=== PATIENT | female | born 1935 | race Caucasian/White ===

== ENCOUNTER 2022-05-02 00:17 | Outpatient (CLI) | payer BC, SELFPAY | END 2022-05-02 00:18 | disposition home or self-care (01) | LOC: AMB 05-12 14:47 | PROVIDERS: PCP Family Medicine; Visit Provider Family Medicine | DX: R10.9 Unspecified abdominal pain (principal) | CPT/HCPCS: A0425; A0427 ==

== ENCOUNTER 2022-05-02 01:00 | Inpatient (IN) | payer BC, SELFPAY ==
[2022-05-02] VITALS (26 sets, daily range): BP systolic 70–128; BP diastolic 40–91; PULSE 75–137; RESP 16–26; TEMP 36.1–37.1; O2SAT 90–98
--- NOTE | 2022-05-02 | CRLHL7_ITS ---
For Patients: As a result of the Century Cures Act, medical imaging exams and procedure reports are released immediately into your electronic medical record. You may view this report before your referring provider. If you have questions, please contact your health care provider. Indication: Abdominal pain obstruction Technique: Noncontrast CT abdomen and pelvis Comparison: CT abdomen and pelvis 07/04/2021 Findings: Heart size normal no pericardial effusion. Nor pleural effusion. Subpleural ground-glass reticular opacities may represent atelectasis and/or fibrotic change. No effusion is seen. Small hiatal hernia fluid-filled distal esophagus. Enteric tube in the stomach. The unenhanced liver spleen pancreas unremarkable cholecystectomy. Dilatation of the common bile duct which is slightly increased from 07/04/2021. No abdominal aortic aneurysm. Kidneys are unremarkable. Adrenal glands unremarkable. Diffuse fluid filled dilated small bowel loops measuring up to 3.7 cm. Transition point not clearly identified but probably in the right lower quadrant. No free air or pneumatosis seen. Urinary bladder decompressed bones are demineralized. Numerous compression fractures of the thoracolumbar spine again seen. There is moderate compression fracture of L5 which has progressed from 07/04/2021. The other compression fractures appear fairly stable. Left mildly displaced superior and inferior pubic rami fractures with extension into the anterior acetabulum new from 2020 but appears probably subacute with some callus formation seen fracture lucencies are visualized. Minimal ascites Probable sacral insufficiency fracture on the left possibly involving much of the right as well. Impression: 1. Distal small-bowel obstruction with diffuse dilated fluid-filled small bowel loops measure up to 3.7 cm. Transition point not identified but probably in the right lower quadrant. No free air pneumatosis seen. 2. Cholecystectomy dilatation common bile duct which is minimally increased from 2020 could be correlated with laboratory exams for obstruction. 3. Bony demineralization. Numerous compression fractures of the thoracolumbar spine. Moderate compression fracture of L5 which appears progressive in 2020. Mildly displaced fractures of the left superior and inferior pubic rami with extension into the left anterior acetabulum probably subacute with some callus formation. Fracture lucencies are visualized. Probable sacral insufficiency fractures on the left and possibly on the right as well. Please note that all CT scans at this facility use dose modulation, iterative reconstruction, and/or weight-based dosing when appropriate to reduce radiation dose to as low as reasonably achievable. Dictated by Aleida Humphrey MD @ 05/02/2022 10:49:24 AM (Electronically Signed)
--- NOTE | 2022-05-02 01:06 | XR_ITS ---
Final Report Patient: BELTRAN SOMMERS Facility:?[facility] [place] Patient ID:?[id number] Site Patient ID:?[id number]. Site :?[id number] Study:?XRay Abdomen 2 views Flat and Upright-05/02/2022 2:01:22 AM Ordering Physician:Magdy Fuentes Final Report: INDICATION: Abdominal pain, vomiting TECHNIQUE: Abdomen/Pelvis radiograph 2 views COMPARISON: 03/03/2015 FINDINGS: Bowel: Multiple loops of air-filled dilated small bowel present throughout the abdomen measuring up to 3.6 cm and likely due to distal small bowel obstruction. Soft tissue: No evidence of pneumoperitoneum present. No suspicious calcifications noted. Surgical clips are noted in the right upper quadrant from prior cholecystectomy. Bone: Unremarkable for age. IMPRESSION: 1. Multiple loops of air-filled dilated small bowel present throughout the abdomen measuring up to 3.6 cm and likely due to distal small bowel obstruction. Dictated by Kirill Smith MD @ 05/02/2022 2:03:22 AM Dictated by: Kirill Smith MD @ 05/02/2022 02:03:26 (Electronic Signature)
--- NOTE | 2022-05-02 01:12 | ED_ITS ---
HPI - Abdominal Pain General Time Seen by Provider: 01:11 Date Seen: 05/02/22 Chief Complaint: Abdominal Pain Stated Complaint: Abdominal pain Source: patient Mode of arrival: EMS Limitations: no limitations History of Present Illness HPI narrative: Patient is the 86-year-old female who presents by EMS for progressive abdominal pain. She has had abdominal pain with distention over the past day. She reports 3 episodes today of bowel movements of which 2 were very large, she reports her abdomen is more distended. And tender throughout. She also reports that she vomited once in the EMS on the way over. She is eating a however last, she does not report any fevers chills dysuria frequency, and there is no blood in her stools or vomitus. I spoke to the doctor on-call for the skilled nursing, she thought she possibly was constipated but then the patient called 911 to be brought to the emergency room. She was recently hospitalized here in early part of April with pelvic fractures, and a sacral ulcer. She was treated non operatively and put on narcotic medications for this. MD elicited complaint: abdominal pain Pertinent past history: constipation Onset (ago): day(s) Pain Consistency: constant Location: diffuse Severity: moderate Quality: cramping Migration to: no migration Exacerbating factors: movement Relieving factors: nothing Related Data Patient : No Home Medications Medication Instructions Recorded Confirmed Lactobacillus acidophilus 0.5 mg PO 05/02/22 (100 million cell) tablet acetaminophen 325 mg tablet mg 05/02/22 albuterol sulfate 90 mcg/actuation INHALATION 05/02/22 aerosol inhaler (ProAir HFA) amlodipine 2.5 mg tablet mg 05/02/22 aspirin 81 mg tablet,delayed mg 05/02/22 release atorvastatin 40 mg tablet mg 05/02/22 calcitonin (salmon) 200 05/02/22 unit/actuation nasal spray calcium carbonate 200 mg calcium mg 05/02/22 (500 mg) chewable tablet (Calcium Antacid) calcium carbonate 500 mg calcium mg 05/02/22 (1,250 mg) tablet (Oyster Shell Calcium 500) carboxymethylcellulose sodium 1 % drp OPHTHALMIC (EYE) 05/02/22 eye drops (Artificial Tears (carboxymethylcellulose)) cetirizine 10 mg tablet mg 05/02/22 cetirizine 5 mg tablet mg 05/02/22 cholecalciferol (vitamin D3) 50 05/02/22 mcg (2,000 unit) tablet clopidogrel 75 mg tablet mg 05/02/22 coenzyme Q10 100 mg capsule mg PO 05/02/22 cadence.stocking,knee,reg,smal 05/02/22 05/02/22 (T.E.D. Anti-Embolism Stocking) estradiol 0.01% (0.1 mg/gram) VAGINAL 05/02/22 vaginal cream famotidine 20 mg tablet mg 05/02/22 furosemide 20 mg tablet mg 05/02/22 glucose 4 gram chewable tablet g 05/02/22 (TRUEplus Glucose) hydrocortisone 2.5 % topical cream applic TOPICAL 05/02/22 hydrocortisone 2.5 % topical cream 05/02/22 with perineal applicator hydrocortisone 5 mg tablet mg 05/02/22 insulin glargine 100 unit/mL (3 unit SUBCUT 05/02/22 mL) subcutaneous pen (Lantus Solostar U-100 Insulin) insulin glargine-yfgn 100 unit/mL unit SUBCUT 05/02/22 (3 mL) subcutaneous pen insulin lispro 100 unit/mL SUBCUT 05/02/22 subcutaneous pen (Humalog KwikPen (U-100) Insulin) levothyroxine 75 mcg tablet mcg 05/02/22 lisinopril 5 mg tablet mg 05/02/22 loratadine 10 mg tablet mg 05/02/22 magnesium oxide mg 05/02/22 magnesium oxide 400 mg (241.3 mg mg 05/02/22 magnesium) tablet mirtazapine 7.5 mg tablet mg 05/02/22 morphine 15 mg immediate release mg 05/02/22 tablet morphine 15 mg tablet,extended mg PO 05/02/22 release multivit-iron 18 mg-folic acid 400 tab PO 05/02/22 mcg-calcium 500 mg-minerals tablet (Women's One Daily) nystatin 100,000 unit/gram topical TOPICAL 05/02/22 powder olopatadine 0.2 % eye drops drp OPHTHALMIC (EYE) 05/02/22 ondansetron HCl 4 mg tablet mg 05/02/22 oxycodone 5 mg tablet mg 05/02/22 pen needle,diabetic dual safty 30 05/02/22 05/02/22 gauge x 3/16 (BD AutoShield Duo Pen Needle) polyethylene glycol 3350 17 g 05/02/22 gram/dose oral powder polyvinyl alcohol 1.4 % eye drops drp OPHTHALMIC (EYE) 05/02/22 sennosides 8.6 mg-docusate sodium PO 05/02/22 50 mg tablet (Senexon-S) sodium chloride 0.65 % nasal spray INTRANASAL 05/02/22 aerosol (Deep Sea Nasal) vitamin B complex (Vitamins B cap 05/02/22 Complex capsule) Allergies Allergy/AdvReac Type Severity Reaction Status Date / Time adhesive tape Allergy Mild Rash Verified 05/02/22 01:16 diclofenac Allergy Unknown Verified 05/02/22 01:16 aspartame Allergy Unverified 05/02/22 01:16 beclomethasone Allergy Unverified 05/02/22 01:16 bisacodyl Allergy Unverified 05/02/22 01:16 dexamethasone Allergy Unverified 05/02/22 01:16 doxycycline Allergy Unverified 05/02/22 01:16 erythromycin base Allergy Unverified 05/02/22 01:16 gabapentin Allergy Unverified 05/02/22 01:16 hydrochlorothiazide Allergy Unverified 05/02/22 01:16 lactase [From Dairy Aid] Allergy Unverified 05/02/22 01:16 meclizine Allergy Unverified 05/02/22 01:16 metformin Allergy Unverified 05/02/22 01:16 metoclopramide Allergy Unverified 05/02/22 01:16 nabumetone [From Relafen] Allergy Unverified 05/02/22 01:16 propranolol Allergy Unverified 05/02/22 01:16 raloxifene Allergy Unverified 05/02/22 01:16 ramipril Allergy Unverified 05/02/22 01:16 tobramycin Allergy Unverified 05/02/22 01:16 venlafaxine Allergy Unverified 05/02/22 01:16 Review of Systems Status of ROS Reports: 10 or more systems reviewed and unremarkable except as noted in History and below Const Denies: fever, chills, change in weight, fatigue or night sweats Eyes Denies: change in vision or blurry vision ENMT Denies: throat pain or neck pain Cardio Denies: chest pain, palpitations or shortness of breath with exertion Resp Denies: shortness of breath, cough, wheezing, stridor or pain on inspiration GI Reports: abdominal pain, nausea, vomiting and bloating; Denies: coffee grounds in vomit, heartburn, diarrhea or excessive passing of gas Denies: painful urination, urinary frequency or urinary urgency Musculo Denies: neck pain Integ/Breast Denies: rash or itching Neuro Denies: headache, numbness in extremities, weakness in extremities or lack of coordination Endo Denies: excessive urination, excessive thirst or fatigue [place]anthosh/Lymph Denies: easy bruising or easy bleeding Allergy/Immuno Denies: wheezing PFSH PFSH Medical History (Updated 05/02/22 @ 03:26 by Alfredo Carrion MD) Anxiety Asthma Atherosclerotic cardiovascular disease Cataract Chronic kidney disease (CKD) stage G3a/A1, moderately decreased glomerular filtration rate (GFR) between 45-59 mL/min/1.73 square meter and albuminuria creatinine ratio less than 30 mg/g Constipation Convulsions Diabetes mellitus type 1 Dorsalgia GERD (gastroesophageal reflux disease) Hyperlipidemia Hypothyroidism Osteoarthritis Pelvic fracture Postmenopausal atrophic vaginitis Pressure ulcer of sacral region, unstageable Primary adrenocortical insufficiency Primary hypertension Unspecified dementia without behavioral disturbance Vertebral fracture Surgical History (Updated 05/02/22 @ 01:37 by Nannette Bowman RN) No significant past surgical history Social History Smoking Status: Never smoker Second hand tobacco smoke exposure: No How often do you have a drink containing alcohol: never AUDIT-C Alcohol total score: 0 Non-prescribed substance use: denies use service: No Exam Narrative: Exam Narrative: Patient is elderly very thin female presenting here with the above complaints. She is alert and oriented x3. Head eyes ears nose and throat shown normal mu cosa, normal ears, normal tympanic membranes. No evidence of any erythema of the throat. Her neck is supple full range of motion. She has some itjw-mo-qrsuqulu kyphosis of her back. But her air entry bilaterally is easy. No evidence of bruising over her back is no tenderness of her thoracic lumbar or cervical areas. Her chest is good air entry bilaterally with no tenderness in her heart sounds are normal. Her abdomen is diffusely distended. She is then enough that she can see the small bowel protruding lines on the abdomen. No tenderness to pelvis she moves all his extremities well. With normal cap refill. However she is pale. With nurse Audra present I did a rectal examination which shows liquid stool but no large amounts stains Hemoccult negative. Const: Vital Signs, click to edit/add: Vital Signs - 24 hr 05/02/22 01:00 Temperature 98.0 F Pulse Rate [Right Pulse Oximeter] 89 Respiratory Rate 18 Blood Pressure [Le ft Upper Arm] 127/91 H Pulse Oximetry 97 Course Reevaluation(s) Reevaluation #1: Patient is had multiple episodes of vomiting here in the department. At this point I think a NG tube, and small amount of benzodiazepine will help her. She will need admission, and I will order a CT scan. I will talk to the the hospitalist. Patient also had a large bowel movement Time: 03:24 Vital Signs Vital signs: Initial Vital Signs Temperature 98.0 F 05/02/22 01:00 Temperature Source Temporal Artery Scan 05/02/22 01:00 Pulse Rate 89 05/02/22 01:00 Pulse Rhythm 05/02/22 01:00 Pulse Strength 0+ Absent 05/02/22 01:00 Respiratory Rate 18 05/02/22 01:00 Blood Pressure 127/91 H 05/02/22 01:00 Blood Pressure Mean 103 05/02/22 01:00 Blood Pressure Position Supine 05/02/22 01:00 Pulse Oximetry 97 05/02/22 01:00 Oxygen Delivery Method 05/02/22 01:00 Vital Signs Temperature 98.0 F 05/02/22 01:00 Pulse Rate 89 05/02/22 01:00 Respiratory Rate 18 05/02/22 01:00 Blood Pressure 127/91 H 05/02/22 01:00 Pulse Oximetry 97 05/02/22 01:00 Temperature 98.0 F 05/02/22 01:00 Pulse Rate 89 05/02/22 01:00 Respiratory Rate 18 05/02/22 01:00 Blood Pressure 127/91 H 05/02/22 01:00 Pulse Oximetry 97 05/02/22 01:00 MDM - Abdominal Pain MDM Narrative Medical decision making narrative: During the evaluation of this patient I considered multiple differential diagnosis including life-threatening differentials which are appendicitis, aortic aneurysm, mesenteric ischemia, bowel perforation, ectopic , volvulus and bowel obstruction, other differential diagnosis include but are not limited to inflammatory bowel disease, cholecystitis, pancreatitis, hepatitis, gastritis, GERD, diverticulitis, peptic ulcer disease, pyelonephritis/UTI, renal colic/stone, pelvic inflammatory disease, cervicitis, endometritis, intrauterine , dysfunctional uterine bleeding, ovarian cyst/torsion, spontaneous as well as other etiologies. She has had previous cholecystectomy and appendectomy. So the chance of a bowel obstruction is somewhat. Although I think constipation would be the most likely given her history. As the patient continues to vomit we will do an NG give her little Ativan. I will consult the hospitalist also. Differential Diagnosis Differential diagnosis: Likely abdominal pain, constipation, diverticulitis, gastroenteritis and small bowel obstruction Medical Records Attestation: I reviewed the patient's medical records. Lab Data Attestation: I reviewed the patient's lab results. Labs: Lab Results 05/02/22 05/02/22 05/02/22 Range/Units 01:25 01:55 01:55 WBC 12.66 H (4.50-11.00) K/uL RBC 4.37 (4.00-5.20) m/uL Hgb 13.5 (12.0-16.0) gm/dL Hct 41.6 (33.0-51.0) % MCV 95 (80-100) fL MCH 31 (26-34) pg MCHC 33 (32-36) gm/dL RDW Coeff of Sharmaine 14.7 (11.5-15.5) % Plt Count 349 (140-440) K/uL Neut % (Auto) 71.4 (42.0-72.0) % Lymph % (Auto) 16.7 L (20-44) % [place] % (Auto) 9.3 (0.0-11.0) % Eos % (Auto) 2.0 (0.0-7.0) % Baso % (Auto) 0.3 (0.0-3.0) % Neut # (Auto) 9.00 H (1.7-7.0) K/uL Lymph # (Auto) 2.10 (0.90-2.90) K/uL [place] # (Auto) 1.20 H (0.00-0.90) K/UL Eos # (Auto) 0.30 (0.00-0.50) K/uL Baso # (Auto) 0.00 (0.00-0.30) K/uL Abs Immat Gran (auto) 0.04 (0.00-0.30) K/uL Sodium 132 L (135-149) mmol/L Potassium 4.1 (3.6-5.1) mmol/L Chloride 97 (96-114) mmol/L Carbon Dioxide 26 (20-32) mmol/L BUN 18 (7-30) mg/dL Creatinine 0.8 (0.5-1.5) mg/dL Glucose 287 H (60-115) mg/dL Lactate (0.5-1.9) mmol/L Calcium 10.0 (8.4-10.6) mg/dL SARS-CoV-2 (PCR) Negative SARS-CoV-2 (Negative) Influenza Type A (PCR) NEGATIVE (Negative) Influenza Type B (PCR) NEGATIVE (Negative) RSV (PCR) NEGATIVE (Negative) 05/02/22 Range/Units 01:55 WBC (4.50-11.00) K/uL RBC (4.00-5.20) m/uL Hgb (12.0-16.0) gm/dL Hct (33.0-51.0) % MCV (80-100) fL MCH (26-34) pg MCHC (32-36) gm/dL RDW Coeff of Sharmaine (11.5-15.5) % Plt Count (140-440) K/uL Neut % (Auto) (42.0-72.0) % Lymph % (Auto) (20-44) % [place] % (Auto) (0.0-11.0) % Eos % (Auto) (0.0-7.0) % Baso % (Auto) (0.0-3.0) % Neut # (Auto) (1.7-7.0) K/uL Lymph # (Auto) (0.90-2.90) K/uL [place] # (Auto) (0.00-0.90) K/UL Eos # (Auto) (0.00-0.50) K/uL Baso # (Auto) (0.00-0.30) K/uL Abs Immat Gran (auto) (0.00-0.30) K/uL Sodium (135-149) mmol/L Potassium (3.6-5.1) mmol/L Chloride (96-114) mmol/L Carbon Dioxide (20-32) mmol/L BUN (7-30) mg/dL Creatinine (0.5-1.5) mg/dL Glucose (60-115) mg/dL Lactate 1.2 (0.5-1.9) mmol/L Calcium (8.4-10.6) mg/dL SARS-CoV-2 (PCR) (Negative) Influenza Type A (PCR) (Negative) Influenza Type B (PCR) (Negative) RSV (PCR) (Negative) Imaging Data Abdominal x-ray: Attestation: I have reviewed the pertinent imaging results. My impression: Bowel obstruction multiple air-fluid levels are seen. I will order a CT scan Radiologist's impression: Patient: BELTRAN SOMMERS Facility:?[facility] Patient ID:?[id number] Site Patient ID:?[id number]. Site :?[id number] Study:?XRay Abdomen 2 views Flat and Upright-05/02/2022 2:01:22 AM Ordering Physician:Magdy Fuentes Final Report: INDICATION: Abdominal pain, vomiting TECHNIQUE: Abdomen/Pelvis radiograph 2 views COMPARISON: 03/03/2015 FINDINGS: Bowel: Multiple loops of air-filled dilated small bowel present throughout the abdomen measuring up to 3.6 cm and likely due to distal small bowel obstruction. Soft tissue: No evidence of pneumoperitoneum present. No suspicious calcificat ions noted. Surgical clips are noted in the right upper quadrant from prior cholecystectomy. Bone: Unremarkable for age. IMPRESSION: 1. Multiple loops of air-filled dilated small bowel present throughout the abdomen measuring up to 3.6 cm and likely due to distal small bowel obstruction. Dictated by Kirill Smith MD @ 05/02/2022 2:03:22 AM Dictated by: Kirill Smith MD @ 05/02/2022 02:03:26 (Electronic Signature) Discharge Plan Discharge Clinical Impression: Small bowel obstruction Patient Disposition: Admitted As Inpatient
[2022-05-02 02:02] LABS: Lactate* 1.2 mmol/L (0.5-1.9)
[2022-05-02 02:05] LABS: Basophils Percent Auto 0.3 % (0.0-3.0); Hematocrit 41.6 % (33.0-51.0); Hemoglobin* 13.5 gm/dL (12.0-16.0); Immature Granulocytes Abs Auto 0.04 K/uL (0.00-0.30); Lymphocytes Percent Auto 16.7 % (20-44); Mean Corpuscular HGB Conc 33 gm/dL (32-36); Mean Corpuscular Hemoglobin 31 pg (26-34); Mean Corpuscular Volume 95 fL (80-100); Monocytes Percent Auto 9.3 % (0.0-11.0); Neutrophils Percent Auto 71.4 % (42.0-72.0); Platelet Count* 349 K/uL (140-440); RDW Coefficient of Variation % 14.7 % (11.5-15.5); Red Blood Count 4.37 m/uL (4.00-5.20); White Blood Count* 12.66 K/uL (4.50-11.00)
[2022-05-02 02:17] LABS: PCR FLU A NEGATIVE (Negative); PCR FLU B NEGATIVE (Negative); PCR RSV NEGATIVE (Negative); SARS PCR* Negative SARS-CoV-2 (Negative)
[2022-05-02] MEDS: ONDANSETRON 2 MG/ML inj 4 MG IVP ×3 (02:28→18:37)
[2022-05-02] MEDS: 0.9 % SODIUM CHLORIDE 500 ML 500 ML IV (02:29)
[2022-05-02 02:30] LABS: Blood Urea Nitrogen* 18 mg/dL (7-30); Carbon Dioxide* 26 mmol/L (20-32); Chloride* 97 mmol/L (96-114); Creatinine* 0.8 mg/dL (0.5-1.5); Estimated Glomerular Filt Rate 72.61; Glucose* 287 mg/dL (60-115); Potassium* 4.1 mmol/L (3.6-5.1); Sodium* 132 mmol/L (135-149)
--- NOTE | 2022-05-02 02:41 | ED.NURSE ---
pt. with small emesis. medicated with zofran.
[2022-05-02] MEDS: MORPHINE 4 MG/ML INJ IVP (02:52)
--- NOTE | 2022-05-02 03:33 | ED.NURSE ---
Addendum entered by Nannette Bowman RN 05/02/22 03:40: Gastric ph checked at the bedside to confirm NG placement. PH 4. Original Note: 14 kinyarwanda ng placed. liquid green stomach contents. confirmed with gastracult. marked at 56 at the nose. secured with clamp.
[2022-05-02] MEDS: LORazepam 2 MG/ML inj 1 MG IVP (03:36)
--- NOTE | 2022-05-02 04:52 | ED.NURSE ---
report given to Roxanne LANDRY on med/surg. pt. transported via cart to room 247. ng patent.
--- NOTE | 2022-05-02 05:48 | PM.IMCN1 ---
Date of Consult Primary Care Provider: Onur Schreiber MD Consult Narrative Narrative: Shira Stauffer is a 86 year old female [facility] Medical History (Updated 05/02/22 @ 03:26 by Alfredo Carrion MD) Anxiety Asthma Atherosclerotic cardiovascular disease Cataract Chronic kidney disease (CKD) stage G3a/A1, moderately decreased glomerular filtration rate (GFR) between 45-59 mL/min/1.73 square meter and albuminuria creatinine ratio less than 30 mg/g Constipation Convulsions Diabetes mellitus type 1 Dorsalgia GERD (gastroesophageal reflux disease) Hyperlipidemia Hypothyroidism Osteoarthritis Pelvic fracture Postmenopausal atrophic vaginitis Pressure ulcer of sacral region, unstageable Primary adrenocortical insufficiency Primary hypertension Unspecified dementia without behavioral disturbance Vertebral fracture Surgical History (Updated 05/02/22 @ 01:37 by Nannette Bowman RN) No significant past surgical history Social History Smoking Status: Never smoker Second hand tobacco smoke exposure: No How often do you have a drink containing alcohol: never AUDIT-C Alcohol total score: 0 Non-prescribed substance use: denies use service: No Meds Home Medications and Allergies Home Medications Medication Instructions Recorded Confirmed Type Lactobacillus acidophilus 0.5 mg PO 05/02/22 History (100 million cell) tablet acetaminophen 325 mg tablet mg 05/02/22 History albuterol sulfate 90 mcg/actuation INHALATION 05/02/22 History aerosol inhaler (ProAir HFA) amlodipine 2.5 mg tablet mg 05/02/22 History aspirin 81 mg tablet,delayed mg 05/02/22 History release atorvastatin 40 mg tablet mg 05/02/22 History calcitonin (salmon) 200 05/02/22 History unit/actuation nasal spray calcium carbonate 200 mg calcium mg 05/02/22 History (500 mg) chewable tablet (Calcium Antacid) calcium carbonate 500 mg calcium mg 05/02/22 History (1,250 mg) tablet (Oyster Shell Calcium 500) carboxymethylcellulose sodium 1 % drp OPHTHALMIC (EYE) 05/02/22 History eye drops (Artificial Tears (carboxymethylcellulose)) cetirizine 10 mg tablet mg 05/02/22 History cetirizine 5 mg tablet mg 05/02/22 History cholecalciferol (vitamin D3) 50 05/02/22 History mcg (2,000 unit) tablet clopidogrel 75 mg tablet mg 05/02/22 History coenzyme Q10 100 mg capsule mg PO 05/02/22 History cadence.stocking,knee,reg,smal 05/02/22 05/02/22 History (T.E.D. Anti-Embolism Stocking) estradiol 0.01% (0.1 mg/gram) VAGINAL 05/02/22 History vaginal cream famotidine 20 mg tablet mg 05/02/22 History furosemide 20 mg tablet mg 05/02/22 History glucose 4 gram chewable tablet g 05/02/22 History (TRUEplus Glucose) hydrocortisone 2.5 % topical cream applic TOPICAL 05/02/22 History hydrocortisone 2.5 % topical cream 05/02/22 History with perineal applicator hydrocortisone 5 mg tablet mg 05/02/22 History insulin glargine 100 unit/mL (3 unit SUBCUT 05/02/22 History mL) subcutaneous pen (Lantus Solostar U-100 Insulin) insulin glargine-yfgn 100 unit/mL unit SUBCUT 05/02/22 History (3 mL) subcutaneous pen insulin lispro 100 unit/mL SUBCUT 05/02/22 History subcutaneous pen (Humalog KwikPen (U-100) Insulin) levothyroxine 75 mcg tablet mcg 05/02/22 History lisinopril 5 mg tablet mg 05/02/22 History loratadine 10 mg tablet mg 05/02/22 History magnesium oxide mg 05/02/22 History magnesium oxide 400 mg (241.3 mg mg 05/02/22 History magnesium) tablet mirtazapine 7.5 mg tablet mg 05/02/22 History morphine 15 mg immediate release mg 05/02/22 History tablet morphine 15 mg tablet,extended mg PO 05/02/22 History release multivit-iron 18 mg-folic acid 400 tab PO 05/02/22 History mcg-calcium 500 mg-minerals tablet (Women's One Daily) nystatin 100,000 unit/gram topical TOPICAL 05/02/22 History powder olopatadine 0.2 % eye drops drp OPHTHALMIC (EYE) 05/02/22 History ondansetron HCl 4 mg tablet mg 05/02/22 History oxycodone 5 mg tablet mg 05/02/22 History pen needle,diabetic dual safty 30 05/02/22 05/02/22 History gauge x 3/16 (BD AutoShield Duo Pen Needle) polyethylene glycol 3350 17 g 05/02/22 History gram/dose oral powder polyvinyl alcohol 1.4 % eye drops drp OPHTHALMIC (EYE) 05/02/22 History sennosides 8.6 mg-docusate sodium PO 05/02/22 History 50 mg tablet (Senexon-S) sodium chloride 0.65 % nasal spray INTRANASAL 05/02/22 History aerosol (Deep Sea Nasal) vitamin B complex (Vitamins B cap 05/02/22 History Complex capsule) Allergies Allergy/AdvReac Type Severity Reaction Status Date / Time adhesive tape Allergy Mild Rash Verified 05/02/22 01:16 diclofenac Allergy Unknown Verified 05/02/22 01:16 aspartame Allergy Unverified 05/02/22 01:16 beclomethasone Allergy Unverified 05/02/22 01:16 bisacodyl Allergy Unverified 05/02/22 01:16 dexamethasone Allergy Unverified 05/02/22 01:16 doxycycline Allergy Unverified 05/02/22 01:16 erythromycin base Allergy Unverified 05/02/22 01:16 gabapentin Allergy Unverified 05/02/22 01:16 hydrochlorothiazide Allergy Unverified 05/02/22 01:16 lactase [From Dairy Aid] Allergy Unverified 05/02/22 01:16 meclizine Allergy Unverified 05/02/22 01:16 metformin Allergy Unverified 05/02/22 01:16 metoclopramide Allergy Unverified 05/02/22 01:16 nabumetone [From Relafen] Allergy Unverified 05/02/22 01:16 propranolol Allergy Unverified 05/02/22 01:16 raloxifene Allergy Unverified 05/02/22 01:16 ramipril Allergy Unverified 05/02/22 01:16 tobramycin Allergy Unverified 05/02/22 01:16 venlafaxine Allergy Unverified 05/02/22 01:16 Exam Const: Vital Signs, click to edit/add: Vital Signs - 24 hr 05/02/22 01:00 05/02/22 03:40 05/02/22 04:55 Temperature 98.0 F 98.0 F Pulse Rate 76 Pulse Rate [Right Pulse Oximeter] 89 75 Respiratory Rate 18 16 16 Blood Pressure 127/89 Blood Pressure [Le ft Upper Arm] 127/91 H 128/84 Pulse Oximetry 97 97 Labs Labs: Short CBC 05/02/22 Range/Units 01:55 WBC 12.66 H (4.50-11.00) K/uL Hgb 13.5 (12.0-16.0) gm/dL Hct 41.6 (33.0-51.0) % Plt Count 349 (140-440) K/uL [facility] 05/02/22 01:55 Sodium 132 L Potassium 4.1 Chloride 97 Carbon Dioxide 26 BUN 18 Creatinine 0.8 Glucose 287 H Calcium 10.0 Assessment and Plan Assessment and plan (1) Small bowel obstruction: Status: Acute Plan [facility] Hospitalist CONSULTATION NOTE: Reason for consult: Suspected small bowel obstruction HPI: Patient is a pleasant 86-year-old female who was admitted for suspected small bowel obstruction. She has received pain medications and benzodiazepine in the ED so she is currently quite sleepy and not providing any history. CODE STATUS was discussed downstairs with the ED provider and she is noted to be DNR/DNI. She did have an NG tube placed after abdominal x-ray was concerning for bowel obstruction. From reviewing ED provider note patient has had several bowel movements. She does have a CT scan ordered but they have been unable to complete it currently. Exam (performed via interactive video with assistance of bedside nurse): General: Drowsy, no acute distress HEENT: Pupils reported ERRL, oral mucosa pink and moist without erythema Lungs: Clear to auscultation bilaterally without crackle or wheeze CV: Regular rate and rhythm without loud murmur rub or gallop Abd: Bowel sounds present, some distention, but no guarding on palpation, does complain of pain per nurse. Ext: No pitting edema noted Skin: No rashes, bruises or lesions appreciated on gross visualization of exposed skin Neuro: Alert, oriented x 3. CN III -VII, XI, XII grossly intact, moves all extremities without any significant focal deficit appreciated by nurse Assessment and Plan: 1. Suspected small bowel obstruction Patient is 86-year-old female admitted from [facility] for suspected small bowel obstruction on abdominal x-ray. She has had several bowel movements so she may have a transition point a bit higher up if she does have a bowel obstruction. Surgery consult should be considered assuming CT scan is consistent with a bowel obstruction once it can be completed. In the interim we will keep patient on gentle IV hydration. Her NG tube will remain to low intermittent suction. She has PRNs available for pain and nausea. Chronic outpatient medications will need to be restarted when patient can take p.o. We will hold off on ordering pharmacologic DVT prophylaxis at this point in time, but they should be ordered in the first 24 hours if surgery is not planned. Patient is a DNR. [facility] This service is available for further assistance as requested by your care team by calling [phone].
[2022-05-02] MEDS: MORPHINE 2 MG/ML inj IVP ×4 (06:15→15:49)
[2022-05-02] MEDS: 0.9 % SODIUM CHLORIDE 1000 ml 1,000 ML 75 ML IV (06:15)
--- NOTE | 2022-05-02 07:32 | PM.IMPN1 ---
Subjective Interval history: ADMISSION HISTORY AND PHYSICAL - HOSPITALIST Chief Complaint: HPI: PAST MEDICAL HISTORY: MEDICATIONS: ALLERGIES: SURGICAL HISTORY: FAMILY HISTORY: Reviewed in EMR HABITS: SOCIAL HISTORY: INVESTIGATIONS: LABS/MICRO/ECG/IMAGING ADMISSION HISTORY AND PHYSICAL - HOSPITALIST Chief Complaint: HPI: PAST MEDICAL HISTORY: MEDICATIONS: ALLERGIES: SURGICAL HISTORY: FAMILY HISTORY: Reviewed in EMR HABITS: SOCIAL HISTORY: INVESTIGATIONS: LABS/MICRO/ECG/IMAGING REVIEW OF SYSTEMS: 12-point ROS completed with patient and negative unless otherwise stated in HPI or below. PHYSICAL EXAM: CODE STATUS: CONSTITUTIONAL: Conversive, good historian. A/O. Knows setting and context. VITAL SIGNS: see record. HEENT: Normocephalic, atraumatic. PERRL, EOMI, conjunctivae pink, no scleral icterus. Ears and nose externally normal. Pharynx normal. NECK: No JVD. No carotid bruit, no thyromegaly, no adenopathy. CHEST: Clear to auscultation bilaterally HEART: S1 and S2 normal. No harsh murmurs. Edema MUSCULOSKELETAL: No gross joint deformity or swelling. NEURO: Cranial nerves intact. Grossly intact. No asymmetric findings. SKIN: No rashes, petechiae, concerning changes PSYCHIATRIC: Euthymic. ADMIT DVT: Lovenox GI: PO intake Time spent: 70 minutes examining patient, conferring with family and patient, care staff, developing care plan REVIEW OF SYSTEMS: 12-point ROS completed with patient and negative unless otherwise stated in HPI or below. PHYSICAL EXAM: CODE STATUS: CONSTITUTIONAL: Conversive, good historian. A/O. Knows setting and context. VITAL SIGNS: see record. HEENT: Normocephalic, atraumatic. PERRL, EOMI, conjunctivae pink, no scleral icterus. Ears and nose externally normal. Pharynx normal. NECK: No JVD. No carotid bruit, no thyromegaly, no adenopathy. CHEST: Clear to auscultation bilaterally HEART: S1 and S2 normal. No harsh murmurs. Edema MUSCULOSKELETAL: No gross joint deformity or swelling. NEURO: Cranial nerves intact. Grossly intact. No asymmetric findings. SKIN: No rashes, petechiae, concerning changes PSYCHIATRIC: Euthymic. ADMIT DVT: Lovenox GI: PO intake Time spent: 70 minutes examining patient, conferring with family and patient, care staff, developing care plan Exam Const: Vital Signs, click to edit/add: Vital Signs - 24 hr 05/02/22 01:00 05/02/22 03:40 05/02/22 04:55 Temperature 98.0 F 98.0 F Pulse Rate 76 Pulse Rate [Apical ] Pulse Rate [Right Pulse Oximeter] 89 75 Respiratory Rate 18 16 16 Blood Pressure 127/89 Blood Pressure [Le ft Upper Arm] 127/91 H 128/84 Blood Pressure [Ri ght Arm] Pulse Oximetry 97 97 05/02/22 05:25 05/02/22 06:01 Temperature 97 F L Pulse Rate Pulse Rate [Apical ] 75 Pulse Rate [Right Pulse Oximeter] Respiratory Rate 16 22 Blood Pressure Blood Pressure [Le ft Upper Arm] Blood Pressure [Ri ght Arm] 111/69 Pulse Oximetry 92 92 Labs Labs: Laboratory Results - last 24 hr 05/02/22 05/02/22 05/02/22 01:25 01:55 01:55 WBC 12.66 H RBC 4.37 Hgb 13.5 Hct 41.6 MCV 95 MCH 31 MCHC 33 RDW Coeff of Sharmaine 14.7 Plt Count 349 Neut % (Auto) 71.4 Lymph % (Auto) 16.7 L [place] % (Auto) 9.3 Eos % (Auto) 2.0 Baso % (Auto) 0.3 Neut # (Auto) 9.00 H Lymph # (Auto) 2.10 [place] # (Auto) 1.20 H Eos # (Auto) 0.30 Baso # (Auto) 0.00 Abs Immat Gran (auto) 0.04 Sodium 132 L Potassium 4.1 Chloride 97 Carbon Dioxide 26 BUN 18 Creatinine 0.8 Glucose 287 H Lactate Calcium 10.0 SARS-CoV-2 (PCR) Negative SARS-CoV-2 Influenza Type A (PCR) NEGATIVE Influenza Type B (PCR) NEGATIVE RSV (PCR) NEGATIVE 05/02/22 01:55 WBC RBC Hgb Hct MCV MCH MCHC RDW Coeff of Sharmaine Plt Count Neut % (Auto) Lymph % (Auto) [place] % (Auto) Eos % (Auto) Baso % (Auto) Neut # (Auto) Lymph # (Auto) [place] # (Auto) Eos # (Auto) Baso # (Auto) Abs Immat Gran (auto) Sodium Potassium Chloride Carbon Dioxide BUN Creatinine Glucose Lactate 1.2 Calcium SARS-CoV-2 (PCR) Influenza Type A (PCR) Influenza Type B (PCR) RSV (PCR)
--- NOTE | 2022-05-02 07:34 | P.IMHP_ITS ---
Hospitalist- H&P: HPI History of Present Illness Date Seen: 05/02/22 Chief complaint: Ambulance Narrative: ADMISSION HISTORY AND PHYSICAL - HOSPITALIST Chief Complaint: Abdominal pain HPI: This is 86-year-old with a history of chronic kidney disease, diabetes, history of pelvic fractures, hypertension, mild dementia who presents with increasing abdominal pain. She lives in a retirement on the [facility] [place]. She had been reporting some abdominal pain with distention over the last 24 hours. She contacted the nurse who then walked her through constipation home care. Her pain increased. She called 911. She was brought in with vomiting and severe abdominal pain. Any movement seemed to make it worse. Pain was not localized. It was described as cramping. Nothing was improving even a bowel movement. She had had 2 of those in the last 24 hours. She had been vomiting small amounts of bilious fluids. Not reporting blood in stool or vomit. PAST MEDICAL HISTORY: Chronic kidney disease Atherosclerotic heart disease Diabetes mellitus, type 1. Insulin requiring Chronic pain History of fall with subsequent seizure in April of 2022. This fall caused a fracture of the left symphysis pubis and right superior pubic ramus. Hypothyroidism History of pelvic fracture Protein calorie malnutrition History of adrenal cortical insufficiency Hypertension Cognitive decline with anxiety MEDICATIONS: Acetaminophen Aspirin 81 mg atorvastatin 40 mg Calcitonin nasal spray Vitamin-D Plavix 75 mg daily Coenzyme Q10 Estradiol vaginal cream Pepcid 20 mg Q 12 Hydrocortisone 5-10 mg b.i.d. Insulin glargine 11 units daily mealtime insulin 2-5 units t.i.d. Levothyroxine 75 mcg Lisinopril 5 mg daily Magnesium oxide 250 mg daily Morphine ER 15 mg t.i.d. Nitroglycerin 0.4 mg sublingual Q 5 minutes p.r.n. Oxycodone 5 mg q.6 p.r.n. MiraLax ALLERGIES: Multiple. See above. SURGICAL HISTORY: Angioplasty Appendectomy Cholecystectomy Colposcopy D&C Mastoidectomy Tonsils and adenoidectomy FAMILY HISTORY: Reviewed in EMR HABITS: Nonsmoker Nondrinker SOCIAL HISTORY: Torey is the [id number] INVESTIGATIONS: LABS/MICRO/ECG/IMAGING Afebrile Pulse has been tachycardic from 1 0 to up to 130s, sinus tach Blood pressures have been soft and hypotensive as low as 70/50 over 80/46. Currently 113/49 Respiratory rate 24 Pulse oximetry 90% on 2 L 43.5 kilos Fluctuating white blood cell count. Hemoglobin stable 13.5-12.6 Metabolic acidosis with a pH of 7.2 Increasing evidence of LUPE, with creatinine up to 1.8 from 0.8 Elevated lactic acid Other labs reviewed in the diagnostics tab UA concentrated no obvious infection 2 KUBsand 2 CTs 1 with contrast 1 without all showed dilated fluid filled loops. Transition point is difficult to appreciate but is felt to be in the right quadrant. REVIEW OF SYSTEMS: 12-point ROS completed with patient and negative unless otherwise stated in HPI or below. PHYSICAL EXAM: CODE STATUS: DNR/DNI CONSTITUTIONAL: Severe pain. Pale. Arousable. Tells me initially that she does not want any interventions other than pain medicine and then later tells me she would like to go for surgery. Cachectic appearing. VITAL SIGNS: see record. Hypotensive. Tachycardic. D compensating. HEENT: Normocephalic, atraumatic. PERRL, EOMI, conjunctivae pink, no scleral icterus. Ears and nose externally normal. Pharynx normal. Dry mucous membranes. NECK: No JVD. No carotid bruit, no thyromegaly, no adenopathy. CHEST: Clear to auscultation bilaterally HEART: S1 and S2 normal. No harsh murmurs. No Edema Abdomen: distended. tender diffusely. Quiescent bowel sounds. MUSCULOSKELETAL: No gross joint deformity or swelling. NEURO: Cranial nerves intact. Grossly intact. No asymmetric findings. SKIN: No rashes, petechiae, concerning changes PSYCHIATRIC: Euthymic. ADMIT DVT: SCDs GI: Ppi. Time spent: 90 minutes examining patient, conferring with family and patient, care staff, developing care plan. 60 minutes of this is in critical care in which I ordered follow-up imaging and discussed with general surgery. I was in the room 4 or 5 times consulting with the family, reassessing my patient. She was hypotensive and tachycardic. We lost IV access. I have ordered blood cultures and broad-spectrum antibiotics, Monroe catheter. Chest x-ray has been reviewed. Patient has little reserve Likely needs surgery for adhesion takedown and resolution of her small-bowel obstruction. The patient is developing signs of sepsis, multiorgan system failure, poor tolerance of this pain. [facility] Medical History (Updated 05/02/22 @ 15:37 by Leigh Ann Reaves MD) Anxiety Asthma Atherosclerotic cardiovascular disease Cataract Chronic kidney disease (CKD) stage G3a/A1, moderately decreased glomerular filtration rate (GFR) between 45-59 mL/min/1.73 square meter and albuminuria creatinine ratio less than 30 mg/g Constipation Convulsions Diabetes mellitus type 1 Dorsalgia GERD (gastroesophageal reflux disease) Hyperlipidemia Hypothyroidism Osteoarthritis Pelvic fracture Postmenopausal atrophic vaginitis Pressure ulcer of sacral region, unstageable Primary adrenocortical insufficiency Primary hypertension Type 1 diabetes mellitus Unspecified dementia without behavioral disturbance Vertebral fracture Surgical History (Updated 05/02/22 @ 01:37 by Nannette Bowman RN) No significant past surgical history Social History Highest level of school completed/degree received: don't know Smoking Status: Never smoker Do you use any of these nicotine containing products: None Second hand tobacco smoke exposure: No How often do you have a drink containing alcohol: never AUDIT-C Alcohol total score: 0 Non-prescribed substance use: denies use Caffeine: No service: No Meds Home Medications and Allergies Home Medications Medication Instructions Recorded Confirmed Type acetaminophen 325 mg tablet 650 mg PO QID PRN 05/02/22 05/02/22 History aspirin 81 mg tablet,delayed 81 mg PO DAILY 05/02/22 05/02/22 History release atorvastatin 40 mg tablet 40 mg PO DAILY 05/02/22 05/02/22 History calcitonin (salmon) 200 1 spray INTRANASAL (ALT) DAILY 05/02/22 05/02/22 History unit/actuation nasal spray cholecalciferol (vitamin D3) 50 50 mcg PO DAILY 05/02/22 05/02/22 History mcg (2,000 unit) tablet clopidogrel 75 mg tablet 75 mg PO DAILY 05/02/22 05/02/22 History coenzyme Q10 100 mg capsule 100 mg PO DAILY 05/02/22 05/02/22 History cadence.stocking,knee,reg,smal 05/02/22 05/02/22 History (T.E.D. Anti-Embolism Stocking) estradiol 0.01% (0.1 mg/gram) 1 appful VAGINAL .FRIDAY,Friday05/02/22 05/02/22 History vaginal cream famotidine 20 mg tablet 20 mg PO Q12H 05/02/22 05/02/22 History glucose 4 gram chewable tablet 4 g PO PRN PRN 05/02/22 05/02/22 History (TRUEplus Glucose) hydrocortisone 2.5 % topical cream 1 applic TOPICAL BID PRN 05/02/22 05/02/22 History with perineal applicator hydrocortisone 5 mg tablet 5 - 10 mg PO BID 05/02/22 05/02/22 History insulin glargine 100 unit/mL (3 11 unit SUBCUT DAILY 05/02/22 05/02/22 History mL) subcutaneous pen (Lantus Solostar U-100 Insulin) insulin lispro 100 unit/mL 2 - 5 unit SUBCUT TIDWM 05/02/22 05/02/22 History subcutaneous pen (Humalog KwikPen (U-100) Insulin) lactobacillus combination no.4 3 3,000 mmu cells PO DAILY 05/02/22 05/02/22 History billion cell capsule (Probiotic) levothyroxine 75 mcg tablet 75 mcg PO DAILY 05/02/22 05/02/22 History lisinopril 5 mg tablet 5 mg PO DAILY 05/02/22 05/02/22 History loratadine 10 mg tablet 10 mg PO DAILY 05/02/22 05/02/22 History magnesium oxide 250 mg PO DAILY 05/02/22 05/02/22 History morphine 15 mg tablet,extended 15 mg PO TID 05/02/22 05/02/22 History release multivit-iron 18 mg-folic acid 400 1 tab PO DAILY 05/02/22 05/02/22 History mcg-calcium 500 mg-minerals tablet (Women's One Daily) nitroglycerin 0.4 mg sublingual 0.4 mg SUBLINGUAL Q5M 05/02/22 05/02/22 History tablet (Nitrostat) nystatin 100,000 unit/gram topical 1 applic TOPICAL BID PRN 05/02/22 05/02/22 History powder olopatadine 0.2 % eye drops 1 drp OPHTHALMIC (EYE) DAILY 05/02/22 05/02/22 History oxycodone 5 mg tablet 5 mg PO Q6H PRN 05/02/22 05/02/22 History pen needle,diabetic dual safty 30 05/02/22 05/02/22 History gauge x 3/16 (BD AutoShield Duo Pen Needle) polyethylene glycol 3350 17 17 g PO BID 05/02/22 05/02/22 History gram/dose oral powder sennosides 8.6 mg-docusate sodium 1 tab-cap PO BID PRN 05/02/22 05/02/22 History 50 mg tablet (Senexon-S) sodium chloride 0.65 % nasal spray 1 spray INTRANASAL BID 05/02/22 05/02/22 History aerosol (Deep Sea Nasal) vitamin B complex (Vitamins B 1 cap PO DAILY 05/02/22 05/02/22 History Complex capsule) Allergies Allergy/AdvReac Type Severity Reaction Status Date / Time adhesive tape Allergy Mild Rash Verified 05/02/22 01:16 diclofenac Allergy Unknown Verified 05/02/22 01:16 aspartame Allergy Unverified 05/02/22 01:16 beclomethasone Allergy Unverified 05/02/22 01:16 bisacodyl Allergy Unverified 05/02/22 01:16 dexamethasone Allergy Unverified 05/02/22 01:16 doxycycline Allergy Unverified 05/02/22 01:16 erythromycin base Allergy Unverified 05/02/22 01:16 gabapentin Allergy Unverified 05/02/22 01:16 hydrochlorothiazide Allergy Unverified 05/02/22 01:16 lactase [From Dairy Aid] Allergy Unverified 05/02/22 01:16 meclizine Allergy Unverified 05/02/22 01:16 metformin Allergy Unverified 05/02/22 01:16 metoclopramide Allergy Unverified 05/02/22 01:16 nabumetone [From Relafen] Allergy Unverified 05/02/22 01:16 propranolol Allergy Unverified 05/02/22 01:16 raloxifene Allergy Unverified 05/02/22 01:16 ramipril Allergy Unverified 05/02/22 01:16 tobramycin Allergy Unverified 05/02/22 01:16 venlafaxine Allergy Unverified 05/02/22 01:16 Exam Const: Vital Signs, click to edit/add: Vital Signs - 24 hr 05/02/22 01:00 05/02/22 03:40 05/02/22 04:55 Temperature 98.0 F 98.0 F Pulse Rate 76 Pulse Rate [Apical ] Pulse Rate [Right Pulse Oximeter] 89 75 Respiratory Rate 18 16 16 Blood Pressure 127/89 Blood Pressure [Le ft Upper Arm] 127/91 H 128/84 Blood Pressure [Ri ght Arm] Pulse Oximetry 97 97 05/02/22 05:25 05/02/22 06:01 Temperature 97 F L Pulse Rate Pulse Rate [Apical ] 75 Pulse Rate [Right Pulse Oximeter] Respiratory Rate 16 22 Blood Pressure Blood Pressure [Le ft Upper Arm] Blood Pressure [Ri ght Arm] 111/69 Pulse Oximetry 92 92 Hospitalist - H&P: Result Labs Labs: Short CBC 05/02/22 Range/Units 01:55 WBC 12.66 H (4.50-11.00) K/uL Hgb 13.5 (12.0-16.0) gm/dL Hct 41.6 (33.0-51.0) % Plt Count 349 (140-440) K/uL BMP 05/02/22 01:55 Sodium 132 L Potassium 4.1 Chloride 97 Carbon Dioxide 26 BUN 18 Creatinine 0.8 Glucose 287 H Calcium 10.0 Assessment and Plan Assessment and plan (1) Small bowel obstruction: Status: Acute Assessment and Plan: Significant concern for ischemic bowel as it relates to her small-bowel obstruction. NG tube was placed. Attempt at conservative care is failing. NG tube has been intermittently successful but currently draining green bilious fluid. PH shows a metabolic acidosis. Lactate is increasing. Creatinine is increasing. Heart rate is increasing blood pressure is soft.Her pain is being controlled with morphine. She is receiving IV fluid bolus. General surgery is aware. We have reordered her CT with contrast. There was no actual transition point noted. Likely adhesive disease. Monroe catheter was placed. Patient moved to the ICU. Continuous monitoring. (2) LUPE (acute kidney injury): Status: Acute Assessment and Plan: Creatinine started at 0.8 and is now currently 1.8. Patient is getting fluids. Ischemic bowel related to the small-bowel obstruction is likely at fault. (3) Sepsis: Status: Acute Assessment and Plan: Blood cultures, urine culture. IV ertapenem has been started. (4) Type 1 diabetes mellitus: Status: Acute Plan Insulin drip with D5 LR likely needed this evening after surgery. Patient may need a central line. Pressors may be indicated. Fluid resuscitation and parental nutrition is likely needed. Patient is high risk for complication and multi organ system failure
--- NOTE | 2022-05-02 09:07 | XR_ITS ---
Final Report Patient: BELTRAN SOMMERS Facility:?[facility] Patient ID:?[id number] Site Patient ID:?[id number]. Site :?[id number] Study:?XRay Abdomen 1V-05/02/2022 9:29:39 AM Ordering Physician:?Jean Paul Beltrán Final Report: Indication: Small-bowel obstruction Technique: KUB Comparison: KUB 05/02/2022 Findings: NG tube in the stomach. Diffuse air-filled dilated small bowel loops measuring up to 3.6 centimeters overall not significantly changed. Bowel loops may be minimally less distended no free air seen. Dictated by Aleida Humphrey MD @ 05/02/2022 9:46:01 AM (Electronic Signature)
--- NOTE | 2022-05-02 09:26 | PC.SOCIAL ---
Discharge plan: Called [facility] and spoke with nursing who confirmed pt is on a bed hold at the [facility] group home and can return at discharge. finish repair worker to follow up as needed.
[2022-05-02 09:41] LABS: HCO3 VBG 26 mmol/L (21-28); PCO2 VBG 54 mmHG (40-50); PO2 VBG 26.9 mmHG (25-47); pH VBG 7.285 (7.32-7.43)
[2022-05-02 09:50] LABS: Basophils Absolute Auto 0.03 K/uL (0.00-0.30); Basophils Percent Auto 0.3 % (0.0-3.0); Eosinophils Absolute Auto 0.12 K/uL (0.00-0.50); Eosinophils Percent Auto 1.2 % (0.0-7.0); Hemoglobin* 14.2 gm/dL (12.0-16.0); Immature Granulocytes Abs Auto 0.01 K/uL (0.00-0.30); Lactate* 4.5 mmol/L (0.5-1.9); Lymphocytes Percent Auto 19.3 % (20-44); Mean Corpuscular HGB Conc 32 gm/dL (32-36); Mean Corpuscular Hemoglobin 30 pg (26-34); Mean Corpuscular Volume 96 fL (80-100); Neutrophils Absolute Auto 6.97 K/uL (1.7-7.0); Neutrophils Percent Auto 70.1 % (42.0-72.0); Platelet Count* 354 K/uL (140-440); RDW Coefficient of Variation % 14.7 % (11.5-15.5); Red Blood Count 4.69 m/uL (4.00-5.20); White Blood Count* 9.94 K/uL (4.50-11.00)
[2022-05-02 09:52] LABS: Slide Review Reflex No
[2022-05-02 10:01] LABS: Albumin* 4.6 g/dL (3.3-5.0); Chloride* 96 mmol/L (96-114)
[2022-05-02 10:02] LABS: Potassium* 3.6 mmol/L (3.6-5.1); Sodium* 133 mmol/L (135-149)
[2022-05-02 10:04] LABS: Alkaline Phosphatase* 373 U/L (40-150); Aspartate Amino Transferase* 42 U/L (12-35); Bilirubin Total* 0.9 mg/dL (0.1-1.5); Blood Urea Nitrogen* 22 mg/dL (7-30); Carbon Dioxide* 24 mmol/L (20-32); Creatinine* 1.4 mg/dL (0.5-1.5); Gamma Glutamyl Transpeptidase* 40 U/L (8-55); Total Protein* 6.9 g/dL (6.0-8.3)
[2022-05-02 10:05] LABS: Alanine Aminotransferase* 36 U/L (4-35); Glucose* 223 mg/dL (60-115); Magnesium* 2.4 mg/dL (1.5-2.6)
[2022-05-02 10:07] LABS: C Reactive Protein* 0.7 mg/dL (0.5-1.0)
[2022-05-02 10:12] LABS: NT Pro B Type NatriureticPept* 487 PG/mL (0-450)
[2022-05-02 10:33] LABS: Troponin I* < 0.01 ng/mL (0.01-0.04)
[2022-05-02] MEDS: PROCHLORPERAZINE 5 MG/ML VIAL IV (11:17)
[2022-05-02] MEDS: 0.9 % SODIUM CHLORIDE 1000 ml 1,000 ML IV (11:20)
--- NOTE | 2022-05-02 11:42 | CRLHL7_ITS ---
For Patients: As a result of the Century Cures Act, medical imaging exams and procedure reports are released immediately into your electronic medical record. You may view this report before your referring provider. If you have questions, please contact your health care provider. Indication: Surgical planning. Small-bowel obstruction. Technique: Multiple contiguous axial images were obtained from the lung bases through the symphysis pubis after the intravenous administration of 62 cc Isovue 370. Please note that all CT scans at this facility use dose modulation, iterative reconstruction, and/or weight-based dosing when appropriate to reduce radiation dose to as low as reasonably achievable. Comparison: The study from earlier today. Findings: Right basilar atelectasis is identified. The heart is normal in size. A small hiatal hernia is identified. An NG tube is identified with the tip in the body of the stomach. The left kidney is mildly atrophic. The spleen, pancreas, liver, and adrenal glands are normal. No hydronephrosis is identified. Postsurgical changes of cholecystectomy are identified. In the pelvis, a Monroe catheter is present within the urinary bladder. The uterus is grossly normal. Dilated fluid-filled loops of small bowel are identified. When compared with the previous exam, this is not significantly changed. Again, the transition point is difficult to appreciate, but is felt to be in the right lower quadrant. Multilevel compression fractures of the lumbar spine. Left superior and inferior pubic rami fractures extending into the anterior acetabulum. Probable fractures identified the posterior right lower ribs. Sacral insufficiency fractures. Impression: Small-bowel obstruction with dilated fluid-filled loops of small bowel, stable. Postsurgical changes of a cholecystectomy. Numerous fractures. Please note that all CT scans at this facility use dose modulation, iterative reconstruction, and/or weight-based dosing when appropriate to reduce radiation dose to as low as reasonably achievable. Dictated by Stephanie Del Angel MD @ 05/02/2022 3:04:41 PM (Electronically Signed)
--- NOTE | 2022-05-02 12:44 | PC.NURSE ---
Shift Note, Change of Nurse due to acuity: Patient is pleasant and cooperative. Patient is minimally verbal due to discomfort, but does verbalize pain and nausea. Patient abdominal pain has been 10/10, 2 mg morphine has been given x3, and both antinausea meds were given. Patient's bowel tones are hypoactive, abdomen is very distended and firm. Patient had an emesis of 400. Patient currently has no IV due to infiltration. Patient is very hypotensive but vitally stable, o2 greater than 90's, lungs clear. Patient's pulses are very soft and patient's skin in cool. Hand-off to Grant.
--- NOTE | 2022-05-02 13:25 | CRLHL7_ITS ---
For Patients: As a result of the Century Cures Act, medical imaging exams and procedure reports are released immediately into your electronic medical record. You may view this report before your referring provider. If you have questions, please contact your health care provider. INDICATION: Preop. TECHNIQUE: Chest 1 view. COMPARISON: Chest radiograph 04/06/2022. FINDINGS: No focal consolidation, pleural effusion, or pneumothorax. Minimal left basilar atelectasis. Biapical pleural scarring. Normal heart size and pulmonary vascularity. There is new fullness in the right hilum. Enteric tube with tip projected over the stomach. Dilated bowel loops in the upper abdomen compatible with obstruction. Surgical clips right upper quadrant. Thoracolumbar curve. IMPRESSION: 1. No acute cardiopulmonary findings. 2. New fullness in the right hilum. 3. Dilated bowel loops in the upper abdomen compatible with obstruction. Dictated by Liss Pitt MD @ 05/02/2022 2:16:43 PM (Electronically Signed)
[2022-05-02 13:52] LABS: Appearance Urine Clear (Clear); Bilirubin Urine 1+ (Negative); Blood Urine Negative (Negative); Color Urine Yellow (Yellow); Glucose Urine Negative (Negative); Ketones Urine Negative (Negative); Leukocyte Esterase Urine Negative (Negative); Nitrite Urine Negative (Negative); Protein Urine 1+ (Negative); Specific Gravity Urine >= 1.030 (1.000-1.030); Urobilinogen Urine 0.2 (0.2-1.0); pH Urine 5.5 (5.0-8.5)
[2022-05-02 14:16] LABS: Bacteria Urine Moderate; RBC Urine 0-2 (0-2); WBC Urine 0-2 (0-5)
[2022-05-02 14:20] LABS: Bacteria Urine Moderate; RBC Urine 0-2 (0-2); WBC Urine 0-2 (0-5)
[2022-05-02] MEDS: SODIUM BICARBONATE 50 MEQ/50ML SYRINGE IVP (14:44)
[2022-05-02] MEDS: ERTAPENEM 1 GM in 0.9 % SODIUM CHLORIDE Mini-bag 100 ML IVPB (14:44)
[2022-05-02] MEDS: LACTATED RINGERS 1000 ML 500 ML IV (14:56)
[2022-05-02 14:59] LABS: HCO3 VBG 23 mmol/L (21-28); PCO2 VBG 47 mmHG (40-50); PO2 VBG 42.6 mmHG (25-47); pH VBG 7.296 (7.32-7.43)
[2022-05-02 15:16] LABS: Albumin* 3.5 g/dL (3.3-5.0); Chloride* 99 mmol/L (96-114); Sodium* 132 mmol/L (135-149)
[2022-05-02 15:17] LABS: Hematocrit 39.1 % (33.0-51.0); Hemoglobin* 12.6 gm/dL (12.0-16.0); Mean Corpuscular HGB Conc 32 gm/dL (32-36); Mean Corpuscular Hemoglobin 31 pg (26-34); Mean Corpuscular Volume 96 fL (80-100); Platelet Count* 307 K/uL (140-440); Potassium* 3.5 mmol/L (3.6-5.1); Red Blood Count 4.07 m/uL (4.00-5.20)
[2022-05-02 15:19] LABS: Alanine Aminotransferase* 29 U/L (4-35); Alkaline Phosphatase* 279 U/L (40-150); Aspartate Amino Transferase* 39 U/L (12-35); Bilirubin Total* 0.8 mg/dL (0.1-1.5); Blood Urea Nitrogen* 24 mg/dL (7-30); Calcium* 8.8 mg/dL (8.4-10.6); Carbon Dioxide* 21 mmol/L (20-32); Creatinine* 1.8 mg/dL (0.5-1.5); Estimated Glomerular Filt Rate 27.44; Glucose* 105 mg/dL (60-115); Total Protein* 5.4 g/dL (6.0-8.3)
[2022-05-02 15:20] LABS: Slide Review Reflex No
[2022-05-02] MEDS: HYDROmorphone 0.5 mg/0.5 ml inj IVP ×2 (16:20→16:41)
[2022-05-02] MEDS: HYDROCORTISONE SOD SUCCINATE 50 MG/ML inj 100 MG IVP (16:29)
--- NOTE | 2022-05-02 17:22 | W.PM.CROSSCO ---
Subjective Subjective Time Seen by Provider: 15:00 Date Seen: 05/02/22 Principal diagnosis: small-bowel obstruction with shock Interval history: 86-year-old female admitted to the hospital earlier today with abdominal pain. imaging shows diffuse dilated small bowel She is admitted to the CCU due to critical illness. This afternoon she became hypotensive. At the time I saw her she had received 1500 mL of normal saline and 500 mL of lactated Ringer's. she also received an amp of bicarb. She has been given ertapenem 1 g IV. Patient received yet another L of lactated Ringer's and 100 mg of hydrocortisone with a history of adrenal insufficiency and chronic cortisol treatment. She continued to remain hypotensive so she was started on norepinephrine. Blood pressures improved with a map in the low to mid 60s. Attempts to start a central line here have been unsuccessful. Dr. Yarbrough in the MICU at [facility] has accepted the patient. Transport by air due to ongoing instability. Assessment and Plan Assessment and plan (1) Sepsis: Status: Acute (2) Small bowel obstruction: Status: Acute (3) LUPE (acute kidney injury): Status: Acute (4) Adrenal insufficiency: Status: Acute Plan transfer to [facility]
--- NOTE | 2022-05-02 17:30 | CRLHL7_ITS ---
For Patients: As a result of the Century Cures Act, medical imaging exams and procedure reports are released immediately into your electronic medical record. You may view this report before your referring provider. If you have questions, please contact your health care provider. INDICATION: Failed central line attempts. TECHNIQUE: Chest 1 views. COMPARISON: Chest x-ray from 05/02/2022 01:48 p.m. FINDINGS: Lines and tubes: NG-tube has its tip in the fundus. Lungs: Mild interstitial prominence. Hazy right lower lobe opacity. Pleura: No pleural effusion or pneumothorax. Heart and Mediastinum: The cardiomediastinal silhouette is normal. The vessels are unremarkable. Bones: Unremarkable. IMPRESSION: Hazy right lower lobe opacity could be developing pneumonia or atelectasis. Dictated by Chun Gibson MD @ 05/02/2022 7:25:03 PM (Electronically Signed)
--- NOTE | 2022-05-02 17:36 | P.GSCN_ITS ---
History of Present Illness Consult details Consult date: 05/02/22 Narrative: 86-year-old female was admitted to the hospital with abdominal pain and I was asked by Dr. Reaves to see him in consultation. Patient states that she experienced abdominal pain yesterday. The pain started all of a sudden and was described as right lower quadrant. The pain was getting progressively worse and patient was brought to the emergency room in the evening. She had 4 episodes of vomiting. In the emergency room patient was found to have an elevated WBC of 12.6. Abdominal CT was obtained that showed dilated loops of bowel with no clear transition point although the transition point was thought to be in the right lower quadrant. Patient also was found to have elevated AST and ALT. Her lactate on admission was 1.2 but increased to 4.5. Patient was admitted to the hospital and an NG tube was placed. initially, the family of the patient who are her power of outpatient therapist did not wish to proceed with any invasive intervention such as surgery. However later on the changed her mind and surgery was consulted. Patient received fluids however was hypotensive and tachycardic in the last several hours. She received fluid boluses and Levophed was started. Review of Systems Narrative: General: no fevers HENT: no problems swallowing CV: no shortness of breath Resp: no cough GI: See above Skin: patient has a small sacral ulcer. Musculoskeletal: Patient was recently hospitalized with pelvic fractures. [facility] Medical History Adrenal insufficiency Anxiety Asthma Atherosclerotic cardiovascular disease Cataract Chronic kidney disease (CKD) stage G3a/A1, moderately decreased glomerular filtration rate (GFR) between 45-59 mL/min/1.73 square meter and albuminuria creatinine ratio less than 30 mg/g Constipation Convulsions Diabetes mellitus type 1 Dorsalgia GERD (gastroesophageal reflux disease) Hyperlipidemia Hypothyroidism Osteoarthritis Pelvic fracture Postmenopausal atrophic vaginitis Pressure ulcer of sacral region, unstageable Primary adrenocortical insufficiency Primary hypertension Type 1 diabetes mellitus Unspecified dementia without behavioral disturbance Vertebral fracture Surgical History (Updated 05/02/22 @ 17:41 by Evita Mccracken MD) H/O angioplasty H/O mastoidectomy No significant past surgical history S/P appendectomy S/P laparoscopic cholecystectomy Social History (Updated 05/02/22 @ 17:42 by Evita Mccracken MD) Narrative: Patient lives in [place] [facility]. Highest level of school completed/degree received: don't know Smoking Status: Never smoker Do you use any of these nicotine containing products: None Second hand tobacco smoke exposure: No How often do you have a drink containing alcohol: never AUDIT-C Alcohol total score: 0 Non-prescribed substance use: denies use Caffeine: No service: No Meds Home Medications and Allergies Home Medications Medication Instructions Recorded Confirmed Type acetaminophen 325 mg tablet 650 mg PO QID PRN 05/02/22 05/02/22 History aspirin 81 mg tablet,delayed 81 mg PO DAILY 05/02/22 05/02/22 History release atorvastatin 40 mg tablet 40 mg PO DAILY 05/02/22 05/02/22 History calcitonin (salmon) 200 1 spray INTRANASAL (ALT) DAILY 05/02/22 05/02/22 History unit/actuation nasal spray cholecalciferol (vitamin D3) 50 50 mcg PO DAILY 05/02/22 05/02/22 History mcg (2,000 unit) tablet clopidogrel 75 mg tablet 75 mg PO DAILY 05/02/22 05/02/22 History coenzyme Q10 100 mg capsule 100 mg PO DAILY 05/02/22 05/02/22 History cadence.stocking,knee,reg,smal 05/02/22 05/02/22 History (T.E.D. Anti-Embolism Stocking) estradiol 0.01% (0.1 mg/gram) 1 appful VAGINAL .FRIDAY,Friday05/02/22 05/02/22 History vaginal cream famotidine 20 mg tablet 20 mg PO Q12H 05/02/22 05/02/22 History glucose 4 gram chewable tablet 4 g PO PRN PRN 05/02/22 05/02/22 History (TRUEplus Glucose) hydrocortisone 2.5 % topical cream 1 applic TOPICAL BID PRN 05/02/22 05/02/22 History with perineal applicator hydrocortisone 5 mg tablet 5 - 10 mg PO BID 05/02/22 05/02/22 History insulin glargine 100 unit/mL (3 11 unit SUBCUT DAILY 05/02/22 05/02/22 History mL) subcutaneous pen (Lantus Solostar U-100 Insulin) insulin lispro 100 unit/mL 2 - 5 unit SUBCUT TIDWM 05/02/22 05/02/22 History subcutaneous pen (Humalog KwikPen (U-100) Insulin) lactobacillus combination no.4 3 3,000 mmu cells PO DAILY 05/02/22 05/02/22 History billion cell capsule (Probiotic) levothyroxine 75 mcg tablet 75 mcg PO DAILY 05/02/22 05/02/22 History lisinopril 5 mg tablet 5 mg PO DAILY 05/02/22 05/02/22 History loratadine 10 mg tablet 10 mg PO DAILY 05/02/22 05/02/22 History magnesium oxide 250 mg PO DAILY 05/02/22 05/02/22 History morphine 15 mg tablet,extended 15 mg PO TID 05/02/22 05/02/22 History release multivit-iron 18 mg-folic acid 400 1 tab PO DAILY 05/02/22 05/02/22 History mcg-calcium 500 mg-minerals tablet (Women's One Daily) nitroglycerin 0.4 mg sublingual 0.4 mg SUBLINGUAL Q5M 05/02/22 05/02/22 History tablet (Nitrostat) nystatin 100,000 unit/gram topical 1 applic TOPICAL BID PRN 05/02/22 05/02/22 History powder olopatadine 0.2 % eye drops 1 drp OPHTHALMIC (EYE) DAILY 05/02/22 05/02/22 History oxycodone 5 mg tablet 5 mg PO Q6H PRN 05/02/22 05/02/22 History pen needle,diabetic dual safty 30 05/02/22 05/02/22 History gauge x 3/16 (BD AutoShield Duo Pen Needle) polyethylene glycol 3350 17 17 g PO BID 05/02/22 05/02/22 History gram/dose oral powder sennosides 8.6 mg-docusate sodium 1 tab-cap PO BID PRN 05/02/22 05/02/22 History 50 mg tablet (Senexon-S) sodium chloride 0.65 % nasal spray 1 spray INTRANASAL BID 05/02/22 05/02/22 History aerosol (Deep Sea Nasal) vitamin B complex (Vitamins B 1 cap PO DAILY 05/02/22 05/02/22 History Complex capsule) Allergies Allergy/AdvReac Type Severity Reaction Status Date / Time adhesive tape Allergy Mild Rash Verified 05/02/22 01:16 diclofenac Allergy Unknown Verified 05/02/22 01:16 aspartame Allergy Unverified 05/02/22 01:16 beclomethasone Allergy Unverified 05/02/22 01:16 bisacodyl Allergy Unverified 05/02/22 01:16 dexamethasone Allergy Unverified 05/02/22 01:16 doxycycline Allergy Unverified 05/02/22 01:16 erythromycin base Allergy Unverified 05/02/22 01:16 gabapentin Allergy Unverified 05/02/22 01:16 hydrochlorothiazide Allergy Unverified 05/02/22 01:16 lactase [From Dairy Aid] Allergy Unverified 05/02/22 01:16 meclizine Allergy Unverified 05/02/22 01:16 metformin Allergy Unverified 05/02/22 01:16 metoclopramide Allergy Unverified 05/02/22 01:16 nabumetone [From Relafen] Allergy Unverified 05/02/22 01:16 propranolol Allergy Unverified 05/02/22 01:16 raloxifene Allergy Unverified 05/02/22 01:16 ramipril Allergy Unverified 05/02/22 01:16 tobramycin Allergy Unverified 05/02/22 01:16 venlafaxine Allergy Unverified 05/02/22 01:16 Exam Narrative: Exam Narrative: General appearance: Alert, cooperative, and in no distress Pulmonary: Chest symmetric, lungs clear bilaterally Cardiovascular Heart: Regular rate and rhythm, S1, S2, no murmurs/rubs/gallops Gastrointestinal Abdominal: Distended, soft, tender to palpation throughout the abdomen with the most tenderness in the right lower quadrant. Tender to percussion in bilateral lower quadrants. Skin: There is a dime-sized sacral decubitus ulcer that was covered by Mepilex. Psychiatric: Alert, cooperative, normal affect. Const: Vital Signs, click to edit/add: Vital Signs - 24 hr 05/02/22 01:00 05/02/22 03:40 05/02/22 04:55 Temperature 98.0 F 98.0 F Pulse Rate 76 Pulse Rate [Apical ] Pulse Rate [Right Pulse Oximeter] 89 75 Respiratory Rate 18 16 16 Blood Pressure 127/89 Blood Pressure [Le ft Upper Arm] 127/91 H 128/84 Blood Pressure [Ri ght Arm] Pulse Oximetry 97 97 05/02/22 05:25 06/30/22 06:01 05/02/22 08:44 Temperature 97 F L 97.8 F Pulse Rate Pulse Rate [Apical ] 75 102 H Pulse Rate [Right Pulse Oximeter] Respiratory Rate 16 22 24 Blood Pressure Blood Pressure [Le ft Upper Arm] Blood Pressure [Ri ght Arm] 111/69 93/50 L Pulse Oximetry 92 92 95 05/02/22 08:45 05/02/22 09:11 05/02/22 09:37 Temperature Pulse Rate Pulse Rate [Apical ] 105 H 93 102 H Pulse Rate [Right Pulse Oximeter] Respiratory Rate 24 Blood Pressure Blood Pressure [Le ft Upper Arm] Blood Pressure [Ri ght Arm] 89/52 L 70/42 L Pulse Oximetry 05/02/22 09:45 05/02/22 11:42 05/02/22 12:07 Temperature 98.7 F 98.7 F Pulse Rate Pulse Rate [Apical ] 100 102 H 102 H Pulse Rate [Right Pulse Oximeter] Respiratory Rate 24 24 Blood Pressure Blood Pressure [Le ft Upper Arm] Blood Pressure [Ri ght Arm] 100/49 L 80/70 L 80/70 L Pulse Oximetry 94 94 05/02/22 12:56 05/02/22 13:00 05/02/22 13:15 Temperature 98.4 F 98.4 F Pulse Rate Pulse Rate [Apical ] 121 H 126 H 132 H Pulse Rate [Right Pulse Oximeter] Respiratory Rate 24 24 26 H Blood Pressure Blood Pressure [Le ft Upper Arm] Blood Pressure [Ri ght Arm] 84/47 L 91/49 L 70/50 L Pulse Oximetry 96 96 95 05/02/22 13:20 05/02/22 13:36 05/02/22 13:46 Temperature Pulse Rate Pulse Rate [Apical ] 130 H 136 H 129 H Pulse Rate [Right Pulse Oximeter] Respiratory Rate 22 24 22 Blood Pressure Blood Pressure [Le ft Upper Arm] Blood Pressure [Ri ght Arm] 80/46 L 75/47 L 82/48 L Pulse Oximetry 95 96 96 05/02/22 14:24 05/02/22 14:41 05/02/22 15:00 Temperature 98.4 F 98.0 F Pulse Rate Pulse Rate [Apical ] 131 H 129 H 131 H Pulse Rate [Right Pulse Oximeter] Respiratory Rate 22 22 22 Blood Pressure Blood Pressure [Le ft Upper Arm] Blood Pressure [Ri ght Arm] 89/45 L 113/49 L 90/48 L Pulse Oximetry 96 90 95 05/02/22 15:15 05/02/22 15:30 05/02/22 15:54 Temperature 98.4 F Pulse Rate Pulse Rate [Apical ] 137 H 136 H 132 H Pulse Rate [Right Pulse Oximeter] Respiratory Rate 24 22 22 Blood Pressure Blood Pressure [Le ft Upper Arm] Blood Pressure [Ri ght Arm] 75/40 L 71/41 L 91/46 L Pulse Oximetry 95 93 95 05/02/22 16:01 05/02/22 16:02 Temperature Pulse Rate 129 H Pulse Rate [Apical ] 133 H Pulse Rate [Right Pulse Oximeter] Respiratory Rate 24 Blood Pressure Blood Pressure [Le ft Upper Arm] Blood Pressure [Ri ght Arm] 93/47 L Pulse Oximetry 98 Results Labs Labs: Abnormal lab results 05/02/22 05/02/22 05/02/22 Range/Units 01:55 01:55 09:36 WBC 12.66 H (4.50-11.00) K/uL Lymph % (Auto) 16.7 L 19.3 L (20-44) % Neut # (Auto) 9.00 H (1.7-7.0) K/uL Benson # (Auto) 1.20 H (0.00-0.90) K/UL VBG pH (7.32-7.43) VBG pCO2 (40-50) mmHG Sodium 132 L (135-149) mmol/L Potassium (3.6-5.1) mmol/L Creatinine (0.5-1.5) mg/dL Glucose 287 H (60-115) mg/dL Lactate (0.5-1.9) mmol/L AST (12-35) U/L ALT (4-35) U/L Alkaline Phosphatase (40-150) U/L Troponin I (0.01-0.04) ng/mL NT-Pro-B Natriuret Pep (0-450) PG/mL Total Protein (6.0-8.3) g/dL Urine Protein (Negative) Urine Bilirubin (Negative) Urine Bacteria (None) 05/02/22 05/02/22 05/02/22 Range/Units 09:36 09:36 13:13 WBC (4.50-11.00) K/uL Lymph % (Auto) (20-44) % Neut # (Auto) (1.7-7.0) K/uL Benson # (Auto) (0.00-0.90) K/UL VBG pH 7.285 L (7.32-7.43) VBG pCO2 54 H (40-50) mmHG Sodium 133 L (135-149) mmol/L Potassium (3.6-5.1) mmol/L Creatinine (0.5-1.5) mg/dL Glucose 223 H (60-115) mg/dL Lactate 4.5 H* (0.5-1.9) mmol/L AST 42 H (12-35) U/L ALT 36 H (4-35) U/L Alkaline Phosphatase 373 H (40-150) U/L Troponin I < 0.01 L (0.01-0.04) ng/mL NT-Pro-B Natriuret Pep 487 H (0-450) PG/mL Total Protein (6.0-8.3) g/dL Urine Protein 1+ A (Negative) Urine Bilirubin 1+ A (Negative) Urine Bacteria Moderate A (None) 05/02/22 05/02/22 05/02/22 Range/Units 13:13 14:45 14:45 WBC 4.20 L (4.50-11.00) K/uL Lymph % (Auto) (20-44) % Neut # (Auto) (1.7-7.0) K/uL Benson # (Auto) (0.00-0.90) K/UL VBG pH (7.32-7.43) VBG pCO2 (40-50) mmHG Sodium 132 L (135-149) mmol/L Potassium 3.5 L (3.6-5.1) mmol/L Creatinine 1.8 H (0.5-1.5) mg/dL Glucose (60-115) mg/dL Lactate (0.5-1.9) mmol/L AST 39 H (12-35) U/L ALT (4-35) U/L Alkaline Phosphatase 279 H (40-150) U/L Troponin I (0.01-0.04) ng/mL NT-Pro-B Natriuret Pep (0-450) PG/mL Total Protein 5.4 L (6.0-8.3) g/dL Urine Protein (Negative) Urine Bilirubin (Negative) Urine Bacteria Moderate A (None) 05/02/22 Range/Units 14:45 WBC (4.50-11.00) K/uL Lymph % (Auto) (20-44) % Neut # (Auto) (1.7-7.0) K/uL Benson # (Auto) (0.00-0.90) K/UL VBG pH 7.296 L (7.32-7.43) VBG pCO2 (40-50) mmHG Sodium (135-149) mmol/L Potassium (3.6-5.1) mmol/L Creatinine (0.5-1.5) mg/dL Glucose (60-115) mg/dL Lactate (0.5-1.9) mmol/L AST (12-35) U/L ALT (4-35) U/L Alkaline Phosphatase (40-150) U/L Troponin I (0.01-0.04) ng/mL NT-Pro-B Natriuret Pep (0-450) PG/mL Total Protein (6.0-8.3) g/dL Urine Protein (Negative) Urine Bilirubin (Negative) Urine Bacteria (None) Diabetes panel 05/02/22 05/02/22 05/02/22 Range/Units 01:55 09:36 14:45 Sodium 132 L 133 L 132 L (135-149) mmol/L Potassium 4.1 3.6 3.5 L (3.6-5.1) mmol/L Chloride 97 96 99 (96-114) mmol/L Carbon Dioxide 26 24 21 (20-32) mmol/L BUN 18 22 24 (7-30) mg/dL Creatinine 0.8 1.4 1.8 H (0.5-1.5) mg/dL Glucose 287 H 223 H 105 (60-115) mg/dL Calcium 10.0 10.0 8.8 (8.4-10.6) mg/dL AST 42 H 39 H (12-35) U/L ALT 36 H 29 (4-35) U/L Alkaline Phosphatase 373 H 279 H (40-150) U/L Total Protein 6.9 5.4 L (6.0-8.3) g/dL Albumin 4.6 3.5 (3.3-5.0) g/dL Calcium panel 05/02/22 05/02/22 05/02/22 Range/Units 01:55 09:36 14:45 Calcium 10.0 10.0 8.8 (8.4-10.6) mg/dL Albumin 4.6 3.5 (3.3-5.0) g/dL Pituitary panel 05/02/22 05/02/22 05/02/22 Range/Units 01:55 09:36 14:45 Sodium 132 L 133 L 132 L (135-149) mmol/L Potassium 4.1 3.6 3.5 L (3.6-5.1) mmol/L Chloride 97 96 99 (96-114) mmol/L Carbon Dioxide 26 24 21 (20-32) mmol/L BUN 18 22 24 (7-30) mg/dL Creatinine 0.8 1.4 1.8 H (0.5-1.5) mg/dL Glucose 287 H 223 H 105 (60-115) mg/dL Calcium 10.0 10.0 8.8 (8.4-10.6) mg/dL Adrenal panel 05/02/22 05/02/22 05/02/22 Range/Units 01:55 09:36 14:45 Sodium 132 L 133 L 132 L (135-149) mmol/L Potassium 4.1 3.6 3.5 L (3.6-5.1) mmol/L Chloride 97 96 99 (96-114) mmol/L Carbon Dioxide 26 24 21 (20-32) mmol/L BUN 18 22 24 (7-30) mg/dL Creatinine 0.8 1.4 1.8 H (0.5-1.5) mg/dL Glucose 287 H 223 H 105 (60-115) mg/dL Calcium 10.0 10.0 8.8 (8.4-10.6) mg/dL Total Bilirubin 0.9 0.8 (0.1-1.5) mg/dL AST 42 H 39 H (12-35) U/L ALT 36 H 29 (4-35) U/L Alkaline Phosphatase 373 H 279 H (40-150) U/L Total Protein 6.9 5.4 L (6.0-8.3) g/dL Albumin 4.6 3.5 (3.3-5.0) g/dL All other labs normal. Assessment and Plan Assessment and plan (1) Small bowel obstruction: Status: Acute Assessment and Plan: 86-year-old female with multiple comorbidities and recent hospitalization for pelvic fractures treated non operatively presents to the hospital with small- bowel obstruction. Patient's abdomen is distended and on abdominal CT she has dilated loops of bowel. Patient is very thin and it is quite easy to see her dilated loops of bowel through her abdominal wall. We repeated her abdominal CT with contrast and it is not significantly changed. She continues to have dilated loops of bowel with possible transition point in the right lower quadrant although this was not clear. There was no evidence of free air. With pain medication patient's pain is now better controlled but she continues to be hypertensive with systolics in the 70s and 80s. She is on low-dose of Levophed. This patient has not made significant amount of urine since admission. discussions were held with the hospitalist and this patient needs ICU care and should be transferred to a tertiary center for further treatment and possible surgical intervention if needed. (2) LUPE (acute kidney injury): Status: Acute (3) Sepsis: Status: Acute (4) Type 1 diabetes mellitus: Status: Acute General Surgery Procedures Central Line Placement Right IJ: Time out performed: Yes Patient placed on monitor/pulse ox: Yes MD prep: mask, gown and gloves Central line prep: Chlorhexidine scrub and sterile drapes applied Local anesthesia used: lidocaine 1% Central line lumen inserted: triple Image guidance used: US guidance Additional comments: After an informed consent was obtained, patient was positioned and the rightneck was prepped with Chloraprep. An Ultrasound was used to guide the line placement. A right vein was identified and 1% Lidocaine without Epinephrine was injected into the skin just above the site of the line placement. A large bore needle was then inserted into the vein under ultrasound guidance and dark venous blood was observed in the syringe. A guide wire was attempted to be placed into the right internal jugular vein however multiple attempts were not successful. Despite of the patient being in Trendelenburg position, the vein was easily compressible and patient appeared to be dry. Steri-Strips was placed over the incision site. I then attempted to place the central line in the left internal jugular vein. The patient's left neck was again prepped and draped in the usual sterile fashion. With ultrasound over the left internal jugular vein, I was able to identify the vein. The vein was overlying the left carotid artery. With a large-bore needle again I attempted to place the needle into the vein and was successful however I was not able to thread the wire. Two additional attempts of inserting the needle and the wire into the left internal jugular vein were made but were not successful. At this time the procedure was terminated. Patient tolerated this procedure very well. CXR was obtained after the line placement. EBL: Minimal
[2022-05-02 17:53] LABS: Slide Review Reflex No
--- NOTE | 2022-05-02 20:08 | PC.NURSE ---
discharge. Pt left [facility] @ 1850 care was taken over by [facility] she is going to [facility] took over care of Pt @ 1215. BP low and No IV access after several attempts IV access was obtained and IV fluids started. PT was move to CCu as a unit pt. NG was to LIS 65 cm a left nare. Tele was started Sinus tachycardia wit hHR 130-140 Patient is pleasant NG has 1200 out within 1 hour of taking over care and later another 800 out. I was on 4th Liter of Fluids when Air arrived. 1 L NS and 3 L of LR. all fluids given per direction of MD bauer. norepinephrine drip was started @ 0.1 and was increased to 0.5 per MD. Pt did better with BP when fluids where wide open and BP would drop when fluids where decreases. CT was done, [place] was started and 10 cc out and no other urine out pt. Patient abdominal pain increased and 4 MD and 0.5 IV Dilaudid where given. no nausea. Patient's bowel tones are absent, abdomen is very distended and firm. Teds and SCds on. 2nd SL was started. MD tired central line 2 times with no access achieved. 3 MD where in to see pt several times. son was updated. Pt asked to be transferred. all meds given. nurse was in room almost the sole time from taking over care to discharge VS every 15 minutes.
== END 2022-05-02 20:54 | disposition short-term general hospital (02) | DRG 720 ==
LOC: ED 03:26 → MEDSURG 04:02
PROVIDERS: Family Medicine; Admitting Provider Family Medicine; Emergency Provider Family Medicine; PCP Family Medicine; Visit Provider Family Medicine
DX: A41.9 Sepsis, unspecified organism (principal); K56.50 Intestinal adhesions [bands], unspecified as to partial versus complete obstruction; K55.9 Vascular disorder of intestine, unspecified; R57.9 Shock, unspecified; N17.9 Acute kidney failure, unspecified; E10.9 Type 1 diabetes mellitus without complications; E27.40 Unspecified adrenocortical insufficiency; F03.90 Unspecified dementia, unspecified severity, without behavioral disturbance, psychotic disturbance, mood disturbance, and anxiety; I12.9 Hypertensive chronic kidney disease with stage 1 through stage 4 chronic kidney disease, or unspecified chronic kidney disease; E10.22 Type 1 diabetes mellitus with diabetic chronic kidney disease; E03.9 Hypothyroidism, unspecified; F41.9 Anxiety disorder, unspecified; E46 Unspecified protein-calorie malnutrition; I25.10 Atherosclerotic heart disease of native coronary artery without angina pectoris; G89.29 Other chronic pain; N18.31 Chronic kidney disease, stage 3a; Z79.4 Long term (current) use of insulin; L89.150 Pressure ulcer of sacral region, unstageable; K21.9 Gastro-esophageal reflux disease without esophagitis; E27.1 Primary adrenocortical insufficiency; R56.9 Unspecified convulsions; N95.2 Postmenopausal atrophic vaginitis; S32.512D Fracture of superior rim of left pubis, subsequent encounter for fracture with routine healing; S32.511D Fracture of superior rim of right pubis, subsequent encounter for fracture with routine healing; M48.55XD Collapsed vertebra, not elsewhere classified, thoracolumbar region, subsequent encounter for fracture with routine healing; E78.5 Hyperlipidemia, unspecified
CPT/HCPCS: 36415; 71045; 74018; 74019; 74176; 74177; 80048; 80053; 81001; 81015; 82803; 82977; 83605; 83735; 83880; 83986; 84484; 85025; 85027; 86140; 87040; 87086; 87502; 87634; 87635; 94761; 99284; 99285; J0780; J1170; J1335; J1720; J2060; J2270; J2405; J7030; J7050; J7120; Q9967

== ENCOUNTER 2022-05-27 16:23 | Outpatient (REF) | payer BC, SELFPAY ==
[2022-05-27 16:37] LABS: Hemoglobin* 12.9 gm/dL (12.0-16.0); Mean Corpuscular HGB Conc 33 gm/dL (32-36); Mean Corpuscular Hemoglobin 30 pg (26-34); Mean Corpuscular Volume 92 fL (80-100); Platelet Count* 459 K/uL (140-440); Red Blood Count 4.24 m/uL (4.00-5.20); White Blood Count* 11.01 K/uL (4.50-11.00)
[2022-05-27 16:41] LABS: Slide Review Reflex No
== END 2022-05-27 16:24 | disposition home or self-care (01) ==
LOC: NPINS 16:23
PROVIDERS: PCP Family Medicine; Visit Provider Nurse Practitioner Gerontology
DX: E11.9 Type 2 diabetes mellitus without complications (principal); E27.1 Primary adrenocortical insufficiency
CPT/HCPCS: 36415; 51798; 71045; 73560; 74177; 80048; 80053; 80076; 81001; 82803; 83605; 83735; 83880; 83930; 83935; 84132; 84295; 84443; 84484; 85018; 85025; 85027; 85610; 85651; 86140; 86850; 86900; 86901; 86922; 87040; 87086; 87186; 87635; 93005; 94761; 97110; 97116; 97162; 97165; 97530; 97535; 99284; 99285; A9153; A9270; J0610; J0696; J0744; J1644; J1720; J1940; J2543; J3370; J7030; J7050; J7120; Q9967

== ENCOUNTER 2022-05-27 17:38 | Outpatient (CLI) | payer BC, SELFPAY | END 2022-05-27 17:39 | disposition home or self-care (01) | LOC: AMB 06-16 21:41 | PROVIDERS: PCP Family Medicine; Visit Provider Family Medicine | DX: R10.9 Unspecified abdominal pain (principal) | CPT/HCPCS: A0425; A0427 ==

== ENCOUNTER 2022-05-27 18:19 | Inpatient (IN) | payer BC, SELFPAY ==
[2022-05-27] VITALS (22 sets, daily range): BP systolic 64–122; BP diastolic 35–76; PULSE 104–121; RESP 8–26; TEMP 35.9; O2SAT 92–99
[2022-05-27] MEDS: 0.9 % SODIUM CHLORIDE 500 ML 500 ML IV (18:45)
[2022-05-27 19:00] LABS: Basophils Percent Auto 0.6 % (0.0-3.0); Eosinophils Percent Auto 2.1 % (0.0-7.0); Hemoglobin* 13.6 gm/dL (12.0-16.0); Immature Granulocytes Abs Auto 0.03 K/uL (0.00-0.30); Lymphocytes Percent Auto 20.5 % (20-44); Mean Corpuscular HGB Conc 33 gm/dL (32-36); Mean Corpuscular Hemoglobin 31 pg (26-34); Mean Corpuscular Volume 92 fL (80-100); Monocytes Percent Auto 7.6 % (0.0-11.0); Neutrophils Percent Auto 68.9 % (42.0-72.0); Platelet Count* 474 K/uL (140-440); RDW Coefficient of Variation % 16.3 % (11.5-15.5); Red Blood Count 4.45 m/uL (4.00-5.20); White Blood Count* 11.05 K/uL (4.50-11.00)
--- NOTE | 2022-05-27 19:02 | ED.ABDPAIN ---
HPI - Abdominal Pain General Time Seen by Provider: 18:45 Date Seen: 05/27/22 Chief Complaint: Abdominal Pain Stated Complaint: Abdominal Pain Time Seen by Provider: 05/27/22 18:28 Source: patient and family (Called daughter Gianna who is POA of healthcare) Mode of arrival: EMS Limitations: other (Patient having pain, not distractible from this) History of Present Illness HPI narrative: Patient is a 86-year-old female brought in from [facility] with abdominal pain and nausea. She has had diminished output from her ileostomy, no bowel movement for 1-2 days. EMS did give her 4 mg IM Zofran EN route as they could not get an IV. Blood sugar was found to be 113. I did call her daughter quite quickly after arrival as this patient is hypotensive in the 60s on arrival for blood pressure. She is talking at this time but in obvious pain. Her daughter states yesterday she was supposedly up walking and talking as her son was there, maybe thinking that she was dehydrated. Torey, patient's son, reported to his sister that he thought she was quite dehydrated yesterday as her ribs were showing and she was complaining of some abdominal discomfort. 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 She returned back to the [facility] on May 13. Friday of last week at a care conference everything was seemingly okay. elicited complaint: abdominal pain Onset (ago): day(s) Related Data Patient : No Home Medications Medication Instructions Recorded Confirmed aspirin 81 mg tablet,delayed 81 mg PO DAILY 05/02/22 05/28/22 release atorvastatin 40 mg tablet 40 mg PO DAILY 05/02/22 05/28/22 calcitonin (salmon) 200 1 spray intranasal (ALT) DAILY 05/02/22 05/28/22 unit/actuation nasal spray cholecalciferol (vitamin D3) 50 4,000 unit PO DAILY 05/02/22 05/28/22 mcg (2,000 unit) tablet coenzyme Q10 100 mg capsule 100 mg PO DAILY 05/02/22 05/28/22 estradiol 0.01% (0.1 mg/gram) 1 appful vaginal .FRIDAY,Friday05/02/22 05/28/22 vaginal cream famotidine 20 mg tablet 20 mg PO BID 05/02/22 05/28/22 hydrocortisone 5 mg tablet 5 - 10 mg PO BID 05/02/22 05/28/22 insulin glargine 100 unit/mL (3 13 unit subcut DAILY 05/02/22 05/28/22 mL) subcutaneous pen (Lantus Solostar U-100 Insulin) insulin lispro 100 unit/mL 2 - 5 unit subcut TIDWM 05/02/22 05/28/22 subcutaneous pen (Humalog KwikPen (U-100) Insulin) lactobacillus combination no.4 3 3,000 mmu cells PO DAILY 05/02/22 05/28/22 billion cell capsule (Probiotic) levothyroxine 75 mcg tablet 75 mcg PO DAILY 05/02/22 05/28/22 magnesium oxide 250 mg PO DAILY 05/02/22 05/28/22 morphine 15 mg tablet,extended 15 mg PO TID 05/02/22 05/28/22 release multivit-iron 18 mg-folic acid 400 1 tab PO DAILY 05/02/22 05/28/22 mcg-calcium 500 mg-minerals tablet (Women's One Daily) olopatadine 0.2 % eye drops 1 drp ophthalmic (eye) DAILY 05/02/22 05/28/22 oxycodone 5 mg tablet 5 mg PO Q6H PRN 05/02/22 05/28/22 polyethylene glycol 3350 17 17 g PO DAILY 05/02/22 05/28/22 gram/dose oral powder vitamin B complex (Vitamins B 1 cap PO DAILY 05/02/22 05/28/22 Complex capsule) acetaminophen 500 mg capsule 1,000 mg PO QID PRN 05/28/22 05/28/22 melatonin 3 mg tablet 6 mg PO HS 05/28/22 05/28/22 metoprolol tartrate 25 mg tablet 25 mg PO BID 05/28/22 05/28/22 morphine concentrate 100 mg/5 mL 5 - 20 mg PO Q1H PRN 05/28/22 05/28/22 (20 mg/mL) oral solution ondansetron HCl 4 mg tablet 4 mg PO Q6H PRN 05/28/22 05/28/22 simethicone 80 mg chewable tablet 80 mg PO BID PRN 05/28/22 05/28/22 Previous Rx's Medication Instructions Recorded ciprofloxacin HCl 250 mg tablet 250 mg PO 1000,2200 #14 tabs 05/31/22 loperamide 2 mg capsule 2 mg PO QID #60 caps 05/31/22 sodium bicarbonate 650 mg tablet 650 mg PO BIDWMEAL #60 tabs 05/31/22 Allergies Allergy/AdvReac Type Severity Reaction Status Date / Time adhesive tape Allergy Mild Rash Verified 05/28/22 07:25 diclofenac Allergy Unknown Verified 05/02/22 01:16 aspartame Allergy Unverified 05/02/22 01:16 beclomethasone Allergy Unverified 05/02/22 01:16 bisacodyl Allergy Unverified 05/02/22 01:16 dexamethasone Allergy Unverified 05/02/22 01:16 doxycycline Allergy Unverified 05/02/22 01:16 erythromycin base Allergy Unverified 05/02/22 01:16 gabapentin Allergy Unverified 05/02/22 01:16 hydrochlorothiazide Allergy Unverified 05/02/22 01:16 lactase [From Dairy Aid] Allergy Unverified 05/02/22 01:16 meclizine Allergy Unverified 05/02/22 01:16 metformin Allergy Unverified 05/02/22 01:16 metoclopramide Allergy Unverified 05/02/22 01:16 nabumetone [From Relafen] Allergy Unverified 05/02/22 01:16 propranolol Allergy Unverified 05/02/22 01:16 raloxifene Allergy Unverified 05/02/22 01:16 ramipril Allergy Unverified 05/02/22 01:16 tobramycin Allergy Unverified 05/02/22 01:16 venlafaxine Allergy Unverified 05/02/22 01:16 Review of Systems Narrative Patient not really responding to questioning but is alert, is quite uncomfortable when distracted with her abdominal pain of the history is obtained from her daughter but due to patient's current abdominal pain and status she is not giving us a meaningful review of systems. [facility] Medical History (Updated 06/05/22 @ 11:53 by HARIS May) Abnormal liver enzymes Adrenal insufficiency Anxiety Asthma Atherosclerotic cardiovascular disease Cataract Chronic kidney disease (CKD) stage G3a/A1, moderately decreased glomerular filtration rate (GFR) between 45-59 mL/min/1.73 square meter and albuminuria creatinine ratio less than 30 mg/g Constipation Convulsions Dementia Diabetes mellitus type 1 Dorsalgia GERD (gastroesophageal reflux disease) Health care directive on file High output ileostomy Hyperkalemia Hyperlipidemia Hyponatremia Hypothyroidism Osteoarthritis Pelvic fracture POLST (Physician Orders for Life-Sustaining Treatment) Postmenopausal atrophic vaginitis Pressure ulcer of sacral region, unstageable Primary adrenocortical insufficiency Primary hypertension Type 1 diabetes mellitus Unspecified dementia without behavioral disturbance Vertebral fracture Surgical History (Updated 06/04/22 @ 00:01 by ) H/O angioplasty H/O mastoidectomy No significant past surgical history S/P appendectomy S/P laparoscopic cholecystectomy S/P small bowel resection Social History (Updated 05/02/22 @ 17:42 by Evita Mccracken MD) Narrative: Patient lives in a care home. Highest level of school completed/degree received: don't know Smoking Status: Never smoker Do you use any of these nicotine containing products: None Second hand tobacco smoke exposure: No How often do you have a drink containing alcohol: never How often do you have six or more drinks on one occasion: Never AUDIT-C Alcohol total score: 0 Non-prescribed substance use: denies use Caffeine: No service: No Exam Const: Vital Signs, click to edit/add: Vital Signs - 24 hr 05/27/22 18:20 05/27/22 18:22 05/27/22 18:45 Temperature 96.6 F L Pulse Rate [Right Pulse Oximeter] 121 H 118 H 117 H Respiratory Rate 23 Blood Pressure [Ri ght Upper Arm] 67/43 L 64/35 L 81/49 L Pulse Oximetry 99 95 96 05/27/22 19:00 05/27/22 19:15 05/27/22 19:30 Temperature Pulse Rate [Right Pulse Oximeter] 115 H 112 H 112 H Respiratory Rate 25 H 23 19 Blood Pressure [Ri ght Upper Arm] 75/45 L 83/50 L 86/55 L Pulse Oximetry 96 05/27/22 19:45 05/27/22 20:00 05/27/22 20:38 Temperature Pulse Rate [Right Pulse Oximeter] 114 H 115 H Respiratory Rate 26 H 26 H Blood Pressure [Ri ght Upper Arm] 105/69 122/66 87/48 L Pulse Oximetry 92 05/27/22 20:45 05/27/22 20:50 05/27/22 21:00 Temperature Pulse Rate [Right Pulse Oximeter] 117 H 115 H 120 H Respiratory Rate 23 23 20 Blood Pressure [Ri ght Upper Arm] 86/54 L 96/55 L 91/56 L Pulse Oximetry 99 98 95 05/27/22 21:15 Temperature Pulse Rate [Right Pulse Oximeter] 112 H Respiratory Rate 20 Blood Pressure [Ri t Upper Arm] 104/60 Pulse Oximetry 93 Documenting provider has reviewed patient's vital signs: yes General appearance: cooperative, in distress severe, ill appearing and frail appearing Nutritional appearance: thin and underweight (Appears cachectic) HENMT: Common normals: normocephalic, head/scalp atraumatic, hearing grossly normal bilaterally, external ears normal and nasal mucous membranes and turbinates normal Head and scalp: normocephalic and atraumatic Nose: nasal mucous membranes and turbinates normal External ear: external ears normal Other: Very dry mucous membranes. Eye: Common normals: PERRL, EOMs intact bilaterally, conjunctivae normal and no scleral icterus Conjunctiva: conjunctiva(e) normal Pupil: PERRL Neck & C-Spine: Common normals: no lymphadenopathy, supple, no meningeal signs, no JVD and thyroid normal Thyroid: thyroid normal Resp: Common normals: normal respiratory effort, no retractions, no use of accessory muscles and clear to auscultation bilaterally Auscultation: clear to auscultation bilaterally Cardio: Common normals: no JVD, regular rate, regular rhythm, S1 normal heart sound, S2 normal heart sound, no gallops, no clicks and no murmurs Rate: regular rate Rhythm: regular rhythm Heart sounds: S1 normal and S2 normal GI: Other: Abdomen is cachectic appearing, sunken, she complains of tenderness wherever I palpate. She is curled up on her left side and I cannot get her to lie flat. She has a ileostomy in the right lower quadrant and there is really no output in the bag. Extremity: Common normals: no calf tenderness and no pedal edema Neuro: Meningeal signs: no meningeal signs Course Course Hospital Course: Patient is hypotensive in IV fluids are initiated, I have ordered a full complement of labs. We will need to do blood cultures, have her on cardiac monitoring pulse oximetry. Will get an EKG on her. The daughter will be called quickly given patient's status. Her paperwork does say that she is DNR DNI. Will likely be ordering abdominal imaging but need to see where her kidney function is that she had acute kidney injury last hospitalization. Reevaluation(s) Reevaluation #1: Lab is tried multiple times but can only get 1 blood culture. Thus we are going to have to hold with that. Patient is fine having a Monroe put in for fluid management and to obtain urinalysis prior to giving antibiotics. Sepsis is certainly in our differential and a concern here with her hypotension. She is in agreement to the Monroe catheter being placed. Will also be getting a portable chest x-ray. Time: 20:46 Reevaluation #2: Have spoken with the hospitalist as well as the patient. Her liver enzymes are elevated with unclear etiology. She is on Tylenol 4 times a day. It certainly could be sepsis. Her urine is nitrite positive. I have spoken with our hospitalist and we will cover with Rocephin 1 g IV. She did have a catheter in last hospitalization. Have spoken with her daughter gender for and she is in agreement with the plan. Daughter also did bring up that she has been having issues with a coccyx ulcer from last hospitalization. I have passed that on to our nursing staff. Time: 21:37 Vital Signs Vital signs: Initial Vital Signs Pulse Rate 121 H 05/27/22 18:20 Blood Pressure 67/43 L 05/27/22 18:20 Blood Pressure Mean 51 05/27/22 18:20 Blood Pressure Position Supine 05/27/22 18:20 Pulse Oximetry 99 05/27/22 18:20 Oxygen Delivery Method 05/27/22 18:20 Vital Signs Pulse Rate 121 H 05/27/22 18:20 Blood Pressure 67/43 L 05/27/22 18:20 Pulse Oximetry 99 05/27/22 18:20 Oxygen Delivery Method 05/27/22 18:20 Temperature 97.5 F L 05/31/22 07:30 Pulse Rate 66 05/31/22 07:42 Respiratory Rate 16 05/31/22 07:30 Blood Pressure 111/72 05/31/22 07:30 Pulse Oximetry 98 05/31/22 07:30 Oxygen Delivery Method 05/31/22 07:30 MDM - Abdominal Pain Lab Data Attestation: I reviewed the patient's lab results. Labs: Lab Results 05/27/22 05/27/22 05/27/22 Range/Units 18:35 18:43 18:43 WBC 11.05 H (4.50-11.00) K/uL RBC 4.45 (4.00-5.20) m/uL Hgb 13.6 (12.0-16.0) gm/dL Hct 41.0 (33.0-51.0) % MCV 92 (80-100) fL MCH 31 (26-34) pg MCHC 33 (32-36) gm/dL RDW Coeff of Sharmaine 16.3 H (11.5-15.5) % Plt Count 474 H (140-440) K/uL Neut % (Auto) 68.9 (42.0-72.0) % Lymph % (Auto) 20.5 (20-44) % [place] % (Auto) 7.6 (0.0-11.0) % Eos % (Auto) 2.1 (0.0-7.0) % Baso % (Auto) 0.6 (0.0-3.0) % Neut # (Auto) 7.60 H (1.7-7.0) K/uL Lymph # (Auto) 2.30 (0.90-2.90) K/uL [place] # (Auto) 0.80 (0.00-0.90) K/UL Eos # (Auto) 0.20 (0.00-0.50) K/uL Baso # (Auto) 0.10 (0.00-0.30) K/uL Abs Immat Gran (auto) 0.03 (0.00-0.30) K/uL ESR 16 (2-20) mm/hr Sodium (135-149) mmol/L Potassium (3.6-5.1) mmol/L Chloride (96-114) mmol/L Carbon Dioxide (20-32) mmol/L BUN (7-30) mg/dL Creatinine (0.5-1.5) mg/dL Estimated GFR ml/min Glucose (60-115) mg/dL Lactate (0.5-1.9) mmol/L Calcium (8.4-10.6) mg/dL Total Bilirubin (0.1-1.5) mg/dL AST (12-35) U/L ALT (4-35) U/L Alkaline Phosphatase (40-150) U/L C-Reactive Protein 0.7 (0.5-1.0) mg/dL Total Protein (6.0-8.3) g/dL Albumin (3.3-5.0) g/dL Urine Color (Yellow) Urine Appearance (Clear) Urine pH (5.0-8.5) Ur Specific Wray (1.000-1.030) Urine Protein (Negative) Urine Glucose (UA) (Negative) Urine Ketones (Negative) Urine Blood (Negative) Urine Nitrite (Negative) Urine Bilirubin (Negative) Urine Urobilinogen (0.2-1.0) Ur Leukocyte Esterase (Negative) Urine RBC (0-2) Urine WBC (0-5) Ur Squamous Epith Cells (None-Few) Urine Bacteria (None) SARS-CoV-2 (PCR) (Negative) 05/27/22 05/27/22 05/27/22 Range/Units 18:43 18:43 18:43 WBC (4.50-11.00) K/uL RBC (4.00-5.20) m/uL Hgb (12.0-16.0) gm/dL Hct (33.0-51.0) % MCV (80-100) fL MCH (26-34) pg MCHC (32-36) gm/dL RDW Coeff of Sharmaine (11.5-15.5) % Plt Count (140-440) K/uL Neut % (Auto) (42.0-72.0) % Lymph % (Auto) (20-44) % [place] % (Auto) (0.0-11.0) % Eos % (Auto) (0.0-7.0) % Baso % (Auto) (0.0-3.0) % Neut # (Auto) (1.7-7.0) K/uL Lymph # (Auto) (0.90-2.90) K/uL [place] # (Auto) (0.00-0.90) K/UL Eos # (Auto) (0.00-0.50) K/uL Baso # (Auto) (0.00-0.30) K/uL Abs Immat Gran (auto) (0.00-0.30) K/uL ESR (2-20) mm/hr Sodium 127 L (135-149) mmol/L Potassium 5.8 H (3.6-5.1) mmol/L Chloride 94 L (96-114) mmol/L Carbon Dioxide 23 (20-32) mmol/L BUN 38 H (7-30) mg/dL Creatinine 1.4 (0.5-1.5) mg/dL Estimated GFR 37 ml/min Glucose 110 (60-115) mg/dL Lactate 2.7 H (0.5-1.9) mmol/L Calcium 9.8 (8.4-10.6) mg/dL Total Bilirubin 0.8 (0.1-1.5) mg/dL AST 211 H (12-35) U/L ALT 398 H (4-35) U/L Alkaline Phosphatase 334 H (40-150) U/L C-Reactive Protein (0.5-1.0) mg/dL Total Protein 7.4 (6.0-8.3) g/dL Albumin 4.4 (3.3-5.0) g/dL Urine Color (Yellow) Urine Appearance (Clear) Urine pH (5.0-8.5) Ur Specific [place] (1.000-1.030) Urine Protein (Negative) Urine Glucose (UA) (Negative) Urine Ketones (Negative) Urine Blood (Negative) Urine Nitrite (Negative) Urine Bilirubin (Negative) Urine Urobilinogen (0.2-1.0) Ur Leukocyte Esterase (Negative) Urine RBC (0-2) Urine WBC (0-5) Ur Squamous Epith Cells (None-Few) Urine Bacteria (None) SARS-CoV-2 (PCR) Negative SARS-CoV-2 (Negative) 05/27/22 Range/Units 20:48 WBC (4.50-11.00) K/uL RBC (4.00-5.20) m/uL Hgb (12.0-16.0) gm/dL Hct (33.0-51.0) % MCV (80-100) fL MCH (26-34) pg MCHC (32-36) gm/dL RDW Coeff of Sharmaine (11.5-15.5) % Plt Count (140-440) K/uL Neut % (Auto) (42.0-72.0) % Lymph % (Auto) (20-44) % [place] % (Auto) (0.0-11.0) % Eos % (Auto) (0.0-7.0) % Baso % (Auto) (0.0-3.0) % Neut # (Auto) (1.7-7.0) K/uL Lymph # (Auto) (0.90-2.90) K/uL [place] # (Auto) (0.00-0.90) K/UL Eos # (Auto) (0.00-0.50) K/uL Baso # (Auto) (0.00-0.30) K/uL Abs Immat Gran (auto) (0.00-0.30) K/uL ESR (2-20) mm/hr Sodium (135-149) mmol/L Potassium (3.6-5.1) mmol/L Chloride (96-114) mmol/L Carbon Dioxide (20-32) mmol/L BUN (7-30) mg/dL Creatinine (0.5-1.5) mg/dL Estimated GFR ml/min Glucose (60-115) mg/dL Lactate (0.5-1.9) mmol/L Calcium (8.4-10.6) mg/dL Total Bilirubin (0.1-1.5) mg/dL AST (12-35) U/L ALT (4-35) U/L Alkaline Phosphatase (40-150) U/L C-Reactive Protein (0.5-1.0) mg/dL Total Protein (6.0-8.3) g/dL Albumin (3.3-5.0) g/dL Urine Color Yellow (Yellow) Urine Appearance Cloudy A (Clear) Urine pH 5.5 (5.0-8.5) Ur Specific [place] 1.010 (1.000-1.030) Urine Protein 2+ A (Negative) Urine Glucose (UA) Negative (Negative) Urine Ketones Negative (Negative) Urine Blood 1+ A (Negative) Urine Nitrite Positive A (Negative) Urine Bilirubin Negative (Negative) Urine Urobilinogen 0.2 (0.2-1.0) Ur Leukocyte Esterase 1+ A (Negative) Urine RBC 10-25 A (0-2) Urine WBC >100 A (0-5) Ur Squamous Epith Cells None (None-Few) Urine Bacteria Many A (None) SARS-CoV-2 (PCR) (Negative) Imaging Data CT scan - abdomen: Attestation: I have reviewed the pertinent imaging results. Radiologist's impression: Patient: BELTRAN SOMMERS Facility:?[facility] Patient ID:?[id number] Site Patient ID:?[id number]. Site :?[id number] Study:?CT Abdomen/Pelvis 39CC ISOVUE 370-05/27/2022 8:17:55 PM Ordering Physician:?Alba Resendiz Final Report: INDICATION: Abdominal pain. Failure to thrive. TECHNIQUE: CT abdomen and pelvis acquired with 39 cc Isovue 370 IV contrast. COMPARISON: May 02, 2022. FINDINGS: Lower chest: Unremarkable. Liver: Unremarkable. Normal in size and attenuation. No suspicious masses. Gallbladder and bile ducts: Post cholecystectomy with moderate secondary biliary dilatation. Pancreas: Unremarkable. No mass or inflammation. Spleen: Unremarkable. Normal in size. No masses. Adrenal glands: Unremarkable. No nodules. Kidneys: Unremarkable. No suspicious masses, stones, or hydronephrosis. GI tract: Right ventral ostomy is present. GI tract otherwise within normal limits in caliber and appearance. No obstructive changes. No sign of acute inflammation. Vasculature: Abdominal aorta is normal in caliber. Mesenteric arteries are patent. Lymph nodes: No lymphadenopathy. Peritoneum/Abdominal Wall: Unremarkable. No sign of mass or infiltration. No free air or significant free fluid. Pelvis: Unremarkable. Bones: No acute findings or changes. IMPRESSION: GI tract is normal in caliber on today`s exam, no obstructive changes. No acute or specific finding to explain abdominal pain. Please note that all CT scans at this facility use dose modulation, iterative reconstruction, and/or weight-based dosing when appropriate to reduce radiation dose to as low as reasonably achievable. Dictated by Lavelle Roman MD @ 05/27/2022 8:46:57 PM (Electronic Signature) ECG Data Attestation: I personally reviewed and interpreted this ECG as follows: (Sinus tachycardia, 119 beats per minute) ECG interpretation date: 05/27/22 ECG interpretation time: 19:52 Critical Care Time Critical Care Time Critical Care Time: No Discharge Plan Discharge Clinical Impression: Acute hypotension, Sepsis, Adrenal insufficiency, Urinary tract infection Patient Disposition: Admitted As Inpatient Condition: Unchanged Activity Level: Activity as Tolerated Discharge Diet: Regular
[2022-05-27 19:03] LABS: Lactate* 2.7 mmol/L (0.5-1.9)
[2022-05-27 19:23] LABS: Slide Review Reflex No
[2022-05-27 19:25] LABS: Albumin* 4.4 g/dL (3.3-5.0); Chloride* 94 mmol/L (96-114)
[2022-05-27 19:26] LABS: Potassium* 5.8 mmol/L (3.6-5.1); Sodium* 127 mmol/L (135-149)
[2022-05-27 19:28] LABS: Aspartate Amino Transferase* 211 U/L (12-35); Bilirubin Total* 0.8 mg/dL (0.1-1.5); Blood Urea Nitrogen* 38 mg/dL (7-30); Carbon Dioxide* 23 mmol/L (20-32); Creatinine* 1.4 mg/dL (0.5-1.5); Estimated Glomerular Filt Rate 37 ml/min; Total Protein* 7.4 g/dL (6.0-8.3)
[2022-05-27 19:29] LABS: Alanine Aminotransferase* 398 U/L (4-35); Alkaline Phosphatase* 334 U/L (40-150); Calcium* 9.8 mg/dL (8.4-10.6); Glucose* 110 mg/dL (60-115)
--- NOTE | 2022-05-27 19:40 | CRLHL7_ITS ---
For Patients: As a result of the Century Cures Act, medical imaging exams and procedure reports are released immediately into your electronic medical record. You may view this report before your referring provider. If you have questions, please contact your health care provider. INDICATION: Abdominal pain. Failure to thrive. TECHNIQUE: CT abdomen and pelvis acquired with 39 cc Isovue 370 IV contrast. COMPARISON: May 02, 2022. FINDINGS: Lower chest: Unremarkable. Liver: Unremarkable. Normal in size and attenuation. No suspicious masses. Gallbladder and bile ducts: Post cholecystectomy with moderate secondary biliary dilatation. Pancreas: Unremarkable. No mass or inflammation. Spleen: Unremarkable. Normal in size. No masses. Adrenal glands: Unremarkable. No nodules. Kidneys: Unremarkable. No suspicious masses, stones, or hydronephrosis. GI tract: Right ventral ostomy is present. GI tract otherwise within normal limits in caliber and appearance. No obstructive changes. No sign of acute inflammation. Vasculature: Abdominal aorta is normal in caliber. Mesenteric arteries are patent. Lymph nodes: No lymphadenopathy. Peritoneum/Abdominal Wall: Unremarkable. No sign of mass or infiltration. No free air or significant free fluid. Pelvis: Unremarkable. Bones: No acute findings or changes. IMPRESSION: GI tract is normal in caliber on today`s exam, no obstructive changes. No acute or specific finding to explain abdominal pain. Please note that all CT scans at this facility use dose modulation, iterative reconstruction, and/or weight-based dosing when appropriate to reduce radiation dose to as low as reasonably achievable. Dictated by Lavelle Roman MD @ 05/27/2022 8:46:57 PM (Electronically Signed)
[2022-05-27 19:43] LABS: C Reactive Protein* 0.7 mg/dL (0.5-1.0)
[2022-05-27] MEDS: 0.9 % SODIUM CHLORIDE 250 ml 250 ML IV ×4 (19:50→23:34)
[2022-05-27 20:02] LABS: Erythrocyte SedimentationRate* 16 mm/hr (2-20)
--- NOTE | 2022-05-27 20:49 | CRLHL7_ITS ---
For Patients: As a result of the Cures Act, medical imaging exams and procedure reports are released immediately into your electronic medical record. You may view this report before your referring provider. If you have questions, please contact your health care provider. INDICATION: Hypotension. COMPARISON: 05/02/2022 portable chest radiographs. FINDINGS/IMPRESSION: Portable AP chest radiograph. Mild biapical pleural and parenchymal scarring, similar to the previous exam. No acute pulmonary consolidation identified. No pleural effusions. Upper normal heart size. Nondisplaced fracture of the posterior right 8th rib, likely subacute. Spinal degenerative changes. Dictated by Alen Lozada MD @ 05/27/2022 9:50:32 PM Dictated by: Alen Lozada MD @ 05/27/2022 21:50:45 (Electronically Signed)
[2022-05-27 20:50] LABS: SARS PCR* Negative SARS-CoV-2 (Negative)
[2022-05-27] MEDS: HYDROCORTISONE SOD SUCCINATE 50 MG/ML inj 100 MG IVP (20:55)
[2022-05-27 20:58] LABS: Appearance Urine Cloudy (Clear); Bilirubin Urine Negative (Negative); Blood Urine 1+ (Negative); Color Urine Yellow (Yellow); Glucose Urine Negative (Negative); Ketones Urine Negative (Negative); Leukocyte Esterase Urine 1+ (Negative); Nitrite Urine Positive (Negative); Protein Urine 2+ (Negative); Urobilinogen Urine 0.2 (0.2-1.0); pH Urine 5.5 (5.0-8.5)
[2022-05-27 21:25] LABS: Bacteria Urine Many; WBC Urine >100 (0-5)
[2022-05-27] MEDS: cefTRIAXone 1 GM in 0.9 % SODIUM CHLORIDE Mini-bag 100 ML IVPB (21:51)
--- NOTE | 2022-05-27 22:21 | W.PC.EDHO ---
Primary Language: Azeri Preferred Language: Orientation Status: [] Alert & Oriented [x] Slight Confusion [] Known Dx Dementia Transfers By: [] Assist of 1 [] Assist of 2 [x] Lift Active Medications Discontinued Medications Generic Name Dose Route Start Last Admin Trade Name Eric PRN Reason Stop Dose Admin Hydrocortisone Sodium Succinate 100 mg 05/27/22 20:30 05/27/22 20:55 Hydrocortisone Sod Succinate 50 Mg/Ml Inj IVP 05/27/22 20:31 100 mg ONCE ONE Administration Sodium Chloride 500 mls @ 500 mls/hr 05/27/22 18:42 05/27/22 19:45 0.9 % Sodium Chloride 500 Ml IV 05/27/22 19:41 Infused .Q1H ONE Infusion Sodium Chloride 250 mls @ 250 mls/hr 05/27/22 19:50 05/27/22 20:54 0.9 % Sodium Chloride 250 Ml IV 05/27/22 20:49 Infused .Q1H ONE Infusion Sodium Chloride 250 mls @ 250 mls/hr 05/27/22 20:47 05/27/22 21:53 0.9 % Sodium Chloride 250 Ml IV 05/27/22 21:46 Infused .Q1H ONE Infusion Ceftriaxone Sodium 1 gm/ 100 mls @ 200 mls/hr 05/27/22 21:35 05/27/22 21:51 Sodium Chloride IVPB 05/27/22 21:36 200 mls/hr ONCE ONE Administration Description of Symptoms ED Triage Present Problem Pt has abd pain and nausea, reportedly no BM for 1 Description -2 days. Low BPs. Female History Patient No Patient No Pain Pain Intensity [Abdomen] 10 Pain Scale Used [Abdomen] Numeric (1 - 10) IV Insertion/Site Date of IV Line Insertion [ 05/27/22 Right Antecubital] Oxygen Administration Pulse Oximetry 93 Pulse Oximetry 95 Pulse Oximetry 98 Pulse Oximetry 99 Pulse Oximetry 92 Pulse Oximetry 96 Pulse Oximetry 96 Pulse Oximetry 95 Pulse Oximetry 99 Oxygen Delivery Method Room Air Oxygen Delivery Method Room Air Oxygen Delivery Method Room Air Oxygen Delivery Method Room Air Oxygen Delivery Method Room Air Oxygen Delivery Method Room Air Oxygen Delivery Method Room Air Oxygen Delivery Method Room Air Oxygen Delivery Method Room Air Oxygen Delivery Method Room Air Oxygen Delivery Method Room Air
--- NOTE | 2022-05-27 23:50 | ED.NURSE ---
Pt taken to M/[facility] by cart.
[2022-05-28] VITALS (21 sets, daily range): BP systolic 98–133; BP diastolic 48–73; PULSE 82–111; RESP 16; TEMP 36.3–37.2; O2SAT 96–100; BMI 16.2
--- NOTE | 2022-05-28 00:43 | P.IMHP_ITS ---
Hospitalist- H&P: HPI History of Present Illness Time Seen by Provider: 23:00 Date Seen: 05/27/22 Chief complaint: Abdominal Pain Narrative: Shira Stauffer is a 86 year old female transferred from the snf for back pain, abdominal pain and poor p.o. intake. Patient is unable to give much history of recent events. She tells me she has had back and abdominal pain for weeks or months. She is unable to tell me what has changed recently that brought her to the emergency room. Secondhand report from the snf suggests that she has been taking minimal p.o. food and fluid. She has decreased ostomy output. Four weeks ago she was hospitalized here with septic shock. Transferred to [facility] where she was diagnosed with bowel obstruction and ischemic bowel. She had a bowel resection at that time. 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 Review of Systems Status of ROS: Reports: unobtainable due to medical condition Narrative: Patient reports no other symptoms of illness other than generalized back and abdominal pain. Due to altered mental status and dementia is unable to give other details of history [facility] Medical History (Updated 05/28/22 @ 01:12 by Adriel Rodriguez MD) Abnormal liver enzymes Adrenal insufficiency Anxiety Asthma Atherosclerotic cardiovascular disease Cataract Chronic kidney disease (CKD) stage G3a/A1, moderately decreased glomerular filtration rate (GFR) between 45-59 mL/min/1.73 square meter and albuminuria creatinine ratio less than 30 mg/g Constipation Convulsions Dementia Diabetes mellitus type 1 Dorsalgia GERD (gastroesophageal reflux disease) Hyperkalemia Hyperlipidemia Hyponatremia Hypothyroidism Osteoarthritis Pelvic fracture Postmenopausal atrophic vaginitis Pressure ulcer of sacral region, unstageable Primary adrenocortical insufficiency Primary hypertension Type 1 diabetes mellitus Unspecified dementia without behavioral disturbance Vertebral fracture Surgical History (Updated 05/28/22 @ 01:05 by Adriel Rodriguez MD) H/O angioplasty H/O mastoidectomy No significant past surgical history S/P appendectomy S/P laparoscopic cholecystectomy S/P small bowel resection Social History (Updated 05/02/22 @ 17:42 by Evita Mccracken MD) Narrative: Patient lives in a snf. Highest level of school completed/degree received: don't know Smoking Status: Never smoker Do you use any of these nicotine containing products: None Second hand tobacco smoke exposure: No How often do you have a drink containing alcohol: never AUDIT-C Alcohol total score: 0 Non-prescribed substance use: denies use Caffeine: No service: No Meds Home Medications and Allergies Home Medications Medication Instructions Recorded Confirmed Type acetaminophen 325 mg tablet 650 mg PO QID PRN 05/02/22 05/02/22 History aspirin 81 mg tablet,delayed 81 mg PO DAILY 05/02/22 05/28/22 History release atorvastatin 40 mg tablet 40 mg PO DAILY 05/02/22 05/28/22 History calcitonin (salmon) 200 1 spray INTRANASAL (ALT) DAILY 05/02/22 05/28/22 History unit/actuation nasal spray cholecalciferol (vitamin D3) 50 50 mcg PO DAILY 05/02/22 05/28/22 History mcg (2,000 unit) tablet clopidogrel 75 mg tablet 75 mg PO DAILY 05/02/22 05/28/22 History coenzyme Q10 100 mg capsule 100 mg PO DAILY 05/02/22 05/28/22 History cadence.stocking,knee,reg,smal 05/02/22 05/02/22 History (T.E.D. Anti-Embolism Stocking) estradiol 0.01% (0.1 mg/gram) 1 appful VAGINAL .FRIDAY,Friday05/02/22 05/28/22 History vaginal cream famotidine 20 mg tablet 20 mg PO Q12H 05/02/22 05/28/22 History glucose 4 gram chewable tablet 4 g PO PRN PRN 05/02/22 05/28/22 History (TRUEplus Glucose) hydrocortisone 2.5 % topical cream 1 applic TOPICAL BID PRN 05/02/22 05/02/22 History with perineal applicator hydrocortisone 5 mg tablet 5 - 10 mg PO BID 05/02/22 05/28/22 History insulin glargine 100 unit/mL (3 13 unit SUBCUT DAILY 05/02/22 05/28/22 History mL) subcutaneous pen (Lantus Solostar U-100 Insulin) insulin lispro 100 unit/mL 2 - 5 unit SUBCUT TIDWM 05/02/22 05/28/22 History subcutaneous pen (Humalog KwikPen (U-100) Insulin) lactobacillus combination no.4 3 3,000 mmu cells PO DAILY 05/02/22 05/02/22 History billion cell capsule (Probiotic) levothyroxine 75 mcg tablet 75 mcg PO DAILY 05/02/22 05/28/22 History lisinopril 5 mg tablet 5 mg PO DAILY 05/02/22 05/28/22 History loratadine 10 mg tablet 10 mg PO DAILY 05/02/22 05/02/22 History magnesium oxide 250 mg PO DAILY 05/02/22 05/28/22 History morphine 15 mg tablet,extended 15 mg PO TID 05/02/22 05/28/22 History release multivit-iron 18 mg-folic acid 400 1 tab PO DAILY 05/02/22 05/28/22 History mcg-calcium 500 mg-minerals tablet (Women's One Daily) nitroglycerin 0.4 mg sublingual 0.4 mg SUBLINGUAL Q5M 05/02/22 05/02/22 History tablet (Nitrostat) nystatin 100,000 unit/gram topical 1 applic TOPICAL BID PRN 05/02/22 05/02/22 History powder olopatadine 0.2 % eye drops 1 drp OPHTHALMIC (EYE) DAILY 05/02/22 05/28/22 History oxycodone 5 mg tablet 5 mg PO Q6H PRN 05/02/22 05/28/22 History pen needle,diabetic dual safty 30 05/02/22 05/02/22 History gauge x 3/16 (BD AutoShield Duo Pen Needle) polyethylene glycol 3350 17 17 g PO DAILY 05/02/22 05/28/22 History gram/dose oral powder sennosides 8.6 mg-docusate sodium 1 tab-cap PO BID PRN 05/02/22 05/28/22 History 50 mg tablet (Senexon-S) sodium chloride 0.65 % nasal spray 1 spray INTRANASAL BID 05/02/22 05/02/22 History aerosol (Deep Sea Nasal) vitamin B complex (Vitamins B 1 cap PO DAILY 05/02/22 05/28/22 History Complex capsule) Allergies Allergy/AdvReac Type Severity Reaction Status Date / Time adhesive tape Allergy Mild Rash Verified 05/02/22 01:16 diclofenac Allergy Unknown Verified 05/02/22 01:16 aspartame Allergy Unverified 05/02/22 01:16 beclomethasone Allergy Unverified 05/02/22 01:16 bisacodyl Allergy Unverified 05/02/22 01:16 dexamethasone Allergy Unverified 05/02/22 01:16 doxycycline Allergy Unverified 05/02/22 01:16 erythromycin base Allergy Unverified 05/02/22 01:16 gabapentin Allergy Unverified 05/02/22 01:16 hydrochlorothiazide Allergy Unverified 05/02/22 01:16 lactase [From Dairy Aid] Allergy Unverified 05/02/22 01:16 meclizine Allergy Unverified 05/02/22 01:16 metformin Allergy Unverified 05/02/22 01:16 metoclopramide Allergy Unverified 05/02/22 01:16 nabumetone [From Relafen] Allergy Unverified 05/02/22 01:16 propranolol Allergy Unverified 05/02/22 01:16 raloxifene Allergy Unverified 05/02/22 01:16 ramipril Allergy Unverified 05/02/22 01:16 tobramycin Allergy Unverified 05/02/22 01:16 venlafaxine Allergy Unverified 05/02/22 01:16 Exam Narrative: Exam Narrative: She is sleeping in bed but arouses to voice. She is oriented to be in the hospital but cannot tell me why she is here. She appears comfortable until I ask her to move even the slightest amount when she appears to be in significant pain. She indicates pain is all over in her back and abdomen. Head is without trauma. Eyes are normal. Oropharynx with dry mucous membranes. Neck is supple without mass or adenopathy. Respirations are clear to auscultation. Breathing is unlabored. Cardiovascular: S1, S2, regular rate and rhythm. No murmur gallop or rub. Abdomen: Bowel sounds active. Abdomen is soft she has diffuse tenderness. Right-sided ileostomy noted. Moderate liquid stool in the bag. Abdominal incision with roverto still in place. No evidence of wound infection. Palpation over her back shows diffuse tenderness to palpation over her ribs, thoracic spine in the midline, lumbar spine and low back. She has a sacral ulcer of about 1 cm in size. Minimal surrounding erythema. She is cachectic in appearance with marked muscle mass loss. No significant edema. Extremities are cool to touch with poor perfusion of her hands and feet. Const: Vital Signs, click to edit/add: Vital Signs - 24 hr 05/27/22 18:20 05/27/22 18:22 05/27/22 18:45 Temperature 96.6 F L Pulse Rate Pulse Rate [Right Pulse Oximeter] 121 H 118 H 117 H Respiratory Rate 23 Blood Pressure [Ri ght Arm] Blood Pressure [Ri ght Upper Arm] 67/43 L 64/35 L 81/49 L Pulse Oximetry 99 95 96 05/27/22 19:00 05/27/22 19:15 05/27/22 19:30 Temperature Pulse Rate Pulse Rate [Right Pulse Oximeter] 115 H 112 H 112 H Respiratory Rate 25 H 23 19 Blood Pressure [Ri ght Arm] Blood Pressure [Ri ght Upper Arm] 75/45 L 83/50 L 86/55 L Pulse Oximetry 96 05/27/22 19:45 05/27/22 20:00 05/27/22 20:38 Temperature Pulse Rate Pulse Rate [Right Pulse Oximeter] 114 H 115 H Respiratory Rate 26 H 26 H Blood Pressure [Ri ght Arm] Blood Pressure [Ri ght Upper Arm] 105/69 122/66 87/48 L Pulse Oximetry 92 05/27/22 20:45 05/27/22 20:50 05/27/22 21:00 Temperature Pulse Rate Pulse Rate [Right Pulse Oximeter] 117 H 115 H 120 H Respiratory Rate 23 23 20 Blood Pressure [Ri ght Arm] Blood Pressure [Ri ght Upper Arm] 86/54 L 96/55 L 91/56 L Pulse Oximetry 99 98 95 05/27/22 21:15 05/27/22 21:30 05/27/22 21:45 Temperature Pulse Rate Pulse Rate [Right Pulse Oximeter] 112 H 106 H 107 H Respiratory Rate 20 18 15 Blood Pressure [Ri ght Arm] Blood Pressure [Ri ght Upper Arm] 104/60 92/53 L 82/52 L Pulse Oximetry 93 98 96 05/27/22 22:00 05/27/22 22:15 05/27/22 22:30 Temperature Pulse Rate Pulse Rate [Right Pulse Oximeter] 109 H 109 H 109 H Respiratory Rate 12 12 14 Blood Pressure [Ri ght Arm] Blood Pressure [Ri ght Upper Arm] 80/50 L 89/42 L 98/50 L Pulse Oximetry 98 96 98 05/27/22 22:45 05/27/22 23:00 05/27/22 23:15 Temperature Pulse Rate Pulse Rate [Right Pulse Oximeter] 106 H 110 H 110 H Respiratory Rate 15 8 L Blood Pressure [Ri ght Arm] Blood Pressure [Ri ght Upper Arm] 92/62 104/48 L 113/59 L Pulse Oximetry 97 97 05/27/22 23:30 05/28/22 00:00 Temperature 98.5 F Pulse Rate 104 H Pulse Rate [Right Pulse Oximeter] 104 H Respiratory Rate 18 16 Blood Pressure [Ri ght Arm] 104/73 Blood Pressure [Ri ght Upper Arm] 108/76 Pulse Oximetry 98 98 Documenting provider has reviewed patient's vital signs: yes Hospitalist - H&P: Result Labs Labs: Short CBC 05/27/22 Range/Units 18:43 WBC 11.05 H (4.50-11.00) K/uL Hgb 13.6 (12.0-16.0) gm/dL Hct 41.0 (33.0-51.0) % Plt Count 474 H (140-440) K/uL BMP 05/27/22 18:43 Sodium 127 L Potassium 5.8 H Chloride 94 L Carbon Dioxide 23 BUN 38 H Creatinine 1.4 Glucose 110 Calcium 9.8 Liver Function 05/27/22 Range/Units 18:43 Total Bilirubin 0.8 (0.1-1.5) mg/dL AST 211 H (12-35) U/L ALT 398 H (4-35) U/L Alkaline Phosphatase 334 H (40-150) U/L Albumin 4.4 (3.3-5.0) g/dL Urine 05/27/22 Range/Units 20:48 Urine Color Yellow (Yellow) Urine Appearance Cloudy A (Clear) Urine pH 5.5 (5.0-8.5) Ur Specific [place] 1.010 (1.000-1.030) Urine Protein 2+ A (Negative) Urine Glucose (UA) Negative (Negative) Imaging CT scan - abdomen: Radiologist's impression: CT abdomen pelvis with no acute abnormality. Assessment and Plan Assessment and plan (1) Sepsis: Status: Acute Assessment and Plan: Patient is hypotensive, tachycardic, with poor perfusion and elevated lactate. Clinically appears to be in septic shock. She has received some fluid resuscitation and hydrocortisone and antibiotics and has clinically improved over the last few hours. (2) Acute hypotension: Status: Acute Assessment and Plan: Septic shock versus acute adrenal insufficiency (3) Urinary tract infection: Status: Acute Assessment and Plan: Possible source for sepsis. Culture pending (4) Adrenal insufficiency: Status: Acute Assessment and Plan: Has chronic adrenal insufficiency and is on hydrocortisone chronically. Currently unclear why she is having what appears to be acute adrenal insufficiency. Stress dose hydrocortisone has been initiated and appears to be working. (5) Abnormal liver enzymes: Status: Acute Assessment and Plan: Cause for this is uncertain. Concerned that it could be related to sepsis and hypotension. If not clinically improving may need further evaluation for causes of hepatitis (6) S/P small bowel resection: Status: Acute Assessment and Plan: No evidence for complication related to surgery 1 month ago (7) Sacral ulcer: Status: Acute Assessment and Plan: Routine wound care and improve nutrition (8) Hyperkalemia: Status: Acute Assessment and Plan: Possibly due to adrenal insufficiency. Follow and manage (9) Hyponatremia: Status: Acute Assessment and Plan: Possibly due to adrenal insufficiency. Follow and manage (10) Type 1 diabetes mellitus: Status: Acute Assessment and Plan: Close monitoring in the context of acute treatment for adrenal insufficiency with high-dose hydrocortisone (11) Abdominal pain: Status: Acute Assessment and Plan: Unclear if this is acute or chronic, related to surgery, related to sepsis, hepatitis, adrenal insufficiency. Serial exams and monitoring. CT findings are reassuring. (12) Back pain: Status: Acute Assessment and Plan: This may well be a chronic problem. Difficult to assess. Almost certainly has osteoporosis and compression fractures as well as osteoarthritis. Continue chronic opioids (13) Chronic pain: Status: Acute Assessment and Plan: Continue chronic opioids (14) Dehydration: Status: Acute Assessment and Plan: Encourage oral intake. Monitor for patient's ability to maintain nutrition and hydration. Maintenance IV fluids for now
[2022-05-28] MEDS: PIPERACILLIN/TAZOBACTAM 2.25 GM in 0.9 % SODIUM CHLORIDE Mini-bag 100 ML IVPB ×4 (00:53→23:04)
[2022-05-28] MEDS: 0.9 % SODIUM CHLORIDE 1000 ml 1,000 ML 75 ML IV (00:54)
[2022-05-28] MEDS: FAMOTIDINE 20 MG TABLET PO (03:02)
--- NOTE | 2022-05-28 05:37 | PC.NURSE ---
Admission note: Pt admitted from ED to CCU3 via stretcher @ [id number] dx: septic shock vs adrenal insufficiency. Pt unable to provide any significant history d/t dementia, only demonstrates s/s of pain when turned otherwise appears to rest comfortably. Pt was admitted to [facility] 1 month ago but transferred to [place] where she underwent bowel surgery d/t ischemic bowel w/ resulting ileostomy. Pt is a resident of [facility], staff had pt brought to ER for evaluation of abd/back pain although hypotensive upon arrival. Pt has been afebrile w/ adequate BP's during the night.
[2022-05-28] MEDS: LEVOTHYROXINE 75 MCG TABLET PO (06:24)
[2022-05-28] MEDS: HYDROCORTISONE SOD SUCCINATE 50 MG/ML inj 100 MG IVP (06:24)
[2022-05-28] MEDS: COENZYME Q10 100 MG CAPSULE PO (08:54)
[2022-05-28] MEDS: ATORVASTATIN CALCIUM 40 MG TABLET PO (08:54)
[2022-05-28] MEDS: ASPIRIN 81 MG TABLET EC PO (08:54)
[2022-05-28] MEDS: MAGNESIUM OXIDE 400 MG TABLET PO (08:55)
[2022-05-28] MEDS: MULTIVITAMIN/MINERALS 1 TABLET 1 TAB PO (08:55)
[2022-05-28 09:39] LABS: Basophils Absolute Auto 0.02 K/uL (0.00-0.30); Basophils Percent Auto 0.2 % (0.0-3.0); Hematocrit 32.6 % (33.0-51.0); Hemoglobin* 10.7 gm/dL (12.0-16.0); Immature Granulocytes Abs Auto 0.13 K/uL (0.00-0.30); Mean Corpuscular HGB Conc 33 gm/dL (32-36); Mean Corpuscular Hemoglobin 31 pg (26-34); Mean Corpuscular Volume 95 fL (80-100); Monocytes Percent Auto 1.3 % (0.0-11.0); Neutrophils Percent Auto 90.3 % (42.0-72.0); Platelet Count* 373 K/uL (140-440); RDW Coefficient of Variation % 16.6 % (11.5-15.5); Red Blood Count 3.43 m/uL (4.00-5.20); White Blood Count* 10.43 K/uL (4.50-11.00)
[2022-05-28 09:46] LABS: Slide Review Reflex No
[2022-05-28 10:16] LABS: Albumin* 3.3 g/dL (3.3-5.0)
[2022-05-28 10:17] LABS: Chloride* 99 mmol/L (96-114)
[2022-05-28 10:19] LABS: Carbon Dioxide* 15 mmol/L (20-32); Creatinine* 0.9 mg/dL (0.5-1.5); Estimated Glomerular Filt Rate 63 ml/min
[2022-05-28 10:20] LABS: Alanine Aminotransferase* 246 U/L (4-35); Alkaline Phosphatase* 251 U/L (40-150); Aspartate Amino Transferase* 124 U/L (12-35); Bilirubin Direct* 0.2 mg/dL (0.0-0.5); Bilirubin Total* 0.7 mg/dL (0.1-1.5); Blood Urea Nitrogen* 33 mg/dL (7-30); Calcium* 8.5 mg/dL (8.4-10.6); Glucose* 265 mg/dL (60-115); Total Protein* 5.8 g/dL (6.0-8.3)
[2022-05-28 10:23] LABS: Sodium* 123 mmol/L (135-149)
--- NOTE | 2022-05-28 11:52 | NUTR.NU ---
RDN with RN consults for eating poorly and need for supplement. Not appropriate to visit at this time. RDN will attempt to visit at later date.
--- NOTE | 2022-05-28 11:56 | P.IMPN_ITS ---
Progress Note: A&P Assessment and plan (1) Adrenal insufficiency: Status: Acute Plan 1. Presumed Septic Shock vs Adrenal Insufficiency 2. UTI 3. Hyperkalemia 4. Metabolic Acidosis 5. Type I DM 6. Transaminitis 7. Hx of hypothyroidism 8. Acute on chronic adrenal insufficiency 9. Hx of GERD 10. Hx of Dementia For today -continue sigifredo pisano vanco -f/u UCx -hyperkalemia-EKG/lasix/Calcium -NAGMA-sodium bicarb -hyponatremia; corrected for hyperglycemia 126-127; serial sodium checks; fluid restriction -prandial insulin: novolog 6 units with meals -continue CCU status for today Code-DNR/DNI DVT ppx-start heparin subq Time Spent With Patient Total time spent: 35 minutes Subjective Date Seen: 05/28/22 Interval history: patient sitting in bed eating breakfast states she is feeling better denies headache denies dizziness Exam Narrative: Exam Narrative: Gen: Ill appearing elderly female HEENT: NCAT EOMI MMM CV: RRR normal s1 s2 Lungs: CTAB Abd: Soft, nt, nd Neuro: alert; oriented; moves extremities Const: Vital Signs, click to edit/add: Vital Signs - 24 hr 05/27/22 18:20 05/27/22 18:22 05/27/22 18:45 Temperature 96.6 F L Pulse Rate Pulse Rate [Apical ] Pulse Rate [Right Pulse Oximeter] 121 H 118 H 117 H Respiratory Rate 23 Blood Pressure [Ri ght Arm] Blood Pressure [Ri ght Upper Arm] 67/43 L 64/35 L 81/49 L Pulse Oximetry 99 95 96 05/27/22 19:00 05/27/22 19:15 05/27/22 19:30 Temperature Pulse Rate Pulse Rate [Apical ] Pulse Rate [Right Pulse Oximeter] 115 H 112 H 112 H Respiratory Rate 25 H 23 19 Blood Pressure [Ri ght Arm] Blood Pressure [Ri ght Upper Arm] 75/45 L 83/50 L 86/55 L Pulse Oximetry 96 05/27/22 19:45 05/27/22 20:00 05/27/22 20:38 Temperature Pulse Rate Pulse Rate [Apical ] Pulse Rate [Right Pulse Oximeter] 114 H 115 H Respiratory Rate 26 H 26 H Blood Pressure [Ri ght Arm] Blood Pressure [Ri ght Upper Arm] 105/69 122/66 87/48 L Pulse Oximetry 92 05/27/22 20:45 05/27/22 20:50 05/27/22 21:00 Temperature Pulse Rate Pulse Rate [Apical ] Pulse Rate [Right Pulse Oximeter] 117 H 115 H 120 H Respiratory Rate 23 23 20 Blood Pressure [Ri ght Arm] Blood Pressure [Ri ght Upper Arm] 86/54 L 96/55 L 91/56 L Pulse Oximetry 99 98 95 05/27/22 21:15 05/27/22 21:30 05/27/22 21:45 Temperature Pulse Rate Pulse Rate [Apical ] Pulse Rate [Right Pulse Oximeter] 112 H 106 H 107 H Respiratory Rate 20 18 15 Blood Pressure [Ri ght Arm] Blood Pressure [Ri ght Upper Arm] 104/60 92/53 L 82/52 L Pulse Oximetry 93 98 96 05/27/22 22:00 05/27/22 22:15 05/27/22 22:30 Temperature Pulse Rate Pulse Rate [Apical ] Pulse Rate [Right Pulse Oximeter] 109 H 109 H 109 H Respiratory Rate 12 12 14 Blood Pressure [Ri ght Arm] Blood Pressure [Ri ght Upper Arm] 80/50 L 89/42 L 98/50 L Pulse Oximetry 98 96 98 05/27/22 22:45 05/27/22 23:00 05/27/22 23:15 Temperature Pulse Rate Pulse Rate [Apical ] Pulse Rate [Right Pulse Oximeter] 106 H 110 H 110 H Respiratory Rate 15 8 L Blood Pressure [Ri ght Arm] Blood Pressure [Ri ght Upper Arm] 92/62 104/48 L 113/59 L Pulse Oximetry 97 97 05/27/22 23:30 05/28/22 00:00 05/28/22 00:30 Temperature 98.5 F Pulse Rate 104 H Pulse Rate [Apical ] 111 H Pulse Rate [Right Pulse Oximeter] 104 H Respiratory Rate 18 16 16 Blood Pressure [Ri ght Arm] 104/73 Blood Pressure [Ri ght Upper Arm] 108/76 Pulse Oximetry 98 98 98 05/28/22 02:00 05/28/22 04:00 05/28/22 06:00 Temperature 98.1 F 97.9 F 98.9 F Pulse Rate Pulse Rate [Apical ] 102 H 99 101 H Pulse Rate [Right Pulse Oximeter] Respiratory Rate 16 16 16 Blood Pressure [Ri ght Arm] 98/59 L 132/62 111/66 Blood Pressure [Ri ght Upper Arm] Pulse Oximetry 98 99 98 05/28/22 08:00 05/28/22 10:00 05/28/22 11:47 Temperature 98.6 F 98.7 F Pulse Rate 92 Pulse Rate [Apical ] 100 92 98 Pulse Rate [Right Pulse Oximeter] Respiratory Rate 16 16 16 Blood Pressure [Ri ght Arm] 133/56 L 117/54 L Blood Pressure [Ri ght Upper Arm] Pulse Oximetry 96 98 Labs Labs: Laboratory Results - last 24 hr 05/27/22 05/27/22 05/27/22 18:35 18:43 18:43 WBC 11.05 H RBC 4.45 Hgb 13.6 Hct 41.0 MCV 92 MCH 31 MCHC 33 RDW Coeff of Sharmaine 16.3 H Plt Count 474 H Neut % (Auto) 68.9 Lymph % (Auto) 20.5 [place] % (Auto) 7.6 Eos % (Auto) 2.1 Baso % (Auto) 0.6 Neut # (Auto) 7.60 H Lymph # (Auto) 2.30 [place] # (Auto) 0.80 Eos # (Auto) 0.20 Baso # (Auto) 0.10 Abs Immat Gran (auto) 0.03 ESR 16 Sodium Potassium Chloride Carbon Dioxide BUN Creatinine Estimated GFR Glucose Lactate Calcium Total Bilirubin Direct Bilirubin AST ALT Alkaline Phosphatase C-Reactive Protein 0.7 Total Protein Albumin Urine Color Urine Appearance Urine pH Ur Specific [place] Urine Protein Urine Glucose (UA) Urine Ketones Urine Blood Urine Nitrite Urine Bilirubin Urine Urobilinogen Ur Leukocyte Esterase Urine RBC Urine WBC Ur Squamous Epith Cells Urine Bacteria SARS-CoV-2 (PCR) 05/27/22 05/27/22 05/27/22 18:43 18:43 18:43 WBC RBC Hgb Hct MCV MCH MCHC RDW Coeff of Sharmaine Plt Count Neut % (Auto) Lymph % (Auto) [place] % (Auto) Eos % (Auto) Baso % (Auto) Neut # (Auto) Lymph # (Auto) [place] # (Auto) Eos # (Auto) Baso # (Auto) Abs Immat Gran (auto) ESR Sodium 127 L Potassium 5.8 H Chloride 94 L Carbon Dioxide 23 BUN 38 H Creatinine 1.4 Estimated GFR 37 Glucose 110 Lactate 2.7 H Calcium 9.8 Total Bilirubin 0.8 Direct Bilirubin AST 211 H ALT 398 H Alkaline Phosphatase 334 H C-Reactive Protein Total Protein 7.4 Albumin 4.4 Urine Color Urine Appearance Urine pH Ur Specific [place] Urine Protein Urine Glucose (UA) Urine Ketones Urine Blood Urine Nitrite Urine Bilirubin Urine Urobilinogen Ur Leukocyte Esterase Urine RBC Urine WBC Ur Squamous Epith Cells Urine Bacteria SARS-CoV-2 (PCR) Negative SARS-CoV-2 05/27/22 05/28/22 05/28/22 20:48 09:11 09:11 WBC 10.43 RBC 3.43 L Hgb 10.7 L Hct 32.6 L MCV 95 MCH 31 MCHC 33 RDW Coeff of Sharmaine 16.6 H Plt Count 373 Neut % (Auto) 90.3 H Lymph % (Auto) 7.0 L [place] % (Auto) 1.3 Eos % (Auto) 0.0 Baso % (Auto) 0.2 Neut # (Auto) 9.40 H Lymph # (Auto) 0.70 L [place] # (Auto) 0.10 Eos # (Auto) 0.00 Baso # (Auto) 0.02 Abs Immat Gran (auto) 0.13 ESR Sodium 123 L* Potassium 6.0 H Chloride 99 Carbon Dioxide 15 L BUN 33 H Creatinine 0.9 Estimated GFR 63 Glucose 265 H Lactate Calcium 8.5 Total Bilirubin 0.7 Direct Bilirubin 0.2 AST 124 H ALT 246 H Alkaline Phosphatase 251 H C-Reactive Protein Total Protein 5.8 L Albumin 3.3 Urine Color Yellow Urine Appearance Cloudy A Urine pH 5.5 Ur Specific [place] 1.010 Urine Protein 2+ A Urine Glucose (UA) Negative Urine Ketones Negative Urine Blood 1+ A Urine Nitrite Positive A Urine Bilirubin Negative Urine Urobilinogen 0.2 Ur Leukocyte Esterase 1+ A Urine RBC 10-25 A Urine WBC >100 A Ur Squamous Epith Cells None Urine Bacteria Many A SARS-CoV-2 (PCR)
[2022-05-28] MEDS: HEPARIN 5,000 UNIT/0.5 ML INJ 5000 UNIT SUBCUT (12:27)
[2022-05-28] MEDS: SODIUM BICARBONATE 650 MG TABLET PO ×2 (12:28→17:55)
[2022-05-28] MEDS: FUROSEMIDE 10 MG/ML inj IV (12:28)
--- NOTE | 2022-05-28 13:28 | P.GSCN_ITS ---
History of Present Illness Consult details Consult date: 05/28/22 Narrative: The patient is an 86-year-old female with a recent complex surgical history who presented to the emergency department from her intermediate for back pain abdominal pain and poor p.o. intake. When she arrived she was somewhat confused but did state that she has had abdominal and back pain for weeks to months. Today she tells me that she is not sure why she came to the emergency room however she does state that yesterday she had nausea and vomiting and abdominal pain. Per the intermediate she apparently has had minimal p.o. intake and decreased ostomy output as well. She states that she has not felt herself for some time and since her surgery at the beginning of the month she has still not felt quite myself. She states that she has some lightheadedness which is not new. She states that she currently does not have any abdominal pain. She ate lunch without any nausea. She feels that her appetite is good. Review of her record shows that she presented on May 02 after a fall and was in septic shock. She was transferred to [place] where she underwent laparotomy for closed loop obstruction. A portion of the terminal ileum was resected because of ischemia. She did have a temporary abdominal closure was taken back for second- look the following day. There was more ischemic bowel which was resected at that time however this was in the ileum. She then was given an ileostomy. During that hospitalization she was noted to have an ejection fraction of 35% felt to be secondary to stress-induced ischemia. In the emergency department yesterday she was noted to be hypotensive down to 60 as well as tachycardic and complaining of abdominal pain. CT scan revealed no acute intra-abdominal process. She did have a mild white blood cell elevation with normal CRP. Lactate was elevated minimally. She was also noted to be hyponatremic and with acute kidney injury. she has gotten stress dose steroids with marked improvement in blood pressure and heart rate. She was noted to likely have a UTI based on her urinalysis. Review of Systems Status of ROS: Reports: 6 or more systems reviewed and unremarkable except as noted in History and below [facility] Medical History (Updated 05/28/22 @ 15:15 by Selina Kay MD) Abnormal liver enzymes Adrenal insufficiency Anxiety Asthma Atherosclerotic cardiovascular disease Cataract Chronic kidney disease (CKD) stage G3a/A1, moderately decreased glomerular filtration rate (GFR) between 45-59 mL/min/1.73 square meter and albuminuria creatinine ratio less than 30 mg/g Constipation Convulsions Dementia Diabetes mellitus type 1 Dorsalgia GERD (gastroesophageal reflux disease) Hyperkalemia Hyperlipidemia Hyponatremia Hypothyroidism Osteoarthritis Pelvic fracture Postmenopausal atrophic vaginitis Pressure ulcer of sacral region, unstageable Primary adrenocortical insufficiency Primary hypertension Type 1 diabetes mellitus Unspecified dementia without behavioral disturbance Vertebral fracture Surgical History (Updated 05/28/22 @ 01:05 by Adriel Rodriguez MD) H/O angioplasty H/O mastoidectomy No significant past surgical history S/P appendectomy S/P laparoscopic cholecystectomy S/P small bowel resection Social History (Updated 05/02/22 @ 17:42 by Evita Mccracken MD) Narrative: Patient lives in a intermediate. Highest level of school completed/degree received: don't know Smoking Status: Never smoker Do you use any of these nicotine containing products: None Second hand tobacco smoke exposure: No How often do you have a drink containing alcohol: never How often do you have six or more drinks on one occasion: Never AUDIT-C Alcohol total score: 0 Non-prescribed substance use: denies use Caffeine: No service: No Meds Home Medications and Allergies Home Medications Medication Instructions Recorded Confirmed Type aspirin 81 mg tablet,delayed 81 mg PO DAILY 05/02/22 05/28/22 History release atorvastatin 40 mg tablet 40 mg PO DAILY 05/02/22 05/28/22 History calcitonin (salmon) 200 1 spray INTRANASAL (ALT) DAILY 05/02/22 05/28/22 History unit/actuation nasal spray cholecalciferol (vitamin D3) 50 4,000 unit PO DAILY 05/02/22 05/28/22 History mcg (2,000 unit) tablet coenzyme Q10 100 mg capsule 100 mg PO DAILY 05/02/22 05/28/22 History estradiol 0.01% (0.1 mg/gram) 1 appful VAGINAL .FRIDAY,Friday05/02/22 05/28/22 History vaginal cream famotidine 20 mg tablet 20 mg PO BID 05/02/22 05/28/22 History hydrocortisone 5 mg tablet 5 - 10 mg PO BID 05/02/22 05/28/22 History insulin glargine 100 unit/mL (3 13 unit SUBCUT DAILY 05/02/22 05/28/22 History mL) subcutaneous pen (Lantus Solostar U-100 Insulin) insulin lispro 100 unit/mL 2 - 5 unit SUBCUT TIDWM 05/02/22 05/28/22 History subcutaneous pen (Humalog KwikPen (U-100) Insulin) lactobacillus combination no.4 3 3,000 mmu cells PO DAILY 05/02/22 05/28/22 History billion cell capsule (Probiotic) levothyroxine 75 mcg tablet 75 mcg PO DAILY 05/02/22 05/28/22 History magnesium oxide 250 mg PO DAILY 05/02/22 05/28/22 History morphine 15 mg tablet,extended 15 mg PO TID 05/02/22 05/28/22 History release multivit-iron 18 mg-folic acid 400 1 tab PO DAILY 05/02/22 05/28/22 History mcg-calcium 500 mg-minerals tablet (Women's One Daily) olopatadine 0.2 % eye drops 1 drp OPHTHALMIC (EYE) DAILY 05/02/22 05/28/22 History oxycodone 5 mg tablet 5 mg PO Q6H PRN 05/02/22 05/28/22 History polyethylene glycol 3350 17 17 g PO DAILY 05/02/22 05/28/22 History gram/dose oral powder vitamin B complex (Vitamins B 1 cap PO DAILY 05/02/22 05/28/22 History Complex capsule) acetaminophen 500 mg capsule 1,000 mg PO QID PRN 05/28/22 05/28/22 History melatonin 3 mg tablet 6 mg PO HS 05/28/22 05/28/22 History metoprolol tartrate 25 mg tablet 25 mg PO BID 05/28/22 05/28/22 History morphine concentrate 100 mg/5 mL 5 - 20 mg PO Q1H PRN 05/28/22 05/28/22 History (20 mg/mL) oral solution ondansetron HCl 4 mg tablet 4 mg PO Q6H PRN 05/28/22 05/28/22 History simethicone 80 mg chewable tablet 80 mg PO BID PRN 05/28/22 05/28/22 History Allergies Allergy/AdvReac Type Severity Reaction Status Date / Time adhesive tape Allergy Mild Rash Verified 05/28/22 07:25 diclofenac Allergy Unknown Verified 05/02/22 01:16 aspartame Allergy Unverified 05/02/22 01:16 beclomethasone Allergy Unverified 05/02/22 01:16 bisacodyl Allergy Unverified 05/02/22 01:16 dexamethasone Allergy Unverified 05/02/22 01:16 doxycycline Allergy Unverified 05/02/22 01:16 erythromycin base Allergy Unverified 05/02/22 01:16 gabapentin Allergy Unverified 05/02/22 01:16 hydrochlorothiazide Allergy Unverified 05/02/22 01:16 lactase [From Dairy Aid] Allergy Unverified 05/02/22 01:16 meclizine Allergy Unverified 05/02/22 01:16 metformin Allergy Unverified 05/02/22 01:16 metoclopramide Allergy Unverified 05/02/22 01:16 nabumetone [From Relafen] Allergy Unverified 05/02/22 01:16 propranolol Allergy Unverified 05/02/22 01:16 raloxifene Allergy Unverified 05/02/22 01:16 ramipril Allergy Unverified 05/02/22 01:16 tobramycin Allergy Unverified 05/02/22 01:16 venlafaxine Allergy Unverified 05/02/22 01:16 Exam Narrative: Exam Narrative: General appearance: Alert, cooperative, and in no distress Eyes: PERRLA, eye lids clear, and sclera white HENT Head: Normocephalic Ears: External ears normal Pulmonary: Breathing nonlabored on room air Cardiovascular Heart: Regular rate Gastrointestinal Abdominal: Abdomen is soft. Nontender to palpation. Stoma in place it is on the right abdomen. Bag is opaque and obscuring mucosa. There is some stool in the bag. Midline incision without erythema. Caitlyn are in place. Skin: Normal skin color, texture, and turgor. No rashes or lesions. Neurologic: No focal deficits Psychiatric: Alert, cooperative, normal affect. Const: Vital Signs, click to edit/add: Vital Signs - 24 hr 05/27/22 18:20 05/27/22 18:22 05/27/22 18:45 Temperature 96.6 F L Pulse Rate Pulse Rate [Apical ] Pulse Rate [Right Pulse Oximeter] 121 H 118 H 117 H Respiratory Rate 23 Blood Pressure [Ri ght Arm] Blood Pressure [Ri ght Upper Arm] 67/43 L 64/35 L 81/49 L Pulse Oximetry 99 95 96 05/27/22 19:00 05/27/22 19:15 05/27/22 19:30 Temperature Pulse Rate Pulse Rate [Apical ] Pulse Rate [Right Pulse Oximeter] 115 H 112 H 112 H Respiratory Rate 25 H 23 19 Blood Pressure [Ri ght Arm] Blood Pressure [Ri ght Upper Arm] 75/45 L 83/50 L 86/55 L Pulse Oximetry 96 05/27/22 19:45 05/27/22 20:00 05/27/22 20:38 Temperature Pulse Rate Pulse Rate [Apical ] Pulse Rate [Right Pulse Oximeter] 114 H 115 H Respiratory Rate 26 H 26 H Blood Pressure [Ri ght Arm] Blood Pressure [Ri ght Upper Arm] 105/69 122/66 87/48 L Pulse Oximetry 92 05/27/22 20:45 05/27/22 20:50 05/27/22 21:00 Temperature Pulse Rate Pulse Rate [Apical ] Pulse Rate [Right Pulse Oximeter] 117 H 115 H 120 H Respiratory Rate 23 23 20 Blood Pressure [Ri ght Arm] Blood Pressure [Ri ght Upper Arm] 86/54 L 96/55 L 91/56 L Pulse Oximetry 99 98 95 05/27/22 21:15 05/27/22 21:30 05/27/22 21:45 Temperature Pulse Rate Pulse Rate [Apical ] Pulse Rate [Right Pulse Oximeter] 112 H 106 H 107 H Respiratory Rate 20 18 15 Blood Pressure [Ri ght Arm] Blood Pressure [Ri ght Upper Arm] 104/60 92/53 L 82/52 L Pulse Oximetry 93 98 96 05/27/22 22:00 05/27/22 22:15 05/27/22 22:30 Temperature Pulse Rate Pulse Rate [Apical ] Pulse Rate [Right Pulse Oximeter] 109 H 109 H 109 H Respiratory Rate 12 12 14 Blood Pressure [Ri ght Arm] Blood Pressure [Ri ght Upper Arm] 80/50 L 89/42 L 98/50 L Pulse Oximetry 98 96 98 05/27/22 22:45 05/27/22 23:00 05/27/22 23:15 Temperature Pulse Rate Pulse Rate [Apical ] Pulse Rate [Right Pulse Oximeter] 106 H 110 H 110 H Respiratory Rate 15 8 L Blood Pressure [Ri ght Arm] Blood Pressure [Ri ght Upper Arm] 92/62 104/48 L 113/59 L Pulse Oximetry 97 97 05/27/22 23:30 05/28/22 00:00 05/28/22 00:30 Temperature 98.5 F Pulse Rate 104 H Pulse Rate [Apical ] 111 H Pulse Rate [Right Pulse Oximeter] 104 H Respiratory Rate 18 16 16 Blood Pressure [Ri ght Arm] 104/73 Blood Pressure [Ri ght Upper Arm] 108/76 Pulse Oximetry 98 98 98 05/28/22 02:00 05/28/22 04:00 05/28/22 06:00 Temperature 98.1 F 97.9 F 98.9 F Pulse Rate Pulse Rate [Apical ] 102 H 99 101 H Pulse Rate [Right Pulse Oximeter] Respiratory Rate 16 16 16 Blood Pressure [Ri ght Arm] 98/59 L 132/62 111/66 Blood Pressure [Ri ght Upper Arm] Pulse Oximetry 98 99 98 05/28/22 08:00 05/28/22 10:00 05/28/22 11:47 Temperature 98.6 F 98.7 F Pulse Rate 92 Pulse Rate [Apical ] 100 92 98 Pulse Rate [Right Pulse Oximeter] Respiratory Rate 16 16 16 Blood Pressure [Ri ght Arm] 133/56 L 117/54 L Blood Pressure [Ri ght Upper Arm] Pulse Oximetry 96 98 Results Labs Labs: Abnormal lab results 05/27/22 05/27/22 05/27/22 Range/Units 18:43 18:43 18:43 WBC 11.05 H (4.50-11.00) K/uL RBC (4.00-5.20) m/uL Hgb (12.0-16.0) gm/dL Hct (33.0-51.0) % RDW Coeff of Sharmaine 16.3 H (11.5-15.5) % Plt Count 474 H (140-440) K/uL Neut % (Auto) (42.0-72.0) % Lymph % (Auto) (20-44) % Neut # (Auto) 7.60 H (1.7-7.0) K/uL Lymph # (Auto) (0.90-2.90) K/uL Sodium 127 L (135-149) mmol/L Potassium 5.8 H (3.6-5.1) mmol/L Chloride 94 L (96-114) mmol/L Carbon Dioxide (20-32) mmol/L BUN 38 H (7-30) mg/dL Glucose (60-115) mg/dL Lactate 2.7 H (0.5-1.9) mmol/L AST 211 H (12-35) U/L ALT 398 H (4-35) U/L Alkaline Phosphatase 334 H (40-150) U/L Total Protein (6.0-8.3) g/dL Urine Appearance (Clear) Urine Protein (Negative) Urine Blood (Negative) Urine Nitrite (Negative) Ur Leukocyte Esterase (Negative) Urine RBC (0-2) Urine WBC (0-5) Urine Bacteria (None) 05/27/22 05/28/22 05/28/22 Range/Units 20:48 09:11 09:11 WBC (4.50-11.00) K/uL RBC 3.43 L (4.00-5.20) m/uL Hgb 10.7 L (12.0-16.0) gm/dL Hct 32.6 L (33.0-51.0) % RDW Coeff of Sharmaine 16.6 H (11.5-15.5) % Plt Count (140-440) K/uL Neut % (Auto) 90.3 H (42.0-72.0) % Lymph % (Auto) 7.0 L (20-44) % Neut # (Auto) 9.40 H (1.7-7.0) K/uL Lymph # (Auto) 0.70 L (0.90-2.90) K/uL Sodium 123 L* (135-149) mmol/L Potassium 6.0 H (3.6-5.1) mmol/L Chloride (96-114) mmol/L Carbon Dioxide 15 L (20-32) mmol/L BUN 33 H (7-30) mg/dL Glucose 265 H (60-115) mg/dL Lactate (0.5-1.9) mmol/L AST 124 H (12-35) U/L ALT 246 H (4-35) U/L Alkaline Phosphatase 251 H (40-150) U/L Total Protein 5.8 L (6.0-8.3) g/dL Urine Appearance Cloudy A (Clear) Urine Protein 2+ A (Negative) Urine Blood 1+ A (Negative) Urine Nitrite Positive A (Negative) Ur Leukocyte Esterase 1+ A (Negative) Urine RBC 10-25 A (0-2) Urine WBC >100 A (0-5) Urine Bacteria Many A (None) Diabetes panel 05/27/22 05/28/22 Range/Units 18:43 09:11 Sodium 127 L 123 L* (135-149) mmol/L Potassium 5.8 H 6.0 H (3.6-5.1) mmol/L Chloride 94 L 99 (96-114) mmol/L Carbon Dioxide 23 15 L (20-32) mmol/L BUN 38 H 33 H (7-30) mg/dL Creatinine 1.4 0.9 (0.5-1.5) mg/dL Glucose 110 265 H (60-115) mg/dL Calcium 9.8 8.5 (8.4-10.6) mg/dL AST 211 H 124 H (12-35) U/L ALT 398 H 246 H (4-35) U/L Alkaline Phosphatase 334 H 251 H (40-150) U/L Total Protein 7.4 5.8 L (6.0-8.3) g/dL Albumin 4.4 3.3 (3.3-5.0) g/dL Calcium panel 05/27/22 05/28/22 Range/Units 18:43 09:11 Calcium 9.8 8.5 (8.4-10.6) mg/dL Albumin 4.4 3.3 (3.3-5.0) g/dL Pituitary panel 05/27/22 05/28/22 Range/Units 18:43 09:11 Sodium 127 L 123 L* (135-149) mmol/L Potassium 5.8 H 6.0 H (3.6-5.1) mmol/L Chloride 94 L 99 (96-114) mmol/L Carbon Dioxide 23 15 L (20-32) mmol/L BUN 38 H 33 H (7-30) mg/dL Creatinine 1.4 0.9 (0.5-1.5) mg/dL Glucose 110 265 H (60-115) mg/dL Calcium 9.8 8.5 (8.4-10.6) mg/dL Adrenal panel 05/27/22 05/28/22 Range/Units 18:43 09:11 Sodium 127 L 123 L* (135-149) mmol/L Potassium 5.8 H 6.0 H (3.6-5.1) mmol/L Chloride 94 L 99 (96-114) mmol/L Carbon Dioxide 23 15 L (20-32) mmol/L BUN 38 H 33 H (7-30) mg/dL Creatinine 1.4 0.9 (0.5-1.5) mg/dL Glucose 110 265 H (60-115) mg/dL Calcium 9.8 8.5 (8.4-10.6) mg/dL Total Bilirubin 0.8 0.7 (0.1-1.5) mg/dL AST 211 H 124 H (12-35) U/L ALT 398 H 246 H (4-35) U/L Alkaline Phosphatase 334 H 251 H (40-150) U/L Total Protein 7.4 5.8 L (6.0-8.3) g/dL Albumin 4.4 3.3 (3.3-5.0) g/dL All other labs normal. Imaging CT scan - chest: report reviewed and image reviewed (CT scan shows normal caliber small bowel with enhancement. No sign of obstruction or ischemia. No free air or fluid collections.) Assessment and Plan Assessment and plan (1) Adrenal insufficiency: Status: Acute (2) Abnormal liver enzymes: Status: Acute (3) Urinary tract infection: Status: Acute (4) S/P small bowel resection: Status: Acute (5) Ileostomy in place: Status: Acute Plan The patient is an 86-year-old female status post ski fall with resultant pelvic fractures followed by internal hernia with resultant bowel ischemia, laparotomy x2 with resection of distal ileum and now ileostomy. Presented to the emergency department with septic picture, however has improved markedly with antibiotics as well as stress dose steroids. Likely she had a urinary tract infection which may have precipitated adrenal crisis. She looks very good today and has no complaints however her labs would not reflect that. She appears to have a non anion gap metabolic acidosis. Potential causes for this are renal failure, fluid losses from her ileostomy or adrenal insufficiency. She is being treated for adrenal insufficiency and her bicarb is being replaced. Her ileostomy output so far has not been high, however it should be monitored. I recommend an ileostomy diet to include foods that thicken stool such as bananas, cheese, pasta, rice, potatoes, bread, peanut butter and tapioca. Only consume about 4 ounces of fluid with each meal in order not to wash food through small intestine. If stoma output is greater than 1500 mL per day and the dietary changes above do not help, Imodium should be added to be taken as follows: Take 1-2 pills up to 4 times a day, 30 min prior to meals and at bedtime to decrease output overnight. Her caitlyn may be removed by nursing with her next stoma change as the bag is covering part of the wound.
[2022-05-28] MEDS: HYDROCORTISONE SOD SUCCINATE 50 MG/ML inj IVP ×2 (14:04→22:04)
--- NOTE | 2022-05-28 14:38 | PC.NURSE ---
ileostomy bag last changed 05/27/22 per [facility] records.
--- NOTE | 2022-05-28 16:22 | PC.NURSE ---
SHIFT REPORT: PATIENT PLEASANT AND COOPERATIVE, ALERT AND ORIENTED BUT VERY FORGETFUL, ABLE TO FOLLOW COMMANDS, TELE SHOWING NSR, UP TO CHAIR WITH 2A WITH WALKER AND BELT, PATIENT REPORTING NO PAIN AT REST BUT REPORT PAIN IN LEFT KNEE AND ABDOMEN WITH MOVEMENT, BEING MANAGED WITH SCHEDULED MORPHINE, EPPS PATENT AND DRAINING, ILEOSTOMY WITH LIQUID GREEN OUTPUT, ACCORDING TO PATIENT RECORDS FORM [facility] ILEOSTOMY BAG CHANGED 05/27/2022, BAG REMAINS INTACT, MEPILEX TO COCCYX INTACT, UPDATED WILY RETANA VIA PHONE, ALL QUESTIONS ANSWERED.
[2022-05-28 16:28] LABS: Sodium* 125 mmol/L (135-149)
[2022-05-28 16:29] LABS: Potassium* 5.4 mmol/L (3.6-5.1)
--- NOTE | 2022-05-28 17:31 | PC.NURSE ---
ILEOSTOMY BAG CHANGED TODAY.
[2022-05-28] MEDS: OXYCODONE 5 MG TABLET PO (19:22)
[2022-05-28 20:30] LABS: Sodium* 126 mmol/L (135-149)
[2022-05-28 20:31] LABS: Potassium* 5.1 mmol/L (3.6-5.1)
[2022-05-29] VITALS (9 sets, daily range): BP systolic 108–132; BP diastolic 54–79; PULSE 67–94; RESP 16; TEMP 36.4–37; O2SAT 97–100; BMI 16.2
[2022-05-29] MEDS: HEPARIN 5,000 UNIT/0.5 ML INJ 5000 UNIT SUBCUT ×2 (00:08→12:46)
--- NOTE | 2022-05-29 03:50 | PC.NURSE ---
Pt rested well this night. Pain controlled. Pt up A2 and pivot to and from chair. Ostomy producing Loose Brown Stool and gas. [place] patent and draining. Pt pleasant and cooperative and able to answer questions accurately. VS unremarkable.
[2022-05-29] MEDS: LEVOTHYROXINE 75 MCG TABLET PO (06:04)
[2022-05-29] MEDS: HYDROCORTISONE SOD SUCCINATE 50 MG/ML inj IVP (06:05)
[2022-05-29 07:35] LABS: HCO3 VBG 22 mmol/L (21-28); PCO2 VBG 36 mmHG (40-50); pH VBG 7.391 (7.32-7.43)
[2022-05-29 07:39] LABS: Basophils Absolute Auto 0.01 K/uL (0.00-0.30); Basophils Percent Auto 0.1 % (0.0-3.0); Hemoglobin* 8.7 gm/dL (12.0-16.0); Immature Granulocytes Abs Auto 0.05 K/uL (0.00-0.30); Lymphocytes Percent Auto 9.5 % (20-44); Mean Corpuscular HGB Conc 34 gm/dL (32-36); Mean Corpuscular Hemoglobin 31 pg (26-34); Mean Corpuscular Volume 93 fL (80-100); Monocytes Percent Auto 5.4 % (0.0-11.0); Neutrophils Percent Auto 84.4 % (42.0-72.0); Platelet Count* 311 K/uL (140-440); RDW Coefficient of Variation % 16.7 % (11.5-15.5); Red Blood Count 2.79 m/uL (4.00-5.20)
[2022-05-29 07:41] LABS: Slide Review Reflex No
[2022-05-29] MEDS: PIPERACILLIN/TAZOBACTAM 2.25 GM in 0.9 % SODIUM CHLORIDE Mini-bag 100 ML IVPB (07:42)
[2022-05-29 08:08] LABS: Chloride* 102 mmol/L (96-114)
[2022-05-29 08:09] LABS: Potassium* 5.4 mmol/L (3.6-5.1); Sodium* 126 mmol/L (135-149)
[2022-05-29 08:11] LABS: Bilirubin Direct* 0.1 mg/dL (0.0-0.5); Bilirubin Total* 0.5 mg/dL (0.1-1.5); Carbon Dioxide* 18 mmol/L (20-32); Creatinine* 0.8 mg/dL (0.5-1.5); Estimated Glomerular Filt Rate 73 ml/min; Total Protein* 5.4 g/dL (6.0-8.3)
[2022-05-29 08:12] LABS: Alanine Aminotransferase* 192 U/L (4-35); Alkaline Phosphatase* 177 U/L (40-150); Aspartate Amino Transferase* 72 U/L (12-35); Blood Urea Nitrogen* 31 mg/dL (7-30); Calcium* 8.5 mg/dL (8.4-10.6); Glucose* 96 mg/dL (60-115); Magnesium* 1.8 mg/dL (1.5-2.6)
[2022-05-29] MEDS: ASPIRIN 81 MG TABLET EC PO (08:26)
[2022-05-29] MEDS: SODIUM BICARBONATE 650 MG TABLET PO ×3 (08:26→17:51)
[2022-05-29] MEDS: COENZYME Q10 100 MG CAPSULE PO (08:26)
[2022-05-29] MEDS: FAMOTIDINE 20 MG TABLET PO (08:27)
[2022-05-29] MEDS: MAGNESIUM OXIDE 400 MG TABLET PO (08:27)
[2022-05-29] MEDS: ATORVASTATIN CALCIUM 40 MG TABLET PO (08:27)
[2022-05-29 08:28] LABS: Troponin I* < 0.01 ng/mL (0.01-0.04)
[2022-05-29] MEDS: MULTIVITAMIN/MINERALS 1 TABLET 1 TAB PO (08:28)
[2022-05-29] MEDS: HYDROCORTISONE 10 MG TABLET PO (08:34)
[2022-05-29] MEDS: CIPROFLOXACIN 400 MG/200 ML inj IVPB ×2 (10:52→22:07)
[2022-05-29] MEDS: FUROSEMIDE 10 MG/ML inj IV (10:52)
[2022-05-29] MEDS: SODIUM CHLORIDE 0.9 % (FLUSH) 10 ML SYRINGE 5 ML IVF ×2 (10:53→21:03)
--- NOTE | 2022-05-29 15:54 | PM.IMPN1 ---
Progress Note: A&P Assessment and plan (1) Adrenal insufficiency: Status: Acute Plan 1. Presumed Septic Shock vs Adrenal Insufficiency 2. UTI; enterococcus species 3. Hyperkalemia; improving 4. Metabolic Acidosis; improving 5. Type I DM 6. Transaminitis 7. Hx of hypothyroidism 8. Acute on chronic adrenal insufficiency 9. Hx of GERD 10. Hx of Dementia 11. Hyponatremia; multifcatorial high output via ostomy; also drinking ++H20 For today 05/29 -discontinue zosyn resistant 05/29 start cipro based on sensitivity data -f/u UCx -hyperkalemia-IV lasix X1 -NAGMA-sodium bicarb started on 05/28 -hyponatremia fluid restriction; check sodium studies -discontinue stress dose steroids; transition to po hydrocortisone -dc miralax start immodium; monitor ostomy output -repeat potassium this afternoon Code-DNR/DNI DVT ppx-heparin subq Dispo-likely back to [place] 1-2 days pending stable electrolytes Time Spent With Patient Total time spent: 35 minutes Subjective Date Seen: 05/29/22 Interval history: per nursing staff having increased ostomy output also drinking lots of water patient denies abdominal pain denies sob and cough Exam Narrative: Exam Narrative: General appearance: Alert, cooperative, and in no distress HEENT: NCAT EOIM MMM Cardiovascular Heart: Regular rate Gastrointestinal Abdominal: Abdomen is soft. Nontender to palpation. Stoma in place it is on the right abdomen with bilious drainage/output Neurologic: No focal deficits Psychiatric: Alert, cooperative, normal affect. Const: Vital Signs, click to edit/add: Vital Signs - 24 hr 05/28/22 16:00 05/28/22 18:00 05/28/22 19:26 Temperature 97.3 F L 97.9 F 97.6 F Pulse Rate Pulse Rate [Apical ] 87 85 94 Respiratory Rate 16 16 16 Blood Pressure [Ri ght Arm] 105/48 L 113/61 102/59 L Pulse Oximetry 100 96 98 05/28/22 20:45 05/28/22 22:24 05/28/22 22:31 Temperature 97.9 F Pulse Rate 82 82 Pulse Rate [Apical ] 96 Respiratory Rate 16 Blood Pressure [Ri ght Arm] 102/66 Pulse Oximetry 100 05/28/22 22:36 05/28/22 22:55 05/28/22 22:57 Temperature Pulse Rate 82 Pulse Rate [Apical ] 96 Respiratory Rate 16 Blood Pressure [Ri ght Arm] Pulse Oximetry 100 05/28/22 23:06 05/29/22 03:00 05/29/22 07:30 Temperature 98.1 F 97.5 F L 97.6 F Pulse Rate 71 Pulse Rate [Apical ] 95 90 77 Respiratory Rate 16 16 16 Blood Pressure [Ri ght Arm] 108/70 111/79 132/68 Pulse Oximetry 97 97 100 05/29/22 11:00 Temperature 98.3 F Pulse Rate Pulse Rate [Apical ] 81 Respiratory Rate 16 Blood Pressure [Ri ght Arm] 108/54 L Pulse Oximetry 97 Labs Labs: Laboratory Results - last 24 hr 05/28/22 05/28/22 05/29/22 15:58 20:15 07:20 WBC 8.70 RBC 2.79 L Hgb 8.7 L Hct 26.0 L MCV 93 MCH 31 MCHC 34 RDW Coeff of Sharmaine 16.7 H Plt Count 311 Neut % (Auto) 84.4 H Lymph % (Auto) 9.5 L [place] % (Auto) 5.4 Eos % (Auto) 0.0 Baso % (Auto) 0.1 Neut # (Auto) 7.30 H Lymph # (Auto) 0.80 L [place] # (Auto) 0.50 Eos # (Auto) 0.00 Baso # (Auto) 0.01 Abs Immat Gran (auto) 0.05 VBG pH VBG pCO2 VBG pO2 VBG HCO3 Sodium 125 L 126 L Potassium 5.4 H 5.1 Chloride Carbon Dioxide BUN Creatinine Estimated GFR Glucose Calcium Magnesium Total Bilirubin Direct Bilirubin AST ALT Alkaline Phosphatase Troponin I Total Protein Albumin TSH 05/29/22 05/29/22 05/29/22 07:20 07:20 07:20 WBC RBC Hgb Hct MCV MCH MCHC RDW Coeff of Sharmaine Plt Count Neut % (Auto) Lymph % (Auto) [place] % (Auto) Eos % (Auto) Baso % (Auto) Neut # (Auto) Lymph # (Auto) [place] # (Auto) Eos # (Auto) Baso # (Auto) Abs Immat Gran (auto) VBG pH 7.391 VBG pCO2 36 L VBG pO2 55.0 H VBG HCO3 22 Sodium 126 L Potassium 5.4 H Chloride 102 Carbon Dioxide 18 L BUN 31 H Creatinine 0.8 Estimated GFR 73 Glucose 96 Calcium 8.5 Magnesium 1.8 Total Bilirubin 0.5 Direct Bilirubin 0.1 AST 72 H ALT 192 H Alkaline Phosphatase 177 H Troponin I < 0.01 L Total Protein 5.4 L Albumin 3.0 L TSH 1.820
--- NOTE | 2022-05-29 16:42 | PM.EN ---
Chart Event Note Date Seen: 05/29/22 Chart Event Note: 86-year-old female admitted with multiple medical problems including sepsis. Has had progressive anemia. She just had guaiac-positive stool. Stool was yellowish brown. No red blood or melena. Will stop heparin, aspirin and start empiric omeprazole. Serial hemoglobins and vital sign monitoring for evidence of hemodynamic instability or life-threatening anemia.
[2022-05-29 17:11] LABS: Hemoglobin* 8.9 gm/dL (12.0-16.0)
[2022-05-29 17:33] LABS: Potassium* 4.4 mmol/L (3.6-5.1); Sodium* 125 mmol/L (135-149)
--- NOTE | 2022-05-29 17:44 | PC.NURSE ---
PATIENT PLEASANT AND COOPERATIVE, ALERT AND ORIENTED ALTHOUGH FORGETFUL WITH HX OF DEMENTIA, DAUGHTER SPENCER UPDATED VIA PHONE TODAY ALL QUESTIONS ANSWERED, ILEOSTOMY WITH ADEQUATE OUTPUT, GUAIC POSITIVE MD AWARE, EPPS DC'D PER MD ORDER CATHETER INTACT, TOLERATING REGULAR DIET EATING 50-75% OF MEALS, TELE SHOWING NSR TO SINUS ARRHYTHMIA, REPORTING PAIN IN LEFT KNEE WITH MOVEMENT DECLINES PAIN AT REST, MD UPATED NO CHANGES, UP TO CHAIR WITH A2 WALKER AND BELT.
[2022-05-29] MEDS: OMEPRAZOLE 20 MG CAPSULE DR PO (17:51)
[2022-05-29] MEDS: METOPROLOL TARTRATE 25 MG TABLET PO (21:00)
[2022-05-29] MEDS: HYDROCORTISONE 10 MG TABLET 5 MG PO (21:02)
[2022-05-29] MEDS: MELATONIN 3 MG TABLET 6 MG PO (21:09)
--- NOTE | 2022-05-29 21:45 | PC.NURSE ---
Dr Notified of Pt not urinating. Bladder Scan 71cc.
[2022-05-29] MEDS: 0.9 % SODIUM CHLORIDE 250 ml 250 ML IV (22:03)
[2022-05-29] MEDS: LOPERAMIDE HCL 2 MG CAPSULE PO (22:35)
[2022-05-29 23:28] LABS: Hemoglobin* 8.1 gm/dL (12.0-16.0)
[2022-05-30] VITALS (7 sets, daily range): BP systolic 95–124; BP diastolic 51–67; PULSE 58–74; RESP 16; TEMP 35.9–36.6; O2SAT 97–99
[2022-05-30] MEDS: LACTATED RINGERS 1000 ML 1,000 ML 100 ML IV ×2 (00:15→10:03)
--- NOTE | 2022-05-30 03:58 | PC.NURSE ---
Pt rested well this night. VSS. Pt was finally able to void by 0300. Voided 350 at that time. Pleasant and cooperative. Tele Sinus arrhythmia. VSS.
[2022-05-30] MEDS: OMEPRAZOLE 20 MG CAPSULE DR PO (06:04)
[2022-05-30] MEDS: LEVOTHYROXINE 75 MCG TABLET PO (06:04)
[2022-05-30 08:27] LABS: Basophils Absolute Auto 0.01 K/uL (0.00-0.30); Basophils Percent Auto 0.2 % (0.0-3.0); Eosinophils Absolute Auto 0.07 K/uL (0.00-0.50); Eosinophils Percent Auto 1.1 % (0.0-7.0); Hemoglobin* 9.5 gm/dL (12.0-16.0); Immature Granulocytes Abs Auto 0.02 K/uL (0.00-0.30); Lymphocytes Percent Auto 18.8 % (20-44); Mean Corpuscular HGB Conc 33 gm/dL (32-36); Mean Corpuscular Hemoglobin 31 pg (26-34); Mean Corpuscular Volume 94 fL (80-100); Monocytes Percent Auto 8.4 % (0.0-11.0); Neutrophils Absolute Auto 4.51 K/uL (1.7-7.0); Neutrophils Percent Auto 71.2 % (42.0-72.0); Platelet Count* 339 K/uL (140-440); Red Blood Count 3.08 m/uL (4.00-5.20); White Blood Count* 6.33 K/uL (4.50-11.00)
[2022-05-30 08:33] LABS: Slide Review Reflex No
[2022-05-30 08:48] LABS: Albumin* 3.2 g/dL (3.3-5.0); Chloride* 101 mmol/L (96-114)
[2022-05-30 08:49] LABS: Potassium* 4.5 mmol/L (3.6-5.1); Sodium* 128 mmol/L (135-149)
[2022-05-30 08:51] LABS: Carbon Dioxide* 23 mmol/L (20-32); Creatinine* 0.6 mg/dL (0.5-1.5); Est. Creatinine Clearance* 25.73; Estimated Glomerular Filt Rate 88 ml/min; Total Protein* 5.5 g/dL (6.0-8.3)
[2022-05-30 08:52] LABS: Alanine Aminotransferase* 154 U/L (4-35); Alkaline Phosphatase* 213 U/L (40-150); Aspartate Amino Transferase* 50 U/L (12-35); Bilirubin Direct* 0.1 mg/dL (0.0-0.5); Bilirubin Total* 0.4 mg/dL (0.1-1.5); Blood Urea Nitrogen* 28 mg/dL (7-30); Calcium* 8.9 mg/dL (8.4-10.6); Glucose* 184 mg/dL (60-115)
[2022-05-30] MEDS: FAMOTIDINE 20 MG TABLET PO (08:56)
[2022-05-30] MEDS: HYDROCORTISONE 10 MG TABLET PO (08:56)
[2022-05-30] MEDS: ATORVASTATIN CALCIUM 40 MG TABLET PO (08:56)
[2022-05-30] MEDS: SODIUM BICARBONATE 650 MG TABLET PO ×3 (08:57→16:51)
[2022-05-30] MEDS: MAGNESIUM OXIDE 400 MG TABLET PO (08:57)
[2022-05-30] MEDS: METOPROLOL TARTRATE 25 MG TABLET PO ×2 (08:57→20:35)
[2022-05-30] MEDS: COENZYME Q10 100 MG CAPSULE PO (09:00)
[2022-05-30] MEDS: LOPERAMIDE HCL 2 MG CAPSULE PO ×4 (09:00→20:33)
[2022-05-30] MEDS: SODIUM CHLORIDE 0.9 % (FLUSH) 10 ML SYRINGE 5 ML IVF (09:01)
[2022-05-30] MEDS: MULTIVITAMIN/MINERALS 1 TABLET 1 TAB PO (09:05)
[2022-05-30] MEDS: CIPROFLOXACIN 400 MG/200 ML inj IVPB (10:03)
--- NOTE | 2022-05-30 12:20 | CRLHL7_ITS ---
For Patients: As a result of the Cures Act, medical imaging exams and procedure reports are released immediately into your electronic medical record. You may view this report before your referring provider. If you have questions, please contact your health care provider. Indication: Anterior knee pain. No trauma Technique: Two views were acquired Comparison: None Findings: Significantly decreased bone mineral density. Chondrocalcinosis. Significant narrowing of the medial and lateral compartments consistent with osteoarthritis. Relatively mild degenerative changes of the patellofemoral compartment. No visible acute fracture, dislocation or destructive process. No apparent joint effusion. Calcification of the quadriceps tendon is likely related to chronic tendinitis. Impression: Demineralization. Degenerative change. Chondrocalcinosis. 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 No acute fracture, dislocation or destructive process. Dictated by Rao Starks MD @ 05/30/2022 2:37:01 PM (Electronically Signed)
--- NOTE | 2022-05-30 13:42 | PC.NURSE ---
PATIENT PLEASANT AND COOPERATIVE, UP A2 WITH WALKER AND BELT TOLERATING FAIRLY TO CHAIR, REPORTING PAIN IN LEFT KNEE MD UPDATED AND XRAY ORDERED, OUTPUT FROM OSTOMY, TOLERATING REGULAR DIET EATING 75-100% OF MEALS, DAUGHTER SPENCER UPDATED VIA PHONE, MINIMAL URINE OUTPUT MD AWARE SEE ORDERS.
[2022-05-30] MEDS: 0.9 % SODIUM CHLORIDE 1000 ml 1,000 ML 75 ML IV (13:48)
[2022-05-30 13:57] LABS: Urine Osmolality 414 mOsm/kg
--- NOTE | 2022-05-30 14:20 | P.IMPN_ITS ---
Progress Note: A&P Assessment and plan (1) Sepsis: Status: Acute Assessment and Plan: Blood pressures improved. Likely early sepsis from UTI. Broad-spectrum antibiotics were narrowed to ciprofloxacin. Urine culture reviewed. IV Cipro changed to oral Cipro this evening. Blood cultures negative to date. P.o. intake has been much improved. Ostomy output is still high. Urine output has been improved but not normal. Continue IV fluids. (2) UTI (urinary tract infection): Status: Acute Assessment and Plan: Enterobacter species identified. Cultures and sensitivities identified and reviewed - oral Cipro ordered for tonight place of IV Cipro (3) Adrenal insufficiency: Status: Acute Assessment and Plan: Stress dose steroids, IV hydrocortisone 50-100 mg have been ordered and completed. Back to baseline oral hydrocortisone dosing. (4) ABLA (acute blood loss anemia): Status: Acute Assessment and Plan: Was sudden drop in her hemoglobin yesterday from 10-8. She had a positive guaiac. No other obvious bleeding sources noted. However this seemed to spontaneously resolve and her hemoglobin has already increased. Will continue to monitor. 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 Rodriguez (6) Hyponatremia: Status: Acute Assessment and Plan: Chronic. On oral salt tabs. I changed her to normal saline 75 mL an hour from 100 mL of LR. This is improving. (7) S/P small bowel resection: Status: Acute Assessment and Plan: Recent history (8) Left knee pain: Status: Acute Assessment and Plan: X-rays ordered today. Exam is reassuring. Could be spinal stenosis referred pain. Subjective Date Seen: 05/30/22 Interval history: Daily Progress Note - Hospital Medicine Day #:4 CC: UTI/sepsis. Hyponatremia. High output ostomy issues. OVERNIGHT UPDATES FROM STAFF & MED, LAB, IMAGING UPDATES Patient has gradually improved over the week. All of her labs have improved which include her sodium, LFTs. White blood cell count. We have narrowed her antibiotic coverage for her UTI sepsis. Measures have been a little soft. Most recently 95/54. But has been 112-119 over 60s. Afebrile. Pulse normal. Room air. Normal white count History of positive guaiac and hemoglobin dropped. Stabilized today. Hemoglobin 9.5 without transfusion Venous blood gas has improved nicely with less CO2 retention Sodium has improved from 125-128 otherwise normal electrolytes LFTs are down trending Review of Systems: See subjective Cardiac: No new chest pain/pressure/palpitations. Respiratory: no new dyspnea. GI: No abdominal bloating Left knee pain Objective: Vitals: see above Lungs: Clear. Cardiac: S1S2. Left knee: No effusion, no erythema. Point tender over the tibial tuberosity. Disposition/Potential discharge - Likely to return to previous living situation. Total time is 35 minutes with greater than 50% spent in counseling and multimedia services coordinator rdination of care. Exam Const: Vital Signs, click to edit/add: Vital Signs - 24 hr 05/29/22 15:00 05/29/22 19:00 05/29/22 22:09 Temperature 98.6 F 97.6 F 98.6 F Pulse Rate 77 Pulse Rate [Apical ] 94 85 67 Respiratory Rate 16 16 16 Blood Pressure [Ri ght Arm] 121/61 122/68 110/64 Pulse Oximetry 99 99 99 05/29/22 22:52 05/29/22 22:54 05/29/22 22:55 Temperature Pulse Rate 72 Pulse Rate [Apical ] 67 Respiratory Rate 16 Blood Pressure [Ri ght Arm] Pulse Oximetry 99 05/30/22 02:44 05/30/22 07:00 05/30/22 11:00 Temperature 98 F 97.1 F L 97.3 F L Pulse Rate 64 Pulse Rate [Apical ] 67 73 74 Respiratory Rate 16 16 16 Blood Pressure [Ri ght Arm] 112/67 119/60 95/54 L Pulse Oximetry 98 98 99 Labs Labs: Laboratory Results - last 24 hr 05/29/22 05/29/22 05/29/22 07:20 14:20 16:53 WBC RBC Hgb Hct MCV MCH MCHC RDW Coeff of Sharmaine Plt Count Neut % (Auto) Lymph % (Auto) [place] % (Auto) Eos % (Auto) Baso % (Auto) Neut # (Auto) Lymph # (Auto) [place] # (Auto) Eos # (Auto) Baso # (Auto) Abs Immat Gran (auto) Sodium 125 L Potassium 4.4 Chloride Carbon Dioxide BUN Creatinine Estimated Creat Clear Estimated GFR Glucose Calcium Total Bilirubin Direct Bilirubin AST ALT Alkaline Phosphatase Total Protein Albumin TSH Ur Random Osmolality 414 Blood Type O Positive Antibody Screen NEGATIVE Crossmatch ([facility]) See Detail 05/29/22 05/29/22 05/30/22 16:53 23:04 08:01 WBC 6.33 RBC 3.08 L Hgb 8.9 L 8.1 L 9.5 L Hct 29.0 L MCV 94 MCH 31 MCHC 33 RDW Coeff of Sharmaine 17.0 H Plt Count 339 Neut % (Auto) 71.2 Lymph % (Auto) 18.8 L [place] % (Auto) 8.4 Eos % (Auto) 1.1 Baso % (Auto) 0.2 Neut # (Auto) 4.51 Lymph # (Auto) 1.20 [place] # (Auto) 0.50 Eos # (Auto) 0.07 Baso # (Auto) 0.01 Abs Immat Gran (auto) 0.02 Sodium Potassium Chloride Carbon Dioxide BUN Creatinine Estimated Creat Clear Estimated GFR Glucose Calcium Total Bilirubin Direct Bilirubin AST ALT Alkaline Phosphatase Total Protein Albumin TSH Ur Random Osmolality Blood Type Antibody Screen Crossmatch ([facility]) 05/30/22 05/30/22 08:01 08:01 WBC RBC Hgb Hct MCV MCH MCHC RDW Coeff of Sharmaine Plt Count Neut % (Auto) Lymph % (Auto) [place] % (Auto) Eos % (Auto) Baso % (Auto) Neut # (Auto) Lymph # (Auto) [place] # (Auto) Eos # (Auto) Baso # (Auto) Abs Immat Gran (auto) Sodium 128 L Potassium 4.5 Chloride 101 Carbon Dioxide 23 BUN 28 Creatinine 0.6 Estimated Creat Clear 25.73 Estimated GFR 88 Glucose 184 H Calcium 8.9 Total Bilirubin 0.4 Direct Bilirubin 0.1 AST 50 H ALT 154 H Alkaline Phosphatase 213 H Total Protein 5.5 L Albumin 3.2 L TSH 5.050 H Ur Random Osmolality Blood Type Antibody Screen Crossmatch ([facility])
--- NOTE | 2022-05-30 16:40 | PC.SOCIAL ---
Discharge plan: Pt is on bed hold at the [facility] and is expected to return there at discharge. Left message with GRIS Mayer, at the [facility] [phone], informing her of possibility of discharge tomorrow. respite worker to follow up as needed.
[2022-05-30] MEDS: HYDROCORTISONE 10 MG TABLET 5 MG PO (20:32)
[2022-05-30] MEDS: MELATONIN 3 MG TABLET 6 MG PO (20:34)
[2022-05-30] MEDS: CIPROFLOXACIN 250 MG TABLET PO (20:34)
--- NOTE | 2022-05-30 21:39 | PC.NURSE ---
Shift note 15-23: Pt alert, although inconsistent w/ making needs known, has word finding difficulty w/ forgetfulness. Up to chair for meals w/ asst 1 and walker, only c/o L knee pain when standing on. Able to drink fluid and fluids w/o nausea, Imodium dosing helping to thicken stools in ileostomy, 225cc out this shift, uop improved to 500cc. BP's stable. BS 61 @ super, up to 123 after juice/diner, BS 163 @ HS, Insulin held. Plan will be to DC back to [facility] tomorrow.
[2022-05-31] MEDS: 0.9 % SODIUM CHLORIDE 1000 ml 1,000 ML 75 ML IV (02:46)
[2022-05-31 03:00] VITALS: BP 106/56; PULSE 70; RESP 16; TEMP 36.6; O2SAT 98
--- NOTE | 2022-05-31 05:54 | PC.NURSE ---
Shift 7p-7a: Pt. alert, following commands, VSS on RA and Tele. Pt. is very pleasant, uses call light intermittently to make needs known. Pt. repositioned q2h, ileostomy stooling with more thick, formed stool after immodium administration. Ileostomy site C/D/I, stoma reddish pink and moist. Pt. up to BSC for voiding, NS at 75mL/hr. Pt. denies pain, no other complaints at this time. Plan for return to [facility] today
[2022-05-31] MEDS: LEVOTHYROXINE 75 MCG TABLET PO (06:01)
[2022-05-31] MEDS: OMEPRAZOLE 20 MG CAPSULE DR PO (06:01)
[2022-05-31 07:30] VITALS: BP 111/72; PULSE 70; PULSE 80; RESP 16; TEMP 36.4; O2SAT 98
[2022-05-31 07:42] VITALS: PULSE 66
[2022-05-31 08:03] LABS: HCO3 VBG 25 mmol/L (21-28); PCO2 VBG 42 mmHG (40-50); PO2 VBG 35.1 mmHG (25-47); pH VBG 7.389 (7.32-7.43)
[2022-05-31 08:35] LABS: INR 0.93 (0.91-1.10); Prothrombin Time 12.9 Seconds
[2022-05-31 08:38] LABS: Basophils Percent Auto 0.2 % (0.0-3.0); Eosinophils Percent Auto 5.2 % (0.0-7.0); Hematocrit 31.8 % (33.0-51.0); Immature Granulocytes Abs Auto 0.02 K/uL (0.00-0.30); Lymphocytes Percent Auto 27.3 % (20-44); Mean Corpuscular HGB Conc 31 gm/dL (32-36); Mean Corpuscular Hemoglobin 30 pg (26-34); Mean Corpuscular Volume 97 fL (80-100); Monocytes Percent Auto 11.6 % (0.0-11.0); Neutrophils Percent Auto 55.2 % (42.0-72.0); Platelet Count* 323 K/uL (140-440); RDW Coefficient of Variation % 16.8 % (11.5-15.5); Red Blood Count 3.29 m/uL (4.00-5.20); White Blood Count* 4.39 K/uL (4.50-11.00)
[2022-05-31 08:43] LABS: Slide Review Reflex No
[2022-05-31] MEDS: METOPROLOL TARTRATE 25 MG TABLET PO (09:05)
[2022-05-31] MEDS: MULTIVITAMIN/MINERALS 1 TABLET 1 TAB PO (09:05)
[2022-05-31] MEDS: MAGNESIUM OXIDE 400 MG TABLET PO (09:05)
[2022-05-31] MEDS: ATORVASTATIN CALCIUM 40 MG TABLET PO (09:05)
[2022-05-31] MEDS: COENZYME Q10 100 MG CAPSULE PO (09:05)
[2022-05-31] MEDS: SODIUM BICARBONATE 650 MG TABLET PO (09:06)
[2022-05-31] MEDS: LOPERAMIDE HCL 2 MG CAPSULE PO (09:06)
[2022-05-31] MEDS: HYDROCORTISONE 10 MG TABLET PO (09:06)
[2022-05-31] MEDS: FAMOTIDINE 20 MG TABLET PO (09:19)
[2022-05-31] MEDS: CIPROFLOXACIN 250 MG TABLET PO (10:42)
--- NOTE | 2022-05-31 10:48 | PC.SOCIAL ---
Discharge plan: Met with pt who is aware and agrees with plan for discharge today back to the [facility]. With pt's permission, called son, Torey and shared with him the plan for discharge back today at noon. Son appreciated the phone call and information. .
--- NOTE | 2022-05-31 13:14 | PC.NURSE ---
VSS AND AFEBRILE. ILEOSTOMY POUCH LEAKING AROUND EDGE THIS AM AND POUCH CHANGED. UP WITH A1, WALKER AND GAIT BELT. PATIENT REPORTS INCREASED LEFT KNEE PAIN WITH ACTIVITY THAT RESOLVES WITH REST. PATIENT TOLERATING REGULAR DIET WITH NO C/O N/V. REPORT GIVEN GRIS CRABTREE AT [facility]. PATIENT TRANSFERRED TO [facility] VIA [facility].
--- NOTE | 2022-05-31 17:26 | PM.DS1 ---
DS: Providers Provider Date Seen: 05/31/22 Date of admission: 05/27/22 22:11 Primary care physician: Onur Schreiber MD Admitting Clinician: Adriel Rodriguez MD Consults: 05/29/22 15:32 Consult to Physical Therapy [CONS] Routine Comment: Reason(s) for PT Consult:: Evaluate and Treat Any Restrictions?:: Unknown 05/29/22 15:33 Consult to Occupational Therapy [CONS] Routine Comment: Reason(s) for OT Consult:: Evaluate and Treat Any Restrictions?:: Unknown Attending Physician on discharge: Leigh Ann Reaves MD [facility] Date of Discharge: 05/31/22 DS: Diagnosis Discharge Diagnosis (1) Sepsis: Status: Acute Problem details: Patient appeared septic on presentation. Source was enterobacter cystitis. Patient discharged on Cipro. (2) UTI (urinary tract infection): Status: Acute Problem details: Urine culture finalized. Cipro is sensitive. (3) Ileostomy in place: Status: Acute Problem details: Ileostomy has been present for about a month. High output likely was causing some of her electrolyte issues and metabolic acidosis. (4) High output ileostomy: Status: Acute Problem details: Imodium seem to be effective for this. (5) Adrenal insufficiency: Status: Acute Problem details: She received stress dose steroids, return to her normal dose of hydrocortisone (6) Left knee pain: Status: Acute Problem details: Mobility was impaired. Left knee x-ray was normal. Likely osteoarthritis DS: Summary Hospital Course Hospital Course: HOSPITALIST DISCHARGE SUMMARY ATTENDING PHYSICIAN: Leigh Ann Reaves MD FINAL DIAGNOSIS: Sepsis, UTI is the source Hyponatremia, acute on chronic Adrenal insufficiency High output in her ostomy causing a metabolic acidosis HOSPITAL FOLLOWUP ISSUES: 1. Follow-up on her sodium. We had at normal at on day of discharge. She was received being sodium bicarb, Imodium. 2. Ostomy output/urine output measure I and O's help prevent dehydration, sepsis,hypotension and acidosis REFERRALS WHILE ADMITTED: None REFERRALS AFTER DISCHARGE: None BRIEF HOSPITAL COURSE: Becca was septic upon arrival. We felt her source was likely related to UTI. Her blood cultures were negative. She rallied quite well with IV antibiotics and fluids. Her urine culture dictated that we use Cipro for her antibiotic. She was having some high output in her ostomy, this was likely causing hypotension, weakness and electrolyte abnormalities. These were all corrected during her stay. Becca is a chronically ill patient with multiple medications and medical problems. However she was alert and cooperative by the end of her stay. VITAL SIGN, MEDICATION, LAB/MICRO, IMAGING SUMMARY (full details available in account tabs or by records request) DISCHARGE MEDICATIONS: See Reconciled list REVIEW OF SYSTEMS No new chest pain or dyspnea Pain controlled No voiding difficulties Tolerating diet challenge PHYSICAL EXAM: CONSTITUTIONAL: VITAL SIGNS: see record. HEENT: Normocephalic, atraumatic. PERRL, EOMI, conjunctivae pink, no scleral icterus. Ears and nose externally normal. Pharynx normal. NECK: No JVD. No carotid bruit, no thyromegaly, no adenopathy. CHEST: Clear to auscultation bilaterally. HEART: S1 and S2 normal. Edema ABDOMEN: Soft, nontender. Normal bowel sounds. MUSCULOSKELETAL: No gross joint deformity or swelling. NEURO: Cranial nerves intact. Grossly intact. No asymmetric findings. SKIN: No rashes, petechiae, concerning changes PSYCHIATRIC: Mood euthymic. DISPOSITION: Return to custodial facility Time spent on discharge 37 minutes. Time spent discussing smoking cessation with patient: more than 10 minutes Status at Discharge Overall status at discharge: patient is back to baseline Time Spent with Patient Time attestation: Total time spent providing and/or coordinating discharge services: Time spent: Greater than 30 minutes Exam Const: Vital Signs, click to edit/add: Vital Signs - 24 hr 05/30/22 19:00 05/30/22 23:00 05/31/22 03:00 Temperature 97.7 F 97.9 F 97.9 F Pulse Rate 58 L Pulse Rate [Apical ] 72 63 70 Respiratory Rate 16 16 16 Blood Pressure [Ri ght Arm] 124/51 L 106/59 L 106/56 L Pulse Oximetry 98 98 98 05/31/22 07:30 05/31/22 07:42 Temperature 97.5 F L Pulse Rate 66 Pulse Rate [Apical ] 80 Respiratory Rate 16 Blood Pressure [Ri ght Arm] 111/72 Pulse Oximetry 98 DS: Data Data Completed and Pending Completed studies during hospitalization: Procedures Drainage of Stomach with Drainage Device, Via Natural or Artificial Opening (05/02/22) Insertion of Infusion Device into Left Internal Jugular Vein, Percutaneous Approach (05/02/22) Labs on day of discharge: Labs from last 24 hours 05/31/22 05/31/22 05/31/22 07:36 07:36 07:36 WBC 4.39 L RBC 3.29 L Hgb 10.0 L Hct 31.8 L MCV 97 MCH 30 MCHC 31 L RDW Coeff of Sharmaine 16.8 H Plt Count 323 Neut % (Auto) 55.2 Lymph % (Auto) 27.3 [place] % (Auto) 11.6 H Eos % (Auto) 5.2 Baso % (Auto) 0.2 Neut # (Auto) 2.40 Lymph # (Auto) 1.20 [place] # (Auto) 0.50 Eos # (Auto) 0.20 Baso # (Auto) 0.00 Abs Immat Gran (auto) 0.02 INR VBG pH 7.389 VBG pCO2 42 VBG pO2 35.1 VBG HCO3 25 Sodium 137 Potassium 3.9 Chloride 105 Carbon Dioxide 26 BUN 10 Creatinine 0.6 Estimated Creat Clear 25.73 Estimated GFR 88 Glucose 96 Serum Osmolality Calcium 9.2 Magnesium 1.5 Total Bilirubin < 0.1 L Direct Bilirubin AST 25 ALT 21 Alkaline Phosphatase 69 NT-Pro-B Natriuret Pep 53 Total Protein 7.0 Albumin 3.9 05/31/22 05/29/22 07:36 16:53 WBC RBC Hgb Hct MCV MCH MCHC RDW Coeff of Sharmaine Plt Count Neut % (Auto) Lymph % (Auto) [place] % (Auto) Eos % (Auto) Baso % (Auto) Neut # (Auto) Lymph # (Auto) [place] # (Auto) Eos # (Auto) Baso # (Auto) Abs Immat Gran (auto) INR 0.93 VBG pH VBG pCO2 VBG pO2 VBG HCO3 Sodium Potassium Chloride Carbon Dioxide BUN Creatinine Estimated Creat Clear Estimated GFR Glucose Serum Osmolality 272 L Calcium Magnesium Total Bilirubin Direct Bilirubin AST ALT Alkaline Phosphatase NT-Pro-B Natriuret Pep Total Protein Albumin Preliminary micro results at discharge 05/27/22 20:35 Blood Culture - Preliminary Blood NO GROWTH AFTER 72 HOURS Discharge Plan Discharge Disposition: [facility] Date of Admission: 05/27/22 22:11 Attending Provider on Discharge: Leigh Ann Reaves Primary Care Provider: Onur Schreiber Condition: Unchanged Anticipated Discharge Date/Time: 05/29/22 14:34 Discharge Medications: New ciprofloxacin HCl 250 mg Tablet 250 mg PO 1000,2200 Qty: 14 0RF loperamide 2 mg Capsule 2 mg PO QID Qty: 60 0RF Rx Instructions: hold for formed thick stool in ostomy sodium bicarbonate 650 mg Tablet 650 mg PO BIDWMEAL Qty: 60 0RF Continued acetaminophen 500 mg capsule 1,000 mg PO QID PRN0RF ondansetron HCl 4 mg tablet 4 mg PO Q6H PRN0RF melatonin 3 mg tablet 6 mg PO HS 0RF metoprolol tartrate 25 mg tablet 25 mg PO BID 0RF morphine concentrate 100 mg/5 mL (20 mg/mL) solution 5 - 20 mg PO Q1H PRN0RF simethicone 80 mg tablet,chewable 80 mg PO BID PRN0RF hydrocortisone 5 mg tablet 5 - 10 mg PO BID 0RF Label Comments: TAKE 2 TABS (10MG) BY MOUTH IN THE MORNING;TAKE 1 TAB BY MOUTH IN THE EVENING atorvastatin 40 mg tablet 40 mg PO DAILY 0RF aspirin 81 mg tablet,delayed release (DR/EC) 81 mg PO DAILY 0RF levothyroxine 75 mcg tablet 75 mcg PO DAILY 0RF famotidine 20 mg tablet 20 mg PO BID 0RF calcitonin (salmon) 200 unit/actuation spray,non-aerosol 1 spray intranasal (ALT) DAILY 0RF morphine 15 mg tablet extended release 15 mg PO TID 0RF estradiol 0.01 % (0.1 mg/gram) cream 1 appful VAGINAL .FRIDAY,FRIDAY 0RF magnesium oxide 250 mg magnesium tablet 250 mg PO DAILY 0RF insulin lispro [Humalog KwikPen Insulin] 100 unit/mL insulin pen 2 - 5 unit SUBCUT TIDWM 0RF Label Comments: INJECT 2 UNITS SUBQ WITH BREAKFAST PLUS SLIDING SCALE;INJECT 5 UNITS SUBQ WITH LUNCH PLUS SLIDING SCALE;INJECT 4 UNITS SUBQ WITH SUPPER PLUS coenzyme Q10 100 mg capsule 100 mg PO DAILY 0RF olopatadine 0.2 % drops 1 drp ophthalmic (eye) DAILY 0RF insulin glargine [Lantus Solostar U-100 Insulin] 100 unit/mL (3 mL) insulin pen 13 unit SUBCUT DAILY 0RF cholecalciferol (vitamin D3) 50 mcg (2,000 unit) tablet 4,000 unit PO DAILY 0RF Women's One Daily 18 mg iron-400 mcg-500 mg Ca tablet 1 tab PO DAILY 0RF polyethylene glycol 3350 17 gram/dose powder 17 g PO DAILY 0RF vitamin B complex [Vitamins B Complex] Capsule 1 cap PO DAILY 0RF oxycodone 5 mg tablet 5 mg PO Q6H PRN0RF Probiotic 3 billion cell capsule 3,000 mmu cells PO DAILY 0RF Rx Instructions: administer with a meal Discharge Orders: Discharge Order (Routine); Ordered 05/31/22 Ordered By: Leigh Ann Reaves Activity Level: Activity as Tolerated Discharge Diet: Regular Follow Up Appointments: Onur Schreiber MD [Primary Care Provider] -
[2022-06-01 08:49] LABS: Albumin* 3.1 g/dL (3.3-5.0); Aspartate Amino Transferase* 75 U/L (12-35); Bilirubin Direct* 0.2 mg/dL (0.0-0.5); Bilirubin Total* 0.4 mg/dL (0.1-1.5); Blood Urea Nitrogen* 16 mg/dL (7-30); Calcium* 8.6 mg/dL (8.4-10.6); Carbon Dioxide* 21 mmol/L (20-32); Chloride* 106 mmol/L (96-114); Creatinine* 0.5 mg/dL (0.5-1.5); Est. Creatinine Clearance* 25.73; Estimated Glomerular Filt Rate 92 ml/min; Glucose* 114 mg/dL (60-115); Potassium* 4.5 mmol/L (3.6-5.1); Sodium* 132 mmol/L (135-149); Total Protein* 5.5 g/dL (6.0-8.3)
[2022-06-01 08:50] LABS: Alanine Aminotransferase* 129 U/L (4-35); Alkaline Phosphatase* 173 U/L (40-150); Magnesium* 1.6 mg/dL (1.5-2.6); NT Pro B Type NatriureticPept* 1480 PG/mL (0-450)
== END 2022-05-31 12:00 | DRG 720 ==
LOC: ED 21:53 → MEDSURG 05-28 00:04
PROVIDERS: Family Medicine; Hospitalist; Admitting Provider Family Medicine; Emergency Provider Family Medicine; PCP Family Medicine; Visit Provider Family Medicine
DX: A41.9 Sepsis, unspecified organism (principal); Z90.49 Acquired absence of other specified parts of digestive tract; N39.0 Urinary tract infection, site not specified; B95.2 Enterococcus as the cause of diseases classified elsewhere; R65.21 Severe sepsis with septic shock; E27.40 Unspecified adrenocortical insufficiency; E87.5 Hyperkalemia; E87.1 Hypo-osmolality and hyponatremia; E86.0 Dehydration; G89.29 Other chronic pain; R10.9 Unspecified abdominal pain; M54.9 Dorsalgia, unspecified; M81.0 Age-related osteoporosis without current pathological fracture; F03.90 Unspecified dementia, unspecified severity, without behavioral disturbance, psychotic disturbance, mood disturbance, and anxiety; R74.01 Elevation of levels of liver transaminase levels; I12.9 Hypertensive chronic kidney disease with stage 1 through stage 4 chronic kidney disease, or unspecified chronic kidney disease; E10.22 Type 1 diabetes mellitus with diabetic chronic kidney disease; N18.31 Chronic kidney disease, stage 3a; N17.9 Acute kidney failure, unspecified; Z79.4 Long term (current) use of insulin; I25.10 Atherosclerotic heart disease of native coronary artery without angina pectoris; Z93.2 Ileostomy status; L89.150 Pressure ulcer of sacral region, unstageable; D62 Acute posthemorrhagic anemia; M25.562 Pain in left knee; F41.9 Anxiety disorder, unspecified; K21.9 Gastro-esophageal reflux disease without esophagitis; E03.9 Hypothyroidism, unspecified; E78.5 Hyperlipidemia, unspecified
CPT/HCPCS: 36415; 51798; 71045; 73560; 74177; 80048; 80053; 80076; 81001; 82803; 82947; 83605; 83735; 83880; 83930; 83935; 84132; 84295; 84443; 84484; 85018; 85025; 85027; 85610; 85651; 86140; 86850; 86900; 86901; 86922; 87040; 87086; 87186; 87635; 93005; 94761; 97110; 97116; 97162; 97165; 97530; 97535; 99284; 99285; A9153; A9270; J0610; J0696; J0744; J1644; J1720; J1940; J2543; J3370; J7030; J7050; J7120; Q9967

== ENCOUNTER 2022-06-25 11:10 | Outpatient (REF) | payer BC, SELFPAY ==
[2022-06-25 16:09] LABS: Sodium* 126 mmol/L (135-149)
== END 2022-06-25 11:11 | disposition home or self-care (01) ==
LOC: NPINS 11:10
PROVIDERS: PCP Family Medicine; Visit Provider Nurse Practitioner Gerontology
DX: I10 Essential (primary) hypertension (principal); E10.21 Type 1 diabetes mellitus with diabetic nephropathy; E87.1 Hypo-osmolality and hyponatremia
CPT/HCPCS: 84295

== ENCOUNTER 2022-06-27 12:15 | Outpatient (REF) | payer BC, SELFPAY ==
[2022-06-27 12:57] LABS: Chloride* 90 mmol/L (96-114)
[2022-06-27 13:00] LABS: Carbon Dioxide* 27 mmol/L (20-32); Estimated Glomerular Filt Rate 55 ml/min
[2022-06-27 13:01] LABS: Blood Urea Nitrogen* 37 mg/dL (7-30); Calcium* 9.3 mg/dL (8.4-10.6); Glucose* 168 mg/dL (60-115); Magnesium* 1.8 mg/dL (1.5-2.6)
[2022-06-27 13:07] LABS: Sodium* 124 mmol/L (135-149)
[2022-06-27 14:18] LABS: C.Difficile Negative (Negative); CDIFFEPI 027 PRESUMPTIVE NEGATIVE (Negative)
== END 2022-06-27 12:16 | disposition home or self-care (01) ==
LOC: NPINS 12:15
PROVIDERS: PCP Family Medicine; Visit Provider Family Medicine
DX: E87.1 Hypo-osmolality and hyponatremia (principal)
CPT/HCPCS: 80048; 83735; 87045; 87046; 87427; 87493

== ENCOUNTER 2022-06-28 09:00 | Outpatient (REF) | payer BC, SELFPAY ==
[2022-06-28 11:31] LABS: Chloride* 89 mmol/L (96-114)
[2022-06-28 11:32] LABS: Potassium* 5.5 mmol/L (3.6-5.1)
[2022-06-28 11:34] LABS: Estimated Glomerular Filt Rate 55 ml/min; Sodium* 125 mmol/L (135-149)
[2022-06-28 11:35] LABS: Blood Urea Nitrogen* 35 mg/dL (7-30); Calcium* 9.8 mg/dL (8.4-10.6); Carbon Dioxide* 25 mmol/L (20-32); Glucose* 105 mg/dL (60-115)
== END 2022-06-28 09:01 | disposition home or self-care (01) ==
LOC: NPINS 09:00
PROVIDERS: PCP Family Medicine; Visit Provider Family Medicine
DX: E87.1 Hypo-osmolality and hyponatremia (principal)
CPT/HCPCS: 80048

== ENCOUNTER 2022-07-01 09:17 | Outpatient (REF) | payer BC, SELFPAY ==
[2022-07-01 10:11] LABS: Chloride* 95 mmol/L (96-114); Potassium* 5.6 mmol/L (3.6-5.1); Sodium* 127 mmol/L (135-149)
[2022-07-01 10:14] LABS: Blood Urea Nitrogen* 39 mg/dL (7-30); Calcium* 9.3 mg/dL (8.4-10.6); Carbon Dioxide* 27 mmol/L (20-32); Creatinine* 0.8 mg/dL (0.5-1.5); Estimated Glomerular Filt Rate 72 ml/min; Glucose* 129 mg/dL (60-115)
== END 2022-07-01 09:18 | disposition home or self-care (01) ==
LOC: NPINS 09:17
PROVIDERS: PCP Family Medicine; Visit Provider Nurse Practitioner Gerontology
DX: E87.1 Hypo-osmolality and hyponatremia (principal); N18.31 Chronic kidney disease, stage 3a; I10 Essential (primary) hypertension; E10.21 Type 1 diabetes mellitus with diabetic nephropathy
CPT/HCPCS: 80048

== ENCOUNTER 2022-07-03 14:17 | Outpatient (REF) | payer BC, SELFPAY ==
[2022-07-03 15:27] LABS: Chloride* 90 mmol/L (96-114); Sodium* 127 mmol/L (135-149)
[2022-07-03 15:30] LABS: Blood Urea Nitrogen* 34 mg/dL (7-30); Carbon Dioxide* 29 mmol/L (20-32); Creatinine* 0.9 mg/dL (0.5-1.5); Estimated Glomerular Filt Rate 63 ml/min; Glucose* 97 mg/dL (60-115)
[2022-07-03 15:31] LABS: Calcium* 9.3 mg/dL (8.4-10.6)
== END 2022-07-03 14:18 | disposition home or self-care (01) ==
LOC: NPINS 14:17
PROVIDERS: PCP Family Medicine; Visit Provider Nurse Practitioner Gerontology
DX: E10.43 Type 1 diabetes mellitus with diabetic autonomic (poly)neuropathy (principal); N18.31 Chronic kidney disease, stage 3a; E87.1 Hypo-osmolality and hyponatremia; E87.5 Hyperkalemia; I10 Essential (primary) hypertension
CPT/HCPCS: 80048

== ENCOUNTER 2022-07-10 07:34 | Outpatient (REF) | payer BC, SELFPAY ==
[2022-07-10 08:06] LABS: Chloride* 93 mmol/L (96-114)
[2022-07-10 08:07] LABS: Potassium* 5.4 mmol/L (3.6-5.1); Sodium* 126 mmol/L (135-149)
[2022-07-10 08:09] LABS: Creatinine* 0.8 mg/dL (0.5-1.5); Estimated Glomerular Filt Rate 72 ml/min
[2022-07-10 08:10] LABS: Blood Urea Nitrogen* 40 mg/dL (7-30); Calcium* 9.4 mg/dL (8.4-10.6); Carbon Dioxide* 27 mmol/L (20-32); Glucose* 128 mg/dL (60-115)
== END 2022-07-10 07:35 | disposition home or self-care (01) ==
LOC: NPINS 07:34
PROVIDERS: PCP Family Medicine; Visit Provider Family Medicine
DX: E10.43 Type 1 diabetes mellitus with diabetic autonomic (poly)neuropathy (principal); N18.31 Chronic kidney disease, stage 3a; E87.5 Hyperkalemia; E87.1 Hypo-osmolality and hyponatremia; I10 Essential (primary) hypertension
CPT/HCPCS: 80048

== ENCOUNTER 2022-07-16 10:35 | Outpatient (REF) | payer BC, SELFPAY ==
[2022-07-16 11:25] LABS: Chloride* 94 mmol/L (96-114); Sodium* 127 mmol/L (135-149)
[2022-07-16 11:28] LABS: Carbon Dioxide* 24 mmol/L (20-32); Creatinine* 0.9 mg/dL (0.5-1.5); Estimated Glomerular Filt Rate 63 ml/min
[2022-07-16 11:29] LABS: Blood Urea Nitrogen* 47 mg/dL (7-30); Calcium* 9.7 mg/dL (8.4-10.6); Glucose* 90 mg/dL (60-115)
== END 2022-07-16 10:36 | disposition home or self-care (01) ==
LOC: NPINS 10:35
PROVIDERS: PCP Family Medicine; Visit Provider Family Medicine
DX: E10.21 Type 1 diabetes mellitus with diabetic nephropathy (principal); E87.5 Hyperkalemia; I10 Essential (primary) hypertension; E87.1 Hypo-osmolality and hyponatremia
CPT/HCPCS: 80048

== ENCOUNTER 2022-07-19 11:03 | Outpatient (REF) | payer BC, SELFPAY ==
[2022-07-19 11:56] LABS: Chloride* 92 mmol/L (96-114); Potassium* 5.7 mmol/L (3.6-5.1); Sodium* 127 mmol/L (135-149)
[2022-07-19 11:58] LABS: Creatinine* 1.1 mg/dL (0.5-1.5); Estimated Glomerular Filt Rate 49 ml/min
[2022-07-19 11:59] LABS: Blood Urea Nitrogen* 46 mg/dL (7-30); Calcium* 9.4 mg/dL (8.4-10.6); Carbon Dioxide* 29 mmol/L (20-32); Glucose* 156 mg/dL (60-115)
== END 2022-07-19 11:04 | disposition home or self-care (01) ==
LOC: NPINS 11:03
PROVIDERS: PCP Family Medicine; Visit Provider Family Medicine
DX: E10.21 Type 1 diabetes mellitus with diabetic nephropathy (principal); E87.5 Hyperkalemia; E87.1 Hypo-osmolality and hyponatremia; I10 Essential (primary) hypertension
CPT/HCPCS: 80048

== ENCOUNTER 2022-07-22 17:38 | Outpatient (CLI) | payer BC, SELFPAY | END 2022-07-22 17:39 | disposition home or self-care (01) | LOC: AMB 08-20 15:53 | PROVIDERS: PCP Family Medicine; Visit Provider Emergency Medicine Emergency Medical Services | DX: R41.82 Altered mental status, unspecified (principal); R56.9 Unspecified convulsions | CPT/HCPCS: A0425; A0427 ==

== ENCOUNTER 2022-07-22 17:55 | Emergency (ER) | payer BC, SELFPAY ==
[2022-07-22 18:03] VITALS: BP 144/80; PULSE 101; RESP 28; TEMP 37; O2SAT 100
--- NOTE | 2022-07-22 18:13 | CRLHL7_ITS ---
For Patients: As a result of the Century Cures Act, medical imaging exams and procedure reports are released immediately into your electronic medical record. You may view this report before your referring provider. If you have questions, please contact your health care provider. INDICATION: Altered mental status. TECHNIQUE: CT head without contrast. COMPARISON: CT head dated 04/06/2022. FINDINGS: Cerebral parenchyma: No evidence of acute territorial infarct. No acute intraparenchymal hemorrhage. Stable punctate basal ganglia calcifications. No significant mass effect/midline shift. Normal [place]-white matter differentiation. Extra-axial spaces: No extra-axial collection or hemorrhage. Ventricles: Unremarkable. Calvarium: Intact. Visualized paranasal sinuses/mastoid air cells: Grossly clear. Posterior fossa: No cerebellar tonsillar herniation. Visualized orbits: Thinning of the bilateral lens. No acute abnormality. IMPRESSION: No acute intracranial abnormality. Please note that all CT scans at this facility use dose modulation, iterative reconstruction, and/or weight-based dosing when appropriate to reduce radiation dose to as low as reasonably achievable. Dictated by Cindy De Anda MD @ 07/22/2022 6:41:19 PM (Electronically Signed)
--- NOTE | 2022-07-22 18:14 | CRLHL7_ITS ---
For Patients: As a result of the Century Cures Act, medical imaging exams and procedure reports are released immediately into your electronic medical record. You may view this report before your referring provider. If you have questions, please contact your health care provider. INDICATION: AMS TECHNIQUE: Single view chest. FINDINGS: Suboptimal study with overpenetration of the film. Normal cardiac mediastinal silhouette. Apical pleural thickening. Lungs appear clear. Dictated by Aleida Humphrey MD @ 07/22/2022 7:24:57 PM (Electronically Signed)
--- NOTE | 2022-07-22 18:15 | ED.AMS ---
HPI - Altered Mental Status General Chief Complaint: Altered Mental Status Stated Complaint: stroke Time Seen by Provider: 07/22/22 18:05 History of Present Illness HPI narrative: This patient comes [facility] where it was reported that she had a seizure for 20-30 seconds. After this she had some unintelligible speech. Her son is present with her at this time in the emergency department who states that she had similar symptoms like this in the past related to urinary tract infection. She does have a prior history of a seizure also. At the time of her arrival she is not complaining of any pain. She is not showing any unilateral or stroke-like symptoms. Her speech is understandable. When asked to perform certain maneuvers in neurologic test she says yes she will do so but then does not follow the command. She is DNR DNI. Related Data Home Medications Medication Instructions Recorded Confirmed aspirin 81 mg tablet,delayed 81 mg PO DAILY 05/02/22 07/22/22 release atorvastatin 40 mg tablet 40 mg PO DAILY 05/02/22 07/22/22 calcitonin (salmon) 200 1 spray intranasal (ALT) DAILY 05/02/22 07/22/22 unit/actuation nasal spray cholecalciferol (vitamin D3) 50 4,000 unit PO DAILY 05/02/22 07/22/22 mcg (2,000 unit) tablet coenzyme Q10 100 mg capsule 100 mg PO DAILY 05/02/22 07/22/22 estradiol 0.01% (0.1 mg/gram) 1 appful vaginal .FRIDAY,Friday05/02/22 07/22/22 vaginal cream famotidine 20 mg tablet 20 mg PO BID 05/02/22 07/22/22 hydrocortisone 5 mg tablet 5 - 10 mg PO BID 05/02/22 07/22/22 insulin glargine 100 unit/mL (3 13 unit subcut DAILY 05/02/22 07/22/22 mL) subcutaneous pen (Lantus Solostar U-100 Insulin) insulin lispro 100 unit/mL 2 - 5 unit subcut TIDWM 05/02/22 07/22/22 subcutaneous pen (Humalog KwikPen (U-100) Insulin) lactobacillus combination no.4 3 3,000 mmu cells PO DAILY 05/02/22 07/22/22 billion cell capsule (Probiotic) levothyroxine 75 mcg tablet 75 mcg PO DAILY 05/02/22 07/22/22 magnesium oxide 250 mg PO DAILY 05/02/22 07/22/22 morphine 15 mg tablet,extended 15 mg PO TID 05/02/22 07/22/22 release multivit-iron 18 mg-folic acid 400 1 tab PO DAILY 05/02/22 07/22/22 mcg-calcium 500 mg-minerals tablet (Women's One Daily) olopatadine 0.2 % eye drops 1 drp ophthalmic (eye) DAILY 05/02/22 07/22/22 oxycodone 5 mg tablet 5 mg PO Q6H PRN 05/02/22 07/22/22 polyethylene glycol 3350 17 17 g PO DAILY 05/02/22 07/22/22 gram/dose oral powder vitamin B complex (Vitamins B 1 cap PO DAILY 05/02/22 07/22/22 Complex capsule) acetaminophen 500 mg capsule 1,000 mg PO QID PRN 05/28/22 07/22/22 melatonin 3 mg tablet 6 mg PO HS 05/28/22 07/22/22 metoprolol tartrate 25 mg tablet 25 mg PO BID 05/28/22 07/22/22 morphine concentrate 100 mg/5 mL 5 - 20 mg PO Q1H PRN 05/28/22 07/22/22 (20 mg/mL) oral solution ondansetron HCl 4 mg tablet 4 mg PO Q6H PRN 05/28/22 07/22/22 simethicone 80 mg chewable tablet 80 mg PO BID PRN 05/28/22 07/22/22 Previous Rx's Medication Instructions Recorded ciprofloxacin HCl 250 mg tablet 250 mg PO 1000,2200 #14 tabs 05/31/22 loperamide 2 mg capsule 2 mg PO QID #60 caps 05/31/22 sodium bicarbonate 650 mg tablet 650 mg PO BIDWMEAL #60 tabs 05/31/22 cephalexin 500 mg capsule 500 mg PO TID 7 days #21 caps 07/22/22 Allergies Allergy/AdvReac Type Severity Reaction Status Date / Time adhesive tape Allergy Mild Rash Verified 07/22/22 18:17 diclofenac Allergy Unknown Verified 07/22/22 18:17 aspartame Allergy Verified 07/22/22 18:17 beclomethasone Allergy Verified 07/22/22 18:17 bisacodyl Allergy Verified 07/22/22 18:17 dexamethasone Allergy Verified 07/22/22 18:17 doxycycline Allergy Verified 07/22/22 18:17 erythromycin base Allergy Verified 07/22/22 18:17 gabapentin Allergy Verified 07/22/22 18:17 hydrochlorothiazide Allergy Verified 07/22/22 18:17 lactase [From Dairy Aid] Allergy Verified 07/22/22 18:17 meclizine Allergy Verified 07/22/22 18:17 metformin Allergy Verified 07/22/22 18:17 metoclopramide Allergy Verified 07/22/22 18:17 nabumetone [From Relafen] Allergy Verified 07/22/22 18:17 propranolol Allergy Verified 07/22/22 18:17 raloxifene Allergy Verified 07/22/22 18:17 ramipril Allergy Verified 07/22/22 18:17 tobramycin Allergy Verified 07/22/22 18:17 venlafaxine Allergy Verified 07/22/22 18:17 Review of Systems Status of ROS: Reports: 10 or more systems reviewed and unremarkable except as noted in History and below Narrative: Unable to obtain due to mental status. [facility] Medical History (Updated 07/22/22 @ 20:32 by Vicente Lopez MD) Abnormal liver enzymes Adrenal insufficiency Anxiety Asthma Atherosclerotic cardiovascular disease Cataract Chronic kidney disease (CKD) stage G3a/A1, moderately decreased glomerular filtration rate (GFR) between 45-59 mL/min/1.73 square meter and albuminuria creatinine ratio less than 30 mg/g Constipation Convulsions Dementia Diabetes mellitus type 1 Dorsalgia GERD (gastroesophageal reflux disease) Health care directive on file High output ileostomy Hyperkalemia Hyperlipidemia Hyponatremia Hypothyroidism Osteoarthritis Pelvic fracture POLST (Physician Orders for Life-Sustaining Treatment) Postmenopausal atrophic vaginitis Pressure ulcer of sacral region, unstageable Primary adrenocortical insufficiency Primary hypertension Type 1 diabetes mellitus Unspecified dementia without behavioral disturbance Vertebral fracture Surgical History (Updated 06/04/22 @ 00:01 by ) H/O angioplasty H/O mastoidectomy No significant past surgical history S/P appendectomy S/P laparoscopic cholecystectomy S/P small bowel resection Social History (Updated 05/02/22 @ 17:42 by Evita Mccracken MD) Narrative: Patient lives in a [facility]. Highest level of school completed/degree received: don't know Smoking Status: Never smoker Do you use any of these nicotine containing products: None Second hand tobacco smoke exposure: No How often do you have a drink containing alcohol: never How often do you have six or more drinks on one occasion: Never AUDIT-C Alcohol total score: 0 Non-prescribed substance use: denies use Caffeine: No service: No Exam Narrative: Exam Narrative: Constitutional: Well-developed, well-nourished, no acute distress. HEENT: Normocephalic, atraumatic. Neck: Normal range of motion. Nontender. Supple. Heart: Regular. No murmurs. Normal rate. Intact distal pulses. Lungs: Clear to auscultation. No chest discomfort. No wheezes, rhonchi, or rales. Abdomen: Normal bowel sounds. Nontender. No rebound tenderness. Genitalia: Deferred. Back: No midline tenderness. Normal range of motion. Extremities: Normal range of motion. No injury. Skin: Intact. No rash. Warm. No erythema or pallor. Neurologic: No altered sensation. No weakness. Alert. No facial asymmetry. Automat Watcher strength is equal bilaterally. Tongue is midline. Psychiatric: No suicidality. No anxiety or depression. No insomnia. Nursing notes and vitals signs are reviewed. Const: Vital Signs, click to edit/add: Vital Signs - 24 hr 07/22/22 18:03 07/22/22 19:07 07/22/22 19:47 Temperature 98.6 F Pulse Rate [Pulse Oximeter] 101 H 89 75 Respiratory Rate 28 H 28 H 22 Blood Pressure [Ri ght Upper Arm] 144/80 H 129/73 120/62 Pulse Oximetry 100 99 98 Oxygen Delivery Me thod Room Air Room Air Room Air 07/22/22 20:11 Temperature Pulse Rate [Pulse Oximeter] 79 Respiratory Rate Blood Pressure [Ri ght Upper Arm] 134/62 Pulse Oximetry 99 Oxygen Delivery Me thod Room Air Course Vital Signs Vital signs: Initial Vital Signs Temperature 98.6 F 07/22/22 18:03 Temperature Source Temporal Artery Scan 07/22/22 18:03 Pulse Rate 101 H 07/22/22 18:03 Pulse Rhythm 07/22/22 18:03 Respiratory Rate 28 H 07/22/22 18:03 Blood Pressure 144/80 H 07/22/22 18:03 Blood Pressure Mean 101 07/22/22 18:03 Blood Pressure Position Supine 07/22/22 18:03 Pulse Oximetry 100 07/22/22 18:03 Oxygen Delivery Method 07/22/22 18:03 Vital Signs Temperature 98.6 F 07/22/22 18:03 Pulse Rate 101 H 07/22/22 18:03 Respiratory Rate 28 H 07/22/22 18:03 Blood Pressure 144/80 H 07/22/22 18:03 Pulse Oximetry 100 07/22/22 18:03 Oxygen Delivery Method 07/22/22 18:03 Temperature 98.6 F 07/22/22 18:03 Pulse Rate 79 07/22/22 20:11 Respiratory Rate 22 07/22/22 19:47 Blood Pressure 134/62 07/22/22 20:11 Pulse Oximetry 99 07/22/22 20:11 Oxygen Delivery Method 07/22/22 20:11 MDM - Altered Mental Status MDM Narrative Medical decision making narrative: This patient comes in with above-stated issues. She seems to be rather clear mentally and is not having any complaints. Her son states that when symptoms were like this in the past she had a urinary tract infection. Urinalysis today does show evidence of infection. The patient did receive an oral dose of Keflex and a prescription for the same. Lab results returned with elevated BUN indicating volume depletion. She does have a rather dry mouth. She did receive a L of normal saline intravenously. Her sodium returns at 128 but this is not atypical for her. CT scan of the head shows no acute findings. She is okay to return home to resume current plans otherwise. Lab Data Labs: Lab Results 07/22/22 07/22/22 07/22/22 Range/Units 18:13 18:19 18:35 WBC 8.85 (4.50-11.00) K/uL RBC 4.43 (4.00-5.20) m/uL Hgb 13.1 (12.0-16.0) gm/dL Hct 39.5 (33.0-51.0) % MCV 89 (80-100) fL MCH 30 (26-34) pg MCHC 33 (32-36) gm/dL RDW Coeff of Sharmaine 13.0 (11.5-15.5) % Plt Count 264 (140-440) K/uL Neut % (Auto) 54.3 (42.0-72.0) % Lymph % (Auto) 35.0 (20-44) % [place] % (Auto) 8.6 (0.0-11.0) % Eos % (Auto) 1.7 (0.0-7.0) % Baso % (Auto) 0.3 (0.0-3.0) % Neut # (Auto) 4.80 (1.7-7.0) K/uL Lymph # (Auto) 3.10 H (0.90-2.90) K/uL [place] # (Auto) 0.80 (0.00-0.90) K/UL Eos # (Auto) 0.15 (0.00-0.50) K/uL Baso # (Auto) 0.03 (0.00-0.30) K/uL Abs Immat Gran (auto) 0.01 (0.00-0.30) K/uL Sodium (135-149) mmol/L Potassium (3.6-5.1) mmol/L Chloride (96-114) mmol/L Carbon Dioxide (20-32) mmol/L BUN (7-30) mg/dL Creatinine (0.5-1.5) mg/dL Estimated GFR ml/min Glucose (60-115) mg/dL Calcium (8.4-10.6) mg/dL Urine Color Yellow (Yellow) Urine Appearance Cloudy A (Clear) Urine pH 5.5 (5.0-8.5) Ur Specific [place] 1.025 (1.000-1.030) Urine Protein 1+ A (Negative) Urine Glucose (UA) Negative (Negative) Urine Ketones Negative (Negative) Urine Blood 2+ A (Negative) Urine Nitrite Negative (Negative) Urine Bilirubin Negative (Negative) Urine Urobilinogen 0.2 (0.2-1.0) Ur Leukocyte Esterase 1+ A (Negative) Urine RBC 0-2 (0-2) Urine WBC 25-50 A (0-5) Ur Squamous Epith Cells None (None-Few) Other Sediment YEAST (None) Urine Bacteria Few A (None) Urine Yeast Many A (None) SARS-CoV-2 (PCR) (Negative) Influenza Type A (PCR) (Negative) Influenza Type B (PCR) (Negative) POC Troponin I 0.00 L (0.01-0.04) ng/ml 07/22/22 07/22/22 Range/Units 18:35 18:43 WBC (4.50-11.00) K/uL RBC (4.00-5.20) m/uL Hgb (12.0-16.0) gm/dL Hct (33.0-51.0) % MCV (80-100) fL MCH (26-34) pg MCHC (32-36) gm/dL RDW Coeff of Sharmaine (11.5-15.5) % Plt Count (140-440) K/uL Neut % (Auto) (42.0-72.0) % Lymph % (Auto) (20-44) % [place] % (Auto) (0.0-11.0) % Eos % (Auto) (0.0-7.0) % Baso % (Auto) (0.0-3.0) % Neut # (Auto) (1.7-7.0) K/uL Lymph # (Auto) (0.90-2.90) K/uL [place] # (Auto) (0.00-0.90) K/UL Eos # (Auto) (0.00-0.50) K/uL Baso # (Auto) (0.00-0.30) K/uL Abs Immat Gran (auto) (0.00-0.30) K/uL Sodium 127 L (135-149) mmol/L Potassium 4.8 (3.6-5.1) mmol/L Chloride 91 L (96-114) mmol/L Carbon Dioxide 22 (20-32) mmol/L BUN 48 H (7-30) mg/dL Creatinine 1.3 (0.5-1.5) mg/dL Estimated GFR 40 ml/min Glucose 102 (60-115) mg/dL Calcium 10.0 (8.4-10.6) mg/dL Urine Color (Yellow) Urine Appearance (Clear) Urine pH (5.0-8.5) Ur Specific [place] (1.000-1.030) Urine Protein (Negative) Urine Glucose (UA) (Negative) Urine Ketones (Negative) Urine Blood (Negative) Urine Nitrite (Negative) Urine Bilirubin (Negative) Urine Urobilinogen (0.2-1.0) Ur Leukocyte Esterase (Negative) Urine RBC (0-2) Urine WBC (0-5) Ur Squamous Epith Cells (None-Few) Other Sediment (None) Urine Bacteria (None) Urine Yeast (None) SARS-CoV-2 (PCR) Negative SARS-CoV-2 (Negative) Influenza Type A (PCR) Negative PCR FLU A (Negative) Influenza Type B (PCR) Negative PCR FLU B (Negative) POC Troponin I (0.01-0.04) ng/ml Imaging Data CT scan - head: Radiologist's impression: No acute intracranial abnormality. Chest x-ray: Radiologist's impression: Suboptimal study with overpenetration of the film. Normal cardiac mediastinal silhouette. Apical pleural thickening. Lungs appear clear. ECG Data Attestation: I personally reviewed and interpreted this ECG as follows: Interpretation: Normal sinus rhythm. Rate 98 beats per minute. There are no specific ST or T-wave abnormalities. Discharge Plan Discharge Clinical Impression: Urinary tract infection Patient Disposition: Home w/ Parent or Adult Condition: Improved Additional Instructions: Take medication as prescribed. Follow up with MD or return if worsening. Prescriptions: New cephalexin 500 mg capsule 500 mg PO TID 7 Days Qty: 21 0RF No Action acetaminophen 500 mg capsule 1,000 mg PO QID PRN ondansetron HCl 4 mg tablet 4 mg PO Q6H PRN melatonin 3 mg tablet 6 mg PO HS metoprolol tartrate 25 mg tablet 25 mg PO BID morphine concentrate 100 mg/5 mL (20 mg/mL) solution 5 - 20 mg PO Q1H PRN simethicone 80 mg tablet,chewable 80 mg PO BID PRN ciprofloxacin HCl 250 mg Tablet 250 mg PO 1000,2200 Qty: 14 0RF loperamide 2 mg Capsule 2 mg PO QID Qty: 60 0RF Rx Instructions: hold for formed thick stool in ostomy sodium bicarbonate 650 mg Tablet 650 mg PO BIDWMEAL Qty: 60 0RF hydrocortisone 5 mg tablet 5 - 10 mg PO BID Label Comments: TAKE 2 TABS (10MG) BY MOUTH IN THE MORNING;TAKE 1 TAB BY MOUTH IN THE EVENING atorvastatin 40 mg tablet 40 mg PO DAILY aspirin 81 mg tablet,delayed release (DR/EC) 81 mg PO DAILY levothyroxine 75 mcg tablet 75 mcg PO DAILY famotidine 20 mg tablet 20 mg PO BID calcitonin (salmon) 200 unit/actuation spray,non-aerosol 1 spray intranasal (ALT) DAILY morphine 15 mg tablet extended release 15 mg PO TID estradiol 0.01 % (0.1 mg/gram) cream 1 appful VAGINAL .FRIDAY,FRIDAY magnesium oxide 250 mg magnesium tablet 250 mg PO DAILY insulin lispro [Humalog KwikPen Insulin] 100 unit/mL insulin pen 2 - 5 unit SUBCUT TIDWM Label Comments: INJECT 2 UNITS SUBQ WITH BREAKFAST PLUS SLIDING SCALE;INJECT 5 UNITS SUBQ WITH LUNCH PLUS SLIDING SCALE;INJECT 4 UNITS SUBQ WITH SUPPER PLUS coenzyme Q10 100 mg capsule 100 mg PO DAILY olopatadine 0.2 % drops 1 drp ophthalmic (eye) DAILY insulin glargine [Lantus Solostar U-100 Insulin] 100 unit/mL (3 mL) insulin pen 13 unit SUBCUT DAILY cholecalciferol (vitamin D3) 50 mcg (2,000 unit) tablet 4,000 unit PO DAILY Women's One Daily 18 mg iron-400 mcg-500 mg Ca tablet 1 tab PO DAILY polyethylene glycol 3350 17 gram/dose powder 17 g PO DAILY vitamin B complex [Vitamins B Complex] Capsule 1 cap PO DAILY oxycodone 5 mg tablet 5 mg PO Q6H PRN Probiotic 3 billion cell capsule 3,000 mmu cells PO DAILY Rx Instructions: administer with a meal Follow Up/Referrals: Onur Schreiber MD [Primary Care Provider] - Stand Alone Forms: [facility] Info Instructions
[2022-07-22 18:41] LABS: Basophils Absolute Auto 0.03 K/uL (0.00-0.30); Basophils Percent Auto 0.3 % (0.0-3.0); Eosinophils Absolute Auto 0.15 K/uL (0.00-0.50); Eosinophils Percent Auto 1.7 % (0.0-7.0); Hematocrit 39.5 % (33.0-51.0); Hemoglobin* 13.1 gm/dL (12.0-16.0); Immature Granulocytes Abs Auto 0.01 K/uL (0.00-0.30); Mean Corpuscular HGB Conc 33 gm/dL (32-36); Mean Corpuscular Hemoglobin 30 pg (26-34); Mean Corpuscular Volume 89 fL (80-100); Monocytes Percent Auto 8.6 % (0.0-11.0); Neutrophils Percent Auto 54.3 % (42.0-72.0); Platelet Count* 264 K/uL (140-440); Red Blood Count 4.43 m/uL (4.00-5.20); White Blood Count* 8.85 K/uL (4.50-11.00)
[2022-07-22 18:43] LABS: Slide Review Reflex No
[2022-07-22 18:58] LABS: Chloride* 91 mmol/L (96-114); Potassium* 4.8 mmol/L (3.6-5.1); Sodium* 127 mmol/L (135-149)
[2022-07-22 19:01] LABS: Blood Urea Nitrogen* 48 mg/dL (7-30); Carbon Dioxide* 22 mmol/L (20-32); Creatinine* 1.3 mg/dL (0.5-1.5); Estimated Glomerular Filt Rate 40 ml/min
[2022-07-22 19:02] LABS: Glucose* 102 mg/dL (60-115)
[2022-07-22 19:07] VITALS: BP 129/73; PULSE 89; RESP 28; O2SAT 99
[2022-07-22] MEDS: 0.9 % SODIUM CHLORIDE 500 ML 500 ML IV ×2 (19:17→19:39)
[2022-07-22 19:31] LABS: PCR FLU A Negative PCR FLU A (Negative); PCR FLU B Negative PCR FLU B (Negative); SARS PCR* Negative SARS-CoV-2 (Negative)
[2022-07-22 19:47] VITALS: BP 120/62; PULSE 75; RESP 22; O2SAT 98
[2022-07-22 20:04] LABS: Appearance Urine Cloudy (Clear); Bilirubin Urine Negative (Negative); Blood Urine 2+ (Negative); Color Urine Yellow (Yellow); Glucose Urine Negative (Negative); Ketones Urine Negative (Negative); Leukocyte Esterase Urine 1+ (Negative); Nitrite Urine Negative (Negative); Protein Urine 1+ (Negative); Specific Gravity Urine 1.025 (1.000-1.030); Urobilinogen Urine 0.2 (0.2-1.0); pH Urine 5.5 (5.0-8.5)
[2022-07-22 20:11] VITALS: BP 134/62; PULSE 79; O2SAT 99
[2022-07-22 20:23] LABS: Bacteria Urine Few; Other Sediment Urine YEAST; RBC Urine 0-2 (0-2); WBC Urine 25-50 (0-5)
[2022-07-22] MEDS: cephALEXin 500 MG CAPSULE PO (20:55)
== END 2022-07-22 21:18 | disposition home or self-care (01) ==
PROVIDERS: Emergency Provider Emergency Medicine Emergency Medical Services; PCP Family Medicine
DX: N39.0 Urinary tract infection, site not specified (principal)
CPT/HCPCS: 36415; 70450; 71045; 80048; 81001; 84484; 85025; 87086; 87631; 93005; 99285; A9270; J7120

== ENCOUNTER 2022-07-22 21:03 | Outpatient (CLI) | payer BC, SELFPAY | END 2022-07-22 21:04 | disposition home or self-care (01) | LOC: AMB 08-20 16:09 | PROVIDERS: PCP Family Medicine; Visit Provider Family Medicine | DX: R53.1 Weakness (principal) | CPT/HCPCS: A0425; A0428 ==

== ENCOUNTER 2022-07-26 10:34 | Outpatient (REF) | payer BC, SELFPAY ==
[2022-07-26 11:07] LABS: Chloride* 92 mmol/L (96-114)
[2022-07-26 11:08] LABS: Potassium* 4.4 mmol/L (3.6-5.1); Sodium* 127 mmol/L (135-149)
[2022-07-26 11:10] LABS: Creatinine* 0.8 mg/dL (0.5-1.5); Estimated Glomerular Filt Rate 72 ml/min
[2022-07-26 11:11] LABS: Blood Urea Nitrogen* 30 mg/dL (7-30); Calcium* 9.8 mg/dL (8.4-10.6); Carbon Dioxide* 28 mmol/L (20-32); Glucose* 144 mg/dL (60-115)
== END 2022-07-26 10:35 | disposition home or self-care (01) ==
LOC: NPINS 10:34
PROVIDERS: PCP Family Medicine; Visit Provider Nurse Practitioner Gerontology
DX: E87.1 Hypo-osmolality and hyponatremia (principal); E87.5 Hyperkalemia; I10 Essential (primary) hypertension
CPT/HCPCS: 80048

== ENCOUNTER 2022-07-30 13:16 | Outpatient (REF) | payer BC, SELFPAY ==
[2022-07-30 16:28] LABS: Chloride* 95 mmol/L (96-114); Sodium* 130 mmol/L (135-149)
[2022-07-30 16:31] LABS: Blood Urea Nitrogen* 38 mg/dL (7-30); Carbon Dioxide* 27 mmol/L (20-32); Estimated Glomerular Filt Rate 55 ml/min; Glucose* 68 mg/dL (60-115)
[2022-07-30 16:32] LABS: Calcium* 9.9 mg/dL (8.4-10.6)
== END 2022-07-30 13:17 | disposition home or self-care (01) ==
LOC: NPINS 13:16
PROVIDERS: PCP Family Medicine; Visit Provider Nurse Practitioner Gerontology
DX: I10 Essential (primary) hypertension (principal); E87.5 Hyperkalemia; E87.1 Hypo-osmolality and hyponatremia; N18.31 Chronic kidney disease, stage 3a
CPT/HCPCS: 80048

== ENCOUNTER 2022-08-07 14:52 | Outpatient (REF) | payer BC, SELFPAY ==
[2022-08-07 15:56] LABS: Chloride* 94 mmol/L (96-114); Potassium* 5.8 mmol/L (3.6-5.1); Sodium* 126 mmol/L (135-149)
[2022-08-07 15:58] LABS: Creatinine* 1.1 mg/dL (0.5-1.5); Estimated Glomerular Filt Rate 49 ml/min
[2022-08-07 15:59] LABS: Blood Urea Nitrogen* 37 mg/dL (7-30); Calcium* 9.6 mg/dL (8.4-10.6); Carbon Dioxide* 22 mmol/L (20-32); Glucose* 286 mg/dL (60-115)
== END 2022-08-07 14:53 | disposition home or self-care (01) ==
LOC: NPINS 14:52
PROVIDERS: PCP Family Medicine; Referring Provider Nurse Practitioner Gerontology; Visit Provider Nurse Practitioner Gerontology
DX: E87.1 Hypo-osmolality and hyponatremia (principal); E87.5 Hyperkalemia; I10 Essential (primary) hypertension
CPT/HCPCS: 80048

== ENCOUNTER 2022-08-13 09:45 | Outpatient (REF) | payer BC, SELFPAY ==
[2022-08-13 10:16] LABS: Hematocrit 36.7 % (33.0-51.0); Hemoglobin* 12.3 gm/dL (12.0-16.0); Mean Corpuscular HGB Conc 34 gm/dL (32-36); Mean Corpuscular Hemoglobin 30 pg (26-34); Mean Corpuscular Volume 88 fL (80-100); Platelet Count* 235 K/uL (140-440); Red Blood Count 4.15 m/uL (4.00-5.20); White Blood Count* 6.43 K/uL (4.50-11.00)
[2022-08-13 10:26] LABS: Slide Review Reflex No
[2022-08-13 10:39] LABS: Chloride* 85 mmol/L (96-114); Potassium* 5.9 mmol/L (3.6-5.1)
[2022-08-13 10:42] LABS: Blood Urea Nitrogen* 48 mg/dL (7-30); Carbon Dioxide* 23 mmol/L (20-32); Creatinine* 1.4 mg/dL (0.5-1.5); Estimated Glomerular Filt Rate 37 ml/min
[2022-08-13 10:43] LABS: Calcium* 9.8 mg/dL (8.4-10.6)
[2022-08-13 11:14] LABS: Glucose* 384 mg/dL (60-115); Sodium* 117 mmol/L (135-149)
== END 2022-08-13 09:46 | disposition home or self-care (01) ==
LOC: NPINS 09:45
PROVIDERS: PCP Family Medicine; Visit Provider Nurse Practitioner Gerontology
DX: E87.5 Hyperkalemia (principal); E87.1 Hypo-osmolality and hyponatremia; I10 Essential (primary) hypertension
CPT/HCPCS: 80048; 85027

== ENCOUNTER 2022-08-16 14:30 | Outpatient (REF) | payer BC, SELFPAY ==
[2022-08-16 15:13] LABS: Chloride* 92 mmol/L (96-114); Potassium* 5.4 mmol/L (3.6-5.1); Sodium* 126 mmol/L (135-149)
[2022-08-16 15:16] LABS: Blood Urea Nitrogen* 33 mg/dL (7-30); Carbon Dioxide* 24 mmol/L (20-32); Creatinine* 0.9 mg/dL (0.5-1.5); Estimated Glomerular Filt Rate 63 ml/min
[2022-08-16 15:17] LABS: Calcium* 9.5 mg/dL (8.4-10.6); Glucose* 301 mg/dL (60-115)
== END 2022-08-16 14:31 | disposition home or self-care (01) ==
LOC: NPINS 14:30
PROVIDERS: PCP Family Medicine; Visit Provider Nurse Practitioner Gerontology
DX: E87.5 Hyperkalemia (principal); E87.1 Hypo-osmolality and hyponatremia; I10 Essential (primary) hypertension
CPT/HCPCS: 80048

== ENCOUNTER 2022-08-19 10:43 | Outpatient (REF) | payer BC, SELFPAY ==
[2022-08-19 12:05] LABS: Chloride* 93 mmol/L (96-114); Sodium* 130 mmol/L (135-149)
[2022-08-19 12:06] LABS: Potassium* 4.3 mmol/L (3.6-5.1)
[2022-08-19 12:08] LABS: Creatinine* 0.9 mg/dL (0.5-1.5); Estimated Glomerular Filt Rate 63 ml/min
[2022-08-19 12:09] LABS: Blood Urea Nitrogen* 25 mg/dL (7-30); Calcium* 9.8 mg/dL (8.4-10.6); Carbon Dioxide* 30 mmol/L (20-32); Glucose* 104 mg/dL (60-115)
== END 2022-08-19 10:44 | disposition home or self-care (01) ==
LOC: NPINS 10:43
PROVIDERS: PCP Family Medicine; Visit Provider Family Medicine
DX: E87.1 Hypo-osmolality and hyponatremia (principal); E87.5 Hyperkalemia; I10 Essential (primary) hypertension
CPT/HCPCS: 80048; 84443

== ENCOUNTER 2022-08-27 12:16 | Outpatient (REF) | payer BC, SELFPAY ==
[2022-08-27 12:59] LABS: Chloride* 98 mmol/L (96-114); Potassium* 4.9 mmol/L (3.6-5.1); Sodium* 131 mmol/L (135-149)
[2022-08-27 13:02] LABS: Creatinine* 0.8 mg/dL (0.5-1.5); Estimated Glomerular Filt Rate 72 ml/min
[2022-08-27 13:03] LABS: Blood Urea Nitrogen* 20 mg/dL (7-30); Calcium* 7.9 mg/dL (8.4-10.6); Carbon Dioxide* 29 mmol/L (20-32); Glucose* 144 mg/dL (60-115)
== END 2022-08-27 12:17 | disposition home or self-care (01) ==
LOC: NPINS 12:16
PROVIDERS: PCP Family Medicine; Visit Provider Nurse Practitioner Gerontology
DX: E87.1 Hypo-osmolality and hyponatremia (principal); E87.5 Hyperkalemia; I10 Essential (primary) hypertension
CPT/HCPCS: 80048

== ENCOUNTER 2022-09-03 12:56 | Outpatient (REF) | payer BC, SELFPAY ==
[2022-09-03 13:54] LABS: Chloride* 102 mmol/L (96-114); Sodium* 138 mmol/L (135-149)
[2022-09-03 13:55] LABS: Potassium* 5.2 mmol/L (3.6-5.1)
[2022-09-03 13:57] LABS: Estimated Glomerular Filt Rate 24 ml/min
[2022-09-03 13:58] LABS: Blood Urea Nitrogen* 40 mg/dL (7-30); Carbon Dioxide* 25 mmol/L (20-32); Glucose* 87 mg/dL (60-115)
== END 2022-09-03 12:57 | disposition home or self-care (01) ==
LOC: NPINS 12:56
PROVIDERS: PCP Family Medicine; Visit Provider Family Medicine
DX: E87.1 Hypo-osmolality and hyponatremia (principal); E87.5 Hyperkalemia; I10 Essential (primary) hypertension
CPT/HCPCS: 80048

== ENCOUNTER 2022-09-17 09:07 | Outpatient (REF) | payer BC, SELFPAY ==
[2022-09-17 10:43] LABS: Blood Urea Nitrogen* 22 mg/dL (7-30); Calcium* 9.4 mg/dL (8.4-10.6); Carbon Dioxide* 29 mmol/L (20-32); Chloride* 99 mmol/L (96-114); Creatinine* 0.9 mg/dL (0.5-1.5); Estimated Glomerular Filt Rate 63 ml/min; Glucose* 187 mg/dL (60-115); Potassium* 4.4 mmol/L (3.6-5.1); Sodium* 135 mmol/L (135-149)
== END 2022-09-17 09:08 | disposition home or self-care (01) ==
LOC: NPINS 09:07
PROVIDERS: PCP Family Medicine; Visit Provider Nurse Practitioner Gerontology
DX: E87.5 Hyperkalemia (principal); E87.1 Hypo-osmolality and hyponatremia
CPT/HCPCS: 80048

== ENCOUNTER 2022-09-24 13:16 | Outpatient (REF) | payer BC, SELFPAY ==
[2022-09-24 17:54] LABS: Hemoglobin A1C* 8.93 % (0-5.6)
== END 2022-09-24 13:17 | disposition home or self-care (01) ==
LOC: NPINS 13:16
PROVIDERS: PCP Family Medicine; Visit Provider Family Medicine
DX: E10.43 Type 1 diabetes mellitus with diabetic autonomic (poly)neuropathy (principal); E10.21 Type 1 diabetes mellitus with diabetic nephropathy
CPT/HCPCS: 83036; 85018

== ENCOUNTER 2022-10-15 12:09 | Outpatient (REF) | payer BC, SELFPAY ==
[2022-10-15 13:03] LABS: Chloride* 99 mmol/L (96-114); Potassium* 4.4 mmol/L (3.6-5.1); Sodium* 133 mmol/L (135-149)
[2022-10-15 13:05] LABS: Creatinine* 0.8 mg/dL (0.5-1.5); Estimated Glomerular Filt Rate 72 ml/min
[2022-10-15 13:06] LABS: Blood Urea Nitrogen* 19 mg/dL (7-30); Calcium* 9.2 mg/dL (8.4-10.6); Carbon Dioxide* 30 mmol/L (20-32); Glucose* 137 mg/dL (60-115)
== END 2022-10-15 12:10 | disposition home or self-care (01) ==
LOC: NPINS 12:09
PROVIDERS: PCP Family Medicine; Visit Provider Nurse Practitioner Gerontology
DX: E87.1 Hypo-osmolality and hyponatremia (principal); E87.5 Hyperkalemia; I10 Essential (primary) hypertension
CPT/HCPCS: 80048

== ENCOUNTER 2022-11-19 12:00 | Outpatient (REF) | payer BC, SELFPAY ==
[2022-11-19 12:44] LABS: Chloride* 95 mmol/L (96-114); Potassium* 4.8 mmol/L (3.6-5.1); Sodium* 132 mmol/L (135-149)
[2022-11-19 12:47] LABS: Blood Urea Nitrogen* 17 mg/dL (7-30); Carbon Dioxide* 31 mmol/L (20-32); Creatinine* 0.9 mg/dL (0.5-1.5); Estimated Glomerular Filt Rate 63 ml/min
[2022-11-19 12:48] LABS: Calcium* 9.3 mg/dL (8.4-10.6); Glucose* 298 mg/dL (60-115)
== END 2022-11-19 12:01 | disposition home or self-care (01) ==
LOC: NPINS 12:00
PROVIDERS: PCP Family Medicine; Visit Provider Nurse Practitioner Gerontology
DX: E87.5 Hyperkalemia (principal); E87.1 Hypo-osmolality and hyponatremia; E03.9 Hypothyroidism, unspecified
CPT/HCPCS: 80048; 84443

== ENCOUNTER 2023-01-21 14:13 | Outpatient (REF) | payer BC, SELFPAY | END 2023-01-21 14:14 | disposition home or self-care (01) | LOC: NPINS 14:13 | PROVIDERS: PCP Family Medicine; Visit Provider Family Medicine | DX: E10.9 Type 1 diabetes mellitus without complications (principal); E87.1 Hypo-osmolality and hyponatremia; E27.40 Unspecified adrenocortical insufficiency | CPT/HCPCS: 80048; 83036 ==

== ENCOUNTER 2023-01-22 10:54 | Outpatient (REF) | payer BC, SELFPAY ==
[2023-01-22 11:47] LABS: Hemoglobin A1C* 10.07 % (0-5.6)
[2023-01-22 12:00] LABS: Chloride* 93 mmol/L (96-114); Sodium* 126 mmol/L (135-149)
[2023-01-22 12:03] LABS: Blood Urea Nitrogen* 23 mg/dL (7-30); Carbon Dioxide* 25 mmol/L (20-32); Estimated Glomerular Filt Rate 55 ml/min
[2023-01-22 12:04] LABS: Calcium* 9.1 mg/dL (8.4-10.6)
[2023-01-22 12:21] LABS: Glucose* 532 mg/dL (60-115)
== END 2023-01-22 10:55 | disposition home or self-care (01) ==
LOC: NPINS 10:54
PROVIDERS: PCP Family Medicine; Visit Provider Family Medicine
DX: E10.43 Type 1 diabetes mellitus with diabetic autonomic (poly)neuropathy (principal); E10.21 Type 1 diabetes mellitus with diabetic nephropathy; I10 Essential (primary) hypertension
CPT/HCPCS: 80048; 83036

== ENCOUNTER 2023-02-20 10:07 | Outpatient (REF) | payer BC, SELFPAY ==
[2023-02-20 10:20] LABS: Appearance Urine Clear (Clear); Bilirubin Urine Negative (Negative); Blood Urine Trace-intact (Negative); Color Urine Yellow (Yellow); Glucose Urine Trace (Negative); Ketones Urine Negative (Negative); Leukocyte Esterase Urine Negative (Negative); Nitrite Urine Negative (Negative); Protein Urine 1+ (Negative); Specific Gravity Urine 1.015 (1.000-1.030); Urobilinogen Urine 0.2 (0.2-1.0); pH Urine 5.5 (5.0-8.5)
[2023-02-20 10:40] LABS: Bacteria Urine Many; RBC Urine 0-2 (0-2); Squamous Epithelial Cell Urine Moderate (None-Few); WBC Urine 0-2 (0-5)
== END 2023-02-20 10:08 | disposition home or self-care (01) ==
LOC: NPINS 10:07
PROVIDERS: PCP Family Medicine; Visit Provider Family Medicine
DX: E10.43 Type 1 diabetes mellitus with diabetic autonomic (poly)neuropathy (principal); R35.0 Frequency of micturition
CPT/HCPCS: 81003; 81015; 87086

== ENCOUNTER 2023-03-02 22:20 | Outpatient (CLI) | payer BC, SELFPAY | END 2023-03-02 22:21 | disposition home or self-care (01) | LOC: AMB 03-05 06:03 | PROVIDERS: PCP Family Medicine; Visit Provider Family Medicine | DX: E11.65 Type 2 diabetes mellitus with hyperglycemia (principal); R41.82 Altered mental status, unspecified | CPT/HCPCS: A0425; A0429 ==

== ENCOUNTER 2023-03-02 22:44 | Inpatient (IN) | payer BC, SELFPAY ==
[2023-03-02 22:48] VITALS: BP 102/63; PULSE 66; RESP 18; TEMP 36.7; O2SAT 98
--- NOTE | 2023-03-02 23:22 | ED_ITS ---
HPI - General Adult General Chief complaint: Nausea/Vomiting Stated complaint: General Malaise Time Seen by Provider: 03/02/23 23:20 History of Present Illness HPI narrative: Patient arrives via ambulance from [facility]. Staff reports patient report dizziness last night. Today she report ed nausea and has decreased appetite-eating minimally at meals. They administered PRN zofran x2 at the care facility. This evening patient was found resting in bed with the lights on, wh ich per staff in not her usual. Staff also report that they are concerned about patient's mental health/ depression. They state that she is fixated on her weight and body image. Was started on sertraline 1 month ago and had a dose increase 2 weeks ago. Patient reports nausea x3 days on arrival. No pain or vomtting. Patient has DM type 1. Patient 's blood sugar per EMS was 358 87-year-old woman presenting to the emergency department via EMS from residential. Seems confused. Castillo positive review of systems and then denies. Reporting no pain. Denies shortness of breath. Specifically no chest pain. Reports on arrival are that has been expressing nausea but not vomiting and not wanting to eat much. Underlying history of diabetes and ileostomy. Chronic pain. History of hyponatremia Related Data Home Medications Medication Instructions Recorded Confirmed aspirin 81 mg tablet,delayed 81 mg PO DAILY 05/02/22 01/15/23 release atorvastatin 40 mg tablet 40 mg PO DAILY 05/02/22 01/15/23 calcitonin (salmon) 200 1 spray intranasal (ALT) DAILY 05/02/22 01/15/23 unit/actuation nasal spray cholecalciferol (vitamin D3) 50 4,000 unit PO DAILY 05/02/22 01/15/23 mcg (2,000 unit) tablet coenzyme Q10 100 mg capsule 100 mg PO DAILY 05/02/22 01/15/23 estradiol 0.01% (0.1 mg/gram) 1 appful vaginal .FRIDAY,Friday05/02/22 01/15/23 vaginal cream famotidine 20 mg tablet 20 mg PO BID 05/02/22 01/15/23 hydrocortisone 5 mg tablet 5 - 10 mg PO BID 05/02/22 01/15/23 insulin glargine 100 unit/mL (3 13 unit subcut DAILY 05/02/22 01/15/23 mL) subcutaneous pen (Lantus Solostar U-100 Insulin) insulin lispro 100 unit/mL 2 - 5 unit subcut TIDWM 05/02/22 01/15/23 subcutaneous pen (Humalog KwikPen (U-100) Insulin) lactobacillus combination no.4 3 3,000 mmu cells PO DAILY 05/02/22 01/15/23 billion cell capsule (Probiotic) levothyroxine 75 mcg tablet 75 mcg PO DAILY 05/02/22 01/15/23 magnesium oxide 250 mg PO DAILY 05/02/22 01/15/23 morphine 15 mg tablet,extended 15 mg PO TID 05/02/22 01/15/23 release multivit-iron 18 mg-folic acid 400 1 tab PO DAILY 05/02/22 01/15/23 mcg-calcium 500 mg-minerals tablet (Women's One Daily) olopatadine 0.2 % eye drops 1 drp ophthalmic (eye) DAILY 05/02/22 01/15/23 oxycodone 5 mg tablet 5 mg PO Q6H PRN 05/02/22 01/15/23 polyethylene glycol 3350 17 17 g PO DAILY 05/02/22 01/15/23 gram/dose oral powder vitamin B complex (Vitamins B 1 cap PO DAILY 05/02/22 01/15/23 Complex capsule) acetaminophen 500 mg capsule 1,000 mg PO QID PRN 05/28/22 01/15/23 melatonin 3 mg tablet 6 mg PO HS 05/28/22 01/15/23 metoprolol tartrate 25 mg tablet 25 mg PO BID 05/28/22 01/15/23 morphine concentrate 100 mg/5 mL 5 - 20 mg PO Q1H PRN 05/28/22 01/15/23 (20 mg/mL) oral solution ondansetron HCl 4 mg tablet 4 mg PO Q6H PRN 05/28/22 01/15/23 simethicone 80 mg chewable tablet 80 mg PO BID PRN 05/28/22 01/15/23 Previous Rx's Medication Instructions Recorded ciprofloxacin HCl 250 mg tablet 250 mg PO 1000,2200 #14 tabs 05/31/22 loperamide 2 mg capsule 2 mg PO QID #60 caps 05/31/22 sodium bicarbonate 650 mg tablet 650 mg PO BIDWMEAL #60 tabs 05/31/22 cephalexin 500 mg capsule 500 mg PO TID 7 days #21 caps 07/22/22 Allergies Allergy/AdvReac Type Severity Reaction Status Date / Time adhesive tape Allergy Mild Rash Verified 01/15/23 10:18 diclofenac Allergy Unknown Verified 01/15/23 10:18 aspartame Allergy Verified 01/15/23 10:18 beclomethasone Allergy Verified 01/15/23 10:18 bisacodyl Allergy Verified 01/15/23 10:18 dexamethasone Allergy Verified 01/15/23 10:18 doxycycline Allergy Verified 01/15/23 10:18 erythromycin base Allergy Verified 01/15/23 10:18 gabapentin Allergy Verified 01/15/23 10:18 hydrochlorothiazide Allergy Verified 01/15/23 10:18 lactase [From Dairy Aid] Allergy Verified 01/15/23 10:18 meclizine Allergy Verified 01/15/23 10:18 metformin Allergy Verified 01/15/23 10:18 metoclopramide Allergy Verified 01/15/23 10:18 nabumetone [From Relafen] Allergy Verified 01/15/23 10:18 propranolol Allergy Verified 01/15/23 10:18 raloxifene Allergy Verified 01/15/23 10:18 ramipril Allergy Verified 01/15/23 10:18 tobramycin Allergy Verified 01/15/23 10:18 venlafaxine Allergy Verified 01/15/23 10:18 Review of Systems Status of ROS: Reports: unobtainable due to mental status (Limited) [facility] Medical History (Updated 03/03/23 @ 06:09 by Edmund Corbin MD) Abnormal liver enzymes ?R74.8 - Abnormal levels of other serum enzymes (ICD-10) Adrenal insufficiency ?E27.40 - Unspecified adrenocortical insufficiency (ICD-10) Anxiety ?F41.9 - Anxiety disorder, unspecified (ICD-10) Asthma ?J45.909 - Unspecified asthma, uncomplicated (ICD-10) 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 - Atherosclerotic heart disease of [place] coronary artery without angina pectoris (ICD-10) Cataract ?H26.9 - Unspecified cataract (ICD-10) Chronic kidney disease (CKD) stage G3a/A1, moderately decreased glomerular filtration rate (GFR) between 45-59 mL/min/1.73 square meter and albuminuria creatinine ratio less than 30 mg/g ?N18.31 - Chronic kidney disease, stage 3a (ICD-10) Constipation ?K59.00 - Constipation, unspecified (ICD-10) Convulsions ?R56.9 - Unspecified convulsions (ICD-10) Dementia ?F03.90 - Unspecified dementia without behavioral disturbance (ICD-10) Diabetes mellitus type 1 ?E10.9 - Type 1 diabetes mellitus without complications (ICD-10) Dorsalgia ?M54.9 - Dorsalgia, unspecified (ICD-10) GERD (gastroesophageal reflux disease) ?K21.9 - Gastro-esophageal reflux disease without esophagitis (ICD-10) Health care directive on file ?Z78.9 - Other specified health status (ICD-10) High output ileostomy ?R19.8 - Other specified symptoms and signs involving the digestive system and abdomen (ICD-10) ?Z93.2 - Ileostomy status (ICD-10) Hyperkalemia ?E87.5 - Hyperkalemia (ICD-10) Hyperlipidemia ?E78.5 - Hyperlipidemia, unspecified (ICD-10) Hyponatremia ?E87.1 - Hypo-osmolality and hyponatremia (ICD-10) Hypothyroidism ?E03.9 - Hypothyroidism, unspecified (ICD-10) Osteoarthritis ?M19.90 - Unspecified osteoarthritis, unspecified site (ICD-10) Pelvic fracture ?S32.9XXA - Fracture of unspecified parts of lumbosacral spine and pelvis, initial encounter for closed fracture (ICD-10) POLST (Physician Orders for Life-Sustaining Treatment) ?Z78.9 - Other specified health status (ICD-10) Postmenopausal atrophic vaginitis ?N95.2 - Postmenopausal atrophic vaginitis (ICD-10) Pressure ulcer of sacral region, unstageable ?L89.150 - Pressure ulcer of sacral region, unstageable (ICD-10) Primary adrenocortical insufficiency ?E27.1 - Primary adrenocortical insufficiency (ICD-10) Primary hypertension ?I10 - Essential (primary) hypertension (ICD-10) Type 1 diabetes mellitus ?E10.9 - Type 1 diabetes mellitus without complications (ICD-10) Unspecified dementia without behavioral disturbance ?F03.90 - Unspecified dementia without behavioral disturbance (ICD-10) Vertebral fracture Surgical History (Updated 06/04/22 @ 00:01 by Background Daemon) H/O angioplasty ?Z98.62 - Peripheral vascular angioplasty status (ICD-10) H/O mastoidectomy ?Z90.89 - Acquired absence of other organs (ICD-10) No significant past surgical history S/P appendectomy ?Z90.49 - Acquired absence of other specified parts of digestive tract (ICD- 10) S/P laparoscopic cholecystectomy ?Z90.49 - Acquired absence of other specified parts of digestive tract (ICD- 10) S/P small bowel resection ?Z90.49 - Acquired absence of other specified parts of digestive tract (ICD- 10) Social History (Updated 05/02/22 @ 17:42 by Evita Mccracken MD) Narrative: Patient lives in a residential. Highest level of school completed/degree received: don't know Smoking Status: Never smoker Do you use any of these nicotine containing products: None Second hand tobacco smoke exposure: No How often do you have a drink containing alcohol: never How often do you have six or more drinks on one occasion: Never AUDIT-C Alcohol total score: 0 Non-prescribed substance use: denies use Caffeine: No service: No Exam Narrative: Exam Narrative: Still. Sallow appearing. Oropharynx is a little dry. Cranial nerves 2-12 look to be intact. Alert enough to respond briefly to questions. She is moving all extremities which is generally weak. Thin. Lungs with without wheeze with trace basilar crepitus bilaterally. Heart palpates slower. Generally regular on initial auscultation. Abdomen is soft. Bowel sounds are present. Mildly tender around right-sided low ileostomy. No unusual inflammatory changes. There is green stool in ileostomy. Extremities are thin and without edema. Well perfused. Const: Vital Signs, click to edit/add: Vital Signs - 24 hr 03/02/23 22:48 03/03/23 00:02 03/03/23 00:34 Temperature 98.1 F Pulse Rate 49 L Pulse Rate [Pulse Oximeter] 66 Respiratory Rate 18 Blood Pressure 111/46 L Blood Pressure [Le ft Upper Arm] 102/63 Pulse Oximetry 98 98 95 Oxygen Delivery Me thod Room Air 03/03/23 00:35 03/03/23 00:45 03/03/23 00:47 Temperature Pulse Rate 57 L 53 L 57 L Pulse Rate [Pulse Oximeter] Respiratory Rate Blood Pressure 109/45 L Blood Pressure [Le ft Upper Arm] Pulse Oximetry 96 92 95 Oxygen Delivery Me thod 03/03/23 01:02 03/03/23 01:02 03/03/23 01:03 Temperature Pulse Rate 48 L 48 L 51 L Pulse Rate [Pulse Oximeter] Respiratory Rate Blood Pressure 88/43 L 88/43 L Blood Pressure [Le ft Upper Arm] Pulse Oximetry 91 91 92 Oxygen Delivery Me thod 03/03/23 01:05 03/03/23 01:15 03/03/23 01:17 Temperature Pulse Rate 55 L 53 L 52 L Pulse Rate [Pulse Oximeter] Respiratory Rate Blood Pressure 131/43 L 129/46 L Blood Pressure [Le ft Upper Arm] Pulse Oximetry 94 98 91 Oxygen Delivery Me thod 03/03/23 01:19 03/03/23 01:30 03/03/23 01:32 Temperature Pulse Rate 52 L 52 L 53 L Pulse Rate [Pulse Oximeter] Respiratory Rate Blood Pressure 96/57 L Blood Pressure [Le ft Upper Arm] Pulse Oximetry 96 93 92 Oxygen Delivery Me thod Documenting provider has reviewed patient's vital signs: yes Course Vital Signs Vital signs: Initial Vital Signs Temperature 98.1 F 03/02/23 22:48 Temperature Source Temporal Artery Scan 03/02/23 22:48 Pulse Rate 66 03/02/23 22:48 Respiratory Rate 18 03/02/23 22:48 Blood Pressure 102/63 03/02/23 22:48 Blood Pressure Mean 76 03/02/23 22:48 Pulse Oximetry 98 03/02/23 22:48 Oxygen Delivery Method Room Air 03/02/23 22:48 Vital Signs Temperature 98.1 F 03/02/23 22:48 Pulse Rate 66 03/02/23 22:48 Respiratory Rate 18 03/02/23 22:48 Blood Pressure 102/63 03/02/23 22:48 Pulse Oximetry 98 03/02/23 22:48 Oxygen Delivery Method Room Air 03/02/23 22:48 Temperature 98.1 F 03/02/23 22:48 Pulse Rate 53 L 03/03/23 01:32 Respiratory Rate 18 03/02/23 22:48 Blood Pressure 96/57 L 03/03/23 01:32 Pulse Oximetry 92 03/03/23 01:32 Oxygen Delivery Method Room Air 03/02/23 22:48 Medical Decision Making MDM Narrative Medical decision making narrative: Will need to do broad workup here. Confirmed DNR status. Looking for signs of infection the request urinalysis. Heart rate initially seemed to be regular on monitor but then noticing more spacing out, irregular beats. Have ordered EKG. Initial EKG reviewed by me as below. QRS complexes are rather wide. P waves actually seem absent. Debating conversation with Cardiology however labs return with potassium quite low. Given EKG changes ordered for calcium gluconate, insulin and dextrose the blood sugar is elevated. Administering this does seem to improve rhythm P waves return QRS complex lessons. Rechecking potassium. To some degree correcting blood sugars should correct potassium levels White count is also rather elevated at over 15,000. Unclear etiology. No respiratory symptoms. Abdominal exam is relatively benign. Have not yet obtained urinalysis. I suspect will need to place catheter. I have requested this. Hyponatremia also noted at 115. Have requested a 1 L normal saline. Most recently was 126. CRP also elevated mildly suggesting inflammatory or infectious etiology somewhere. I discussed with hospitalist covering for admission but agreed that should continue to look for potential infection. CT scan of abdomen and pelvis as well as chest x-ray be pending and urinalysis will be obtained by catheter. By my read CT scan showing quite distended urinary bladder. See evidence also of inflammatory changes in the lungs not inconsistent with pneumonia I think. On chest x-ray by my read looks to have some potential infiltrates bilaterally. Radiology noting same findings as above with chronic compression fractures and pelvic fractures as well. I have ordered for Rocephin. Also ordered repeat insulin dosing. Potassium still elevated is improved. Will be needing admission but staying in the emergency department pending transfer to the floor Lab Data Lab results reviewed: Yes I reviewed the patient's lab results Labs: Lab Results 03/02/23 03/03/23 03/03/23 Range/Units 23:55 02:00 04:55 WBC 15.49 H (4.50-11.00) K/uL RBC 5.19 (4.00-5.20) m/uL Hgb 15.3 (12.0-16.0) gm/dL Hct 43.3 (33.0-51.0) % MCV 83 (80-100) fL MCH 30 (26-34) pg MCHC 35 (32-36) gm/dL RDW Coeff of Sharmaine 12.8 (11.5-15.5) % Plt Count 285 (140-440) K/uL Neut % (Auto) 79.2 H (42.0-72.0) % Lymph % (Auto) 12.5 L (20-44) % Casey % (Auto) 7.2 (0.0-11.0) % Eos % (Auto) 0.7 (0.0-7.0) % Baso % (Auto) 0.3 (0.0-3.0) % Neut # (Auto) 12.30 H (1.7-7.0) K/uL Lymph # (Auto) 1.90 (0.90-2.90) K/uL Casey # (Auto) 1.10 H (0.00-0.90) K/UL Eos # (Auto) 0.10 (0.00-0.50) K/uL Baso # (Auto) 0.00 (0.00-0.30) K/uL Sodium 115 L* 117 L* (135-149) mmol/L Potassium 7.5 H* 6.8 H* (3.6-5.1) mmol/L Chloride 84 L 88 L (96-114) mmol/L Carbon Dioxide 24 23 (20-32) mmol/L BUN 57 H 55 H (7-30) mg/dL Creatinine 2.1 H 1.9 H (0.5-1.5) mg/dL Estimated GFR 23 26 ml/min Glucose 282 H 317 H (60-115) mg/dL Lactate 1.8 (0.5-1.9) mmol/L Calcium 9.8 9.4 (8.4-10.6) mg/dL Magnesium 2.4 (1.5-2.6) mg/dL Total Bilirubin 1.4 (0.1-1.5) mg/dL Direct Bilirubin 0.3 (0.0-0.5) mg/dL AST 32 (12-35) U/L ALT 28 (4-35) U/L Alkaline Phosphatase 203 H (40-150) U/L C-Reactive Protein 2.1 H (0.5-1.0) mg/dL NT-Pro-B Natriuret Pep 6520 pg/mL Total Protein 7.3 (6.0-8.3) g/dL Albumin 4.5 (3.3-5.0) g/dL Procalcitonin 0.51 H (<0.50) ng/mL Urine Color Yellow (Yellow) Urine Appearance Clear (Clear) Urine pH 5.0 (5.0-8.5) Ur Specific [place] 1.015 (1.000-1.030) Urine Protein Negative (Negative) Urine Glucose (UA) 1+ A (Negative) Urine Ketones Negative (Negative) Urine Blood Negative (Negative) Urine Nitrite Negative (Negative) Urine Bilirubin Negative (Negative) Urine Urobilinogen 0.2 (0.2-1.0) Ur Leukocyte Esterase Negative (Negative) Urine RBC 0-2 (0-2) Urine WBC 0-2 (0-5) Ur Squamous Epith Cells Few (None-Few) Urine Bacteria None (None) SARS-CoV-2 (PCR) Negative SARS-CoV-2 (Negative) 03/03/23 Range/Units 05:00 WBC (4.50-11.00) K/uL RBC (4.00-5.20) m/uL Hgb (12.0-16.0) gm/dL Hct (33.0-51.0) % MCV (80-100) fL MCH (26-34) pg MCHC (32-36) gm/dL RDW Coeff of Sharmaine (11.5-15.5) % Plt Count (140-440) K/uL Neut % (Auto) (42.0-72.0) % Lymph % (Auto) (20-44) % Casey % (Auto) (0.0-11.0) % Eos % (Auto) (0.0-7.0) % Baso % (Auto) (0.0-3.0) % Neut # (Auto) (1.7-7.0) K/uL Lymph # (Auto) (0.90-2.90) K/uL Casey # (Auto) (0.00-0.90) K/UL Eos # (Auto) (0.00-0.50) K/uL Baso # (Auto) (0.00-0.30) K/uL Sodium 118 L* (135-149) mmol/L Potassium 6.5 H* (3.6-5.1) mmol/L Chloride 90 L (96-114) mmol/L Carbon Dioxide 21 (20-32) mmol/L BUN 52 H (7-30) mg/dL Creatinine 1.8 H (0.5-1.5) mg/dL Estimated GFR 27 ml/min Glucose 243 H (60-115) mg/dL Lactate (0.5-1.9) mmol/L Calcium 9.5 (8.4-10.6) mg/dL Magnesium (1.5-2.6) mg/dL Total Bilirubin (0.1-1.5) mg/dL Direct Bilirubin (0.0-0.5) mg/dL AST (12-35) U/L ALT (4-35) U/L Alkaline Phosphatase (40-150) U/L C-Reactive Protein (0.5-1.0) mg/dL NT-Pro-B Natriuret Pep pg/mL Total Protein (6.0-8.3) g/dL Albumin (3.3-5.0) g/dL Procalcitonin (<0.50) ng/mL Urine Color (Yellow) Urine Appearance (Clear) Urine pH (5.0-8.5) Ur Specific [place] (1.000-1.030) Urine Protein (Negative) Urine Glucose (UA) (Negative) Urine Ketones (Negative) Urine Blood (Negative) Urine Nitrite (Negative) Urine Bilirubin (Negative) Urine Urobilinogen (0.2-1.0) Ur Leukocyte Esterase (Negative) Urine RBC (0-2) Urine WBC (0-5) Ur Squamous Epith Cells (None-Few) Urine Bacteria (None) SARS-CoV-2 (PCR) (Negative) ECG Data Attestation: I personally reviewed and interpreted this ECG as follows: (1. Absent P wave ventricular rate of low 50s wider QRS complex 2. Following potassium correction P waves now evident sinus bradycardia ) Critical Care Time Critical Care Time Critical Care Time: Yes Attestation: The patient required my highest level preparedness to intervene emergently and I personally spent this critical care time directly and personally managing the patient. This critical care time included: Obtaining a history; Examining the patient; Pulse oximetry; Ordering and reviewing of studies; Arranging urgent treatment with development of a management plan; Evaluation of patients response to treatment; Frequent reassessment discussions with other providers. This critical care time was performed to assess and manage the high probability of imminent life-threatening deterioration that could result in multiorgan failure. It was exclusive of separate billable procedures and treating other patients and teaching time. Total Critical Care Time in Minutes: 50 Discharge Plan Discharge Clinical Impression: Weakness, LUPE (acute kidney injury), Dehydration, Adult failure to thrive, Pneumonia, Acute hyperkalemia, Acute hyponatremia Patient Disposition: Admitted As Inpatient Condition: Improved
[2023-03-02] MEDS: 0.9 % SODIUM CHLORIDE 1000 ml 1,000 ML IV (23:55)
[2023-03-03] VITALS (68 sets, daily range): BP systolic 78–149; BP diastolic 37–96; PULSE 44–74; RESP 16; TEMP 36.2–36.9; O2SAT 58–100; BMI 16.8
[2023-03-03 00:01] LABS: Lactate* 1.8 mmol/L (0.5-1.9)
[2023-03-03 00:02] LABS: Basophils Percent Auto 0.3 % (0.0-3.0); Eosinophils Percent Auto 0.7 % (0.0-7.0); Hematocrit 43.3 % (33.0-51.0); Hemoglobin* 15.3 gm/dL (12.0-16.0); Immature Granulocytes Pct Auto 0.1 %; Lymphocytes Percent Auto 12.5 % (20-44); Mean Corpuscular HGB Conc 35 gm/dL (32-36); Mean Corpuscular Hemoglobin 30 pg (26-34); Mean Corpuscular Volume 83 fL (80-100); Monocytes Percent Auto 7.2 % (0.0-11.0); Neutrophils Percent Auto 79.2 % (42.0-72.0); Platelet Count* 285 K/uL (140-440); RDW Coefficient of Variation % 12.8 % (11.5-15.5); Red Blood Count 5.19 m/uL (4.00-5.20); White Blood Count* 15.49 K/uL (4.50-11.00)
[2023-03-03 00:08] LABS: Slide Review Reflex No
[2023-03-03 00:16] LABS: Albumin* 4.5 g/dL (3.3-5.0); Chloride* 84 mmol/L (96-114)
[2023-03-03 00:18] LABS: Creatinine* 2.1 mg/dL (0.5-1.5); Estimated Glomerular Filt Rate 23 ml/min
[2023-03-03 00:19] LABS: Alanine Aminotransferase* 28 U/L (4-35); Alkaline Phosphatase* 203 U/L (40-150); Aspartate Amino Transferase* 32 U/L (12-35); Bilirubin Direct* 0.3 mg/dL (0.0-0.5); Bilirubin Total* 1.4 mg/dL (0.1-1.5); Blood Urea Nitrogen* 57 mg/dL (7-30); Carbon Dioxide* 24 mmol/L (20-32); Glucose* 282 mg/dL (60-115); Total Protein* 7.3 g/dL (6.0-8.3)
[2023-03-03 00:20] LABS: Calcium* 9.8 mg/dL (8.4-10.6); Magnesium* 2.4 mg/dL (1.5-2.6)
[2023-03-03 00:21] LABS: Sodium* 115 mmol/L (135-149)
[2023-03-03 00:22] LABS: C Reactive Protein* 2.1 mg/dL (0.5-1.0); Potassium* 7.5 mmol/L (3.6-5.1)
[2023-03-03 00:36] LABS: Procalcitonin* 0.51 ng/mL (<0.50)
[2023-03-03 00:39] LABS: NT Pro B Type NatriureticPept* 6520 pg/mL; SARS PCR* Negative SARS-CoV-2 (Negative)
[2023-03-03] MEDS: DEXTROSE 50 % SYRINGE IVP ×2 (00:57→12:18)
[2023-03-03 02:19] LABS: Chloride* 88 mmol/L (96-114)
[2023-03-03 02:22] LABS: Blood Urea Nitrogen* 55 mg/dL (7-30); Carbon Dioxide* 23 mmol/L (20-32); Creatinine* 1.9 mg/dL (0.5-1.5); Estimated Glomerular Filt Rate 26 ml/min
[2023-03-03 02:23] LABS: Calcium* 9.4 mg/dL (8.4-10.6); Glucose* 317 mg/dL (60-115)
[2023-03-03 02:26] LABS: Potassium* 6.8 mmol/L (3.6-5.1); Sodium* 117 mmol/L (135-149)
--- NOTE | 2023-03-03 03:06 | CRLHL7_ITS ---
For Patients: As a result of the Century Cures Act, medical imaging exams and procedure reports are released immediately into your electronic medical record. You may view this report before your referring provider. If you have questions, please contact your health care provider. INDICATION: elevated WBC TECHNIQUE: Chest 1 views. COMPARISON: Chest x-ray August 01, 2022 FINDINGS: Cardiovascular and mediastinum: Stable heart size. Lungs and pleural spaces: Low lung volumes. Bibasilar airspace opacities which may represent atelectasis or developing pneumonia. No effusion or pneumothorax. Bones and soft tissues: No significant findings. IMPRESSION: Low lung volumes with bibasilar airspace opacities which may represent atelectasis or developing pneumonia. Dictated by Minh Barnes MD @ 03/03/2023 5:03:33 AM (Electronically Signed)
--- NOTE | 2023-03-03 03:06 | CRLHL7_ITS ---
For Patients: As a result of the Century Cures Act, medical imaging exams and procedure reports are released immediately into your electronic medical record. You may view this report before your referring provider. If you have questions, please contact your health care provider. INDICATION: elevated wbc... abd pain unable to get verbal history TECHNIQUE: CT abdomen and pelvis without contrast. COMPARISON: CT abdomen pelvis May 27, 2022. FINDINGS: The liver is normal in size, shape and attenuation. Status post cholecystectomy with similar compensatory dilatation of the CBD. The spleen, adrenal glands and pancreas are within normal limits. The kidneys are unremarkable. Severe distention of the urinary bladder without wall thickening. There is likely associated mild right hydronephrosis. No evidence of bowel obstruction. Right ventral ostomy again noted. No significant free fluid and no free air. Abdominal aorta normal caliber with moderate atherosclerosis of the aortoiliac vessels. Pelvic organs are unremarkable. Bibasilar airspace opacities concerning for pneumonia and/or aspiration No evidence of acute fracture. Remote osteopenia. Remote inferior pubic ramus fracture. Multilevel chronic compression deformities. Redemonstrated chronic sacral insufficiency fractures. IMPRESSION: 1. Severe distention of the urinary bladder without wall thickening. There is likely associated mild right hydronephrosis. Consider [place] catheter decompression. 2. Bibasilar airspace opacities concerning for pneumonia and/or aspiration 3. Redemonstration of multiple chronic compression deformities and pelvic fractures. Please note that all CT scans at this facility use dose modulation, iterative reconstruction, and/or weight-based dosing when appropriate to reduce radiation dose to as low as reasonably achievable. Dictated by Minh Barnes MD @ 03/03/2023 5:11:58 AM (Electronically Signed)
--- NOTE | 2023-03-03 03:40 | PC.NURSE ---
updated [facility] staff that patient is being admitted to the hospital. no further questions.
[2023-03-03 05:17] LABS: Appearance Urine Clear (Clear); Bilirubin Urine Negative (Negative); Blood Urine Negative (Negative); Color Urine Yellow (Yellow); Glucose Urine 1+ (Negative); Ketones Urine Negative (Negative); Leukocyte Esterase Urine Negative (Negative); Nitrite Urine Negative (Negative); Protein Urine Negative (Negative); Specific Gravity Urine 1.015 (1.000-1.030); Urobilinogen Urine 0.2 (0.2-1.0)
[2023-03-03 05:26] LABS: Chloride* 90 mmol/L (96-114)
[2023-03-03 05:27] LABS: RBC Urine 0-2 (0-2); Squamous Epithelial Cell Urine Few (None-Few); WBC Urine 0-2 (0-5)
[2023-03-03 05:28] LABS: Creatinine* 1.8 mg/dL (0.5-1.5); Estimated Glomerular Filt Rate 27 ml/min
[2023-03-03 05:29] LABS: Blood Urea Nitrogen* 52 mg/dL (7-30); Calcium* 9.5 mg/dL (8.4-10.6); Carbon Dioxide* 21 mmol/L (20-32); Glucose* 243 mg/dL (60-115)
[2023-03-03 05:31] LABS: Sodium* 118 mmol/L (135-149)
[2023-03-03 05:32] LABS: Potassium* 6.5 mmol/L (3.6-5.1)
--- NOTE | 2023-03-03 06:10 | ED.NURSE ---
Patient straight-cathed for UA per MD order. Colostomy bag leaking and is changed at 64mm. Stoma is WNL.
--- NOTE | 2023-03-03 06:37 | W.PM.CROSSCO ---
Assessment and Plan Assessment and plan (1) LUPE (acute kidney injury): Status: Acute (2) Dehydration: Status: Acute (3) Weakness: Status: Acute (4) Acute hyperkalemia: Status: Acute (5) Acute hyponatremia: Status: Acute (6) Type 1 diabetes mellitus: Status: Acute (7) High output ileostomy: Problem comment: Imodium seem to be effective for this. Status: Acute (8) Chronic pain: Status: Acute (9) Adrenal insufficiency: Problem comment: She received stress dose steroids, return to her normal dose of hydrocortisone Status: Acute Plan [facility] Hospitalist Consultation 87-year-old female brought into the ER from her care center that she normally resides. There is reported history of nausea and vomiting and she does complain about being nauseated however she was having difficulty providing history at the time of her initial evaluation. It is reported she has recently been having poor oral intake and mental health difficulties ongoing nausea and declined oral intake. She is diabetic on insulin and has high output ostomy which further complicates the history of poor oral intake. On arrival she was bradycardic and her EKG was described as absent P waves. She was found to be severely hyperkalemic with a potassium of 7.5. She was treated with a liter of fluids calcium insulin dextrose and bradycardia improved heart rate in the 50s blood pressure in the 90s systolic. Serial potassium down to 6.8. Initial sodium also quite low at 115. Baseline a few weeks prior was 126. Acute kidney injury noted with a creatinine of 2.1 with last check of 1.0. She was not acidotic with a CO2 of 21. Lactic acid also normal. WBC 15.49. LFTs within normal limits with exception of alk phos. CRP elevated at 2.1 with procalcitonin 1.5. Urinalysis does not show any evidence of infection. She was described as having tender abdomen and CT abdomen pelvis was not obtained. This did show a distended bladder with hydronephrosis on the left. There is no biliary obstruction. Did demonstrate bibasilar air proximal opacities concerning for pneumonia and/or aspiration. 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 facial muscles grossly intact, moves all extremities without any significant focal deficit appreciated by nurse Assessment and Plan: LUPE Hyperkalemia, severe with arrhythmia: improving Hyponatremia (corrected to 118) Suspect combination of volume depletion/prerenal source and acute urinary retention as seen on CT. 1300cc given in ER, will give additional 1000cc @200cc/hr. Will need to reassess after that time. K trending down Serial BNP with goal of Na to correct no more than 10 in 24 hrs with chronic low grade hyponatremia with baseline low 130 but most recently 126 monitor on tele. Initally planned ICU stay however with K trending down ok to admit to floor Urinary retention bladder distension on CT. 300 straight cath after unlikely full volume Monroe cath ordered. Unclear source of retenion, ua without infection Pneumonia Aspiration vs infiltrate on CT. Initiation of ceftriaxone 2g daily Adrenal insufficiency 25mg IV hydrocortisone BID ordered for now with acute stress DM on insulin Low dose SSI NPH 10u daily (home is 13 glargline daily) ordered [facility] you [facility]. This service is available for further assistance as requested by your care team by calling [phone]. Chronic pain Avoid long acting morphine with LUPE PRN oxy available 5-10mg Ileostomy Monitor output, has causes electrolyte disturbance in the past HOME MEDS Not yet reconciled or ordered, few meds ordered as above DVT ppx: heparin BID Code status: DNR/DNI - confirmed with patient
[2023-03-03] MEDS: 0.9 % SODIUM CHLORIDE 1000 ml 1,000 ML 200 ML IV (07:28)
[2023-03-03] MEDS: cefTRIAXone 1 GM in 0.9 % SODIUM CHLORIDE Mini-bag 100 ML IVPB (07:28)
[2023-03-03] MEDS: OXYCODONE 5 MG TABLET PO (07:28)
--- NOTE | 2023-03-03 08:42 | REH.OT ---
OT/PT: Orders received, chart reviewed and pt not yet medically appropriate. OT/PT will hold per and zach when appropriate.
[2023-03-03] MEDS: PIPERACILLIN/TAZOBACTAM 2.25 GM in 0.9 % SODIUM CHLORIDE Mini-bag 100 ML IVPB ×2 (08:58→15:13)
[2023-03-03] MEDS: HEPARIN 5,000 UNIT/0.5 ML INJ 5000 UNIT SUBCUT (08:59)
[2023-03-03] MEDS: HYDROCORTISONE SOD SUCCINATE 50 MG/ML inj 100 MG IVP (09:00)
--- NOTE | 2023-03-03 11:11 | P.IMHP_ITS ---
Hospitalist- H&P: HPI History of Present Illness Date Seen: 03/03/23 Chief complaint: General Malaise Narrative: Shira Stauffer is a 87 year old female nausea, not eating for 24 hours trouble with ostomy bag, picking at it, emptying it and changing it herself frequently body image issues, thinks she's getting fat even though she's losing weight, always been thin and concerned about body image. stopped going to [employer], which she loves [facility] [phone] yesterday donated clothes and bought oversized clothes dtr Gianna Vegas [phone] recently started zoloft [facility] Medical History (Updated 03/03/23 @ 06:09 by Edmund Corbin MD) Abnormal liver enzymes ?R74.8 - Abnormal levels of other serum enzymes (ICD-10) Adrenal insufficiency ?E27.40 - Unspecified adrenocortical insufficiency (ICD-10) Anxiety ?F41.9 - Anxiety disorder, unspecified (ICD-10) Asthma ?J45.909 - Unspecified asthma, uncomplicated (ICD-10) 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 - Atherosclerotic heart disease of [place] coronary artery without angina pectoris (ICD-10) Cataract ?H26.9 - Unspecified cataract (ICD-10) Chronic kidney disease (CKD) stage G3a/A1, moderately decreased glomerular filtration rate (GFR) between 45-59 mL/min/1.73 square meter and albuminuria creatinine ratio less than 30 mg/g ?N18.31 - Chronic kidney disease, stage 3a (ICD-10) Constipation ?K59.00 - Constipation, unspecified (ICD-10) Convulsions ?R56.9 - Unspecified convulsions (ICD-10) Dementia ?F03.90 - Unspecified dementia without behavioral disturbance (ICD-10) Diabetes mellitus type 1 ?E10.9 - Type 1 diabetes mellitus without complications (ICD-10) Dorsalgia ?M54.9 - Dorsalgia, unspecified (ICD-10) GERD (gastroesophageal reflux disease) ?K21.9 - Gastro-esophageal reflux disease without esophagitis (ICD-10) Health care directive on file ?Z78.9 - Other specified health status (ICD-10) High output ileostomy ?R19.8 - Other specified symptoms and signs involving the digestive system and abdomen (ICD-10) ?Z93.2 - Ileostomy status (ICD-10) Hyperkalemia ?E87.5 - Hyperkalemia (ICD-10) Hyperlipidemia ?E78.5 - Hyperlipidemia, unspecified (ICD-10) Hyponatremia ?E87.1 - Hypo-osmolality and hyponatremia (ICD-10) Hypothyroidism ?E03.9 - Hypothyroidism, unspecified (ICD-10) Osteoarthritis ?M19.90 - Unspecified osteoarthritis, unspecified site (ICD-10) Pelvic fracture ?S32.9XXA - Fracture of unspecified parts of lumbosacral spine and pelvis, initial encounter for closed fracture (ICD-10) POLST (Physician Orders for Life-Sustaining Treatment) ?Z78.9 - Other specified health status (ICD-10) Postmenopausal atrophic vaginitis ?N95.2 - Postmenopausal atrophic vaginitis (ICD-10) Pressure ulcer of sacral region, unstageable ?L89.150 - Pressure ulcer of sacral region, unstageable (ICD-10) Primary adrenocortical insufficiency ?E27.1 - Primary adrenocortical insufficiency (ICD-10) Primary hypertension ?I10 - Essential (primary) hypertension (ICD-10) Type 1 diabetes mellitus ?E10.9 - Type 1 diabetes mellitus without complications (ICD-10) Unspecified dementia without behavioral disturbance ?F03.90 - Unspecified dementia without behavioral disturbance (ICD-10) Vertebral fracture Surgical History (Updated 06/04/22 @ 00:01 by Harriet Butts) H/O angioplasty ?Z98.62 - Peripheral vascular angioplasty status (ICD-10) H/O mastoidectomy ?Z90.89 - Acquired absence of other organs (ICD-10) No significant past surgical history S/P appendectomy ?Z90.49 - Acquired absence of other specified parts of digestive tract (ICD- 10) S/P laparoscopic cholecystectomy ?Z90.49 - Acquired absence of other specified parts of digestive tract (ICD- 10) S/P small bowel resection ?Z90.49 - Acquired absence of other specified parts of digestive tract (ICD- 10) Social History (Updated 05/02/22 @ 17:42 by Evita Mccracken MD) Narrative: Patient lives in a senior care. Highest level of school completed/degree received: don't know Smoking Status: Never smoker Do you use any of these nicotine containing products: None Second hand tobacco smoke exposure: No How often do you have a drink containing alcohol: never How often do you have six or more drinks on one occasion: Never AUDIT-C Alcohol total score: 0 Non-prescribed substance use: denies use Caffeine: No service: No Meds Home Medications and Allergies Home Medications Medication Instructions Recorded Confirmed Type cholecalciferol (vitamin D3) 50 4,000 unit PO HS 05/02/22 03/03/23 History mcg (2,000 unit) tablet coenzyme Q10 100 mg capsule 100 mg PO HS 05/02/22 03/03/23 History estradiol 0.01% (0.1 mg/gram) 1 appful vaginal MOTH 05/02/22 03/03/23 History vaginal cream famotidine 20 mg tablet 20 mg PO BID 05/02/22 03/03/23 History hydrocortisone 5 mg tablet 7.5 - 15 mg PO BID 05/02/22 03/03/23 History insulin glargine 100 unit/mL (3 13 unit subcut HS 05/02/22 03/03/23 History mL) subcutaneous pen (Lantus Solostar U-100 Insulin) insulin lispro 100 unit/mL 4 - 5 unit subcut TIDWM 05/02/22 03/03/23 History subcutaneous pen (Humalog KwikPen (U-100) Insulin) lactobacillus combination no.4 3 3,000 mmu cells PO DAILY 05/02/22 03/03/23 History billion cell capsule (Probiotic) levothyroxine 75 mcg tablet 75 mcg PO DAILY 05/02/22 03/03/23 History morphine 15 mg tablet,extended 15 mg PO TID 05/02/22 03/03/23 History release multivit-iron 18 mg-folic acid 400 1 tab PO DAILY 05/02/22 03/03/23 History mcg-calcium 500 mg-minerals tablet (Women's One Daily) olopatadine 0.2 % eye drops 1 drp ophthalmic (eye) DAILY 05/02/22 03/03/23 History oxycodone 5 mg tablet 5 mg PO Q6H PRN 05/02/22 03/03/23 History vitamin B complex (Vitamins B 1 cap PO HS 05/02/22 03/03/23 History Complex capsule) acetaminophen 500 mg capsule 1,000 mg PO QID PRN 05/28/22 03/03/23 History metoprolol tartrate 25 mg tablet 25 mg PO BID 05/28/22 03/03/23 History ondansetron HCl 4 mg tablet 4 mg PO Q6H PRN 05/28/22 03/03/23 History simethicone 80 mg chewable tablet 80 mg PO BID 05/28/22 03/03/23 History aspirin 81 mg chewable tablet 81 mg PO DAILY@1200 03/03/23 03/03/23 History fludrocortisone 0.1 mg tablet 0.1 mg PO DAILY 03/03/23 03/03/23 History furosemide 20 mg tablet 10 mg PO DAILY 03/03/23 03/03/23 History glucose 4 gram chewable tablet 4 g PO Q15M PRN 03/03/23 03/03/23 History (Dex4 Glucose) methylcellulose (laxative) 1 tbsp PO DAILY 03/03/23 03/03/23 History saliva stimulant comb. no.3 1 applic mucous membrane Q1H PRN 03/03/23 03/03/23 History (Biotene Moisturizing Mouth mucosal spray) sertraline 50 mg tablet 50 mg PO DAILY 03/03/23 03/03/23 History sodium bicarbonate 650 mg tablet 650 mg PO TIDWM 03/03/23 03/03/23 History Allergies Allergy/AdvReac Type Severity Reaction Status Date / Time adhesive tape Allergy Mild Rash Verified 01/15/23 10:18 diclofenac Allergy Unknown Verified 01/15/23 10:18 aspartame Allergy Verified 01/15/23 10:18 beclomethasone Allergy Verified 01/15/23 10:18 bisacodyl Allergy Verified 01/15/23 10:18 dexamethasone Allergy Verified 01/15/23 10:18 doxycycline Allergy Verified 01/15/23 10:18 erythromycin base Allergy Verified 01/15/23 10:18 gabapentin Allergy Verified 01/15/23 10:18 hydrochlorothiazide Allergy Verified 01/15/23 10:18 lactase [From Dairy Aid] Allergy Verified 01/15/23 10:18 meclizine Allergy Verified 01/15/23 10:18 metformin Allergy Verified 01/15/23 10:18 metoclopramide Allergy Verified 01/15/23 10:18 nabumetone [From Relafen] Allergy Verified 01/15/23 10:18 propranolol Allergy Verified 01/15/23 10:18 raloxifene Allergy Verified 01/15/23 10:18 ramipril Allergy Verified 01/15/23 10:18 tobramycin Allergy Verified 01/15/23 10:18 venlafaxine Allergy Verified 01/15/23 10:18 Exam Const: Vital Signs, click to edit/add: Vital Signs - 24 hr 03/02/23 22:48 03/03/23 00:02 03/03/23 00:34 Temperature 98.1 F Pulse Rate 49 L Pulse Rate [Left A pical] Pulse Rate [Left P ulse Oximeter] Pulse Rate [Pulse Oximeter] 66 Respiratory Rate 18 Blood Pressure 111/46 L Blood Pressure [Le ft Arm] Blood Pressure [Le ft Upper Arm] 102/63 Pulse Oximetry 98 98 95 Oxygen Delivery Me thod Room Air Oxygen Flow Rate 03/03/23 00:35 03/03/23 00:45 03/03/23 00:47 Temperature Pulse Rate 57 L 53 L 57 L Pulse Rate [Left A pical] Pulse Rate [Left P ulse Oximeter] Pulse Rate [Pulse Oximeter] Respiratory Rate Blood Pressure 109/45 L Blood Pressure [Le ft Arm] Blood Pressure [Le ft Upper Arm] Pulse Oximetry 96 92 95 Oxygen Delivery Me thod Oxygen Flow Rate 03/03/23 01:02 03/03/23 01:02 03/03/23 01:03 Temperature Pulse Rate 48 L 48 L 51 L Pulse Rate [Left A pical] Pulse Rate [Left P ulse Oximeter] Pulse Rate [Pulse Oximeter] Respiratory Rate Blood Pressure 88/43 L 88/43 L Blood Pressure [Le ft Arm] Blood Pressure [Le ft Upper Arm] Pulse Oximetry 91 91 92 Oxygen Delivery Me thod Oxygen Flow Rate 03/03/23 01:05 03/03/23 01:15 03/03/23 01:17 Temperature Pulse Rate 55 L 53 L 52 L Pulse Rate [Left A pical] Pulse Rate [Left P ulse Oximeter] Pulse Rate [Pulse Oximeter] Respiratory Rate Blood Pressure 131/43 L 129/46 L Blood Pressure [Le ft Arm] Blood Pressure [Le ft Upper Arm] Pulse Oximetry 94 98 91 Oxygen Delivery Me thod Oxygen Flow Rate 03/03/23 01:19 03/03/23 01:30 03/03/23 01:32 Temperature Pulse Rate 52 L 52 L 53 L Pulse Rate [Left A pical] Pulse Rate [Left P ulse Oximeter] Pulse Rate [Pulse Oximeter] Respiratory Rate Blood Pressure 96/57 L Blood Pressure [Le ft Arm] Blood Pressure [Le ft Upper Arm] Pulse Oximetry 96 93 92 Oxygen Delivery Me thod Oxygen Flow Rate 03/03/23 01:33 03/03/23 01:45 03/03/23 01:47 Temperature Pulse Rate 51 L 57 L 61 Pulse Rate [Left A pical] Pulse Rate [Left P ulse Oximeter] Pulse Rate [Pulse Oximeter] Respiratory Rate Blood Pressure 134/96 H Blood Pressure [Le ft Arm] Blood Pressure [Le ft Upper Arm] Pulse Oximetry 100 94 96 Oxygen Delivery Me thod Oxygen Flow Rate 03/03/23 01:57 03/03/23 02:00 03/03/23 02:01 Temperature Pulse Rate 62 54 L 61 Pulse Rate [Left A pical] Pulse Rate [Left P ulse Oximeter] Pulse Rate [Pulse Oximeter] Respiratory Rate Blood Pressure 149/53 H 133/53 L 128/52 L Blood Pressure [Le ft Arm] Blood Pressure [Le ft Upper Arm] Pulse Oximetry 93 95 94 Oxygen Delivery Me thod Oxygen Flow Rate 03/03/23 02:02 03/03/23 02:03 03/03/23 02:15 Temperature Pulse Rate 54 L 52 L 51 L Pulse Rate [Left A pical] Pulse Rate [Left P ulse Oximeter] Pulse Rate [Pulse Oximeter] Respiratory Rate Blood Pressure 128/54 L Blood Pressure [Le ft Arm] Blood Pressure [Le ft Upper Arm] Pulse Oximetry 96 96 94 Oxygen Delivery Me thod Oxygen Flow Rate 03/03/23 02:17 03/03/23 02:18 03/03/23 02:30 Temperature Pulse Rate 52 L 49 L 47 L Pulse Rate [Left A pical] Pulse Rate [Left P ulse Oximeter] Pulse Rate [Pulse Oximeter] Respiratory Rate Blood Pressure 78/51 L 114/51 L Blood Pressure [Le ft Arm] Blood Pressure [Le ft Upper Arm] Pulse Oximetry 96 96 95 Oxygen Delivery Me thod Oxygen Flow Rate 03/03/23 02:32 03/03/23 02:45 03/03/23 02:47 Temperature Pulse Rate 46 L 48 L 48 L Pulse Rate [Left A pical] Pulse Rate [Left P ulse Oximeter] Pulse Rate [Pulse Oximeter] Respiratory Rate Blood Pressure 94/76 113/58 L Blood Pressure [Le ft Arm] Blood Pressure [Le ft Upper Arm] Pulse Oximetry 95 94 95 Oxygen Delivery Me thod Oxygen Flow Rate 03/03/23 03:00 03/03/23 03:02 03/03/23 03:15 Temperature Pulse Rate 51 L 48 L 48 L Pulse Rate [Left A pical] Pulse Rate [Left P ulse Oximeter] Pulse Rate [Pulse Oximeter] Respiratory Rate Blood Pressure 113/54 L Blood Pressure [Le ft Arm] Blood Pressure [Le ft Upper Arm] Pulse Oximetry 94 95 95 Oxygen Delivery Me thod Oxygen Flow Rate 03/03/23 03:17 03/03/23 03:30 03/03/23 03:32 Temperature Pulse Rate 44 L 45 L 47 L Pulse Rate [Left A pical] Pulse Rate [Left P ulse Oximeter] Pulse Rate [Pulse Oximeter] Respiratory Rate Blood Pressure 107/45 L 79/54 L Blood Pressure [Le ft Arm] Blood Pressure [Le ft Upper Arm] Pulse Oximetry 96 96 95 Oxygen Delivery Me thod Oxygen Flow Rate 03/03/23 03:33 03/03/23 03:45 03/03/23 03:47 Temperature Pulse Rate 48 L 45 L 51 L Pulse Rate [Left A pical] Pulse Rate [Left P ulse Oximeter] Pulse Rate [Pulse Oximeter] Respiratory Rate Blood Pressure 101/56 L 78/56 L Blood Pressure [Le ft Arm] Blood Pressure [Le ft Upper Arm] Pulse Oximetry 93 95 93 Oxygen Delivery Me thod Oxygen Flow Rate 03/03/23 03:49 03/03/23 04:00 03/03/23 04:02 Temperature Pulse Rate 51 L 50 L 54 L Pulse Rate [Left A pical] Pulse Rate [Left P ulse Oximeter] Pulse Rate [Pulse Oximeter] Respiratory Rate Blood Pressure 106/49 L 103/50 L Blood Pressure [Le ft Arm] Blood Pressure [Le ft Upper Arm] Pulse Oximetry 95 94 90 Oxygen Delivery Me thod Oxygen Flow Rate 03/03/23 04:45 03/03/23 04:46 03/03/23 04:47 Temperature Pulse Rate 55 L 52 L 52 L Pulse Rate [Left A pical] Pulse Rate [Left P ulse Oximeter] Pulse Rate [Pulse Oximeter] Respiratory Rate Blood Pressure 115/42 L 108/41 L Blood Pressure [Le ft Arm] Blood Pressure [Le ft Upper Arm] Pulse Oximetry 95 81 L 85 L Oxygen Delivery Me thod Oxygen Flow Rate 03/03/23 05:02 03/03/23 05:22 03/03/23 05:30 Temperature Pulse Rate Pulse Rate [Left A pical] Pulse Rate [Left P ulse Oximeter] Pulse Rate [Pulse Oximeter] Respiratory Rate Blood Pressure 127/83 Blood Pressure [Le ft Arm] Blood Pressure [Le ft Upper Arm] Pulse Oximetry 82 L 65 L Oxygen Delivery Me thod Oxygen Flow Rate 03/03/23 05:32 03/03/23 05:45 03/03/23 05:47 Temperature Pulse Rate Pulse Rate [Left A pical] Pulse Rate [Left P ulse Oximeter] Pulse Rate [Pulse Oximeter] Respiratory Rate Blood Pressure 128/77 114/45 L Blood Pressure [Le ft Arm] Blood Pressure [Le ft Upper Arm] Pulse Oximetry 63 L 73 L 67 L Oxygen Delivery Me thod Oxygen Flow Rate 03/03/23 06:00 03/03/23 06:02 03/03/23 06:15 Temperature Pulse Rate 55 L Pulse Rate [Left A pical] Pulse Rate [Left P ulse Oximeter] Pulse Rate [Pulse Oximeter] Respiratory Rate Blood Pressure 133/54 L Blood Pressure [Le ft Arm] Blood Pressure [Le ft Upper Arm] Pulse Oximetry 66 L 58 L 93 Oxygen Delivery Me thod Oxygen Flow Rate 03/03/23 06:17 03/03/23 06:30 03/03/23 06:33 Temperature Pulse Rate 55 L 47 L 55 L Pulse Rate [Left A pical] Pulse Rate [Left P ulse Oximeter] Pulse Rate [Pulse Oximeter] Respiratory Rate Blood Pressure 107/59 L 95/42 L Blood Pressure [Le ft Arm] Blood Pressure [Le ft Upper Arm] Pulse Oximetry 92 93 96 Oxygen Delivery Me thod Oxygen Flow Rate 03/03/23 06:45 03/03/23 06:47 03/03/23 07:00 Temperature Pulse Rate 54 L 50 L Pulse Rate [Left A pical] Pulse Rate [Left P ulse Oximeter] Pulse Rate [Pulse Oximeter] Respiratory Rate Blood Pressure 96/47 L Blood Pressure [Le ft Arm] Blood Pressure [Le ft Upper Arm] Pulse Oximetry 95 95 77 L Oxygen Delivery Me thod Oxygen Flow Rate 03/03/23 07:02 03/03/23 07:45 03/03/23 07:48 Temperature 97.5 F L Pulse Rate 54 L Pulse Rate [Left A pical] 49 L Pulse Rate [Left P ulse Oximeter] Pulse Rate [Pulse Oximeter] Respiratory Rate 16 Blood Pressure 111/83 Blood Pressure [Le ft Arm] 124/78 Blood Pressure [Le ft Upper Arm] Pulse Oximetry 63 L 99 Oxygen Delivery Me thod OxyMask Oxygen Flow Rate 3 03/03/23 09:38 03/03/23 07:48 03/03/23 08:10 Temperature 97.5 F L Pulse Rate Pulse Rate [Left A pical] 49 L Pulse Rate [Left P ulse Oximeter] 49 L Pulse Rate [Pulse Oximeter] Respiratory Rate 16 16 Blood Pressure Blood Pressure [Le ft Arm] 129/48 L Blood Pressure [Le ft Upper Arm] Pulse Oximetry 98 99 99 Oxygen Delivery Me thod Nasal Cannula OxyM ask OxyMask Oxygen Flow Rate 3 03/03/23 11:00 Temperature 98.4 F Pulse Rate Pulse Rate [Left A pical] 56 L Pulse Rate [Left P ulse Oximeter] 56 L Pulse Rate [Pulse Oximeter] Respiratory Rate 16 Blood Pressure Blood Pressure [Le ft Arm] 125/56 L Blood Pressure [Le ft Upper Arm] Pulse Oximetry 95 Oxygen Delivery Me thod Room Air Oxygen Flow Rate Hospitalist - H&P: Result Labs Labs: Short CBC 03/02/23 Range/Units 23:55 WBC 15.49 H (4.50-11.00) K/uL Hgb 15.3 (12.0-16.0) gm/dL Hct 43.3 (33.0-51.0) % Plt Count 285 (140-440) K/uL BMP 03/02/23 03/03/23 03/03/23 23:55 02:00 05:00 Sodium 115 L* 117 L* 118 L* Potassium 7.5 H* 6.8 H* 6.5 H* Chloride 84 L 88 L 90 L Carbon Dioxide 24 23 21 BUN 57 H 55 H 52 H Creatinine 2.1 H 1.9 H 1.8 H Glucose 282 H 317 H 243 H Calcium 9.8 9.4 9.5 Liver Function 03/02/23 Range/Units 23:55 Total Bilirubin 1.4 (0.1-1.5) mg/dL Direct Bilirubin 0.3 (0.0-0.5) mg/dL AST 32 (12-35) U/L ALT 28 (4-35) U/L Alkaline Phosphatase 203 H (40-150) U/L Albumin 4.5 (3.3-5.0) g/dL Urine 03/03/23 Range/Units 04:55 Urine Color Yellow (Yellow) Urine Appearance Clear (Clear) Urine pH 5.0 (5.0-8.5) Ur Specific [place] 1.015 (1.000-1.030) Urine Protein Negative (Negative) Urine Glucose (UA) 1+ A (Negative)
[2023-03-03 11:47] LABS: Chloride* 94 mmol/L (96-114)
[2023-03-03 11:50] LABS: Blood Urea Nitrogen* 48 mg/dL (7-30); Calcium* 8.8 mg/dL (8.4-10.6); Carbon Dioxide* 18 mmol/L (20-32); Creatinine* 1.6 mg/dL (0.5-1.5); Est. Creatinine Clearance* 18.04; Estimated Glomerular Filt Rate 31 ml/min; Glucose* 299 mg/dL (60-115)
[2023-03-03 11:55] LABS: Sodium* 118 mmol/L (135-149)
[2023-03-03] MEDS: ALBUTEROL SULFATE 1.25 MG/3 ML VIAL.NEB 2.5 MG NEB (12:16)
[2023-03-03] MEDS: FUROSEMIDE 10 MG/ML inj 40 MG IVP (13:03)
[2023-03-03] MEDS: 0.9 % SODIUM CHLORIDE 1000 ml 1,000 ML 500 ML IV (13:04)
--- NOTE | 2023-03-03 13:10 | PC.SOCIAL ---
Alfred. is from the [facility] and is on a bed hold.
[2023-03-03] MEDS: SODIUM BICARBONATE 50 MEQ/50ML SYRINGE IVP ×2 (14:08→15:17)
[2023-03-03] MEDS: MAGNESIUM IV 2 GM/50 ML PIGGYBACK IVPB (14:09)
[2023-03-03 14:22] LABS: HCO3 VBG 20 mmol/L (21-28); PCO2 VBG 43 mmHG (40-50); PO2 VBG 34.7 mmHG (25-47); pH VBG 7.279 (7.32-7.43)
[2023-03-03] MEDS: INSULIN INF 100 UNIT/100 ML 100 UNIT/100 ML BAG IVPB (14:31)
[2023-03-03 14:46] LABS: Potassium* 5.9 mmol/L (3.6-5.1)
--- NOTE | 2023-03-03 14:48 | PC.NURSE ---
Pt admitted from ED via stretcher to CCU-2 for diagnosis of hyperkalemia,hyperglycemia, AMS and general malaise @ 0720 am. Pt has a new IV site #22 on left F/A. IV site on right AC fossa #20 is positional however it has brisk blood return. Initially pt required oxygen via 3L/oxymask, she has now been tapered to room air. Tele indicated sinus bradycardia with missed beats visible. Monroe catheter #16French inserted by Nora LANDRY. EKG completed, Dr. Landeros at bedside. Currently pt's tele indicates NSR, EKG repeated. Please see eMar for multiple meds given on day shift to help lower Becca's potassium level. BG level of 270, 310 and 356 on day shift. She is currently receiving an Insulin gtt at 5 units/5ml per hour. Her fluid bolus is on temporary hold while IV Magnesium sulfate infuses at 25cc/hr over 2 hours. RN held pt's MS contin 15 d/to her sleepiness and decreased orientation. Plan continuation of IV Zosyn and second hour of 500cc NS bolus when Magnesium is completed. Report given to Luna LANDRY at [facility], bed assignment is Clarissa Nassar 6 C. Pt's son Torey and dtr Gianna updated mid-morning on pt's condition. Dtr Gianna BUTCHER is aware of transfer pending to higher level of care. Please see hourly rounding sheet for interventions throughout the day.
--- NOTE | 2023-03-03 15:24 | PC.NURSE ---
Report provided to EMS and IV Walt diaz, sodium bicarbonate given IVP. Pt transferring via stretcher per EMS to 6c Clarissa Lewis at [facility] @ [phone].
--- NOTE | 2023-03-03 15:39 | P.SS_ITS ---
Same Day Admit/Disch: HPI History of Present Illness Time Seen by Provider: 07:30 Date Seen: 03/03/23 Chief complaint: General Malaise Narrative: Shira Stauffer is a 87 year old female with chronic adrenal insufficiency, type 1 diabetes mellitus, and high output ileostomy who presented through the emergency department for concerns of nausea, decreased appetite, and elevated blood sugars. The patient is unable to give me history. I spoke with her daughter, Gianna Vegas [phone], by phone helped to give history. Shira has a longstanding history of body image issues which have become more problematic lately. She currently lives in a [facility] where she has recently donated her clothes and what oversized closed saying that she is gaining weight and getting fat even though she is losing weight and she is thin to begin with. Her daughter tells me that she has generally been under 100 lb but recently was able to get her weight up above 100 lb at which time her behaviors started to become more evident. She normally lives going to [facility], but has stopped going in the last few weeks. She has been having a lot of trouble with her ostomy bag and keeps changing it herself frequently as well as picking at it. They have tried many things to try to get heard a stop, but she continues to do so. They were treating the area with nystatin for a while as well. In the last 24 hours she has become nauseous and has had no appetite. Her daughter notes that Shira recently started Zoloft. She was noted to have a blood glucose of 415 yesterday at the [facility]iary. Her daughter thought this was odd since she had not eaten anything. 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 (ICD-10) Adrenal insufficiency ?E27.40 - Unspecified adrenocortical insufficiency (ICD-10) Anxiety ?F41.9 - Anxiety disorder, unspecified (ICD-10) Anxiety disorder ?F41.9 - Anxiety disorder, unspecified (ICD-10) Asthma ?J45.909 - Unspecified asthma, uncomplicated (ICD-10) 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 - Atherosclerotic heart disease of [place] coronary artery without angina pectoris (ICD-10) Bacterial pneumonia (07/02/13) ?J15.9 - Unspecified bacterial pneumonia (ICD-10) Cataract ?H26.9 - Unspecified cataract (ICD-10) Chronic constipation (07/02/13) ?K59.09 - Other constipation (ICD-10) Chronic kidney disease (CKD) stage G3a/A1, moderately decreased glomerular filtration rate (GFR) between 45-59 mL/min/1.73 square meter and albuminuria creatinine ratio less than 30 mg/g ?N18.31 - Chronic kidney disease, stage 3a (ICD-10) Chronic pain ?G89.29 - Other chronic pain (ICD-10) Closed fracture of left inferior pubic ramus ?S32.592A - Other specified fracture of left pubis, initial encounter for closed fracture (ICD-10) Closed fracture of left side of symphysis pubis ?S32.592A - Other specified fracture of left pubis, initial encounter for closed fracture (ICD-10) Closed fracture of superior ramus of right pubis ?S32.511A - Fracture of superior rim of right pubis, initial encounter for closed fracture (ICD-10) Closed head injury ?S09.90XA - Unspecified injury of head, initial encounter (ICD-10) Compression fracture of L2 vertebra with delayed healing ?S32.020G - Wedge compression fracture of second lumbar vertebra, subsequent encounter for fracture with delayed healing (ICD-10) Compression fracture of vertebral column (07/26/13) ?M48.50XA - Collapsed vertebra, not elsewhere classified, site unspecified, initial encounter for fracture (ICD-10) Concussion (03/29/12) ?S06.0XAA - Concussion with loss of consciousness status unknown, initial encounter (ICD-10) Constipation ?K59.00 - Constipation, unspecified (ICD-10) Contusion of chest (03/31/12) ?S20.219A - Contusion of unspecified front wall of thorax, initial encounter (ICD-10) Convulsions ?R56.9 - Unspecified convulsions (ICD-10) Coronary artery disease ?I25.10 - Atherosclerotic heart disease of [place] coronary artery without angina pectoris (ICD-10) Dementia ?F03.90 - Unspecified dementia without behavioral disturbance (ICD-10) Diabetes mellitus type 1 ?E10.9 - Type 1 diabetes mellitus without complications (ICD-10) Diabetic gastroparesis (08/03/13) ?E11.43 - Type 2 diabetes mellitus with diabetic autonomic (poly)neuropathy (ICD-10) ?K31.84 - Gastroparesis (ICD-10) Diverticulitis of large intestine ?K57.32 - Diverticulitis of large intestine without perforation or abscess without bleeding (ICD-10) Dorsalgia ?M54.9 - Dorsalgia, unspecified (ICD-10) Epistaxis ?R04.0 - Epistaxis (ICD-10) Falls (03/31/12) ?W19.XXXA - Unspecified fall, initial encounter (ICD-10) Gastroesophageal reflux disease ?K21.9 - Gastro-esophageal reflux disease without esophagitis (ICD-10) GERD (gastroesophageal reflux disease) ?K21.9 - Gastro-esophageal reflux disease without esophagitis (ICD-10) Health care directive on file ?Z78.9 - Other specified health status (ICD-10) Hematoma of occipital region of scalp ?S00.03XA - Contusion of scalp, initial encounter (ICD-10) High output ileostomy ?R19.8 - Other specified symptoms and signs involving the digestive system and abdomen (ICD-10) ?Z93.2 - Ileostomy status (ICD-10) Hyperkalemia ?E87.5 - Hyperkalemia (ICD-10) Hyperkalemia (12/22/11) ?E87.5 - Hyperkalemia (ICD-10) Hyperlipidemia ?E78.5 - Hyperlipidemia, unspecified (ICD-10) Hyponatremia (12/22/11) ?E87.1 - Hypo-osmolality and hyponatremia (ICD-10) Hypothyroidism ?E03.9 - Hypothyroidism, unspecified (ICD-10) Impacted cerumen ?H61.20 - Impacted cerumen, unspecified ear (ICD-10) Irritable bowel syndrome ?K58.9 - Irritable bowel syndrome without diarrhea (ICD-10) Ketoacidosis due to diabetes mellitus (08/03/13) ?E11.10 - Type 2 diabetes mellitus with ketoacidosis without coma (ICD-10) Low back pain ?M54.50 - Low back pain, unspecified (ICD-10) Osteoarthritis ?M19.90 - Unspecified osteoarthritis, unspecified site (ICD-10) Osteoporosis ?M81.0 - Age-related osteoporosis without current pathological fracture (ICD-10) Pain in jaw not originating in temporomandibular joint ?R68.84 - Jaw pain (ICD-10) Pain of cervical spine ?M54.2 - Cervicalgia (ICD-10) Pelvic fracture ?S32.9XXA - Fracture of unspecified parts of lumbosacral spine and pelvis, initial encounter for closed fracture (ICD-10) POLST (Physician Orders for Life-Sustaining Treatment) ?Z78.9 - Other specified health status (ICD-10) Polypharmacy ?Z79.899 - Other half-way (current) drug therapy (ICD-10) Postmenopausal atrophic vaginitis ?N95.2 - Postmenopausal atrophic vaginitis (ICD-10) Pressure ulcer of sacral region, unstageable ?L89.150 - Pressure ulcer of sacral region, unstageable (ICD-10) Primary adrenocortical insufficiency ?E27.1 - Primary adrenocortical insufficiency (ICD-10) Primary hypertension ?I10 - Essential (primary) hypertension (ICD-10) Seizure ?R56.9 - Unspecified convulsions (ICD-10) Type 1 diabetes mellitus ?E10.9 - Type 1 diabetes mellitus without complications (ICD-10) Unspecified dementia without behavioral disturbance ?F03.90 - Unspecified dementia without behavioral disturbance (ICD-10) Unsteady gait ?R26.81 - Unsteadiness on feet (ICD-10) Vertebral fracture Surgical History H/O angioplasty ?Z98.62 - Peripheral vascular angioplasty status (ICD-10) H/O mastoidectomy ?Z90.89 - Acquired absence of other organs (ICD-10) No significant past surgical history S/P appendectomy ?Z90.49 - Acquired absence of other specified parts of digestive tract (ICD- 10) S/P laparoscopic cholecystectomy ?Z90.49 - Acquired absence of other specified parts of digestive tract (ICD- 10) S/P small bowel resection ?Z90.49 - Acquired absence of other specified parts of digestive tract (ICD- 10) Social History Narrative: Patient lives in a penitentiary. Highest level of school completed/degree received: don't know Smoking Status: Never smoker Do you use any of these nicotine containing products: None Second hand tobacco smoke exposure: No How often do you have a drink containing alcohol: never How often do you have six or more drinks on one occasion: Never AUDIT-C Alcohol total score: 0 Non-prescribed substance use: denies use Caffeine: No service: No Exam Narrative: Exam Narrative: General: No acute distress. Sleepy, arousable, but falls asleep right away again, occasional one-word answers. Oriented to self and place. Thin. HEENT: Normocephalic atraumatic, pupils equally round and reactive to light and accommodation. Oropharynx clear. Mucous membranes are moist. No cervical lymphadenopathy, thyromegaly or carotid bruits. No JVD. Cardiovascular: Bradycardic, regular rate and rhythm with occasionally irregularity. No murmurs, gallops, or rubs. Chest: No increased work of breathing. Poor inspiratory effort. Clear to auscultation bilaterally. No crackles or wheezes. Abdomen: Bowel sounds present. Soft, nondistended, winces with any touch to the abdomen, even light touch, pain appears generalized. Ostomy is pink with brown stool and some gas in the bag. Skin around the ostomy does not appear erythematous, indurated, or excoriated. No hepatosplenomegaly or masses. Extremities: No edema, no cyanosis or clubbing. Skin: No jaundice, no pallor, no rashes. Neuro: Unable to perform due to mental status. Const: Vital Signs, click to edit/add: Vital Signs - 24 hr 03/02/23 22:48 03/03/23 00:02 03/03/23 00:34 Temperature 98.1 F Pulse Rate 49 L Pulse Rate [Left A pical] Pulse Rate [Left P ulse Oximeter] Pulse Rate [Pulse Oximeter] 66 Respiratory Rate 18 Blood Pressure 111/46 L Blood Pressure [Le ft Arm] Blood Pressure [Le ft Upper Arm] 102/63 Pulse Oximetry 98 98 95 Oxygen Delivery Me thod Room Air Oxygen Flow Rate 03/03/23 00:35 03/03/23 00:45 03/03/23 00:47 Temperature Pulse Rate 57 L 53 L 57 L Pulse Rate [Left A pical] Pulse Rate [Left P ulse Oximeter] Pulse Rate [Pulse Oximeter] Respiratory Rate Blood Pressure 109/45 L Blood Pressure [Le ft Arm] Blood Pressure [Le ft Upper Arm] Pulse Oximetry 96 92 95 Oxygen Delivery Me thod Oxygen Flow Rate 03/03/23 01:02 03/03/23 01:02 03/03/23 01:03 Temperature Pulse Rate 48 L 48 L 51 L Pulse Rate [Left A pical] Pulse Rate [Left P ulse Oximeter] Pulse Rate [Pulse Oximeter] Respiratory Rate Blood Pressure 88/43 L 88/43 L Blood Pressure [Le ft Arm] Blood Pressure [Le ft Upper Arm] Pulse Oximetry 91 91 92 Oxygen Delivery Me thod Oxygen Flow Rate 03/03/23 01:05 03/03/23 01:15 03/03/23 01:17 Temperature Pulse Rate 55 L 53 L 52 L Pulse Rate [Left A pical] Pulse Rate [Left P ulse Oximeter] Pulse Rate [Pulse Oximeter] Respiratory Rate Blood Pressure 131/43 L 129/46 L Blood Pressure [Le ft Arm] Blood Pressure [Le ft Upper Arm] Pulse Oximetry 94 98 91 Oxygen Delivery Me thod Oxygen Flow Rate 03/03/23 01:19 03/03/23 01:30 03/03/23 01:32 Temperature Pulse Rate 52 L 52 L 53 L Pulse Rate [Left A pical] Pulse Rate [Left P ulse Oximeter] Pulse Rate [Pulse Oximeter] Respiratory Rate Blood Pressure 96/57 L Blood Pressure [Le ft Arm] Blood Pressure [Le ft Upper Arm] Pulse Oximetry 96 93 92 Oxygen Delivery Me thod Oxygen Flow Rate 03/03/23 01:33 03/03/23 01:45 03/03/23 01:47 Temperature Pulse Rate 51 L 57 L 61 Pulse Rate [Left A pical] Pulse Rate [Left P ulse Oximeter] Pulse Rate [Pulse Oximeter] Respiratory Rate Blood Pressure 134/96 H Blood Pressure [Le ft Arm] Blood Pressure [Le ft Upper Arm] Pulse Oximetry 100 94 96 Oxygen Delivery Me thod Oxygen Flow Rate 03/03/23 01:57 03/03/23 02:00 03/03/23 02:01 Temperature Pulse Rate 62 54 L 61 Pulse Rate [Left A pical] Pulse Rate [Left P ulse Oximeter] Pulse Rate [Pulse Oximeter] Respiratory Rate Blood Pressure 149/53 H 133/53 L 128/52 L Blood Pressure [Le ft Arm] Blood Pressure [Le ft Upper Arm] Pulse Oximetry 93 95 94 Oxygen Delivery Me thod Oxygen Flow Rate 03/03/23 02:02 03/03/23 02:03 03/03/23 02:15 Temperature Pulse Rate 54 L 52 L 51 L Pulse Rate [Left A pical] Pulse Rate [Left P ulse Oximeter] Pulse Rate [Pulse Oximeter] Respiratory Rate Blood Pressure 128/54 L Blood Pressure [Le ft Arm] Blood Pressure [Le ft Upper Arm] Pulse Oximetry 96 96 94 Oxygen Delivery Me thod Oxygen Flow Rate 03/03/23 02:17 03/03/23 02:18 03/03/23 02:30 Temperature Pulse Rate 52 L 49 L 47 L Pulse Rate [Left A pical] Pulse Rate [Left P ulse Oximeter] Pulse Rate [Pulse Oximeter] Respiratory Rate Blood Pressure 78/51 L 114/51 L Blood Pressure [Le ft Arm] Blood Pressure [Le ft Upper Arm] Pulse Oximetry 96 96 95 Oxygen Delivery Me thod Oxygen Flow Rate 03/03/23 02:32 03/03/23 02:45 03/03/23 02:47 Temperature Pulse Rate 46 L 48 L 48 L Pulse Rate [Left A pical] Pulse Rate [Left P ulse Oximeter] Pulse Rate [Pulse Oximeter] Respiratory Rate Blood Pressure 94/76 113/58 L Blood Pressure [Le ft Arm] Blood Pressure [Le ft Upper Arm] Pulse Oximetry 95 94 95 Oxygen Delivery Me thod Oxygen Flow Rate 03/03/23 03:00 03/03/23 03:02 03/03/23 03:15 Temperature Pulse Rate 51 L 48 L 48 L Pulse Rate [Left A pical] Pulse Rate [Left P ulse Oximeter] Pulse Rate [Pulse Oximeter] Respiratory Rate Blood Pressure 113/54 L Blood Pressure [Le ft Arm] Blood Pressure [Le ft Upper Arm] Pulse Oximetry 94 95 95 Oxygen Delivery Me thod Oxygen Flow Rate 03/03/23 03:17 03/03/23 03:30 03/03/23 03:32 Temperature Pulse Rate 44 L 45 L 47 L Pulse Rate [Left A pical] Pulse Rate [Left P ulse Oximeter] Pulse Rate [Pulse Oximeter] Respiratory Rate Blood Pressure 107/45 L 79/54 L Blood Pressure [Le ft Arm] Blood Pressure [Le ft Upper Arm] Pulse Oximetry 96 96 95 Oxygen Delivery Me thod Oxygen Flow Rate 03/03/23 03:33 03/03/23 03:45 03/03/23 03:47 Temperature Pulse Rate 48 L 45 L 51 L Pulse Rate [Left A pical] Pulse Rate [Left P ulse Oximeter] Pulse Rate [Pulse Oximeter] Respiratory Rate Blood Pressure 101/56 L 78/56 L Blood Pressure [Le ft Arm] Blood Pressure [Le ft Upper Arm] Pulse Oximetry 93 95 93 Oxygen Delivery Me thod Oxygen Flow Rate 03/03/23 03:49 03/03/23 04:00 03/03/23 04:02 Temperature Pulse Rate 51 L 50 L 54 L Pulse Rate [Left A pical] Pulse Rate [Left P ulse Oximeter] Pulse Rate [Pulse Oximeter] Respiratory Rate Blood Pressure 106/49 L 103/50 L Blood Pressure [Le ft Arm] Blood Pressure [Le ft Upper Arm] Pulse Oximetry 95 94 90 Oxygen Delivery Me thod Oxygen Flow Rate 03/03/23 04:45 03/03/23 04:46 03/03/23 04:47 Temperature Pulse Rate 55 L 52 L 52 L Pulse Rate [Left A pical] Pulse Rate [Left P ulse Oximeter] Pulse Rate [Pulse Oximeter] Respiratory Rate Blood Pressure 115/42 L 108/41 L Blood Pressure [Le ft Arm] Blood Pressure [Le ft Upper Arm] Pulse Oximetry 95 81 L 85 L Oxygen Delivery Me thod Oxygen Flow Rate 03/03/23 05:02 03/03/23 05:22 03/03/23 05:30 Temperature Pulse Rate Pulse Rate [Left A pical] Pulse Rate [Left P ulse Oximeter] Pulse Rate [Pulse Oximeter] Respiratory Rate Blood Pressure 127/83 Blood Pressure [Le ft Arm] Blood Pressure [Le ft Upper Arm] Pulse Oximetry 82 L 65 L Oxygen Delivery Me thod Oxygen Flow Rate 03/03/23 05:32 03/03/23 05:45 03/03/23 05:47 Temperature Pulse Rate Pulse Rate [Left A pical] Pulse Rate [Left P ulse Oximeter] Pulse Rate [Pulse Oximeter] Respiratory Rate Blood Pressure 128/77 114/45 L Blood Pressure [Le ft Arm] Blood Pressure [Le ft Upper Arm] Pulse Oximetry 63 L 73 L 67 L Oxygen Delivery Me thod Oxygen Flow Rate 03/03/23 06:00 03/03/23 06:02 03/03/23 06:15 Temperature Pulse Rate 55 L Pulse Rate [Left A pical] Pulse Rate [Left P ulse Oximeter] Pulse Rate [Pulse Oximeter] Respiratory Rate Blood Pressure 133/54 L Blood Pressure [Le ft Arm] Blood Pressure [Le ft Upper Arm] Pulse Oximetry 66 L 58 L 93 Oxygen Delivery Me thod Oxygen Flow Rate 03/03/23 06:17 03/03/23 06:30 03/03/23 06:33 Temperature Pulse Rate 55 L 47 L 55 L Pulse Rate [Left A pical] Pulse Rate [Left P ulse Oximeter] Pulse Rate [Pulse Oximeter] Respiratory Rate Blood Pressure 107/59 L 95/42 L Blood Pressure [Le ft Arm] Blood Pressure [Le ft Upper Arm] Pulse Oximetry 92 93 96 Oxygen Delivery Me thod Oxygen Flow Rate 03/03/23 06:45 03/03/23 06:47 03/03/23 07:00 Temperature Pulse Rate 54 L 50 L Pulse Rate [Left A pical] Pulse Rate [Left P ulse Oximeter] Pulse Rate [Pulse Oximeter] Respiratory Rate Blood Pressure 96/47 L Blood Pressure [Le ft Arm] Blood Pressure [Le ft Upper Arm] Pulse Oximetry 95 95 77 L Oxygen Delivery Me thod Oxygen Flow Rate 03/03/23 07:02 03/03/23 07:45 03/03/23 07:48 Temperature 97.5 F L Pulse Rate 54 L Pulse Rate [Left A pical] 49 L Pulse Rate [Left P ulse Oximeter] Pulse Rate [Pulse Oximeter] Respiratory Rate 16 Blood Pressure 111/83 Blood Pressure [Le ft Arm] 124/78 Blood Pressure [Le ft Upper Arm] Pulse Oximetry 63 L 99 Oxygen Delivery Me thod OxyMask Oxygen Flow Rate 3 03/03/23 09:38 03/03/23 07:48 03/03/23 08:10 Temperature 97.5 F L Pulse Rate Pulse Rate [Left A pical] 49 L Pulse Rate [Left P ulse Oximeter] 49 L Pulse Rate [Pulse Oximeter] Respiratory Rate 16 16 Blood Pressure Blood Pressure [Le ft Arm] 129/48 L Blood Pressure [Le ft Upper Arm] Pulse Oximetry 98 99 99 Oxygen Delivery Me thod Nasal Cannula OxyM ask OxyMask Oxygen Flow Rate 3 03/03/23 11:00 03/03/23 12:38 03/03/23 12:53 Temperature 98.4 F 97.1 F L Pulse Rate 73 Pulse Rate [Left A pical] 56 L 73 Pulse Rate [Left P ulse Oximeter] 56 L 73 Pulse Rate [Pulse Oximeter] Respiratory Rate 16 16 Blood Pressure Blood Pressure [Le ft Arm] 125/56 L 111/37 L Blood Pressure [Le ft Upper Arm] Pulse Oximetry 95 96 Oxygen Delivery Me thod Room Air Room Air Oxygen Flow Rate 03/03/23 13:15 03/03/23 14:00 Temperature 97.8 F Pulse Rate Pulse Rate [Left A pical] 70 74 Pulse Rate [Left P ulse Oximeter] 70 74 Pulse Rate [Pulse Oximeter] Respiratory Rate 16 16 Blood Pressure Blood Pressure [Le ft Arm] 132/62 100/50 L Blood Pressure [Le ft Upper Arm] Pulse Oximetry 96 98 Oxygen Delivery Me thod Room Air Room Air Oxygen Flow Rate Documenting provider has reviewed patient's vital signs: yes Same Day Admit/Disch: Data Data Completed and Pending Completed studies during hospitalization: Ordering Physician: Edmund Corbin M.D. Date of Service: 03/03/23 Procedure(s): CT abdomen pelvis wo con Accession Number(s): [id number] cc: Onur Schreiber M.D.; Edmund Corbin M.D.~ For Patients: As a result of the Cures Act, medical imaging exams and procedure reports are released immediately into your electronic medical record. You may view this report before your referring provider. If you have questions, please contact your health care provider. INDICATION: elevated wbc... abd pain unable to get verbal history TECHNIQUE: CT abdomen and pelvis without contrast. COMPARISON: CT abdomen pelvis May 27, 2022. FINDINGS: The liver is normal in size, shape and attenuation. Status post cholecystectomy with similar compensatory dilatation of the CBD. The spleen, adrenal glands and pancreas are within normal limits. The kidneys are unremarkable. Severe distention of the urinary bladder without wall thickening. There is likely associated mild right hydronephrosis. No evidence of bowel obstruction. Right ventral ostomy again noted. No significant free fluid and no free air. Abdominal aorta normal caliber with moderate atherosclerosis of the aortoiliac vessels. Pelvic organs are unremarkable. Bibasilar airspace opacities concerning for pneumonia and/or aspiration No evidence of acute fracture. Remote osteopenia. Remote inferior pubic ramus fracture. Multilevel chronic compression deformities. Redemonstrated chronic sacral insufficiency fractures. IMPRESSION: 1. Severe distention of the urinary bladder without wall thickening. There is likely associated mild right hydronephrosis. Consider Monroe catheter decompression. 2. Bibasilar airspace opacities concerning for pneumonia and/or aspiration 3. Redemonstration of multiple chronic compression deformities and pelvic fractures. Please note that all CT scans at this facility use dose modulation, iterative reconstruction, and/or weight-based dosing when appropriate to reduce radiation dose to as low as reasonably achievable. Dictated by Minh Barnes MD @ 03/03/2023 5:11:58 AM (Electronically Signed) Ordering Physician: Edmund Corbin M.D. Date of Service: 03/03/23 Procedure(s): XR chest 1V Accession Number(s): [id number] cc: Onur Schreiber M.D.; Edmund Corbin M.D.~ For Patients: As a result of the Century Cures Act, medical imaging exams and procedure reports are released immediately into your electronic medical record. You may view this report before your referring provider. If you have questions, please contact your health care provider. INDICATION: elevated WBC TECHNIQUE: Chest 1 views. COMPARISON: Chest x-ray August 01, 2022 FINDINGS: Cardiovascular and mediastinum: Stable heart size. Lungs and pleural spaces: Low lung volumes. Bibasilar airspace opacities which may represent atelectasis or developing pneumonia. No effusion or pneumothorax. Bones and soft tissues: No significant findings. IMPRESSION: Low lung volumes with bibasilar airspace opacities which may represent atelectasis or developing pneumonia. Dictated by Minh Barnes MD @ 03/03/2023 5:03:33 AM (Electronically Signed) 03/02/2023 11:58 p.m. EKG: Atrial fibrillation with slow ventricular response heart rate 52 beats per minute, low voltage QRS. 03/03/2023 1:30 a.m. EKG: Sinus bradycardia with marked sinus rhythm, 53 beats per minute. Otherwise normal EKG. 03/03/2023 7:03 a.m. EKG: Sinus bradycardia with premature atrial complexes. Heart rate 48 beats per minute. Otherwise normal EKG. 03/03/2023 12:08 p.m. EKG: Normal sinus rhythm. Normal EKG. Labs on day of discharge: Labs from last 24 hours 03/03/23 03/03/23 03/03/23 14:17 11:18 05:00 WBC RBC Hgb Hct MCV MCH MCHC RDW Coeff of Sharmaine Plt Count Neut % (Auto) Lymph % (Auto) Clay % (Auto) Eos % (Auto) Baso % (Auto) Neut # (Auto) Lymph # (Auto) Clay # (Auto) Eos # (Auto) Baso # (Auto) VBG pH 7.279 L VBG pCO2 43 VBG pO2 34.7 VBG HCO3 20 L Sodium 118 L* 118 L* Potassium 5.9 H 7.0 H* 6.5 H* Chloride 94 L 90 L Carbon Dioxide 18 L 21 BUN 48 H 52 H Creatinine 1.6 H 1.8 H Estimated Creat Clear 18.04 Estimated GFR 31 27 Glucose 299 H 243 H Lactate Calcium 8.8 9.5 Magnesium Total Bilirubin Direct Bilirubin AST ALT Alkaline Phosphatase C-Reactive Protein NT-Pro-B Natriuret Pep Total Protein Albumin Procalcitonin Urine Color Urine Appearance Urine pH Ur Specific Glenvil Urine Protein Urine Glucose (UA) Urine Ketones Urine Blood Urine Nitrite Urine Bilirubin Urine Urobilinogen Ur Leukocyte Esterase Urine RBC Urine WBC Ur Squamous Epith Cells Urine Bacteria SARS-CoV-2 (PCR) 03/03/23 03/03/23 03/02/23 04:55 02:00 23:55 WBC 15.49 H RBC 5.19 Hgb 15.3 Hct 43.3 MCV 83 MCH 30 MCHC 35 RDW Coeff of Sharmaine 12.8 Plt Count 285 Neut % (Auto) 79.2 H Lymph % (Auto) 12.5 L Clay % (Auto) 7.2 Eos % (Auto) 0.7 Baso % (Auto) 0.3 Neut # (Auto) 12.30 H Lymph # (Auto) 1.90 Clay # (Auto) 1.10 H Eos # (Auto) 0.10 Baso # (Auto) 0.00 VBG pH VBG pCO2 VBG pO2 VBG HCO3 Sodium 117 L* 115 L* Potassium 6.8 H* 7.5 H* Chloride 88 L 84 L Carbon Dioxide 23 24 BUN 55 H 57 H Creatinine 1.9 H 2.1 H Estimated Creat Clear Estimated GFR 26 23 Glucose 317 H 282 H Lactate 1.8 Calcium 9.4 9.8 Magnesium 2.4 Total Bilirubin 1.4 Direct Bilirubin 0.3 AST 32 ALT 28 Alkaline Phosphatase 203 H C-Reactive Protein 2.1 H NT-Pro-B Natriuret Pep 6520 Total Protein 7.3 Albumin 4.5 Procalcitonin 0.51 H Urine Color Yellow Urine Appearance Clear Urine pH 5.0 Ur Specific Glenvil 1.015 Urine Protein Negative Urine Glucose (UA) 1+ A Urine Ketones Negative Urine Blood Negative Urine Nitrite Negative Urine Bilirubin Negative Urine Urobilinogen 0.2 Ur Leukocyte Esterase Negative Urine RBC 0-2 Urine WBC 0-2 Ur Squamous Epith Cells Few Urine Bacteria None SARS-CoV-2 (PCR) Negative SARS-CoV-2 Same Day Admit/Disch: Sum Hospital Course Hospital Course: Shira was treated in the emergency department for hypercalcemia. She was given calcium gluconate, insulin and dextrose. Her potassium which was originally if 7.5, came down to 7, and then 6.5. She arrived to the critical care unit shortly after that. For the elevated white count and elevated procalcitonin, with possible pneumonia, I started her on Zosyn and obtained blood cultures. Her glucose had come down to the mid 200s and I was treating that with long- acting and short-acting insulins. Her next blood draw showed a potassium of 7. Her sodium was coming up, 118 from 115. Her creatinine had come down to 1.6 from 2.1. I started NS and furosemide for potassium diuresis along with giving more insulin with albuterol, dextrose and calcium gluconate. Since she does not have a working colon, I did not think a potassium binder would work for her. I spoke with [facility] client service administrator, Dr. Mariann Heaton. He did not have a dialysis bed there. She recommended giving Lasix and following urine output. I spoke with Dr. Thacker from [place] who accepted the patient in transfer. He recommended giving magnesium, starting an insulin drip along with giving 1 amp of bicarb and another if she was acidotic on a VBG. I ordered these things. Her VBG showed that she was acidotic with a pH of 7.28 for which I gave her another amp of bicarb just prior to transfer via ambulance. Her potassium had come down to 5.9 just prior to transfer. I did have several conversations with her daughter Gianna today. The most recent right before transfer during which I notified the daughter that fatal arrhythmias can occur during transfer however there is also a risk that she could have a fatal arrhythmia due to persistently elevated potassium here since we do not have the capability of dialysis. Daughter was agreeable with transfer to [place]. Time Spent with Patient Time attestation: Total time spent providing and/or coordinating discharge services: Provider Date of admission: 03/03/23 08:09 Primary care physician: Onur Schreiber MD Consults: 03/03/23 06:06 Consult to Physical Therapy [CONS] Routine Comment: Reason(s) for PT Consult:: Evaluate Ambulation Any Restrictions?:: No Restrictions Consult to Tub[employer] Former [CONS] Routine Comment: Reason for Consult:: Discharge Planning Needs 03/03/23 06:10 Consult to Occupational Therapy [CONS] Routine Comment: Reason(s) for OT Consult:: Evaluate and Treat Any Restrictions?:: No Restrictions 03/03/23 11:00 Consult to Occupational Therapy [CONS] Routine Comment: Reason(s) for OT Consult:: Difficulty Managing ADLs Any Restrictions?:: See Comment Consult to Physical Therapy [CONS] Routine Comment: Reason(s) for PT Consult:: Evaluate and Treat Any Restrictions?:: See Comment 03/03/23 11:35 Consult to Nutrition [CONS] Routine Comment: Reason for consult:: Weight Loss 03/03/23 15:36 Consult to Speech Therapy [CONS] Routine Comment: Reason(s) for Speech Consult:: Swallowing Difficulty Comment: ? aspiration DS: Diagnosis Discharge Diagnosis (1) Diabetes mellitus type 1: Status: Acute (2) Coronary artery disease: Status: Acute (3) [place]'s disease: Status: Acute (4) LUPE (acute kidney injury): Status: Acute (5) Dehydration: Status: Acute (6) Pneumonia: Status: Acute (7) Acute hyperkalemia: Status: Acute (8) Acute hyponatremia: Status: Acute (9) High output ileostomy: Status: Acute Problem details: Imodium seem to be effective for this. (10) Ileostomy in place: Status: Acute Problem details: Ileostomy has been present for about a month. High output likely was causing some of her electrolyte issues and metabolic acidosis. (11) Chronic pain: Status: Acute (12) Type 1 diabetes mellitus: Status: Acute (13) Urinary retention: Status: Acute (14) Low body weight due to inadequate caloric intake: Status: Acute Same Day Admit/Disch: Med Pre-admit Medications Home Medications Medication Instructions Recorded Confirmed Type cholecalciferol (vitamin D3) 50 4,000 unit PO HS 05/02/22 03/03/23 History mcg (2,000 unit) tablet coenzyme Q10 100 mg capsule 100 mg PO HS 05/02/22 03/03/23 History estradiol 0.01% (0.1 mg/gram) 1 appful vaginal MOTH 05/02/22 03/03/23 History vaginal cream famotidine 20 mg tablet 20 mg PO BID 05/02/22 03/03/23 History hydrocortisone 5 mg tablet 7.5 - 15 mg PO BID 05/02/22 03/03/23 History insulin glargine 100 unit/mL (3 13 unit subcut HS 05/02/22 03/03/23 History mL) subcutaneous pen (Lantus Solostar U-100 Insulin) insulin lispro 100 unit/mL 4 - 5 unit subcut TIDWM 05/02/22 03/03/23 History subcutaneous pen (Humalog KwikPen (U-100) Insulin) lactobacillus combination no.4 3 3,000 mmu cells PO DAILY 05/02/22 03/03/23 History billion cell capsule (Probiotic) levothyroxine 75 mcg tablet 75 mcg PO DAILY 05/02/22 03/03/23 History morphine 15 mg tablet,extended 15 mg PO TID 05/02/22 03/03/23 History release multivit-iron 18 mg-folic acid 400 1 tab PO DAILY 05/02/22 03/03/23 History mcg-calcium 500 mg-minerals tablet (Women's One Daily) olopatadine 0.2 % eye drops 1 drp ophthalmic (eye) DAILY 05/02/22 03/03/23 History oxycodone 5 mg tablet 5 mg PO Q6H PRN 05/02/22 03/03/23 History vitamin B complex (Vitamins B 1 cap PO HS 05/02/22 03/03/23 History Complex capsule) acetaminophen 500 mg capsule 1,000 mg PO QID PRN 05/28/22 03/03/23 History metoprolol tartrate 25 mg tablet 25 mg PO BID 05/28/22 03/03/23 History ondansetron HCl 4 mg tablet 4 mg PO Q6H PRN 05/28/22 03/03/23 History simethicone 80 mg chewable tablet 80 mg PO BID 05/28/22 03/03/23 History aspirin 81 mg chewable tablet 81 mg PO DAILY@1200 03/03/23 03/03/23 History fludrocortisone 0.1 mg tablet 0.1 mg PO DAILY 03/03/23 03/03/23 History furosemide 20 mg tablet 10 mg PO DAILY 03/03/23 03/03/23 History glucose 4 gram chewable tablet 4 g PO Q15M PRN 03/03/23 03/03/23 History (Dex4 Glucose) methylcellulose (laxative) 1 tbsp PO DAILY 03/03/23 03/03/23 History saliva stimulant comb. no.3 1 applic mucous membrane Q1H PRN 03/03/23 03/03/23 History (Biotene Moisturizing Mouth mucosal spray) sertraline 50 mg tablet 50 mg PO DAILY 03/03/23 03/03/23 History sodium bicarbonate 650 mg tablet 650 mg PO TIDWM 03/03/23 03/03/23 History
== END 2023-03-03 15:32 | disposition short-term general hospital (02) | DRG 420 ==
LOC: ED 03-03 06:09 → MEDSURG 03-03 07:35
PROVIDERS: Internal Medicine; Admitting Provider Family Medicine; Emergency Provider Family Medicine; PCP Family Medicine; Visit Provider Family Medicine
DX: E10.65 Type 1 diabetes mellitus with hyperglycemia (principal); E87.5 Hyperkalemia; N17.9 Acute kidney failure, unspecified; J18.9 Pneumonia, unspecified organism; E86.0 Dehydration; E87.1 Hypo-osmolality and hyponatremia; R63.4 Abnormal weight loss; Z68.1 Body mass index [BMI] 19.9 or less, adult; Z79.4 Long term (current) use of insulin; Z93.2 Ileostomy status; E27.1 Primary adrenocortical insufficiency; F41.9 Anxiety disorder, unspecified; F03.90 Unspecified dementia, unspecified severity, without behavioral disturbance, psychotic disturbance, mood disturbance, and anxiety; E10.43 Type 1 diabetes mellitus with diabetic autonomic (poly)neuropathy; E10.22 Type 1 diabetes mellitus with diabetic chronic kidney disease; I12.9 Hypertensive chronic kidney disease with stage 1 through stage 4 chronic kidney disease, or unspecified chronic kidney disease; N18.31 Chronic kidney disease, stage 3a; K31.84 Gastroparesis; G89.29 Other chronic pain; R26.81 Unsteadiness on feet; Z98.62 Peripheral vascular angioplasty status; N32.89 Other specified disorders of bladder; N13.30 Unspecified hydronephrosis; I48.91 Unspecified atrial fibrillation; I25.10 Atherosclerotic heart disease of native coronary artery without angina pectoris; J45.909 Unspecified asthma, uncomplicated; E78.5 Hyperlipidemia, unspecified; K21.9 Gastro-esophageal reflux disease without esophagitis
CPT/HCPCS: 36415; 71045; 74176; 80048; 80076; 81001; 82803; 82962; 83605; 83735; 83880; 84132; 84145; 85025; 86140; 87040; 87635; 93005; 94640; 94761; 99199; 99284; 99285; 99291; A9270; J0610; J0696; J1644; J1720; J1940; J2543; J3475; J3590; J7030

== ENCOUNTER 2023-03-03 15:08 | Outpatient (CLI) | payer BC, SELFPAY | END 2023-03-03 15:09 | disposition home or self-care (01) | LOC: AMB 03-05 06:38 | PROVIDERS: PCP Family Medicine; Visit Provider Emergency Medicine | DX: E87.5 Hyperkalemia (principal); E11.65 Type 2 diabetes mellitus with hyperglycemia; J18.9 Pneumonia, unspecified organism | CPT/HCPCS: A0425; A0426; A0427 ==

== ENCOUNTER 2023-03-27 09:55 | Outpatient (CLI) | payer BC, SELFPAY | END 2023-03-27 09:56 | disposition home or self-care (01) | LOC: AMB 04-01 16:01 | PROVIDERS: PCP Family Medicine; Visit Provider Internal Medicine | DX: R41.82 Altered mental status, unspecified (principal) | CPT/HCPCS: A0425; A0429 ==

== ENCOUNTER 2023-04-17 08:55 | Outpatient (CLI) | payer BC, SELFPAY | END 2023-04-17 08:56 | disposition home or self-care (01) | LOC: AMB 04-22 09:31 | PROVIDERS: PCP Family Medicine; Visit Provider Family Medicine | DX: R53.1 Weakness (principal) | CPT/HCPCS: A0425; A0429 ==

== ENCOUNTER 2023-04-17 09:16 | Inpatient (IN) | payer BC, SELFPAY ==
[2023-04-17] VITALS (20 sets, daily range): BP systolic 74–112; BP diastolic 41–56; PULSE 66–90; RESP 12–20; TEMP 36.2–36.8; O2SAT 89–98; BMI 15.4
--- NOTE | 2023-04-17 09:42 | ED_ITS ---
HPI - Weakness General Date Seen: 04/17/23 Chief complaint: Weakness Stated complaint: weakness Time Seen by Provider: 04/17/23 09:31 Source: patient and EMS Mode of arrival: EMS Limitations: no limitations History of Present Illness HPI Narrative: Patient is 87-year-old female well known to this institution who presents from weakness from the senior living/[place]. 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 EMS is brought her in by what rather sketchy history from both the patient, was able to only say yes or no to me, does not give me other and full information, no history of nausea vomiting, no history of fevers chills or sweats, but she has had increased weakness, she has known history of hyponatremia, addisonian crisis, UTIs, she has a high output ostomy. Tells me she is in pain but known to have chronic pain, she does have a pulse, limited treatment plan, but IV fluids are fine. She does have a DNR order Complaint: generalized weakness Onset (ago): day(s) Duration: progressively worsening Location: generalized Migration: none Severity: moderate Exacerbating factors: none Related Data Home Medications Medication Instructions Recorded Confirmed cholecalciferol (vitamin D3) 50 4,000 unit PO HS 05/02/22 03/27/23 mcg (2,000 unit) tablet coenzyme Q10 100 mg capsule 100 mg PO HS 05/02/22 03/27/23 estradiol 0.01% (0.1 mg/gram) 1 appful vaginal MOTH 05/02/22 03/27/23 vaginal cream hydrocortisone 5 mg tablet 7.5 - 15 mg PO BID 05/02/22 03/27/23 insulin glargine 100 unit/mL (3 12 unit subcut HS 05/02/22 03/27/23 mL) subcutaneous pen (Lantus Solostar U-100 Insulin) insulin lispro 100 unit/mL 5 unit subcut TIDWM 05/02/22 03/27/23 subcutaneous pen (Humalog KwikPen (U-100) Insulin) lactobacillus combination no.4 3 3,000 mmu cells PO DAILY 05/02/22 03/27/23 billion cell capsule (Probiotic) levothyroxine 75 mcg tablet 75 mcg PO DAILY 05/02/22 03/27/23 morphine 15 mg tablet,extended 15 mg PO TID 05/02/22 03/27/23 release multivit-iron 18 mg-folic acid 400 1 tab PO DAILY 05/02/22 03/27/23 mcg-calcium 500 mg-minerals tablet (Women's One Daily) olopatadine 0.2 % eye drops 1 drp ophthalmic (eye) DAILY 05/02/22 03/27/23 oxycodone 5 mg tablet 5 mg PO Q6H PRN 05/02/22 03/27/23 vitamin B complex (Vitamins B 1 cap PO DAILY 05/02/22 03/27/23 Complex capsule) acetaminophen 500 mg capsule 1,000 mg PO QID PRN 05/28/22 03/27/23 metoprolol tartrate 25 mg tablet 12.5 mg PO BID 05/28/22 03/27/23 ondansetron HCl 4 mg tablet 4 mg PO Q6H PRN 05/28/22 03/27/23 simethicone 80 mg chewable tablet 80 mg PO BID 05/28/22 03/27/23 aspirin 81 mg chewable tablet 81 mg PO DAILY@1200 03/03/23 03/27/23 fludrocortisone 0.1 mg tablet 0.1 mg PO DAILY 03/03/23 03/27/23 furosemide 20 mg tablet 10 mg PO DAILY 03/03/23 03/27/23 glucose 4 gram chewable tablet 4 g PO Q15M PRN 03/03/23 03/27/23 (Dex4 Glucose) saliva stimulant comb. no.3 1 applic mucous membrane Q1H PRN 03/03/23 03/27/23 (Biotene Moisturizing Mouth mucosal spray) sertraline 50 mg tablet 50 mg PO DAILY 03/03/23 03/27/23 sodium bicarbonate 650 mg tablet 650 mg PO TIDWM 03/03/23 03/27/23 loperamide 2 mg capsule 4 mg PO QID 03/27/23 03/27/23 methylcellulose (with sugar) oral 1 tbsp PO DAILY 03/27/23 03/27/23 powder (Citrucel (sucrose) oral powder) psyllium 1 tbsp PO TID 03/27/23 03/27/23 Previous Rx's Medication Instructions Recorded sodium chloride 1,000 mg soluble 1,000 mg PO TIDWM 30 days #90 tabs 04/02/23 tablet Allergies Allergy/AdvReac Type Severity Reaction Status Date / Time adhesive tape Allergy Mild Rash Verified 01/15/23 10:18 diclofenac Allergy Unknown Verified 01/15/23 10:18 aspartame Allergy Verified 01/15/23 10:18 beclomethasone Allergy Verified 01/15/23 10:18 bisacodyl Allergy Verified 01/15/23 10:18 dexamethasone Allergy Verified 01/15/23 10:18 doxycycline Allergy Verified 01/15/23 10:18 erythromycin base Allergy Verified 01/15/23 10:18 gabapentin Allergy Verified 01/15/23 10:18 hydrochlorothiazide Allergy Verified 01/15/23 10:18 lactase [From Dairy Aid] Allergy Verified 01/15/23 10:18 meclizine Allergy Verified 01/15/23 10:18 metformin Allergy Verified 01/15/23 10:18 metoclopramide Allergy Verified 01/15/23 10:18 nabumetone [From Relafen] Allergy Verified 01/15/23 10:18 propranolol Allergy Verified 01/15/23 10:18 raloxifene Allergy Verified 01/15/23 10:18 ramipril Allergy Verified 01/15/23 10:18 tobramycin Allergy Verified 01/15/23 10:18 venlafaxine Allergy Verified 01/15/23 10:18 Review of Systems Status of ROS: Reports: unobtainable due to medical condition and unobtainable due to mental status PFSH PFS Medical History Left knee pain ?M25.562 - Pain in left knee (ICD-10) Ileostomy in place ?Z93.2 - Ileostomy status (ICD-10) Back pain ?M54.9 - Dorsalgia, unspecified (ICD-10) Unsteady gait ?R26.81 - Unsteadiness on feet (ICD-10) Polypharmacy ?Z79.899 - Other ocean transportation intermediary (current) drug therapy (ICD-10) Pain of cervical spine ?M54.2 - Cervicalgia (ICD-10) Pain in jaw not originating in temporomandibular joint ?R68.84 - Jaw pain (ICD-10) Osteoporosis ?M81.0 - Age-related osteoporosis without current pathological fracture (ICD- 10) Low back pain ?M54.50 - Low back pain, unspecified (ICD-10) Ketoacidosis due to diabetes mellitus (08/03/13) ?E11.10 - Type 2 diabetes mellitus with ketoacidosis without coma (ICD-10) Irritable bowel syndrome ?K58.9 - Irritable bowel syndrome without diarrhea (ICD-10) Impacted cerumen ?H61.20 - Impacted cerumen, unspecified ear (ICD-10) Hematoma of occipital region of scalp ?S00.03XA - Contusion of scalp, initial encounter (ICD-10) Falls (03/31/12) ?W19.XXXA - Unspecified fall, initial encounter (ICD-10) Epistaxis ?R04.0 - Epistaxis (ICD-10) Diverticulitis of large intestine ?K57.32 - Diverticulitis of large intestine without perforation or abscess without bleeding (ICD-10) Diabetic gastroparesis (08/03/13) ?E11.43 - Type 2 diabetes mellitus with diabetic autonomic (poly)neuropathy (ICD-10) ?K31.84 - Gastroparesis (ICD-10) Coronary artery disease ?I25.10 - Atherosclerotic heart disease of [place] coronary artery without angina pectoris (ICD-10) Contusion of chest (03/31/12) ?S20.219A - Contusion of unspecified front wall of thorax, initial encounter (ICD-10) Concussion (03/29/12) ?S06.0XAA - Concussion with loss of consciousness status unknown, initial encounter (ICD-10) Compression fracture of vertebral column (07/26/13) ?M48.50XA - Collapsed vertebra, not elsewhere classified, site unspecified, initial encounter for fracture (ICD-10) Compression fracture of L2 vertebra with delayed healing ?S32.020G - Wedge compression fracture of second lumbar vertebra, subsequent encounter for fracture with delayed healing (ICD-10) Closed head injury ?S09.90XA - Unspecified injury of head, initial encounter (ICD-10) Closed fracture of superior ramus of right pubis ?S32.511A - Fracture of superior rim of right pubis, initial encounter for closed fracture (ICD-10) Closed fracture of left side of symphysis pubis ?S32.592A - Other specified fracture of left pubis, initial encounter for closed fracture (ICD-10) Closed fracture of left inferior pubic ramus ?S32.592A - Other specified fracture of left pubis, initial encounter for closed fracture (ICD-10) Chronic constipation (07/02/13) ?K59.09 - Other constipation (ICD-10) Bacterial pneumonia (07/02/13) ?J15.9 - Unspecified bacterial pneumonia (ICD-10) Anxiety disorder ?F41.9 - Anxiety disorder, unspecified (ICD-10) Sumner's disease ?E27.1 - Primary adrenocortical insufficiency (ICD-10) Seizure ?R56.9 - Unspecified convulsions (ICD-10) Hypothyroidism ?E03.9 - Hypothyroidism, unspecified (ICD-10) Hyponatremia (12/22/11) ?E87.1 - Hypo-osmolality and hyponatremia (ICD-10) Hyperkalemia (12/22/11) ?E87.5 - Hyperkalemia (ICD-10) Gastroesophageal reflux disease ?K21.9 - Gastro-esophageal reflux disease without esophagitis (ICD-10) Chronic pain ?G89.29 - Other chronic pain (ICD-10) Asthma ?J45.909 - Unspecified asthma, uncomplicated (ICD-10) Acute adrenal crisis ?E27.2 - Addisonian crisis (ICD-10) POLST (Physician Orders for Life-Sustaining Treatment) ?Z78.9 - Other specified health status (ICD-10) Health care directive on file ?Z78.9 - Other specified health status (ICD-10) High output ileostomy ?R19.8 - Other specified symptoms and signs involving the digestive system and abdomen (ICD-10) ?Z93.2 - Ileostomy status (ICD-10) Hyperkalemia ?E87.5 - Hyperkalemia (ICD-10) Abnormal liver enzymes ?R74.8 - Abnormal levels of other serum enzymes (ICD-10) Dementia ?F03.90 - Unspecified dementia without behavioral disturbance (ICD-10) Cataract ?H26.9 - Unspecified cataract (ICD-10) Dorsalgia ?M54.9 - Dorsalgia, unspecified (ICD-10) Hyperlipidemia ?E78.5 - Hyperlipidemia, unspecified (ICD-10) Unspecified dementia without behavioral disturbance ?F03.90 - Unspecified dementia without behavioral disturbance (ICD-10) Postmenopausal atrophic vaginitis ?N95.2 - Postmenopausal atrophic vaginitis (ICD-10) Convulsions ?R56.9 - Unspecified convulsions (ICD-10) Pressure ulcer of sacral region, unstageable ?L89.150 - Pressure ulcer of sacral region, unstageable (ICD-10) Constipation ?K59.00 - Constipation, unspecified (ICD-10) Primary hypertension ?I10 - Essential (primary) hypertension (ICD-10) Vertebral fracture Osteoarthritis ?M19.90 - Unspecified osteoarthritis, unspecified site (ICD-10) Chronic kidney disease (CKD) stage G3a/A1, moderately decreased glomerular filtration rate (GFR) between 45-59 mL/min/1.73 square meter and albuminuria creatinine ratio less than 30 mg/g ?N18.31 - Chronic kidney disease, stage 3a (ICD-10) 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 - Atherosclerotic heart disease of [place] coronary artery without angina pectoris (ICD-10) GERD (gastroesophageal reflux disease) ?K21.9 - Gastro-esophageal reflux disease without esophagitis (ICD-10) Anxiety ?F41.9 - Anxiety disorder, unspecified (ICD-10) Pelvic fracture ?S32.9XXA - Fracture of unspecified parts of lumbosacral spine and pelvis, initial encounter for closed fracture (ICD-10) Primary adrenocortical insufficiency ?E27.1 - Primary adrenocortical insufficiency (ICD-10) Diabetes mellitus type 1 ?E10.9 - Type 1 diabetes mellitus without complications (ICD-10) Surgical History S/P small bowel resection ?Z90.49 - Acquired absence of other specified parts of digestive tract (ICD- 10) H/O angioplasty ?Z98.62 - Peripheral vascular angioplasty status (ICD-10) H/O mastoidectomy ?Z90.89 - Acquired absence of other organs (ICD-10) S/P laparoscopic cholecystectomy ?Z90.49 - Acquired absence of other specified parts of digestive tract (ICD- 10) S/P appendectomy ?Z90.49 - Acquired absence of other specified parts of digestive tract (ICD- 10) No significant past surgical history Social History Narrative: Patient lives in a senior living. Highest level of school completed/degree received: don't know Smoking Status: Never smoker Do you use any of these nicotine containing products: None Second hand tobacco smoke exposure: No How often do you have a drink containing alcohol: never How often do you have six or more drinks on one occasion: Never AUDIT-C Alcohol total score: 0 Non-prescribed substance use: denies use Caffeine: No service: No Exam Narrative: Exam Narrative: Patient is seen in room 8 in no apparent distress, kind of her normal presen tation, but is sort of weak, her blood pressure is low at 74 /45 but she has not set tachycardic, she is on her left side, nursing is present, her pupils are equal round reactive to light there is no scleral icterus redness or TMs bilaterally are normal oropharynx is normal, she does appear to be a bit dry, chest has air entry bilaterally I would say good, but she does not really cooperate with my examination. There is no wheezing crackles noted no evidence of trauma over chest region. Her thoracic spine palpates normal. Her lumbar spine palpates normal to her abdomen is soft high output ostomy is noted with a bluish/green color to the contents, which they tell me is for odor control. Her extremities seem to be all cachectic, and she seems to have contractures on her lower extremities, she has the early sacral ulcer noted. With really minimal denudation of the skin around it. The whole area is approximately 8 x 6 cm. Const: Vital Signs, click to edit/add: Vital Signs - 24 hr 04/17/23 09:30 04/17/23 09:54 04/17/23 10:06 Temperature 98.3 F Pulse Rate 90 Pulse Rate [Right Pulse Oximeter] 90 89 Respiratory Rate 16 20 Blood Pressure Blood Pressure [Ri ght Upper Arm] 74/45 L 84/50 L Pulse Oximetry 93 91 94 Oxygen Delivery Me thod Room Air Room Air 04/17/23 10:16 04/17/23 10:17 04/17/23 10:30 Temperature Pulse Rate 88 86 Pulse Rate [Right Pulse Oximeter] Respiratory Rate Blood Pressure 100/49 L Blood Pressure [Ri ght Upper Arm] Pulse Oximetry 89 90 Oxygen Delivery Me thod 04/17/23 10:31 04/17/23 10:45 04/17/23 10:46 Temperature Pulse Rate 83 79 78 Pulse Rate [Right Pulse Oximeter] Respiratory Rate Blood Pressure 95/47 L 97/47 L Blood Pressure [Ri ght Upper Arm] Pulse Oximetry 92 89 93 Oxygen Delivery Me thod 04/17/23 11:00 04/17/23 11:01 04/17/23 11:15 Temperature Pulse Rate 77 76 77 Pulse Rate [Right Pulse Oximeter] Respiratory Rate Blood Pressure 94/43 L Blood Pressure [Ri ght Upper Arm] Pulse Oximetry 92 91 97 Oxygen Delivery Me thod 04/17/23 11:16 04/17/23 11:30 04/17/23 11:31 Temperature Pulse Rate 77 80 78 Pulse Rate [Right Pulse Oximeter] Respiratory Rate Blood Pressure 81/41 L 93/46 L Blood Pressure [Ri ght Upper Arm] Pulse Oximetry 97 94 94 Oxygen Delivery Me thod Documenting provider has reviewed patient's vital signs: yes Course Course Hospital Course: This very complex and challenging patient due to past history, and inability to really give any meaningful history, she did have a mild hyponatremia, which might be more chronically based for her, I do believe her hypotension is likely more related to her addisonian disease. Could not rule out infection with her elevation of her liver function tests, cholangitis was also possibility. Reassuring ultrasound was done of her gallbladder. I do believe covering her with ertapenem hospitalization IV fluids steroid replacement is needed in this lady. Urinalysis will also be obtained, to look for a UTI. As this is been a cause in the past. I will also do a portable chest, and her troponin was 0.02 but an EKG would be appropriate. I spoke to [facility] about her he accepted her. Vital Signs Vital signs: Initial Vital Signs Temperature 98.3 F 04/17/23 09:30 Temperature Source Temporal Artery Scan 04/17/23 09:30 Pulse Rate 90 04/17/23 09:30 Respiratory Rate 16 04/17/23 09:30 Blood Pressure 74/45 L 04/17/23 09:30 Blood Pressure Mean 54 L 04/17/23 09:30 Blood Pressure Position Supine 04/17/23 09:30 Pulse Oximetry 93 04/17/23 09:30 Oxygen Delivery Method Room Air 04/17/23 09:30 Vital Signs Temperature 98.3 F 04/17/23 09:30 Pulse Rate 90 04/17/23 09:30 Respiratory Rate 16 04/17/23 09:30 Blood Pressure 74/45 L 04/17/23 09:30 Pulse Oximetry 93 04/17/23 09:30 Oxygen Delivery Method Room Air 04/17/23 09:30 Temperature 98.3 F 04/17/23 09:30 Pulse Rate 78 04/17/23 11:31 Respiratory Rate 20 04/17/23 09:54 Blood Pressure 93/46 L 04/17/23 11:31 Pulse Oximetry 94 04/17/23 11:31 Oxygen Delivery Method Room Air 04/17/23 09:54 MDM - Weakness MDM Narrative Medical decision making narrative: Life-threatening differential diagnosis considered include stroke, coronary artery disease, pneumonia, and heart failure. Other differential diagnosis include but are not limited to electrolyte imbalances, anemia, medication reactions, and urinary tract infection Very challenging patient to figure out what is going on, in the past she has had an addisonian crisis. We will attempt to get IV access, this is been problematic and challenging in the past. They have to do ultrasound-guided. We will start her on ertapenem, along with fluids, and hydrocortisone, given her mydriad of issues. Medical Records Attestation: I reviewed the patient's medical records. Lab Data Attestation: I reviewed the patient's lab results. Labs: Lab Results 04/17/23 04/17/23 Range/Units 09:45 09:53 WBC 9.31 (4.50-11.00) K/uL RBC 4.63 (4.00-5.20) m/uL Hgb 13.8 (12.0-16.0) gm/dL Hct 40.7 (33.0-51.0) % MCV 88 (80-100) fL MCH 30 (26-34) pg MCHC 34 (32-36) gm/dL RDW Coeff of Sharmaine 14.0 (11.5-15.5) % Plt Count 278 (140-440) K/uL Neut % (Auto) 82.8 H (42.0-72.0) % Lymph % (Auto) 8.7 L (20-44) % Hayes % (Auto) 7.0 (0.0-11.0) % Eos % (Auto) 0.9 (0.0-7.0) % Baso % (Auto) 0.4 (0.0-3.0) % Neut # (Auto) 7.70 H (1.7-7.0) K/uL Lymph # (Auto) 0.80 L (0.90-2.90) K/uL Hayes # (Auto) 0.70 (0.00-0.90) K/UL Eos # (Auto) 0.08 (0.00-0.50) K/uL Baso # (Auto) 0.04 (0.00-0.30) K/uL Sodium 127 L (135-149) mmol/L Potassium 4.8 (3.6-5.1) mmol/L Chloride 98 (96-114) mmol/L Carbon Dioxide 19 L (20-32) mmol/L BUN 34 H (7-30) mg/dL Creatinine 1.3 (0.5-1.5) mg/dL Estimated GFR 40 ml/min Glucose 144 H (60-115) mg/dL Lactate 1.6 (0.5-1.9) mmol/L Calcium 9.7 (8.4-10.6) mg/dL Total Bilirubin 1.2 (0.1-1.5) mg/dL Direct Bilirubin 0.4 (0.0-0.5) mg/dL AST 317 H (12-35) U/L ALT 202 H (4-35) U/L Alkaline Phosphatase 243 H (40-150) U/L C-Reactive Protein 0.7 (0.5-1.0) mg/dL Total Protein 7.2 (6.0-8.3) g/dL Albumin 4.4 (3.3-5.0) g/dL SARS-CoV-2 (PCR) Negative SARS-CoV-2 (Negative) Influenza Type A (PCR) Negative PCR FLU A (Negative) Influenza Type B (PCR) Negative PCR FLU B (Negative) RSV (PCR) Negative PCR RSV (Negative) Imaging Data Ultrasound: Attestation: I have reviewed the pertinent imaging results. Radiologist's impression: Patient: BELTRAN SOMMERS Facility:?[facility] Patient ID:?[id number] Site Patient ID:?[id number]. Site :?[id number] Study:?US Abdomen RUQ-04/17/2023 11:59:18 AM Ordering Physician:Magdy Fuentes Final Report: INDICATION: Elevated LFTs TECHNIQUE: Ultrasound abdomen limited. Sonographic images of the right upper quadrant were obtained using [place]-scale and color Doppler images. COMPARISON: None FINDINGS: Liver: Normal in size and echotexture. No masses. Evidence of intrahepatic biliary dilatation. Gallbladder: Cholecystectomy. Common bile duct: 9 mm. Pancreas: Well-visualized. Right kidney: 10.1 cm. Normal echotexture and cortex. No masses, stones, or hydronephrosis. Vasculature: Proximal abdominal aorta and IVC are normal. IMPRESSION: Normal liver parenchyma. 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 Dictated by Edmund Ray MD @ 04/17/2023 12:11:28 PM Dictated by: Edmund Ray MD @ 04/17/2023 12:11:37 (Electronic Signature) Discharge Plan Discharge Clinical Impression: Acute hypotension, Chronic pain, High output ileostomy, POLST (Physician Orders for Life-Sustaining Treatment), Weakness, Chronic hyponatremia, Elevated liver transaminase level Patient Disposition: Admitted As Observation Prescriptions: No Action acetaminophen 500 mg capsule 1,000 mg PO QID PRN ondansetron HCl 4 mg tablet 4 mg PO Q6H PRN metoprolol tartrate 25 mg tablet 12.5 mg PO BID simethicone 80 mg tablet,chewable 80 mg PO BID Rx Instructions: PLUS PRN psyllium Powder 1 tbsp PO TID Rx Instructions: mix into at least 8 oz of water or juice before administering loperamide 2 mg Capsule 4 mg PO QID Rx Instructions: hold for formed thick stool in ostomy Citrucel (sucrose) Powder 1 tbsp PO DAILY sodium chloride 1,000 mg Tablet,Soluble 1,000 mg PO TIDWM 30 Days Qty: 90 0RF hydrocortisone 5 mg tablet 7.5 - 15 mg PO BID Rx Instructions: 15 MG IN AM, 7.5 MG IN PM levothyroxine 75 mcg tablet 75 mcg PO DAILY morphine 15 mg tablet extended release 15 mg PO TID estradiol 0.01 % (0.1 mg/gram) cream 1 appful VAGINAL MOTH Rx Instructions: FRI, insulin lispro [Humalog KwikPen Insulin] 100 unit/mL insulin pen 5 unit SUBCUT TIDWM Patient Comments: Rx Instructions: PLUS SLIDING SCALE coenzyme Q10 100 mg capsule 100 mg PO HS olopatadine 0.2 % drops 1 drp ophthalmic (eye) DAILY insulin glargine [Lantus Solostar U-100 Insulin] 100 unit/mL (3 mL) insulin pen 12 unit SUBCUT HS cholecalciferol (vitamin D3) 50 mcg (2,000 unit) tablet 4,000 unit PO HS Women's One Daily 18 mg iron-400 mcg-500 mg Ca tablet 1 tab PO DAILY vitamin B complex [Vitamins B Complex] Capsule 1 cap PO DAILY oxycodone 5 mg tablet 5 mg PO Q6H PRN Probiotic 3 billion cell capsule 3,000 mmu cells PO DAILY Rx Instructions: administer with a meal sertraline 50 mg tablet 50 mg PO DAILY Biotene Moisturizing Mouth [place],Non-Aerosol 1 applic mucous membrane Q1H PRN glucose [Dex4 Glucose] 4 gram tablet,chewable 4 g PO Q15M PRN furosemide 20 mg tablet 10 mg PO DAILY fludrocortisone 0.1 mg tablet 0.1 mg PO DAILY sodium bicarbonate 650 mg Tablet 650 mg PO TIDWM aspirin 81 mg tablet,chewable 81 mg PO DAILY@1200 Follow Up/Referrals: Onur Schreiber MD [Primary Care Provider] -
[2023-04-17] MEDS: 0.9 % SODIUM CHLORIDE 1000 ml 1,000 ML IV ×2 (09:52→11:24)
[2023-04-17] MEDS: HYDROCORTISONE SOD SUCCINATE 50 MG/ML inj 100 MG IVP (09:52)
[2023-04-17] MEDS: ERTAPENEM 1 GM in 0.9 % SODIUM CHLORIDE Mini-bag 100 ML IVPB (09:53)
[2023-04-17 09:59] LABS: Lactate* 1.6 mmol/L (0.5-1.9)
[2023-04-17 10:01] LABS: Basophils Absolute Auto 0.04 K/uL (0.00-0.30); Basophils Percent Auto 0.4 % (0.0-3.0); Eosinophils Absolute Auto 0.08 K/uL (0.00-0.50); Eosinophils Percent Auto 0.9 % (0.0-7.0); Hematocrit 40.7 % (33.0-51.0); Hemoglobin* 13.8 gm/dL (12.0-16.0); Immature Granulocytes Abs Auto 0.02 K/uL (0.00-0.30); Immature Granulocytes Pct Auto 0.2 %; Lymphocytes Percent Auto 8.7 % (20-44); Mean Corpuscular HGB Conc 34 gm/dL (32-36); Mean Corpuscular Hemoglobin 30 pg (26-34); Mean Corpuscular Volume 88 fL (80-100); Neutrophils Percent Auto 82.8 % (42.0-72.0); Platelet Count* 278 K/uL (140-440); Red Blood Count 4.63 m/uL (4.00-5.20); White Blood Count* 9.31 K/uL (4.50-11.00)
[2023-04-17 10:04] LABS: Slide Review Reflex No
[2023-04-17 10:16] LABS: Albumin* 4.4 g/dL (3.3-5.0); Chloride* 98 mmol/L (96-114)
[2023-04-17 10:17] LABS: Potassium* 4.8 mmol/L (3.6-5.1); Sodium* 127 mmol/L (135-149)
[2023-04-17 10:19] LABS: Aspartate Amino Transferase* 317 U/L (12-35); Bilirubin Direct* 0.4 mg/dL (0.0-0.5); Bilirubin Total* 1.2 mg/dL (0.1-1.5); Carbon Dioxide* 19 mmol/L (20-32); Creatinine* 1.3 mg/dL (0.5-1.5); Estimated Glomerular Filt Rate 40 ml/min; Total Protein* 7.2 g/dL (6.0-8.3)
[2023-04-17 10:20] LABS: Alanine Aminotransferase* 202 U/L (4-35); Alkaline Phosphatase* 243 U/L (40-150); Blood Urea Nitrogen* 34 mg/dL (7-30); Calcium* 9.7 mg/dL (8.4-10.6); Glucose* 144 mg/dL (60-115)
[2023-04-17 10:22] LABS: C Reactive Protein* 0.7 mg/dL (0.5-1.0)
[2023-04-17 10:40] LABS: PCR FLU A Negative PCR FLU A (Negative); PCR FLU B Negative PCR FLU B (Negative); PCR RSV Negative PCR RSV (Negative)
[2023-04-17 10:56] LABS: SARS PCR* Negative SARS-CoV-2 (Negative)
--- NOTE | 2023-04-17 11:03 | CRLHL7_ITS ---
For Patients: As a result of the Century Cures Act, medical imaging exams and procedure reports are released immediately into your electronic medical record. You may view this report before your referring provider. If you have questions, please contact your health care provider. INDICATION: Elevated LFTs TECHNIQUE: Ultrasound abdomen limited. Sonographic images of the right upper quadrant were obtained using [place]-scale and color Doppler images. COMPARISON: None FINDINGS: Liver: Normal in size and echotexture. No masses. Evidence of intrahepatic biliary dilatation. Gallbladder: Cholecystectomy. Common bile duct: 9 mm. Pancreas: Well-visualized. Right kidney: 10.1 cm. Normal echotexture and cortex. No masses, stones, or hydronephrosis. Vasculature: Proximal abdominal aorta and IVC are normal. IMPRESSION: Normal liver parenchyma. 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 Dictated by Edmund Ray MD @ 04/17/2023 12:11:28 PM Dictated by: Edmund Ray MD @ 04/17/2023 12:11:37 (Electronically Signed)
--- NOTE | 2023-04-17 12:25 | CRLHL7_ITS ---
For Patients: As a result of the Cures Act, medical imaging exams and procedure reports are released immediately into your electronic medical record. You may view this report before your referring provider. If you have questions, please contact your health care provider. INDICATION: Hypotension. TECHNIQUE : AP chest x-ray. COMPARISON : March 03, 2023. FINDINGS: The patient is clearly rotated towards the left. There is minor left basilar atelectasis or less likely fibrosis. The right lung is grossly clear. Normal heart size. Old posterior right rib fracture. Degenerative change of the shoulders. Surgical clips right upper quadrant. IMPRESSION: Atelectasis or perhaps fibrosis at the left lung base. No evidence for congestive heart failure. Dictated by Darrell Reardon MD @ 04/17/2023 1:48:37 PM (Electronically Signed)
[2023-04-17 12:31] LABS: Troponin, Point-of-Care* 0.02 ng/ml (0.01-0.04)
--- NOTE | 2023-04-17 13:05 | CRLHL7_ITS ---
For Patients: As a result of the Century Cures Act, medical imaging exams and procedure reports are released immediately into your electronic medical record. You may view this report before your referring provider. If you have questions, please contact your health care provider. Indication: Abnormal LFTS HYPOTENSION Technique: Postcontrast CT abdomen and pelvis. 49 cc Isovue 370 intravenous contrast. Please note that all CT scans at this facility use dose modulation, iterative reconstruction, and/or weight-based dosing when appropriate to reduce radiation dose to as low as reasonably achievable. Comparison: 03/27/2023, 03/03/2023 CT scans. 04/17/2023 ultrasound. Findings: Increased reticulonodular densities within both lower lobes. No pleural effusion. No free intraperitoneal air. Increased distention of the biliary tree with the common bile duct measuring up to 9 millimeters. Mild intrahepatic biliary duct dilation noted. The gallbladder is absent. No calcified stone material. No splenomegaly. The pancreas is diminutive without acute inflammatory change or mass. No adrenal lesion. No hydronephrosis or solid renal mass. No intrahepatic mass or stigmata of cirrhosis. Ectatic aorta with atherosclerotic disease. Bladder distended. No uterine mass. No adnexal mass. Colonic diverticulosis. No diverticulitis. No bowel obstruction. Right lower quadrant ostomy. Chronic fracture deformity of the left inferior pubic ramus. Chronic hypertrophic changes at the symphysis pubis. Old left sacral fracture. Wedge compression deformities involving all of the visualized vertebral bodies, as before. Impression: Increased densities in both lower lobes suggesting aspiration pneumonitis superimposed upon chronic scarring. Increased prominence of the intrahepatic and extrahepatic biliary tree. No intrahepatic mass or ascites. No hydronephrosis. Right lower quadrant ostomy without bowel obstruction or inflammatory changes regarding the bowel. Please note that all CT scans at this facility use dose modulation, iterative reconstruction, and/or weight-based dosing when appropriate to reduce radiation dose to as low as reasonably achievable. Dictated by Edmund Alanis MD @ 04/18/2023 6:46:30 AM (Electronically Signed)
--- NOTE | 2023-04-17 13:52 | P.IMHP_ITS ---
Hospitalist- H&P: HPI History of Present Illness Date Seen: 04/17/23 Chief complaint: weakness Narrative: Shira Stauffer is a 87 year old female with extensive complicated past medical history including hx of chronic kidney disease, Type I diabetes, history of pelvic fractures, hypertension, mild dementia, chronic adrenal insufficiency, hyponatremia, high output ileostomy, presumed hx of adult failure to thrive?presenting from [facility] for evaluation of generalized weakness. Per report she had stopped eating. At the time of my evaluation the patient can only give me her name but not provide any other history. In the ED the patient was hypotensive on arrival with SBP 70s. Notable labs included normal wbc, lactate. Sodium 127, Bicarb 19, AST 317, ALT 202, Alk Phos 247. Tbili WNL. CXR showed Atelectasis or perhaps fibrosis at the left lung base. No evidence for congestive heart failure. RUQ US showed Cholecystectomy with internet assessor expiratory ductal dilatation most likely related to reservoir effect. In the ED the patient was given stress dose steroids, IVF, ertapenem and admitted for further evaluation. RUQ US IMPRESSION: Normal liver parenchyma. Cholecystectomy with internet assessor expiratory ductal dilatation most likely related to reservoir effect. CXR Atelectasis or perhaps fibrosis at the left lung base. No evidence for congestive heart failure. EKG-NSR Review of Systems Status of ROS: Reports: unobtainable due to medical condition [facility] Medical History Left knee pain ?M25.562 - Pain in left knee (ICD-10) Ileostomy in place ?Z93.2 - Ileostomy status (ICD-10) Back pain ?M54.9 - Dorsalgia, unspecified (ICD-10) Unsteady gait ?R26.81 - Unsteadiness on feet (ICD-10) Polypharmacy ?Z79.899 - Other termite control representative (current) drug therapy (ICD-10) Pain of cervical spine ?M54.2 - Cervicalgia (ICD-10) Pain in jaw not originating in temporomandibular joint ?R68.84 - Jaw pain (ICD-10) Osteoporosis ?M81.0 - Age-related osteoporosis without current pathological fracture (ICD- 10) Low back pain ?M54.50 - Low back pain, unspecified (ICD-10) Ketoacidosis due to diabetes mellitus (08/03/13) ?E11.10 - Type 2 diabetes mellitus with ketoacidosis without coma (ICD-10) Irritable bowel syndrome ?K58.9 - Irritable bowel syndrome without diarrhea (ICD-10) Impacted cerumen ?H61.20 - Impacted cerumen, unspecified ear (ICD-10) Hematoma of occipital region of scalp ?S00.03XA - Contusion of scalp, initial encounter (ICD-10) Falls (03/31/12) ?W19.XXXA - Unspecified fall, initial encounter (ICD-10) Epistaxis ?R04.0 - Epistaxis (ICD-10) Diverticulitis of large intestine ?K57.32 - Diverticulitis of large intestine without perforation or abscess without bleeding (ICD-10) Diabetic gastroparesis (08/03/13) ?E11.43 - Type 2 diabetes mellitus with diabetic autonomic (poly)neuropathy (ICD-10) ?K31.84 - Gastroparesis (ICD-10) Coronary artery disease ?I25.10 - Atherosclerotic heart disease of [place] coronary artery without angina pectoris (ICD-10) Contusion of chest (03/31/12) ?S20.219A - Contusion of unspecified front wall of thorax, initial encounter (ICD-10) Concussion (03/29/12) ?S06.0XAA - Concussion with loss of consciousness status unknown, initial encounter (ICD-10) Compression fracture of vertebral column (07/26/13) ?M48.50XA - Collapsed vertebra, not elsewhere classified, site unspecified, initial encounter for fracture (ICD-10) Compression fracture of L2 vertebra with delayed healing ?S32.020G - Wedge compression fracture of second lumbar vertebra, subsequent encounter for fracture with delayed healing (ICD-10) Closed head injury ?S09.90XA - Unspecified injury of head, initial encounter (ICD-10) Closed fracture of superior ramus of right pubis ?S32.511A - Fracture of superior rim of right pubis, initial encounter for closed fracture (ICD-10) Closed fracture of left side of symphysis pubis ?S32.592A - Other specified fracture of left pubis, initial encounter for closed fracture (ICD-10) Closed fracture of left inferior pubic ramus ?S32.592A - Other specified fracture of left pubis, initial encounter for closed fracture (ICD-10) Chronic constipation (07/02/13) ?K59.09 - Other constipation (ICD-10) Bacterial pneumonia (07/02/13) ?J15.9 - Unspecified bacterial pneumonia (ICD-10) Anxiety disorder ?F41.9 - Anxiety disorder, unspecified (ICD-10) [place]'s disease ?E27.1 - Primary adrenocortical insufficiency (ICD-10) Seizure ?R56.9 - Unspecified convulsions (ICD-10) Hypothyroidism ?E03.9 - Hypothyroidism, unspecified (ICD-10) Hyponatremia (12/22/11) ?E87.1 - Hypo-osmolality and hyponatremia (ICD-10) Hyperkalemia (12/22/11) ?E87.5 - Hyperkalemia (ICD-10) Gastroesophageal reflux disease ?K21.9 - Gastro-esophageal reflux disease without esophagitis (ICD-10) Chronic pain ?G89.29 - Other chronic pain (ICD-10) Asthma ?J45.909 - Unspecified asthma, uncomplicated (ICD-10) Acute adrenal crisis ?E27.2 - Addisonian crisis (ICD-10) POLST (Physician Orders for Life-Sustaining Treatment) ?Z78.9 - Other specified health status (ICD-10) Health care directive on file ?Z78.9 - Other specified health status (ICD-10) High output ileostomy ?R19.8 - Other specified symptoms and signs involving the digestive system and abdomen (ICD-10) ?Z93.2 - Ileostomy status (ICD-10) Hyperkalemia ?E87.5 - Hyperkalemia (ICD-10) Abnormal liver enzymes ?R74.8 - Abnormal levels of other serum enzymes (ICD-10) Dementia ?F03.90 - Unspecified dementia without behavioral disturbance (ICD-10) Cataract ?H26.9 - Unspecified cataract (ICD-10) Dorsalgia ?M54.9 - Dorsalgia, unspecified (ICD-10) Hyperlipidemia ?E78.5 - Hyperlipidemia, unspecified (ICD-10) Unspecified dementia without behavioral disturbance ?F03.90 - Unspecified dementia without behavioral disturbance (ICD-10) Postmenopausal atrophic vaginitis ?N95.2 - Postmenopausal atrophic vaginitis (ICD-10) Convulsions ?R56.9 - Unspecified convulsions (ICD-10) Pressure ulcer of sacral region, unstageable ?L89.150 - Pressure ulcer of sacral region, unstageable (ICD-10) Constipation ?K59.00 - Constipation, unspecified (ICD-10) Primary hypertension ?I10 - Essential (primary) hypertension (ICD-10) Vertebral fracture Osteoarthritis ?M19.90 - Unspecified osteoarthritis, unspecified site (ICD-10) Chronic kidney disease (CKD) stage G3a/A1, moderately decreased glomerular filtration rate (GFR) between 45-59 mL/min/1.73 square meter and albuminuria creatinine ratio less than 30 mg/g ?N18.31 - Chronic kidney disease, stage 3a (ICD-10) 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 - Atherosclerotic heart disease of [place] coronary artery without angina pectoris (ICD-10) GERD (gastroesophageal reflux disease) ?K21.9 - Gastro-esophageal reflux disease without esophagitis (ICD-10) Anxiety ?F41.9 - Anxiety disorder, unspecified (ICD-10) Pelvic fracture ?S32.9XXA - Fracture of unspecified parts of lumbosacral spine and pelvis, initial encounter for closed fracture (ICD-10) Primary adrenocortical insufficiency ?E27.1 - Primary adrenocortical insufficiency (ICD-10) Diabetes mellitus type 1 ?E10.9 - Type 1 diabetes mellitus without complications (ICD-10) Surgical History S/P small bowel resection ?Z90.49 - Acquired absence of other specified parts of digestive tract (ICD- 10) H/O angioplasty ?Z98.62 - Peripheral vascular angioplasty status (ICD-10) H/O mastoidectomy ?Z90.89 - Acquired absence of other organs (ICD-10) S/P laparoscopic cholecystectomy ?Z90.49 - Acquired absence of other specified parts of digestive tract (ICD- 10) S/P appendectomy ?Z90.49 - Acquired absence of other specified parts of digestive tract (ICD- 10) No significant past surgical history Social History Narrative: Patient lives in a residential. What is your current living situation: I presently have a place to live Problems where you live: no known problems Problems where you live details: none In the past 12 months, utilities in danger of being shut off: no In the past 12 mos, have been you worried that your food would run out before you had money to buy more?: never true In the past 12 mos, the food you bought just didn't last and you didn't have money to buy more?: never true Highest level of school completed/degree received: Master's degree Smoking Status: Never smoker Do you use any of these nicotine containing products: None Second hand tobacco smoke exposure: No How often do you have a drink containing alcohol: never How often do you have six or more drinks on one occasion: Never AUDIT-C Alcohol total score: 0 Non-prescribed substance use: denies use Caffeine: Yes (diet coke) How often does anyone, including family, friends and others, physically hurt you : How often does anyone, including family, friends and others, insult or talk down to you: How often does anyone, including family, friends and others, threaten you with harm: How often does anyone, including family, friends and others, scream or curse at you: service: No Meds Home Medications and Allergies Home Medications Medication Instructions Recorded Confirmed Type cholecalciferol (vitamin D3) 50 4,000 unit PO HS 05/02/22 04/17/23 History mcg (2,000 unit) tablet coenzyme Q10 100 mg capsule 100 mg PO HS 05/02/22 04/17/23 History estradiol 0.01% (0.1 mg/gram) 1 appful vaginal MOTH@09 05/02/22 04/17/23 History vaginal cream hydrocortisone 5 mg tablet 7.5 - 15 mg PO BID 05/02/22 04/17/23 History insulin glargine 100 unit/mL (3 15 unit subcut HS 05/02/22 04/17/23 History mL) subcutaneous pen (Lantus Solostar U-100 Insulin) insulin lispro 100 unit/mL 5 unit subcut TIDWM 05/02/22 04/17/23 History subcutaneous pen (Humalog KwikPen (U-100) Insulin) lactobacillus combination no.4 3 3,000 mmu cells PO DAILY 05/02/22 04/17/23 History billion cell capsule (Probiotic) levothyroxine 75 mcg tablet 75 mcg PO DAILY 05/02/22 04/17/23 History morphine 15 mg tablet,extended 15 mg PO TID 05/02/22 04/17/23 History release multivit-iron 18 mg-folic acid 400 1 tab PO DAILY 05/02/22 04/17/23 History mcg-calcium 500 mg-minerals tablet (Women's One Daily) olopatadine 0.2 % eye drops 1 drp ophthalmic (eye) DAILY 05/02/22 04/17/23 History oxycodone 5 mg tablet 5 mg PO Q6H PRN 05/02/22 04/17/23 History vitamin B complex (Vitamins B 1 cap PO DAILY 05/02/22 04/17/23 History Complex capsule) acetaminophen 500 mg capsule 1,000 mg PO QID PRN 05/28/22 03/27/23 History metoprolol tartrate 25 mg tablet 12.5 mg PO BID 05/28/22 04/17/23 History ondansetron HCl 4 mg tablet 4 mg PO Q6H PRN 05/28/22 04/17/23 History simethicone 80 mg chewable tablet 80 mg PO BID 05/28/22 04/17/23 History aspirin 81 mg chewable tablet 81 mg PO DAILY@1200 03/03/23 04/17/23 History fludrocortisone 0.1 mg tablet 0.1 mg PO DAILY 03/03/23 04/17/23 History furosemide 20 mg tablet 10 mg PO DAILY 03/03/23 04/17/23 History glucose 4 gram chewable tablet 4 g PO Q15M PRN 03/03/23 04/17/23 History (Dex4 Glucose) saliva stimulant comb. no.3 1 applic mucous membrane Q1H PRN 03/03/23 04/17/23 History (Biotene Moisturizing Mouth mucosal spray) sertraline 50 mg tablet 50 mg PO DAILY 03/03/23 04/17/23 History sodium bicarbonate 650 mg tablet 650 mg PO TIDWM 03/03/23 04/17/23 History loperamide 2 mg capsule 4 mg PO QID 03/27/23 04/17/23 History psyllium 1 tbsp PO TID 03/27/23 04/17/23 History Allergies Allergy/AdvReac Type Severity Reaction Status Date / Time adhesive tape Allergy Mild Rash Verified 04/17/23 13:35 diclofenac Allergy Unknown Verified 04/17/23 13:35 aspartame Allergy Verified 04/17/23 13:35 beclomethasone Allergy Verified 04/17/23 13:35 bisacodyl Allergy Verified 04/17/23 13:35 dexamethasone Allergy Verified 04/17/23 13:35 doxycycline Allergy Verified 04/17/23 13:35 erythromycin base Allergy Verified 04/17/23 13:35 gabapentin Allergy Verified 04/17/23 13:35 hydrochlorothiazide Allergy Verified 04/17/23 13:35 lactase [From Dairy Aid] Allergy Verified 04/17/23 13:35 meclizine Allergy Verified 04/17/23 13:35 metformin Allergy Verified 04/17/23 13:35 metoclopramide Allergy Verified 04/17/23 13:35 nabumetone [From Relafen] Allergy Verified 04/17/23 13:35 propranolol Allergy Verified 04/17/23 13:35 raloxifene Allergy Verified 04/17/23 13:35 ramipril Allergy Verified 04/17/23 13:35 tobramycin Allergy Verified 04/17/23 13:35 venlafaxine Allergy Verified 04/17/23 13:35 Exam Narrative: Exam Narrative: Gen: no acute distress; lethargic HEENT: NCAT EOMI mmm Neck: Supple CV: RRR normal s1 s2 Lungs: CTAB Abd: Soft,mild tenderness; ostomy intact Neuro: Alert, oriented to person but not place or time; unable to follow commands Psych: flat affect MSK: decreased muscle mass Skin; Warm, dry no rash on face Const: Vital Signs, click to edit/add: Vital Signs - 24 hr 04/17/23 09:30 04/17/23 09:54 04/17/23 10:06 Temperature 98.3 F Pulse Rate 90 Pulse Rate [Right Pulse Oximeter] 90 89 Respiratory Rate 16 20 Blood Pressure Blood Pressure [Ri ght Upper Arm] 74/45 L 84/50 L Pulse Oximetry 93 91 94 Oxygen Delivery Me thod Room Air Room Air 04/17/23 10:16 04/17/23 10:17 04/17/23 10:30 Temperature Pulse Rate 88 86 Pulse Rate [Right Pulse Oximeter] Respiratory Rate Blood Pressure 100/49 L Blood Pressure [Ri ght Upper Arm] Pulse Oximetry 89 90 Oxygen Delivery Me thod 04/17/23 10:31 04/17/23 10:45 04/17/23 10:46 Temperature Pulse Rate 83 79 78 Pulse Rate [Right Pulse Oximeter] Respiratory Rate Blood Pressure 95/47 L 97/47 L Blood Pressure [Ri ght Upper Arm] Pulse Oximetry 92 89 [facility] 04/17/23 11:01 04/17/23 11:15 Temperature Pulse Rate 77 76 77 Pulse Rate [Right Pulse Oximeter] Respiratory Rate Blood Pressure 94/43 L Blood Pressure [Ri ght Upper Arm] Pulse Oximetry 92 91 [facility] 11:16 04/17/23 11:30 04/17/23 11:31 Temperature Pulse Rate 77 80 78 Pulse Rate [Right Pulse Oximeter] Respiratory Rate Blood Pressure 81/41 L 93/46 L Blood Pressure [Ri ght Upper Arm] Pulse Oximetry 97 94 94 Oxygen Delivery [facility] Hospitalist - H&P: Result Labs Labs: Short CBC 04/17/23 Range/Units 09:53 WBC 9.31 (4.50-11.00) K/uL Hgb 13.8 (12.0-16.0) gm/dL Hct 40.7 (33.0-51.0) % Plt Count 278 (140-440) K/uL BMP 04/17/23 09:53 Sodium 127 L Potassium 4.8 Chloride 98 Carbon Dioxide 19 L BUN 34 H Creatinine 1.3 Glucose 144 H Calcium 9.7 Liver Function 04/17/23 Range/Units 09:53 Total Bilirubin 1.2 (0.1-1.5) mg/dL Direct Bilirubin 0.4 (0.0-0.5) mg/dL AST 317 H (12-35) U/L ALT 202 H (4-35) U/L Alkaline Phosphatase 243 H (40-150) U/L Albumin 4.4 (3.3-5.0) g/dL Assessment and Plan Assessment and plan (1) Elevated liver transaminase level: Status: Acute (2) Weakness: Status: Acute (3) Chronic hyponatremia: Status: Acute (4) Acute hypotension: Status: Acute Plan Assessment Shira Stauffer is a 87 year old female with extensive complicated past medical history including hx of chronic kidney disease, Type I diabetes, history of pelvic fractures, hypertension, mild dementia, chronic adrenal insufficiency, hyponatremia, high output ileostomy, presumed hx of adult failure to thrive?presenting from [facility] for evaluation of generalized weakness. Per report she had stopped eating. At the time of my evaluation the patient can only give me her name but not provide any other history. In the ED the patient was hypotensive on arrival with SBP 70s. Notable labs included normal wbc, lactate. Sodium 127, Bicarb 19, AST 317, ALT 202, Alk Phos 247. Tbili WNL. CXR showed Atelectasis or perhaps fibrosis at the left lung base. No evidence for congestive heart failure. RUQ US showed Cholecystectomy with internet assessor expiratory ductal dilatation most likely related to reservoir effect. In the ED the patient was given stress dose steroids, IVF, ertapenem and admitted for further evaluation. 1. Acute on chronic adrenal insufficiency 2. Abnormal LFts 3. Hx of Type I DM 4. hx of HTN, CAD 5. Hx of Dementia 6. Chronic hyponatremia 7. Failure to thrive 8. Hx of high output ileostomy Plan -admit to inpatient -CT AP pending -MRCP -obtain UA -continue stress dose steroids -IVF -check procal -trend LFTs -continue ertapnem for now but low threshold for dc'ing as no known source Code-DNR DVT ppx-heparin subq
[2023-04-17 15:26] LABS: Procalcitonin* 0.13 ng/mL (<0.50)
[2023-04-17] MEDS: 0.9 % SODIUM CHLORIDE 1000 ml 1,000 ML 100 ML IV (15:28)
[2023-04-17] MEDS: HYDROCORTISONE SOD SUCCINATE 50 MG/ML inj IVP (17:32)
[2023-04-17] MEDS: LOPERAMIDE HCL 2 MG CAPSULE 4 MG PO ×2 (17:32→20:59)
[2023-04-17] MEDS: SODIUM CHLORIDE 1 GM TABLET PO (17:32)
[2023-04-17] MEDS: 0.9 % SODIUM CHLORIDE 500 ML 500 ML IV (18:32)
--- NOTE | 2023-04-17 19:36 | PC.NURSE ---
Nursing Care Hours: [id number] pt this shift arrived on cart from ED. Responds to administrative underwriter with a light hum sound and yes or no answers. Mostly sleeping. Denies pain but when turned and repositioned, pt grimaces and moans. 5-7 small circular bruises to L hip in various stages. Skin over coccyx is bright red and swollen but skin intact. Mepilex applied. Some scattered abrasions to lower anterior shins. Alert to self, does not know time or place. When asked what month, patient spoke a name unheard of by administrative underwriter. When asked about primary contact, pt stated son but gave un unrecognizable name and when asked to spell it, spelling did not match name given. Pt observed feeding self some dinner but, 25% through, pt fell asleep. BP soft at 94/41 and 93/46. Fluid bolus given. Takes pills by mouth with water but increased cough noted. LS and diminished bases. Incontinent brief changed x1, 300ml liquid dark green stool removed from ostomy bag.
[2023-04-17] MEDS: HEPARIN 5,000 UNIT/0.5 ML INJ 5000 UNIT SUBCUT (19:49)
[2023-04-17] MEDS: COENZYME Q10 100 MG CAPSULE PO (20:59)
[2023-04-17] MEDS: SIMETHICONE 80 MG TAB.CHEW PO (21:00)
[2023-04-17 21:25] LABS: Appearance Urine Clear (Clear); Bilirubin Urine Negative (Negative); Blood Urine Trace-lysed (Negative); Color Urine Yellow (Yellow); Glucose Urine Negative (Negative); Ketones Urine Negative (Negative); Leukocyte Esterase Urine Trace (Negative); Nitrite Urine Negative (Negative); Protein Urine 1+ (Negative); Urobilinogen Urine 0.2 (0.2-1.0); pH Urine 5.5 (5.0-8.5)
[2023-04-17 21:55] LABS: Squamous Epithelial Cell Urine Few (None-Few)
[2023-04-17 21:56] LABS: Fine Granular Casts Urine Few
[2023-04-18] VITALS (10 sets, daily range): BP systolic 100–123; BP diastolic 49–59; PULSE 79–92; RESP 16–18; TEMP 36.4–36.8; O2SAT 94–98; BMI 15.3
[2023-04-18] MEDS: HYDROCORTISONE SOD SUCCINATE 50 MG/ML inj IVP ×3 (01:32→18:53)
[2023-04-18] MEDS: 0.9 % SODIUM CHLORIDE 1000 ml 1,000 ML 100 ML IV (01:32)
--- NOTE | 2023-04-18 04:09 | PC.NURSE ---
PATIENT PLEASANT AND COOPERATIVE, ALERT TO SELF, BEDREST WITH TURN AND REPO Q2H, BLOOD SUGARS CHECKED THROUGHOUT SHIFT AT 0000 E-HOSPITALIST PHONED WITH BG OF 60, AT THIS TIME PATIENT WAS ABLE TO DRINK SOME OJ NPO STATUS NOT YET STARTED, PRN HYPOGLYCEMIA ORDERS OBTAINED, SEE BLOOD SUGAR MONITORING FOR TREND, DECLINING PAIN ALTHOUGH OCCASIONALLY MOANS WITH REPOSITIONING, TELE SHOWING NSR, EPPS PATENT AND DRAINING, OSTOMY EMPTIED AND CHECKED AT LEAST Q2H.
[2023-04-18] MEDS: 5 % DEXTROSE/0.9% SOD CHLORIDE 1,000 ML 75 ML IV (04:18)
[2023-04-18 06:26] LABS: Hematocrit 30.3 % (33.0-51.0); Immature Granulocytes Abs Auto 0.09 K/uL (0.00-0.30); Immature Granulocytes Pct Auto 1.2 %; Lymphocytes Percent Auto 9.3 % (20-44); Mean Corpuscular HGB Conc 33 gm/dL (32-36); Mean Corpuscular Hemoglobin 30 pg (26-34); Mean Corpuscular Volume 91 fL (80-100); Monocytes Percent Auto 3.3 % (0.0-11.0); Neutrophils Percent Auto 86.2 % (42.0-72.0); Platelet Count* 220 K/uL (140-440); RDW Coefficient of Variation % 14.2 % (11.5-15.5); Red Blood Count 3.34 m/uL (4.00-5.20); White Blood Count* 7.34 K/uL (4.50-11.00)
[2023-04-18 06:36] LABS: Slide Review Reflex No
[2023-04-18 06:49] LABS: Chloride* 108 mmol/L (96-114)
[2023-04-18 06:50] LABS: Potassium* 4.2 mmol/L (3.6-5.1); Sodium* 132 mmol/L (135-149)
[2023-04-18 06:52] LABS: Bilirubin Total* 0.7 mg/dL (0.1-1.5); Carbon Dioxide* 18 mmol/L (20-32); Creatinine* 0.9 mg/dL (0.5-1.5); Est. Creatinine Clearance* 28.92; Estimated Glomerular Filt Rate 63 ml/min
[2023-04-18 06:53] LABS: Alanine Aminotransferase* 124 U/L (4-35); Alkaline Phosphatase* 175 U/L (40-150); Aspartate Amino Transferase* 111 U/L (12-35); Blood Urea Nitrogen* 24 mg/dL (7-30); Calcium* 8.5 mg/dL (8.4-10.6); Glucose* 106 mg/dL (60-115); Total Protein* 5.4 g/dL (6.0-8.3)
--- NOTE | 2023-04-18 07:00 | CRLHL7_ITS ---
For Patients: As a result of the Cures Act, medical imaging exams and procedure reports are released immediately into your electronic medical record. You may view this report before your referring provider. If you have questions, please contact your health care provider. INDICATION: Elevated liver enzymes. COMPARISON: CT abdomen and pelvis with intravenous contrast April 17, 2023 and May 27, 2022. Technique: MRCP. FINDINGS: Status post cholecystectomy. Tortuous dilated extrahepatic bile duct measuring up to 10 mm in diameter. No evidence of choledocholithiasis. Minimal prominence of the intrahepatic biliary duct system. Non dilated pancreatic duct. IMPRESSION: 1. Status post cholecystectomy. 2. Dilated extrahepatic common bile duct measuring up to 10 mm in diameter. 3. No evidence of choledocholithiasis. Dictated by Ross Benz MD @ 04/18/2023 1:15:39 PM (Electronically Signed)
[2023-04-18] MEDS: PIPERACILLIN/TAZOBACTAM 3.375 GM in 0.9 % SODIUM CHLORIDE Mini-bag 100 ML IVPB ×3 (09:35→21:00)
--- NOTE | 2023-04-18 09:37 | PM.IMPN1 ---
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 Status: Acute (9) Adult failure to thrive: Status: Acute (10) High output ileostomy: Status: Chronic Assessment and Plan: Assessment: Assessment Shira Stauffer is a 87 year old female with extensive complicated past medical history including hx of chronic kidney disease, Type I diabetes, history of pelvic fractures, hypertension, mild dementia, chronic adrenal insufficiency, hyponatremia, high output ileostomy, presumed hx of adult failure to thrive?presenting from [facility] for evaluation of generalized weakness. Per report she had stopped eating. At the time of my evaluation the patient can only give me her name but not provide any other history. In the ED the patient was hypotensive on arrival with SBP 70s. Notable labs included normal wbc, lactate. Sodium 127, Bicarb 19, AST 317, ALT 202, Alk Phos 247. Tbili WNL. CXR showed?Atelectasis or perhaps fibrosis at the left lung base. No evidence for congestive heart failure. RUQ US showed Cholecystectomy with international coordinator expiratory ductal dilatation most likely related to reservoir effect. In the ED the patient was given stress dose steroids, IVF, ertapenem and admitted for further evaluation. CT AP Impression: Increased densities in both lower lobes suggesting aspiration pneumonitis superimposed upon chronic scarring. Increased prominence of the intrahepatic and extrahepatic biliary tree. No intrahepatic mass or ascites. No hydronephrosis. Right lower quadrant ostomy without bowel obstruction or inflammatory changes regarding the bowel. 1. Acute on chronic adrenal insufficiency 2. Abnormal LFts 3. Hx of Type I DM 4. hx of HTN, CAD 5. Hx of Dementia 6. Chronic hyponatremia 7. Failure to thrive 8. Hx of high output ileostomy 9. Aspiration Pneumonitis vs PNA Plan -MRCP today 04/18 -UCx add on -continue stress dose steroids -IVF -trend LFTs; improving from admission -antibiotics: A) Ertapenem-04/17 one dose B) Zosyn-start 04/18 for possible aspiration PNA -NPO -SECONDS GRADER consult toda -PT, OT evaluation -increase sodium bicarb TID->QID (04/18) Code-DNR/DNI DVT ppx-heparin subq Time Spent With Patient Total time spent: 35 Subjective Date Seen: 04/18/23 Interval history: patient more alert this morning denies sob active coughing CT AP concerning for aspiration pneumonitis currently NPO awaiting MRCP and SECONDS GRADER evaluation Hypotension improving Exam Narrative: Exam Narrative: Gen: no acute distress HEENT: NCAT EOMI mmm Neck: Supple CV: RRR normal s1 s2 Lungs: CTAB Abd: Soft,nt, nd; ostomy intact with output Neuro: Alert, oriented person/place appears at baseline state Psych: flat affect MSK: decreased muscle mass Skin; Warm, dry no rash on face Const: Vital Signs, click to edit/add: Vital Signs - 24 hr 04/17/23 09:54 04/17/23 10:06 04/17/23 10:16 Temperature Pulse Rate 90 Pulse Rate [Left P ulse Oximeter] Pulse Rate [Right Pulse Oximeter] 89 Respiratory Rate 20 Blood Pressure 100/49 L Blood Pressure [Ri ght Arm] Blood Pressure [Ri ght Upper Arm] 84/50 L Pulse Oximetry 91 94 Oxygen Delivery Me od Room Air 04/17/23 10:17 04/17/23 10:30 04/17/23 10:31 Temperature Pulse Rate 88 86 83 Pulse Rate [Left P ulse Oximeter] Pulse Rate [Right Pulse Oximeter] Respiratory Rate Blood Pressure 95/47 L Blood Pressure [Ri ght Arm] Blood Pressure [Ri ght Upper Arm] Pulse Oximetry 89 90 92 Oxygen Delivery Me thod 04/17/23 10:45 04/17/23 10:46 04/17/23 11:00 Temperature Pulse Rate 79 78 77 Pulse Rate [Left P ulse Oximeter] Pulse Rate [Right Pulse Oximeter] Respiratory Rate Blood Pressure 97/47 L Blood Pressure [Ri ght Arm] Blood Pressure [Ri ght Upper Arm] Pulse Oximetry 89 93 92 [facility] 11:01 04/17/23 11:15 04/17/23 11:16 Temperature Pulse Rate 76 77 77 Pulse Rate [Left P ulse Oximeter] Pulse Rate [Right Pulse Oximeter] Respiratory Rate Blood Pressure 94/43 L 81/41 L Blood Pressure [Ri ght Arm] Blood Pressure [Ri ght Upper Arm] Pulse Oximetry 91 97 97 Oxygen Delivery Me thod 04/17/23 11:30 04/17/23 11:31 04/17/23 13:25 Temperature Pulse Rate 80 78 73 Pulse Rate [Left P ulse Oximeter] Pulse Rate [Right Pulse Oximeter] Respiratory Rate Blood Pressure 93/46 L Blood Pressure [Ri ght Arm] Blood Pressure [Ri ght Upper Arm] Pulse Oximetry 94 94 Oxygen Delivery Me thod 04/17/23 15:26 04/17/23 18:32 04/17/23 19:00 Temperature 97.2 F L Pulse Rate Pulse Rate [Left P ulse Oximeter] 79 77 66 Pulse Rate [Right Pulse Oximeter] Respiratory Rate 18 12 Blood Pressure Blood Pressure [Ri ght Arm] 90/41 L 112/56 L 97/49 L Blood Pressure [Ri ght Upper Arm] Pulse Oximetry 95 96 Oxygen Delivery [facility] Room Air Room Air 04/17/23 23:00 04/17/23 23:00 04/18/23 01:49 Temperature 98.2 F 98.2 F Pulse Rate 77 Pulse Rate [Left P ulse Oximeter] 66 84 Pulse Rate [Right Pulse Oximeter] Respiratory Rate 16 16 Blood Pressure Blood Pressure [Ri ght Arm] 103/42 L 100/52 L Blood Pressure [Ri ght Upper Arm] Pulse Oximetry 98 94 Oxygen Delivery [facility] Room Air Room Air 04/18/23 03:53 04/18/23 06:00 Temperature 98.2 F Pulse Rate Pulse Rate [Left P ulse Oximeter] 88 Pulse Rate [Right Pulse Oximeter] Respiratory Rate 18 Blood Pressure Blood Pressure [Ri ght Arm] 107/49 L 105/56 L Blood Pressure [Ri ght Upper Arm] Pulse Oximetry 95 [facility] Labs Labs: Laboratory Results - last 24 hr 04/17/23 04/17/23 04/17/23 09:45 09:53 09:55 WBC 9.31 RBC 4.63 Hgb 13.8 Hct 40.7 MCV 88 MCH 30 MCHC 34 RDW Coeff of Sharmaine 14.0 Plt Count 278 Neut % (Auto) 82.8 H Lymph % (Auto) 8.7 L [place] % (Auto) 7.0 Eos % (Auto) 0.9 Baso % (Auto) 0.4 Neut # (Auto) 7.70 H Lymph # (Auto) 0.80 L [place] # (Auto) 0.70 Eos # (Auto) 0.08 Baso # (Auto) 0.04 Sodium 127 L Potassium 4.8 Chloride 98 Carbon Dioxide 19 L BUN 34 H Creatinine 1.3 Estimated Creat Clear Estimated GFR 40 Glucose 144 H Lactate 1.6 Calcium 9.7 Total Bilirubin 1.2 Direct Bilirubin 0.4 AST 317 H ALT 202 H Alkaline Phosphatase 243 H C-Reactive Protein 0.7 Total Protein 7.2 Albumin 4.4 Procalcitonin 0.13 Urine Color Urine Appearance Urine pH Ur Specific [place] Urine Protein Urine Glucose (UA) Urine Ketones Urine Blood Urine Nitrite Urine Bilirubin Urine Urobilinogen Ur Leukocyte Esterase Urine RBC Urine WBC Ur Squamous Epith Cells Urine Bacteria Fine Granular Casts Urine Yeast SARS-CoV-2 (PCR) Negative SARS-CoV-2 Influenza Type A (PCR) Negative PCR FLU A Influenza Type B (PCR) Negative PCR FLU B RSV (PCR) Negative PCR RSV Lab Acknowledgement POC Troponin I 0.02 04/17/23 04/17/23 04/18/23 13:27 21:15 05:48 WBC 7.34 RBC 3.34 L Hgb 10.0 L Hct 30.3 L MCV 91 MCH 30 MCHC 33 RDW Coeff of Sharmaine 14.2 Plt Count 220 Neut % (Auto) 86.2 H Lymph % (Auto) 9.3 L [place] % (Auto) 3.3 Eos % (Auto) 0.0 Baso % (Auto) 0.0 Neut # (Auto) 6.30 Lymph # (Auto) 0.70 L [place] # (Auto) 0.20 Eos # (Auto) 0.00 Baso # (Auto) 0.00 Sodium 132 L Potassium 4.2 Chloride 108 Carbon Dioxide 18 L BUN 24 Creatinine 0.9 Estimated Creat Clear 28.92 Estimated GFR 63 Glucose 106 Lactate Calcium 8.5 Total Bilirubin 0.7 Direct Bilirubin 0.0 AST 111 H ALT 124 H Alkaline Phosphatase 175 H C-Reactive Protein Total Protein 5.4 L Albumin 3.0 L Procalcitonin Urine Color Yellow Urine Appearance Clear Urine pH 5.5 Ur Specific [place] 1.020 Urine Protein 1+ A Urine Glucose (UA) Negative Urine Ketones Negative Urine Blood Trace-lysed A Urine Nitrite Negative Urine Bilirubin Negative Urine Urobilinogen 0.2 Ur Leukocyte Esterase Trace A Urine RBC 2-5 A Urine WBC 2-5 Ur Squamous Epith Cells Few Urine Bacteria None Fine Granular Casts Few A Urine Yeast Few A SARS-CoV-2 (PCR) Influenza Type A (PCR) Influenza Type B (PCR) RSV (PCR) Lab Acknowledgement Test Added POC Troponin I
[2023-04-18] MEDS: HEPARIN 5,000 UNIT/0.5 ML INJ 5000 UNIT SUBCUT ×2 (11:48→20:06)
[2023-04-18] MEDS: LOPERAMIDE HCL 2 MG CAPSULE 4 MG PO ×2 (11:49→12:40)
[2023-04-18] MEDS: LEVOTHYROXINE 75 MCG TABLET PO (11:49)
[2023-04-18] MEDS: SODIUM CHLORIDE 1 GM TABLET PO (11:49)
[2023-04-18] MEDS: SIMETHICONE 80 MG TAB.CHEW PO (11:49)
[2023-04-18] MEDS: SERTRALINE 50 MG TABLET PO (11:50)
[2023-04-18] MEDS: ASPIRIN 81 MG TAB.CHEW PO (11:50)
[2023-04-18] MEDS: LACTOBACILLUS ACIDOPHILUS 1 TABLET 1 TAB PO (11:50)
[2023-04-18] MEDS: 5 % DEXTROSE/0.9% SOD CHLORIDE 1,000 ML 50 ML IV (18:53)
[2023-04-19] MEDS: HYDROCORTISONE SOD SUCCINATE 50 MG/ML inj IVP ×2 (02:30→10:26)
[2023-04-19] MEDS: PIPERACILLIN/TAZOBACTAM 3.375 GM in 0.9 % SODIUM CHLORIDE Mini-bag 100 ML IVPB (02:37)
[2023-04-19 03:00] VITALS: BP 119/58; PULSE 79; RESP 18; TEMP 36.6; O2SAT 96
--- NOTE | 2023-04-19 06:57 | PC.NURSE ---
End of shift note from [id number]. Pt alert but forgetful at times. Blood sugars checked throughout the night. [place] patent and draining. Ostomy emptied q2h. Turn and repo. Pt denies pain. VSS and lungs clear.
[2023-04-19 06:58] LABS: Basophils Absolute Auto 0.01 K/uL (0.00-0.30); Basophils Percent Auto 0.1 % (0.0-3.0); Hematocrit 27.3 % (33.0-51.0); Hemoglobin* 9.2 gm/dL (12.0-16.0); Immature Granulocytes Abs Auto 0.02 K/uL (0.00-0.30); Immature Granulocytes Pct Auto 0.3 %; Lymphocytes Percent Auto 10.9 % (20-44); Mean Corpuscular HGB Conc 34 gm/dL (32-36); Mean Corpuscular Hemoglobin 30 pg (26-34); Mean Corpuscular Volume 90 fL (80-100); Monocytes Percent Auto 4.4 % (0.0-11.0); Neutrophils Percent Auto 84.3 % (42.0-72.0); Platelet Count* 222 K/uL (140-440); Red Blood Count 3.04 m/uL (4.00-5.20); White Blood Count* 6.98 K/uL (4.50-11.00)
[2023-04-19 07:00] VITALS: BP 103/60; PULSE 74; PULSE 92; RESP 18; TEMP 36.4; O2SAT 96
[2023-04-19 07:01] LABS: Slide Review Reflex No
[2023-04-19 07:03] LABS: Albumin* 2.9 g/dL (3.3-5.0)
[2023-04-19 07:04] LABS: Chloride* 105 mmol/L (96-114); Potassium* 3.2 mmol/L (3.6-5.1); Sodium* 129 mmol/L (135-149)
[2023-04-19 07:06] LABS: Bilirubin Total* 0.7 mg/dL (0.1-1.5); Carbon Dioxide* 23 mmol/L (20-32); Creatinine* 0.8 mg/dL (0.5-1.5); Est. Creatinine Clearance* 28.92; Estimated Glomerular Filt Rate 72 ml/min
[2023-04-19 07:07] LABS: Alanine Aminotransferase* 82 U/L (4-35); Alkaline Phosphatase* 165 U/L (40-150); Aspartate Amino Transferase* 62 U/L (12-35); Blood Urea Nitrogen* 16 mg/dL (7-30); Calcium* 8.3 mg/dL (8.4-10.6); Glucose* 167 mg/dL (60-115)
--- NOTE | 2023-04-19 07:30 | P.IMPN_ITS ---
Progress Note: A&P Assessment and plan (1) Elevated liver transaminase level: Problem details: -dilated CBD - s/p lap isabelle years previous. LFTs are downtrending. clinically improved. [facility] consulted and agreed with conservative management (no ERCP) -our thought is that she passed a CBD stone, improving. Status: Acute (2) Aspiration pneumonitis: Problem details: -off oxygen. will need outpatient speech/swallowing eval (unless still here) -change pip/tazo to amoxicillin -thickened diet -coaching with chin down swallowing -pt is 87 and she is hungry; we will attempt to balance risk/benefit of oral intake Status: Acute (3) Jarales's disease: Problem details: -supported with stress dose steroids, back to baseline. Status: Acute (4) Weakness: Problem details: - little reserve given fraility, long standing medical issues -this acute admission: aspiration, common bile duct stone, addisonian crisis. Status: Acute (5) Chronic hyponatremia: Problem details: -her baseline is high 120's Status: Acute (6) High output ileostomy: Problem details: managed with imodium Status: Chronic (7) Chronic pain: Status: Acute (8) Diabetic gastroparesis: Status: Chronic (9) Diabetes mellitus type 1: Status: Acute (10) Low body weight due to inadequate caloric intake: Status: Acute (11) Polypharmacy: Status: Acute (12) Adult failure to thrive: Status: Acute (13) Anxiety disorder: Status: Acute (14) Coronary artery disease: Problem details: - h/o stenting Status: Chronic Subjective Date Seen: 04/19/23 Interval history: Daily Progress Note - Hospital Medicine #: 3 CC: AMS, poor oral intake - likely passed a common duct stone, concerns for aspiration pneumonitis OVERNIGHT UPDATES FROM STAFF & MED, LAB, IMAGING UPDATES -comfortable -hungry -requesting to eat -staff veterinarian feel like she is back to baseline -gray out Afebrile overnight 119/58, 123/59 Pulse 70s to 90s Respiratory rate 16 to 18, unlabored Pulse ox 95-96 on room air Nurse note: End of shift note from [id number]. Pt alert but forgetful at times. Blood sugars checked throughout the night. Gray patent and draining. Ostomy emptied q2h. Turn and repo. Pt denies pain. VSS and lungs clear. CBC is stable Hemoglobin has dropped from 10 to 9.2 Platelets stable Sodium is historically low and is at about her baseline 129 Potassium has dropped over a 0.3 0.2 this morning No longer acidotic, bicarb is 23 Creatinine is 0.8, much improved All LFTs continue to improve Gray - d/c Ostomy high output but controlled Blood sugars: 198, 217, 211, 171 MRCP from 04/18 IMPRESSION: 1. Status post cholecystectomy. 2. Dilated extrahepatic common bile duct measuring up to 10 mm in diameter. 3. No evidence of choledocholithiasis. 2 blood cultures drawn on 04/17 are negative to date. Urine culture negative today Objective: smiling Vitals: see above Lungs: Clear. Cardiac: S1S2. Disposition/Potential discharge - Likely to return to previous living situation. Total time is 35 minutes with greater than 50% spent in counseling and coordination of care. Exam Const: Vital Signs, click to edit/add: Vital Signs - 24 hr 04/18/23 11:00 04/18/23 14:28 04/18/23 15:00 Temperature 98 F Pulse Rate 88 Pulse Rate [Left P ulse Oximeter] 83 83 Pulse Rate [Right Radial] Respiratory Rate 16 16 Blood Pressure [Ri ght Arm] 112/52 L Pulse Oximetry 98 Oxygen Delivery Me thod Room Air 04/18/23 15:00 04/18/23 19:52 04/18/23 19:55 Temperature 97.9 F 97.5 F L Pulse Rate 87 Pulse Rate [Left P ulse Oximeter] 79 87 Pulse Rate [Right Radial] Respiratory Rate 16 16 Blood Pressure [Ri ght Arm] 117/54 L 117/57 L Pulse Oximetry 97 98 Oxygen Delivery Me thod Room Air Room Air 04/18/23 23:00 04/19/23 03:00 Temperature 98.0 F 97.9 F Pulse Rate Pulse Rate [Left P ulse Oximeter] 79 Pulse Rate [Right Radial] 92 Respiratory Rate 16 18 Blood Pressure [Ri ght Arm] 123/59 L 119/58 L Pulse Oximetry 95 96 Oxygen Delivery Me thod Room Air Room Air Labs Labs: Laboratory Results - last 24 hr 04/18/23 04/19/23 09:52 05:57 WBC 6.98 RBC 3.04 L Hgb 9.2 L Hct 27.3 L MCV 90 MCH 30 MCHC 34 RDW Coeff of Sharmaine 14.0 Plt Count 222 Neut % (Auto) 84.3 H Lymph % (Auto) 10.9 L [place] % (Auto) 4.4 Eos % (Auto) 0.0 Baso % (Auto) 0.1 Neut # (Auto) 5.90 Lymph # (Auto) 0.80 L [place] # (Auto) 0.30 Eos # (Auto) 0.00 Baso # (Auto) 0.01 Sodium 129 L Potassium 3.2 L Chloride 105 Carbon Dioxide 23 BUN 16 Creatinine 0.8 Estimated Creat Clear 28.92 Estimated GFR 72 Glucose 167 H Calcium 8.3 L Total Bilirubin 0.7 Direct Bilirubin 0.0 AST 62 H ALT 82 H Alkaline Phosphatase 165 H Total Protein 5.0 L Albumin 2.9 L Lab Acknowledgement Test Added
[2023-04-19 07:58] LABS: C Reactive Protein* 2.3 mg/dL (0.5-1.0)
[2023-04-19 07:59] LABS: Hemoglobin A1C* 9.15 % (0-5.6)
[2023-04-19 08:14] LABS: NT Pro B Type NatriureticPept* 1260 pg/mL
[2023-04-19] MEDS: SODIUM CHLORIDE 0.9 % (FLUSH) 10 ML SYRINGE 5 ML IVF ×2 (10:25→21:40)
[2023-04-19] MEDS: HEPARIN 5,000 UNIT/0.5 ML INJ 5000 UNIT SUBCUT ×2 (10:26→21:23)
[2023-04-19 11:00] VITALS: BP 121/63; PULSE 89; RESP 18; TEMP 36.6; O2SAT 96
[2023-04-19] MEDS: LOPERAMIDE HCL 2 MG CAPSULE 4 MG PO ×3 (14:04→21:24)
[2023-04-19] MEDS: SODIUM CHLORIDE 1 GM TABLET PO ×2 (14:04→17:53)
[2023-04-19] MEDS: SODIUM BICARBONATE 650 MG TABLET PO ×3 (14:04→21:24)
[2023-04-19] MEDS: AMOXICILLIN 250 MG CAPSULE 500 MG PO ×2 (14:05→21:24)
[2023-04-19 15:00] VITALS: BP 121/58; PULSE 82; PULSE 89; RESP 18; TEMP 36.1; O2SAT 99
[2023-04-19 19:00] VITALS: BP 108/51; PULSE 91; RESP 18; TEMP 36.3; O2SAT 98
[2023-04-19] MEDS: SIMETHICONE 80 MG TAB.CHEW PO (21:24)
[2023-04-19] MEDS: HYDROCORTISONE 10 MG TABLET 7.5 MG PO (21:26)
[2023-04-19 22:39] VITALS: BP 120/61; PULSE 81; RESP 18; TEMP 36.4; O2SAT 97
[2023-04-20 03:00] VITALS: BP 120/70; PULSE 77; RESP 18; TEMP 36.3; O2SAT 96
[2023-04-20 06:34] LABS: Hematocrit 31.3 % (33.0-51.0); Hemoglobin* 10.4 gm/dL (12.0-16.0); Mean Corpuscular HGB Conc 33 gm/dL (32-36); Mean Corpuscular Hemoglobin 30 pg (26-34); Mean Corpuscular Volume 89 fL (80-100); Platelet Count* 245 K/uL (140-440); White Blood Count* 6.97 K/uL (4.50-11.00)
--- NOTE | 2023-04-20 06:45 | PC.NURSE ---
Shift note: Pt appears calm, alert and oriented today. Denied any pain, SOB and cough. Pt has been in bed throughout the shift. Able to assist in T/R Q2h. Ileostomy continuous to drain watery stool with food particles. Ostomy bag emptied Q2h. Vitally stable. Bp has been stable.
[2023-04-20] MEDS: LEVOTHYROXINE 75 MCG TABLET PO (06:55)
[2023-04-20 07:00] VITALS: PULSE 70; RESP 16
[2023-04-20 07:18] LABS: INR 1.04 (0.91-1.10); Prothrombin Time 14.2 Seconds
[2023-04-20 07:21] LABS: Chloride* 105 mmol/L (96-114)
[2023-04-20 07:22] LABS: Albumin* 3.4 g/dL (3.3-5.0); Potassium* 3.1 mmol/L (3.6-5.1); Sodium* 132 mmol/L (135-149)
[2023-04-20 07:23] LABS: Slide Review Reflex No
[2023-04-20 07:24] LABS: Alkaline Phosphatase* 176 U/L (40-150); Aspartate Amino Transferase* 97 U/L (12-35); Bilirubin Total* 0.5 mg/dL (0.1-1.5); Carbon Dioxide* 25 mmol/L (20-32); Creatinine* 0.7 mg/dL (0.5-1.5); Est. Creatinine Clearance* 28.92; Estimated Glomerular Filt Rate 85 ml/min; Total Protein* 5.7 g/dL (6.0-8.3)
[2023-04-20 07:25] LABS: Alanine Aminotransferase* 95 U/L (4-35); Blood Urea Nitrogen* 19 mg/dL (7-30); Calcium* 8.8 mg/dL (8.4-10.6)
[2023-04-20] MEDS: DEXTROSE 50 % SYRINGE IVP (07:30)
[2023-04-20 07:35] LABS: Troponin I* 0.02 ng/mL (0.01-0.04)
[2023-04-20 07:52] LABS: Glucose* 43 mg/dL (60-115)
[2023-04-20 08:08] VITALS: BP 128/59; PULSE 70; RESP 16; TEMP 36.4; O2SAT 99
--- NOTE | 2023-04-20 08:21 | CRLHL7_ITS ---
For Patients: As a result of the Century Cures Act, medical imaging exams and procedure reports are released immediately into your electronic medical record. You may view this report before your referring provider. If you have questions, please contact your health care provider. INDICATION: Follow up aspiration pneumonia. TECHNIQUE: Two-view chest. COMPARISON: AP chest April 17, 2023. Correlation is made with a CT of the abdomen and pelvis April 17, 2023 which included the lung bases. FINDINGS: Both lungs are expanded and clear. No basilar infiltrates identified. Overall heart size is normal. Coronary artery calcifications and/or coronary artery stents. Thoracic kyphosis with compression fractures of lower thoracic/upper lumbar spine. IMPRESSION: No acute cardiopulmonary process identified. No basilar infiltrates appreciated on today`s chest x-ray. Dictated by Darrell Reardon MD @ 04/20/2023 9:47:03 AM (Electronically Signed)
[2023-04-20] MEDS: SODIUM CHLORIDE 1 GM TABLET PO ×2 (08:25→12:29)
[2023-04-20] MEDS: HEPARIN 5,000 UNIT/0.5 ML INJ 5000 UNIT SUBCUT (08:25)
[2023-04-20] MEDS: HYDROCORTISONE 10 MG TABLET 15 MG PO (08:26)
[2023-04-20] MEDS: POTASSIUM BICARB 25 MEQ EFFERVESCENT TAB 50 MEQ PO (08:35)
[2023-04-20] MEDS: LOPERAMIDE HCL 2 MG CAPSULE 4 MG PO ×2 (09:45→12:29)
[2023-04-20] MEDS: SIMETHICONE 80 MG TAB.CHEW PO (09:45)
[2023-04-20] MEDS: SERTRALINE 50 MG TABLET PO (09:45)
[2023-04-20] MEDS: SODIUM BICARBONATE 650 MG TABLET PO ×2 (09:46→13:02)
[2023-04-20] MEDS: AMOXICILLIN 250 MG CAPSULE 500 MG PO ×2 (09:46→13:56)
[2023-04-20] MEDS: SODIUM CHLORIDE 0.9 % (FLUSH) 10 ML SYRINGE 5 ML IVF (09:47)
[2023-04-20 11:30] VITALS: BP 117/57; PULSE 78; RESP 22; TEMP 37.1; O2SAT 96
--- NOTE | 2023-04-20 13:23 | REH.OT ---
Attempted treatment x2 today, pt refused d/t being too tired and fatigued. Anticipating d/c from hospital today back to SNF once medically cleared.
--- NOTE | 2023-04-20 14:17 | PC.NURSE ---
Discharge: Patient pleasant and cooperative. Patient vitally stable, lungs clear, BS WNL, IV removed and intact. First morning blood sugar was 30, D50 was given by another RN, after 15 minutes blood sugar was 167. Patient's blood sugar check later in the day were 135 and 204. New ostomy bag was applied today as it was leaking. Patient has a large amount of ostomy output that is liquid. Patient denies pain. Patient tolerating regular diet, eating independently. Patient signed discharge form. Patient left the floor by wheelchair at 1404 for NRC.
--- NOTE | 2023-04-20 16:18 | P.DS_ITS ---
DS: Providers Provider Date Seen: 04/20/23 Date of admission: 04/17/23 13:25 Primary care physician: Onur Schreiber MD Admitting Clinician: Erick Rosa MD Consults: 04/17/23 19:54 Consult to Occupational Therapy [CONS] Routine Comment: Reason(s) for OT Consult:: Difficulty Managing ADLs Any Restrictions?:: No Restrictions Consult to Physical Therapy [CONS] Routine Comment: Reason(s) for PT Consult:: Evaluate Ambulation Any Restrictions?:: No Restrictions 04/18/23 09:02 Consult to Speech Therapy [CONS] Routine Comment: Reason(s) for Speech Consult:: Speech/Swallowing Eval Comment: aspiration pna vs pneumonitis Attending Physician on discharge: [facility]: 04/20/23 DS: Diagnosis Discharge Diagnosis (1) Aspiration pneumonitis: Status: Acute Problem details: -off oxygen. Consider outpatient speech evaluation. -7 day course of amoxicillin 500 mg t.i.d. -thickened diet, trial as an inpatient went well -coaching with chin down swallowing, trials an inpatient went well -pt is 87 and she is hungry; her daughter and I discussed risks and benefits, clearly the benefits outweigh the risks. (2) Elevated liver transaminase level: Status: Acute Problem details: -dilated CBD - s/p lap isabelle years previous. LFTs are downtrending. clinically improved. [facility] consulted and agreed with conservative management (no ERCP) -our thought is that she passed a CBD stone, improving. -Outpatient HIDA scan or referral if symptoms reoccur her or lab surveillance indicates this need (3) Chronic hyponatremia: Status: Acute Problem details: -her baseline is high 120's (4) Primary adrenocortical insufficiency: Status: Acute Problem details: -receive stress dose steroids, did well back to baseline (5) Caldwell's disease: Status: Acute Problem details: -supported with stress dose steroids, back to baseline. (6) Weakness: Status: Acute Problem details: - little reserve given fraility, long standing medical issues -this acute admission: aspiration (from dental procedure?), common bile duct stone (presumed), addisonian crisis. 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 Consider outpatient HIDA scan or referral based on symptoms, lab surveillance One week of oral amoxicillin for aspiration pneumonitis. I chose not to use Augmentin secondary to her high output ostomy issues and sensitivities to medications. REFERRALS WHILE ADMITTED: PT and OT REFERRALS AFTER DISCHARGE: None BRIEF HOSPITAL COURSE: Becca is an 87-year-old who is well known to our service. She lives at the [facility] long-term care. She was noted to have a change in mental status, poor p.o. intake weakness. Ultimately she was diagnosed with a an aspiration pneumonitis, elevated LFTs that were likely from passage of a common bile duct stone and an addisonian crisis. We presume she aspirated during a dental procedure the week prior to admission. We treated this with IV antibiotics. She rallied quite well. We saw no evidence of aspiration while she was in inpatient. We did thicken her fluids and kept her food bite sized and moist. She had no problems with medications. We did motorcoach operator her on talking her chin for swallowing. She had an episode of hypoglycemia early in the morning. We made the suggestion and followed through on the change of putting her basal insulin dosing in the morning. She did quite well and was ready for discharge on April 20. SUBSTANTIVE NOTATIONS ON IMAGING, LAB, MICROBIOLOGY/PATHOLOGY STUDIES: CT Abd/Pelvis (where the lung findings are noted) Increased densities in both lower lobes suggesting aspiration pneumonitis superimposed upon chronic scarring. Increased prominence of the intrahepatic and extrahepatic biliary tree. No intrahepatic mass or ascites. No hydronephrosis. Right lower quadrant ostomy without bowel obstruction or inflammatory changes regarding the bowel. 04/20/2023, 2V No acute cardiopulmonary process identified. No basilar infiltrates appreciated on today`s chest x-ray. MRCP 1. Status post cholecystectomy. 2. Dilated extrahepatic common bile duct measuring up to 10 mm in diameter. 3. No evidence of choledocholithiasis. DISCHARGE MEDICATIONS: See Reconciled list - SIGNIFICANT CHANGES: amoxil 500mg TID for a week moved the basal insulin to the am REVIEW OF SYSTEMS No new chest pain or dyspnea Pain controlled No voiding difficulties Tolerating diet challenge PHYSICAL EXAM: CONSTITUTIONAL: baseline: smiling, thankful. NAD. VITAL SIGNS: see record. HEENT: Normocephalic, atraumatic. PERRL, EOMI, conjunctivae pink, no scleral icterus. Ears and nose externally normal. Pharynx normal. NECK: No JVD. No carotid bruit, no thyromegaly, no adenopathy. CHEST: Clear to auscultation bilaterally. HEART: S1 and S2 normal. Edema ABDOMEN: Soft, nontender. Normal bowel sounds. MUSCULOSKELETAL: No gross joint deformity or swelling. NEURO: Cranial nerves intact. Grossly intact. No asymmetric findings. SKIN: No rashes, petechiae, concerning changes PSYCHIATRIC: Mood euthymic. DISPOSITION: [facility] - [facility] Time spent on discharge 37 minutes. Time Spent with Patient Time attestation: Total time spent providing and/or coordinating discharge services: Exam Const: Vital Signs, click to edit/add: Vital Signs - 24 hr 04/19/23 19:00 04/19/23 22:39 04/19/23 22:39 Temperature 97.3 F L 97.5 F L Pulse Rate [Left P ulse Oximeter] Pulse Rate [Right Radial] 91 81 81 Respiratory Rate 18 18 18 Blood Pressure [Ri ght Arm] 108/51 L 120/61 Pulse Oximetry 98 97 Oxygen Delivery Me thod Room Air Room Air 04/20/23 03:00 04/20/23 07:00 04/20/23 08:08 Temperature 97.4 F L 97.6 F Pulse Rate [Left P ulse Oximeter] Pulse Rate [Right Radial] 77 70 70 Respiratory Rate 18 16 16 Blood Pressure [Ri ght Arm] 120/70 128/59 L Pulse Oximetry 96 99 Oxygen Delivery Me thod Room Air Nasal Cannula 04/20/23 11:30 Temperature 98.8 F Pulse Rate [Left P ulse Oximeter] 78 Pulse Rate [Right Radial] Respiratory Rate 22 Blood Pressure [Ri ght Arm] 117/57 L Pulse Oximetry 96 Oxygen Delivery Me thod Room Air DS: Data Data Completed and Pending Completed studies during hospitalization: Procedures Drainage of Stomach with Drainage Device, Via Natural or Artificial Opening (05/02/22) Insertion of Infusion Device into Left Internal Jugular Vein, Percutaneous Approach (05/02/22) Labs on day of discharge: Labs from last 24 hours 04/20/23 05:55 WBC 6.97 RBC 3.50 L Hgb 10.4 L Hct 31.3 L MCV 89 MCH 30 MCHC 33 Plt Count 245 INR 1.04 Sodium 132 L Potassium 3.1 L Chloride 105 Carbon Dioxide 25 BUN 19 Creatinine 0.7 Estimated Creat Clear 28.92 Estimated GFR 85 Glucose 43 L* Calcium 8.8 Total Bilirubin 0.5 AST 97 H ALT 95 H Alkaline Phosphatase 176 H Troponin I 0.02 Total Protein 5.7 L Albumin 3.4 Preliminary micro results at discharge 04/17/23 09:44 Blood Culture - Preliminary Blood NO GROWTH AFTER 72 HOURS 04/17/23 09:53 Blood Culture - Preliminary Blood NO GROWTH AFTER 72 HOURS Discharge Plan Discharge Disposition: Xfer [facility] Date of Admission: 04/17/23 13:25 Attending Provider on Discharge: Leigh Ann Reaves Primary Care Provider: Onur Schreiber Discharge Medications: New amoxicillin 500 mg tablet 500 mg PO TID Qty: 21 0RF Continued acetaminophen 500 mg capsule 1,000 mg PO QID PRN ondansetron HCl 4 mg tablet 4 mg PO Q6H PRN metoprolol tartrate 25 mg tablet 12.5 mg PO BID simethicone 80 mg tablet,chewable 80 mg PO BID Rx Instructions: PLUS PRN psyllium Powder 1 tbsp PO TID Rx Instructions: mix into at least 8 oz of water or juice before administering loperamide 2 mg Capsule 4 mg PO QID Rx Instructions: hold for formed thick stool in ostomy sodium chloride 1,000 mg Tablet,Soluble 1,000 mg PO TIDWM 30 Days Qty: 90 0RF hydrocortisone 5 mg tablet 7.5 - 15 mg PO BID Rx Instructions: 15 MG IN AM, 7.5 MG IN PM levothyroxine 75 mcg tablet 75 mcg PO DAILY morphine 15 mg tablet extended release 15 mg PO TID estradiol 0.01 % (0.1 mg/gram) cream 1 appful VAGINAL MOTH@09 Rx Instructions: MON, insulin lispro [Humalog KwikPen Insulin] 100 unit/mL insulin pen 5 unit SUBCUT TIDWM Patient Comments: Rx Instructions: 5 UNITS WITH MEALS PLUS: SLIDING SCALE OF: BG UNITS 180-219 2 220-259 3 260-299 4 300-339 5 [phone] 6 [phone] 7 400-999 CALL coenzyme Q10 100 mg capsule 100 mg PO HS olopatadine 0.2 % drops 1 drp ophthalmic (eye) DAILY cholecalciferol (vitamin D3) 50 mcg (2,000 unit) tablet 4,000 unit PO HS Women's One Daily 18 mg iron-400 mcg-500 mg Ca tablet 1 tab PO DAILY vitamin B complex [Vitamins B Complex] Capsule 1 cap PO DAILY oxycodone 5 mg tablet 5 mg PO Q6H PRN Probiotic 3 billion cell capsule 3,000 mmu cells PO DAILY Rx Instructions: administer with a meal sertraline 50 mg tablet 50 mg PO DAILY Biotene Moisturizing Mouth [place],Non-Aerosol 1 applic mucous membrane Q1H PRN glucose [Dex4 Glucose] 4 gram tablet,chewable 4 g PO Q15M PRN furosemide 20 mg tablet 10 mg PO DAILY fludrocortisone 0.1 mg tablet 0.1 mg PO DAILY sodium bicarbonate 650 mg Tablet 650 mg PO TIDWM aspirin 81 mg tablet,chewable 81 mg PO DAILY@1200 Changed insulin glargine [Lantus Solostar U-100 Insulin] 100 unit/mL (3 mL) insulin pen 15 unit SUBCUT QAM Qty: 15 0RF Rx Instructions: this is a change in timing of dosing - not dose. 15 units in the morning instead of giving it at night. Discharge Orders: Discharge Order (Routine); Ordered 04/20/23 Ordered By: Leigh Ann Reaves Additional Instructions: 1. The team recommends not further dental exams/cleanings/procedures unless discussed with daughter and/or Dr. Schreiber. I suspect she aspirated after her procedure last week. 2. We thickened her feeds initially, but I didn't see coughing or trouble with medications. I don't think she is regularly aspirating. I did prescribe amoxicillin for a week for aspiration pneumonitis. 3. Her blood sugars are labile. I'd recommending we give the long acting insulin in the morning instead of at night. Activity Level: Activity as Tolerated Discharge Diet: Regular Follow Up Appointments: Onur Schreiber MD [Primary Care Provider] - 04/28/23 Admit to: SNF Discharge Potential: Poor Length of Stay: >90 days Can use facility standing orders?: Yes Code Status: DNR/DNI Rehab Potential: Poor Orders are good >30 days: Yes
== END 2023-04-20 14:04 | DRG 137 ==
LOC: ED 12:31 → MEDSURG 13:13
PROVIDERS: Family Medicine; Admitting Provider Hospitalist; Emergency Provider Family Medicine; PCP Family Medicine; Visit Provider Hospitalist
DX: J69.0 Pneumonitis due to inhalation of food and vomit (principal); I12.9 Hypertensive chronic kidney disease with stage 1 through stage 4 chronic kidney disease, or unspecified chronic kidney disease; E10.22 Type 1 diabetes mellitus with diabetic chronic kidney disease; N18.31 Chronic kidney disease, stage 3a; E10.43 Type 1 diabetes mellitus with diabetic autonomic (poly)neuropathy; K31.84 Gastroparesis; Z79.4 Long term (current) use of insulin; I95.9 Hypotension, unspecified; E27.1 Primary adrenocortical insufficiency; Z93.2 Ileostomy status; E87.1 Hypo-osmolality and hyponatremia; F03.90 Unspecified dementia, unspecified severity, without behavioral disturbance, psychotic disturbance, mood disturbance, and anxiety; R74.01 Elevation of levels of liver transaminase levels; G89.29 Other chronic pain; F41.9 Anxiety disorder, unspecified; J45.909 Unspecified asthma, uncomplicated; K21.9 Gastro-esophageal reflux disease without esophagitis; I25.10 Atherosclerotic heart disease of native coronary artery without angina pectoris; E03.9 Hypothyroidism, unspecified; E78.5 Hyperlipidemia, unspecified; M81.0 Age-related osteoporosis without current pathological fracture; R62.7 Adult failure to thrive; Z68.1 Body mass index [BMI] 19.9 or less, adult
CPT/HCPCS: 36415; 51701; 71045; 71046; 74177; 74181; 76705; 80048; 80053; 80076; 81001; 82962; 83036; 83605; 83880; 84145; 84484; 85025; 85027; 85610; 86140; 87040; 87086; 87631; 93005; 97110; 97116; 97162; 97165; 97535; 99285; A9270; J1335; J1644; J1720; J2543; J7030; J7042; J7070; J7120; Q9967

== ENCOUNTER 2023-04-20 14:07 | Outpatient (CLI) | payer BC, SELFPAY | END 2023-04-20 14:08 | disposition home or self-care (01) | LOC: AMB 04-23 13:23 | PROVIDERS: PCP Family Medicine; Visit Provider Family Medicine | DX: R68.89 Other general symptoms and signs (principal) | CPT/HCPCS: A0425; A0428 ==

== ENCOUNTER 2023-05-20 11:37 | Outpatient (REF) | payer BC, SELFPAY ==
[2023-05-20 13:27] LABS: Chloride* 97 mmol/L (96-114)
[2023-05-20 13:30] LABS: Carbon Dioxide* 17 mmol/L (20-32); Creatinine* 1.1 mg/dL (0.5-1.5); Estimated Glomerular Filt Rate 49 ml/min
[2023-05-20 13:31] LABS: Blood Urea Nitrogen* 34 mg/dL (7-30); Calcium* 9.5 mg/dL (8.4-10.6); Glucose* 69 mg/dL (60-115)
[2023-05-20 13:45] LABS: Potassium* 6.4 mmol/L (3.6-5.1); Sodium* 124 mmol/L (135-149)
== END 2023-05-20 11:38 | disposition home or self-care (01) ==
LOC: NPINS 11:37
PROVIDERS: PCP Family Medicine; Visit Provider Nurse Practitioner Gerontology
DX: E87.1 Hypo-osmolality and hyponatremia (principal)
CPT/HCPCS: 80048

== ENCOUNTER 2023-06-03 14:36 | Outpatient (REF) | payer BC, SELFPAY ==
[2023-06-03 15:59] LABS: Chloride* 95 mmol/L (96-114); Potassium* 5.1 mmol/L (3.6-5.1); Sodium* 128 mmol/L (135-149)
[2023-06-03 16:02] LABS: Blood Urea Nitrogen* 31 mg/dL (7-30); Carbon Dioxide* 26 mmol/L (20-32); Creatinine* 1.1 mg/dL (0.5-1.5); Estimated Glomerular Filt Rate 49 ml/min
[2023-06-03 16:03] LABS: Glucose* 224 mg/dL (60-115)
== END 2023-06-03 14:37 | disposition home or self-care (01) ==
LOC: NPINS 14:36
PROVIDERS: PCP Family Medicine; Visit Provider Nurse Practitioner Gerontology
DX: E87.1 Hypo-osmolality and hyponatremia (principal)
CPT/HCPCS: 80048

== ENCOUNTER 2023-06-10 07:55 | Outpatient (REF) | payer BC, SELFPAY ==
[2023-06-10 08:33] LABS: Chloride* 96 mmol/L (96-114); Potassium* 5.4 mmol/L (3.6-5.1); Sodium* 127 mmol/L (135-149)
[2023-06-10 08:36] LABS: Blood Urea Nitrogen* 36 mg/dL (7-30); Carbon Dioxide* 23 mmol/L (20-32); Creatinine* 1.1 mg/dL (0.5-1.5); Estimated Glomerular Filt Rate 49 ml/min; Glucose* 94 mg/dL (60-115)
[2023-06-10 08:37] LABS: Calcium* 9.3 mg/dL (8.4-10.6)
== END 2023-06-10 07:56 | disposition home or self-care (01) ==
LOC: NPINS 07:55
PROVIDERS: PCP Family Medicine; Visit Provider Family Medicine
DX: E87.1 Hypo-osmolality and hyponatremia (principal)
CPT/HCPCS: 80048

== ENCOUNTER 2023-06-17 08:09 | Outpatient (REF) | payer BC, SELFPAY ==
[2023-06-17 09:07] LABS: Chloride* 94 mmol/L (96-114); Sodium* 125 mmol/L (135-149)
[2023-06-17 09:10] LABS: Blood Urea Nitrogen* 39 mg/dL (7-30); Carbon Dioxide* 20 mmol/L (20-32); Creatinine* 1.1 mg/dL (0.5-1.5); Estimated Glomerular Filt Rate 49 ml/min
[2023-06-17 09:11] LABS: Calcium* 9.6 mg/dL (8.4-10.6); Glucose* 157 mg/dL (60-115)
[2023-06-17 09:29] LABS: Potassium* 6.3 mmol/L (3.6-5.1)
== END 2023-06-17 08:10 | disposition home or self-care (01) ==
LOC: NPINS 08:09
PROVIDERS: PCP Family Medicine; Visit Provider Family Medicine
DX: E87.1 Hypo-osmolality and hyponatremia (principal)
CPT/HCPCS: 80048

== ENCOUNTER 2023-06-24 09:57 | Outpatient (REF) | payer BC, SELFPAY ==
[2023-06-24 11:13] LABS: Chloride* 96 mmol/L (96-114); Sodium* 126 mmol/L (135-149)
[2023-06-24 11:16] LABS: Anion Gap 6 mEq/L (7-15); Blood Urea Nitrogen* 25 mg/dL (7-30); Carbon Dioxide* 24 mmol/L (20-32); Creatinine* 1.1 mg/dL (0.5-1.5); Estimated Glomerular Filt Rate 49 ml/min; Glucose* 271 mg/dL (60-115)
[2023-06-24 11:17] LABS: Calcium* 9.4 mg/dL (8.4-10.6)
[2023-06-24 11:35] LABS: Potassium* 6.5 mmol/L (3.6-5.1)
== END 2023-06-24 09:58 | disposition home or self-care (01) ==
LOC: NPINS 09:57
PROVIDERS: PCP Family Medicine; Visit Provider Nurse Practitioner Gerontology
DX: E87.1 Hypo-osmolality and hyponatremia (principal)
CPT/HCPCS: 80048

== ENCOUNTER 2023-07-22 14:05 | Outpatient (REF) | payer BC, SELFPAY ==
[2023-07-22 15:32] LABS: Chloride* 98 mmol/L (96-114); Potassium* 5.2 mmol/L (3.6-5.1); Sodium* 130 mmol/L (135-149)
[2023-07-22 15:35] LABS: Anion Gap 9 mEq/L (7-15); Blood Urea Nitrogen* 28 mg/dL (7-30); Calcium* 8.9 mg/dL (8.4-10.6); Carbon Dioxide* 23 mmol/L (20-32); Creatinine* 1.2 mg/dL (0.5-1.5); Estimated Glomerular Filt Rate 44 ml/min
[2023-07-22 15:54] LABS: Glucose* 378 mg/dL (60-115)
== END 2023-07-22 14:06 | disposition home or self-care (01) ==
LOC: NPINS 14:05
PROVIDERS: PCP Family Medicine; Visit Provider Family Medicine
DX: E11.9 Type 2 diabetes mellitus without complications (principal); E87.1 Hypo-osmolality and hyponatremia
CPT/HCPCS: 80048; 83036

== ENCOUNTER 2023-07-29 10:36 | Outpatient (REF) | payer BC, SELFPAY ==
[2023-07-29 11:55] LABS: Chloride* 97 mmol/L (96-114); Sodium* 129 mmol/L (135-149)
[2023-07-29 11:57] LABS: Estimated Glomerular Filt Rate 55 ml/min
[2023-07-29 11:58] LABS: Anion Gap 7 mEq/L (7-15); Blood Urea Nitrogen* 36 mg/dL (7-30); Calcium* 9.7 mg/dL (8.4-10.6); Carbon Dioxide* 25 mmol/L (20-32); Glucose* 300 mg/dL (60-115)
[2023-07-29 12:04] LABS: Potassium* 6.1 mmol/L (3.6-5.1)
== END 2023-07-29 10:37 | disposition home or self-care (01) ==
LOC: NPINS 10:36
PROVIDERS: PCP Family Medicine; Visit Provider Family Medicine
DX: E87.1 Hypo-osmolality and hyponatremia (principal)
CPT/HCPCS: 80048

== ENCOUNTER 2023-08-30 16:44 | Outpatient (CLI) | payer BC, SELFPAY | END 2023-08-30 16:45 | disposition home or self-care (01) | LOC: AMB 09-02 22:01 | PROVIDERS: PCP Family Medicine; Visit Provider Emergency Medicine | DX: R11.0 Nausea (principal); R25.2 Cramp and spasm | CPT/HCPCS: A0425; A0427 ==

== ENCOUNTER 2023-08-30 17:09 | Emergency (ER) | payer BC, SELFPAY ==
[2023-08-30] VITALS (52 sets, daily range): BP systolic 67–134; BP diastolic 37–65; PULSE 51–73; RESP 16; TEMP 36.4; O2SAT 76–99; BMI 18.3
--- NOTE | 2023-08-30 17:23 | CRLHL7_ITS ---
For Patients: As a result of the Century Cures Act, medical imaging exams and procedure reports are released immediately into your electronic medical record. You may view this report before your referring provider. If you have questions, please contact your health care provider. INDICATION: Nausea, vomiting, abdominal pain COMPARISON: 04/17/2023 TECHNIQUE: CT of the abdomen and pelvis after the administration of intravenous contrast. Multiplanar axial, coronal, and sagittal reformats were reconstructed. Contrast: 49 mL Isovue 370 intravenously. Oral contrast was not administered. FINDINGS: Lung bases: Mild bibasilar reticulation. Liver: Normal. No masses. Normal vasculature. Gallbladder and biliary tree: Cholecystectomy. Mildly dilated extrahepatic bile duct is probably due to reservoir effect. No filling defects seen. Pancreas: Normal. Spleen: Normal. Normal size. Adrenal glands: Normal. No nodules. Kidneys and bladder: Normal size and position. No cyst or mass. No calculi. No urinary tract dilation. The urinary bladder is normal. GI: Mucosal hyperenhancement in the stomach, duodenum, and proximal jejunum. No bowel wall thickening. The distal small bowel is normal. Right lower quadrant ileostomy is unremarkable. The colon is normal. The appendix is not discretely seen. There is a moderate stool burden. There are a few sigmoid diverticuli. Vessels: Aorta and major branches, including the mesenteric vessels: Patent. Normal caliber. Moderate atherosclerotic plaques. IVC and tributaries: Normal. Mesenteric and portal veins: Normal. Peritoneum: No free fluid. Lymph nodes: No adenopathy. Pelvis: Pelvic floor relaxation. Fluid in the proximal vagina.. Bones: Vertebral body compression fractures at every included level in the thoracic and lumbar spine. No focal destructive bone lesions. Very low bone mineral density. Left inferior pubic ramus fracture deformities, healed. Multilevel disc and facet degenerative change. IMPRESSION: Gastritis and enteritis, appears infectious or inflammatory. Please note that all CT scans at this facility use dose modulation, iterative reconstruction, and/or weight-based dosing when appropriate to reduce radiation dose to as low as reasonably achievable. Dictated by Kelsy Lopez MD @ 08/30/2023 6:48:50 PM (Electronically Signed)
[2023-08-30 17:39] LABS: Basophils Percent Auto 0.3 % (0.0-3.0); Eosinophils Percent Auto 2.3 % (0.0-7.0); Hematocrit 47.8 % (33.0-51.0); Hemoglobin* 15.7 gm/dL (12.0-16.0); Immature Granulocytes Pct Auto 0.1 %; Lymphocytes Percent Auto 40.2 % (20-44); Mean Corpuscular HGB Conc 33 gm/dL (32-36); Mean Corpuscular Hemoglobin 28 pg (26-34); Mean Corpuscular Volume 86 fL (80-100); Monocytes Percent Auto 8.5 % (0.0-11.0); Neutrophils Percent Auto 48.6 % (42.0-72.0); Platelet Count* 310 K/uL (140-440); RDW Coefficient of Variation % 13.1 % (11.5-15.5); Red Blood Count 5.55 m/uL (4.00-5.20); White Blood Count* 11.53 K/uL (4.50-11.00)
[2023-08-30 17:41] LABS: Lactate* 1.9 mmol/L (0.5-1.9)
[2023-08-30 17:42] LABS: HCO3 VBG 21 mmol/L (21-28); PCO2 VBG 51 mmHG (40-50); PO2 VBG 23.7 mmHG (25-47)
--- NOTE | 2023-08-30 17:44 | ED.GENADULT ---
HPI - General Adult General Date Seen: 08/30/23 Chief complaint: Nausea/Vomiting Stated complaint: Fluctuating heartrate Time Seen by Provider: 08/30/23 17:14 History of Present Illness HPI narrative: Shira Stauffer is a 87 year old female with complicated past medical history including insulin-dependent diabetes, hx of chronic kidney disease, [place]'s disease (possibly from steroids), history of pelvic fractures, hypertension, mild dementia, , hyponatremia, high output ileostomy, previous cholecystectomy,?presenting from [facility] by EMS for evaluation of nausea and vomiting. History is somewhat limited because patient is not really able to answer many questions. From what I can gather she says she has been healthy and well lately. No recent illnesses, fever, cough, abdominal pain, diarrhea or any known recent medication changes or problems. Beginning 2 days ago she has been very nauseous. She says she has had multiple (cannot count how many) episodes of vomiting. They have apparently been watery and sometimes yellow and mucus. Nothing bloody or green. She does not know if she has been having diarrhea or not but it sounds like she is having watery output from her ostomy. No blood in the ostomy bag. No fever. She is not sure if she is having abdominal pain or not. She was brought to the ER today by EMS from the facility where she lives. She is hypotensive at 85/64 when she arrives. Patient was hospitalized in April, from discharge summary, Becca is an 87-year-old who is well known to our service. She lives at the [facility] long-term care. She was noted to have a change in mental status, poor p.o. intake weakness. Ultimately she was diagnosed with a an aspiration pneumonitis, elevated LFTs that were likely from passage of a common bile duct stone and an addisonian crisis. We presume she aspirated during a dental procedure the week prior to admission. We treated this with IV antibiotics. She rallied quite well. We saw no evidence of aspiration while she was in inpatient. We did thicken her fluids and kept her food bite sized and moist. She had no problems with medications. We did head boys tennis coach her on talking her chin for swallowing. She had an episode of hypoglycemia early in the morning. We made the suggestion and followed through on the change of putting her basal insulin dosing in the morning. She did quite well and was ready for discharge on April 20. Related Data Home Medications Medication Instructions Recorded Confirmed cholecalciferol (vitamin D3) 50 4,000 unit PO HS 05/02/22 04/17/23 mcg (2,000 unit) tablet coenzyme Q10 100 mg capsule 100 mg PO HS 05/02/22 04/17/23 estradiol 0.01% (0.1 mg/gram) 1 appful vaginal MOTH@05/02/22 04/17/23 vaginal cream hydrocortisone 5 mg tablet 7.5 - 15 mg PO BID 05/02/22 04/17/23 insulin lispro 100 unit/mL 5 unit subcut TIDWM 05/02/22 04/17/23 subcutaneous pen (Humalog KwikPen (U-100) Insulin) lactobacillus combination no.4 3 3,000 mmu cells PO DAILY 05/02/22 04/17/23 billion cell capsule (Probiotic) levothyroxine 75 mcg tablet 75 mcg PO DAILY 05/02/22 04/17/23 morphine 15 mg tablet,extended 15 mg PO TID 05/02/22 04/17/23 release multivit-iron 18 mg-folic acid 400 1 tab PO DAILY 05/02/22 04/17/23 mcg-calcium 500 mg-minerals tablet (Women's One Daily) olopatadine 0.2 % eye drops 1 drp ophthalmic (eye) DAILY 05/02/22 04/17/23 oxycodone 5 mg tablet 5 mg PO Q6H PRN 05/02/22 04/17/23 vitamin B complex (Vitamins B 1 cap PO DAILY 05/02/22 04/17/23 Complex capsule) acetaminophen 500 mg capsule 1,000 mg PO QID PRN 05/28/22 03/27/23 metoprolol tartrate 25 mg tablet 12.5 mg PO BID 05/28/22 04/17/23 ondansetron HCl 4 mg tablet 4 mg PO Q6H PRN 05/28/22 04/17/23 simethicone 80 mg chewable tablet 80 mg PO BID 05/28/22 04/17/23 aspirin 81 mg chewable tablet 81 mg PO DAILY@1200 03/03/23 04/17/23 fludrocortisone 0.1 mg tablet 0.1 mg PO DAILY 03/03/23 04/17/23 furosemide 20 mg tablet 10 mg PO DAILY 03/03/23 04/17/23 glucose 4 gram chewable tablet 4 g PO Q15M PRN 03/03/23 04/17/23 (Dex4 Glucose) saliva stimulant comb. no.3 1 applic mucous membrane Q1H PRN 03/03/23 04/17/23 (Biotene Moisturizing Mouth mucosal spray) sertraline 50 mg tablet 50 mg PO DAILY 03/03/23 04/17/23 sodium bicarbonate 650 mg tablet 650 mg PO TIDWM 03/03/23 04/17/23 loperamide 2 mg capsule 4 mg PO QID 03/27/23 04/17/23 psyllium 1 tbsp PO TID 03/27/23 04/17/23 Previous Rx's Medication Instructions Recorded sodium chloride 1,000 mg soluble 1,000 mg PO TIDWM 30 days #90 tabs 04/02/23 tablet amoxicillin 500 mg tablet 500 mg PO TID #21 tabs 04/20/23 insulin glargine 100 unit/mL (3 15 unit (0.15 mL) subcut QAM #15 mL 04/20/23 mL) subcutaneous pen (Lantus Solostar U-100 Insulin) Allergies Allergy/AdvReac Type Severity Reaction Status Date / Time adhesive tape Allergy Mild Rash Verified 04/17/23 13:35 diclofenac Allergy Unknown Verified 04/17/23 13:35 aspartame Allergy Verified 04/17/23 13:35 beclomethasone Allergy Verified 04/17/23 13:35 bisacodyl Allergy Verified 04/17/23 13:35 dexamethasone Allergy Verified 04/17/23 13:35 doxycycline Allergy Verified 04/17/23 13:35 erythromycin base Allergy Verified 04/17/23 13:35 gabapentin Allergy Verified 04/17/23 13:35 hydrochlorothiazide Allergy Verified 04/17/23 13:35 lactase [From Dairy Aid] Allergy Verified 04/17/23 13:35 meclizine Allergy Verified 04/17/23 13:35 metformin Allergy Verified 04/17/23 13:35 metoclopramide Allergy Verified 04/17/23 13:35 nabumetone [From Relafen] Allergy Verified 04/17/23 13:35 propranolol Allergy Verified 04/17/23 13:35 raloxifene Allergy Verified 04/17/23 13:35 ramipril Allergy Verified 04/17/23 13:35 tobramycin Allergy Verified 04/17/23 13:35 venlafaxine Allergy Verified 04/17/23 13:35 [facility] Medical History (Updated 08/30/23 @ 22:35 by Quang Padilla MD) Ileostomy in place ?Z93.2 - Ileostomy status (ICD-10) Unsteady gait ?R26.81 - Unsteadiness on feet (ICD-10) Polypharmacy ?Z79.899 - Other buttermilk drier operator (current) drug therapy (ICD-10) Osteoporosis ?M81.0 - Age-related osteoporosis without current pathological fracture (ICD-10) Ketoacidosis due to diabetes mellitus (08/03/13) ?E11.10 - Type 2 diabetes mellitus with ketoacidosis without coma (ICD-10) Irritable bowel syndrome ?K58.9 - Irritable bowel syndrome without diarrhea (ICD-10) Falls (03/31/12) ?W19.XXXA - Unspecified fall, initial encounter (ICD-10) Epistaxis ?R04.0 - Epistaxis (ICD-10) Diverticulitis of large intestine ?K57.32 - Diverticulitis of large intestine without perforation or abscess without bleeding (ICD-10) Diabetic gastroparesis (08/03/13) ?E11.43 - Type 2 diabetes mellitus with diabetic autonomic (poly)neuropathy (ICD-10) ?K31.84 - Gastroparesis (ICD-10) Coronary artery disease ?I25.10 - Atherosclerotic heart disease of [place] coronary artery without angina pectoris (ICD-10) Concussion (03/29/12) ?S06.0XAA - Concussion with loss of consciousness status unknown, initial encounter (ICD-10) Compression fracture of L2 vertebra with delayed healing ?S32.020G - Wedge compression fracture of second lumbar vertebra, subsequent encounter for fracture with delayed healing (ICD-10) Closed head injury ?S09.90XA - Unspecified injury of head, initial encounter (ICD-10) Closed fracture of superior ramus of right pubis ?S32.511A - Fracture of superior rim of right pubis, initial encounter for closed fracture (ICD-10) Closed fracture of left side of symphysis pubis ?S32.592A - Other specified fracture of left pubis, initial encounter for closed fracture (ICD-10) Closed fracture of left inferior pubic ramus ?S32.592A - Other specified fracture of left pubis, initial encounter for closed fracture (ICD-10) Chronic constipation (07/02/13) ?K59.09 - Other constipation (ICD-10) Anxiety disorder ?F41.9 - Anxiety disorder, unspecified (ICD-10) [place]'s disease ?E27.1 - Primary adrenocortical insufficiency (ICD-10) Seizure ?R56.9 - Unspecified convulsions (ICD-10) Hypothyroidism ?E03.9 - Hypothyroidism, unspecified (ICD-10) Hyponatremia (12/22/11) ?E87.1 - Hypo-osmolality and hyponatremia (ICD-10) Hyperkalemia (12/22/11) ?E87.5 - Hyperkalemia (ICD-10) Gastroesophageal reflux disease ?K21.9 - Gastro-esophageal reflux disease without esophagitis (ICD-10) Chronic pain ?G89.29 - Other chronic pain (ICD-10) Asthma ?J45.909 - Unspecified asthma, uncomplicated (ICD-10) Acute adrenal crisis ?E27.2 - Addisonian crisis (ICD-10) POLST (Physician Orders for Life-Sustaining Treatment) ?Z78.9 - Other specified health status (ICD-10) Health care directive on file ?Z78.9 - Other specified health status (ICD-10) High output ileostomy ?R19.8 - Other specified symptoms and signs involving the digestive system and abdomen (ICD-10) ?Z93.2 - Ileostomy status (ICD-10) Hyperkalemia ?E87.5 - Hyperkalemia (ICD-10) Abnormal liver enzymes ?R74.8 - Abnormal levels of other serum enzymes (ICD-10) Dementia ?F03.90 - Unspecified dementia without behavioral disturbance (ICD-10) Cataract ?H26.9 - Unspecified cataract (ICD-10) Dorsalgia ?M54.9 - Dorsalgia, unspecified (ICD-10) Hyperlipidemia ?E78.5 - Hyperlipidemia, unspecified (ICD-10) Unspecified dementia without behavioral disturbance ?F03.90 - Unspecified dementia without behavioral disturbance (ICD-10) Postmenopausal atrophic vaginitis ?N95.2 - Postmenopausal atrophic vaginitis (ICD-10) Convulsions ?R56.9 - Unspecified convulsions (ICD-10) Pressure ulcer of sacral region, unstageable ?L89.150 - Pressure ulcer of sacral region, unstageable (ICD-10) Constipation ?K59.00 - Constipation, unspecified (ICD-10) Primary hypertension ?I10 - Essential (primary) hypertension (ICD-10) Vertebral fracture Osteoarthritis ?M19.90 - Unspecified osteoarthritis, unspecified site (ICD-10) Chronic kidney disease (CKD) stage G3a/A1, moderately decreased glomerular filtration rate (GFR) between 45-59 mL/min/1.73 square meter and albuminuria creatinine ratio less than 30 mg/g ?N18.31 - Chronic kidney disease, stage 3a (ICD-10) 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 - Atherosclerotic heart disease of [place] coronary artery without angina pectoris (ICD-10) GERD (gastroesophageal reflux disease) ?K21.9 - Gastro-esophageal reflux disease without esophagitis (ICD-10) Anxiety ?F41.9 - Anxiety disorder, unspecified (ICD-10) Pelvic fracture ?S32.9XXA - Fracture of unspecified parts of lumbosacral spine and pelvis, initial encounter for closed fracture (ICD-10) Primary adrenocortical insufficiency ?E27.1 - Primary adrenocortical insufficiency (ICD-10) Diabetes mellitus type 1 ?E10.9 - Type 1 diabetes mellitus without complications (ICD-10) Surgical History S/P small bowel resection ?Z90.49 - Acquired absence of other specified parts of digestive tract (ICD-10) H/O angioplasty ?Z98.62 - Peripheral vascular angioplasty status (ICD-10) H/O mastoidectomy ?Z90.89 - Acquired absence of other organs (ICD-10) S/P laparoscopic cholecystectomy ?Z90.49 - Acquired absence of other specified parts of digestive tract (ICD-10) S/P appendectomy ?Z90.49 - Acquired absence of other specified parts of digestive tract (ICD-10) No significant past surgical history Social History Narrative: Patient lives in [place] [facility] [place]. What is your current living situation?: I presently have a place to live Problems where you live: no known problems Problems where you live details: none In the past 12 months, utilities in danger of being shut off: no In past 12 months, lack of transportation kept you from medical appts, meetings, work, or getting things needed for daily living: no In the past 12 mos, have been you worried that your food would run out before you had money to buy more?: never true In the past 12 mos, the food you bought just didn't last and you didn't have money to buy more?: never true Highest level of school completed/degree received: Master's degree Smoking Status: Never smoker Do you use any of these nicotine containing products: None Second hand tobacco smoke exposure: No How often do you have a drink containing alcohol: never How often do you have six or more drinks on one occasion: Never AUDIT-C Alcohol total score: 0 Non-prescribed substance use: denies use Caffeine: Yes (diet coke) How often does anyone, including family, friends and others, physically hurt you: never How often does anyone, including family, friends and others, insult or talk down to you: never How often does anyone, including family, friends and others, threaten you with harm: never How often does anyone, including family, friends and others, scream or curse at you: never service: No Exam Narrative: Exam Narrative: Constitutional: Elderly and frail appearing. Alert. She is polite. Smiles when I a dresser as, ?Becca. ?. Answer some questions and follow some simple commands appropriately. At other times she is either seems not to here or not understand my questions. She says she is nauseous. Not actively vomiting. Blood pressure 85/56 HENT: Head: Atraumatic. Nose: Nose normal. Mouth/Throat: Oral mucosa is clear but dry no trismus. Visualized pharynx normal. Eyes: Conjunctivae normal. EOM normal. Pupils equal, round, and reactive to light. No scleral icterus. Neck: Normal range of motion. Neck supple. No tracheal deviation present. Cardiovascular: Normal rate, regular rhythm. No gallop. No friction rub. No murmur heard. Symmetric radial artery pulses Pulmonary/Chest: Effort normal. No stridor. No respiratory distress. No wheezes. No rales. No rhonchi . No tenderness. Abdominal: Soft. Bowel sounds normal. No distension. No mass. Difficult to examine because she is keeping her knees drawn up. No definite tenderness but it seems like she is uncomfortable when I palpate her left upper quadrant. No rebound. No guarding. Ostomy in right mid abdomen. There is a small amount of watery output in the ostomy bag. Musculoskeletal: RUE: Normal range of motion. No tenderness. No deformity LUE: Normal range of motion. No tenderness. No deformity RLE: Normal range of motion. No edema. No tenderness. No deformity LLE: Normal range of motion. No edema. No tenderness. No deformity Neurological: Alert and oriented to person, place, and and day of the week. Generalized weakness but no focal strength deficit. CN II-VII intact. No sensory deficit. GCS eye subscore is 4. GCS verbal subscore is 5. GCS motor subscore is 6. Normal coordination Skin: Skin is warm and dry. No rash noted. No pallor. Normal capillary refill. Psychiatric: Limited. Const: Vital Signs, click to edit/add: Vital Signs - 24 hr 08/30/23 17:37 08/30/23 17:38 08/30/23 19:30 Temperature 97.5 F L Pulse Rate 67 Pulse Rate [Pulse Oximeter] 64 Respiratory Rate 16 Blood Pressure 98/56 L Blood Pressure [Ri ght Upper Arm] 85/56 L Pulse Oximetry 95 97 Oxygen Delivery Me thod Room Air 08/30/23 19:32 08/30/23 20:02 08/30/23 20:17 Temperature Pulse Rate Pulse Rate [Pulse Oximeter] Respiratory Rate Blood Pressure 110/46 L 86/40 L 89/43 L Blood Pressure [Ri ght Upper Arm] Pulse Oximetry Oxygen Delivery Me thod 08/30/23 20:21 08/30/23 20:30 08/30/23 20:32 Temperature Pulse Rate 57 L 56 L Pulse Rate [Pulse Oximeter] Respiratory Rate Blood Pressure 84/39 L Blood Pressure [Ri ght Upper Arm] Pulse Oximetry 93 96 97 Oxygen Delivery Me thod 08/30/23 20:45 08/30/23 20:46 08/30/23 21:02 Temperature Pulse Rate 61 62 Pulse Rate [Pulse Oximeter] Respiratory Rate Blood Pressure 87/41 L 80/37 L Blood Pressure [Ri ght Upper Arm] Pulse Oximetry 90 97 Oxygen Delivery Me thod 08/30/23 21:13 08/30/23 21:16 08/30/23 21:17 Temperature Pulse Rate 61 56 L Pulse Rate [Pulse Oximeter] Respiratory Rate Blood Pressure 78/40 L 89/41 L Blood Pressure [Ri ght Upper Arm] Pulse Oximetry 85 L 97 Oxygen Delivery Me thod 08/30/23 21:22 08/30/23 21:27 08/30/23 21:30 Temperature Pulse Rate 57 L 57 L 56 L Pulse Rate [Pulse Oximeter] Respiratory Rate Blood Pressure 87/39 L 90/45 L Blood Pressure [Ri ght Upper Arm] Pulse Oximetry 92 95 94 Oxygen Delivery Me thod 08/30/23 21:32 08/30/23 21:42 08/30/23 21:45 Temperature Pulse Rate 56 L 54 L 54 L Pulse Rate [Pulse Oximeter] Respiratory Rate Blood Pressure 86/49 L 107/51 L Blood Pressure [Ri ght Upper Arm] Pulse Oximetry 98 96 76 L Oxygen Delivery Me thod 08/30/23 21:52 08/30/23 21:55 08/30/23 21:59 Temperature Pulse Rate 60 Pulse Rate [Pulse Oximeter] Respiratory Rate Blood Pressure 107/48 L 90/43 L 99/43 L Blood Pressure [Ri ght Upper Arm] Pulse Oximetry 76 L Oxygen Delivery Me thod 08/30/23 22:02 08/30/23 22:03 08/30/23 22:10 Temperature Pulse Rate 57 L 52 L 54 L Pulse Rate [Pulse Oximeter] Respiratory Rate Blood Pressure 96/44 L 82/43 L Blood Pressure [Ri ght Upper Arm] Pulse Oximetry 95 98 98 Oxygen Delivery Me thod 08/30/23 22:12 08/30/23 22:15 08/30/23 22:22 Temperature Pulse Rate 53 L 55 L 62 Pulse Rate [Pulse Oximeter] Respiratory Rate Blood Pressure 79/41 L 86/39 L Blood Pressure [Ri ght Upper Arm] Pulse Oximetry 97 97 97 Oxygen Delivery Me thod 08/30/23 22:30 08/30/23 22:32 Temperature Pulse Rate 58 L 57 L Pulse Rate [Pulse Oximeter] Respiratory Rate Blood Pressure 93/45 L Blood Pressure [Ri ght Upper Arm] Pulse Oximetry 97 97 Oxygen Delivery Me thod Course Course ED Course: Multiple bedside rechecks, blood pressure checks, mental status checks. I was working with the patient's nurse to establish appropriate IV access, administered boluses, check affective IV fluid boluses, monitor urine output. Repeat blood sugar low at 50. Dextrose administered. Started on D5 drip. Had phone conversation with the patient's son Yung [phone] and the patient's daughter Gianna is [phone] to discuss goals of care and the patient's critical presentation. Add additional bedside rechecks with the patient and with her nurse for monitoring blood pressure. Patient accepted to the ICU at [facility]. Blood pressure was low as we are administering additional IV fluids. We ordered Levophed drip. Initially she only had very tenuous peripheral IV access. We were able to get an additional large bore 18 gauge long catheter into the patient's left brachial vein which was much more reliable peripheral access. This will allow us to start Levophed through peripheral and avoid starting central line. My ordered bicarb drip was delayed because it had to be mixed up by the green house manager and brought down from the main hospital pharmacy. Total calcium was measured low and corrected calcium for albumin was also low. We had started infusion of 1 amp of calcium gluconate to correct this. With this the patient developed bradycardia. Calcium was discontinued. Concern was for possible worsening metabolic acidosis. The patient was developing worsening bradycardia with sinus bradycardia in the 50s. Administered 1 amp sodium bicarbonate while we were awaiting the bicarb drip. Repeat lactic acid normal at 1.6. After started on Levophed at 0.05 mics per kg per minute blood pressure came up to 109/55. Patient remains sleeping but arousable, GCS 14, protecting airway. Heart rate had dropped to sinus bradycardia in the 50s. Since we had still not been able to start a bicarb drip was concerned about worsening acidosis. We administered 1 amp of bicarb to correct metabolic acidosis while we are awaiting her drip. Repeat BMP drawn in about 09 01 came back with abnormal findings. Calcium low at 5.3. Glucose elevated 1221. This is 10 times higher than what we had been measuring on our previous labs. Suspect this is probably a laboratory error. Will redraw BMP, repeat BMP. After completion of bicarb amp bolus, heart rate came up into the 50s into the 70s. Blood pressure now 109/54 on Levophed. Doing well. Skin pink her and more well perfused. Vital Signs Vital signs: Initial Vital Signs Temperature 97.5 F L 08/30/23 17:37 Temperature Source Temporal Artery Scan 08/30/23 17:37 Pulse Rate 64 08/30/23 17:37 Pulse Rhythm Regular 08/30/23 17:37 Respiratory Rate 16 08/30/23 17:37 Blood Pressure 85/56 L 08/30/23 17:37 Blood Pressure Mean 65 L 08/30/23 17:37 Blood Pressure Position Sitting 08/30/23 17:37 Pulse Oximetry 95 08/30/23 17:37 Oxygen Delivery Method Room Air 08/30/23 17:37 Vital Signs Temperature 97.5 F L 08/30/23 17:37 Pulse Rate 64 08/30/23 17:37 Respiratory Rate 16 08/30/23 17:37 Blood Pressure 85/56 L 08/30/23 17:37 Pulse Oximetry 95 08/30/23 17:37 Oxygen Delivery Method Room Air 08/30/23 17:37 Temperature 97.5 F L 08/30/23 17:37 Pulse Rate 57 L 08/30/23 22:32 Respiratory Rate 16 08/30/23 17:37 Blood Pressure 93/45 L 08/30/23 22:32 Pulse Oximetry 97 08/30/23 22:32 Oxygen Delivery Method Room Air 08/30/23 17:37 Medical Decision Making MDM Narrative Medical decision making narrative: 88-year-old female presents to the ER today with a reported history of vomiting and no blood pressure this afternoon. 1. Neuro. She presented with GCS of 15 but perhaps mildly confused. While in the ER she did develop nonfocal altered mental status. She was found to have developed hypoglycemia which was treated rapidly with dextrose and followed by dextrose infusion. Hypoglycemia corrected to normal. She remains with mildly altered mental status and drowsiness, slightly worse than presentation but still is arousable, GCS 14, and is protecting her airway. No focal deficits to suggest stroke. No report of headache to suggest meningitis. No fever. Minimal leukocytosis. At this point lumbar puncture not indicated and in any case would be contraindicated because of other illness/need for resuscitation. In terms of airway protection , we were concerned that she might have deteriorating mental status and require intubation for airway protection. Discussed with her son repeat. He was initially unsure if she would want a trial a ventilator or not. He certainly says she would not want long-term ventilator but she might want a ventilator if she had a reversible condition. Later we were able to obtain a copy of her advance directives which indicate she is DNR/DNI. 2. Blood pressure. She was hypotensive at the time of presentation. Initially thought to be due to dehydration from vomiting. Initially blood pressure responded to IV saline administration and hydrocortisone Administration (for history of René's disease) but subsequently blood pressure was deteriorating. Blood pressure came back down to the 80s over 50s. We administered a total of 3 L of IV crystalloid (2 L NS and 1 L LR). Weight is 45 kg so this would equate to about 60 mL/kg. Cause for hypotension is unclear. She has a history of similar hypertension in the past due to profound dehydration, which we how to correct with IV fluids. Hydrocortisone administered for possible adrenal crisis. She has mildly abnormal troponin which I think reflects demand ischemia. Troponin not rising an EKG nonischemic, no report of chest pain so doubt ACS. Consider possible septic shock. Broad-spectrum antibiotics initiated. However she is not febrile, only has minimal leukocytosis, lactic acid is normal. No evidence for anaphylaxis or distributive sock. No shortness of breath, chest pain, hypoxia to suggest PE. 3. Renal. She does have an acute kidney injury with creatinine up from recent baseline of about 1.3 up to 1.6. After the initial 2 L repeat BMP shows improvement of creatinine down to 1.4. No evidence for obstruction on her abdomen/pelvis CT. After receiving 3 L of crystalloid she put out about 400-500 mL of dark yellow urine. 4. Electrolytes. She does have hyponatremia with a sodium of 130, dropping down to 125 after IV crystalloid infusion. She does not have concomitant hyperkalemia suggest adrenal insufficiency. Baseline sodium it is appears to be about 129-130. Calcium is low at 7 point 6. Albumin is normal. Using formula for corrected calcium is low at 7.3. One amp Calcium gluconate ordered. Bicarb was initially low at 19 and dropped to 14. Suspect this may be due to GI losses for because of ongoing output from her colostomy. She has a non-anion gap metabolic acidosis. Possibly related to GI bicarb losses. Anion gap normal, blood sugar not elevated, therefore no evidence for DKA. Lactic acid normal. Consider non anion gap metabolic acidosis also related to possible acute kidney injury. After consultation with nuclear reactor technician will start on bicarb drip to correct/keep up with GI losses. 5. Cardiac. EKG shows sinus rhythm and no ischemia. Troponin abnormal at 0.18. She has not reported any chest pain. At this point doubt ACS. Serial troponin is stable/declining down to 0.15. developed bradycardia with heart rate dropping into the 50s. Responded to sodium bicarb bolus. 6. Pulmonary. Oxygen normal on room air. No cough. She does not really appear to have a respiratory acidosis. 7. Hepatic. LFTs mildly abnormal. AST 93, ALT 84, alk-phos 164. Bilirubin normal at 0.9. These were more abnormal when she was hospitalized in April (thought to have passed a gallstone at that time). No clear biliary abnormality on CT. Lipase normal. 8. GI. CT scan obtained to look for bowel obstruction or other cause for vomiting. No obstructive pattern but she does have evidence for wall thickening of her stomach and small intestine. Treated with IV Protonix for possible peptic ulcer disease. Consider possible infection or gastroenteritis as a cause for her vomiting and CT findings. She had over 400 mL of watery stool out her ostomy bag while here in the ER. 9. Endocrine. She does have insulin-dependent diabetes. Initially normal glycemic but then developed hypoglycemia here in the ER. Found to be 50. Corrected with D50 and then dextrose infusion. Follow-up blood sugars have remained normal. No evidence for DKA. Hydrocortisone for possible adrenal crisis. 10. Resuscitation/goals of care. This patient is critically ill and seems to be deteriorating here in the ER. Of anticipating she may need aggressive resuscitation I contacted her son and daughter for guidance about her wishes. Specifically would she want central line for vasopressors, intubation for airway protection, and ICU admission for supportive care. Son and daughter were initially taken off guard by my questions. They are not sure whether she would want aggressive care like that. They are also not sure that they would want to let her . Ultimately they confirm that she would want a short trial of intubation such as overnight or 2 days but would not want prolonged intubation. She would want vasopressors. She would not want CPR if her heart stops. Discussed with nuclear reactor technician, Dr. Bailey through the [email or web address] system for consultation. She recommended starting bicarb drip which was ordered. We got the patient onto a wait list for an ICU bed in the [facility]. Subsequently, I was able to talk to Dr. Urrutia, ICU at [facility]. We reviewed the patient's presentation. He accepted to the ICU. At 11:30 p.m. repeat BMP and venous blood gas are still pending. Discussed with my partner, Dr. Gutierrez will follow-up on those results. Patient's son updated 1125 about her improving condition blood pressures at least normal vasopressors. Heart rate now in the 70s. She still remains critically ill. Critical care addendum. Critical care time for this patient, excluding procedures, spent in multiple bedside rechecks, blood pressure monitoring, mental status and airway checks, glucose management, treatment of hypotension and shock, management of a suppressive medication, treatment of life-threatening acidosis, correction of bradycardia, consultation with intensive care unit, conference with patient's family to determine goals of care was 120-140 minutes. Lab Data Labs: Lab Results 08/30/23 08/30/23 08/30/23 Range/Units 17:30 20:00 22:30 WBC 11.53 H (4.50-11.00) K/uL RBC 5.55 H (4.00-5.20) m/uL Hgb 15.7 (12.0-16.0) gm/dL Hct 47.8 (33.0-51.0) % MCV 86 (80-100) fL MCH 28 (26-34) pg MCHC 33 (32-36) gm/dL RDW Coeff of Sharmaine 13.1 (11.5-15.5) % Plt Count 310 (140-440) K/uL Neut % (Auto) 48.6 (42.0-72.0) % Lymph % (Auto) 40.2 (20-44) % [place] % (Auto) 8.5 (0.0-11.0) % Eos % (Auto) 2.3 (0.0-7.0) % Baso % (Auto) 0.3 (0.0-3.0) % Neut # (Auto) 5.60 (1.7-7.0) K/uL Lymph # (Auto) 4.60 H (0.90-2.90) K/uL [place] # (Auto) 1.00 H (0.00-0.90) K/UL Eos # (Auto) 0.30 (0.00-0.50) K/uL Baso # (Auto) 0.00 (0.00-0.30) K/uL Abs Immat Gran (auto) 0.00 (0.00-0.30) K/uL Imm/Tot Granulo (auto) 0.1 % VBG pH 7.221 L* 7.178 L* (7.32-7.43) VBG pCO2 51 H 43 (40-50) mmHG VBG pO2 23.7 L 31.4 (25-47) mmHG VBG HCO3 21 16 L (21-28) mmol/L Sodium 130 L 125 L (135-149) mmol/L Potassium 4.9 5.0 (3.6-5.1) mmol/L Chloride 101 107 (96-114) mmol/L Carbon Dioxide 19 L 14 L (20-32) mmol/L Anion Gap 10 4 L (7-15) mEq/L BUN 62 H 54 H (7-30) mg/dL Creatinine 1.6 H 1.4 (0.5-1.5) mg/dL Estimated Creat Clear 18.07 20.65 Estimated GFR 31 37 ml/min Glucose 71 257 H (60-115) mg/dL Lactate 1.9 1.6 (0.5-1.9) mmol/L Calcium 10.1 7.8 L (8.4-10.6) mg/dL Total Bilirubin 0.9 (0.1-1.5) mg/dL AST 93 H (12-35) U/L ALT 84 H (4-35) U/L Alkaline Phosphatase 164 H (40-150) U/L Troponin I 0.18 H* 0.15 H* (0.01-0.04) ng/mL Total Protein 7.9 (6.0-8.3) g/dL Albumin 4.6 (3.3-5.0) g/dL Lipase 40 (23-300) U/L Imaging Data CT scan - abdomen: Attestation: I have reviewed the pertinent imaging results. Radiologist's impression: IMPRESSION: Gastritis and enteritis, appears infectious or inflammatory. ECG Data Attestation: I personally reviewed and interpreted this ECG as follows: Interpretation: Normal sinus rhythm rate 68 AK 122 QRS axis normal axis. No pathologic Q-waves. ST segment/T wave: No ST segment elevation or depression. QTc: 435 Critical Care Time Critical Care Time Critical Care Time: Yes Attestation: The patient required my highest level preparedness to intervene emergently and I personally spent this critical care time directly and personally managing the patient. This critical care time included: Obtaining a history; Examining the patient; Pulse oximetry; Ordering and reviewing of studies; Arranging urgent treatment with development of a management plan; Evaluation of patients response to treatment; Frequent reassessment discussions with other providers. This critical care time was performed to assess and manage the high probability of imminent life-threatening deterioration that could result in multiorgan failure. It was exclusive of separate billable procedures and treating other patients and teaching time. Total Critical Care Time in Minutes: 120 Discharge Plan Discharge Clinical Impression: LUPE (acute kidney injury), Acute alteration in mental status, Acute hypotension, Acute dehydration, Gastritis, Enteritis, Metabolic acidosis, Vomiting, Acute hyponatremia, Hypocalcemia, Hypoglycemia Patient Disposition: Xfer Other Prescriptions: No Action acetaminophen 500 mg capsule 1,000 mg PO QID PRN ondansetron HCl 4 mg tablet 4 mg PO Q6H PRN metoprolol tartrate 25 mg tablet 12.5 mg PO BID simethicone 80 mg tablet,chewable 80 mg PO BID Rx Instructions: PLUS PRN psyllium Powder 1 tbsp PO TID Rx Instructions: mix into at least 8 oz of water or juice before administering loperamide 2 mg Capsule 4 mg PO QID Rx Instructions: hold for formed thick stool in ostomy sodium chloride 1,000 mg Tablet,Soluble 1,000 mg PO TIDWM 30 Days Qty: 90 0RF hydrocortisone 5 mg tablet 7.5 - 15 mg PO BID Rx Instructions: 15 MG IN AM, 7.5 MG IN PM levothyroxine 75 mcg tablet 75 mcg PO DAILY morphine 15 mg tablet extended release 15 mg PO TID estradiol 0.01 % (0.1 mg/gram) cream 1 appful VAGINAL MOTH@09 Rx Instructions: MON, insulin lispro [Humalog KwikPen Insulin] 100 unit/mL insulin pen 5 unit SUBCUT TIDWM Patient Comments: Rx Instructions: 5 UNITS WITH MEALS PLUS: SLIDING SCALE OF: BG UNITS 180-219 2 220-259 3 260-299 4 300-339 5 [phone] 6 [phone] CALL coenzyme Q10 100 mg capsule 100 mg PO HS olopatadine 0.2 % drops 1 drp ophthalmic (eye) DAILY cholecalciferol (vitamin D3) 50 mcg (2,000 unit) tablet 4,000 unit PO HS Women's One Daily 18 mg iron-400 mcg-500 mg Ca tablet 1 tab PO DAILY vitamin B complex [Vitamins B Complex] Capsule 1 cap PO DAILY oxycodone 5 mg tablet 5 mg PO Q6H PRN Probiotic 3 billion cell capsule 3,000 mmu cells PO DAILY Rx Instructions: administer with a meal sertraline 50 mg tablet 50 mg PO DAILY Biotene Moisturizing Mouth [place],Non-Aerosol 1 applic mucous membrane Q1H PRN glucose [Dex4 Glucose] 4 gram tablet,chewable 4 g PO Q15M PRN furosemide 20 mg tablet 10 mg PO DAILY fludrocortisone 0.1 mg tablet 0.1 mg PO DAILY sodium bicarbonate 650 mg Tablet 650 mg PO TIDWM aspirin 81 mg tablet,chewable 81 mg PO DAILY@1200 insulin glargine [Lantus Solostar U-100 Insulin] 100 unit/mL (3 mL) insulin pen 15 unit SUBCUT QAM Qty: 15 0RF Rx Instructions: this is a change in timing of dosing - not dose. 15 units in the morning instead of giving it at night. amoxicillin 500 mg tablet 500 mg PO TID Qty: 21 0RF Stand Alone Forms: [facility]
[2023-08-30 17:45] LABS: pH VBG 7.221 (7.32-7.43)
[2023-08-30 17:49] LABS: Slide Review Reflex No
[2023-08-30] MEDS: HYDROCORTISONE SOD SUCCINATE 50 MG/ML inj 100 MG IVP (17:53)
[2023-08-30] MEDS: ONDANSETRON 2 MG/ML inj 4 MG IVP (17:53)
[2023-08-30] MEDS: 0.9 % SODIUM CHLORIDE 1000 ml 1,000 ML IV ×3 (17:53→23:23)
[2023-08-30 17:56] LABS: Albumin* 4.6 g/dL (3.3-5.0); Chloride* 101 mmol/L (96-114); Potassium* 4.9 mmol/L (3.6-5.1); Sodium* 130 mmol/L (135-149)
[2023-08-30 17:58] LABS: Anion Gap 10 mEq/L (7-15); Aspartate Amino Transferase* 93 U/L (12-35); Bilirubin Total* 0.9 mg/dL (0.1-1.5); Carbon Dioxide* 19 mmol/L (20-32); Creatinine* 1.6 mg/dL (0.5-1.5); Est. Creatinine Clearance* 18.07; Estimated Glomerular Filt Rate 31 ml/min
[2023-08-30 17:59] LABS: Alanine Aminotransferase* 84 U/L (4-35); Alkaline Phosphatase* 164 U/L (40-150); Blood Urea Nitrogen* 62 mg/dL (7-30); Calcium* 10.1 mg/dL (8.4-10.6); Glucose* 71 mg/dL (60-115); Lipase* 40 U/L (23-300); Total Protein* 7.9 g/dL (6.0-8.3)
[2023-08-30 18:26] LABS: Troponin I* 0.18 ng/mL (0.01-0.04)
[2023-08-30] MEDS: DEXTROSE 50 % SYRINGE IVP (19:40)
--- NOTE | 2023-08-30 19:41 | ED.NURSE ---
Pt's blood sugar upon check was 50. Patient sleeping and arousable. Dextrose solution administered.
[2023-08-30] MEDS: PANTOPRAZOLE SODIUM 40 MG INJ 80 MG IVP (19:56)
[2023-08-30 20:09] LABS: HCO3 VBG 16 mmol/L (21-28); PCO2 VBG 43 mmHG (40-50); PO2 VBG 31.4 mmHG (25-47)
[2023-08-30 20:12] LABS: pH VBG 7.178 (7.32-7.43)
[2023-08-30] MEDS: 5 % DEXTROSE/0.9% SOD CHLORIDE 1,000 ML 125 ML IV (20:23)
--- NOTE | 2023-08-30 20:28 | ED.NURSE ---
Blood sugar recheck is 116.
[2023-08-30 20:38] LABS: Chloride* 107 mmol/L (96-114); Sodium* 125 mmol/L (135-149)
[2023-08-30 20:41] LABS: Anion Gap 4 mEq/L (7-15); Blood Urea Nitrogen* 54 mg/dL (7-30); Calcium* 7.8 mg/dL (8.4-10.6); Carbon Dioxide* 14 mmol/L (20-32); Creatinine* 1.4 mg/dL (0.5-1.5); Est. Creatinine Clearance* 20.65; Estimated Glomerular Filt Rate 37 ml/min; Glucose* 257 mg/dL (60-115)
[2023-08-30 20:59] LABS: Troponin I* 0.15 ng/mL (0.01-0.04)
[2023-08-30] MEDS: LACTATED RINGERS 1000 ML IV (21:09)
--- NOTE | 2023-08-30 21:23 | ED.NURSE ---
Blood sugar reading 147.
[2023-08-30 21:59] LABS: Appearance Urine Turbid (Clear); Bilirubin Urine Negative (Negative); Blood Urine Trace-intact (Negative); Color Urine Yellow (Yellow); Glucose Urine Negative (Negative); Ketones Urine Negative (Negative); Leukocyte Esterase Urine Trace (Negative); Nitrite Urine Negative (Negative); Protein Urine Trace (Negative); Specific Gravity Urine 1.015 (1.000-1.030); Urobilinogen Urine 0.2 (0.2-1.0); pH Urine 5.5 (5.0-8.5)
--- NOTE | 2023-08-30 22:03 | ED.NURSE ---
Placed 16 F gray catheter without complication. See flowsheet documentation. Also emptied 400 cc watery stool output from her ostomy bag.
[2023-08-30] MEDS: PIPERACILLIN/TAZOBACTAM 4.5 GM in 0.9 % SODIUM CHLORIDE Mini-bag 100 ML IVPB (22:04)
--- NOTE | 2023-08-30 22:24 | ED.NURSE ---
Report given to RN at the ICU.
[2023-08-30] MEDS: CALCIUM GLUC 1,000MG/50 ML 1,000 MG/50 ML BAG 100 MG IVPB (22:29)
[2023-08-30 22:44] LABS: Lactate* 1.6 mmol/L (0.5-1.9)
--- NOTE | 2023-08-30 22:54 | ED.NURSE ---
Patient klaudia down to 48, calcium stopped. Systolic 65, repositioned and norepi started.
[2023-08-30 23:01] LABS: Chloride* 120 mmol/L (96-114)
[2023-08-30 23:02] LABS: Potassium* 3.7 mmol/L (3.6-5.1); Sodium* 133 mmol/L (135-149)
[2023-08-30 23:03] LABS: Bacteria Urine Moderate; Squamous Epithelial Cell Urine Moderate (None-Few)
[2023-08-30 23:04] LABS: Creatinine* 0.9 mg/dL (0.5-1.5); Est. Creatinine Clearance* 28.92; Estimated Glomerular Filt Rate 62 ml/min
[2023-08-30 23:05] LABS: Anion Gap 3 mEq/L (7-15); Blood Urea Nitrogen* 36 mg/dL (7-30); Carbon Dioxide* 10 mmol/L (20-32)
[2023-08-30] MEDS: SODIUM BICARBONATE 50 MEQ/50ML SYRINGE IVP (23:23)
--- NOTE | 2023-08-30 23:25 | ED.NURSE ---
Patient's blood sugar was 187 on check now. Will ask lab to redraw labwork due to question on accuracy of results.
--- NOTE | 2023-08-30 23:26 | ED.NURSE ---
Patient's heart rate responded well to bicarb administration and blood pressure now 133 systolic. Vital signs are within normal range.
--- NOTE | 2023-08-30 23:44 | ED.NURSE ---
Updated [facility] on patient's condition and transfer to [facility] ICU.
[2023-08-31] VITALS (17 sets, daily range): BP systolic 98–113; BP diastolic 44–52; PULSE 62–74; O2SAT 96–98
[2023-08-31 00:16] LABS: HCO3 VBG 16 mmol/L (21-28); PCO2 VBG 41 mmHG (40-50); PO2 VBG 34.4 mmHG (25-47)
[2023-08-31 00:19] LABS: pH VBG 7.197 (7.32-7.43)
[2023-08-31 00:38] LABS: Chloride* 108 mmol/L (96-114); Sodium* 130 mmol/L (135-149)
[2023-08-31 00:40] LABS: Creatinine* 1.3 mg/dL (0.5-1.5); Est. Creatinine Clearance* 22.24; Estimated Glomerular Filt Rate 40 ml/min
[2023-08-31 00:41] LABS: Anion Gap 9 mEq/L (7-15); Blood Urea Nitrogen* 50 mg/dL (7-30); Calcium* 8.1 mg/dL (8.4-10.6); Carbon Dioxide* 13 mmol/L (20-32); Glucose* 207 mg/dL (60-115)
--- NOTE | 2023-08-31 00:58 | ED.NURSE ---
550 cc output from gray catheter at this time.
--- NOTE | 2023-08-31 01:36 | ED.NURSE ---
Spoke with [place] ICU nurse to notify that patient has left the ER and updates since last report given.
[2023-11-18 13:34] LABS: Glucose, Point-of-Care* 50 mg/dl (60-115)
== END 2023-08-31 01:38 | disposition other institution (70) ==
PROVIDERS: Emergency Provider Emergency Medicine; PCP Family Medicine
DX: N17.9 Acute kidney failure, unspecified (principal); E87.20 Acidosis, unspecified; K29.70 Gastritis, unspecified, without bleeding; I95.9 Hypotension, unspecified
CPT/HCPCS: 36415; 74177; 80048; 80053; 81001; 82803; 82947; 83605; 83690; 84484; 85025; 87040; 87086; 93005; 94761; 96365; 96366; 96375; 99285; 99291; 99292; C9113; J0610; J0612; J0613; J1720; J2405; J2543; J3370; J7030; J7042; J7120; Q9967

== ENCOUNTER 2023-08-31 01:27 | Outpatient (CLI) | payer BC, SELFPAY | END 2023-08-31 01:28 | disposition home or self-care (01) | LOC: AMB 09-03 09:21 | PROVIDERS: PCP Family Medicine; Visit Provider Family Medicine | DX: I95.9 Hypotension, unspecified (principal); R41.82 Altered mental status, unspecified; Z93.2 Ileostomy status | CPT/HCPCS: A0425; A0434 ==

== ENCOUNTER 2023-09-16 12:28 | Outpatient (REF) | payer BC, SELFPAY ==
[2023-09-16 13:13] LABS: Chloride* 95 mmol/L (96-114); Potassium* 5.7 mmol/L (3.6-5.1)
[2023-09-16 13:16] LABS: Anion Gap 6 mEq/L (7-15); Blood Urea Nitrogen* 41 mg/dL (7-30); Carbon Dioxide* 21 mmol/L (20-32); Creatinine* 1.5 mg/dL (0.5-1.5); Estimated Glomerular Filt Rate 34 ml/min
[2023-09-16 13:17] LABS: Calcium* 8.9 mg/dL (8.4-10.6)
[2023-09-16 13:22] LABS: Glucose* 359 mg/dL (60-115); Sodium* 122 mmol/L (135-149)
== END 2023-09-16 12:29 | disposition home or self-care (01) ==
LOC: NPINS 12:28
PROVIDERS: PCP Family Medicine; Visit Provider Family Medicine
DX: E87.1 Hypo-osmolality and hyponatremia (principal)
CPT/HCPCS: 80048

== ENCOUNTER 2023-09-18 15:17 | Outpatient (CLI) | payer BC, SELFPAY | END 2023-09-18 15:18 | disposition home or self-care (01) | LOC: AMB 09-24 09:23 | PROVIDERS: PCP Family Medicine; Visit Provider Internal Medicine | DX: R11.2 Nausea with vomiting, unspecified (principal); R53.1 Weakness | CPT/HCPCS: A0425; A0429 ==

== ENCOUNTER 2023-09-18 15:39 | Inpatient (IN) | payer BC, SELFPAY ==
[2023-09-18] VITALS (21 sets, daily range): BP systolic 83–122; BP diastolic 51–71; PULSE 48–70; RESP 16; TEMP 35.9–36.5; O2SAT 87–99; BMI 17.4; BMI 17.0
--- NOTE | 2023-09-18 16:01 | ED_ITS ---
HPI - General Adult General Date Seen: 09/18/23 Chief complaint: Abdominal Pain Stated complaint: vomiting Time Seen by Provider: 09/18/23 15:46 Source: patient, EMS, RN notes reviewed and old records reviewed Mode of arrival: EMS Limitations: no limitations History of Present Illness HPI narrative: Patient is an 88-year-old woman sent in from a care facility for reported ?declining health status, history of hyponatremia, sodium was 122 a couple of days ago. Patient tells me she has felt lightheaded and nauseated for the past couple of days. She does say that she has been eating and drinking without difficulty but had 1 episode of vomiting this morning. She has an ostomy, reports normal output. She has not had abdominal pain, fevers, cough or pain anywhere else according to her report. Related Data Home Medications Medication Instructions Recorded Confirmed cholecalciferol (vitamin D3) 50 4,000 unit PO HS 05/02/22 04/17/23 mcg (2,000 unit) tablet coenzyme Q10 100 mg capsule 100 mg PO HS 05/02/22 04/17/23 estradiol 0.01% (0.1 mg/gram) 1 appful vaginal MOTH@09 05/02/22 04/17/23 vaginal cream hydrocortisone 5 mg tablet 7.5 - 15 mg PO BID 05/02/22 04/17/23 insulin lispro 100 unit/mL 5 unit subcut TIDWM 05/02/22 04/17/23 subcutaneous pen (Humalog KwikPen (U-100) Insulin) lactobacillus combination no.4 3 3,000 mmu cells PO DAILY 05/02/22 04/17/23 billion cell capsule (Probiotic) levothyroxine 75 mcg tablet 75 mcg PO DAILY 05/02/22 04/17/23 morphine 15 mg tablet,extended 15 mg PO TID 05/02/22 04/17/23 release multivit-iron 18 mg-folic acid 400 1 tab PO DAILY 05/02/22 04/17/23 mcg-calcium 500 mg-minerals tablet (Women's One Daily) olopatadine 0.2 % eye drops 1 drp ophthalmic (eye) DAILY 05/02/22 04/17/23 oxycodone 5 mg tablet 5 mg PO Q6H PRN 05/02/22 04/17/23 vitamin B complex (Vitamins B 1 cap PO DAILY 05/02/22 04/17/23 Complex capsule) acetaminophen 500 mg capsule 1,000 mg PO QID PRN 05/28/22 03/27/23 metoprolol tartrate 25 mg tablet 12.5 mg PO BID 05/28/22 04/17/23 ondansetron HCl 4 mg tablet 4 mg PO Q6H PRN 05/28/22 04/17/23 simethicone 80 mg chewable tablet 80 mg PO BID 05/28/22 04/17/23 aspirin 81 mg chewable tablet 81 mg PO DAILY@1200 03/03/23 04/17/23 fludrocortisone 0.1 mg tablet 0.1 mg PO DAILY 03/03/23 04/17/23 furosemide 20 mg tablet 10 mg PO DAILY 03/03/23 04/17/23 glucose 4 gram chewable tablet 4 g PO Q15M PRN 03/03/23 04/17/23 (Dex4 Glucose) saliva stimulant comb. no.3 1 applic mucous membrane Q1H PRN 03/03/23 04/17/23 (Biotene Moisturizing Mouth mucosal spray) sertraline 50 mg tablet 50 mg PO DAILY 03/03/23 04/17/23 sodium bicarbonate 650 mg tablet 650 mg PO TIDWM 03/03/23 04/17/23 loperamide 2 mg capsule 4 mg PO QID 03/27/23 04/17/23 psyllium 1 tbsp PO TID 03/27/23 04/17/23 Previous Rx's Medication Instructions Recorded sodium chloride 1,000 mg soluble 1,000 mg PO TIDWM 30 days #90 tabs 04/02/23 tablet amoxicillin 500 mg tablet 500 mg PO TID #21 tabs 04/20/23 insulin glargine 100 unit/mL (3 15 unit (0.15 mL) subcut QAM #15 mL 04/20/23 mL) subcutaneous pen (Lantus Solostar U-100 Insulin) Allergies Allergy/AdvReac Type Severity Reaction Status Date / Time adhesive tape Allergy Mild Rash Verified 04/17/23 13:35 diclofenac Allergy Unknown Verified 04/17/23 13:35 aspartame Allergy Verified 04/17/23 13:35 beclomethasone Allergy Verified 04/17/23 13:35 bisacodyl Allergy Verified 04/17/23 13:35 dexamethasone Allergy Verified 04/17/23 13:35 doxycycline Allergy Verified 04/17/23 13:35 erythromycin base Allergy Verified 04/17/23 13:35 gabapentin Allergy Verified 04/17/23 13:35 hydrochlorothiazide Allergy Verified 04/17/23 13:35 lactase [From Dairy Aid] Allergy Verified 04/17/23 13:35 meclizine Allergy Verified 04/17/23 13:35 metformin Allergy Verified 04/17/23 13:35 metoclopramide Allergy Verified 04/17/23 13:35 nabumetone [From Relafen] Allergy Verified 04/17/23 13:35 propranolol Allergy Verified 04/17/23 13:35 raloxifene Allergy Verified 04/17/23 13:35 ramipril Allergy Verified 04/17/23 13:35 tobramycin Allergy Verified 04/17/23 13:35 venlafaxine Allergy Verified 04/17/23 13:35 Review of Systems Status of ROS: Reports: 6 or more systems reviewed and unremarkable except as noted in History and below PFSH PFS Medical History Ileostomy in place ?Z93.2 - Ileostomy status (ICD-10) Unsteady gait ?R26.81 - Unsteadiness on feet (ICD-10) Polypharmacy ?Z79.899 - Other alf (current) drug therapy (ICD-10) Osteoporosis ?M81.0 - Age-related osteoporosis without current pathological fracture (ICD- 10) Ketoacidosis due to diabetes mellitus (08/03/13) ?E11.10 - Type 2 diabetes mellitus with ketoacidosis without coma (ICD-10) Irritable bowel syndrome ?K58.9 - Irritable bowel syndrome without diarrhea (ICD-10) Falls (03/31/12) ?W19.XXXA - Unspecified fall, initial encounter (ICD-10) Epistaxis ?R04.0 - Epistaxis (ICD-10) Diverticulitis of large intestine ?K57.32 - Diverticulitis of large intestine without perforation or abscess without bleeding (ICD-10) Diabetic gastroparesis (08/03/13) ?E11.43 - Type 2 diabetes mellitus with diabetic autonomic (poly)neuropathy (ICD-10) ?K31.84 - Gastroparesis (ICD-10) Coronary artery disease ?I25.10 - Atherosclerotic heart disease of [place] coronary artery without angina pectoris (ICD-10) Concussion (03/29/12) ?S06.0XAA - Concussion with loss of consciousness status unknown, initial encounter (ICD-10) Compression fracture of L2 vertebra with delayed healing ?S32.020G - Wedge compression fracture of second lumbar vertebra, subsequent encounter for fracture with delayed healing (ICD-10) Closed head injury ?S09.90XA - Unspecified injury of head, initial encounter (ICD-10) Closed fracture of superior ramus of right pubis ?S32.511A - Fracture of superior rim of right pubis, initial encounter for closed fracture (ICD-10) Closed fracture of left side of symphysis pubis ?S32.592A - Other specified fracture of left pubis, initial encounter for closed fracture (ICD-10) Closed fracture of left inferior pubic ramus ?S32.592A - Other specified fracture of left pubis, initial encounter for closed fracture (ICD-10) Chronic constipation (07/02/13) ?K59.09 - Other constipation (ICD-10) Anxiety disorder ?F41.9 - Anxiety disorder, unspecified (ICD-10) 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 (ICD-10) Seizure ?R56.9 - Unspecified convulsions (ICD-10) Hypothyroidism ?E03.9 - Hypothyroidism, unspecified (ICD-10) Hyponatremia (12/22/11) ?E87.1 - Hypo-osmolality and hyponatremia (ICD-10) Hyperkalemia (12/22/11) ?E87.5 - Hyperkalemia (ICD-10) Gastroesophageal reflux disease ?K21.9 - Gastro-esophageal reflux disease without esophagitis (ICD-10) Chronic pain ?G89.29 - Other chronic pain (ICD-10) Asthma ?J45.909 - Unspecified asthma, uncomplicated (ICD-10) Acute adrenal crisis ?E27.2 - Addisonian crisis (ICD-10) POLST (Physician Orders for Life-Sustaining Treatment) ?Z78.9 - Other specified health status (ICD-10) Health care directive on file ?Z78.9 - Other specified health status (ICD-10) High output ileostomy ?R19.8 - Other specified symptoms and signs involving the digestive system and abdomen (ICD-10) ?Z93.2 - Ileostomy status (ICD-10) Hyperkalemia ?E87.5 - Hyperkalemia (ICD-10) Abnormal liver enzymes ?R74.8 - Abnormal levels of other serum enzymes (ICD-10) Dementia ?F03.90 - Unspecified dementia without behavioral disturbance (ICD-10) Cataract ?H26.9 - Unspecified cataract (ICD-10) Dorsalgia ?M54.9 - Dorsalgia, unspecified (ICD-10) Hyperlipidemia ?E78.5 - Hyperlipidemia, unspecified (ICD-10) Unspecified dementia without behavioral disturbance ?F03.90 - Unspecified dementia without behavioral disturbance (ICD-10) Postmenopausal atrophic vaginitis ?N95.2 - Postmenopausal atrophic vaginitis (ICD-10) Convulsions ?R56.9 - Unspecified convulsions (ICD-10) Pressure ulcer of sacral region, unstageable ?L89.150 - Pressure ulcer of sacral region, unstageable (ICD-10) Constipation ?K59.00 - Constipation, unspecified (ICD-10) Primary hypertension ?I10 - Essential (primary) hypertension (ICD-10) Vertebral fracture Osteoarthritis ?M19.90 - Unspecified osteoarthritis, unspecified site (ICD-10) Chronic kidney disease (CKD) stage G3a/A1, moderately decreased glomerular filtration rate (GFR) between 45-59 mL/min/1.73 square meter and albuminuria creatinine ratio less than 30 mg/g ?N18.31 - Chronic kidney disease, stage 3a (ICD-10) 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 - Atherosclerotic heart disease of [place] coronary artery without angina pectoris (ICD-10) GERD (gastroesophageal reflux disease) ?K21.9 - Gastro-esophageal reflux disease without esophagitis (ICD-10) Anxiety ?F41.9 - Anxiety disorder, unspecified (ICD-10) Pelvic fracture ?S32.9XXA - Fracture of unspecified parts of lumbosacral spine and pelvis, initial encounter for closed fracture (ICD-10) Primary adrenocortical insufficiency ?E27.1 - Primary adrenocortical insufficiency (ICD-10) Diabetes mellitus type 1 ?E10.9 - Type 1 diabetes mellitus without complications (ICD-10) Surgical History S/P small bowel resection ?Z90.49 - Acquired absence of other specified parts of digestive tract (ICD- 10) H/O angioplasty ?Z98.62 - Peripheral vascular angioplasty status (ICD-10) H/O mastoidectomy ?Z90.89 - Acquired absence of other organs (ICD-10) S/P laparoscopic cholecystectomy ?Z90.49 - Acquired absence of other specified parts of digestive tract (ICD-10) S/P appendectomy ?Z90.49 - Acquired absence of other specified parts of digestive tract (ICD- 10) No significant past surgical history Social History Narrative: Patient lives in a fdc. What is your current living situation?: I presently have a place to live Problems where you live: no known problems Problems where you live details: none In the past 12 months, utilities in danger of being shut off: no In past 12 months, lack of transportation kept you from medical appts, meetings, work, or getting things needed for daily living: no In the past 12 mos, have been you worried that your food would run out before you had money to buy more?: never true In the past 12 mos, the food you bought just didn't last and you didn't have money to buy more?: never true Highest level of school completed/degree received: Master's degree Smoking Status: Never smoker Do you use any of these nicotine containing products: None Second hand tobacco smoke exposure: No How often do you have a drink containing alcohol: never How often do you have six or more drinks on one occasion: Never AUDIT-C Alcohol total score: 0 Non-prescribed substance use: denies use Caffeine: Yes (diet coke) How often does anyone, including family, friends and others, physically hurt you : never How often does anyone, including family, friends and others, insult or talk down to you: never How often does anyone, including family, friends and others, threaten you with harm: never How often does anyone, including family, friends and others, scream or curse at you: never service: No Exam Narrative: Exam Narrative: Vital signs as noted above. In general, an alert, nontoxic elderly woman. Breathing easily. Head: Normocephalic, atraumatic. Eyes: Pupils are equal reactive. Extraocular movements are full. Conjunctivae are normal. ENT: Mucous membranes are moist. Throat is normal. Neck: Supple without lymphadenopathy. Heart: Regular rate and rhythm. No murmur or rub. Lungs: Clear bilaterally. No increased work of breathing, crackles or wheezes. Abdomen: Soft and nontender. Ostomy, no bloody or melanotic output. Extremities: Well perfused. No edema. No calf tenderness. Pulses intact. Neurologic: Patient is alert and oriented to person and place. Speech is fluent. Face is symmetric. Moves all extremities equally. Affect: Normal. Skin: Warm and dry. Well perfused. Const: Vital Signs, click to edit/add: Vital Signs - 24 hr 09/18/23 15:42 09/18/23 15:43 09/18/23 15:45 Pulse Rate 59 L 62 61 Blood Pressure 110/57 L Pulse Oximetry 97 97 96 09/18/23 16:00 09/18/23 16:01 09/18/23 16:15 Pulse Rate 60 61 64 Blood Pressure 100/54 L Pulse Oximetry 96 95 97 09/18/23 16:30 09/18/23 16:32 09/18/23 16:45 Pulse Rate 60 52 L 62 Blood Pressure 113/62 Pulse Oximetry 97 95 98 09/18/23 17:00 09/18/23 17:01 09/18/23 17:31 Pulse Rate 66 70 Blood Pressure 100/69 83/60 L Pulse Oximetry 87 L 97 09/18/23 17:33 09/18/23 17:45 09/18/23 17:49 Pulse Rate 55 L Blood Pressure 86/51 L 95/52 L Pulse Oximetry 96 09/18/23 18:09 09/18/23 18:32 09/18/23 18:32 Pulse Rate 49 L 53 L Blood Pressure 109/71 108/59 L Pulse Oximetry 95 95 Documenting provider has reviewed patient's vital signs: yes Course Course ED Course: Will give some IV fluids here, evaluate for possible infection, metabolic derangement, cardiac abnormalities. She has a history of chronic AFib, is rate controlled here. She says that she thinks she does take a blood thinner al though I do not see 1 on her list. 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 She was given a bump of hydrocortisone on [place] when her sodium was noted to be low. Patient is maintained on the monitor here. She had an EKG which showed atrial fibrillation with a controlled ventricular rate. I do not see evidence of prior history of atrial fibrillation, nor anticoagulation. Some T-waves look generous on the EKG although it is not diffuse. She is given a L of normal saline. Initial labs showed a normal white blood cell count and hemoglobin, electrolytes came back showing a sodium of 118 and a potassium of 7. CO2 low at 16, gap of 3, BUN of 50 and creatinine of 1.8. Lactate is normal 1.5, LFTs show mildly elevated transaminases of an AST of 80 for an ALT of 115, alk-phos is 175. Bilirubin is normal however. CRP is less than 0.5. TSH is pending. COVID is negative. Point of care troponin is 0.01. Due to the markedly elevated potas sium level and somewhat peaked appearing T-waves on her initial EKG, I did give her insulin 10 units, amp of D50, 40 mg of Lasix as well as calcium gluconate. Sodium will need to be addressed as well although in the emergency department she has only had normal saline. Did hang an extra 500 mL of normal saline as well as 100 mg of hydrocortisone IV. Blood pressures have been slightly low since getting settled in here, she had 1 systolic pressure of 86 otherwise it has been 95-105 systolic. Case was discussed with Dr. Rodriguez, patient will be admitted to the hospitalist service. Complains of headache, will give some Tylenol. Vital Signs Vital signs: Initial Vital Signs Pulse Rate 59 L 09/18/23 15:42 Blood Pressure 110/57 L 09/18/23 15:42 Blood Pressure Mean 74 09/18/23 15:42 Pulse Oximetry 97 09/18/23 15:42 Vital Signs Pulse Rate 59 L 09/18/23 15:42 Blood Pressure 110/57 L 09/18/23 15:42 Pulse Oximetry 97 09/18/23 15:42 Pulse Rate 53 L 09/18/23 18:32 Blood Pressure 108/59 L 09/18/23 18:32 Pulse Oximetry 95 09/18/23 18:32 Medications Administered Medications: Discontinued Medications Generic Name Dose Route Start Last Admin Trade Name Freq PRN Reason Stop Dose Admin Acetaminophen 1,000 mg 09/18/23 17:54 09/18/23 18:07 Acetaminophen 500 Mg Tablet PO 09/18/23 17:55 1,000 mg ONCE ONE Administration Dextrose 25 gm 09/18/23 16:56 09/18/23 17:45 Dextrose 50 % Syringe IVP 09/18/23 16:57 25 gm ONCE ONE Administration Furosemide 40 mg 09/18/23 16:56 09/18/23 17:10 Furosemide 10 Mg/Ml Inj IVP 09/18/23 16:57 40 mg ONCE ONE Administration Hydrocortisone Sodium Succinate 100 mg 09/18/23 16:56 09/18/23 17:45 Hydrocortisone Sod Succinate 50 Mg/Ml Inj IVP 09/18/23 16:57 100 mg ONCE ONE Administration Sodium Chloride 1,000 mls @ 1,000 mls/hr 09/18/23 16:00 09/18/23 16:30 0.9 % Sodium Chloride 1000 Ml IV 09/18/23 16:59 1,000 mls/hr .Q1H KRANTHI Administration Calcium Gluconate/Sodium Chloride 1,000 mg in 50 mls @ 100 mls/hr 09/18/23 17:00 09/18/23 17:45 Calcium Gluc 1,000mg/50 Ml IVPB 09/18/23 17:29 100 mls/hr ONCE ONE Administration Insulin Human Regular 10 unit 09/18/23 16:56 09/18/23 17:45 Insulin Regular 100 Unit/Ml Inj SUBCUT 09/18/23 16:57 10 unit ONCE ONE Administration Ondansetron HCl 4 mg 09/18/23 15:57 09/18/23 16:30 Ondansetron 2 Mg/Ml Inj IVP 09/18/23 15:58 4 mg ONCE ONE Administration Medical Decision Making Lab Data Labs: Lab Results 09/18/23 09/18/23 09/18/23 Range/Units 15:55 15:55 15:55 WBC 7.35 (4.50-11.00) K/uL RBC 4.39 (4.00-5.20) m/uL Hgb 12.5 (12.0-16.0) gm/dL Hct 39.3 (33.0-51.0) % MCV 90 (80-100) fL MCH 29 (26-34) pg MCHC 32 (32-36) gm/dL RDW Coeff of Sharmaine 14.1 (11.5-15.5) % Plt Count 360 (140-440) K/uL Neut % (Auto) 62.3 (42.0-72.0) % Lymph % (Auto) 26.9 (20-44) % Union % (Auto) 9.0 (0.0-11.0) % Eos % (Auto) 1.2 (0.0-7.0) % Baso % (Auto) 0.5 (0.0-3.0) % Neut # (Auto) 4.57 (1.7-7.0) K/uL Lymph # (Auto) 1.98 (0.90-2.90) K/uL Union # (Auto) 0.70 (0.00-0.90) K/UL Eos # (Auto) 0.09 (0.00-0.50) K/uL Baso # (Auto) 0.04 (0.00-0.30) K/uL Abs Immat Gran (auto) 0.01 (0.00-0.30) K/uL Imm/Tot Granulo (auto) 0.1 % INR 0.97 (0.91-1.10) Sodium 118 L* (135-149) mmol/L Potassium 7.0 H* (3.6-5.1) mmol/L Chloride 99 (96-114) mmol/L Carbon Dioxide 16 L (20-32) mmol/L Anion Gap 3 L (7-15) mEq/L BUN 50 H (7-30) mg/dL Creatinine 1.8 H (0.5-1.5) mg/dL Estimated Creat Clear 15.26 Estimated GFR 27 ml/min Glucose 279 H (60-115) mg/dL Lactate 1.5 (0.5-1.9) mmol/L Calcium 9.2 (8.4-10.6) mg/dL Magnesium 2.4 Cancelled (1.5-2.6) mg/dL Total Bilirubin 0.4 Cancelled (0.1-1.5) mg/dL Direct Bilirubin 0.0 (0.0-0.5) mg/dL AST (12-35) U/L ALT (4-35) U/L Alkaline Phosphatase (40-150) U/L C-Reactive Protein (0.5-1.0) mg/dL Total Protein (6.0-8.3) g/dL Albumin (3.3-5.0) g/dL TSH (0.270-4.200) uIU/mL POC Troponin I (0.01-0.04) ng/ml 09/18/23 09/18/23 09/18/23 Range/Units 15:55 15:55 15:55 WBC (4.50-11.00) K/uL RBC (4.00-5.20) m/uL Hgb (12.0-16.0) gm/dL Hct (33.0-51.0) % MCV (80-100) fL MCH (26-34) pg MCHC (32-36) gm/dL RDW Coeff of Sharmaine (11.5-15.5) % Plt Count (140-440) K/uL Neut % (Auto) (42.0-72.0) % Lymph % (Auto) (20-44) % Union % (Auto) (0.0-11.0) % Eos % (Auto) (0.0-7.0) % Baso % (Auto) (0.0-3.0) % Neut # (Auto) (1.7-7.0) K/uL Lymph # (Auto) (0.90-2.90) K/uL Union # (Auto) (0.00-0.90) K/UL Eos # (Auto) (0.00-0.50) K/uL Baso # (Auto) (0.00-0.30) K/uL Abs Immat Gran (auto) (0.00-0.30) K/uL Imm/Tot Granulo (auto) % INR (0.91-1.10) Sodium (135-149) mmol/L Potassium (3.6-5.1) mmol/L Chloride (96-114) mmol/L Carbon Dioxide (20-32) mmol/L Anion Gap (7-15) mEq/L BUN (7-30) mg/dL Creatinine (0.5-1.5) mg/dL Estimated Creat Clear Estimated GFR ml/min Glucose (60-115) mg/dL Lactate (0.5-1.9) mmol/L Calcium (8.4-10.6) mg/dL Magnesium (1.5-2.6) mg/dL Total Bilirubin (0.1-1.5) mg/dL Direct Bilirubin Cancelled (0.0-0.5) mg/dL AST 84 H Cancelled (12-35) U/L ALT 115 H Cancelled (4-35) U/L Alkaline Phosphatase 175 H (40-150) U/L C-Reactive Protein (0.5-1.0) mg/dL Total Protein (6.0-8.3) g/dL Albumin (3.3-5.0) g/dL TSH (0.270-4.200) uIU/mL POC Troponin I (0.01-0.04) ng/ml 09/18/23 09/18/23 09/18/23 Range/Units 15:55 15:55 15:55 WBC (4.50-11.00) K/uL RBC (4.00-5.20) m/uL Hgb (12.0-16.0) gm/dL Hct (33.0-51.0) % MCV (80-100) fL MCH (26-34) pg MCHC (32-36) gm/dL RDW Coeff of Sharmaine (11.5-15.5) % Plt Count (140-440) K/uL Neut % (Auto) (42.0-72.0) % Lymph % (Auto) (20-44) % Union % (Auto) (0.0-11.0) % Eos % (Auto) (0.0-7.0) % Baso % (Auto) (0.0-3.0) % Neut # (Auto) (1.7-7.0) K/uL Lymph # (Auto) (0.90-2.90) K/uL Union # (Auto) (0.00-0.90) K/UL Eos # (Auto) (0.00-0.50) K/uL Baso # (Auto) (0.00-0.30) K/uL Abs Immat Gran (auto) (0.00-0.30) K/uL Imm/Tot Granulo (auto) % INR (0.91-1.10) Sodium (135-149) mmol/L Potassium (3.6-5.1) mmol/L Chloride (96-114) mmol/L Carbon Dioxide (20-32) mmol/L Anion Gap (7-15) mEq/L BUN (7-30) mg/dL Creatinine (0.5-1.5) mg/dL Estimated Creat Clear Estimated GFR ml/min Glucose (60-115) mg/dL Lactate (0.5-1.9) mmol/L Calcium (8.4-10.6) mg/dL Magnesium (1.5-2.6) mg/dL Total Bilirubin (0.1-1.5) mg/dL Direct Bilirubin (0.0-0.5) mg/dL AST (12-35) U/L ALT (4-35) U/L Alkaline Phosphatase Cancelled (40-150) U/L C-Reactive Protein < 0.5 L (0.5-1.0) mg/dL Total Protein 6.6 Cancelled (6.0-8.3) g/dL Albumin 3.9 Cancelled (3.3-5.0) g/dL TSH 8.440 H (0.270-4.200) uIU/mL POC Troponin I (0.01-0.04) ng/ml 09/18/23 Range/Units 15:58 WBC (4.50-11.00) K/uL RBC (4.00-5.20) m/uL Hgb (12.0-16.0) gm/dL Hct (33.0-51.0) % MCV (80-100) fL MCH (26-34) pg MCHC (32-36) gm/dL RDW Coeff of Sharmaine (11.5-15.5) % Plt Count (140-440) K/uL Neut % (Auto) (42.0-72.0) % Lymph % (Auto) (20-44) % Union % (Auto) (0.0-11.0) % Eos % (Auto) (0.0-7.0) % Baso % (Auto) (0.0-3.0) % Neut # (Auto) (1.7-7.0) K/uL Lymph # (Auto) (0.90-2.90) K/uL [place] # (Auto) (0.00-0.90) K/UL Eos # (Auto) (0.00-0.50) K/uL Baso # (Auto) (0.00-0.30) K/uL Abs Immat Gran (auto) (0.00-0.30) K/uL Imm/Tot Granulo (auto) % INR (0.91-1.10) Sodium (135-149) mmol/L Potassium (3.6-5.1) mmol/L Chloride (96-114) mmol/L Carbon Dioxide (20-32) mmol/L Anion Gap (7-15) mEq/L BUN (7-30) mg/dL Creatinine (0.5-1.5) mg/dL Estimated Creat Clear Estimated GFR ml/min Glucose (60-115) mg/dL Lactate (0.5-1.9) mmol/L Calcium (8.4-10.6) mg/dL Magnesium (1.5-2.6) mg/dL Total Bilirubin (0.1-1.5) mg/dL Direct Bilirubin (0.0-0.5) mg/dL AST (12-35) U/L ALT (4-35) U/L Alkaline Phosphatase (40-150) U/L C-Reactive Protein (0.5-1.0) mg/dL Total Protein (6.0-8.3) g/dL Albumin (3.3-5.0) g/dL TSH (0.270-4.200) uIU/mL POC Troponin I 0.01 (0.01-0.04) ng/ml
[2023-09-18 16:11] LABS: Basophils Absolute Auto 0.04 K/uL (0.00-0.30); Basophils Percent Auto 0.5 % (0.0-3.0); Eosinophils Absolute Auto 0.09 K/uL (0.00-0.50); Eosinophils Percent Auto 1.2 % (0.0-7.0); Hematocrit 39.3 % (33.0-51.0); Hemoglobin* 12.5 gm/dL (12.0-16.0); Immature Granulocytes Abs Auto 0.01 K/uL (0.00-0.30); Immature Granulocytes Pct Auto 0.1 %; Lymphocytes Absolute Auto 1.98 K/uL (0.90-2.90); Lymphocytes Percent Auto 26.9 % (20-44); Mean Corpuscular HGB Conc 32 gm/dL (32-36); Mean Corpuscular Hemoglobin 29 pg (26-34); Mean Corpuscular Volume 90 fL (80-100); Neutrophils Absolute Auto 4.57 K/uL (1.7-7.0); Neutrophils Percent Auto 62.3 % (42.0-72.0); Platelet Count* 360 K/uL (140-440); RDW Coefficient of Variation % 14.1 % (11.5-15.5); Red Blood Count 4.39 m/uL (4.00-5.20); White Blood Count* 7.35 K/uL (4.50-11.00)
[2023-09-18 16:12] LABS: Lactate Sepsis w/Reflex* 1.5 mmol/L (0.5-1.9)
[2023-09-18 16:17] LABS: Slide Review Reflex No
[2023-09-18 16:29] LABS: Troponin, Point-of-Care* 0.01 ng/ml (0.01-0.04)
[2023-09-18] MEDS: ONDANSETRON 2 MG/ML inj 4 MG IVP (16:30)
[2023-09-18] MEDS: 0.9 % SODIUM CHLORIDE 1000 ml 1,000 ML IV (16:30)
[2023-09-18 16:41] LABS: Albumin* 3.9 g/dL (3.3-5.0); Chloride* 99 mmol/L (96-114); INR 0.97 (0.91-1.10); Prothrombin Time 13.4 Seconds
[2023-09-18 16:44] LABS: Creatinine* 1.8 mg/dL (0.5-1.5); Est. Creatinine Clearance* 15.26; Estimated Glomerular Filt Rate 27 ml/min
[2023-09-18 16:45] LABS: Alanine Aminotransferase* 115 U/L (4-35); Alkaline Phosphatase* 175 U/L (40-150); Anion Gap 3 mEq/L (7-15); Aspartate Amino Transferase* 84 U/L (12-35); Bilirubin Total* 0.4 mg/dL (0.1-1.5); Blood Urea Nitrogen* 50 mg/dL (7-30); Calcium* 9.2 mg/dL (8.4-10.6); Carbon Dioxide* 16 mmol/L (20-32); Glucose* 279 mg/dL (60-115); Magnesium* 2.4 mg/dL (1.5-2.6); Total Protein* 6.6 g/dL (6.0-8.3)
[2023-09-18 16:56] LABS: C Reactive Protein* < 0.5 mg/dL (0.5-1.0); Sodium* 118 mmol/L (135-149)
[2023-09-18 17:03] LABS: PCR FLU A Negative PCR FLU A (Negative); PCR FLU B Negative PCR FLU B (Negative); PCR RSV Negative PCR RSV (Negative)
[2023-09-18 17:04] LABS: SARS PCR* Negative SARS-CoV-2 (Negative)
[2023-09-18] MEDS: FUROSEMIDE 10 MG/ML inj 40 MG IVP (17:10)
[2023-09-18] MEDS: CALCIUM GLUC 1,000MG/50 ML 1,000 MG/50 ML BAG 100 MG IVPB (17:45)
[2023-09-18] MEDS: DEXTROSE 50 % SYRINGE IVP (17:45)
[2023-09-18] MEDS: HYDROCORTISONE SOD SUCCINATE 50 MG/ML inj 100 MG IVP (17:45)
[2023-09-18] MEDS: ACETAMINOPHEN 500 MG TABLET 1000 MG PO (18:07)
[2023-09-18 18:28] LABS: Appearance Urine Clear (Clear); Bilirubin Urine Negative (Negative); Blood Urine Negative (Negative); Color Urine Yellow (Yellow); Glucose Urine Trace (Negative); Ketones Urine Negative (Negative); Leukocyte Esterase Urine 1+ (Negative); Nitrite Urine Negative (Negative); Protein Urine Negative (Negative); Specific Gravity Urine 1.015 (1.000-1.030); Urobilinogen Urine 0.2 (0.2-1.0)
[2023-09-18 18:48] LABS: Bacteria Urine Moderate; Other Sediment Urine Many; RBC Urine 0-2 (0-2); Squamous Epithelial Cell Urine Moderate (None-Few); WBC Urine 25-50 (0-5)
[2023-09-18] MEDS: 5 % DEXTROSE/0.9% SOD CHLORIDE 1,000 ML 250 ML IV (18:53)
[2023-09-18 19:06] LABS: Free T4 Free Thyroxine* 1.23 ng/dL (0.70-1.85)
--- NOTE | 2023-09-18 20:26 | PM.IMHP1 ---
Hospitalist- H&P: HPI History of Present Illness Date Seen: 09/18/23 Chief complaint: vomiting Narrative: Shira Stauffer is a 88 year old female with type 1 diabetes, Taos's disease, type 4 renal tubular acidosis, stage 4 kidney disease, coronary artery disease, hypothyroidism, high ileostomy output admitted to the hospital with a couple day history of dizziness weakness and today vomiting. Nonbloody emesis. She is at [address] [place] [address] where laboratory studies showed hyponatremia and hyperkalemia. She had her hydrocortisone increased to address this yesterday. Her blood sugar has been somewhat elevated at 215 today. She was hospitalized at [facility] from August 31 to September 04. Shock was that diagnosis. She was briefly on pressors. She received IV hydrocortisone and recovered quickly. She had acidosis and was treated with intravenous sodium bicarb as well. No definite identified source of sepsis but she did have a possible UTI at that time. She is resident of [facility] were her medications are administered to her. She is not aware of any other changes in her medicine other than the report that her hydrocortisone was increased yesterday. There have been some problems with her blood sugar and insulin has been adjusted. I urine a half ago she was hospitalized at [place] with septic shock. 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 After that she had some problems with high output of her ileostomy. Review of Systems Narrative: Patient reports no other concerns except for details outlined above. [facility] Medical History (Updated 09/18/23 @ 22:40 by Adriel Rodriguez MD) Atrial fibrillation ?I48.91 - Unspecified atrial fibrillation (ICD-10) Diabetes mellitus type 1 (12/22/11) ?E10.9 - Type 1 diabetes mellitus without complications (ICD-10) Renal tubular acidosis, type 4 ?N25.89 - Other disorders resulting from impaired renal tubular function (ICD-10) Ileostomy in place ?Z93.2 - Ileostomy status (ICD-10) Unsteady gait ?R26.81 - Unsteadiness on feet (ICD-10) Polypharmacy ?Z79.899 - Other mcfp (current) drug therapy (ICD-10) Osteoporosis ?M81.0 - Age-related osteoporosis without current pathological fracture (ICD-10) Ketoacidosis due to diabetes mellitus (08/03/13) ?E11.10 - Type 2 diabetes mellitus with ketoacidosis without coma (ICD-10) Irritable bowel syndrome ?K58.9 - Irritable bowel syndrome without diarrhea (ICD-10) Falls (03/31/12) ?W19.XXXA - Unspecified fall, initial encounter (ICD-10) Epistaxis ?R04.0 - Epistaxis (ICD-10) Diverticulitis of large intestine ?K57.32 - Diverticulitis of large intestine without perforation or abscess without bleeding (ICD-10) Diabetic gastroparesis (08/03/13) ?E11.43 - Type 2 diabetes mellitus with diabetic autonomic (poly)neuropathy (ICD-10) ?K31.84 - Gastroparesis (ICD-10) Coronary artery disease ?I25.10 - Atherosclerotic heart disease of [place] coronary artery without angina pectoris (ICD-10) Concussion (03/29/12) ?S06.0XAA - Concussion with loss of consciousness status unknown, initial encounter (ICD-10) Compression fracture of L2 vertebra with delayed healing ?S32.020G - Wedge compression fracture of second lumbar vertebra, subsequent encounter for fracture with delayed healing (ICD-10) Closed head injury ?S09.90XA - Unspecified injury of head, initial encounter (ICD-10) Closed fracture of superior ramus of right pubis ?S32.511A - Fracture of superior rim of right pubis, initial encounter for closed fracture (ICD-10) Closed fracture of left side of symphysis pubis ?S32.592A - Other specified fracture of left pubis, initial encounter for closed fracture (ICD-10) Closed fracture of left inferior pubic ramus ?S32.592A - Other specified fracture of left pubis, initial encounter for closed fracture (ICD-10) Chronic constipation (07/02/13) ?K59.09 - Other constipation (ICD-10) Anxiety disorder ?F41.9 - Anxiety disorder, unspecified (ICD-10) 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 (ICD-10) Seizure ?R56.9 - Unspecified convulsions (ICD-10) Hypothyroidism ?E03.9 - Hypothyroidism, unspecified (ICD-10) Hyponatremia (12/22/11) ?E87.1 - Hypo-osmolality and hyponatremia (ICD-10) Hyperkalemia (12/22/11) ?E87.5 - Hyperkalemia (ICD-10) Gastroesophageal reflux disease ?K21.9 - Gastro-esophageal reflux disease without esophagitis (ICD-10) Chronic pain ?G89.29 - Other chronic pain (ICD-10) Asthma ?J45.909 - Unspecified asthma, uncomplicated (ICD-10) Acute adrenal crisis ?E27.2 - Addisonian crisis (ICD-10) POLST (Physician Orders for Life-Sustaining Treatment) ?Z78.9 - Other specified health status (ICD-10) Health care directive on file ?Z78.9 - Other specified health status (ICD-10) High output ileostomy ?R19.8 - Other specified symptoms and signs involving the digestive system and abdomen (ICD-10) ?Z93.2 - Ileostomy status (ICD-10) Hyperkalemia ?E87.5 - Hyperkalemia (ICD-10) Abnormal liver enzymes ?R74.8 - Abnormal levels of other serum enzymes (ICD-10) Dementia ?F03.90 - Unspecified dementia without behavioral disturbance (ICD-10) Cataract ?H26.9 - Unspecified cataract (ICD-10) Dorsalgia ?M54.9 - Dorsalgia, unspecified (ICD-10) Hyperlipidemia ?E78.5 - Hyperlipidemia, unspecified (ICD-10) Unspecified dementia without behavioral disturbance ?F03.90 - Unspecified dementia without behavioral disturbance (ICD-10) Postmenopausal atrophic vaginitis ?N95.2 - Postmenopausal atrophic vaginitis (ICD-10) Convulsions ?R56.9 - Unspecified convulsions (ICD-10) Pressure ulcer of sacral region, unstageable ?L89.150 - Pressure ulcer of sacral region, unstageable (ICD-10) Constipation ?K59.00 - Constipation, unspecified (ICD-10) Primary hypertension ?I10 - Essential (primary) hypertension (ICD-10) Vertebral fracture Osteoarthritis ?M19.90 - Unspecified osteoarthritis, unspecified site (ICD-10) Chronic kidney disease (CKD) stage G3a/A1, moderately decreased glomerular filtration rate (GFR) between 45-59 mL/min/1.73 square meter and albuminuria creatinine ratio less than 30 mg/g ?N18.31 - Chronic kidney disease, stage 3a (ICD-10) 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 - Atherosclerotic heart disease of [place] coronary artery without angina pectoris (ICD-10) GERD (gastroesophageal reflux disease) ?K21.9 - Gastro-esophageal reflux disease without esophagitis (ICD-10) Anxiety ?F41.9 - Anxiety disorder, unspecified (ICD-10) Pelvic fracture ?S32.9XXA - Fracture of unspecified parts of lumbosacral spine and pelvis, initial encounter for closed fracture (ICD-10) Primary adrenocortical insufficiency ?E27.1 - Primary adrenocortical insufficiency (ICD-10) Diabetes mellitus type 1 ?E10.9 - Type 1 diabetes mellitus without complications (ICD-10) Surgical History S/P small bowel resection ?Z90.49 - Acquired absence of other specified parts of digestive tract (ICD-10) H/O angioplasty ?Z98.62 - Peripheral vascular angioplasty status (ICD-10) H/O mastoidectomy ?Z90.89 - Acquired absence of other organs (ICD-10) S/P laparoscopic cholecystectomy ?Z90.49 - Acquired absence of other specified parts of digestive tract (ICD-10) S/P appendectomy ?Z90.49 - Acquired absence of other specified parts of digestive tract (ICD-10) No significant past surgical history Social History (Updated 09/18/23 @ 22:30 by Adriel Rodriguez MD) Narrative: Patient lives in a long-term. Code status DNR DNI What is your current living situation?: I presently have a place to live Problems where you live: no known problems Problems where you live details: none In the past 12 months, utilities in danger of being shut off: no In past 12 months, lack of transportation kept you from medical appts, meetings, work, or getting things needed for daily living: no In the past 12 mos, have been you worried that your food would run out before you had money to buy more?: never true In the past 12 mos, the food you bought just didn't last and you didn't have money to buy more?: never true Highest level of school completed/degree received: Master's degree Smoking Status: Never smoker Do you use any of these nicotine containing products: None Second hand tobacco smoke exposure: No How often do you have a drink containing alcohol: never How often do you have six or more drinks on one occasion: Never AUDIT-C Alcohol total score: 0 Non-prescribed substance use: denies use Caffeine: Yes (diet coke) How often does anyone, including family, friends and others, physically hurt you: never How often does anyone, including family, friends and others, insult or talk down to you: never How often does anyone, including family, friends and others, threaten you with harm: never How often does anyone, including family, friends and others, scream or curse at you: never service: No Meds Home Medications and Allergies Home Medications Medication Instructions Recorded Confirmed Type cholecalciferol (vitamin D3) 50 4,000 unit PO HS 05/02/22 04/17/23 History mcg (2,000 unit) tablet coenzyme Q10 100 mg capsule 100 mg PO HS 05/02/22 04/17/23 History estradiol 0.01% (0.1 mg/gram) 1 appful vaginal MOTH@09 05/02/22 04/17/23 History vaginal cream hydrocortisone 5 mg tablet 7.5 - 15 mg PO BID 05/02/22 04/17/23 History insulin lispro 100 unit/mL 5 unit subcut TIDWM 05/02/22 04/17/23 History subcutaneous pen (Humalog KwikPen (U-100) Insulin) lactobacillus combination no.4 3 3,000 mmu cells PO DAILY 05/02/22 04/17/23 History billion cell capsule (Probiotic) levothyroxine 75 mcg tablet 75 mcg PO DAILY 05/02/22 04/17/23 History morphine 15 mg tablet,extended 15 mg PO TID 05/02/22 04/17/23 History release multivit-iron 18 mg-folic acid 400 1 tab PO DAILY 05/02/22 04/17/23 History mcg-calcium 500 mg-minerals tablet (Women's One Daily) olopatadine 0.2 % eye drops 1 drp ophthalmic (eye) DAILY 05/02/22 04/17/23 History oxycodone 5 mg tablet 5 mg PO Q6H PRN 05/02/22 04/17/23 History vitamin B complex (Vitamins B 1 cap PO DAILY 05/02/22 04/17/23 History Complex capsule) acetaminophen 500 mg capsule 1,000 mg PO QID PRN 05/28/22 03/27/23 History metoprolol tartrate 25 mg tablet 12.5 mg PO BID 05/28/22 04/17/23 History ondansetron HCl 4 mg tablet 4 mg PO Q6H PRN 05/28/22 04/17/23 History simethicone 80 mg chewable tablet 80 mg PO BID 05/28/22 04/17/23 History aspirin 81 mg chewable tablet 81 mg PO DAILY@1200 03/03/23 04/17/23 History fludrocortisone 0.1 mg tablet 0.1 mg PO DAILY 03/03/23 04/17/23 History furosemide 20 mg tablet 10 mg PO DAILY 03/03/23 04/17/23 History glucose 4 gram chewable tablet 4 g PO Q15M PRN 03/03/23 04/17/23 History (Dex4 Glucose) saliva stimulant comb. no.3 1 applic mucous membrane Q1H PRN 03/03/23 04/17/23 History (Biotene Moisturizing Mouth mucosal spray) sertraline 50 mg tablet 50 mg PO DAILY 03/03/23 04/17/23 History sodium bicarbonate 650 mg tablet 650 mg PO TIDWM 03/03/23 04/17/23 History loperamide 2 mg capsule 4 mg PO QID 03/27/23 04/17/23 History psyllium 1 tbsp PO TID 03/27/23 04/17/23 History Allergies Allergy/AdvReac Type Severity Reaction Status Date / Time adhesive tape Allergy Mild Rash Verified 04/17/23 13:35 diclofenac Allergy Unknown Verified 04/17/23 13:35 beclomethasone Allergy Verified 04/17/23 13:35 bisacodyl Allergy Verified 04/17/23 13:35 dexamethasone Allergy Verified 04/17/23 13:35 doxycycline Allergy Verified 04/17/23 13:35 erythromycin base Allergy Verified 04/17/23 13:35 gabapentin Allergy Verified 04/17/23 13:35 hydrochlorothiazide Allergy Verified 04/17/23 13:35 lactase [From Dairy Aid] Allergy Verified 04/17/23 13:35 meclizine Allergy Verified 04/17/23 13:35 metformin Allergy Verified 04/17/23 13:35 metoclopramide Allergy Verified 04/17/23 13:35 nabumetone [From Relafen] Allergy Verified 04/17/23 13:35 propranolol Allergy Verified 04/17/23 13:35 raloxifene Allergy Verified 04/17/23 13:35 ramipril Allergy Verified 04/17/23 13:35 tobramycin Allergy Verified 04/17/23 13:35 venlafaxine Allergy Verified 04/17/23 13:35 Exam Narrative: Exam Narrative: She is alert and able to give her own history with fair detail. Does not remember details of her hospitalization at [place] however and she does not know her medications. She reports feeling much better by the time I see her after resuscitation in the emergency department fluids and hydrocortisone. Eyes normal. Oropharynx normal. Neck is supple without mass or adenopathy. Respirations are clear to auscultation. Cardiovascular: S1, S2, irregularly irregular. No murmur gallop or rub. Abdomen: Bowel sounds active. Abdomen is soft without tenderness. She has moderate amount of stool in her ileostomy bag which is medium brown without blood. Extremities without edema. Feet and hands are somewhat cool to touch. Const: Vital Signs, click to edit/add: Vital Signs - 24 hr 09/18/23 15:42 09/18/23 15:43 09/18/23 15:45 Pulse Rate 59 L 62 61 Blood Pressure 110/57 L Pulse Oximetry 97 97 96 09/18/23 16:00 09/18/23 16:01 09/18/23 16:15 Pulse Rate 60 61 64 Blood Pressure 100/54 L Pulse Oximetry 96 95 97 09/18/23 16:30 09/18/23 16:32 09/18/23 16:45 Pulse Rate 60 52 L 62 Blood Pressure 113/62 Pulse Oximetry 97 95 98 09/18/23 17:00 09/18/23 17:01 09/18/23 17:31 Pulse Rate 66 70 Blood Pressure 100/69 83/60 L Pulse Oximetry 87 L 97 09/18/23 17:33 09/18/23 17:45 09/18/23 17:49 Pulse Rate 55 L Blood Pressure 86/51 L 95/52 L Pulse Oximetry 96 09/18/23 18:09 09/18/23 18:32 09/18/23 18:32 Pulse Rate 49 L 53 L Blood Pressure 109/71 108/59 L Pulse Oximetry 95 95 Documenting provider has reviewed patient's vital signs: yes Hospitalist - H&P: Result Labs Labs: Short CBC 09/18/23 Range/Units 15:55 WBC 7.35 (4.50-11.00) K/uL Hgb 12.5 (12.0-16.0) gm/dL Hct 39.3 (33.0-51.0) % Plt Count 360 (140-440) K/uL BMP 09/18/23 15:55 Sodium 118 L* Potassium 7.0 H* Chloride 99 Carbon Dioxide 16 L BUN 50 H Creatinine 1.8 H Glucose 279 H Calcium 9.2 Liver Function 09/18/23 09/18/23 09/18/23 Range/Units 15:55 15:55 15:55 Total Bilirubin 0.4 Cancelled (0.1-1.5) mg/dL Direct Bilirubin 0.0 Cancelled (0.0-0.5) mg/dL AST 84 H (12-35) U/L ALT (4-35) U/L Alkaline Phosphatase (40-150) U/L Albumin (3.3-5.0) g/dL 09/18/23 09/18/23 09/18/23 Range/Units 15:55 15:55 15:55 Total Bilirubin (0.1-1.5) mg/dL Direct Bilirubin (0.0-0.5) mg/dL AST Cancelled (12-35) U/L ALT 115 H Cancelled (4-35) U/L Alkaline Phosphatase 175 H Cancelled (40-150) U/L Albumin 3.9 (3.3-5.0) g/dL 09/18/23 Range/Units 15:55 Total Bilirubin (0.1-1.5) mg/dL Direct Bilirubin (0.0-0.5) mg/dL AST (12-35) U/L ALT (4-35) U/L Alkaline Phosphatase (40-150) U/L Albumin Cancelled (3.3-5.0) g/dL Urine 09/18/23 Range/Units 18:35 Urine Color Yellow (Yellow) Urine Appearance Clear (Clear) Urine pH 5.0 (5.0-8.5) Ur Specific [place] 1.015 (1.000-1.030) Urine Protein Negative (Negative) Urine Glucose (UA) Trace A (Negative) ECG Attestation: I personally reviewed and interpreted this ECG as follows: (Patient appears to be in atrial fibrillation.) ECG interpretation date: 09/18/23 Assessment and Plan Assessment and plan (1) Addisonian crisis: Problem comment: Patient presents with hypotension hyperkalemia hyponatremia and vomiting consistent with addisonian or adrenal insufficiency crisis. Cause for this is uncertain. Other medical problems that could contribute to this are new AFib with RVR, high output from ostomy, poor oral intake, urinary tract infection, undiagnosed liver/biliary disease. Continue to evaluate all of these. Stress dose steroids. Status: Acute (2) Ileostomy in place: Problem comment: Monitor for output. Start Lomotil again Status: Acute (3) Elevated liver transaminase level: Problem comment: History of cholecystectomy. Cause of elevated LFTs is unknown Status: Acute (4) Chronic hyponatremia: Problem comment: -her baseline is high 120's. Take sodium bicarb and hydrocortisone for adrenal insufficiency Status: Acute (5) Diabetes mellitus type 1: Problem comment: Due to recent illnesses and unpredictable oral intake heard blood sugars have been difficult to control. Status: Inactive (6) Diabetic gastroparesis: Problem comment: Monitor oral intake Status: Chronic (7) Renal tubular acidosis, type 4: Problem comment: Due to adrenal insufficiency. On sodium bicarb. Status: Acute (8) Atrial fibrillation: Problem comment: New diagnosis. Initiate renal dose Eliquis and rate control. Obtain echo. Status: Acute Plan 88-year-old female with type 1 diabetes, adrenal insufficiency, new AFib, admitted for management of multiple problems outlined above. Will need close monitoring of vitals, electrolytes and evaluation for underlying cause of her current crisis. Total time spent today is 100 minutes, 60 minutes in coordination of care and discussing with patient and other providers evaluation and management of her adrenal insufficiency, diabetes and electrolyte problems
[2023-09-18] MEDS: COENZYME Q10 100 MG CAPSULE PO (21:30)
[2023-09-18] MEDS: SIMETHICONE 80 MG TAB.CHEW PO (21:30)
[2023-09-18] MEDS: PSYLLIUM HUSK (WITH SUGAR) 12 GM PACKET PO (21:30)
[2023-09-18] MEDS: APIXABAN 5 MG TABLET 2.5 MG PO (21:31)
[2023-09-18] MEDS: LOPERAMIDE HCL 2 MG CAPSULE 4 MG PO (21:31)
[2023-09-18] MEDS: INSULIN ASPART 100 UNIT/ML SUBCUT (21:33)
[2023-09-18 23:27] LABS: Lactate* 2.1 mmol/L (0.5-1.9)
[2023-09-18 23:43] LABS: Chloride* 103 mmol/L (96-114)
[2023-09-18] MEDS: 5 % DEXTROSE/0.9% SOD CHLORIDE 1,000 ML 100 ML IV (23:43)
[2023-09-18 23:45] LABS: Creatinine* 1.5 mg/dL (0.5-1.5); Estimated Glomerular Filt Rate 34 ml/min
[2023-09-18 23:46] LABS: Anion Gap 1 mEq/L (7-15); Blood Urea Nitrogen* 43 mg/dL (7-30); Calcium* 8.3 mg/dL (8.4-10.6); Carbon Dioxide* 15 mmol/L (20-32); Glucose* 350 mg/dL (60-115)
[2023-09-18 23:48] LABS: Potassium* 6.3 mmol/L (3.6-5.1); Sodium* 119 mmol/L (135-149)
[2023-09-19 00:05] LABS: HCO3 VBG 18 mmol/L (21-28); PCO2 VBG 43 mmHG (40-50); PO2 VBG < 20.0 mmHG (25-47)
[2023-09-19] MEDS: HYDROCORTISONE SOD SUCCINATE 50 MG/ML inj IVP ×3 (00:59→16:55)
[2023-09-19] MEDS: INSULIN ASPART 100 UNIT/ML SUBCUT ×8 (02:06→21:01)
[2023-09-19 02:41] LABS: C.Difficile Negative (Negative); CDIFFEPI 027 PRESUMPTIVE NEGATIVE (Negative)
[2023-09-19 02:52] VITALS: BP 131/66; PULSE 52; RESP 16; TEMP 36.3; O2SAT 96
--- NOTE | 2023-09-19 04:56 | PC.NURSE ---
Shift note: Pt with colostomy has been on admission with the complaints of weakness and vomiting. Pt is alert and oriented with occasional confusion. Able to ambulate with A1, walker and GB. Stool sample for C.diff sent and came back as negative. Colostomy is active draining greenish gastric content. Blood sugar level has been high tonight and appropriate insulin given per sliding scale.
[2023-09-19 07:00] VITALS: BP 101/57; PULSE 64; PULSE 72; RESP 20; TEMP 36.6; O2SAT 99
[2023-09-19 07:26] LABS: Basophils Absolute Auto 0.01 K/uL (0.00-0.30); Basophils Percent Auto 0.1 % (0.0-3.0); Hematocrit 34.9 % (33.0-51.0); Hemoglobin* 11.2 gm/dL (12.0-16.0); Immature Granulocytes Abs Auto 0.01 K/uL (0.00-0.30); Immature Granulocytes Pct Auto 0.1 %; Lymphocytes Percent Auto 12.9 % (20-44); Mean Corpuscular HGB Conc 32 gm/dL (32-36); Mean Corpuscular Hemoglobin 29 pg (26-34); Mean Corpuscular Volume 90 fL (80-100); Monocytes Percent Auto 3.7 % (0.0-11.0); Neutrophils Percent Auto 83.2 % (42.0-72.0); Platelet Count* 277 K/uL (140-440); RDW Coefficient of Variation % 14.4 % (11.5-15.5); Red Blood Count 3.89 m/uL (4.00-5.20); White Blood Count* 7.31 K/uL (4.50-11.00)
[2023-09-19 07:55] LABS: Albumin* 3.5 g/dL (3.3-5.0); Chloride* 101 mmol/L (96-114)
[2023-09-19 07:56] LABS: Potassium* 5.9 mmol/L (3.6-5.1)
[2023-09-19] MEDS: LEVOTHYROXINE 75 MCG TABLET PO (07:56)
[2023-09-19 07:58] LABS: Alkaline Phosphatase* 129 U/L (40-150); Anion Gap 2 mEq/L (7-15); Aspartate Amino Transferase* 52 U/L (12-35); Bilirubin Total* 0.5 mg/dL (0.1-1.5); Blood Urea Nitrogen* 39 mg/dL (7-30); Carbon Dioxide* 16 mmol/L (20-32); Creatinine* 1.3 mg/dL (0.5-1.5); Est. Creatinine Clearance* 21.83; Estimated Glomerular Filt Rate 40 ml/min; Glucose* 287 mg/dL (60-115)
[2023-09-19 07:59] LABS: Alanine Aminotransferase* 90 U/L (4-35); Calcium* 8.7 mg/dL (8.4-10.6)
[2023-09-19 08:19] LABS: Slide Review Reflex No
[2023-09-19 08:43] LABS: Sodium* 119 mmol/L (135-149)
[2023-09-19] MEDS: SODIUM BICARBONATE 650 MG TABLET PO ×3 (08:46→18:06)
[2023-09-19] MEDS: LOPERAMIDE HCL 2 MG CAPSULE 4 MG PO ×4 (08:47→20:56)
[2023-09-19] MEDS: FLUDROCORTISONE ACETATE 0.1 MG TABLET PO (08:47)
[2023-09-19] MEDS: APIXABAN 5 MG TABLET 2.5 MG PO ×2 (08:47→20:57)
[2023-09-19] MEDS: PSYLLIUM HUSK (WITH SUGAR) 12 GM PACKET PO ×3 (08:48→20:54)
[2023-09-19] MEDS: SERTRALINE 50 MG TABLET PO (08:48)
[2023-09-19] MEDS: SIMETHICONE 80 MG TAB.CHEW PO ×2 (08:48→20:56)
[2023-09-19] MEDS: SODIUM CHLORIDE 0.9 % (FLUSH) 10 ML SYRINGE 5 ML IVF (08:49)
[2023-09-19 09:20] LABS: HCO3 VBG 20 mmol/L (21-28); PCO2 VBG 42 mmHG (40-50); PO2 VBG 21.8 mmHG (25-47); pH VBG 7.293 (7.32-7.43)
[2023-09-19 09:24] LABS: Lactate* 3.1 mmol/L (0.5-1.9)
[2023-09-19] MEDS: LACTOBACILLUS ACIDOPHILUS 1 TABLET 1 TAB PO (10:02)
[2023-09-19] MEDS: MULTIVITAMIN/MINERALS 1 TABLET 1 TAB PO (10:02)
[2023-09-19] MEDS: FUROSEMIDE 10 MG/ML inj 40 MG IVP (10:03)
[2023-09-19] MEDS: CALCIUM GLUC 1,000MG/50 ML 1,000 MG/50 ML BAG 100 MG IVPB (10:10)
--- NOTE | 2023-09-19 10:43 | PC.SOCIAL ---
Addendum entered by HARIS Green 09/19/23 14:09: Catherine Griselda in admissions informs that they can accept pt back to [facility] when she is medically stable. [facility] prefers to have her back on Friday, but is willing to consider over the weekend with a nurse to nurse update. Original Note: Received a phone call from Adriana Patel ([facility]) at [phone]. Adriana has pt as an open case (Relocation from [facility] Closure) and is requesting an update. Provided update to Adriana. Received an e-mail from Catherine Villalobos in admissions at [facility] requesting an update. Provided update. Social work will follow up as needed.
[2023-09-19 11:00] VITALS: BP 114/55; PULSE 58; RESP 16; TEMP 36.5; O2SAT 96
[2023-09-19] MEDS: 0.9 % SODIUM CHLORIDE 500 ML 500 ML 1000 ML IV (11:03)
--- NOTE | 2023-09-19 12:10 | PM.IMPN1 ---
Progress Note: A&P Assessment and plan (1) Addisonian crisis: Problem details: - Patient presented with hypotension hyperkalemia hyponatremia and vomiting consistent with addisonian or adrenal insufficiency crisis. Cause for this is uncertain. - Other medical problems that could contribute to this are new AFib with RVR, high output from ostomy, poor oral intake, urinary tract infection, undiagnosed liver/biliary disease. Continue to evaluate all of these. - Continue with fludrocortisone 0.1 mg daily. - initially treated with stress doses of hydrocortisone. 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 Continue sodium bicarb 650 mg p.o. t.i.d. Status: Acute (3) Hyperkalemia: Problem details: - Secondary to RTA type 4 - potassium 4.7, continue to monitor Status: Acute (4) Atrial fibrillation: Problem details: - New diagnosis. Initiated renal dose Eliquis and rate control. - transthoracic echocardiogram 09/18/2023: Normal LV chamber size, normal wall thickness, hyperdynamic systolic function, EF 81%. Mild left atrial enlargement. Mild to moderate tricuspid regurgitation. - metoprolol held, rate stable, consider resuming at lower dose upon discharge Status: Acute (5) Diabetes mellitus type 1: Problem details: - Continue LA insulin, mealtime insulin and ISS. Diabetic diet, glucose checks ACHS. - glucose 100- upper 200s. Receiving approximately 20 units aspirate daily. Continue with dose adjustments as needed. Resume home glargine on discharge. - Suspicious that her gastroparesis in conjunction with her high output ostomy causes decrease absorption of carbohydrates, protein, fat. This may be contributing to the hypoglycemia as well. Status: Chronic (6) Ileostomy in place: Problem details: - Monitor for output. Monitor weights. Lasix has been held. - 09/20/23 started Lomotil again. - cholestyramine started 09/20/2023. - 09/21/2023 initiated t.i.d. atropine with diphenoxylate - 09/23/23 I initiated her morphine once again. Had previously been on 15 mg of extended release morphine twice daily. This was stopped on this admission. Today I am restarting morphine, concentrate solution, 5 mg q.i.d.. Today I also increase the dose of the cholestyramine and diphenoxylate with atropine. - 09/26: Continue loperamide, psyllium, cholestyramine, diphenoxylate, lactobacillus with plan to discharge on this regimen. Morphine changed to 10 mg t.i.d. Output goal <1000. Status: Chronic (7) Elevated liver transaminase level: Problem details: History of cholecystectomy. Cause of elevated LFTs is unknown Status: Acute (8) Chronic hyponatremia: Problem details: -her baseline is high 120's. Currently stable at 129. Improving with sodium bicarb and hydrocortisone for adrenal insufficiency. Status: Acute (9) Diabetic gastroparesis: Problem details: -Monitor oral intake Status: Chronic Subjective Time Seen by Provider: 09:43 Date Seen: 09/19/23 Interval history: Becca is bright and cheery this morning, but cries and moans while the nurse changes her IV. As soon as the nurse is done, Becca is back to bright and cheery. She says she feels okay and has no complaints. Nsg notes she seems a bit confused, albeit oriented x3. She apparently is repeating things and just seems a bit off. Exam Narrative: Exam Narrative: General: No acute distress. Awake, alert, oriented x3. No pallor. No jaundice. Affect: Smiling, bright and cheery. Oropharynx: Clear. Mucous membranes moist. Cardiovascular: Irregularly irregular. No murmurs, gallops, or rubs. Respiratory: Clear to auscultation bilaterally. No wheezes or crackles. Abdomen: Bowel sounds present. Soft, nondistended, nontender. Ostomy is pink. Small amount of brown stool in the bag. Extremities: No pedal edema. Const: Vital Signs, click to edit/add: Vital Signs - 24 hr 09/18/23 15:42 09/18/23 15:43 09/18/23 15:45 Temperature Pulse Rate 59 L 62 61 Pulse Rate [Pulse Oximeter] Respiratory Rate Blood Pressure 110/57 L Blood Pressure [Ri ght Arm] Pulse Oximetry 97 97 96 Oxygen Delivery Me thod 09/18/23 16:00 09/18/23 16:01 09/18/23 16:15 Temperature Pulse Rate 60 61 64 Pulse Rate [Pulse Oximeter] Respiratory Rate Blood Pressure 100/54 L Blood Pressure [Ri ght Arm] Pulse Oximetry 96 95 97 Oxygen Delivery Me thod 09/18/23 16:30 09/18/23 16:32 09/18/23 16:45 Temperature Pulse Rate 60 52 L 62 Pulse Rate [Pulse Oximeter] Respiratory Rate Blood Pressure 113/62 Blood Pressure [Ri ght Arm] Pulse Oximetry 97 95 98 Oxygen Delivery Me thod 09/18/23 17:00 09/18/23 17:01 09/18/23 17:31 Temperature Pulse Rate 66 70 Pulse Rate [Pulse Oximeter] Respiratory Rate Blood Pressure 100/69 83/60 L Blood Pressure [Ri ght Arm] Pulse Oximetry 87 L 97 Oxygen Delivery Me thod 09/18/23 17:33 09/18/23 17:45 09/18/23 17:49 Temperature Pulse Rate 55 L Pulse Rate [Pulse Oximeter] Respiratory Rate Blood Pressure 86/51 L 95/52 L Blood Pressure [Ri ght Arm] Pulse Oximetry 96 Oxygen Delivery Me thod 09/18/23 18:09 09/18/23 18:32 09/18/23 18:32 Temperature Pulse Rate 49 L 53 L Pulse Rate [Pulse Oximeter] Respiratory Rate Blood Pressure 109/71 108/59 L Blood Pressure [Ri ght Arm] Pulse Oximetry 95 95 Oxygen Delivery Me thod 09/18/23 18:53 09/18/23 19:00 09/18/23 22:00 Temperature 97.7 F 96.6 F L Pulse Rate Pulse Rate [Pulse Oximeter] 54 L 52 L Respiratory Rate 16 16 16 Blood Pressure Blood Pressure [Ri ght Arm] 109/56 L 90/56 L Pulse Oximetry 97 96 97 Oxygen Delivery Me thod Room Air Room Air Room Air 09/18/23 23:00 09/18/23 23:00 09/19/23 02:52 Temperature 97.3 F L 97.3 F L Pulse Rate 48 L Pulse Rate [Pulse Oximeter] 53 L 52 L Respiratory Rate 16 16 Blood Pressure Blood Pressure [Ri ght Arm] 122/67 131/66 Pulse Oximetry 99 96 Oxygen Delivery Me thod Room Air Room Air 09/19/23 07:00 09/19/23 11:00 Temperature 97.8 F 97.7 F Pulse Rate Pulse Rate [Pulse Oximeter] 64 58 L Respiratory Rate 20 16 Blood Pressure Blood Pressure [Ri ght Arm] 101/57 L 114/55 L Pulse Oximetry 99 96 Oxygen Delivery Me thod Room Air Room Air Labs Labs: Laboratory Results - last 24 hr 09/18/23 09/18/23 09/18/23 15:55 15:55 15:55 WBC 7.35 RBC 4.39 Hgb 12.5 Hct 39.3 MCV 90 MCH 29 MCHC 32 RDW Coeff of [place]arm[place] 14.1 Plt Count 360 Neut % (Auto) 62.3 Lymph % (Auto) 26.9 [place] % (Auto) 9.0 Eos % (Auto) 1.2 Baso % (Auto) 0.5 Neut # (Auto) 4.57 Lymph # (Auto) 1.98 [place] # (Auto) 0.70 Eos # (Auto) 0.09 Baso # (Auto) 0.04 Abs Immat Gran (auto) 0.01 Imm/Tot Granulo (auto) 0.1 INR 0.97 VBG pH VBG pCO2 VBG pO2 VBG HCO3 Sodium 118 L* Potassium 7.0 H* Chloride 99 Carbon Dioxide 16 L Anion Gap 3 L BUN 50 H Creatinine 1.8 H Estimated Creat Clear 15.26 Estimated GFR 27 Glucose 279 H Lactate 1.5 Calcium 9.2 Magnesium 2.4 Cancelled Total Bilirubin 0.4 Cancelled Direct Bilirubin 0.0 AST ALT Alkaline Phosphatase C-Reactive Protein Total Protein Albumin TSH Free T4 Urine Color Urine Appearance Urine pH Ur Specific [place] Urine Protein Urine Glucose (UA) Urine Ketones Urine Blood Urine Nitrite Urine Bilirubin Urine Urobilinogen Ur Leukocyte Esterase Urine RBC Urine WBC Ur Squamous Epith Cells Other Sediment Urine Bacteria Urine Yeast Stl C. diff Tox B Gene Stl C. diff 027-NAP1-BI SARS-CoV-2 (PCR) Influenza Type A (PCR) Influenza Type B (PCR) RSV (PCR) POC Troponin I 09/18/23 09/18/23 09/18/23 15:55 15:55 15:55 WBC RBC Hgb Hct MCV MCH MCHC RDW Coeff of [place]aine Plt Count Neut % (Auto) Lymph % (Auto) [place] % (Auto) Eos % (Auto) Baso % (Auto) Neut # (Auto) Lymph # (Auto) [place] # (Auto) Eos # (Auto) Baso # (Auto) Abs Immat Gran (auto) Imm/Tot Granulo (auto) INR VBG pH VBG pCO2 VBG pO2 VBG HCO3 Sodium Potassium Chloride Carbon Dioxide Anion Gap BUN Creatinine Estimated Creat Clear Estimated GFR Glucose Lactate Calcium Magnesium Total Bilirubin Direct Bilirubin Cancelled AST 84 H Cancelled ALT 115 H Cancelled Alkaline Phosphatase 175 H C-Reactive Protein Total Protein Albumin TSH Free T4 Urine Color Urine Appearance Urine pH Ur Specific [place] Urine Protein Urine Glucose (UA) Urine Ketones Urine Blood Urine Nitrite Urine Bilirubin Urine Urobilinogen Ur Leukocyte Esterase Urine RBC Urine WBC Ur Squamous Epith Cells Other Sediment Urine Bacteria Urine Yeast Stl C. diff Tox B Gene Stl C. diff [id number]-NAP1-BI SARS-CoV-2 (PCR) Influenza Type A (PCR) Influenza Type B (PCR) RSV (PCR) POC Troponin I 09/18/23 09/18/23 09/18/23 15:55 15:55 15:55 WBC RBC Hgb Hct MCV MCH MCHC RDW Coeff of [place]armaine Plt Count Neut % (Auto) Lymph % (Auto) [place] % (Auto) Eos % (Auto) Baso % (Auto) Neut # (Auto) Lymph # (Auto) [place] # (Auto) Eos # (Auto) Baso # (Auto) Abs Immat Gran (auto) Imm/Tot Granulo (auto) INR VBG pH VBG pCO2 VBG pO2 VBG HCO3 Sodium Potassium Chloride Carbon Dioxide Anion Gap BUN Creatinine Estimated Creat Clear Estimated GFR Glucose Lactate Calcium Magnesium Total Bilirubin Direct Bilirubin AST ALT Alkaline Phosphatase Cancelled C-Reactive Protein < 0.5 L Total Protein 6.6 Cancelled Albumin 3.9 Cancelled TSH 8.440 H Free T4 1.23 Urine Color Urine Appearance Urine pH Ur Specific [place] Urine Protein Urine Glucose (UA) Urine Ketones Urine Blood Urine Nitrite Urine Bilirubin Urine Urobilinogen Ur Leukocyte Esterase Urine RBC Urine WBC Ur Squamous Epith Cells Other Sediment Urine Bacteria Urine Yeast Stl C. diff Tox B Gene Stl C. diff [id number]-NAP1-BI SARS-CoV-2 (PCR) Influenza Type A (PCR) Influenza Type B (PCR) RSV (PCR) POC Troponin I 09/18/23 09/18/23 09/18/23 15:58 18:35 23:24 WBC RBC Hgb Hct MCV MCH MCHC RDW Coeff of [place]armaine Plt Count Neut % (Auto) Lymph % (Auto) [place] % (Auto) Eos % (Auto) Baso % (Auto) Neut # (Auto) Lymph # (Auto) [place] # (Auto) Eos # (Auto) Baso # (Auto) Abs Immat Gran (auto) Imm/Tot Granulo (auto) INR VBG pH VBG pCO2 VBG pO2 VBG HCO3 Sodium 119 L* Potassium 6.3 H* Chloride 103 Carbon Dioxide 15 L Anion Gap 1 L BUN 43 H Creatinine 1.5 Estimated Creat Clear 17.90 Estimated GFR 34 Glucose 350 H Lactate 2.1 H Calcium 8.3 L Magnesium Total Bilirubin Direct Bilirubin AST ALT Alkaline Phosphatase C-Reactive Protein Total Protein Albumin TSH Free T4 Urine Color Yellow Urine Appearance Clear Urine pH 5.0 Ur Specific [place] 1.015 Urine Protein Negative Urine Glucose (UA) Trace A Urine Ketones Negative Urine Blood Negative Urine Nitrite Negative Urine Bilirubin Negative Urine Urobilinogen 0.2 Ur Leukocyte Esterase 1+ A Urine RBC 0-2 Urine WBC 25-50 A Ur Squamous Epith Cells Moderate A Other Sediment Many A Urine Bacteria Moderate A Urine Yeast Many A Stl C. diff Tox B Gene Stl C. diff [id number]-NAP1-BI SARS-CoV-2 (PCR) Influenza Type A (PCR) Influenza Type B (PCR) RSV (PCR) POC Troponin I 0.01 09/18/23 09/18/23 09/19/23 23:25 Unknown 01:48 WBC RBC Hgb Hct MCV MCH MCHC RDW Coeff of [place]armaine Plt Count Neut % (Auto) Lymph % (Auto) [place] % (Auto) Eos % (Auto) Baso % (Auto) Neut # (Auto) Lymph # (Auto) [place] # (Auto) Eos # (Auto) Baso # (Auto) Abs Immat Gran (auto) Imm/Tot Granulo (auto) INR VBG pH 7.220 L* VBG pCO2 43 VBG pO2 < 20.0 L VBG HCO3 18 L Sodium Potassium Chloride Carbon Dioxide Anion Gap BUN Creatinine Estimated Creat Clear Estimated GFR Glucose Lactate Calcium Magnesium Total Bilirubin Direct Bilirubin AST ALT Alkaline Phosphatase C-Reactive Protein Total Protein Albumin TSH Free T4 Urine Color Urine Appearance Urine pH Ur Specific [place] Urine Protein Urine Glucose (UA) Urine Ketones Urine Blood Urine Nitrite Urine Bilirubin Urine Urobilinogen Ur Leukocyte Esterase Urine RBC Urine WBC Ur Squamous Epith Cells Other Sediment Urine Bacteria Urine Yeast Stl C. diff Tox B Gene Negative Stl C. diff [id number]-NAP1-BI PRESUMPTIVE NEGATIVE SARS-CoV-2 (PCR) Negative SARS-CoV-2 Influenza Type A (PCR) Negative PCR FLU A Influenza Type B (PCR) Negative PCR FLU B RSV (PCR) Negative PCR RSV POC Troponin I 09/19/23 09/19/23 07:05 09:15 WBC 7.31 RBC 3.89 L Hgb 11.2 L Hct 34.9 MCV 90 MCH 29 MCHC 32 RDW Coeff of Sharmaine 14.4 Plt Count 277 Neut % (Auto) 83.2 H Lymph % (Auto) 12.9 L [place] % (Auto) 3.7 Eos % (Auto) 0.0 Baso % (Auto) 0.1 Neut # (Auto) 6.10 Lymph # (Auto) 0.90 [place] # (Auto) 0.30 Eos # (Auto) 0.00 Baso # (Auto) 0.01 Abs Immat Gran (auto) 0.01 Imm/Tot Granulo (auto) 0.1 INR VBG pH 7.293 L VBG pCO2 42 VBG pO2 21.8 L VBG HCO3 20 L Sodium 119 L* Potassium 5.9 H Chloride 101 Carbon Dioxide 16 L Anion Gap 2 L BUN 39 H Creatinine 1.3 Estimated Creat Clear 21.83 Estimated GFR 40 Glucose 287 H Lactate 3.1 H Calcium 8.7 Magnesium Total Bilirubin 0.5 Direct Bilirubin 0.0 AST 52 H ALT 90 H Alkaline Phosphatase 129 C-Reactive Protein Total Protein 6.0 Albumin 3.5 TSH Free T4 Urine Color Urine Appearance Urine pH Ur Specific [place] Urine Protein Urine Glucose (UA) Urine Ketones Urine Blood Urine Nitrite Urine Bilirubin Urine Urobilinogen Ur Leukocyte Esterase Urine RBC Urine WBC Ur Squamous Epith Cells Other Sediment Urine Bacteria Urine Yeast Stl C. diff Tox B Gene Stl C. diff [id number]-NAP1-BI SARS-CoV-2 (PCR) Influenza Type A (PCR) Influenza Type B (PCR) RSV (PCR) POC Troponin I
[2023-09-19 12:30] LABS: Lactate* 3.9 mmol/L (0.5-1.9)
[2023-09-19 12:38] LABS: Sodium* 126 mmol/L (135-149)
[2023-09-19 12:48] LABS: Chloride* 98 mmol/L (96-114); Potassium* 5.2 mmol/L (3.6-5.1)
[2023-09-19] MEDS: ASPIRIN 81 MG TAB.CHEW PO (12:48)
[2023-09-19 12:51] LABS: Anion Gap 11 mEq/L (7-15); Blood Urea Nitrogen* 34 mg/dL (7-30); Carbon Dioxide* 17 mmol/L (20-32); Creatinine* 1.2 mg/dL (0.5-1.5); Est. Creatinine Clearance* 23.65; Estimated Glomerular Filt Rate 44 ml/min
[2023-09-19 12:52] LABS: Calcium* 8.8 mg/dL (8.4-10.6); Glucose* 242 mg/dL (60-115)
[2023-09-19 12:55] VITALS: BMI 17.9
[2023-09-19 15:00] VITALS: BP 110/47; PULSE 67; RESP 16; TEMP 36.6; O2SAT 99
[2023-09-19 15:43] VITALS: PULSE 86
[2023-09-19 19:31] LABS: Chloride* 89 mmol/L (96-114)
[2023-09-19 19:34] LABS: Creatinine* 1.3 mg/dL (0.5-1.5); Est. Creatinine Clearance* 21.83; Estimated Glomerular Filt Rate 40 ml/min
[2023-09-19 19:35] LABS: Blood Urea Nitrogen* 36 mg/dL (7-30); Carbon Dioxide* 25 mmol/L (20-32)
--- NOTE | 2023-09-19 19:44 | PC.NURSE ---
End of shift [id number] - Pt alert, cooperative, and oriented to self. Pt experienced intermittent difficulty with comprehension. Reoriented as needed. Pt 1 assist, walker, gait belt to bathroom. Continent of bladder. Pt with ostomy, assisted staff with care. Tolerating regular diet, RA, VS within normal limits. Pt blood glucose reading recorded at 491 during shift, notified, no orders given for serum blood glucose draw. Pt asymptomatic of hyperglycemia.
[2023-09-19 19:48] LABS: Glucose* 569 mg/dL (60-115)
[2023-09-19 19:49] LABS: Anion Gap 8 mEq/L (7-15); Calcium* 8.2 mg/dL (8.4-10.6); Sodium* 122 mmol/L (135-149)
[2023-09-19 20:20] VITALS: BP 121/51; PULSE 65; RESP 16; TEMP 36.7; O2SAT 99
[2023-09-19] MEDS: 0.9 % SODIUM CHLORIDE 1000 ml 1,000 ML 125 ML IV (20:49)
[2023-09-19] MEDS: FUROSEMIDE 10 MG/ML inj 20 MG IVP (20:50)
[2023-09-19] MEDS: COENZYME Q10 100 MG CAPSULE PO (20:56)
[2023-09-20] VITALS (9 sets, daily range): BP systolic 118–144; BP diastolic 57–76; PULSE 64–100; RESP 16–18; TEMP 36.6–36.8; O2SAT 94–98
[2023-09-20] MEDS: INSULIN ASPART 100 UNIT/ML 10 UNIT SUBCUT (00:09)
[2023-09-20] MEDS: INSULIN ASPART 100 UNIT/ML SUBCUT ×4 (02:17→19:37)
[2023-09-20] MEDS: HYDROCORTISONE SOD SUCCINATE 50 MG/ML inj IVP ×2 (02:17→10:52)
[2023-09-20] MEDS: 0.9 % SODIUM CHLORIDE 1000 ml 1,000 ML 125 ML IV ×2 (04:54→15:44)
[2023-09-20 06:44] LABS: Chloride* 98 mmol/L (96-114); Potassium* 4.4 mmol/L (3.6-5.1); Sodium* 130 mmol/L (135-149)
[2023-09-20 06:47] LABS: Anion Gap 8 mEq/L (7-15); Carbon Dioxide* 24 mmol/L (20-32); Est. Creatinine Clearance* 28.37; Estimated Glomerular Filt Rate 55 ml/min
[2023-09-20 06:48] LABS: Blood Urea Nitrogen* 32 mg/dL (7-30); Calcium* 8.5 mg/dL (8.4-10.6); Glucose* 60 mg/dL (60-115)
[2023-09-20] MEDS: LEVOTHYROXINE 75 MCG TABLET PO (07:12)
--- NOTE | 2023-09-20 07:57 | PC.NURSE ---
Pt alert and oriented x3. Afebrile. Pt denies pain, chest pain, SOB, N/V. Pt blood sugar around 2330 was 466, MD updated 10 units of Aspart insulin given. Pt's blood sugar around 0200 was 294, 6 units were given per protocol. Pt blood sugar was checked again around 0720 before breakfast blood sugar was 40, and oncoming RN notified, story writer gave pt 2 orange juices and breakfast arrived after pt drank the 8 0z orange juices. Pt denies dizziness, nausea and vomiting. Pt is up SBA with walker gait belt. Pt slept throughout most of night.
[2023-09-20] MEDS: APIXABAN 5 MG TABLET 2.5 MG PO ×2 (09:09→21:53)
[2023-09-20] MEDS: FLUDROCORTISONE ACETATE 0.1 MG TABLET PO (09:09)
[2023-09-20] MEDS: LACTOBACILLUS ACIDOPHILUS 1 TABLET 1 TAB PO (09:09)
[2023-09-20] MEDS: MULTIVITAMIN/MINERALS 1 TABLET 1 TAB PO (09:09)
[2023-09-20] MEDS: SIMETHICONE 80 MG TAB.CHEW PO ×2 (09:09→21:52)
[2023-09-20] MEDS: SERTRALINE 50 MG TABLET PO (09:10)
[2023-09-20] MEDS: LOPERAMIDE HCL 2 MG CAPSULE 4 MG PO ×4 (09:10→21:52)
[2023-09-20] MEDS: SODIUM CHLORIDE 0.9 % (FLUSH) 10 ML SYRINGE 5 ML IVF (09:10)
[2023-09-20] MEDS: SODIUM BICARBONATE 650 MG TABLET PO ×3 (09:10→17:38)
--- NOTE | 2023-09-20 10:21 | PC.NURSE ---
shift note: pt c/o feeling lightheaded when changing positions. orthostatic BP's done. laying 129/61, HR=90;sitting 127/59 HR=91; standing 128/64 HR=90. Dr. Reynolds notified. no further orders
[2023-09-20] MEDS: ASPIRIN 81 MG TAB.CHEW PO (12:50)
--- NOTE | 2023-09-20 17:19 | PM.IMPN1 ---
Progress Note: A&P Assessment and plan (1) Addisonian crisis: Problem details: Patient presents with hypotension hyperkalemia hyponatremia and vomiting consistent with addisonian or adrenal insufficiency crisis. Cause for this is uncertain. Other medical problems that could contribute to this are new AFib with RVR, high output from ostomy, poor oral intake, urinary tract infection, undiagnosed liver/biliary disease. Continue to evaluate all of these. Continue stress dose steroids. 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 Some improvement. Continue sodium bicarb 650 mg p.o. t.i.d., consider increasing dose to q.i.d.. Status: Acute (3) Hyperkalemia: Problem details: - Secondary to RTA type 4 - Improving. Status: Acute (4) Atrial fibrillation: Problem details: New diagnosis. Initiated renal dose Eliquis and rate control. Obtain echo. Results pending. Status: Acute (5) Diabetes mellitus type 1: Problem details: Continue LA insulin, mealtime insulin and ISS. Status: Chronic (6) Ileostomy in place: Problem details: Monitor for output. Started Lomotil again. Will also initiate cholestyramine. Status: Chronic (7) Elevated liver transaminase level: Problem details: History of cholecystectomy. Cause of elevated LFTs is unknown Status: Acute (8) Chronic hyponatremia: Problem details: - her baseline is high 120's. Improving with sodium bicarb and hydrocortisone for adrenal insufficiency. Status: Acute (9) Diabetic gastroparesis: Problem details: Monitor oral intake Status: Chronic Plan 1. Reviewed above plan with patient. She is agreeable. Time Spent With Patient Total time spent: 40 minutes Subjective Date Seen: 09/20/23 Interval history: Hospital day 3. Notes persistent high output from her ostomy. Complains of lightheadedness but does not have orthostatic changes. Eating and drinking. A little more comfortable today than yesterday. Exam Narrative: Exam Narrative: Appears comfortable. Pleasant. Vision and hearing are adequate. Alert and oriented to self, place, time, and even situation. Friendly, articulate, cooperative. Lungs clear to auscultation. Heart tones with regular rhythm. Abdomen with active bowel sounds. Ostomy bag is full of air with some liquid. No focal motor neurologic deficits. Const: Vital Signs, click to edit/add: Vital Signs - 24 hr 09/19/23 20:20 09/20/23 00:15 09/20/23 00:15 Temperature 98.1 F Pulse Rate 66 Pulse Rate [Pulse Oximeter] 65 73 Respiratory Rate 16 16 Blood Pressure [Ri ght Arm] 121/51 L Pulse Oximetry 99 Oxygen Delivery Me thod Room Air 09/20/23 00:15 09/20/23 02:10 09/20/23 07:30 Temperature 98.0 F 98.1 F 97.8 F Pulse Rate Pulse Rate [Pulse Oximeter] 65 64 90 Respiratory Rate 16 16 16 Blood Pressure [Ri ght Arm] 137/69 144/57 H 129/61 Pulse Oximetry 95 96 98 Oxygen Delivery Me thod Room Air Room Air Room Air 09/20/23 08:35 09/20/23 11:00 Temperature 98.2 F Pulse Rate 83 Pulse Rate [Pulse Oximeter] 90 Respiratory Rate 18 Blood Pressure [Ri ght Arm] 125/64 Pulse Oximetry 95 Oxygen Delivery Me thod Room Air Documenting provider has reviewed patient's vital signs: yes Labs Labs: Laboratory Results - last 24 hr 09/19/23 09/20/23 19:00 05:59 Sodium 122 L* 130 L Potassium 6.0 H 4.4 Chloride 89 L 98 Carbon Dioxide 25 24 Anion Gap 8 8 BUN 36 H 32 H Creatinine 1.3 1.0 Estimated Creat Clear 21.83 28.37 Estimated GFR 40 55 Glucose 569 H* 60 Calcium 8.2 L 8.5
[2023-09-20] MEDS: PSYLLIUM HUSK (WITH SUGAR) 12 GM PACKET PO ×2 (17:38→21:53)
[2023-09-20] MEDS: HYDROCORTISONE SOD SUCCINATE 50 MG/ML inj 25 MG IVP (17:49)
[2023-09-20] MEDS: ACETAMINOPHEN 325 MG TABLET 650 MG PO (19:46)
--- NOTE | 2023-09-20 19:47 | PC.NURSE ---
shift note: vss stable. pt afeb. IV patent. ostomy changed. pt had liquid stools with large amounts of flatus.
[2023-09-20] MEDS: CHOLESTYRAMINE POWDER 4 GM PO (21:51)
[2023-09-20] MEDS: DIPHENOXYLATE-ATROP 2.5-0.025 TABLET 1 TAB PO (21:52)
[2023-09-20] MEDS: COENZYME Q10 100 MG CAPSULE PO (21:53)
[2023-09-21] VITALS (7 sets, daily range): BP systolic 124–139; BP diastolic 49–74; PULSE 62–110; RESP 16–18; TEMP 36.3–36.9; O2SAT 94–97
[2023-09-21] MEDS: HYDROCORTISONE SOD SUCCINATE 50 MG/ML inj 25 MG IVP ×3 (02:32→16:46)
--- NOTE | 2023-09-21 05:03 | PC.NURSE ---
Pt pleasant and cooperative. VSS. Up to the commode several times this shift. Ostomy bag and wafer changed as was leaking. Lg amt of stool per ostomy.Tele shows a NSR.
[2023-09-21 07:05] LABS: HCO3 VBG 25 mmol/L (21-28); PCO2 VBG 35 mmHG (40-50); PO2 VBG 63.5 mmHG (25-47); pH VBG 7.463 (7.32-7.43)
[2023-09-21 07:23] LABS: Chloride* 102 mmol/L (96-114); Potassium* 4.3 mmol/L (3.6-5.1); Sodium* 132 mmol/L (135-149)
[2023-09-21 07:26] LABS: Anion Gap 6 mEq/L (7-15); Blood Urea Nitrogen* 19 mg/dL (7-30); Calcium* 8.2 mg/dL (8.4-10.6); Carbon Dioxide* 24 mmol/L (20-32); Creatinine* 0.7 mg/dL (0.5-1.5); Est. Creatinine Clearance* 29.61; Estimated Glomerular Filt Rate 84 ml/min; Glucose* 207 mg/dL (60-115)
[2023-09-21] MEDS: SIMETHICONE 80 MG TAB.CHEW PO ×2 (09:03→21:55)
[2023-09-21] MEDS: LEVOTHYROXINE 75 MCG TABLET PO (09:03)
[2023-09-21] MEDS: APIXABAN 5 MG TABLET 2.5 MG PO ×2 (09:04→21:56)
[2023-09-21] MEDS: MULTIVITAMIN/MINERALS 1 TABLET 1 TAB PO (09:04)
[2023-09-21] MEDS: SERTRALINE 50 MG TABLET PO (09:04)
[2023-09-21] MEDS: LOPERAMIDE HCL 2 MG CAPSULE 4 MG PO ×4 (09:05→21:55)
[2023-09-21] MEDS: PSYLLIUM HUSK (WITH SUGAR) 12 GM PACKET PO ×3 (09:05→22:00)
[2023-09-21] MEDS: INSULIN ASPART 100 UNIT/ML SUBCUT ×5 (09:08→18:29)
[2023-09-21] MEDS: LACTOBACILLUS ACIDOPHILUS 1 TABLET 1 TAB PO (09:18)
[2023-09-21] MEDS: SODIUM CHLORIDE 0.9 % (FLUSH) 10 ML SYRINGE 5 ML IVF (10:35)
[2023-09-21] MEDS: FLUDROCORTISONE ACETATE 0.1 MG TABLET PO (10:44)
[2023-09-21] MEDS: CHOLESTYRAMINE POWDER 4 GM PO ×2 (10:44→21:57)
[2023-09-21] MEDS: 0.9 % SODIUM CHLORIDE 500 ML 500 ML 1000 ML IV (10:44)
[2023-09-21] MEDS: SODIUM BICARBONATE 650 MG TABLET PO ×3 (10:44→16:46)
[2023-09-21] MEDS: DIPHENOXYLATE-ATROP 2.5-0.025 TABLET 1 TAB PO ×3 (10:50→21:56)
[2023-09-21] MEDS: ASPIRIN 81 MG TAB.CHEW PO (13:53)
[2023-09-21] MEDS: LACTOBACILLUS ACIDOPHILUS 1 TABLET 2 TAB PO ×2 (13:54→16:43)
--- NOTE | 2023-09-21 15:46 | P.IMPN_ITS ---
Progress Note: A&P Assessment and plan (1) Addisonian crisis: Problem details: Patient presents with hypotension hyperkalemia hyponatremia and vomiting consistent with addisonian or adrenal insufficiency crisis. Cause for this is uncertain. Other medical problems that could contribute to this are new AFib with RVR, high output from ostomy, poor oral intake, urinary tract infection, undiagnosed liver/biliary disease. Continue to evaluate all of these. Continue with fludrocortisone 0.1 mg daily. Decrease hydrocortisone to 25 mg 3 times daily. 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 Some improvement. Continue sodium bicarb 650 mg p.o. t.i.d., consider increasing dose to q.i.d.. Status: Acute (3) Hyperkalemia: Problem details: - Secondary to RTA type 4 - Improving. Status: Acute (4) Atrial fibrillation: Problem details: New diagnosis. Initiated renal dose Eliquis and rate control. Obtain echo. Results pending. Status: Acute (5) Diabetes mellitus type 1: Problem details: Continue LA insulin, mealtime insulin and ISS. Status: Chronic (6) Ileostomy in place: Problem details: - Monitor for output. Monitor weights. - 09/20/23 started Lomotil again. - cholestyramine started 09/20/2023. - 09/21/2023 initiated t.i.d. atropine with diphenoxylate Status: Chronic (7) Elevated liver transaminase level: Problem details: History of cholecystectomy. Cause of elevated LFTs is unknown Status: Acute (8) Chronic hyponatremia: Problem details: - her baseline is high 120's. Improving with sodium bicarb and hydrocortisone for adrenal insufficiency. Status: Acute (9) Diabetic gastroparesis: Problem details: Monitor oral intake Status: Chronic (10) Orthostasis: Problem details: - multifactorial - continue with treatment for [place]'s including fludrocortisone - 09/21/2023: Normal saline 1 L over 2 hours. Reassess orthostatics in the morning. Status: Acute Plan 1. Reviewed impression with patient. 2. Discussed with her son Torey. 3. Answered their questions. 4. Continue with plan as specified above. Time Spent With Patient Total time spent: 45 minutes Subjective Date Seen: 09/21/23 Interval history: Hospital day 4. Notes persistent high output from her ostomy. Complains of orthostatic changes. Eating and drinking. A little more comfortable today than yesterday. Exam Narrative: Exam Narrative: Orthostatic blood pressures and pulses obtained today demonstrate increasing tachycardia from supine to sitting to standing. Weight 46.4 kg compared to 46 kg yesterday and 44.5 kg the day prior. These are all standing weights. Examining her in her hospital room today. Appears comfortable. Sitting in chair at bedside eating her breakfast telling me that she feels lightheaded. Lungs clear to auscultation. Heart tones with regular rhythm. Abdomen with active bowel sounds. Ostomy bag is full. No focal motor neurologic deficits. Complains of generalized weakness nevertheless. Const: Vital Signs, click to edit/add: Vital Signs - 24 hr 09/20/23 19:00 09/20/23 23:00 09/20/23 23:40 Temperature 98.0 F 98.2 F Pulse Rate 73 Pulse Rate [Pulse Oximeter] 75 72 Pulse Rate [orthos tatic lying Right Brachial] Pulse Rate [orthos tatic sitting Righ t Brachial] Pulse Rate [orthos tatic standing Rig ht Brachial] Respiratory Rate 18 16 Blood Pressure [Ri ght Arm] 142/69 H 141/76 H Blood Pressure [or thostatic lying Ri ght Arm] Blood Pressure [or thostatic sitting Right Arm] Blood Pressure [or thostatic standing Right Arm] Pulse Oximetry 97 97 Oxygen Delivery Me thod Room Air Room Air 09/21/23 03:00 09/21/23 07:00 09/21/23 08:28 Temperature 98.2 F Pulse Rate 71 Pulse Rate [Pulse Oximeter] 69 Pulse Rate [orthos tatic lying Right Brachial] 89 Pulse Rate [orthos tatic sitting Righ t Brachial] 95 Pulse Rate [orthos tatic standing Rig ht Brachial] 110 H Respiratory Rate 16 Blood Pressure [Ri ght Arm] 137/65 Blood Pressure [or thostatic lying Ri ght Arm] 139/71 Blood Pressure [or thostatic sitting Right Arm] 133/61 Blood Pressure [or thostatic standing Right Arm] 130/49 L Pulse Oximetry 97 Oxygen Delivery Me thod Room Air 09/21/23 08:28 09/21/23 11:00 Temperature 97.4 F L 97.8 F Pulse Rate Pulse Rate [Pulse Oximeter] 89 75 Pulse Rate [orthos tatic lying Right Brachial] Pulse Rate [orthos tatic sitting Righ t Brachial] Pulse Rate [orthos tatic standing Rig ht Brachial] Respiratory Rate 16 16 Blood Pressure [Ri ght Arm] 139/71 124/68 Blood Pressure [or thostatic lying Ri ght Arm] Blood Pressure [or thostatic sitting Right Arm] Blood Pressure [or thostatic standing Right Arm] Pulse Oximetry 96 94 Oxygen Delivery Me thod Room Air Room Air Labs Labs: Laboratory Results - last 24 hr 09/21/23 06:23 VBG pH 7.463 H VBG pCO2 35 L VBG pO2 63.5 H VBG HCO3 25 Sodium 132 L Potassium 4.3 Chloride 102 Carbon Dioxide 24 Anion Gap 6 L BUN 19 Creatinine 0.7 Estimated Creat Clear 29.61 Estimated GFR 84 Glucose 207 H Calcium 8.2 L
--- NOTE | 2023-09-21 20:48 | PC.NURSE ---
shift note: pt up for meals. pt ostomy intact. stool in ostomy less liquid and more mushy this afternoon. Pt producing moderate amounts of gas in ostomy bag. Pt denies pain. pt did state that she felt slightly lightheaded upon standing this a.m. Orthostatic BP's per Dr. Reynolds performed. IV intact/patent with some redness at puncture site. LS clr. blood sugars monitored per D.O.
[2023-09-21] MEDS: COENZYME Q10 100 MG CAPSULE PO (21:54)
[2023-09-22] VITALS (9 sets, daily range): BP systolic 112–148; BP diastolic 59–78; PULSE 65–90; RESP 16–20; TEMP 36.6–37.2; O2SAT 95–100
[2023-09-22] MEDS: HYDROCORTISONE 10 MG TABLET PO ×2 (00:10→16:33)
[2023-09-22] MEDS: SODIUM CHLORIDE 0.9 % (FLUSH) 10 ML SYRINGE 5 ML IVF ×2 (00:12→21:05)
[2023-09-22 06:16] LABS: HCO3 VBG 24 mmol/L (21-28); PCO2 VBG 33 mmHG (40-50); pH VBG 7.469 (7.32-7.43)
--- NOTE | 2023-09-22 06:21 | PC.NURSE ---
Pt pleasant and cooperative. Up with the assist of 1 and walker. needs assist with emptying her ileostomy. She is urinating without difficulty. Is on a 2000 cc fluid restriction and tolerates this well. bedside glucose at 0200 was 106. No insulin given,
[2023-09-22 06:42] LABS: Chloride* 104 mmol/L (96-114); Potassium* 3.8 mmol/L (3.6-5.1); Sodium* 132 mmol/L (135-149)
[2023-09-22 06:44] LABS: Creatinine* 0.8 mg/dL (0.5-1.5); Est. Creatinine Clearance* 29.61; Estimated Glomerular Filt Rate 72 ml/min
[2023-09-22 06:45] LABS: Anion Gap 4 mEq/L (7-15); Blood Urea Nitrogen* 18 mg/dL (7-30); Calcium* 8.5 mg/dL (8.4-10.6); Carbon Dioxide* 24 mmol/L (20-32)
[2023-09-22 06:48] LABS: Glucose* 74 mg/dL (60-115)
[2023-09-22] MEDS: SODIUM BICARBONATE 650 MG TABLET PO ×3 (08:07→18:09)
[2023-09-22] MEDS: LEVOTHYROXINE 75 MCG TABLET PO (08:07)
[2023-09-22] MEDS: LACTOBACILLUS ACIDOPHILUS 1 TABLET 2 TAB PO ×3 (09:48→18:12)
[2023-09-22] MEDS: SIMETHICONE 80 MG TAB.CHEW PO ×2 (09:49→21:04)
[2023-09-22] MEDS: APIXABAN 5 MG TABLET 2.5 MG PO ×2 (09:49→21:01)
[2023-09-22] MEDS: DIPHENOXYLATE-ATROP 2.5-0.025 TABLET 1 TAB PO ×3 (09:49→21:03)
[2023-09-22] MEDS: SERTRALINE 50 MG TABLET PO (09:50)
[2023-09-22] MEDS: LOPERAMIDE HCL 2 MG CAPSULE 4 MG PO ×4 (09:50→21:03)
[2023-09-22] MEDS: FLUDROCORTISONE ACETATE 0.1 MG TABLET PO (09:50)
[2023-09-22] MEDS: MULTIVITAMIN/MINERALS 1 TABLET 1 TAB PO (09:50)
[2023-09-22] MEDS: PSYLLIUM HUSK (WITH SUGAR) 12 GM PACKET PO ×3 (09:51→21:00)
[2023-09-22] MEDS: CHOLESTYRAMINE POWDER 4 GM PO ×2 (09:51→20:59)
[2023-09-22] MEDS: HYDROCORTISONE 10 MG TABLET 15 MG PO (09:51)
--- NOTE | 2023-09-22 11:45 | PC.SOCIAL ---
Received call from [employer] stating pt has a supportive employment case manager Delmy Austin [phone] who can be contacted regarding discharge needs.
[2023-09-22] MEDS: ASPIRIN 81 MG TAB.CHEW PO (12:01)
[2023-09-22] MEDS: INSULIN ASPART 100 UNIT/ML SUBCUT ×5 (12:16→21:05)
--- NOTE | 2023-09-22 14:02 | PC.SOCIAL ---
Received an e-mail from Catherine Allan in admissions at [facility] requesting an update on pt's status and discharge plan. [employer] e-mailed Catherine pt's most recent MD progress note and informed that pt is not medically cleared for discharge today. This worker will keep [facility] updated, per Nursing pt may be ready as early as tomorrow. Social work will follow up as needed.
--- NOTE | 2023-09-22 15:21 | P.IMPN_ITS ---
Progress Note: A&P Assessment and plan (1) Addisonian crisis: Problem details: - Patient presents with hypotension hyperkalemia hyponatremia and vomiting consistent with addisonian or adrenal insufficiency crisis. Cause for this is uncertain. - Other medical problems that could contribute to this are new AFib with RVR, high output from ostomy, poor oral intake, urinary tract infection, undiagnosed liver/biliary disease. Continue to evaluate all of these. - Continue with fludrocortisone 0.1 mg daily. - initially treated with stress doses of hydrocortisone. Presently on 15 mg oral hydrocortisone every morning and 10 mg every evening. 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 Some improvement. Continue sodium bicarb 650 mg p.o. t.i.d., consider increasing dose to q.i.d.. Status: Acute (3) Hyperkalemia: Problem details: - Secondary to RTA type 4 - Improving. Status: Acute (4) Atrial fibrillation: Problem details: - New diagnosis. Initiated renal dose Eliquis and rate control. - transthoracic echocardiogram 09/18/2023: Normal LV chamber size, normal wall thickness, hyperdynamic systolic function, EF 81%. Mild left atrial e nlargement. Mild to moderate tricuspid regurgitation. Status: Acute (5) Diabetes mellitus type 1: Problem details: - Continue LA insulin, mealtime insulin and ISS. - ongoing dose adjustments in insulin due to morning hypoglycemia. - I am suspicious that her gastroparesis in conjunction with her high output ostomy causes decrease absorption of carbohydrates, protein, fat. This may be contributing to the hypoglycemia as well. Status: Chronic (6) Ileostomy in place: Problem details: - Monitor for output. Monitor weights. - 09/20/23 started Lomotil again. - cholestyramine started 09/20/2023. - 09/21/2023 initiated t.i.d. atropine with diphenoxylate Status: Chronic (7) Elevated liver transaminase level: Problem details: History of cholecystectomy. Cause of elevated LFTs is unknown Status: Acute (8) Chronic hyponatremia: Problem details: - her baseline is high 120's. Improving with sodium bicarb and hydrocortisone for adrenal insufficiency. Status: Acute (9) Diabetic gastroparesis: Problem details: Monitor oral intake Status: Chronic (10) Orthostasis: Problem details: - multifactorial - continue with treatment for [place]'s including fludrocortisone - 09/21/2023: Normal saline 1 L over 2 hours. Reassess orthostatics in the morning. - 09/22/2023: Continue to monitor orthostatic blood pressures and pulses. Status: Acute (11) Physical deconditioning: Problem details: - chronic - continue with efforts to try to help her remain is independent she can as long as she can. 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 Reviewed impression with patient 2. She is agreeable with continuing efforts to try to get her well enough to get back to the residential facility. Time Spent With Patient Total time spent: 40 minutes Subjective Date Seen: 09/22/23 Interval history: Hospital day 5. Notes persistent high output from her ostomy. Complains of persistent lightheadedness, not necessarily with orthostasis today. Eating and drinking. A little more comfortable today than yesterday. Exam Narrative: Exam Narrative: Point of care glucose this morning was as low as 38 mg/dL. We continue to lower her dose of insulin. Appears comfortable in no acute distress. Patient examined in her hospital room. Alert and oriented to self, place, time, situation. Friendly, articulate, cooperative. Lungs are clear to auscultation without wheezing, rhonchi, or rales. Heart tones with regular rhythm, normal S1-S2. Abdomen with active bowel sounds, soft, nontender. Ostomy bag was just emptied in his clear. RN notes continued high volume ostomy output. Extremities without edema. No focal motor neurologic deficits. Const: Vital Signs, click to edit/add: Vital Signs - 24 hr 09/21/23 19:00 09/22/23 00:08 09/22/23 03:00 Temperature 98.5 F 98.7 F 97.8 F Pulse Rate Pulse Rate [Pulse Oximeter] 71 69 69 Pulse Rate [orthos tatic lying Right Brachial] Pulse Rate [orthos tatic sitting Righ t Brachial] Pulse Rate [orthos tatic standing Rig ht Brachial] Respiratory Rate 18 16 18 Blood Pressure [Ri ght Arm] 126/69 139/70 139/76 Blood Pressure [or thostatic lying Ri ght Arm] Blood Pressure [or thostatic sitting Right Arm] Blood Pressure [or thostatic standing Right Arm] Pulse Oximetry 96 97 96 Oxygen Delivery Me thod Room Air Room Air Room Air 09/22/23 07:00 09/22/23 07:00 09/22/23 10:00 Temperature 97.9 F Pulse Rate 84 Pulse Rate [Pulse Oximeter] 82 Pulse Rate [orthos tatic lying Right Brachial] 68 Pulse Rate [orthos tatic sitting Righ t Brachial] 72 Pulse Rate [orthos tatic standing Rig ht Brachial] 84 Respiratory Rate 20 Blood Pressure [Ri ght Arm] 140/75 H Blood Pressure [or thostatic lying Ri ght Arm] 134/78 Blood Pressure [or thostatic sitting Right Arm] 142/69 H Blood Pressure [or thostatic standing Right Arm] 130/69 Pulse Oximetry 98 Oxygen Delivery Me thod Room Air 09/22/23 11:00 09/22/23 14:30 Temperature 97.9 F Pulse Rate Pulse Rate [Pulse Oximeter] 65 Pulse Rate [orthos tatic lying Right Brachial] 71 Pulse Rate [orthos tatic sitting Righ t Brachial] 75 Pulse Rate [orthos tatic standing Rig ht Brachial] 90 Respiratory Rate 20 Blood Pressure [Ri ght Arm] 134/77 Blood Pressure [or thostatic lying Ri ght Arm] 148/73 H Blood Pressure [or thostatic sitting Right Arm] 137/73 Blood Pressure [or thostatic standing Right Arm] 135/70 Pulse Oximetry 98 Oxygen Delivery Me thod Room Air Labs Labs: Laboratory Results - last 24 hr 09/22/23 05:43 VBG pH 7.469 H VBG pCO2 33 L VBG pO2 106.0 H VBG HCO3 24 Sodium 132 L Potassium 3.8 Chloride 104 Carbon Dioxide 24 Anion Gap 4 L BUN 18 Creatinine 0.8 Estimated Creat Clear 29.61 Estimated GFR 72 Glucose 74 Calcium 8.5
--- NOTE | 2023-09-22 19:40 | PC.NURSE ---
End of shift [id number] - Pt alert, oriented, cooperative during shift. Pt up to bathroom and walking halls with walker and standby assist. Continent of bowel and bladder. Tolerating RA, regular diet. Denies pain, dizziness, SOB. RN provided education regarding blood glucose levels and interventions for management with verbalized understanding. Pt appears to be resting comfortably at end of shift.
[2023-09-22] MEDS: COENZYME Q10 100 MG CAPSULE PO (21:03)
[2023-09-23] VITALS (9 sets, daily range): BP systolic 116–150; BP diastolic 61–91; PULSE 64–89; RESP 16–20; TEMP 36.4–36.8; O2SAT 95–98
[2023-09-23] MEDS: INSULIN ASPART 100 UNIT/ML SUBCUT ×7 (01:40→16:51)
[2023-09-23] MEDS: LEVOTHYROXINE 75 MCG TABLET PO (06:05)
--- NOTE | 2023-09-23 06:40 | PC.NURSE ---
Shift note [id number]: Pt noted to be hard of hearing at times with hx of documented dementia noted. Blood sugar elevated at 370 at HS with pt denying symptoms of hyperglycemia when asked and no signs of hyperglycemia noted. Ostomy emptied frequently due to pt having loose stool and gas accumulation. She has otherwise been continent of bladder. Pt able to reposition independently in bed and is SBA with transferring/ambulation. Pt has been refusing to use gait belt with transferring/ambulation despite staff encouragement and education provided. Pt needing education and reminders to be compliant with fluid restriction per current order in place and why it has been ordered. Blood glucose noted to be 276 when checked before 0200 with scheduled SS insulin administered per order in place. Pt has been denying pain when asked. VSS and pt has been afebrile. Daily weight of 100 pounds on standing scale. Pt alert & oriented x 4 and able to make needs known- has been using call light appropriately.
[2023-09-23 06:50] LABS: HCO3 VBG 21 mmol/L (21-28); PCO2 VBG 31 mmHG (40-50); pH VBG 7.446 (7.32-7.43)
[2023-09-23 07:24] LABS: Chloride* 101 mmol/L (96-114); Sodium* 128 mmol/L (135-149)
[2023-09-23 07:27] LABS: Anion Gap 7 mEq/L (7-15); Carbon Dioxide* 20 mmol/L (20-32); Creatinine* 0.8 mg/dL (0.5-1.5); Est. Creatinine Clearance* 28.92; Estimated Glomerular Filt Rate 72 ml/min
[2023-09-23 07:28] LABS: Blood Urea Nitrogen* 20 mg/dL (7-30); Calcium* 8.5 mg/dL (8.4-10.6); Glucose* 215 mg/dL (60-115)
[2023-09-23] MEDS: HYDROCORTISONE 10 MG TABLET 15 MG PO (07:59)
[2023-09-23] MEDS: LACTOBACILLUS ACIDOPHILUS 1 TABLET 2 TAB PO ×3 (08:00→18:10)
[2023-09-23] MEDS: SODIUM BICARBONATE 650 MG TABLET PO ×3 (08:00→18:11)
[2023-09-23] MEDS: DIPHENOXYLATE-ATROP 2.5-0.025 TABLET 1 TAB PO ×4 (08:59→21:22)
[2023-09-23] MEDS: MULTIVITAMIN/MINERALS 1 TABLET 1 TAB PO (09:00)
[2023-09-23] MEDS: PSYLLIUM HUSK (WITH SUGAR) 12 GM PACKET PO ×3 (09:00→21:22)
[2023-09-23] MEDS: FLUDROCORTISONE ACETATE 0.1 MG TABLET PO (09:00)
[2023-09-23] MEDS: LOPERAMIDE HCL 2 MG CAPSULE 4 MG PO ×4 (09:00→21:22)
[2023-09-23] MEDS: APIXABAN 5 MG TABLET 2.5 MG PO ×2 (09:00→21:21)
[2023-09-23] MEDS: SIMETHICONE 80 MG TAB.CHEW PO ×2 (09:00→21:21)
[2023-09-23] MEDS: CHOLESTYRAMINE POWDER 4 GM PO (09:01)
[2023-09-23] MEDS: SERTRALINE 50 MG TABLET PO (09:01)
[2023-09-23] MEDS: SODIUM CHLORIDE 0.9 % (FLUSH) 10 ML SYRINGE 5 ML IVF ×2 (09:01→21:23)
--- NOTE | 2023-09-23 12:00 | PC.SOCIAL ---
Received an e-mail from Catherine at [facility] requesting information on discharge plans. Per MD, pt is not cleared for discharge today. Provided update to Catherine in admissions at [facility]. Social work will keep [facility] updated on pt progress and discharge plans.
[2023-09-23] MEDS: ASPIRIN 81 MG TAB.CHEW PO (12:14)
[2023-09-23] MEDS: MORPHINE 10 MG/0.5 ML ORAL SOLN 5 MG PO ×2 (14:36→21:22)
[2023-09-23] MEDS: HYDROCORTISONE 10 MG TABLET PO (16:36)
--- NOTE | 2023-09-23 17:15 | P.IMPN_ITS ---
Progress Note: A&P Assessment and plan (1) Addisonian crisis: Problem details: - Patient presents with hypotension hyperkalemia hyponatremia and vomiting consistent with addisonian or adrenal insufficiency crisis. Cause for this is uncertain. - Other medical problems that could contribute to this are new AFib with RVR, high output from ostomy, poor oral intake, urinary tract infection, undiagnosed liver/biliary disease. Continue to evaluate all of these. - Continue with fludrocortisone 0.1 mg daily. - initially treated with stress doses of hydrocortisone. Presently on 15 mg oral hydrocortisone every morning and 10 mg every evening. 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 Some improvement. Continue sodium bicarb 650 mg p.o. t.i.d., consider increasing dose to q.i.d.. Status: Acute (3) Hyperkalemia: Problem details: - Secondary to RTA type 4 - Improving. Status: Acute (4) Atrial fibrillation: Problem details: - New diagnosis. Initiated renal dose Eliquis and rate control. - transthoracic echocardiogram 09/18/2023: Normal LV chamber size, normal wall thickness, hyperdynamic systolic function, EF 81%. Mild left atrial e nlargement. Mild to moderate tricuspid regurgitation. Status: Acute (5) Diabetes mellitus type 1: Problem details: - Continue LA insulin, mealtime insulin and ISS. - ongoing dose adjustments in insulin due to morning hypoglycemia. - I am suspicious that her gastroparesis in conjunction with her high output ostomy causes decrease absorption of carbohydrates, protein, fat. This may be contributing to the hypoglycemia as well. Status: Chronic (6) Ileostomy in place: Problem details: - Monitor for output. Monitor weights. - 09/20/23 started Lomotil again. - cholestyramine started 09/20/2023. - 09/21/2023 initiated t.i.d. atropine with diphenoxylate - 09/23/23 I initiated her morphine once again. Had previously been on 15 mg of extended release morphine twice daily. This was stopped on this admission. Today I am restarting morphine, concentrate solution, 5 mg q.i.d.. Today I also increase the dose of the cholestyramine and diphenoxylate with atropine. Status: Chronic (7) Elevated liver transaminase level: Problem details: History of cholecystectomy. Cause of elevated LFTs is unknown Status: Acute (8) Chronic hyponatremia: Problem details: - her baseline is high 120's. Improving with sodium bicarb and hydrocortisone for adrenal insufficiency. Status: Acute (9) Diabetic gastroparesis: Problem details: Monitor oral intake Status: Chronic (10) Orthostasis: Problem details: - multifactorial - continue with treatment for [place]'s including fludrocortisone - 09/21/2023: Normal saline 1 L over 2 hours. Reassess orthostatics in the morning. - 09/22/2023: Continue to monitor orthostatic blood pressures and pulses. Status: Acute (11) Physical deconditioning: Problem details: - chronic - continue with efforts to try to help her remain is independent she can as long as she can. 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 Reviewed with patient 2. Colon discussed case with her daughter, Gianna, at [phone]. 3. Continue with efforts to try to stabilize her high-output ostomy. I suspect that the discontinuation of the morphine had a lot to do with her ostomy output increasing while here in the hospital. Am restarting the morphine at this time as specified above. Time Spent With Patient Total time spent: 45 minutes Subjective Date Seen: 09/23/23 Interval history: Hospital day 6. Continues to have high output from her ostomy. I/O 1500/2300. Weight steady at 45 kg. Complains of persistent lightheadedness, not necessarily with orthostasis today. Eating and drinking. A little more comfortable today than yesterday. Exam Narrative: Exam Narrative: Examined patient in her room. Appears comfortable no acute distress. Alert and oriented to self, place, in part to time, part to situation. Friendly, articulate, cooperative. Lungs clear to auscultation. Heart tones with regular rhythm. Abdomen with active bowel sounds, soft, nontender. Extremities without edema. Patient walks in the hallway with standby assist. Const: Vital Signs, click to edit/add: Vital Signs - 24 hr 09/22/23 19:46 09/22/23 23:00 09/22/23 23:00 Temperature 98.4 F 97.9 F Pulse Rate Pulse Rate [Pulse Oximeter] 76 72 72 Pulse Rate [orthos tatic lying Right Brachial] Pulse Rate [orthos tatic sitting Righ t Brachial] Pulse Rate [orthos tatic standing Rig ht Brachial] Respiratory Rate 18 18 18 Blood Pressure [Ri ght Arm] 112/76 139/59 L Blood Pressure [or thostatic lying Ri ght Arm] Blood Pressure [or thostatic sitting Right Arm] Blood Pressure [or thostatic standing Right Arm] Pulse Oximetry 96 95 Oxygen Delivery Me thod Room Air Room Air 09/23/23 01:45 09/23/23 03:00 09/23/23 07:00 Temperature 98.0 F 98.2 F Pulse Rate 67 Pulse Rate [Pulse Oximeter] 80 70 Pulse Rate [orthos tatic lying Right Brachial] Pulse Rate [orthos tatic sitting Righ t Brachial] Pulse Rate [orthos tatic standing Rig ht Brachial] Respiratory Rate 16 16 Blood Pressure [Ri ght Arm] 150/82 H 134/64 Blood Pressure [or thostatic lying Ri ght Arm] Blood Pressure [or thostatic sitting Right Arm] Blood Pressure [or thostatic standing Right Arm] Pulse Oximetry 97 98 Oxygen Delivery Me thod Room Air Room Air 09/23/23 08:01 09/23/23 11:00 09/23/23 13:10 Temperature 98.2 F Pulse Rate 69 Pulse Rate [Pulse Oximeter] 80 Pulse Rate [orthos tatic lying Right Brachial] 64 Pulse Rate [orthos tatic sitting Righ t Brachial] 75 Pulse Rate [orthos tatic standing Rig ht Brachial] 89 Respiratory Rate 20 Blood Pressure [Ri ght Arm] 134/75 Blood Pressure [or thostatic lying Ri ght Arm] 126/61 Blood Pressure [or thostatic sitting Right Arm] 136/73 Blood Pressure [or thostatic standing Right Arm] 130/72 Pulse Oximetry 98 Oxygen Delivery Me thod Room Air 09/23/23 15:00 09/23/23 15:00 Temperature Pulse Rate 71 Pulse Rate [Pulse Oximeter] 64 Pulse Rate [orthos tatic lying Right Brachial] Pulse Rate [orthos tatic sitting Righ t Brachial] Pulse Rate [orthos tatic standing Rig ht Brachial] Respiratory Rate 20 Blood Pressure [Ri ght Arm] 126/61 Blood Pressure [or thostatic lying Ri ght Arm] Blood Pressure [or thostatic sitting Right Arm] Blood Pressure [or thostatic standing Right Arm] Pulse Oximetry 97 Oxygen Delivery Me thod Room Air Documenting provider has reviewed patient's vital signs: yes Labs Labs: Laboratory Results - last 24 hr 09/23/23 06:25 VBG pH 7.446 H VBG pCO2 31 L VBG pO2 73.0 H VBG HCO3 21 Sodium 128 L Potassium 4.0 Chloride 101 Carbon Dioxide 20 Anion Gap 7 BUN 20 Creatinine 0.8 Estimated Creat Clear 28.92 Estimated GFR 72 Glucose 215 H Calcium 8.5
--- NOTE | 2023-09-23 18:44 | PC.NURSE ---
End of shift [id number] - Pt alert, oriented, cooperative during shift. Pt experienced episodes of recent memory impairment as evidenced by repetitive questions/statements. Pt up to bathroom and chair with walker and standby assist. Continent of bladder. Ostomy required burping and emptying frequently during shift, volume recorded. Pt tolerating RA, regular diet. Denied pain, SOB, nausea. Pt reported feeling weak and lightheaded during day. MD notified, pt reported bed and chair rest improved condition. RN provided education regarding fatigue and lightheadedness as related to fluid volume deficit with verbalized understanding. Family provided update via phone call to RN. Pt appears to be resting comfortably at end of shift.
[2023-09-23] MEDS: COENZYME Q10 100 MG CAPSULE PO (21:22)
[2023-09-23] MEDS: CHOLESTYRAMINE POWDER 4 GM 8 GM PO (21:23)
--- NOTE | 2023-09-23 22:37 | PC.NURSE ---
End of Shift: Patient pleasant and cooperative. Afebrile. Denies pain. Up with SBA and walker. Ostomy emptied frequently.
[2023-09-24] VITALS (8 sets, daily range): BP systolic 108–135; BP diastolic 47–81; PULSE 63–101; RESP 16–20; TEMP 36.4–36.9; O2SAT 94–100
[2023-09-24] MEDS: INSULIN ASPART 100 UNIT/ML SUBCUT ×6 (01:41→17:30)
[2023-09-24 06:28] LABS: Hemoglobin* 12.2 gm/dL (12.0-16.0)
[2023-09-24] MEDS: LEVOTHYROXINE 75 MCG TABLET PO (06:36)
[2023-09-24 06:52] LABS: Chloride* 101 mmol/L (96-114); Potassium* 4.2 mmol/L (3.6-5.1); Sodium* 129 mmol/L (135-149)
[2023-09-24 06:55] LABS: Anion Gap 10 mEq/L (7-15); Blood Urea Nitrogen* 25 mg/dL (7-30); Carbon Dioxide* 18 mmol/L (20-32); Creatinine* 0.9 mg/dL (0.5-1.5); Est. Creatinine Clearance* 27.51; Estimated Glomerular Filt Rate 62 ml/min
[2023-09-24 06:56] LABS: Glucose* 182 mg/dL (60-115)
[2023-09-24] MEDS: SODIUM BICARBONATE 650 MG TABLET PO ×3 (07:46→17:32)
[2023-09-24] MEDS: LACTOBACILLUS ACIDOPHILUS 1 TABLET 2 TAB PO ×3 (07:46→17:31)
[2023-09-24] MEDS: HYDROCORTISONE 10 MG TABLET 15 MG PO (07:47)
--- NOTE | 2023-09-24 07:50 | PC.NURSE ---
Pt alert and oriented x3, but is forgetful at times. Pt's colostomy bag was changed around 0600 after having some leakage. Pt had 500 ml of stool out over night. The first two times of changing the ostomy bag the bm's were soft stools then they returned to liquid around 0500. Pt is up SBA, tolerating a 2000ml fluid restriction. Pt slept throughout most of night. BS at 0200 was 244, 2 units of insulin given.
[2023-09-24] MEDS: LOPERAMIDE HCL 2 MG CAPSULE 4 MG PO ×4 (08:24→21:40)
[2023-09-24] MEDS: FLUDROCORTISONE ACETATE 0.1 MG TABLET PO (08:24)
[2023-09-24] MEDS: SERTRALINE 50 MG TABLET PO (08:24)
[2023-09-24] MEDS: MULTIVITAMIN/MINERALS 1 TABLET 1 TAB PO (08:25)
[2023-09-24] MEDS: SIMETHICONE 80 MG TAB.CHEW PO ×2 (08:25→21:40)
[2023-09-24] MEDS: MORPHINE 10 MG/0.5 ML ORAL SOLN 5 MG PO ×2 (08:25→12:36)
[2023-09-24] MEDS: APIXABAN 5 MG TABLET 2.5 MG PO ×2 (08:25→21:39)
[2023-09-24] MEDS: DIPHENOXYLATE-ATROP 2.5-0.025 TABLET 1 TAB PO ×4 (08:25→21:39)
[2023-09-24] MEDS: CHOLESTYRAMINE POWDER 4 GM 8 GM PO ×2 (08:26→21:40)
[2023-09-24] MEDS: PSYLLIUM HUSK (WITH SUGAR) 12 GM PACKET PO ×3 (08:26→21:40)
[2023-09-24] MEDS: SODIUM CHLORIDE 0.9 % (FLUSH) 10 ML SYRINGE 5 ML IVF ×2 (08:28→21:41)
--- NOTE | 2023-09-24 09:54 | PC.SOCIAL ---
Discharge planning: Updated [facility] that pt is not ready for discharge today. As tomorrow is a holiday, they provided the contact information for tomorrow in case pt is ready for discharge back. Phone number to the nurse's station at [facility] is [phone]. Fax number where discharge orders should be sent is [phone]. Pt is on a bed hold at [facility], so can return when ready for discharge.
[2023-09-24] MEDS: 0.9 % SODIUM CHLORIDE 1000 ml 1,000 ML 500 ML IV (10:44)
[2023-09-24] MEDS: ASPIRIN 81 MG TAB.CHEW PO (12:34)
--- NOTE | 2023-09-24 15:23 | PC.NURSE ---
End of Shift [id number]- Pt alert, oriented to self, place, time. Displayed episodes of recent impairment evidenced by repeated statements and questions. Pt up to bathroom and chair with walker and standby assistance. Continent of bladder, ostomy bag and dressing changed during shift due to leak. Tolerating RA, regular diet and fluids. Pt denied pain, SOB, nausea. Pt reported feeling of persistent lightheadedness that improved with fluid order given per MAR. RN contacted by family for update via phone. Pt appears to be resting comfortably at end of shift.
--- NOTE | 2023-09-24 15:31 | P.IMPN_ITS ---
Progress Note: A&P Assessment and plan (1) Addisonian crisis: Problem details: - Patient presents with hypotension hyperkalemia hyponatremia and vomiting consistent with addisonian or adrenal insufficiency crisis. Cause for this is uncertain. - Other medical problems that could contribute to this are new AFib with RVR, high output from ostomy, poor oral intake, urinary tract infection, undiagnosed liver/biliary disease. Continue to evaluate all of these. - Continue with fludrocortisone 0.1 mg daily. - initially treated with stress doses of hydrocortisone. Presently on 15 mg oral hydrocortisone every morning and 10 mg every evening. 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 Some improvement. Continue sodium bicarb 650 mg p.o. t.i.d., consider increasing dose to q.i.d.. Status: Acute (3) Hyperkalemia: Problem details: - Secondary to RTA type 4 - Improving. Continue to monitor. Status: Acute (4) Atrial fibrillation: Problem details: - New diagnosis. Initiated renal dose Eliquis and rate control. - transthoracic echocardiogram 09/18/2023: Normal LV chamber size, normal wall thickness, hyperdynamic systolic function, EF 81%. Mild left atrial enlargement. Mild to moderate tricuspid regurgitation. Status: Acute (5) Diabetes mellitus type 1: Problem details: - Continue LA insulin, mealtime insulin and ISS. - ongoing dose adjustments in insulin due to morning hypoglycemia. - I am suspicious that her gastroparesis in conjunction with her high output ostomy causes decrease absorption of carbohydrates, protein, fat. This may be contributing to the hypoglycemia as well. Status: Chronic (6) Ileostomy in place: Problem details: - Monitor for output. Monitor weights. - 09/20/23 started Lomotil again. - cholestyramine started 09/20/2023. - 09/21/2023 initiated t.i.d. atropine with diphenoxylate - 09/23/23 I initiated her morphine once again. Had previously been on 15 mg of extended release morphine twice daily. This was stopped on this admission. Today I am restarting morphine, concentrate solution, 5 mg q.i.d.. Today I also increase the dose of the cholestyramine and diphenoxylate with atropine. Status: Chronic (7) Elevated liver transaminase level: Problem details: History of cholecystectomy. Cause of elevated LFTs is unknown Status: Acute (8) Chronic hyponatremia: Problem details: - her baseline is high 120's. Improving with sodium bicarb and hydrocortisone for adrenal insufficiency. Status: Acute (9) Diabetic gastroparesis: Problem details: Monitor oral intake Status: Chronic (10) Orthostasis: Problem details: - multifactorial - continue with treatment for [place]'s including fludrocortisone - 09/21/2023: Normal saline 1 L over 2 hours. Reassess orthostatics in the morning. - 09/22/2023: Continue to monitor orthostatic blood pressures and pulses. - 09/24/2023: Another normal saline 1 L IV is given over 2 hours today. Continue to monitor orthostatic blood pressures and pulses. Continue to intensi fy morphine sulfate to try to slow down high output from ostomy, in addition to [address]. Status: Acute (11) Physical deconditioning: Problem details: - chronic - continue with efforts to try to help her remain is independent she can as long as she can. 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 Reviewed with patient. She is agreeable. 2. Discussed with patient's daughter via telephone yesterday. She is agreeable. Time Spent With Patient Total time spent: 35 minutes Subjective Date Seen: 09/24/23 Interval history: Hospital day 7. Continues to have high output from her ostomy. I/O 1500/1999. Weight steady at 43.0 kg. Complains of persistent lightheadedness, not necessarily with orthostasis today. Eating and drinking. A little more comfortable today than yesterday. Exam Narrative: Exam Narrative: Examined patient in her hospital room. Appears comfortable no acute distress. Alert and oriented to self, place, time, in part to situation. Friendly, articulate, cooperative. Lungs remain clear to auscultation. Heart tones with regular rhythm. Abdomen with active bowel sounds, soft. Extremities with only trace edema pretibially bilaterally. Has orthostatic changes again. Const: Vital Signs, click to edit/add: Vital Signs - 24 hr 09/23/23 19:00 09/23/23 23:40 09/23/23 23:40 Temperature 98.2 F Pulse Rate 67 Pulse Rate [Pulse Oximeter] 67 72 Pulse Rate [orthos tatic lying Right Brachial] Pulse Rate [orthos tatic sitting Righ t Brachial] Pulse Rate [orthos tatic standing Rig ht Brachial] Respiratory Rate 20 18 Blood Pressure [Ri ght Arm] 116/91 H Blood Pressure [or thostatic lying Ri ght Arm] Blood Pressure [or thostatic sitting Right Arm] Blood Pressure [or thostatic standing Right Arm] Pulse Oximetry 96 Oxygen Delivery Me thod Room Air 09/23/23 23:40 09/24/23 01:30 09/24/23 07:00 Temperature 97.6 F 98.2 F 97.6 F Pulse Rate Pulse Rate [Pulse Oximeter] 72 73 75 Pulse Rate [orthos tatic lying Right Brachial] Pulse Rate [orthos tatic sitting Righ t Brachial] Pulse Rate [orthos tatic standing Rig ht Brachial] Respiratory Rate 18 16 20 Blood Pressure [Ri ght Arm] 116/91 H 133/68 125/81 Blood Pressure [or thostatic lying Ri ght Arm] Blood Pressure [or thostatic sitting Right Arm] Blood Pressure [or thostatic standing Right Arm] Pulse Oximetry 95 94 97 Oxygen Delivery Me thod Room Air Room Air Room Air 09/24/23 08:00 09/24/23 10:11 09/24/23 11:00 Temperature 98.1 F Pulse Rate 80 Pulse Rate [Pulse Oximeter] 78 Pulse Rate [orthos tatic lying Right Brachial] 77 Pulse Rate [orthos tatic sitting Righ t Brachial] 86 Pulse Rate [orthos tatic standing Rig ht Brachial] 101 H Respiratory Rate 16 Blood Pressure [Ri ght Arm] 110/47 L Blood Pressure [or thostatic lying Ri ght Arm] 108/58 L Blood Pressure [or thostatic sitting Right Arm] 120/62 Blood Pressure [or thostatic standing Right Arm] 116/54 L Pulse Oximetry 97 Oxygen Delivery Me thod Room Air Labs Labs: Laboratory Results - last 24 hr 09/24/23 06:05 Hgb 12.2 Sodium 129 L Potassium 4.2 Chloride 101 Carbon Dioxide 18 L Anion Gap 10 BUN 25 Creatinine 0.9 Estimated Creat Clear 27.51 Estimated GFR 62 Glucose 182 H Calcium 9.0
[2023-09-24] MEDS: HYDROCORTISONE 10 MG TABLET PO (16:04)
[2023-09-24] MEDS: MORPHINE 10 MG/0.5 ML ORAL SOLN PO ×2 (17:15→21:41)
[2023-09-24] MEDS: COENZYME Q10 100 MG CAPSULE PO (21:39)
[2023-09-25] VITALS (7 sets, daily range): BP systolic 114–134; BP diastolic 62–74; PULSE 57–95; RESP 16–18; TEMP 36.6–36.7; O2SAT 98–99
--- NOTE | 2023-09-25 00:07 | PC.NURSE ---
End of shift nursing note: Pt alert and oriented, at times repetitive statements. Vitals stable, on RA. Pt denies pain. Up SBA w/ walker to chair, bed and bathroom. Ostomy bag frequently checked, burped and emptied PRN. Last empty at 2250 tonight noted to have thicker stool, oncoming nurse notified to monitor to potentially hold ordered/scheduled loperamide per order. BG 241 then 144 prior to bed. Had evening snack per request, adequate appetite this shift. Compliant with fluid restriction. Very pleasant and cooperative. IV flushed, patent and saline locked. Pt has call light within reach and has used appropriately this shift.
[2023-09-25] MEDS: ONDANSETRON 2 MG/ML inj 4 MG IVP (02:24)
--- NOTE | 2023-09-25 06:01 | PC.NURSE ---
Shift note: Pt is doing well. Ostomy content is loose but thicker than previous day and emptied 3x tonight with total out of 350ml. Pt is alert and oriented. Ambulated with A1, walker and GB. Vitally stable, Pt reported of feeling nauseated at 0200, Zofran given IV, no pain and SOB reported. Blood sugar level at 0200 was 259 but pt refused insulin, said it is ok for my blood sugar to fall within 200.
[2023-09-25 06:57] LABS: Hemoglobin* 11.1 gm/dL (12.0-16.0)
[2023-09-25 07:26] LABS: Chloride* 101 mmol/L (96-114)
[2023-09-25 07:27] LABS: Potassium* 4.7 mmol/L (3.6-5.1); Sodium* 126 mmol/L (135-149)
[2023-09-25 07:29] LABS: Creatinine* 0.9 mg/dL (0.5-1.5); Est. Creatinine Clearance* 28.37; Estimated Glomerular Filt Rate 62 ml/min
[2023-09-25 07:30] LABS: Anion Gap 7 mEq/L (7-15); Blood Urea Nitrogen* 24 mg/dL (7-30); Calcium* 8.4 mg/dL (8.4-10.6); Carbon Dioxide* 18 mmol/L (20-32); Glucose* 316 mg/dL (60-115)
[2023-09-25] MEDS: LEVOTHYROXINE 75 MCG TABLET PO (07:59)
[2023-09-25] MEDS: INSULIN ASPART 100 UNIT/ML SUBCUT ×5 (08:01→17:28)
[2023-09-25] MEDS: LOPERAMIDE HCL 2 MG CAPSULE 4 MG PO ×4 (09:23→21:27)
[2023-09-25] MEDS: LACTOBACILLUS ACIDOPHILUS 1 TABLET 2 TAB PO ×3 (09:23→17:20)
[2023-09-25] MEDS: FLUDROCORTISONE ACETATE 0.1 MG TABLET PO (09:23)
[2023-09-25] MEDS: HYDROCORTISONE 10 MG TABLET 15 MG PO (09:23)
[2023-09-25] MEDS: MULTIVITAMIN/MINERALS 1 TABLET 1 TAB PO (09:24)
[2023-09-25] MEDS: DIPHENOXYLATE-ATROP 2.5-0.025 TABLET 1 TAB PO ×4 (09:24→21:27)
[2023-09-25] MEDS: SERTRALINE 50 MG TABLET PO (09:24)
[2023-09-25] MEDS: SIMETHICONE 80 MG TAB.CHEW PO ×2 (09:24→21:27)
[2023-09-25] MEDS: APIXABAN 5 MG TABLET 2.5 MG PO ×2 (09:24→21:27)
[2023-09-25] MEDS: CHOLESTYRAMINE POWDER 4 GM 8 GM PO ×2 (09:25→21:38)
[2023-09-25] MEDS: MORPHINE 10 MG/0.5 ML ORAL SOLN PO ×4 (09:25→21:30)
[2023-09-25] MEDS: PSYLLIUM HUSK (WITH SUGAR) 12 GM PACKET PO ×3 (09:25→21:30)
[2023-09-25] MEDS: SODIUM BICARBONATE 650 MG TABLET PO ×3 (09:31→17:22)
[2023-09-25] MEDS: SODIUM CHLORIDE 0.9 % (FLUSH) 10 ML SYRINGE 5 ML IVF ×2 (09:37→21:31)
[2023-09-25] MEDS: ASPIRIN 81 MG TAB.CHEW PO (12:01)
[2023-09-25] MEDS: SODIUM CHLORIDE 1 GM TABLET PO ×3 (14:46→21:31)
--- NOTE | 2023-09-25 15:08 | PC.NURSE ---
End of shift: patient is pleasant and cooperative with cares. ambulates SBA with walker to BR. Ostomy emptied throughout shift. Patient on scheduled morphine and tolerating well. IV L AC SL. BG 284, 248 and sliding scale used. see eMAR.
--- NOTE | 2023-09-25 15:14 | PM.IMPN1 ---
Progress Note: A&P Assessment and plan (1) Addisonian crisis: Problem details: - Patient presents with hypotension hyperkalemia hyponatremia and vomiting consistent with addisonian or adrenal insufficiency crisis. Cause for this is uncertain. - Other medical problems that could contribute to this are new AFib with RVR, high output from ostomy, poor oral intake, urinary tract infection, undiagnosed liver/biliary disease. Continue to evaluate all of these. - Continue with fludrocortisone 0.1 mg daily. - initially treated with stress doses of hydrocortisone. Presently on 15 mg oral hydrocortisone every morning and 10 mg every evening. 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 Some improvement. Continue sodium bicarb 650 mg p.o. t.i.d., consider increasing dose to q.i.d.. Status: Acute (3) Hyperkalemia: Problem details: - Secondary to RTA type 4 - Improving. Continue to monitor. Status: Acute (4) Atrial fibrillation: Problem details: - New diagnosis. Initiated renal dose Eliquis and rate control. - transthoracic echocardiogram 09/18/2023: Normal LV chamber size, normal wall thickness, hyperdynamic systolic function, EF 81%. Mild left atrial enlargement. Mild to moderate tricuspid regurgitation. Status: Acute (5) Diabetes mellitus type 1: Problem details: - Continue LA insulin, mealtime insulin and ISS. Continue with dose adjustments. - ongoing dose adjustments in insulin due to morning hypoglycemia and more recently with hyperglycemia. - I am suspicious that her gastroparesis in conjunction with her high output ostomy causes decrease absorption of carbohydrates, protein, fat. This may be contributing to the hypoglycemia as well. Status: Chronic (6) Ileostomy in place: Problem details: - Monitor for output. Monitor weights. - 09/20/23 started Lomotil again. - cholestyramine started 09/20/2023. - 09/21/2023 initiated t.i.d. atropine with diphenoxylate - 09/23/23 I initiated her morphine once again. Had previously been on 15 mg of extended release morphine twice daily. This was stopped on this admission. Today I am restarting morphine, concentrate solution, 5 mg q.i.d.. Today I also increase the dose of the cholestyramine and diphenoxylate with atropine. Status: Chronic (7) Elevated liver transaminase level: Problem details: History of cholecystectomy. Cause of elevated LFTs is unknown Status: Acute (8) Chronic hyponatremia: Problem details: - her baseline is high 120's. Improving with sodium bicarb and hydrocortisone for adrenal insufficiency. Status: Acute (9) Diabetic gastroparesis: Problem details: Monitor oral intake Status: Chronic (10) Orthostasis: Problem details: - multifactorial - continue with treatment for [place]'s including fludrocortisone - 09/21/2023: Normal saline 1 L over 2 hours. Reassess orthostatics in the morning. - 09/22/2023: Continue to monitor orthostatic blood pressures and pulses. - 09/24/2023: Another normal saline 1 L IV is given over 2 hours today. Continue to monitor orthostatic blood pressures and pulses. Continue to intensify morphine sulfate to try to slow down high output from ostomy, in addition to [address]. - 09/25/2023: Continue with current regimen and monitoring. Status: Acute (11) Physical deconditioning: Problem details: - chronic - continue with efforts to try to help her remain is independent she can as long as she can. Status: Acute (12) Frailty syndrome in geriatric patient: Problem details: - resides in [facility] longterm facility. Will return there when she is deemed medically stable enough to return. Bed is on hold. Status: Acute Plan 1. Reviewed impression with patient 2. Answered patient's questions to her satisfaction. 3. Continue with current regimen and monitoring. Time Spent With Patient Total time spent: 35 minute Subjective Date Seen: 09/25/23 Interval history: Hospital day 8. Ostomy output is seemingly decreasing, I/O yesterday 1200/1100. Weight steady at 44.5 kg. Complains of persistent lightheadedness, not necessarily with orthostasis - possibly related to medications. Eating and drinking. Blood sugars mid 100s to mid 200s, no longer hypoglycemic. Seemingly eating more now than previously. A little more comfortable today than yesterday. Exam Narrative: Exam Narrative: No orthostatic changes in blood pressure and heart rate today. No orthostasis either. Does not require additional IV fluid today. I examine her in her room. She appears comfortable no acute distress. Vision and hearing are grossly normal. Alert, oriented to self, place, time, situation. Friendly, articulate, cooperative. Lungs are clear to auscultation. Heart tones with regular rhythm. Abdomen with active bowel sounds, soft, nontender. Extremities without edema. Moves all 4 extremities. Ambulates the halls with walker and standby assist. Const: Vital Signs, click to edit/add: Vital Signs - 24 hr 09/24/23 15:45 09/24/23 15:45 09/24/23 15:45 Temperature 98.2 F Pulse Rate 63 Pulse Rate [Pulse Oximeter] 63 65 Pulse Rate [orthos tatic lying Right Brachial] Pulse Rate [orthos tatic sitting Righ t Brachial] Pulse Rate [orthos tatic standing Rig ht Brachial] Respiratory Rate 16 16 Blood Pressure [Ri ght Arm] 135/64 Blood Pressure [or thostatic lying Ri ght Arm] Blood Pressure [or thostatic sitting Right Arm] Blood Pressure [or thostatic standing Right Arm] Pulse Oximetry 100 Oxygen Delivery Me thod Room Air 09/24/23 19:00 09/24/23 23:00 09/24/23 23:00 Temperature 98.4 F Pulse Rate 63 Pulse Rate [Pulse Oximeter] 70 70 Pulse Rate [orthos tatic lying Right Brachial] Pulse Rate [orthos tatic sitting Righ t Brachial] Pulse Rate [orthos tatic standing Rig ht Brachial] Respiratory Rate 16 16 Blood Pressure [Ri ght Arm] 109/77 Blood Pressure [or thostatic lying Ri ght Arm] Blood Pressure [or thostatic sitting Right Arm] Blood Pressure [or thostatic standing Right Arm] Pulse Oximetry 97 Oxygen Delivery Me thod Room Air 09/24/23 23:00 09/25/23 02:40 09/25/23 07:00 Temperature 97.8 F 97.9 F Pulse Rate 95 Pulse Rate [Pulse Oximeter] 65 57 L Pulse Rate [orthos tatic lying Right Brachial] Pulse Rate [orthos tatic sitting Righ t Brachial] Pulse Rate [orthos tatic standing Rig ht Brachial] Respiratory Rate 16 16 Blood Pressure [Ri ght Arm] 123/59 L 118/65 Blood Pressure [or thostatic lying Ri ght Arm] Blood Pressure [or thostatic sitting Right Arm] Blood Pressure [or thostatic standing Right Arm] Pulse Oximetry 97 98 Oxygen Delivery Me thod Room Air Room Air 09/25/23 07:00 09/25/23 07:00 09/25/23 08:00 Temperature 97.9 F Pulse Rate Pulse Rate [Pulse Oximeter] 68 68 Pulse Rate [orthos tatic lying Right Brachial] 69 Pulse Rate [orthos tatic sitting Righ t Brachial] 76 Pulse Rate [orthos tatic standing Rig ht Brachial] 81 Respiratory Rate 16 16 Blood Pressure [Ri ght Arm] 116/70 Blood Pressure [or thostatic lying Ri ght Arm] 123/62 Blood Pressure [or thostatic sitting Right Arm] 119/68 Blood Pressure [or thostatic standing Right Arm] 114/63 Pulse Oximetry 99 Oxygen Delivery Me thod Room Air 09/25/23 11:00 Temperature 97.9 F Pulse Rate Pulse Rate [Pulse Oximeter] 69 Pulse Rate [orthos tatic lying Right Brachial] Pulse Rate [orthos tatic sitting Righ t Brachial] Pulse Rate [orthos tatic standing Rig ht Brachial] Respiratory Rate 16 Blood Pressure [Ri ght Arm] 126/74 Blood Pressure [or thostatic lying Ri ght Arm] Blood Pressure [or thostatic sitting Right Arm] Blood Pressure [or thostatic standing Right Arm] Pulse Oximetry 99 Oxygen Delivery Me thod Room Air Labs Labs: Laboratory Results - last 24 hr 09/25/23 06:18 Hgb 11.1 L Sodium 126 L Potassium 4.7 Chloride 101 Carbon Dioxide 18 L Anion Gap 7 BUN 24 Creatinine 0.9 Estimated Creat Clear 28.37 Estimated GFR 62 Glucose 316 H Calcium 8.4
[2023-09-25] MEDS: HYDROCORTISONE 10 MG TABLET PO (16:14)
[2023-09-25] MEDS: COENZYME Q10 100 MG CAPSULE PO (21:27)
--- NOTE | 2023-09-25 22:29 | PC.NURSE ---
End of Shift: Patient is alert and orientated.. although has confusion at times. SBA w/ RW. R ostomy draining semi formed stool this shift. No insulin coverage needed for Blood sugars this shift. We walked around the unit this shift.. she tolerated it well. Ate most of dinner. Border sacral Mepilex was applied due to redness. No other concerns at this time. Call light within reach. TASHA LANDRY BSN
[2023-09-26 03:00] VITALS: BP 131/82; PULSE 66; RESP 18; TEMP 36.6; O2SAT 97
--- NOTE | 2023-09-26 05:08 | PC.NURSE ---
Shift note: Pt had semi-solid stool in the ostomy bag. No pain and fever reported. Vitally stable. Ambulate with A1 with walker. Alert and oriented
[2023-09-26 06:57] LABS: Hemoglobin* 11.3 gm/dL (12.0-16.0)
[2023-09-26 07:00] VITALS: BP 130/64; PULSE 63; RESP 16; TEMP 36.4; O2SAT 100
[2023-09-26 07:33] LABS: Chloride* 101 mmol/L (96-114); Sodium* 129 mmol/L (135-149)
[2023-09-26 07:34] LABS: Potassium* 4.7 mmol/L (3.6-5.1)
[2023-09-26 07:36] LABS: Creatinine* 0.9 mg/dL (0.5-1.5); Est. Creatinine Clearance* 28.43; Estimated Glomerular Filt Rate 62 ml/min
[2023-09-26 07:37] LABS: Anion Gap 10 mEq/L (7-15); Blood Urea Nitrogen* 20 mg/dL (7-30); Calcium* 8.9 mg/dL (8.4-10.6); Carbon Dioxide* 18 mmol/L (20-32); Glucose* 200 mg/dL (60-115)
[2023-09-26] MEDS: LEVOTHYROXINE 75 MCG TABLET PO (07:49)
[2023-09-26] MEDS: LACTOBACILLUS ACIDOPHILUS 1 TABLET 2 TAB PO ×3 (07:49→17:46)
[2023-09-26] MEDS: INSULIN ASPART 100 UNIT/ML SUBCUT ×5 (07:50→17:45)
[2023-09-26] MEDS: HYDROCORTISONE 10 MG TABLET 15 MG PO (07:54)
[2023-09-26] MEDS: SODIUM BICARBONATE 650 MG TABLET PO ×3 (07:55→17:46)
[2023-09-26] MEDS: SIMETHICONE 80 MG TAB.CHEW PO (09:44)
[2023-09-26] MEDS: MORPHINE 10 MG/0.5 ML ORAL SOLN PO ×2 (09:44→12:24)
[2023-09-26] MEDS: PSYLLIUM HUSK (WITH SUGAR) 12 GM PACKET PO ×3 (09:44→21:10)
[2023-09-26] MEDS: CHOLESTYRAMINE POWDER 4 GM 8 GM PO ×2 (09:44→21:11)
[2023-09-26] MEDS: MULTIVITAMIN/MINERALS 1 TABLET 1 TAB PO (09:45)
[2023-09-26] MEDS: DIPHENOXYLATE-ATROP 2.5-0.025 TABLET 1 TAB PO ×4 (09:45→21:06)
[2023-09-26] MEDS: LOPERAMIDE HCL 2 MG CAPSULE 4 MG PO ×4 (09:45→21:10)
[2023-09-26] MEDS: SERTRALINE 50 MG TABLET PO (09:45)
[2023-09-26] MEDS: SODIUM CHLORIDE 1 GM TABLET PO ×3 (09:45→21:10)
[2023-09-26] MEDS: APIXABAN 5 MG TABLET 2.5 MG PO ×2 (09:45→21:07)
[2023-09-26] MEDS: SODIUM CHLORIDE 0.9 % (FLUSH) 10 ML SYRINGE 5 ML IVF ×2 (09:46→21:13)
[2023-09-26 11:00] VITALS: BP 127/67; PULSE 65; RESP 18; TEMP 36.3; O2SAT 99
--- NOTE | 2023-09-26 11:35 | NUTR.NU ---
Nutrition Follow-up: RDN visited with patient whom reports doing well. She has been enjoying the food. Current diet Regular with 2L fluid restriction. Intakes have been between 75-100% recently. Weight has remained stable at around 98 lbs. Patient being offered a snack around 1500 daily, however per nursing documentation patient has been refusing. Patient reports still wanting a snack offered at 1500. Continue to do so. No other nutrition interventions at this time. Plan for patient to discharge back to [facility] when ready. Will continue to monitor.
[2023-09-26] MEDS: ASPIRIN 81 MG TAB.CHEW PO (12:19)
[2023-09-26 15:00] VITALS: BP 117/60; PULSE 61; RESP 16; TEMP 37.2; O2SAT 99
--- NOTE | 2023-09-26 15:19 | PM.IMPN1 ---
Progress Note: A&P Assessment and plan (1) Addisonian crisis: Problem details: - Patient presented with hypotension hyperkalemia hyponatremia and vomiting consistent with addisonian or adrenal insufficiency crisis. Cause for this is uncertain. - Other medical problems that could contribute to this are new AFib with RVR, high output from ostomy, poor oral intake, urinary tract infection, undiagnosed liver/biliary disease. Continue to evaluate all of these. - Continue with fludrocortisone 0.1 mg daily. - initially treated with stress doses of hydrocortisone. 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 Continue sodium bicarb 650 mg p.o. t.i.d. Status: Acute (3) Hyperkalemia: Problem details: - Secondary to RTA type 4 - potassium 4.7, continue to monitor Status: Acute (4) Atrial fibrillation: Problem details: - New diagnosis. Initiated renal dose Eliquis and rate control. - transthoracic echocardiogram 09/18/2023: Normal LV chamber size, normal wall thickness, hyperdynamic systolic function, EF 81%. Mild left atrial enlargement. Mild to moderate tricuspid regurgitation. - metoprolol held, rate stable, consider resuming at lower dose upon discharge Status: Acute (5) Diabetes mellitus type 1: Problem details: - Continue LA insulin, mealtime insulin and ISS. Diabetic diet, glucose checks ACHS. - glucose 100- upper 200s. Receiving approximately 20 units aspirate daily. Continue with dose adjustments as needed. Resume home glargine on discharge. - Suspicious that her gastroparesis in conjunction with her high output ostomy causes decrease absorption of carbohydrates, protein, fat. This may be contributing to the hypoglycemia as well. Status: Chronic (6) Ileostomy in place: Problem details: - Monitor for output. Monitor weights. Lasix has been held. - 09/20/23 started Lomotil again. - cholestyramine started 09/20/2023. - 09/21/2023 initiated t.i.d. atropine with diphenoxylate - 09/23/23 I initiated her morphine once again. Had previously been on 15 mg of extended release morphine twice daily. This was stopped on this admission. Today I am restarting morphine, concentrate solution, 5 mg q.i.d.. Today I also increase the dose of the cholestyramine and diphenoxylate with atropine. - 09/26: Continue loperamide, psyllium, cholestyramine, diphenoxylate, lactobacillus with plan to discharge on this regimen. Morphine changed to 10 mg t.i.d. Output goal <1000. Status: Chronic (7) Elevated liver transaminase level: Problem details: History of cholecystectomy. Cause of elevated LFTs is unknown Status: Acute (8) Chronic hyponatremia: Problem details: -her baseline is high 120's. Currently stable at 129. Improving with sodium bicarb and hydrocortisone for adrenal insufficiency. Status: Acute (9) Diabetic gastroparesis: Problem details: -Monitor oral intake Status: Chronic (10) Orthostasis: Problem details: - multifactorial - continue with treatment for [place]'s including fludrocortisone - 09/21/2023: Normal saline 1 L over 2 hours. Reassess orthostatics in the morning. - 09/22/2023: Continue to monitor orthostatic blood pressures and pulses. - 09/24/2023: Another normal saline 1 L IV is given over 2 hours today. Continue to monitor orthostatic blood pressures and pulses. Continue to intensify morphine sulfate to try to slow down high output from ostomy, in addition to [address]. - 09/25/2023: Continue with current regimen and monitoring. - 09/26: Patient feels as though this is back to baseline, nursing reports stabilization. Status: Acute (11) Physical deconditioning: Problem details: - chronic - continue with efforts to try to help her remain is independent she can as long as she can. Status: Acute (12) Frailty syndrome in geriatric patient: Problem details: - resides in [facility] longterm facility. Will return there when she is deemed medically stable enough to return. Bed is on hold. Status: Acute Plan Possible discharge tomorrow, pending stool output <1000 and continued clinical improvement. Time Spent With Patient Total time spent: Total time spent caring for the patient today was 60 minutes. This includes time spent for the visit reviewing the chart, time spent during the visit, time spent after the visit and documentation and planning in coordination of care. Subjective Date Seen: 09/26/23 Interval history: Hospital day 9. Ostomy output is decreasing when reviewing output records. Weight steady at 44.5 kg. Complains of persistent lightheadedness, not necessarily with orthostasis - possibly related to medications. Reports this is chronic, prior to admission. Denies headache. Remains afebrile. Tolerating orals without nausea vomiting. Most recent stool reported as solid, however current stool is loose/watery with air, creating discomfort for patient. Blood sugars mid 100s to mid 200s, no longer hypoglycemic. Exam Narrative: Exam Narrative: PHYSICAL EXAM General: Sitting up in chair, very pleasant, conversant, NAD HEENT: Normocephalic, atraumatic, sclera white, EOMI, oral mucosa moist Cardiovascular: IRRR, S1S2. No pitting edema Pulmonary: CTA bilaterally without rhonchi, rales, expiratory wheezes. No dyspnea Abdominal: Soft, nondistended, NTTP. Ostomy with watery yellow stool, air. Neurological: Alert, answering questions appropriately, cranial nerves intact, no focal findings Extremities: No gross joint deformity or swelling. AROMI. Neurovascularly intact Skin: Warm, dry. Const: Vital Signs, click to edit/add: Vital Signs - 24 hr 09/25/23 19:00 09/25/23 23:00 09/25/23 23:00 Temperature 97.9 F Pulse Rate 65 Pulse Rate [Pulse Oximeter] 64 66 Respiratory Rate 18 18 Blood Pressure [Ri ght Arm] 126/66 126/63 Pulse Oximetry 99 99 Oxygen Delivery Me thod Room Air Room Air 09/26/23 03:00 09/26/23 07:00 09/26/23 11:00 Temperature 97.8 F 97.6 F 97.4 F L Pulse Rate Pulse Rate [Pulse Oximeter] 66 63 65 Respiratory Rate 18 16 18 Blood Pressure [Ri ght Arm] 131/82 130/64 127/67 Pulse Oximetry 97 100 99 Oxygen Delivery Me thod Room Air Room Air Room Air Labs Labs: Laboratory Results - last 24 hr 09/26/23 06:25 Hgb 11.3 L Sodium 129 L Potassium 4.7 Chloride 101 Carbon Dioxide 18 L Anion Gap 10 BUN 20 Creatinine 0.9 Estimated Creat Clear 28.43 Estimated GFR 62 Glucose 200 H Calcium 8.9
[2023-09-26] MEDS: HYDROCORTISONE 10 MG TABLET PO (16:32)
--- NOTE | 2023-09-26 18:13 | PC.NURSE ---
End of Shift: Patient remains alert and orientated, although forgetful and repeats questions... Reported mild generalized pain intermittently throughout the shift. Telemetry was discontinued as well as orthostatics. Patient is tolerating SBA w RW with no dizziness or lightheadedness. BLE upper extremity bruising on forearm due to blood draws. Ostomy having adequate output throughout the day. Ate 75% of all meals this shift. Calls appropriately. TASHA LANDRY BSN
[2023-09-26 19:00] VITALS: BP 115/56; PULSE 63; RESP 16; TEMP 36.6; O2SAT 99
[2023-09-26] MEDS: COENZYME Q10 100 MG CAPSULE PO (21:06)
--- NOTE | 2023-09-26 22:38 | P.IMPN_ITS ---
Progress Note: A&P Assessment and plan (1) Addisonian crisis: Problem details: - Patient presented with hypotension hyperkalemia hyponatremia and vomiting consistent with addisonian or adrenal insufficiency crisis. Cause for this is uncertain. - Other medical problems that could contribute to this are new AFib with RVR, high output from ostomy, poor oral intake, urinary tract infection, undiagnosed liver/biliary disease. Continue to evaluate all of these. - Continue with fludrocortisone 0.1 mg daily. - initially treated with stress doses of hydrocortisone. 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 Continue sodium bicarb 650 mg p.o. t.i.d. Status: Acute (3) Hyperkalemia: Problem details: - Secondary to RTA type 4 - potassium 4.7, continue to monitor Status: Acute (4) Atrial fibrillation: Problem details: - New diagnosis. Initiated renal dose Eliquis and rate control. - transthoracic echocardiogram 09/18/2023: Normal LV chamber size, normal wall thickness, hyperdynamic systolic function, EF 81%. Mild left atrial enlargement. Mild to moderate tricuspid regurgitation. - metoprolol held, rate stable, consider resuming at lower dose upon discharge Status: Acute (5) Diabetes mellitus type 1: Problem details: - Continue LA insulin, mealtime insulin and ISS. Diabetic diet, glucose checks ACHS. - glucose 100- upper 200s. Receiving approximately 20 units aspirate daily. Continue with dose adjustments as needed. Resume home glargine on discharge. - Suspicious that her gastroparesis in conjunction with her high output ostomy causes decrease absorption of carbohydrates, protein, fat. This may be contributing to the hypoglycemia as well. Status: Chronic (6) Ileostomy in place: Problem details: - Monitor for output. Monitor weights. Lasix has been held. - 09/20/23 started Lomotil again. - cholestyramine started 09/20/2023. - 09/21/2023 initiated t.i.d. atropine with diphenoxylate - 09/23/23 I initiated her morphine once again. Had previously been on 15 mg of extended release morphine twice daily. This was stopped on this admission. Today I am restarting morphine, concentrate solution, 5 mg q.i.d.. Today I also increase the dose of the cholestyramine and diphenoxylate with atropine. - 09/26: Continue loperamide, psyllium, cholestyramine, diphenoxylate, lactobacillus with plan to discharge on this regimen. Morphine changed to 10 mg t.i.d. Output goal <1000. Status: Chronic (7) Elevated liver transaminase level: Problem details: History of cholecystectomy. Cause of elevated LFTs is unknown. Not having obvious symptoms. Status: Acute (8) Chronic hyponatremia: Problem details: -her baseline is high 120's. Currently stable at 129. Improving with sodium bicarb, sodium chloride tablets and hydrocortisone for adrenal insufficiency. Status: Acute (9) Diabetic gastroparesis: Problem details: -Monitor oral intake Status: Chronic (10) Orthostasis: Problem details: - multifactorial - continue with treatment for René's including fludrocortisone - 09/21/2023: Normal saline 1 L over 2 hours. Reassess orthostatics in the morning. - 09/22/2023: Continue to monitor orthostatic blood pressures and pulses. - 09/24/2023: Another normal saline 1 L IV is given over 2 hours today. Continue to monitor orthostatic blood pressures and pulses. Continue to intensify morphine sulfate to try to slow down high output from ostomy, in addition to [address]. - 09/25/2023: Continue with current regimen and monitoring. - 09/26: Patient feels as though this is back to baseline, nursing reports stabilization. Status: Acute (11) Physical deconditioning: Problem details: - chronic - continue with efforts to try to help her remain is independent she can as long as she can. Status: Acute (12) Frailty syndrome in geriatric patient: Problem details: - resides in [facility] facility. Will return there when she is deemed medically stable enough to return. Bed is on hold. Status: Acute (13) High output ileostomy: Problem details: managed with imodium 4 mg q.i.d., diphenoxylate atropine 2 tablets q.i.d., cholestyramine, Metamucil, morphine Status: Chronic (14) Altered mental status: Problem details: Exhibiting some altered mental status. Not obviously delirious at the moment. Most likely explanation is hospitalization plus illness plus medication side effects. Will cut back on morphine to see if this helps. Status: Acute Plan Patient is continue in-hospital to monitor high ileostomy output, fluid and electrolyte problems, diabetes. These problems have all been on stable and requiring ongoing adjustments. Would like to achieve a regimen that will be successful [facility]. Total time spent today is 70 minutes, 50 minutes in coordination of care discussing with patient and other providers ongoing evaluation management. Subjective Date Seen: 09/27/23 Interval history: Shira Stauffer is a 88 year old female with type 1 diabetes, René's disease, type 4 renal tubular acidosis, stage 4 kidney disease, coronary artery disease, hypothyroidism, high ileostomy output admitted to the hospital with a couple day history of dizziness weakness and today vomiting. Nonbloody emesis. She is at [address] [place] [address] where laboratory studies showed hyponatremia and hyperkalemia. She had her hydrocortisone increased to address this yesterday. Her blood sugar has been somewhat elevated at 215 today. She was hospitalized at [facility] from August 31 to September 04. Shock was that diagnosis. She was briefly on pressors. She received IV hydrocortisone and recovered quickly. She had acidosis and was treated with intravenous sodium bicarb as well. No definite identified source of sepsis but she did have a possible UTI at that time. She is resident of [facility] were her medications are administered to her. She is not aware of any other changes in her medicine other than the report that her hydrocortisone was increased yesterday. There have been some problems with her blood sugar and insulin has been adjusted. A year and a half ago she was hospitalized at [facility] with septic shock. 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 After that she had some problems with high output of her ileostomy. Patient continues to have high output of her ileostomy. She is on loperamide 4 mg 4 times a day, diphenoxylate with atropine increased from 1-2 tablets 4 times a day, Metamucil, cholestyramine. It was suspected that she was on morphine, possibly also to control her ileostomy output. When she was discharged from [facility] this was discontinued per discharge records but may have been getting it in the [facility]. It was not restarted on this admission but now was restarted a couple days ago. During his hospital stay blood sugars have been fluctuating quite wildly from high to low. This has improved in the last few days with titration of her insulin. She continues to have problems with her fluid and electrolyte status due to high ostomy output. She received stress dose steroids on admission but now is back on her normal hydrocortisone dose. She reports no problems today. Nursing staff note that she seems more sedated than usual. Exam Narrative: Exam Narrative: She is awake but mentally much slower than usual today. She response to questions appropriately but appears to have slow mentation and slow speech. She is otherwise pleasant and cooperative. Eyes are normal. Extraocular movements are full. Visual wilson are intact. No facial asymmetry. Oropharynx is normal. Neck is supple without mass or adenopathy. Respirations are clear to auscultation. Cardiovascular: S1, S2, regular rate and rhythm. No murmur gallop or rub. Abdomen: Bowel sounds active. Abdomen is soft without tenderness or mass. Extremities without edema. Const: Vital Signs, click to edit/add: Vital Signs - 24 hr 09/25/23 23:00 09/25/23 23:00 09/26/23 03:00 Temperature 97.9 F 97.8 F Pulse Rate 65 Pulse Rate [Pulse Oximeter] 66 66 Respiratory Rate 18 18 Blood Pressure [Ri t Arm] 126/63 131/82 Pulse Oximetry 99 97 Oxygen Delivery Me thod Room Air Room Air 09/26/23 07:00 09/26/23 11:00 09/26/23 15:00 Temperature 97.6 F 97.4 F L 99 F Pulse Rate Pulse Rate [Pulse Oximeter] 63 65 61 Respiratory Rate 16 18 16 Blood Pressure [Ri t Arm] 130/64 127/67 117/60 Pulse Oximetry 100 99 99 Oxygen Delivery Me thod Room Air Room Air Room Air Documenting provider has reviewed patient's vital signs: yes Labs Labs: Laboratory Results - last 24 hr 09/26/23 06:25 Hgb 11.3 L Sodium 129 L Potassium 4.7 Chloride 101 Carbon Dioxide 18 L Anion Gap 10 BUN 20 Creatinine 0.9 Estimated Creat Clear 28.43 Estimated GFR 62 Glucose 200 H Calcium 8.9
[2023-09-26 22:56] VITALS: BP 131/76; PULSE 67; RESP 16; TEMP 36.6; O2SAT 94
[2023-09-27 03:00] VITALS: BP 129/69; PULSE 61; RESP 16; TEMP 36.6; O2SAT 97
--- NOTE | 2023-09-27 05:40 | PC.NURSE ---
Shift note: Pt is doing well but feels sleepy. At 2100, blood sugar level was 59. Juab juice, gram crackers and peanut butter given. Rechecked at 2100 was 163. At 0200, blood sugar rechecked per sliding scale was 191 but pt refused insulin. Ostomy content was soft and semi-solid, emptied 1x tonight. Vital signs WNL. Fluid restriction maintained at 2000ml. No fever, pain and SOB reported. Alert and oriented.
[2023-09-27 06:56] LABS: Chloride* 105 mmol/L (96-114); Potassium* 4.3 mmol/L (3.6-5.1); Sodium* 131 mmol/L (135-149)
[2023-09-27 06:59] LABS: Anion Gap 7 mEq/L (7-15); Carbon Dioxide* 19 mmol/L (20-32); Creatinine* 0.9 mg/dL (0.5-1.5); Est. Creatinine Clearance* 28.21; Estimated Glomerular Filt Rate 62 ml/min
[2023-09-27 07:00] VITALS: BP 155/71; PULSE 78; RESP 16; TEMP 36.8; O2SAT 97
[2023-09-27 07:00] LABS: Blood Urea Nitrogen* 19 mg/dL (7-30); Calcium* 8.6 mg/dL (8.4-10.6); Glucose* 136 mg/dL (60-115)
[2023-09-27] MEDS: DIPHENOXYLATE-ATROP 2.5-0.025 TABLET 2 TAB PO ×4 (09:06→20:36)
[2023-09-27] MEDS: CHOLESTYRAMINE POWDER 4 GM 8 GM PO ×2 (09:07→20:35)
[2023-09-27] MEDS: MULTIVITAMIN/MINERALS 1 TABLET 1 TAB PO (09:07)
[2023-09-27] MEDS: SODIUM CHLORIDE 1 GM TABLET PO ×3 (09:07→20:36)
[2023-09-27] MEDS: APIXABAN 5 MG TABLET 2.5 MG PO ×2 (09:07→20:37)
[2023-09-27] MEDS: LOPERAMIDE HCL 2 MG CAPSULE 4 MG PO ×4 (09:07→20:37)
[2023-09-27] MEDS: SODIUM BICARBONATE 650 MG TABLET PO ×3 (09:07→17:50)
[2023-09-27] MEDS: SERTRALINE 50 MG TABLET PO (09:07)
[2023-09-27] MEDS: PSYLLIUM HUSK (WITH SUGAR) 12 GM PACKET PO ×4 (09:08→20:35)
[2023-09-27] MEDS: FLUDROCORTISONE ACETATE 0.1 MG TABLET PO (09:14)
[2023-09-27] MEDS: INSULIN ASPART 100 UNIT/ML 6 UNIT SUBCUT ×3 (09:19→17:51)
[2023-09-27] MEDS: LEVOTHYROXINE 75 MCG TABLET PO (09:21)
[2023-09-27] MEDS: LACTOBACILLUS ACIDOPHILUS 1 TABLET 2 TAB PO ×3 (09:21→17:50)
[2023-09-27] MEDS: HYDROCORTISONE 10 MG TABLET 15 MG PO (09:21)
[2023-09-27] MEDS: SODIUM CHLORIDE 0.9 % (FLUSH) 10 ML SYRINGE 5 ML IVF ×2 (09:26→20:40)
[2023-09-27] MEDS: ACETAMINOPHEN 325 MG TABLET 650 MG PO (10:56)
[2023-09-27 10:59] VITALS: BP 120/70; PULSE 73; RESP 16; TEMP 36.7; O2SAT 97
[2023-09-27] MEDS: ASPIRIN 81 MG TAB.CHEW PO (12:34)
[2023-09-27 14:33] VITALS: BP 112/60; PULSE 69; RESP 16; TEMP 36.8; O2SAT 98
[2023-09-27] MEDS: HYDROCORTISONE 10 MG TABLET PO (16:56)
--- NOTE | 2023-09-27 18:51 | PC.NURSE ---
End of Shift: The patient this AM appeared different to prior assessment.. very tired and not responsive to when I was asking her questions.. neuros were completed and DR bauer was notified. Thinking she had an excess of morphine so the order was switched to ER PO morphine held this AM per Dr Bauer. Appetite remains, about 700 left on FR for the day. On her spine a Mepilex was placed due to redness and bony prominence. Ostomy bag was changed today due to it coming undone this morning. Calls appropriately.. Daughter called this evening (Gianan) an update was given. When stable she is able to return to [facility]. Ostomy had moderate amount of output of about 800 today.. liquid in the AM then soft/formed this afternoon/evening. Call light within reach. TASHA LANDRY BSN
[2023-09-27 19:00] VITALS: BP 119/75; PULSE 74; RESP 16; TEMP 36.8; O2SAT 97
[2023-09-27] MEDS: COENZYME Q10 100 MG CAPSULE PO (20:42)
[2023-09-27 23:00] VITALS: BP 116/72; PULSE 74; RESP 16; TEMP 36.6; O2SAT 97
[2023-09-28] VITALS (7 sets, daily range): BP systolic 103–143; BP diastolic 56–82; PULSE 69–101; RESP 16; TEMP 36.6–37.1; O2SAT 94–100
--- NOTE | 2023-09-28 04:46 | PC.NURSE ---
Shift note: Blood glucose at 2100 was 105. MD informed about the need to hold Insulin Detemir 8U, but MD medication to be given. Blood glucose level drop to 49 at 0140. No hypoglycemic s/s observed. [place] juice, santo crackers and peanut butter given. Rechecked at 0210 was 124. Ostomy bag was leaking and new one applied at 0230. Continue to feel sleepy. No pain reported. Vitally stable.
[2023-09-28 07:29] LABS: Chloride* 107 mmol/L (96-114); Potassium* 3.9 mmol/L (3.6-5.1); Sodium* 134 mmol/L (135-149)
[2023-09-28 07:32] LABS: Anion Gap 6 mEq/L (7-15); Blood Urea Nitrogen* 21 mg/dL (7-30); Carbon Dioxide* 21 mmol/L (20-32); Creatinine* 0.9 mg/dL (0.5-1.5); Est. Creatinine Clearance* 28.14; Estimated Glomerular Filt Rate 62 ml/min; Glucose* 54 mg/dL (60-115)
[2023-09-28 07:33] LABS: Calcium* 8.6 mg/dL (8.4-10.6)
[2023-09-28] MEDS: SERTRALINE 50 MG TABLET PO (08:23)
[2023-09-28] MEDS: LEVOTHYROXINE 75 MCG TABLET PO (08:24)
[2023-09-28] MEDS: SODIUM CHLORIDE 1 GM TABLET PO ×3 (08:24→21:03)
[2023-09-28] MEDS: SODIUM BICARBONATE 650 MG TABLET PO ×3 (08:24→18:47)
[2023-09-28] MEDS: MULTIVITAMIN/MINERALS 1 TABLET 1 TAB PO (08:24)
[2023-09-28] MEDS: LOPERAMIDE HCL 2 MG CAPSULE 4 MG PO ×4 (08:24→21:02)
[2023-09-28] MEDS: FLUDROCORTISONE ACETATE 0.1 MG TABLET PO (08:25)
[2023-09-28] MEDS: PSYLLIUM HUSK (WITH SUGAR) 12 GM PACKET PO ×4 (08:25→21:01)
[2023-09-28] MEDS: HYDROCORTISONE 10 MG TABLET 15 MG PO (08:25)
[2023-09-28] MEDS: SODIUM CHLORIDE 0.9 % (FLUSH) 10 ML SYRINGE 5 ML IVF ×2 (08:25→21:05)
[2023-09-28] MEDS: LACTOBACILLUS ACIDOPHILUS 1 TABLET 2 TAB PO ×3 (08:25→18:47)
[2023-09-28] MEDS: INSULIN ASPART 100 UNIT/ML 6 UNIT SUBCUT ×3 (10:10→18:46)
[2023-09-28] MEDS: INSULIN ASPART 100 UNIT/ML SUBCUT (10:10)
[2023-09-28] MEDS: CHOLESTYRAMINE POWDER 4 GM 8 GM PO ×2 (10:10→21:01)
[2023-09-28] MEDS: DIPHENOXYLATE-ATROP 2.5-0.025 TABLET 2 TAB PO ×4 (10:11→21:04)
[2023-09-28] MEDS: APIXABAN 5 MG TABLET 2.5 MG PO (10:17)
[2023-09-28 12:09] LABS: Fecal Occult Blood* Negative (Negative)
--- NOTE | 2023-09-28 16:10 | P.IMPN_ITS ---
Progress Note: A&P Assessment and plan (1) Addisonian crisis: Problem details: - Patient presented with hypotension hyperkalemia hyponatremia and vomiting consistent with addisonian or adrenal insufficiency crisis. Cause for this is uncertain. Most likely explanation so far seems to be high output from her ostomy causing hypotension, electrolyte abnormalities and inability of her adrenal glands to respond to physiologic stress Also now seen to be in AFib with RVR - Continue with fludrocortisone 0.1 mg daily. - initially treated with stress doses of hydrocortisone. 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 Continue sodium bicarb 650 mg p.o. t.i.d. Status: Acute (3) Hyperkalemia: Problem details: - Secondary to RTA type 4 - potassium 4.7, continue to monitor Status: Acute (4) Atrial fibrillation: Problem details: - New diagnosis. Initiated renal dose Eliquis and rate control. - transthoracic echocardiogram 09/18/2023: Normal LV chamber size, normal wall thickness, hyperdynamic systolic function, EF 81%. Mild left atrial enlargement. Mild to moderate tricuspid regurgitation. - metoprolol held, rate stable, consider resuming at lower dose upon discharge Status: Acute (5) Diabetes mellitus type 1: Problem details: - Continue LA insulin, mealtime insulin and ISS. Diabetic diet, glucose checks ACHS. - glucose 100- upper 200s. Receiving approximately 20 units aspirate daily. Continue with dose adjustments as needed. Resume home glargine on discharge. - Suspicious that her gastroparesis in conjunction with her high output ostomy causes decrease absorption of carbohydrates, protein, fat. This may be contributing to the hypoglycemia as well. Status: Chronic (6) Elevated liver transaminase level: Problem details: History of cholecystectomy. Cause of elevated LFTs is unknown. Not having obvious symptoms. Status: Acute (7) Chronic hyponatremia: Problem details: -her baseline is high 120's. Currently stable at 129. Improving with sodium bicarb, sodium chloride tablets and hydrocortisone for adrenal insufficiency. Status: Acute (8) Diabetic gastroparesis: Problem details: -Monitor oral intake Status: Chronic (9) Orthostasis: Problem details: Continue to monitor on stable therapy for [place] and Status: Acute (10) Physical deconditioning: Problem details: - chronic - continue with efforts to try to help her remain is independent she can as long as she can. Status: Acute (11) Frailty syndrome in geriatric patient: Problem details: - resides in [facility] facility. Will return there when she is deemed medically stable enough to return. Bed is on hold. Status: Acute (12) High output ileostomy: Problem details: managed with imodium 4 mg q.i.d., diphenoxylate atropine 2 tablets q.i.d., cholestyramine, Metamucil, morphine Status: Chronic (13) Altered mental status: Problem details: Exhibiting some altered mental status. Not obviously delirious at the moment. Most likely explanation is hospitalization plus illness plus medication side effects. Will cut back on morphine to see if this helps. Status: Acute (14) Chronic pain: Problem details: Today she reports that she is using morphine to manage chronic pain in her back from compression fractures in all 4 extremities including abdominal pain. Attempts to discontinue morphine in the past have not been successful. Morphine may be an important additional therapy to manage her high output ileostomy. Will continue for now as MS Contin. Consider liquid morphine more frequently dosed if absorption of MS Contin is uncertain Status: Acute Plan Continue in-hospital to stabilize an optimize treatment of high output ostomy, brittle type 1 diabetes with hypo and hyperglycemia and multiple electrolyte abnormalities. Time Spent With Patient Total time spent: Total time spent today is 65 minutes, 45 minutes in coordination of care and discussing with patient, daughter and other providers ongoing management of diabetes, hypoglycemia, high output ostomy. Subjective Date Seen: 09/28/23 Interval history: Shira Stauffer is a 88 year old female with type 1 diabetes, René's disease, type 4 renal tubular acidosis, stage 4 kidney disease, coronary artery disease, hypothyroidism, high ileostomy output admitted to the hospital with a couple day history of dizziness weakness and today vomiting. Nonbloody emesis. She is at [address] [place] [address] where laboratory studies showed hyponatremia and hyperkalemia. She had her hydrocortisone increased to address this yesterday. Her blood sugar has been somewhat elevated at 215 today. She was hospitalized at [facility] from August 31 to September 04. Shock was that diagnosis. She was briefly on pressors. She received IV hydrocortisone and recovered quickly. She had acidosis and was treated with intravenous sodium bicarb as well. No definite identified source of sepsis but she did have a possible UTI at that time. She is resident of [facility] were her medications are administered to her. She is not aware of any other changes in her medicine other than the report that her hydrocortisone was increased yesterday. There have been some problems with her blood sugar and insulin has been adjusted. A year and a half ago she was hospitalized at [facility] with septic shock. 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 After that she had some problems with high output of her ileostomy. Patient continues to have high output of her ileostomy. She is on loperamide 4 mg 4 times a day, diphenoxylate with atropine increased from 1-2 tablets 4 times a day, Metamucil, cholestyramine. She had previously been on morphine for chronic pain and possibly also helping with controlling ostomy output. Morphine is been on and off over the last few weeks. Uncertain whether she is having opioid withdrawal with her increased diarrhea. When she was discharged from [facility] morphine was discontinued per discharge records but she [facility]. It was not restarted on this admission but now was restarted a couple days ago. During his hospital stay blood sugars have been fluctuating quite wildly from high to low. This has improved in the last few days with titration of her insulin. She continues to have problems with her fluid and electrolyte status due to high ostomy output. She received stress dose steroids on admission but now is back on her normal hydrocortisone dose. Today she is more alert. She is back to her baseline mental status compared to some sedation yesterday. She is eating well. Still having moderate ostomy output. No fever or shortness of breath or cough. Blood sugars have been low this morning. Exam Narrative: Exam Narrative: She is alert and appears in no distress. Mental status is back to baseline. Respirations are clear to auscultation. Cardiovascular: S1, S2, somewhat irregular rate and rhythm. No murmur gallop or rub. Abdomen is soft without tenderness. Bowel sounds are present. Ostomy bag is filled with green liquid stool with some solid substance to it. Extremities without edema Const: Vital Signs, click to edit/add: Vital Signs - 24 hr 09/27/23 19:00 09/27/23 23:00 09/28/23 03:00 Temperature 98.3 F 98 F 98.3 F Pulse Rate [Pulse Oximeter] 74 74 69 Pulse Rate [orthos tatic lying Right Brachial] Pulse Rate [orthos tatic sitting Righ t Brachial] Pulse Rate [orthos tatic standing Rig ht Brachial] Respiratory Rate 16 16 16 Blood Pressure [Ri ght Arm] 119/75 116/72 113/59 L Blood Pressure [or thostatic lying Ri ght Arm] Blood Pressure [or thostatic sitting Right Arm] Blood Pressure [or thostatic standing Right Arm] Pulse Oximetry 97 97 99 Oxygen Delivery Me thod Room Air Room Air Room Air 09/28/23 07:00 09/28/23 11:00 09/28/23 12:03 Temperature 98.3 F 98.7 F Pulse Rate [Pulse Oximeter] 99 85 Pulse Rate [orthos tatic lying Right Brachial] 76 Pulse Rate [orthos tatic sitting Righ t Brachial] 86 Pulse Rate [orthos tatic standing Rig ht Brachial] 101 H Respiratory Rate 16 16 Blood Pressure [Ri ght Arm] 134/82 134/78 Blood Pressure [or thostatic lying Ri ght Arm] 113/67 Blood Pressure [or thostatic sitting Right Arm] 119/73 Blood Pressure [or thostatic standing Right Arm] 107/67 Pulse Oximetry 100 99 Oxygen Delivery Me thod Room Air 09/28/23 15:00 Temperature 98.2 F Pulse Rate [Pulse Oximeter] 77 Pulse Rate [orthos tatic lying Right Brachial] Pulse Rate [orthos tatic sitting Righ t Brachial] Pulse Rate [orthos tatic standing Rig ht Brachial] Respiratory Rate 16 Blood Pressure [Ri ght Arm] 119/64 Blood Pressure [or thostatic lying Ri ght Arm] Blood Pressure [or thostatic sitting Right Arm] Blood Pressure [or thostatic standing Right Arm] Pulse Oximetry 99 Oxygen Delivery Me thod Room Air Documenting provider has reviewed patient's vital signs: yes Labs Labs: Laboratory Results - last 24 hr 09/28/23 09/28/23 05:57 11:52 Sodium 134 L Potassium 3.9 Chloride 107 Carbon Dioxide 21 Anion Gap 6 L BUN 21 Creatinine 0.9 Estimated Creat Clear 28.14 Estimated GFR 62 Glucose 54 L Calcium 8.6 Stool Occult Blood Negative
[2023-09-28] MEDS: HYDROCORTISONE 10 MG TABLET PO (16:57)
--- NOTE | 2023-09-28 18:56 | PC.NURSE ---
End of Shift: Upon assessment this AM her ostomy bag was leaking.... I changed it .. again no leakage since then. Output remains frequent, but semi solid/formed. Fluid restriction remains in place. Patient is tolerating it with no issues. Spine/ coccyx Mepilex remain in place for pressure ulcer prevention. up to the chair throughout the day. This AM her BG was 36... recheck after carbs was 100. Long acting insulin was changed per MD order to the AM. Before supper she was @ 56... only scheduled insulin was given. Calls appropriately. VSS on RA. TASHA LANDRY BSN
[2023-09-28] MEDS: COENZYME Q10 100 MG CAPSULE PO (21:04)
[2023-09-29 03:00] VITALS: BP 117/59; PULSE 78; RESP 16; TEMP 36.8; O2SAT 98
--- NOTE | 2023-09-29 05:58 | PC.NURSE ---
Shift note: Pt's blood glucose level at 2100 was 66. No s/s of hypoglycemia observed. 125ml of orange juice, 2 Oziel crackers and pea nut butter were given. Rechecked at 2130 was 68. Same quantity of snack was repeated and rechecked after 30 minutes was 192. Alert and oriented, ambulated with A1 and walker. Pt refused insulin at 0200 with a blood glucose level of 282. Due treatment given. Colostomy continue to produce semi-solid fecal content. Bag changed 1x tonight due to leaking. Vitally stable.
[2023-09-29 06:15] LABS: Basophils Absolute Auto 0.03 K/uL (0.00-0.30); Basophils Percent Auto 0.4 % (0.0-3.0); Eosinophils Absolute Auto 0.25 K/uL (0.00-0.50); Eosinophils Percent Auto 3.3 % (0.0-7.0); Hematocrit 31.7 % (33.0-51.0); Hemoglobin* 10.1 gm/dL (12.0-16.0); Immature Granulocytes Abs Auto 0.02 K/uL (0.00-0.30); Immature Granulocytes Pct Auto 0.3 %; Lymphocytes Absolute Auto 1.85 K/uL (0.90-2.90); Lymphocytes Percent Auto 24.6 % (20-44); Mean Corpuscular HGB Conc 32 gm/dL (32-36); Mean Corpuscular Hemoglobin 29 pg (26-34); Mean Corpuscular Volume 90 fL (80-100); Monocytes Percent Auto 12.5 % (0.0-11.0); Neutrophils Absolute Auto 4.43 K/uL (1.7-7.0); Neutrophils Percent Auto 58.9 % (42.0-72.0); Platelet Count* 189 K/uL (140-440); RDW Coefficient of Variation % 14.4 % (11.5-15.5); Red Blood Count 3.53 m/uL (4.00-5.20); White Blood Count* 7.52 K/uL (4.50-11.00)
[2023-09-29 06:18] LABS: Slide Review Reflex No
[2023-09-29 06:27] LABS: Chloride* 102 mmol/L (96-114); Sodium* 128 mmol/L (135-149)
[2023-09-29 06:29] LABS: Creatinine* 0.9 mg/dL (0.5-1.5); Est. Creatinine Clearance* 28.48; Estimated Glomerular Filt Rate 62 ml/min
[2023-09-29 06:30] LABS: Anion Gap 7 mEq/L (7-15); Blood Urea Nitrogen* 22 mg/dL (7-30); Carbon Dioxide* 19 mmol/L (20-32)
[2023-09-29 06:31] LABS: Calcium* 8.3 mg/dL (8.4-10.6); Glucose* 252 mg/dL (60-115)
[2023-09-29 06:33] LABS: C Reactive Protein* 0.5 mg/dL (0.5-1.0)
[2023-09-29 07:00] VITALS: BP 133/86; PULSE 72; RESP 20; TEMP 36.6; O2SAT 100
[2023-09-29] MEDS: INSULIN ASPART 100 UNIT/ML SUBCUT ×3 (07:55→21:29)
[2023-09-29] MEDS: INSULIN ASPART 100 UNIT/ML 6 UNIT SUBCUT ×2 (07:56→12:13)
[2023-09-29] MEDS: SODIUM CHLORIDE 1 GM TABLET PO ×3 (07:57→21:14)
[2023-09-29] MEDS: LEVOTHYROXINE 75 MCG TABLET PO (07:57)
[2023-09-29] MEDS: HYDROCORTISONE 10 MG TABLET 15 MG PO (07:57)
[2023-09-29] MEDS: LACTOBACILLUS ACIDOPHILUS 1 TABLET 2 TAB PO ×3 (07:57→18:55)
[2023-09-29] MEDS: LOPERAMIDE HCL 2 MG CAPSULE 4 MG PO ×4 (08:44→21:14)
[2023-09-29] MEDS: FLUDROCORTISONE ACETATE 0.1 MG TABLET 0.2 MG PO (08:44)
[2023-09-29] MEDS: PSYLLIUM HUSK (WITH SUGAR) 12 GM PACKET PO ×4 (08:45→21:14)
[2023-09-29] MEDS: CHOLESTYRAMINE POWDER 4 GM 8 GM PO ×2 (08:45→21:14)
[2023-09-29] MEDS: MULTIVITAMIN/MINERALS 1 TABLET 1 TAB PO (08:45)
[2023-09-29] MEDS: SERTRALINE 50 MG TABLET PO (08:45)
[2023-09-29] MEDS: SODIUM BICARBONATE 650 MG TABLET 1300 MG PO ×3 (08:52→18:57)
[2023-09-29 09:00] VITALS: BP 105/59; BP 109/56; BP 122/63; PULSE 79; PULSE 86; PULSE 98
[2023-09-29] MEDS: SODIUM CHLORIDE 0.9 % (FLUSH) 10 ML SYRINGE 5 ML IVF ×2 (10:13→21:15)
[2023-09-29] MEDS: DIPHENOXYLATE-ATROP 2.5-0.025 TABLET 2 TAB PO ×4 (10:13→21:14)
--- NOTE | 2023-09-29 13:34 | PC.NURSE ---
End of Shift Note: Patient has been up to the chair most of this shift. Ambulates with SBA to BR. This afternoon we did take a walk and walked the entire unit and then back to her chair where she is currently sitting. She states that Dr. Rodriguez discontinued her fluid restriction after speaking with him this is true that she no longer has the fluid restriction. No complaints of pain will continue to monitor until the next shift arrives.
[2023-09-29 16:00] VITALS: BP 128/81; PULSE 80; RESP 16; TEMP 36.8; O2SAT 100
[2023-09-29] MEDS: HYDROCORTISONE 10 MG TABLET PO (17:04)
--- NOTE | 2023-09-29 17:40 | P.IMPN_ITS ---
Progress Note: A&P Assessment and plan (1) Addisonian crisis: Problem details: - Patient presented with hypotension hyperkalemia hyponatremia and vomiting consistent with addisonian or adrenal insufficiency crisis. Cause for this is uncertain. Most likely explanation so far seems to be high output from her ostomy causing hypotension, electrolyte abnormalities and inability of her adrenal glands to respond to physiologic stress Also now seen to be in AFib with RVR - Continue with fludrocortisone 0.1 mg daily. - initially treated with stress doses of hydrocortisone. 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 Sodium bicarb increased today due to metabolic acidosis Status: Acute (3) Hyperkalemia: Problem details: - Secondary to RTA type 4 - potassium 4.7, continue to monitor Status: Acute (4) Atrial fibrillation: Problem details: - New diagnosis. Initiated renal dose Eliquis and rate control. - transthoracic echocardiogram 09/18/2023: Normal LV chamber size, normal wall thickness, hyperdynamic systolic function, EF 81%. Mild left atrial enlargement. Mild to moderate tricuspid regurgitation. - metoprolol held, rate stable, consider resuming at lower dose upon discharge Status: Acute (5) Diabetes mellitus type 1: Problem details: - Continue LA insulin, mealtime insulin and ISS. Diabetic diet, glucose checks ACHS. - glucose 100- upper 200s. Receiving approximately 20 units aspirate daily. Continue with dose adjustments as needed. Resume home glargine on discharge. - Suspicious that her gastroparesis in conjunction with her high output ostomy causes decrease absorption of carbohydrates, protein, fat. This may be contributing to the hypoglycemia as well. Status: Chronic (6) Elevated liver transaminase level: Problem details: History of cholecystectomy. Cause of elevated LFTs is unknown. Not having obvious symptoms. Status: Acute (7) Chronic hyponatremia: Problem details: -her baseline is high 120's. Currently stable at 129. Improving with sodium bicarb, sodium chloride tablets and hydrocortisone for adrenal insufficiency. Status: Acute (8) Diabetic gastroparesis: Problem details: -Monitor oral intake Status: Chronic (9) Orthostasis: Problem details: Fludrocortisone increased today due to orthostatic symptoms and electrolyte problems Status: Acute (10) Physical deconditioning: Problem details: - chronic - continue with efforts to try to help her remain is independent she can as long as she can. Status: Acute (11) Frailty syndrome in geriatric patient: Problem details: - resides in [facility] senior living facility. Will return there when she is deemed medically stable enough to return. Bed is on hold. Status: Acute (12) High output ileostomy: Problem details: managed with imodium 4 mg q.i.d., diphenoxylate atropine 2 tablets q.i.d., cholestyramine, Metamucil, morphine Status: Chronic (13) Altered mental status: Problem details: Exhibiting some altered mental status. Not obviously delirious at the moment. Most likely explanation is hospitalization plus illness plus medication side effects. Morphine continued at previous dose without obvious adverse effects Status: Acute (14) Chronic pain: Problem details: Today she reports that she is using morphine to manage chronic pain in her back from compression fractures in all 4 extremities including abdominal pain. Attempts to discontinue morphine in the past have not been successful. Morphine may be an important additional therapy to manage her high output ileostomy. Will continue for now as MS Contin. Consider liquid morphine more frequently dosed if absorption of MS Contin is uncertain Status: Acute Plan Continue in-hospital to stabilize her adrenal crisis, diabetes, electrolytes and her high ostomy output. Anticipate discharge back to intermediate when these have stabilized. Time Spent With Patient Total time spent: Total time spent today is 55 minutes, 45 minutes in coordination of care and discussing with patient and other providers ongoing management of adrenal insufficiency and high ostomy output. Subjective Date Seen: 09/29/23 Interval history: Shira Stauffer is a 88 year old female with type 1 diabetes, René's disease, type 4 renal tubular acidosis, stage 4 kidney disease, coronary artery disease, hypothyroidism, high ileostomy output admitted to the hospital with a couple day history of dizziness weakness and today vomiting. Nonbloody emesis. She is at [address] [place] [address] where laboratory studies showed hyponatremia and hyperkalemia. She had her hydrocortisone increased to address this yesterday. Her blood sugar has been somewhat elevated at 215 today. She was hospitalized at [facility] from August 31 to September 04. Shock was that diagnosis. She was briefly on pressors. She received IV hydrocortisone and recovered quickly. She had acidosis and was treated with intravenous sodium bicarb as well. No definite identified source of sepsis but she did have a possible UTI at that time. She is resident of [facility] were her medications are administered to her. She is not aware of any other changes in her medicine other than the report that her hydrocortisone was increased yesterday. There have been some problems with her blood sugar and insulin has been adjusted. A year and a half ago she was hospitalized at [facility] with septic shock. 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 After that she had some problems with high output of her ileostomy. Patient continues to have high output of her ileostomy. She is on loperamide 4 mg 4 times a day, diphenoxylate with atropine increased from 1-2 tablets 4 times a day, Metamucil, cholestyramine. She had previously been on morphine for chronic pain and possibly also helping with controlling ostomy output. Morphine is been on and off over the last few weeks. Uncertain whether she is having opioid withdrawal with her increased diarrhea. When she was discharged from [facility] morphine was discontinued per discharge records but she may have been getting it in the intermediate. It was not restarted on this admission but now was restarted a couple days ago. During his hospital stay blood sugars have been fluctuating quite wildly from high to low. This has improved in the last few days with titration of her insulin. She continues to have problems with her fluid and electrolyte status due to high ostomy output. She received stress dose steroids on admission but now is back on her normal hydrocortisone dose. Today patient reports her mental status is back to normal. She still reporting feeling some lightheadedness when she gets up and walks around. She does not have vertigo. She does not get syncopal. Her orthostatics show mild changes in blood pressure and pulse from supine to standing. She has been eating normally. Still has moderate amount of ostomy output. She had low blood sugars last evening. Exam Narrative: Exam Narrative: She is alert and appears in no distress. Speech is normal. Mood and affect are bright. Respirations are clear to auscultation. Cardiovascular: S1, S2, irregular rate and rhythm. Abdomen is soft without tenderness or mass. Ostomy output is moderate amount of green water with some fiber consistent with Metamucil. Extremities without edema. Const: Vital Signs, click to edit/add: Vital Signs - 24 hr 09/28/23 19:00 09/28/23 22:56 09/28/23 22:56 Temperature 98.5 F 98 F Pulse Rate [Pulse Oximeter] 76 70 70 Pulse Rate [orthos tatic lying Right Brachial] Pulse Rate [orthos tatic sitting Righ t Brachial] Pulse Rate [orthos tatic standing Rig ht Brachial] Respiratory Rate 16 16 16 Blood Pressure [Ri ght Arm] 103/56 L 143/65 H Blood Pressure [or thostatic lying Ri ght Arm] Blood Pressure [or thostatic sitting Right Arm] Blood Pressure [or thostatic standing Right Arm] Pulse Oximetry 98 94 Oxygen Delivery Me thod Room Air Room Air 09/29/23 03:00 09/29/23 07:00 09/29/23 07:00 Temperature 98.3 F 97.8 F Pulse Rate [Pulse Oximeter] 78 72 72 Pulse Rate [orthos tatic lying Right Brachial] Pulse Rate [orthos tatic sitting Righ t Brachial] Pulse Rate [orthos tatic standing Rig ht Brachial] Respiratory Rate 16 20 Blood Pressure [Ri ght Arm] 117/59 L 133/86 Blood Pressure [or thostatic lying Ri ght Arm] Blood Pressure [or thostatic sitting Right Arm] Blood Pressure [or thostatic standing Right Arm] Pulse Oximetry 98 100 Oxygen Delivery Me thod Room Air Room Air 09/29/23 09:00 09/29/23 16:00 Temperature 98.3 F Pulse Rate [Pulse Oximeter] 80 Pulse Rate [orthos tatic lying Right Brachial] 79 Pulse Rate [orthos tatic sitting Righ t Brachial] 86 Pulse Rate [orthos tatic standing Rig ht Brachial] 98 Respiratory Rate 16 Blood Pressure [Ri ght Arm] 128/81 Blood Pressure [or thostatic lying Ri ght Arm] 109/56 L Blood Pressure [or thostatic sitting Right Arm] 122/63 Blood Pressure [or thostatic standing Right Arm] 105/59 L Pulse Oximetry 100 Oxygen Delivery Me thod Room Air Documenting provider has reviewed patient's vital signs: yes Labs Labs: Laboratory Results - last 24 hr 09/29/23 05:46 WBC 7.52 RBC 3.53 L Hgb 10.1 L Hct 31.7 L MCV 90 MCH 29 MCHC 32 RDW Coeff of Sharmaine 14.4 Plt Count 189 Neut % (Auto) 58.9 Lymph % (Auto) 24.6 [place] % (Auto) 12.5 H Eos % (Auto) 3.3 Baso % (Auto) 0.4 Neut # (Auto) 4.43 Lymph # (Auto) 1.85 [place] # (Auto) 0.90 Eos # (Auto) 0.25 Baso # (Auto) 0.03 Abs Immat Gran (auto) 0.02 Imm/Tot Granulo (auto) 0.3 Sodium 128 L Potassium 5.0 Chloride 102 Carbon Dioxide 19 L Anion Gap 7 BUN 22 Creatinine 0.9 Estimated Creat Clear 28.48 Estimated GFR 62 Glucose 252 H Calcium 8.3 L Magnesium 2.0 C-Reactive Protein 0.5
[2023-09-29 19:00] VITALS: BP 144/67; PULSE 85; RESP 20; TEMP 36.7; O2SAT 100
[2023-09-29] MEDS: COENZYME Q10 100 MG CAPSULE PO (21:13)
--- NOTE | 2023-09-29 21:15 | PC.NURSE ---
Patient pleasant, alert and oriented. Tolerated regular diet. Denied pain. Ambulated to bathroom with assist of one, walker and gait belt. VSS.
[2023-09-29 23:00] VITALS: BP 127/66; PULSE 67; RESP 20; TEMP 36.4; O2SAT 97
[2023-09-30 03:00] VITALS: BP 126/75; PULSE 67; RESP 16; O2SAT 97
[2023-09-30 06:54] LABS: Chloride* 104 mmol/L (96-114); Potassium* 4.5 mmol/L (3.6-5.1); Sodium* 132 mmol/L (135-149)
[2023-09-30 06:57] LABS: Anion Gap 9 mEq/L (7-15); Carbon Dioxide* 19 mmol/L (20-32); Creatinine* 0.8 mg/dL (0.5-1.5); Est. Creatinine Clearance* 28.28; Estimated Glomerular Filt Rate 72 ml/min
[2023-09-30 06:58] LABS: Blood Urea Nitrogen* 24 mg/dL (7-30); Calcium* 8.8 mg/dL (8.4-10.6); Glucose* 77 mg/dL (60-115)
[2023-09-30] MEDS: LEVOTHYROXINE 75 MCG TABLET PO (07:34)
[2023-09-30] MEDS: HYDROCORTISONE 10 MG TABLET 15 MG PO (07:34)
--- NOTE | 2023-09-30 07:52 | PC.NURSE ---
End of Shift [id number] ? Pt alert, oriented, and cooperative. Pt displayed instances of confusion evidence by repetitive statements. Easily redirected. Pt up to bathroom and in halls with standby assist and walker. Tolerating RA, regular diet. Pt denies SOB, nausea, dizziness, and pain. Family at bedside. Pt observed to sleep during shift. Pt appears to be resting comfortably at end of shift.
[2023-09-30 08:01] VITALS: BP 146/80; PULSE 78; RESP 16; TEMP 36.6; O2SAT 100
[2023-09-30] MEDS: CHOLESTYRAMINE POWDER 4 GM 8 GM PO (08:48)
[2023-09-30] MEDS: PSYLLIUM HUSK (WITH SUGAR) 12 GM PACKET PO (08:48)
[2023-09-30] MEDS: SODIUM CHLORIDE 1 GM TABLET PO (08:50)
[2023-09-30] MEDS: SODIUM BICARBONATE 650 MG TABLET 1300 MG PO (08:50)
[2023-09-30] MEDS: SODIUM CHLORIDE 0.9 % (FLUSH) 10 ML SYRINGE 5 ML IVF (08:51)
[2023-09-30] MEDS: FLUDROCORTISONE ACETATE 0.1 MG TABLET 0.2 MG PO (08:51)
[2023-09-30] MEDS: DIPHENOXYLATE-ATROP 2.5-0.025 TABLET 2 TAB PO (08:51)
[2023-09-30] MEDS: LOPERAMIDE HCL 2 MG CAPSULE 4 MG PO (08:51)
[2023-09-30] MEDS: SERTRALINE 50 MG TABLET PO (08:51)
[2023-09-30] MEDS: MULTIVITAMIN/MINERALS 1 TABLET 1 TAB PO (08:53)
[2023-09-30] MEDS: LACTOBACILLUS ACIDOPHILUS 1 TABLET 2 TAB PO (09:01)
[2023-09-30] MEDS: INSULIN ASPART 100 UNIT/ML 6 UNIT SUBCUT (09:02)
--- NOTE | 2023-09-30 09:47 | PC.NURSE ---
Nurse to nurse report given to Clemencia at [facility].
[2023-09-30 09:50] VITALS: BP 146/80; PULSE 80; RESP 16; TEMP 36.6
--- NOTE | 2023-09-30 11:12 | PC.NURSE ---
Patient was discharged to [facility] via nonemergent EMS. All belongings sent. Nurse to nurse was given earlier. Facility was notified of her return.
--- NOTE | 2023-09-30 11:27 | P.DS_ITS ---
DS: Providers Provider Date Seen: 09/30/23 Date of admission: 09/18/23 18:58 Primary care physician: Onur Schreiber MD Admitting Clinician: Adriel Rodriguez MD Attending Physician on discharge: Adriel Rodriguez MD Date of Discharge: 09/30/23 DS: Diagnosis Discharge Diagnosis (1) Addisonian crisis: Status: Acute Problem details: - Patient presented with hypotension hyperkalemia hyponatremia and vomiting consistent with addisonian or adrenal insufficiency crisis. Cause for this is uncertain. Most likely explanation so far seems to be high output from her ostomy causing hypotension, electrolyte abnormalities and inability of her adrenal glands to respond to physiologic stress Also now seen to be in AFib with RVR - Continue with fludrocortisone 0.1 mg daily. - initially treated with stress doses of hydrocortisone. Presently on 15 mg oral hydrocortisone every morning and 10 mg every evening, consistent with home dosing - stabilized (2) Primary adrenocortical insufficiency: Status: Chronic Problem details: -receive stress dose steroids, did well back to baseline (3) High output ileostomy: Status: Chronic Problem details: managed with imodium 4 mg q.i.d., diphenoxylate atropine 2 tablets q.i.d., cholestyramine, Metamucil, morphine. Morphine switched to immediately release liquid hoping it would improve absorption. (4) Polypharmacy: Status: Acute Problem details: Multiple unstable medical problems receiving multiple treatments requiring close monitoring (5) Chronic hyponatremia: Status: Acute Problem details: Primarily due to adrenal insufficiency. Sodium has been in the low 130s mostly. (6) Elevated liver transaminase level: Status: Acute Problem details: History of cholecystectomy. Cause of elevated LFTs is unknown. Not having obvious symptoms. (7) Diabetes mellitus type 1: Status: Chronic Problem details: Blood sugars have been difficult to manage with both hyper and hypoglycemia episodes. She is unaware of hypoglycemia. A discharge she will resume her prior insulin dosing from the [place] [facility]. (8) Renal tubular acidosis, type 4: Status: Acute Problem details: Due to adrenal insufficiency. Sodium bicarb increased due to metabolic acidosis (9) Atrial fibrillation: Status: Acute Problem details: - New diagnosis. She has been rate controlled without metoprolol. Eliquis was initiated at 2.5 mg twice daily, renal dosing. Eliquis then discontinued. Re- evaluate risks and benefits going forward and resume Eliquis if indicated - transthoracic echocardiogram 09/18/2023: Normal LV chamber size, normal wall thickness, hyperdynamic systolic function, EF 81%. Mild left atrial enlargement. Mild to moderate tricuspid regurgitation. RE-EVALUATE RATE CONTROL AND ANTICOAGULATION. CURRENTLY NOT REQUIRING RATE CONTROL AND RISKS AND BENEFITS OF ANTICOAGULATION (10) Chronic pain: Status: Acute Problem details: She has been on morphine on and off. This is been used for chronic pain in her back from compression fractures as well as generalized pain. It may also have benefits for her high output ostomy. At discharge I have switched her to oral liquid morphine to see if this is more effectively absorbed than MS Contin due to her high output ostomy. (11) Orthostasis: Status: Acute Problem details: Fludrocortisone increased today due to orthostatic symptoms and electrolyte problems. Furosemide and metoprolol the discontinued. Will need ongoing assessment of blood pressure, volume status and orthostatics to assess for dose of fludrocortisone and need for furosemide for volume control DS: Summary Hospital Course Hospital Course: 88-year-old female with [place]'s disease, type 1 diabetes, high output ileostomy admitted to the hospital in adrenal crisis with hyperkalemia, hyponatremia, hypotension, weakness. At the time of admission this was thought to be in adrenal crisis. The cause for this was uncertain though it was felt to be most likely due to increased ostomy output causing hypotension and electrolyte problems with her adrenal glands unable to respond to the crisis with a steroid burst. In the [place] [facility] she did receive an increase in her steroids prior to admission but this was not enough to avoid admission. At the time of admission she had a high output from her ileostomy. Initially she had stress dose steroids and IV fluids to deal with the crisis. During her hospital stay she had continuous attempts to treat her high output of her ostomy which were mildly effective. Diphenoxylate with atropine, morphine, Imodium, psyllium, cholestyramine or all used to reduce her ileostomy output with fair success. On this regimen we were able to mostly in normalized her electrolytes and volume status. Other interventions included increasing her fludrocortisone and sodium bicarb and stopping her furosemide and metoprolol. She was found to be in atrial fibrillation which was rate controlled. She was briefly on Eliquis. She did not need metoprolol for rate control or blood pressure control. Decision to continue anticoagulation deferred to outpatient provide balancing risks and benefits. Blood sugars were difficult to control, especially initially with her stress dose steroids. By the time of discharge she was back to insulin dosing close to her outpatient dose. At discharge she is resumed on her prior outpatient insulin dosing. Despite the multiple medical crises during her hospital stay she did fairly well. She did have brief episodes where she was more sedated. This was suspected to be a side effect of medication or possibly mild hospital delirium. These resolved relatively quickly. At discharge she will return to [address] [place] [address]. She will need close outpatient follow-up to monitor her blood sugars, vital signs, ostomy output, basic metabolic panel. Status at Discharge Functional status at discharge: uses cane/walker Overall status at discharge: patient is progressing back to baseline Time Spent with Patient Time attestation: Total time spent providing and/or coordinating discharge services: 45 minutes Time spent: Greater than 30 minutes Exam Narrative: Exam Narrative: She is alert and in no distress. Mood and affect are bright. Respirations are clear to auscultation. Cardiovascular: S1, S2 somewhat irregular. Abdomen is soft without tenderness. Moderate amount of greenish fluid in her ostomy bag Const: Vital Signs, click to edit/add: Vital Signs - 24 hr 09/29/23 16:00 09/29/23 19:00 09/29/23 23:00 Temperature 98.3 F 98.1 F 97.6 F Pulse Rate Pulse Rate [Pulse Oximeter] 80 85 67 Respiratory Rate 16 20 20 Blood Pressure Blood Pressure [Ri ght Arm] 128/81 144/67 H 127/66 Pulse Oximetry 100 100 97 Oxygen Delivery Me thod Room Air Room Air Room Air 09/30/23 03:00 09/30/23 08:01 09/30/23 09:50 Temperature 97.8 F 97.8 F Pulse Rate 80 Pulse Rate [Pulse Oximeter] 67 78 Respiratory Rate 16 16 16 Blood Pressure 146/80 H Blood Pressure [Ri ght Arm] 126/75 146/80 H Pulse Oximetry 97 100 Oxygen Delivery Me thod Room Air Room Air Documenting provider has reviewed patient's vital signs: yes DS: Data Data Completed and Pending Completed studies during hospitalization: Procedures Drainage of Stomach with Drainage Device, Via Natural or Artificial Opening (05/02/22) Insertion of Infusion Device into Left Internal Jugular Vein, Percutaneous Approach (05/02/22) Labs on day of discharge: Labs from last 24 hours 09/30/23 06:04 Sodium 132 L Potassium 4.5 Chloride 104 Carbon Dioxide 19 L Anion Gap 9 BUN 24 Creatinine 0.8 Estimated Creat Clear 28.28 Estimated GFR 72 Glucose 77 Calcium 8.8 Discharge Plan Discharge Disposition: [facility] Date of Admission: 09/18/23 18:58 Attending Provider on Discharge: Adriel Rodriguez Primary Care Provider: Onur Schreiber Condition: Improved Anticipated Discharge Date/Time: 09/30/23 09:09 Discharge Medications: New Metamucil (with sugar) 3.4 gram Powder In Packet 1 tbsp PO TIDWM Qty: 1045 0RF fludrocortisone 0.1 mg Tablet 0.2 mg PO DAILY Qty: 60 0RF diphenoxylate-atropine 2.5-0.025 mg Tablet 2 tab PO QID Qty: 240 0RF morphine 10 mg/5 mL solution 5 mg PO QID Qty: 500 0RF Continued acetaminophen 500 mg capsule 1,000 mg PO TID PRN ondansetron HCl 4 mg tablet 4 mg PO Q6H PRN simethicone 80 mg tablet,chewable 80 mg PO TID loperamide 2 mg Capsule 4 mg PO BID PRN sodium chloride 1,000 mg Tablet,Soluble 1,000 mg PO TIDWM 30 Days Qty: 90 0RF hydrocortisone 5 mg tablet 10 - 15 mg PO BID Rx Instructions: 15 MG IN AM 10 MG PM levothyroxine 75 mcg tablet 75 mcg PO DAILY estradiol 0.01 % (0.1 mg/gram) cream 1 appful VAGINAL .MOTH@HS Rx Instructions: MON, coenzyme Q10 100 mg capsule 100 mg PO HS olopatadine 0.2 % drops 1 drp ophthalmic (eye) DAILY cholecalciferol (vitamin D3) 50 mcg (2,000 unit) tablet 4,000 unit PO HS Women's One Daily 18 mg iron-400 mcg-500 mg Ca tablet 1 tab PO DAILY vitamin B complex [Vitamins B Complex] Capsule 1 cap PO DAILY Probiotic 3 billion cell capsule 3,000 mmu cells PO DAILY Rx Instructions: administer with a meal sertraline 50 mg tablet 50 mg PO DAILY glucose [Dex4 Glucose] 4 gram tablet,chewable 4 g PO Q15M PRN aspirin 81 mg tablet,chewable 81 mg PO HS Glucagon Emergency Kit (human) 1 mg recon soln 1 mg IM ONCE PRN insulin aspart U-100 100 unit/mL (3 mL) insulin pen 7 - 10 unit subcut TIDWM Rx Instructions: 10 UNITS IN AM 7 UNIT AT LUNCH 9 UNIT SUPPER insulin aspart U-100 100 unit/mL (3 mL) insulin pen 5 sliding scale dose subcut USEASDIRECTD Rx Instructions: 0-5 UNITS PER SLIDING SCALE nitroglycerin 0.4 mg tablet, sublingual 0.4 mg sublingual Q5M PRN Changed sodium bicarbonate 650 mg Tablet 1,300 mg PO TIDWM Qty: 180 0RF insulin glargine [Lantus Solostar U-100 Insulin] 100 unit/mL (3 mL) insulin pen 8 unit SUBCUT HS Qty: 15 0RF Discontinued metoprolol tartrate 25 mg tablet 12.5 mg PO BID morphine 15 mg tablet extended release 15 mg PO TID furosemide 20 mg tablet 30 mg PO DAILY fludrocortisone 0.1 mg tablet 0.1 mg PO DAILY Discharge Orders: Discharge Order (Routine); Ordered 09/30/23 Ordered By: Adriel Rodriguez Activity Level: Activity as Tolerated Discharge Diet: Regular Follow Up Appointments: [facility] [Outside] (Patient is being discharged to [facility].) Onur Schreiber MD [Primary Care Provider] - Forms: [facility] Info Instructions Ostomy Care: Check and empty ostomy bag frequently to avoid over filling and leaking Admit to: SNF Discharge Potential: Poor Length of Stay: >90 days Can use facility standing orders?: Yes Code Status: DNR/DNI Rehab Potential: Poor Oxygen: No Urinary Catheter: No Glucose Checks: Check blood sugar before meals and at bedtime Lab Orders: Check basic metabolic panel in 6 days
--- NOTE | 2023-09-30 13:56 | PC.SOCIAL ---
Discharge planning: Late entry: Met with pt who is aware and agrees with plan for discharge back to [facility] today. Pt requested medical transport be arranged by the hospital as she typically uses [facility] provided transportation for discharge from the hospital. Offered to contact pt's family regarding d/c plan, but pt states she will call them herself. Called [facility] and spoke with Matilda who states they will accept pt back today before 2:00pm. Received call from pt's son, who stated pt called him but gave him the wrong information on where she was going fro the hospital. Confirmed with son that pt went back to [facility]. Son's questions were answered. Called pt's [facility] [employer] to confirm discharge today to [facility].
== END 2023-09-30 11:13 | DRG 424 ==
LOC: ED 16:12 → MEDSURG 18:38
PROVIDERS: Family Medicine; Internal Medicine; Physician Assistant; Admitting Provider Family Medicine; Emergency Provider Emergency Medicine; PCP Family Medicine; Visit Provider Family Medicine
DX: E27.2 Addisonian crisis (principal); I48.20 Chronic atrial fibrillation, unspecified; E87.1 Hypo-osmolality and hyponatremia; E87.5 Hyperkalemia; I95.1 Orthostatic hypotension; R19.8 Other specified symptoms and signs involving the digestive system and abdomen; Z93.2 Ileostomy status; E10.43 Type 1 diabetes mellitus with diabetic autonomic (poly)neuropathy; K31.84 Gastroparesis; Z79.4 Long term (current) use of insulin; N25.89 Other disorders resulting from impaired renal tubular function; R74.01 Elevation of levels of liver transaminase levels; I12.9 Hypertensive chronic kidney disease with stage 1 through stage 4 chronic kidney disease, or unspecified chronic kidney disease; N18.4 Chronic kidney disease, stage 4 (severe); R54 Age-related physical debility; R41.82 Altered mental status, unspecified; G89.29 Other chronic pain; M54.9 Dorsalgia, unspecified; E78.5 Hyperlipidemia, unspecified; E10.649 Type 1 diabetes mellitus with hypoglycemia without coma
CPT/HCPCS: 36415; 51798; 80048; 80076; 81001; 82270; 82803; 82947; 82962; 83605; 83735; 84439; 84443; 84484; 85018; 85025; 85610; 86140; 87040; 87086; 87493; 87631; 93005; 93306; 94761; 97161; 97165; 99285; A9153; A9270; J0610; J1720; J1940; J2405; J7030; J7042; J7070; J7120

== ENCOUNTER 2023-09-30 11:10 | Outpatient (CLI) | payer BC, SELFPAY | END 2023-09-30 11:11 | disposition home or self-care (01) | PROVIDERS: PCP Family Medicine; Visit Provider Family Medicine | DX: R53.1 Weakness (principal); Z99.3 Dependence on wheelchair | CPT/HCPCS: A0425; A0428 ==

== ENCOUNTER 2023-10-31 09:53 | Outpatient (REF) | payer BC, SELFPAY ==
[2023-10-31 10:33] LABS: Chloride* 92 mmol/L (96-114); Potassium* 5.3 mmol/L (3.6-5.1); Sodium* 126 mmol/L (135-149)
[2023-10-31 10:35] LABS: Creatinine* 1.3 mg/dL (0.5-1.5); Estimated Glomerular Filt Rate 40 ml/min
[2023-10-31 10:36] LABS: Anion Gap 11 mEq/L (7-15); Blood Urea Nitrogen* 33 mg/dL (7-30); Calcium* 9.4 mg/dL (8.4-10.6); Carbon Dioxide* 23 mmol/L (20-32)
[2023-10-31 11:00] LABS: Glucose* 368 mg/dL (60-115)
== END 2023-10-31 09:54 | disposition home or self-care (01) ==
LOC: NPINS 09:53
PROVIDERS: PCP Family Medicine; Visit Provider Nurse Practitioner Adult Health
DX: E87.5 Hyperkalemia (principal); E27.1 Primary adrenocortical insufficiency
CPT/HCPCS: 80048

== ENCOUNTER 2023-11-05 11:34 | Outpatient (REF) | payer BC, SELFPAY ==
[2023-11-05 12:49] LABS: Chloride* 101 mmol/L (96-114); Potassium* 5.9 mmol/L (3.6-5.1); Sodium* 128 mmol/L (135-149)
[2023-11-05 12:52] LABS: Anion Gap 8 mEq/L (7-15); Blood Urea Nitrogen* 45 mg/dL (7-30); Carbon Dioxide* 19 mmol/L (20-32); Creatinine* 1.3 mg/dL (0.5-1.5); Estimated Glomerular Filt Rate 40 ml/min
[2023-11-05 12:53] LABS: Calcium* 9.3 mg/dL (8.4-10.6); Glucose* 274 mg/dL (60-115)
== END 2023-11-05 11:35 | disposition home or self-care (01) ==
LOC: NPINS 11:34
PROVIDERS: PCP Family Medicine; Visit Provider Nurse Practitioner Adult Health
DX: I10 Essential (primary) hypertension (principal)
CPT/HCPCS: 80048

== ENCOUNTER 2023-11-12 09:41 | Outpatient (REF) | payer BC, SELFPAY ==
[2023-11-12 10:07] LABS: Chloride* 103 mmol/L (96-114); Potassium* 4.7 mmol/L (3.6-5.1); Sodium* 132 mmol/L (135-149)
[2023-11-12 10:09] LABS: Creatinine* 1.2 mg/dL (0.5-1.5); Estimated Glomerular Filt Rate 44 ml/min
[2023-11-12 10:10] LABS: Anion Gap 11 mEq/L (7-15); Blood Urea Nitrogen* 36 mg/dL (7-30); Calcium* 9.5 mg/dL (8.4-10.6); Carbon Dioxide* 18 mmol/L (20-32); Glucose* 322 mg/dL (60-115)
== END 2023-11-12 09:42 | disposition home or self-care (01) ==
LOC: NPINS 09:41
PROVIDERS: PCP Family Medicine; Visit Provider Nurse Practitioner Adult Health
DX: E87.1 Hypo-osmolality and hyponatremia (principal)
CPT/HCPCS: 80048

== ENCOUNTER 2023-11-19 08:17 | Outpatient (REF) | payer BC, SELFPAY ==
[2023-11-19 09:40] LABS: Chloride* 96 mmol/L (96-114)
[2023-11-19 09:41] LABS: Potassium* 5.4 mmol/L (3.6-5.1); Sodium* 128 mmol/L (135-149)
[2023-11-19 09:43] LABS: Creatinine* 1.2 mg/dL (0.5-1.5); Estimated Glomerular Filt Rate 44 ml/min
[2023-11-19 09:44] LABS: Anion Gap 9 mEq/L (7-15); Blood Urea Nitrogen* 40 mg/dL (7-30); Calcium* 9.4 mg/dL (8.4-10.6); Carbon Dioxide* 23 mmol/L (20-32); Glucose* 309 mg/dL (60-115)
== END 2023-11-19 08:18 | disposition home or self-care (01) ==
LOC: NPINS 08:17
PROVIDERS: PCP Family Medicine; Visit Provider Nurse Practitioner Adult Health
DX: E87.1 Hypo-osmolality and hyponatremia (principal)
CPT/HCPCS: 80048

== ENCOUNTER 2023-11-30 02:26 | Outpatient (CLI) | payer BC, SELFPAY | END 2023-11-30 02:27 | disposition home or self-care (01) | LOC: AMB 12-01 10:59 | PROVIDERS: PCP Family Medicine; Visit Provider Family Medicine | DX: R55 Syncope and collapse (principal) | CPT/HCPCS: A0425; A0427 ==

== ENCOUNTER 2023-11-30 02:51 | Inpatient (IN) | payer BC, SELFPAY ==
[2023-11-30] VITALS (22 sets, daily range): BP systolic 99–155; BP diastolic 54–85; PULSE 50–92; RESP 14–18; TEMP 36.4–37.2; O2SAT 90–100; BMI 16.3
--- NOTE | 2023-11-30 02:55 | CRLHL7_ITS ---
For Patients: As a result of the Cures Act, medical imaging exams and procedure reports are released immediately into your electronic medical record. You may view this report before your referring provider. If you have questions, please contact your health care provider. INDICATION: Acute mental status change. Delirium TECHNIQUE: Noncontrast axial CT of the head is submitted. Compared to prior study from July 22, 2022. FINDINGS: Stable mild cerebral atrophy. The ventricles, sulci and gyri are of normal size, shape and contour for age and degree of atrophy. Midline structures are centrally located. No convincing evidence of suspicious intra- or extra-axial fluid collections. Stable mild patchy regions of decreased attenuation within the periventricular and subcortical white matter of both cerebral hemispheres. IMPRESSION: 1. Stable, no radiographic evidence of acute intracranial abnormalities. 2. Stable mild cerebral atrophy. 3. Stable mild supratentorial white matter changes that are non-specific, but statistically most likely related to chronic small vessel ischemic disease. Dictated by Jose Deal MD @ 11/30/2023 3:41:41 AM Please note that all CT scans at this facility use dose modulation, iterative reconstruction, and/or weight-based dosing when appropriate to reduce radiation dose to as low as reasonably achievable. Dictated by: Jose Deal MD @ 11/30/2023 03:41:57 (Electronically Signed)
--- NOTE | 2023-11-30 02:55 | CRLHL7_ITS ---
For Patients: As a result of the Cures Act, medical imaging exams and procedure reports are released immediately into your electronic medical record. You may view this report before your referring provider. If you have questions, please contact your health care provider. Indication: Neck pain. Trauma. Delirium. Mental status change. Technique: Noncontrast axial CT of the cervical spine with coronal and sagittal reformats are provided. Compared to prior study from April 06, 2022 Findings: The overall stature, alignment of the cervical spine is within normal limits. No convincing evidence of suspicious bony fragments narrowing the central canal or neural foramina. Prevertebral soft tissues, cervical airway, dens and lateral masses are within normal limits. Mild scattered degenerative changes of the cervical spine. Impression: 1. No convincing radiographic evidence of acute osseous injury. 2. Mild scattered degenerative changes of the cervical spine. Dictated by Jose Deal MD @ 11/30/2023 3:43:57 AM Please note that all CT scans at this facility use dose modulation, iterative reconstruction, and/or weight-based dosing when appropriate to reduce radiation dose to as low as reasonably achievable. Dictated by: Jose Deal MD @ 11/30/2023 03:44:12 (Electronically Signed)
--- NOTE | 2023-11-30 02:57 | ED_ITS ---
HPI - General Adult General Chief complaint: Altered Mental Status Stated complaint: Altered status Time Seen by Provider: 11/30/23 02:55 History of Present Illness HPI narrative: Patient is a 88-year-old woman who is brought in from a local longterm will with acute change overnight from her usual conversant self to being will responsive only to physical stimuli. She answers nonsensically. She really has no focal defects but does not follow commands well enough for full assessment. This is a abrupt change and as result she sent over for further evaluation. Patient is unable to answer any questions and no further history is available. There does not appear to be recent history of trauma. Related Data Home Medications Medication Instructions Recorded Confirmed cholecalciferol (vitamin D3) 50 4,000 unit PO HS 05/02/22 09/19/23 mcg (2,000 unit) tablet coenzyme Q10 100 mg capsule 100 mg PO HS 05/02/22 09/19/23 estradiol 0.01% (0.1 mg/gram) 1 appful vaginal .MOTH@HS 05/02/22 09/19/23 vaginal cream hydrocortisone 5 mg tablet 10 - 15 mg PO BID 05/02/22 09/19/23 lactobacillus combination no.4 3 3,000 mmu cells PO DAILY 05/02/22 09/19/23 billion cell capsule (Probiotic) levothyroxine 75 mcg tablet 75 mcg PO DAILY 05/02/22 09/19/23 multivit-iron 18 mg-folic acid 400 1 tab PO DAILY 05/02/22 09/19/23 mcg-calcium 500 mg-minerals tablet (Women's One Daily) olopatadine 0.2 % eye drops 1 drp ophthalmic (eye) DAILY 05/02/22 09/19/23 vitamin B complex (Vitamins B 1 cap PO DAILY 05/02/22 09/19/23 Complex capsule) acetaminophen 500 mg capsule 1,000 mg PO TID PRN 05/28/22 09/19/23 ondansetron HCl 4 mg tablet 4 mg PO Q6H PRN 05/28/22 09/19/23 simethicone 80 mg chewable tablet 80 mg PO TID 05/28/22 09/19/23 aspirin 81 mg chewable tablet 81 mg PO HS 03/03/23 09/19/23 glucose 4 gram chewable tablet 4 g PO Q15M PRN 03/03/23 09/19/23 (Dex4 Glucose) sertraline 50 mg tablet 50 mg PO DAILY 03/03/23 09/19/23 loperamide 2 mg capsule 4 mg PO BID PRN 03/27/23 09/19/23 glucagon 1 mg solution for 1 mg IM ONCE PRN 09/19/23 09/19/23 injection (Glucagon Emergency Kit) insulin aspart U-100 100 unit/mL 5 sliding scale dose subcut 09/19/23 09/19/23 (3 mL) subcutaneous pen USEASDIRECTD insulin aspart U-100 100 unit/mL 7 - 10 unit subcut TIDWM 09/19/23 09/19/23 (3 mL) subcutaneous pen nitroglycerin 0.4 mg sublingual 0.4 mg sublingual Q5M PRN 09/19/23 09/19/23 tablet Previous Rx's Medication Instructions Recorded sodium chloride 1,000 mg soluble 1,000 mg PO TIDWM 30 days #90 tabs 04/02/23 tablet diphenoxylate-atropine 2.5 2 tab PO QID #240 tabs 09/30/23 mg-0.025 mg tablet fludrocortisone 0.1 mg tablet 0.2 mg (2 x 0.1 mg) PO DAILY #60 09/30/23 tabs insulin glargine 100 unit/mL (3 8 unit (0.08 mL) subcut HS #15 mL 09/30/23 mL) subcutaneous pen (Lantus Solostar U-100 Insulin) morphine 10 mg/5 mL oral solution 5 mg (2.5 mL) PO QID #500 mL 09/30/23 psyllium husk (with sugar) 3.4 1 tbsp PO TIDWM #1,045 grams 09/30/23 gram oral powder packet (Metamucil (with sugar)) sodium bicarbonate 650 mg tablet 1,300 mg (2 x 650 mg) PO TIDWM 09/30/23 #180 tabs Allergies Allergy/AdvReac Type Severity Reaction Status Date / Time adhesive tape Allergy Mild Rash Verified 11/30/23 03:03 diclofenac Allergy Unknown Verified 11/30/23 03:03 aspartame Allergy Verified 11/30/23 03:03 beclomethasone Allergy Verified 11/30/23 03:03 bisacodyl Allergy Verified 11/30/23 03:03 dexamethasone Allergy Verified 11/30/23 03:03 doxycycline Allergy Verified 11/30/23 03:03 erythromycin base Allergy Verified 11/30/23 03:03 gabapentin Allergy Verified 11/30/23 03:03 hydrochlorothiazide Allergy Verified 11/30/23 03:03 lactase [From Dairy Aid] Allergy Verified 11/30/23 03:03 meclizine Allergy Verified 11/30/23 03:03 metformin Allergy Verified 11/30/23 03:03 metoclopramide Allergy Verified 11/30/23 03:03 nabumetone [From Relafen] Allergy Verified 11/30/23 03:03 propranolol Allergy Verified 11/30/23 03:03 raloxifene Allergy Verified 11/30/23 03:03 ramipril Allergy Verified 11/30/23 03:03 tobramycin Allergy Verified 11/30/23 03:03 venlafaxine Allergy Verified 11/30/23 03:03 Review of Systems Status of ROS: Reports: unobtainable due to mental status PFSH COUNTS INCLUDE 234 BEDS AT THE [facility] Medical History (Updated 11/30/23 @ 04:22 by Adrian Rossi MD) Chronic pain ?G89.29 - Other chronic pain (ICD-10) Altered mental status ?R41.82 - Altered mental status, unspecified (ICD-10) Atrial fibrillation ?I48.91 - Unspecified atrial fibrillation (ICD-10) Diabetes mellitus type 1 (12/22/11) ?E10.9 - Type 1 diabetes mellitus without complications (ICD-10) Renal tubular acidosis, type 4 ?N25.89 - Other disorders resulting from impaired renal tubular function (ICD-10) Ileostomy in place ?Z93.2 - Ileostomy status (ICD-10) Unsteady gait ?R26.81 - Unsteadiness on feet (ICD-10) Polypharmacy ?Z79.899 - Other jail (current) drug therapy (ICD-10) Osteoporosis ?M81.0 - Age-related osteoporosis without current pathological fracture (ICD- 10) Ketoacidosis due to diabetes mellitus (08/03/13) ?E11.10 - Type 2 diabetes mellitus with ketoacidosis without coma (ICD-10) Irritable bowel syndrome ?K58.9 - Irritable bowel syndrome without diarrhea (ICD-10) Falls (03/31/12) ?W19.XXXA - Unspecified fall, initial encounter (ICD-10) Epistaxis ?R04.0 - Epistaxis (ICD-10) Diverticulitis of large intestine ?K57.32 - Diverticulitis of large intestine without perforation or abscess without bleeding (ICD-10) Diabetic gastroparesis (08/03/13) ?E11.43 - Type 2 diabetes mellitus with diabetic autonomic (poly)neuropathy (ICD-10) ?K31.84 - Gastroparesis (ICD-10) Coronary artery disease ?I25.10 - Atherosclerotic heart disease of grindstone coronary artery without angina pectoris (ICD-10) Concussion (03/29/12) ?S06.0XAA - Concussion with loss of consciousness status unknown, initial encounter (ICD-10) Compression fracture of L2 vertebra with delayed healing ?S32.020G - Wedge compression fracture of second lumbar vertebra, subsequent encounter for fracture with delayed healing (ICD-10) Closed head injury ?S09.90XA - Unspecified injury of head, initial encounter (ICD-10) Closed fracture of superior ramus of right pubis ?S32.511A - Fracture of superior rim of right pubis, initial encounter for closed fracture (ICD-10) Closed fracture of left side of symphysis pubis ?S32.592A - Other specified fracture of left pubis, initial encounter for closed fracture (ICD-10) Closed fracture of left inferior pubic ramus ?S32.592A - Other specified fracture of left pubis, initial encounter for closed fracture (ICD-10) Chronic constipation (07/02/13) ?K59.09 - Other constipation (ICD-10) Anxiety disorder ?F41.9 - Anxiety disorder, unspecified (ICD-10) 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 (ICD-10) Seizure ?R56.9 - Unspecified convulsions (ICD-10) Hypothyroidism ?E03.9 - Hypothyroidism, unspecified (ICD-10) Hyponatremia (12/22/11) ?E87.1 - Hypo-osmolality and hyponatremia (ICD-10) Hyperkalemia (12/22/11) ?E87.5 - Hyperkalemia (ICD-10) Gastroesophageal reflux disease ?K21.9 - Gastro-esophageal reflux disease without esophagitis (ICD-10) Chronic pain ?G89.29 - Other chronic pain (ICD-10) Asthma ?J45.909 - Unspecified asthma, uncomplicated (ICD-10) Acute adrenal crisis ?E27.2 - Addisonian crisis (ICD-10) POLST (Physician Orders for Life-Sustaining Treatment) ?Z78.9 - Other specified health status (ICD-10) Health care directive on file ?Z78.9 - Other specified health status (ICD-10) High output ileostomy ?R19.8 - Other specified symptoms and signs involving the digestive system and abdomen (ICD-10) ?Z93.2 - Ileostomy status (ICD-10) Hyperkalemia ?E87.5 - Hyperkalemia (ICD-10) Abnormal liver enzymes ?R74.8 - Abnormal levels of other serum enzymes (ICD-10) Dementia ?F03.90 - Unspecified dementia without behavioral disturbance (ICD-10) Cataract ?H26.9 - Unspecified cataract (ICD-10) Dorsalgia ?M54.9 - Dorsalgia, unspecified (ICD-10) Hyperlipidemia ?E78.5 - Hyperlipidemia, unspecified (ICD-10) Unspecified dementia without behavioral disturbance ?F03.90 - Unspecified dementia without behavioral disturbance (ICD-10) Postmenopausal atrophic vaginitis ?N95.2 - Postmenopausal atrophic vaginitis (ICD-10) Convulsions ?R56.9 - Unspecified convulsions (ICD-10) Pressure ulcer of sacral region, unstageable ?L89.150 - Pressure ulcer of sacral region, unstageable (ICD-10) Constipation ?K59.00 - Constipation, unspecified (ICD-10) Primary hypertension ?I10 - Essential (primary) hypertension (ICD-10) Vertebral fracture Osteoarthritis ?M19.90 - Unspecified osteoarthritis, unspecified site (ICD-10) Chronic kidney disease (CKD) stage G3a/A1, moderately decreased glomerular filtration rate (GFR) between 45-59 mL/min/1.73 square meter and albuminuria creatinine ratio less than 30 mg/g ?N18.31 - Chronic kidney disease, stage 3a (ICD-10) 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 - Atherosclerotic heart disease of grindstone coronary artery without angina pectoris (ICD-10) GERD (gastroesophageal reflux disease) ?K21.9 - Gastro-esophageal reflux disease without esophagitis (ICD-10) Anxiety ?F41.9 - Anxiety disorder, unspecified (ICD-10) Pelvic fracture ?S32.9XXA - Fracture of unspecified parts of lumbosacral spine and pelvis, initial encounter for closed fracture (ICD-10) Primary adrenocortical insufficiency ?E27.1 - Primary adrenocortical insufficiency (ICD-10) Diabetes mellitus type 1 ?E10.9 - Type 1 diabetes mellitus without complications (ICD-10) Surgical History S/P small bowel resection ?Z90.49 - Acquired absence of other specified parts of digestive tract (ICD- 10) H/O angioplasty ?Z98.62 - Peripheral vascular angioplasty status (ICD-10) H/O mastoidectomy ?Z90.89 - Acquired absence of other organs (ICD-10) S/P laparoscopic cholecystectomy ?Z90.49 - Acquired absence of other specified parts of digestive tract (ICD- 10) S/P appendectomy ?Z90.49 - Acquired absence of other specified parts of digestive tract (ICD- 10) No significant past surgical history Social History (Updated 09/18/23 @ 22:30 by Adriel Rodriguez MD) Narrative: Patient lives in a longterm. Code status DNR DNI What is your current living situation?: I presently have a place to live Problems where you live: no known problems Problems where you live details: none In the past 12 months, utilities in danger of being shut off: no In past 12 months, lack of transportation kept you from medical appts, meetings, work, or getting things needed for daily living: no In the past 12 mos, have been you worried that your food would run out before you had money to buy more?: never true In the past 12 mos, the food you bought just didn't last and you didn't have money to buy more?: never true Highest level of school completed/degree received: Master's degree Smoking Status: Never smoker Do you use any of these nicotine containing products: None Second hand tobacco smoke exposure: No How often do you have a drink containing alcohol: never How often do you have six or more drinks on one occasion: Never AUDIT-C Alcohol total score: 0 Non-prescribed substance use: denies use Caffeine: Yes (diet coke) How often does anyone, including family, friends and others, physically hurt you : never How often does anyone, including family, friends and others, insult or talk down to you: never How often does anyone, including family, friends and others, threaten you with harm: never How often does anyone, including family, friends and others, scream or curse at you: never service: No Exam Narrative: Exam Narrative: EXAM GENERAL: Patient appears to be nearly catatonic responsive tips painful stimuli with no focal neurologic defects. EYES: No scleral icterus. LYMPH: No supraclavicular or cervical lymphadenopathy. SKIN: Visible skin seen during exam normal or with benign process only. EXT: No dependent lower extremity pedal edema. HEART: Regular rate and rhythm with no murmurs, rubs, or gallops. LUNGS: Clear to auscultation bilaterally with no crackles or wheezes. ABD: Soft, non tender, non distended. Const: Vital Signs, click to edit/add: Vital Signs - 24 hr 11/30/23 03:10 11/30/23 03:33 11/30/23 03:34 Temperature 97.7 F Pulse Rate [Left P ulse Oximeter] 75 Respiratory Rate 16 Blood Pressure [Ri ght Upper Arm] 137/76 Pulse Oximetry 94 94 94 11/30/23 03:40 11/30/23 03:50 11/30/23 04:00 Temperature Pulse Rate [Left P ulse Oximeter] Respiratory Rate Blood Pressure [Ri ght Upper Arm] Pulse Oximetry 95 100 94 11/30/23 04:03 Temperature Pulse Rate [Left P ulse Oximeter] Respiratory Rate Blood Pressure [Ri ght Upper Arm] Pulse Oximetry 95 Course Course ED Course: CBC CMP lactate UA troponin EKG CT head and cervical spine pending. Vital Signs Vital signs: Initial Vital Signs Temperature 97.7 F 11/30/23 03:10 Temperature Source Temporal Artery Scan 11/30/23 03:10 Pulse Rate 75 11/30/23 03:10 Respiratory Rate 16 11/30/23 03:10 Blood Pressure 137/76 11/30/23 03:10 Blood Pressure Mean 96 11/30/23 03:10 Blood Pressure Position Supine 11/30/23 03:10 Pulse Oximetry 94 11/30/23 03:10 Vital Signs Temperature 97.7 F 11/30/23 03:10 Pulse Rate 75 11/30/23 03:10 Respiratory Rate 16 11/30/23 03:10 Blood Pressure 137/76 11/30/23 03:10 Pulse Oximetry 94 11/30/23 03:10 Temperature 97.7 F 11/30/23 03:10 Pulse Rate 75 11/30/23 03:10 Respiratory Rate 16 11/30/23 03:10 Blood Pressure 137/76 11/30/23 03:10 Pulse Oximetry 95 11/30/23 04:03 Medications Administered Medications: Discontinued Medications Generic Name Dose Route Start Last Admin Trade Name Eric PRN Reason Stop Dose Admin Sodium Chloride 500 mls @ 500 mls/hr 11/30/23 03:12 11/30/23 03:35 0.9 % Sodium Chloride 500 Ml IV 11/30/23 04:11 500 mls/hr .Q1H ONE Administration Medical Decision Making MDM Narrative Medical decision making narrative: Patient is a 88-year-old woman who presented with change in sensorium from a local nursing go. I did do CT of her head and neck no acute findings were noted. Labs reviewed. Her lactate was noted to be elevated I did give her L of normal saline. She also has a remarkably suppressed sodium and elevated potassium. She has history of type 4 RTA as well. I do think that after reviewing her POLST keeping her in the hospital for management of her electrolytes would be reasonable. Care transferred to the hospitalist. Differential Diagnosis Differential Diagnosis: Sepsis myocardial infarction pneumonia UTI acute abdomen stroke seizure Lab Data Labs: Lab Results 11/30/23 Range/Units 03:55 WBC 9.76 (4.50-11.00) K/uL RBC 5.07 (4.00-5.20) m/uL Hgb 14.8 (12.0-16.0) gm/dL Hct 44.8 (33.0-51.0) % MCV 88 (80-100) fL MCH 29 (26-34) pg MCHC 33 (32-36) gm/dL RDW Coeff of Sharmaine 14.5 (11.5-15.5) % Plt Count 228 (140-440) K/uL Neut % (Auto) 56.2 (42.0-72.0) % Lymph % (Auto) 29.6 (20-44) % Clarke % (Auto) 10.8 (0.0-11.0) % Eos % (Auto) 2.4 (0.0-7.0) % Baso % (Auto) 0.4 (0.0-3.0) % Neut # (Auto) 5.49 (1.7-7.0) K/uL Lymph # (Auto) 2.89 (0.90-2.90) K/uL Clarke # (Auto) 1.10 H (0.00-0.90) K/UL Eos # (Auto) 0.23 (0.00-0.50) K/uL Baso # (Auto) 0.04 (0.00-0.30) K/uL Abs Immat Gran (auto) 0.06 (0.00-0.30) K/uL Imm/Tot Granulo (auto) 0.6 % Sodium 123 L* (135-149) mmol/L Potassium 6.4 H* (3.6-5.1) mmol/L Chloride 94 L (96-114) mmol/L Carbon Dioxide 18 L (20-32) mmol/L Anion Gap 11 (7-15) mEq/L BUN 55 H (7-30) mg/dL Creatinine 1.5 (0.5-1.5) mg/dL Estimated GFR 34 ml/min Glucose 215 H (60-115) mg/dL Lactate 4.0 H (0.5-1.9) mmol/L Calcium 9.3 (8.4-10.6) mg/dL Total Bilirubin 0.8 (0.1-1.5) mg/dL AST 65 H (12-35) U/L ALT 73 H (4-35) U/L Alkaline Phosphatase 125 (40-150) U/L Total Protein 7.1 (6.0-8.3) g/dL Albumin 4.4 (3.3-5.0) g/dL Discharge Plan Discharge Clinical Impression: Altered mental status Patient Disposition: Admitted As Observation Condition: Stable Additional Instructions: Resume previous care Activity Level: No Restrictions and Other Discharge Diet: Regular and Other Prescriptions: No Action acetaminophen 500 mg capsule 1,000 mg PO TID PRN ondansetron HCl 4 mg tablet 4 mg PO Q6H PRN simethicone 80 mg tablet,chewable 80 mg PO TID loperamide 2 mg Capsule 4 mg PO BID PRN sodium chloride 1,000 mg Tablet,Soluble 1,000 mg PO TIDWM 30 Days Qty: 90 0RF hydrocortisone 5 mg tablet 10 - 15 mg PO BID Rx Instructions: 15 MG IN AM 10 MG PM levothyroxine 75 mcg tablet 75 mcg PO DAILY estradiol 0.01 % (0.1 mg/gram) cream 1 appful VAGINAL .MOTH@HS Rx Instructions: MON, coenzyme Q10 100 mg capsule 100 mg PO HS olopatadine 0.2 % drops 1 drp ophthalmic (eye) DAILY cholecalciferol (vitamin D3) 50 mcg (2,000 unit) tablet 4,000 unit PO HS Women's One Daily 18 mg iron-400 mcg-500 mg Ca tablet 1 tab PO DAILY vitamin B complex [Vitamins B Complex] Capsule 1 cap PO DAILY Probiotic 3 billion cell capsule 3,000 mmu cells PO DAILY Rx Instructions: administer with a meal sertraline 50 mg tablet 50 mg PO DAILY glucose [Dex4 Glucose] 4 gram tablet,chewable 4 g PO Q15M PRN aspirin 81 mg tablet,chewable 81 mg PO HS Glucagon Emergency Kit (human) 1 mg recon soln 1 mg IM ONCE PRN insulin aspart U-100 100 unit/mL (3 mL) insulin pen 7 - 10 unit subcut TIDWM Rx Instructions: 10 UNITS IN AM 7 UNIT AT LUNCH 9 UNIT SUPPER insulin aspart U-100 100 unit/mL (3 mL) insulin pen 5 sliding scale dose subcut USEASDIRECTD Rx Instructions: 0-5 UNITS PER SLIDING SCALE nitroglycerin 0.4 mg tablet, sublingual 0.4 mg sublingual Q5M PRN Metamucil (with sugar) 3.4 gram Powder In Packet 1 tbsp PO TIDWM Qty: 1045 0RF fludrocortisone 0.1 mg Tablet 0.2 mg PO DAILY Qty: 60 0RF diphenoxylate-atropine 2.5-0.025 mg Tablet 2 tab PO QID Qty: 240 0RF morphine 10 mg/5 mL solution 5 mg PO QID Qty: 500 0RF sodium bicarbonate 650 mg Tablet 1,300 mg PO TIDWM Qty: 180 0RF insulin glargine [Lantus Solostar U-100 Insulin] 100 unit/mL (3 mL) insulin pen 8 unit SUBCUT HS Qty: 15 0RF Stand Alone Forms: [facility] Info Instructions
[2023-11-30] MEDS: 0.9 % SODIUM CHLORIDE 500 ML 500 ML IV (03:35)
[2023-11-30 04:02] LABS: Basophils Absolute Auto 0.04 K/uL (0.00-0.30); Basophils Percent Auto 0.4 % (0.0-3.0); Eosinophils Absolute Auto 0.23 K/uL (0.00-0.50); Eosinophils Percent Auto 2.4 % (0.0-7.0); Hematocrit 44.8 % (33.0-51.0); Hemoglobin* 14.8 gm/dL (12.0-16.0); Immature Granulocytes Abs Auto 0.06 K/uL (0.00-0.30); Immature Granulocytes Pct Auto 0.6 %; Lymphocytes Absolute Auto 2.89 K/uL (0.90-2.90); Lymphocytes Percent Auto 29.6 % (20-44); Mean Corpuscular HGB Conc 33 gm/dL (32-36); Mean Corpuscular Hemoglobin 29 pg (26-34); Mean Corpuscular Volume 88 fL (80-100); Monocytes Percent Auto 10.8 % (0.0-11.0); Neutrophils Absolute Auto 5.49 K/uL (1.7-7.0); Neutrophils Percent Auto 56.2 % (42.0-72.0); Platelet Count* 228 K/uL (140-440); RDW Coefficient of Variation % 14.5 % (11.5-15.5); Red Blood Count 5.07 m/uL (4.00-5.20); White Blood Count* 9.76 K/uL (4.50-11.00)
[2023-11-30 04:05] LABS: Slide Review Reflex No
[2023-11-30 04:17] LABS: Chloride* 94 mmol/L (96-114)
[2023-11-30 04:18] LABS: Albumin* 4.4 g/dL (3.3-5.0)
[2023-11-30 04:21] LABS: Alanine Aminotransferase* 73 U/L (4-35); Alkaline Phosphatase* 125 U/L (40-150); Anion Gap 11 mEq/L (7-15); Aspartate Amino Transferase* 65 U/L (12-35); Bilirubin Total* 0.8 mg/dL (0.1-1.5); Blood Urea Nitrogen* 55 mg/dL (7-30); Carbon Dioxide* 18 mmol/L (20-32); Creatinine* 1.5 mg/dL (0.5-1.5); Estimated Glomerular Filt Rate 34 ml/min; Total Protein* 7.1 g/dL (6.0-8.3)
[2023-11-30 04:22] LABS: Calcium* 9.3 mg/dL (8.4-10.6); Glucose* 215 mg/dL (60-115)
[2023-11-30 04:25] LABS: Potassium* 6.4 mmol/L (3.6-5.1); Sodium* 123 mmol/L (135-149)
[2023-11-30 04:33] LABS: Troponin I* 0.03 ng/mL (0.01-0.04)
--- NOTE | 2023-11-30 04:39 | PC.NURSE ---
[employer] RN called for update. update given.
--- NOTE | 2023-11-30 04:40 | W.PM.THH&P_ITS ---
Telehealth- H&P: HPI History of Present Illness Date Seen: 11/30/23 Chief complaint: Altered status Narrative: Shira Stauffer is seen as an Interactive Telehealth visit. Shira Stauffer is a 88 year old male who lives in a long term, DNR/DNI, with history of insulin-dependent diabetes, type IV RTA who has had problems in the past with hyperkalemia and hyponatremia presents tonight from her long term with some increased confusion, decreased responsiveness. Upon questioning, the patient cannot answer any questions currently, cannot provide any meaningful history. She is in no distress. In the emergency department, the patient had a CT of her head to rule out stroke. Basic labs reveals worse than usual hyponatremia, acute hypokalemia of potassium 6.4. In addition, UA is significant for pyuria. The patient will be admitted for management of hypokalemia, hyponatremia, and acute cystitis. Review of Systems Status of ROS: Reports: unobtainable due to mental status [facility] Medical History (Updated 11/30/23 @ 05:41 by Mamadou Cotter MD) Chronic pain ?G89.29 - Other chronic pain (ICD-10) Altered mental status ?R41.82 - Altered mental status, unspecified (ICD-10) Atrial fibrillation ?I48.91 - Unspecified atrial fibrillation (ICD-10) Diabetes mellitus type 1 (12/22/11) ?E10.9 - Type 1 diabetes mellitus without complications (ICD-10) Renal tubular acidosis, type 4 ?N25.89 - Other disorders resulting from impaired renal tubular function (ICD-10) Ileostomy in place ?Z93.2 - Ileostomy status (ICD-10) Unsteady gait ?R26.81 - Unsteadiness on feet (ICD-10) Polypharmacy ?Z79.899 - Other terminal superintendent (current) drug therapy (ICD-10) Osteoporosis ?M81.0 - Age-related osteoporosis without current pathological fracture (ICD- 10) Ketoacidosis due to diabetes mellitus (08/03/13) ?E11.10 - Type 2 diabetes mellitus with ketoacidosis without coma (ICD-10) Irritable bowel syndrome ?K58.9 - Irritable bowel syndrome without diarrhea (ICD-10) Falls (03/31/12) ?W19.XXXA - Unspecified fall, initial encounter (ICD-10) Epistaxis ?R04.0 - Epistaxis (ICD-10) Diverticulitis of large intestine ?K57.32 - Diverticulitis of large intestine without perforation or abscess without bleeding (ICD-10) Diabetic gastroparesis (08/03/13) ?E11.43 - Type 2 diabetes mellitus with diabetic autonomic (poly)neuropathy (ICD-10) ?K31.84 - Gastroparesis (ICD-10) Coronary artery disease ?I25.10 - Atherosclerotic heart disease of [place] coronary artery without angina pectoris (ICD-10) Concussion (03/29/12) ?S06.0XAA - Concussion with loss of consciousness status unknown, initial encounter (ICD-10) Compression fracture of L2 vertebra with delayed healing ?S32.020G - Wedge compression fracture of second lumbar vertebra, subsequent encounter for fracture with delayed healing (ICD-10) Closed head injury ?S09.90XA - Unspecified injury of head, initial encounter (ICD-10) Closed fracture of superior ramus of right pubis ?S32.511A - Fracture of superior rim of right pubis, initial encounter for closed fracture (ICD-10) Closed fracture of left side of symphysis pubis ?S32.592A - Other specified fracture of left pubis, initial encounter for closed fracture (ICD-10) Closed fracture of left inferior pubic ramus ?S32.592A - Other specified fracture of left pubis, initial encounter for closed fracture (ICD-10) Chronic constipation (07/02/13) ?K59.09 - Other constipation (ICD-10) Anxiety disorder ?F41.9 - Anxiety disorder, unspecified (ICD-10) 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 (ICD-10) Seizure ?R56.9 - Unspecified convulsions (ICD-10) Hypothyroidism ?E03.9 - Hypothyroidism, unspecified (ICD-10) Hyponatremia (12/22/11) ?E87.1 - Hypo-osmolality and hyponatremia (ICD-10) Hyperkalemia (12/22/11) ?E87.5 - Hyperkalemia (ICD-10) Gastroesophageal reflux disease ?K21.9 - Gastro-esophageal reflux disease without esophagitis (ICD-10) Chronic pain ?G89.29 - Other chronic pain (ICD-10) Asthma ?J45.909 - Unspecified asthma, uncomplicated (ICD-10) Acute adrenal crisis ?E27.2 - Addisonian crisis (ICD-10) POLST (Physician Orders for Life-Sustaining Treatment) ?Z78.9 - Other specified health status (ICD-10) Health care directive on file ?Z78.9 - Other specified health status (ICD-10) High output ileostomy ?R19.8 - Other specified symptoms and signs involving the digestive system and abdomen (ICD-10) ?Z93.2 - Ileostomy status (ICD-10) Hyperkalemia ?E87.5 - Hyperkalemia (ICD-10) Abnormal liver enzymes ?R74.8 - Abnormal levels of other serum enzymes (ICD-10) Dementia ?F03.90 - Unspecified dementia without behavioral disturbance (ICD-10) Cataract ?H26.9 - Unspecified cataract (ICD-10) Dorsalgia ?M54.9 - Dorsalgia, unspecified (ICD-10) Hyperlipidemia ?E78.5 - Hyperlipidemia, unspecified (ICD-10) Unspecified dementia without behavioral disturbance ?F03.90 - Unspecified dementia without behavioral disturbance (ICD-10) Postmenopausal atrophic vaginitis ?N95.2 - Postmenopausal atrophic vaginitis (ICD-10) Convulsions ?R56.9 - Unspecified convulsions (ICD-10) Pressure ulcer of sacral region, unstageable ?L89.150 - Pressure ulcer of sacral region, unstageable (ICD-10) Constipation ?K59.00 - Constipation, unspecified (ICD-10) Primary hypertension ?I10 - Essential (primary) hypertension (ICD-10) Vertebral fracture Osteoarthritis ?M19.90 - Unspecified osteoarthritis, unspecified site (ICD-10) Chronic kidney disease (CKD) stage G3a/A1, moderately decreased glomerular filtration rate (GFR) between 45-59 mL/min/1.73 square meter and albuminuria creatinine ratio less than 30 mg/g ?N18.31 - Chronic kidney disease, stage 3a (ICD-10) 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 - Atherosclerotic heart disease of [place] coronary artery without angina pectoris (ICD-10) GERD (gastroesophageal reflux disease) ?K21.9 - Gastro-esophageal reflux disease without esophagitis (ICD-10) Anxiety ?F41.9 - Anxiety disorder, unspecified (ICD-10) Pelvic fracture ?S32.9XXA - Fracture of unspecified parts of lumbosacral spine and pelvis, initial encounter for closed fracture (ICD-10) Primary adrenocortical insufficiency ?E27.1 - Primary adrenocortical insufficiency (ICD-10) Diabetes mellitus type 1 ?E10.9 - Type 1 diabetes mellitus without complications (ICD-10) Surgical History S/P small bowel resection ?Z90.49 - Acquired absence of other specified parts of digestive tract (ICD- 10) H/O angioplasty ?Z98.62 - Peripheral vascular angioplasty status (ICD-10) H/O mastoidectomy ?Z90.89 - Acquired absence of other organs (ICD-10) S/P laparoscopic cholecystectomy ?Z90.49 - Acquired absence of other specified parts of digestive tract (ICD- 10) S/P appendectomy ?Z90.49 - Acquired absence of other specified parts of digestive tract (ICD- 10) No significant past surgical history Social History (Updated 09/18/23 @ 22:30 by Adriel Rodriguez MD) Narrative: Patient lives in a long term. Code status DNR DNI What is your current living situation?: I presently have a place to live Problems where you live: no known problems Problems where you live details: none In the past 12 months, utilities in danger of being shut off: no In past 12 months, lack of transportation kept you from medical appts, meetings, work, or getting things needed for daily living: no In the past 12 mos, have been you worried that your food would run out before you had money to buy more?: never true In the past 12 mos, the food you bought just didn't last and you didn't have money to buy more?: never true Highest level of school completed/degree received: Master's degree Smoking Status: Never smoker Do you use any of these nicotine containing products: None Second hand tobacco smoke exposure: No How often do you have a drink containing alcohol: never How often do you have six or more drinks on one occasion: Never AUDIT-C Alcohol total score: 0 Non-prescribed substance use: denies use Caffeine: Yes (diet coke) How often does anyone, including family, friends and others, physically hurt you : never How often does anyone, including family, friends and others, insult or talk down to you: never How often does anyone, including family, friends and others, threaten you with harm: never How often does anyone, including family, friends and others, scream or curse at you: never service: No Meds Home Medications and Allergies Home Medications Medication Instructions Recorded Confirmed Type cholecalciferol (vitamin D3) 50 4,000 unit PO HS 05/02/22 09/19/23 History mcg (2,000 unit) tablet coenzyme Q10 100 mg capsule 100 mg PO HS 05/02/22 09/19/23 History estradiol 0.01% (0.1 mg/gram) 1 appful vaginal .MOTH@HS 05/02/22 09/19/23 History vaginal cream hydrocortisone 5 mg tablet 10 - 15 mg PO BID 05/02/22 09/19/23 History lactobacillus combination no.4 3 3,000 mmu cells PO DAILY 05/02/22 09/19/23 History billion cell capsule (Probiotic) levothyroxine 75 mcg tablet 75 mcg PO DAILY 05/02/22 09/19/23 History multivit-iron 18 mg-folic acid 400 1 tab PO DAILY 05/02/22 09/19/23 History mcg-calcium 500 mg-minerals tablet (Women's One Daily) olopatadine 0.2 % eye drops 1 drp ophthalmic (eye) DAILY 05/02/22 09/19/23 History vitamin B complex (Vitamins B 1 cap PO DAILY 05/02/22 09/19/23 History Complex capsule) acetaminophen 500 mg capsule 1,000 mg PO TID PRN 05/28/22 09/19/23 History ondansetron HCl 4 mg tablet 4 mg PO Q6H PRN 05/28/22 09/19/23 History simethicone 80 mg chewable tablet 80 mg PO TID 05/28/22 09/19/23 History aspirin 81 mg chewable tablet 81 mg PO HS 03/03/23 09/19/23 History glucose 4 gram chewable tablet 4 g PO Q15M PRN 03/03/23 09/19/23 History (Dex4 Glucose) sertraline 50 mg tablet 50 mg PO DAILY 03/03/23 09/19/23 History loperamide 2 mg capsule 4 mg PO BID PRN 03/27/23 09/19/23 History glucagon 1 mg solution for 1 mg IM ONCE PRN 09/19/23 09/19/23 History injection (Glucagon Emergency Kit) insulin aspart U-100 100 unit/mL 5 sliding scale dose subcut 09/19/23 09/19/23 History (3 mL) subcutaneous pen USEASDIRECTD insulin aspart U-100 100 unit/mL 7 - 10 unit subcut TIDWM 09/19/23 09/19/23 History (3 mL) subcutaneous pen nitroglycerin 0.4 mg sublingual 0.4 mg sublingual Q5M PRN 09/19/23 09/19/23 History tablet Allergies Allergy/AdvReac Type Severity Reaction Status Date / Time adhesive tape Allergy Mild Rash Verified 11/30/23 03:03 diclofenac Allergy Unknown Verified 11/30/23 03:03 aspartame Allergy Verified 11/30/23 03:03 beclomethasone Allergy Verified 11/30/23 03:03 bisacodyl Allergy Verified 11/30/23 03:03 dexamethasone Allergy Verified 11/30/23 03:03 doxycycline Allergy Verified 11/30/23 03:03 erythromycin base Allergy Verified 11/30/23 03:03 gabapentin Allergy Verified 11/30/23 03:03 hydrochlorothiazide Allergy Verified 11/30/23 03:03 lactase [From Dairy Aid] Allergy Verified 11/30/23 03:03 meclizine Allergy Verified 11/30/23 03:03 metformin Allergy Verified 11/30/23 03:03 metoclopramide Allergy Verified 11/30/23 03:03 nabumetone [From Relafen] Allergy Verified 11/30/23 03:03 propranolol Allergy Verified 11/30/23 03:03 raloxifene Allergy Verified 11/30/23 03:03 ramipril Allergy Verified 11/30/23 03:03 tobramycin Allergy Verified 11/30/23 03:03 venlafaxine Allergy Verified 11/30/23 03:03 Exam Narrative Exam Narrative: Physical Exam GENERAL: ?vital signs reviewed, elderly frail female, no distress but cannot answer questions HEENT: pupils are equal round and reactive to light, extraocular movements are grossly within normal limits and oral mucosa is moist. NECK: Supple without lymphadenopathy or thyromegaly according to nursing staff examination observation HEART: Regular rate and rhythm without any rubs, murmurs, or gallops. LUNGS: Clear to auscultation bilaterally with good air movement throughout ABDOMEN: Observation from nurse assisted exam, abdomen appears soft, nontender, and nondistended with Positive bowel sounds noted. Ostomy bag with yellow/brown stool in place EXTREMITIES: No edema, chronic old appearing lesions on shins bilaterally SKIN:? Observed warm and dry with color normal Const Vital Signs, click to edit/add: Vital Signs - 24 hr 11/30/23 03:10 11/30/23 03:33 11/30/23 03:34 Temperature 97.7 F Pulse Rate [Left Pulse Oximeter] 75 Respiratory Rate 16 Blood Pressure [Right Upper Arm] 137/76 Pulse Oximetry 94 94 94 11/30/23 03:40 11/30/23 03:50 11/30/23 04:00 Temperature Pulse Rate [Left Pulse Oximeter] Respiratory Rate Blood Pressure [Right Upper Arm] Pulse Oximetry 95 100 94 11/30/23 04:03 Temperature Pulse Rate [Left Pulse Oximeter] Respiratory Rate Blood Pressure [Right Upper Arm] Pulse Oximetry 95 Hospitalist - H&P: Result Labs Labs: Short CBC 11/30/23 Range/Units 03:55 WBC 9.76 (4.50-11.00) K/uL Hgb 14.8 (12.0-16.0) gm/dL Hct 44.8 (33.0-51.0) % Plt Count 228 (140-440) K/uL BMP 11/30/23 03:55 Sodium 123 L* Potassium 6.4 H* Chloride 94 L Carbon Dioxide 18 L BUN 55 H Creatinine 1.5 Glucose 215 H Calcium 9.3 Cardiac Enzymes 11/30/23 Range/Units 03:55 Troponin I 0.03 (0.01-0.04) ng/mL Liver Function 11/30/23 Range/Units 03:55 Total Bilirubin 0.8 (0.1-1.5) mg/dL AST 65 H (12-35) U/L ALT 73 H (4-35) U/L Alkaline Phosphatase 125 (40-150) U/L Albumin 4.4 (3.3-5.0) g/dL Assessment and Plan Assessment and plan (1) Acute cystitis without hematuria: Problem comment: - IV ceftriaxone - monitor cultures - POLST reviewed, abx seems appropriate Status: Acute (2) Hyperkalemia: Problem comment: - Secondary to RTA type 4 - EKG with no concerning changes - potassium 6.4, continue to monitor - Will give dose of lokelma, repeat in AM Status: Acute (3) Weakness: Problem comment: - little reserve given fraility, long standing medical issues -this acute admission: aspiration (from dental procedure?), common bile duct stone (presumed), addisonian crisis. Status: Acute (4) Adult failure to thrive: Problem comment: - back to SNF when electrolytes normalize Status: Acute (5) Renal tubular acidosis, type 4: Problem comment: - Due to adrenal insufficiency. Sodium bicarb increased due to metabolic acidosis - If no improvement can give stress dose steroids Status: Acute (6) Chronic hyponatremia: Problem comment: - Primarily due to adrenal insufficiency. Sodium has been in the low 130s mostly - Sodium 123 today, will give gentle IVFs Status: Acute (7) Frailty syndrome in geriatric patient: Problem comment: - resides in [facility] senior [facility]. Will return there when she is deemed medically stable enough to return. Bed is on hold. Status: Acute (8) Physical deconditioning: Problem comment: - chronic - continue with efforts to try to help her remain is independent she can as long as she can Status: Acute (9) Acute encephalopathy: Problem comment: Likely due to UTI Status: Acute Telehealth: Statement Statement Telehealth Visit: Today's History and Physical is provided via interactive telehealth by Mamadou Cotter MD.? Patient is located at [facility].? Provider is located at [facility].? Nursing staff assisted with the patient's exam. The visit being done today meets criteria for a telehealth visit and the patient or patient?s parent/guardian is aware the visit is a telehealth visit.
--- NOTE | 2023-11-30 04:46 | ED.NURSE ---
daughter poli updated [phone]
[2023-11-30] MEDS: cefTRIAXone 1 GM in 0.9 % SODIUM CHLORIDE Mini-bag 100 ML IVPB (06:12)
[2023-11-30] MEDS: 0.9 % SODIUM CHLORIDE 1000 ml 1,000 ML 75 ML IV (06:12)
--- NOTE | 2023-11-30 07:47 | PC.NURSE ---
Pt arrived on floor @ 0500 11/30/23. Pt unable to respond appropriately or follow commands. Pt responds to all questions with yes. Pt is stiff and has limited ROM. Pt vitals signs are stable. Pt is in bed semi-flower's and has telemetry on showing NSR. Pt had 1 incontinent void in brief, pt changed and repositioned.
[2023-11-30 08:35] LABS: Chloride* 98 mmol/L (96-114)
[2023-11-30 08:38] LABS: Anion Gap 10 mEq/L (7-15); Blood Urea Nitrogen* 51 mg/dL (7-30); Carbon Dioxide* 16 mmol/L (20-32); Creatinine* 1.3 mg/dL (0.5-1.5); Est. Creatinine Clearance* 19.84; Estimated Glomerular Filt Rate 40 ml/min; Glucose* 184 mg/dL (60-115)
[2023-11-30 08:44] LABS: Potassium* 6.5 mmol/L (3.6-5.1); Sodium* 124 mmol/L (135-149)
[2023-11-30 09:17] LABS: Appearance Urine Clear (Clear); Bilirubin Urine Negative (Negative); Blood Urine Trace-intact (Negative); Color Urine Yellow (Yellow); Glucose Urine Negative (Negative); Ketones Urine Negative (Negative); Leukocyte Esterase Urine Trace (Negative); Nitrite Urine Negative (Negative); Protein Urine Trace (Negative); Urobilinogen Urine 0.2 (0.2-1.0); pH Urine 5.5 (5.0-8.5)
[2023-11-30 09:31] LABS: Bacteria Urine Few; Squamous Epithelial Cell Urine Few (None-Few)
[2023-11-30] MEDS: ONDANSETRON 2 MG/ML inj 4 MG IVP (12:19)
[2023-11-30] MEDS: FLUDROCORTISONE ACETATE 0.1 MG TABLET 0.2 MG PO (12:22)
[2023-11-30] MEDS: SODIUM BICARBONATE 650 MG TABLET 1300 MG PO ×2 (12:27→18:06)
[2023-11-30] MEDS: SODIUM ZIRCONIUM CYCLOSILICATE 10 GM PO ×2 (12:36→21:19)
[2023-11-30] MEDS: HYDROCORTISONE 10 MG TABLET 15 MG PO (12:36)
[2023-11-30 13:28] LABS: pH VBG 7.287 (7.32-7.43)
[2023-11-30 13:29] LABS: HCO3 VBG 24 mmol/L (21-28); PCO2 VBG 51 mmHG (40-50); PO2 VBG 23.9 mmHG (25-47)
[2023-11-30] MEDS: HYDROCORTISONE SOD SUCCINATE 50 MG/ML inj IVP ×2 (13:53→17:03)
[2023-11-30 14:07] LABS: Ammonia* < 9.0 umol/L (13.1-30.0)
[2023-11-30 14:09] LABS: Lab Add On Test New Spec Needed
--- NOTE | 2023-11-30 15:29 | P.IMPN_ITS ---
Progress Note: A&P Assessment and plan (1) Hyperkalemia: Problem details: - Secondary to RTA type 4 - EKG with no concerning changes - potassium 6.4 on admission - 6.5 following 1st dose Lokelma - 2nd peripheral IV secured. Continue IV hydration. IV hydrocortisone 50 mg q.6 hours x4 doses ordered. Monitor mental status and ability to take oral medications. Was able to safely take 2nd dose of Lokelma, sodium bicarb, oral cortisone. 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 Sodium bicarb increased due to metabolic acidosis - VBG pH 7.287, pCO2 51, HC03 24, metabolic acidosis - continue home fludrocortisone, sodium bicarbonate, hydrocortisone - IV hydrocortisone 50 mg q.6 hours x4 doses ordered. Second peripheral IV access obtained - initially concerned patient unable to take orals however did take oral doses of fludrocortisone, hydrocortisone, sodium bicarb, 2nd dose Lokelma today - continue close monitoring, need to avoid adrenal crisis Status: Chronic (3) Chronic hyponatremia: Problem details: - Primarily due to adrenal insufficiency. History of high ostomy output. Sodium has been in the low 130s mostly - Sodium 123 today, will give gentle IVFs, appropriately improved to 124 since admission, continue to monitor with gentle IV hydration - fluid restriction Status: Acute (4) Acute encephalopathy: Problem details: -acute on chronic recurrent per history -not likely urine source, UC pending, ammonia negative, TSH 6.89 (previously >8), BC x2 ordered, CT head unremarkable for acute findings, afebrile Status: Acute (5) Adult failure to thrive: Problem details: - back to SNF when electrolytes normalize - PT OT consults - need to discuss goals of care with family, social worker clinical, therapies Status: Acute (6) Frailty syndrome in geriatric patient: Problem details: - resides in [facility] snf facility. Will return there when she is deemed medically stable enough to return. Bed is on hold. Status: Acute (7) Physical deconditioning: Problem details: - chronic - continue with efforts to try to help her remain is independent she can as long as she can - PT/OT when able Status: Acute (8) Diabetes mellitus type 1: Problem details: -A1c ordered -usual dose glargine 6 units, will start with 3 units at at bedtime -diabetic diet when able, glucose checks ACHS, insulin sliding scale Status: Chronic (9) Atrial fibrillation: Problem details: -not currently on rate control or anticoagulation -transthoracic echocardiogram 09/18/2023: Normal LV chamber size, normal wall thickness, hyperdynamic systolic function, EF 81%. Mild left atrial enlargement. Mild to moderate tricuspid regurgitation. Status: Acute (10) Hypothyroidism: Problem details: -resume levothyroxine when improved mental status Status: Chronic (11) Acute cystitis without hematuria: Problem details: Suspected though admitting colleague likely reviewed previous UA as current UA from today's date essentially without significant findings. UC pending. Will defer further antibiotics at this time Status: Acute Plan As above continue current management acidosis, electrolyte abnormality, close monitoring. Plan to return to [facility] when stable Plan to resume all oral medications when improve mental status, currently minimize to sodium bicarb and oral cortisones Time Spent With Patient Total time spent: Total time spent caring for the patient today was 60 minutes. This includes time spent for the visit reviewing the chart, time spent during the visit, time spent after the visit and documentation and planning in coordination of care. Subjective Date Seen: 11/30/23 Interval history: Patient is sleeping this morning, easily woken but falls back asleep. When asked if she has any pain, nods yes to headache, shakes head no to chest pain or abdominal pain. Has remained afebrile. No report of nausea vomiting. History of high ostomy output. Patient currently remains a poor historian. Per ED records, patient was brought to ED for change in mental status. Well known to this service. No events reported overnight. Concern for fragile IV in place and decreased cognitive status to safely take oral medications. Currently holding oral medications other than sodium bicarb and cortisones given decreased mental status. Exam Narrative: Exam Narrative: PHYSICAL EXAM General: Frail elderly female HEENT: Normocephalic, atraumatic, sclera white, EOMI, oral mucosa dry Cardiovascular: RRR, S1S2. Pulmonary: Diminished, without respiratory effort. No dyspnea Abdominal: Soft, nondistended, NTTP Neurological: Decreased mental status, yes and no answers with head movement Extremities: PROM intact distal upper extremities. Resistive to range of motion lower extremities and shoulders. Neurovascularly intact Skin: Warm, dry. Const: Vital Signs, click to edit/add: Vital Signs - 24 hr 11/30/23 03:10 11/30/23 03:33 11/30/23 03:34 Temperature 97.7 F Pulse Rate Pulse Rate [Left P ulse Oximeter] 75 Pulse Rate [Pulse Oximeter] Respiratory Rate 16 Blood Pressure Blood Pressure [Le ft Arm] Blood Pressure [Ri ght Upper Arm] 137/76 Pulse Oximetry 94 94 94 Oxygen Delivery [facility] 11/30/23 03:40 11/30/23 03:45 11/30/23 03:50 Temperature Pulse Rate 50 L Pulse Rate [Left P ulse Oximeter] Pulse Rate [Pulse Oximeter] Respiratory Rate Blood Pressure Blood Pressure [Le ft Arm] Blood Pressure [Ri ght Upper Arm] Pulse Oximetry 95 96 100 Oxygen Delivery [facility] 11/30/23 04:00 11/30/23 04:03 11/30/23 04:15 Temperature Pulse Rate 50 L Pulse Rate [Left P ulse Oximeter] Pulse Rate [Pulse Oximeter] Respiratory Rate Blood Pressure Blood Pressure [Le ft Arm] Blood Pressure [Ri ght Upper Arm] Pulse Oximetry 94 95 97 [facility] 11/30/23 04:17 11/30/23 04:30 11/30/23 04:32 Temperature Pulse Rate 50 L 52 L 58 L Pulse Rate [Left P ulse Oximeter] Pulse Rate [Pulse Oximeter] Respiratory Rate Blood Pressure 122/54 L 148/69 H Blood Pressure [Le ft Arm] Blood Pressure [Ri ght Upper Arm] Pulse Oximetry 97 97 98 [facility] 11/30/23 04:45 11/30/23 04:47 11/30/23 05:16 Temperature Pulse Rate 52 L 58 L 77 Pulse Rate [Left P ulse Oximeter] Pulse Rate [Pulse Oximeter] Respiratory Rate Blood Pressure 137/58 L Blood Pressure [Le ft Arm] Blood Pressure [Ri ght Upper Arm] Pulse Oximetry 96 98 [facility] 11/30/23 05:54 11/30/23 05:54 11/30/23 07:36 Temperature 98.3 F 97.5 F L Pulse Rate Pulse Rate [Left P ulse Oximeter] Pulse Rate [Pulse Oximeter] 81 Respiratory Rate 14 14 16 Blood Pressure Blood Pressure [Le ft Arm] 155/85 H Blood Pressure [Ri ght Upper Arm] Pulse Oximetry 97 97 90 Oxygen Delivery Me thod Room Air Room Air Room Air 11/30/23 11:00 Temperature 98.7 F Pulse Rate Pulse Rate [Left P ulse Oximeter] Pulse Rate [Pulse Oximeter] 86 Respiratory Rate 16 Blood Pressure Blood Pressure [Le ft Arm] 134/67 Blood Pressure [Ri ght Upper Arm] Pulse Oximetry 94 Oxygen Delivery Me thod Room Air Labs Labs: Laboratory Results - last 24 hr 11/30/23 11/30/23 11/30/23 03:55 08:10 09:03 WBC 9.76 RBC 5.07 Hgb 14.8 Hct 44.8 MCV 88 MCH 29 MCHC 33 RDW Coeff of Sharmaine 14.5 Plt Count 228 Neut % (Auto) 56.2 Lymph % (Auto) 29.6 [place] % (Auto) 10.8 Eos % (Auto) 2.4 Baso % (Auto) 0.4 Neut # (Auto) 5.49 Lymph # (Auto) 2.89 [place] # (Auto) 1.10 H Eos # (Auto) 0.23 Baso # (Auto) 0.04 Abs Immat Gran (auto) 0.06 Imm/Tot Granulo (auto) 0.6 VBG pH VBG pCO2 VBG pO2 VBG HCO3 Sodium 123 L* 124 L* Potassium 6.4 H* 6.5 H* Chloride 94 L 98 Carbon Dioxide 18 L 16 L Anion Gap 11 10 BUN 55 H 51 H Creatinine 1.5 1.3 Estimated Creat Clear 19.84 Estimated GFR 34 40 Glucose 215 H 184 H Lactate 4.0 H Calcium 9.3 9.0 Total Bilirubin 0.8 AST 65 H ALT 73 H Alkaline Phosphatase 125 Ammonia Troponin I 0.03 Total Protein 7.1 Albumin 4.4 TSH Urine Color Yellow Urine Appearance Clear Urine pH 5.5 Ur Specific [place] 1.020 Urine Protein Trace A Urine Glucose (UA) Negative Urine Ketones Negative Urine Blood Trace-intact A Urine Nitrite Negative Urine Bilirubin Negative Urine Urobilinogen 0.2 Ur Leukocyte Esterase Trace A Urine RBC 5-10 A Urine WBC 2-5 Ur Squamous Epith Cells Few Urine Bacteria Few A Urine Yeast Few A Lab Acknowledgement 11/30/23 11/30/23 11:34 13:10 WBC RBC Hgb Hct MCV MCH MCHC RDW Coeff of [place]armaine Plt Count Neut % (Auto) Lymph % (Auto) [place] % (Auto) Eos % (Auto) Baso % (Auto) Neut # (Auto) Lymph # (Auto) [place] # (Auto) Eos # (Auto) Baso # (Auto) Abs Immat Gran (auto) Imm/Tot Granulo (auto) VBG pH 7.287 L VBG pCO2 51 H VBG pO2 23.9 L VBG HCO3 24 Sodium Potassium Chloride Carbon Dioxide Anion Gap BUN Creatinine Estimated Creat Clear Estimated GFR Glucose Lactate Calcium Total Bilirubin AST ALT Alkaline Phosphatase Ammonia < 9.0 L Troponin I Total Protein Albumin TSH 6.890 H Urine Color Urine Appearance Urine pH Ur Specific [place] Urine Protein Urine Glucose (UA) Urine Ketones Urine Blood Urine Nitrite Urine Bilirubin Urine Urobilinogen Ur Leukocyte Esterase Urine RBC Urine WBC Ur Squamous Epith Cells Urine Bacteria Urine Yeast Lab Acknowledgement New Spec Needed
[2023-11-30 17:58] LABS: Potassium* 5.9 mmol/L (3.6-5.1)
[2023-11-30 18:05] LABS: Sodium* 124 mmol/L (135-149)
[2023-11-30] MEDS: INSULIN ASPART 100 UNIT/ML SUBCUT ×2 (18:06→21:55)
[2023-11-30] MEDS: HYDROCORTISONE 10 MG TABLET PO (18:47)
--- NOTE | 2023-11-30 19:54 | PC.NURSE ---
Shift note: Pt exhibited decreased LOC most of the day, able to wake with voice or firm touch but answering only yes/no to questions before falling asleep once again. VS WNL and LS COA. she has been afebrile. Straight cathed for UA this morning and UC pending. Reddened bony prominences on spine and coccyx, mepilex applied. Pt has tolerated PO intake and whole pills with applesauce but has needed maximum assistance with meals. Poor appetite, eating only a few bites with each tray. Denies pain. NP=[id number], SS novolog given. Ostomy has high output of oily, dark green liquid.
[2023-11-30] MEDS: ENOXAPARIN 30 MG/0.3ML INJ SUBCUT (21:16)
[2023-11-30] MEDS: 0.9 % SODIUM CHLORIDE 1000 ml 1,000 ML 50 ML IV (21:16)
[2023-12-01] VITALS (8 sets, daily range): BP systolic 95–112; BP diastolic 55–64; PULSE 68–97; RESP 16–24; TEMP 36.4–37.2; O2SAT 91–97; BMI 17.4
[2023-12-01 00:40] LABS: Chloride* 102 mmol/L (96-114)
[2023-12-01 00:41] LABS: Potassium* 5.5 mmol/L (3.6-5.1); Sodium* 127 mmol/L (135-149)
[2023-12-01] MEDS: HYDROCORTISONE SOD SUCCINATE 50 MG/ML inj IVP ×2 (00:41→06:38)
[2023-12-01 00:43] LABS: Creatinine* 1.1 mg/dL (0.5-1.5); Est. Creatinine Clearance* 23.45; Estimated Glomerular Filt Rate 49 ml/min
[2023-12-01 00:44] LABS: Anion Gap 9 mEq/L (7-15); Blood Urea Nitrogen* 37 mg/dL (7-30); Calcium* 8.5 mg/dL (8.4-10.6); Carbon Dioxide* 16 mmol/L (20-32); Glucose* 228 mg/dL (60-115)
[2023-12-01 03:34] LABS: Hemoglobin A1C* 8.7 % (0-5.6)
[2023-12-01 06:38] LABS: HCO3 VBG 19 mmol/L (21-28); PCO2 VBG 33 mmHG (40-50); PO2 VBG 83.9 mmHG (25-47); pH VBG 7.377 (7.32-7.43)
[2023-12-01 06:56] LABS: Hematocrit 38.6 % (33.0-51.0); Hemoglobin* 12.6 gm/dL (12.0-16.0); Mean Corpuscular HGB Conc 33 gm/dL (32-36); Mean Corpuscular Hemoglobin 29 pg (26-34); Mean Corpuscular Volume 88 fL (80-100); Platelet Count* 207 K/uL (140-440); Red Blood Count 4.38 m/uL (4.00-5.20); White Blood Count* 11.93 K/uL (4.50-11.00)
[2023-12-01 06:57] LABS: Slide Review Reflex No
[2023-12-01 07:04] LABS: Chloride* 106 mmol/L (96-114); Sodium* 128 mmol/L (135-149)
[2023-12-01 07:07] LABS: Anion Gap 7 mEq/L (7-15); Blood Urea Nitrogen* 34 mg/dL (7-30); Carbon Dioxide* 15 mmol/L (20-32); Creatinine* 1.1 mg/dL (0.5-1.5); Est. Creatinine Clearance* 25.02; Estimated Glomerular Filt Rate 49 ml/min; Potassium* 5.6 mmol/L (3.6-5.1)
[2023-12-01 07:08] LABS: Calcium* 8.2 mg/dL (8.4-10.6); Glucose* 181 mg/dL (60-115); Magnesium* 2.1 mg/dL (1.5-2.6)
--- NOTE | 2023-12-01 07:08 | PC.NURSE ---
Pt alert and oriented to self only. Pt says few words but responds?to yes and no questions. Pt wakes up to name and/or touch. Pt denies pain, chest pain, and N/V. Pt was turned and repositioned throughout night. Pt had one soaked brief overnight. Pt slept intermittently throughout night. ?
[2023-12-01 07:26] LABS: Lactate* 2.7 mmol/L (0.5-1.9)
[2023-12-01] MEDS: INSULIN ASPART 100 UNIT/ML SUBCUT ×4 (09:03→21:05)
[2023-12-01] MEDS: SODIUM BICARBONATE 650 MG TABLET 1300 MG PO ×3 (09:04→17:51)
[2023-12-01] MEDS: FLUDROCORTISONE ACETATE 0.1 MG TABLET 0.2 MG PO (09:04)
[2023-12-01] MEDS: HYDROCORTISONE 10 MG TABLET 15 MG PO ×2 (09:07→21:19)
--- NOTE | 2023-12-01 09:07 | PM.IMPN1 ---
Progress Note: A&P Assessment and plan (1) Hyperkalemia: Problem details: - Secondary to RTA type 4 - K6.4 on admission with no concerning EKG changes, has received Lokelma x3 with K down to 5.6 on 12/01 - continue Lokelma (can take TID for 48 hours); forego aggressive treatment of hyperkalemia with insulin/glucose at this time given reassuring EKG and goals of care * per POLST, indicates only basic interventions that would make her more comfortable and no aggressive life-sustaining interventions Status: Acute (2) Renal tubular acidosis, type 4: Problem details: - Due to adrenal insufficiency - VBG on admission: pH 7.287, pCO2 51, HC03 24 - continue home fludrocortisone, sodium bicarbonate, hydrocortisone - received IV hydrocortisone 50 mg Q6h x4 upon admission, back to home oral dosing on 12/01 - continue close monitoring, need to avoid adrenal crisis - hypotensive on 12/01 (although had not been taking po prior to this): will give gentle IVF bolus given elevated lactate, restart po intake, monitor VS and labs closely Status: Chronic (3) Chronic hyponatremia: Problem details: - Primarily due to adrenal insufficiency. History of high ostomy output. Baseline Na low 130s - fluid restriction, restart supplemental sodium tabs on 12/01 Status: Acute (4) Acute encephalopathy: Problem details: - acute on chronic recurrent per history - not likely urine source, UC pending, ammonia negative, TSH 6.89 (previously >8), BC x2 ordered, CT head unremarkable for acute findings, afebrile Status: Acute (5) Adult failure to thrive: Problem details: - back to SNF when electrolytes normalize - PT OT consults - need to discuss goals of care with family, medical social consultant, therapies Status: Acute (6) Frailty syndrome in geriatric patient: Problem details: - resides in [facility] half-way facility. Will return there when she is deemed medically stable enough to return. Bed is on hold. Status: Acute (7) Physical deconditioning: Problem details: - chronic - continue with efforts to try to help her remain is independent she can as long as she can - PT/OT when able Status: Acute (8) Diabetes mellitus type 1: Problem details: - A1c 8.4, blood sugars have been variable - continue home insulin dosing with SSI Status: Chronic (9) Atrial fibrillation: Problem details: - not currently on rate control or anticoagulation (SR at this time) - transthoracic echocardiogram 09/18/2023: Normal LV chamber size, normal wall thickness, hyperdynamic systolic function, EF 81%. Mild left atrial enlargement. Mild to moderate tricuspid regurgitation. 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: Problem details: - liquid stool noted on 12/01; will restart home therapies (probiotic/morphine/loperamide/psyllium/diphenoxylate-atropine) Status: Chronic (13) Low body weight due to inadequate caloric intake: Problem details: - severe protein-calorie malnutrition as evidenced by BMI 17, poor BG control, electrolyte abnormalities Status: Acute Plan - per above (bolus, repeat Lokelma) - close monitoring of electrolytes - return to [facility] when medically stable Subjective Date Seen: 12/01/23 Interval history: Shira was admitted to the hospital on 11/30 for AMS, noted to have hyperkalemia and hyponatremia on admission. Comorbidities include adrenal insufficiency, RTA 4, Type 1 DM, high output ileostomy, chronic severe protein-calorie malnutrition. Since admission, patient has woken up, is tolerating po intake. Ready to restart home medications. Over the past 24 hours, BG has been variable: 81-346. She notes moderate abdominal discomfort (chronic, unchanged). No other concerns for hospitalist team. Exam Narrative: Exam Narrative: GEN: Alert in laying comfortably in bed, nontoxic but does appear chronically ill HEENT: EOMIs bilaterally, no scleral icterus CV: RRR (not in AFib during my exam), early systolic murmur heard best at left sternal border without radiation R: LCTA bilaterally without concerning wheezing, rales, or rhonchi Ab: soft, tolerates palpation, dark liquid stool noted in ostomy Ext: wwp, thin Skin: Scattered bruising of lower extremities, no other concerning skin lesions noted on exposed skin Neuro: No focal deficits Psych: Appropriate Const: Vital Signs, click to edit/add: Vital Signs - 24 hr 11/30/23 11:00 11/30/23 15:00 11/30/23 15:00 Temperature 98.7 F 97.6 F Pulse Rate Pulse Rate [Pulse Oximeter] 86 86 91 Respiratory Rate 16 16 16 Blood Pressure [Le ft Arm] 134/67 122/62 Pulse Oximetry 94 94 Oxygen Delivery Me thod Room Air Room Air 11/30/23 20:27 11/30/23 22:00 11/30/23 23:05 Temperature 98.9 F 98.1 F Pulse Rate 92 Pulse Rate [Pulse Oximeter] 83 82 Respiratory Rate 16 18 Blood Pressure [Le ft Arm] 136/71 99/60 Pulse Oximetry 95 92 Oxygen Delivery Me thod Room Air Room Air 12/01/23 00:40 12/01/23 07:00 12/01/23 07:00 Temperature 98.1 F Pulse Rate 76 Pulse Rate [Pulse Oximeter] 88 79 Respiratory Rate 18 20 Blood Pressure [Le ft Arm] 112/62 Pulse Oximetry 91 Oxygen Delivery Me thod Room Air 12/01/23 07:48 Temperature 98.8 F Pulse Rate Pulse Rate [Pulse Oximeter] 79 Respiratory Rate 24 Blood Pressure [Le ft Arm] 99/64 Pulse Oximetry 95 Oxygen Delivery Me thod Room Air Labs Labs: Laboratory Results - last 24 hr 11/30/23 11/30/23 11/30/23 09:03 11:34 13:10 WBC RBC Hgb Hct MCV MCH MCHC Plt Count VBG pH 7.287 L VBG pCO2 51 H VBG pO2 23.9 L VBG HCO3 24 Sodium Potassium Chloride Carbon Dioxide Anion Gap BUN Creatinine Estimated Creat Clear Estimated GFR Glucose Hemoglobin A1c Lactate Calcium Magnesium Ammonia < 9.0 L TSH 6.890 H Urine Color Yellow Urine Appearance Clear Urine pH 5.5 Ur Specific [place] 1.020 Urine Protein Trace A Urine Glucose (UA) Negative Urine Ketones Negative Urine Blood Trace-intact A Urine Nitrite Negative Urine Bilirubin Negative Urine Urobilinogen 0.2 Ur Leukocyte Esterase Trace A Urine RBC 5-10 A Urine WBC 2-5 Ur Squamous Epith Cells Few Urine Bacteria Few A Urine Yeast Few A Lab Acknowledgement New Spec Needed 11/30/23 12/01/23 12/01/23 17:24 00:25 06:13 WBC 11.93 H RBC 4.38 Hgb 12.6 Hct 38.6 MCV 88 MCH 29 MCHC 33 Plt Count 207 VBG pH 7.377 VBG pCO2 33 L VBG pO2 83.9 H VBG HCO3 19 L Sodium 124 L* 127 L 128 L Potassium 5.9 H 5.5 H 5.6 H Chloride 102 106 Carbon Dioxide 16 L 15 L Anion Gap 9 7 BUN 37 H 34 H Creatinine 1.1 1.1 Estimated Creat Clear 23.45 25.02 Estimated GFR 49 49 Glucose 228 H 181 H Hemoglobin A1c 8.7 H Lactate 2.0 H 2.7 H Calcium 8.5 8.2 L Magnesium 2.1 Ammonia TSH Urine Color Urine Appearance Urine pH Ur Specific [place] Urine Protein Urine Glucose (UA) Urine Ketones Urine Blood Urine Nitrite Urine Bilirubin Urine Urobilinogen Ur Leukocyte Esterase Urine RBC Urine WBC Ur Squamous Epith Cells Urine Bacteria Urine Yeast Lab Acknowledgement 12/01/23 07:20 WBC RBC Hgb Hct MCV MCH MCHC Plt Count VBG pH VBG pCO2 VBG pO2 VBG HCO3 Sodium Potassium Chloride Carbon Dioxide Anion Gap BUN Creatinine Estimated Creat Clear Estimated GFR Glucose Hemoglobin A1c Lactate Calcium Magnesium Ammonia TSH Urine Color Urine Appearance Urine pH Ur Specific [place] Urine Protein Urine Glucose (UA) Urine Ketones Urine Blood Urine Nitrite Urine Bilirubin Urine Urobilinogen Ur Leukocyte Esterase Urine RBC Urine WBC Ur Squamous Epith Cells Urine Bacteria Urine Yeast Lab Acknowledgement Test Added
[2023-12-01] MEDS: SODIUM CHLORIDE 0.9 % (FLUSH) 10 ML SYRINGE 5 ML IVF ×2 (09:08→21:12)
[2023-12-01] MEDS: SODIUM ZIRCONIUM CYCLOSILICATE 10 GM PO (10:07)
[2023-12-01] MEDS: 0.9 % SODIUM CHLORIDE 500 ML 500 ML IV (10:07)
[2023-12-01] MEDS: LEVOTHYROXINE 75 MCG TABLET PO (10:21)
[2023-12-01] MEDS: PSYLLIUM HUSK (WITH SUGAR) 12 GM PACKET PO ×3 (10:22→17:52)
[2023-12-01] MEDS: SERTRALINE 50 MG TABLET PO (10:22)
[2023-12-01] MEDS: SODIUM CHLORIDE 1 GM TABLET PO ×3 (10:22→17:51)
--- NOTE | 2023-12-01 12:01 | PC.SOCIAL ---
Discharge planning: Called [facility] admissions nurse, Matilda, who confirmed pt is on a bed hold at the [facility] and can return when ready for discharge.
[2023-12-01] MEDS: INSULIN ASPART 100 UNIT/ML 7 UNIT SUBCUT (12:14)
[2023-12-01] MEDS: HYDROCORTISONE 10 MG TABLET PO (12:15)
[2023-12-01 16:23] LABS: Lactate* 3.9 mmol/L (0.5-1.9)
[2023-12-01 17:05] LABS: Chloride* 104 mmol/L (96-114); Potassium* 4.8 mmol/L (3.6-5.1); Sodium* 131 mmol/L (135-149)
[2023-12-01 17:08] LABS: Anion Gap 9 mEq/L (7-15); Carbon Dioxide* 18 mmol/L (20-32); Creatinine* 1.1 mg/dL (0.5-1.5); Est. Creatinine Clearance* 25.02; Estimated Glomerular Filt Rate 49 ml/min
[2023-12-01 17:09] LABS: Blood Urea Nitrogen* 36 mg/dL (7-30); Calcium* 8.4 mg/dL (8.4-10.6); Glucose* 246 mg/dL (60-115)
[2023-12-01] MEDS: INSULIN ASPART 100 UNIT/ML 8 UNIT SUBCUT (17:52)
[2023-12-01] MEDS: ENOXAPARIN 30 MG/0.3ML INJ SUBCUT (21:18)
--- NOTE | 2023-12-01 22:42 | PC.NURSE ---
Patient alert to self during the day. Would only answer yes/no questions after prompting. Patient more alert and talkative by end of the shift. Fluid restriction still in place for patient. Left IV pulled out by patient. Repeat labs drawn. Patient ambulating with Ax1, GB and walker. Nursing to continue to monitor and assess. ?
[2023-12-02 03:00] VITALS: BP 108/62; PULSE 64; RESP 16; TEMP 36.7; O2SAT 97
[2023-12-02 06:39] LABS: Hematocrit 33.6 % (33.0-51.0); Hemoglobin* 11.1 gm/dL (12.0-16.0); Mean Corpuscular HGB Conc 33 gm/dL (32-36); Mean Corpuscular Hemoglobin 30 pg (26-34); Mean Corpuscular Volume 90 fL (80-100); Platelet Count* 209 K/uL (140-440); Red Blood Count 3.74 m/uL (4.00-5.20); White Blood Count* 7.84 K/uL (4.50-11.00)
[2023-12-02 06:42] LABS: Slide Review Reflex No
[2023-12-02 07:00] VITALS: BP 127/91; PULSE 67; PULSE 72; RESP 18; TEMP 36.8; O2SAT 99
[2023-12-02] MEDS: LEVOTHYROXINE 75 MCG TABLET PO (07:01)
[2023-12-02 07:22] LABS: Chloride* 107 mmol/L (96-114); Potassium* 4.7 mmol/L (3.6-5.1); Sodium* 130 mmol/L (135-149)
[2023-12-02 07:25] LABS: Anion Gap 6 mEq/L (7-15); Blood Urea Nitrogen* 36 mg/dL (7-30); Carbon Dioxide* 17 mmol/L (20-32); Creatinine* 0.9 mg/dL (0.5-1.5); Est. Creatinine Clearance* 27.52; Estimated Glomerular Filt Rate 62 ml/min
[2023-12-02 07:26] LABS: Calcium* 8.4 mg/dL (8.4-10.6); Glucose* 173 mg/dL (60-115)
--- NOTE | 2023-12-02 07:32 | PC.NURSE ---
Shift note: No complains during this shift, colostomy bag changed ones due to leaking.
[2023-12-02] MEDS: SODIUM CHLORIDE 0.9 % (FLUSH) 10 ML SYRINGE 5 ML IVF (08:19)
[2023-12-02] MEDS: SERTRALINE 50 MG TABLET PO (08:20)
[2023-12-02] MEDS: PSYLLIUM HUSK (WITH SUGAR) 12 GM PACKET PO (08:20)
[2023-12-02] MEDS: SODIUM CHLORIDE 1 GM TABLET PO (08:20)
[2023-12-02] MEDS: SODIUM BICARBONATE 650 MG TABLET 1300 MG PO (08:20)
[2023-12-02] MEDS: INSULIN ASPART 100 UNIT/ML SUBCUT (08:22)
[2023-12-02] MEDS: FLUDROCORTISONE ACETATE 0.1 MG TABLET 0.2 MG PO (09:55)
[2023-12-02] MEDS: HYDROCORTISONE 10 MG TABLET 15 MG PO (09:56)
[2023-12-02] MEDS: INSULIN ASPART 100 UNIT/ML 10 UNIT SUBCUT (09:59)
--- NOTE | 2023-12-02 10:17 | P.DS_ITS ---
DS: Providers Provider Date Seen: 12/02/23 Date of admission: 11/30/23 06:44 Primary care physician: Onur Schreiber MD Admitting Clinician: Mamadou Cotter MD Consults: OT, PT Attending Physician on discharge: Mamadou Cotter MD Date of Discharge: 12/02/23 DS: Diagnosis Discharge Diagnosis (1) Hyperkalemia: Status: Acute Problem details: - Secondary to RTA type 4 - K6.4 on admission with no concerning EKG changes, has received Lokelma x3 with K down to 5.6 on 12/01 - continue Lokelma (can take TID for 48 hours); forego aggressive treatment of hyperkalemia with insulin/glucose at this time given reassuring EKG and goals of care * per POLST, indicates only basic interventions that would make her more comfortable and no aggressive life-sustaining interventions (2) Renal tubular acidosis, type 4: Status: Chronic Problem details: - Due to adrenal insufficiency - VBG on admission: pH 7.287, pCO2 51, HC03 24 - continue home fludrocortisone, sodium bicarbonate, hydrocortisone - received IV hydrocortisone 50 mg Q6h x4 upon admission, back to home oral dosing on 12/01 - hypotension and electrolyte abnormalities fully resolved on 12/02 (3) Chronic hyponatremia: Status: Acute Problem details: - Primarily due to adrenal insufficiency. History of high ostomy output. Baseline Na low 130s - fluid restriction, restart supplemental sodium tabs on 12/01 (4) Acute encephalopathy: Status: Acute Problem details: - acute on chronic recurrent per history, fully cleared during stay - UCx negative, ammonia negative, TSH 6.89 (previously >8), BC x2 negative, CT head unremarkable for acute findings, afebrile (5) Frailty syndrome in geriatric patient: Status: Acute Problem details: - resides in [facility] alf facility. Will return there when she is deemed medically stable enough to return. Bed is on hold. (6) Physical deconditioning: Status: Acute Problem details: - chronic - continue with efforts to try to help her remain is independent she can as long as she can - PT/OT when able (7) Diabetes mellitus type 1: Status: Chronic Problem details: - A1c 8.4, blood sugars have been variable - continue home insulin dosing with SSI (8) Atrial fibrillation: Status: Acute Problem details: - not currently on rate control or anticoagulation (SR during stay) - transthoracic echocardiogram 09/18/2023: Normal LV chamber size, normal wall thickness, hyperdynamic systolic function, EF 81%. Mild left atrial enlargement. Mild to moderate tricuspid regurgitation. (9) Hypothyroidism: Status: Chronic Problem details: - resume levothyroxine on 12/01, TSH in 6 range (age appropriate) (10) Acute cystitis without hematuria: Status: Acute Problem details: - no growth on UCx, received Ceftriaxone on admission, this was discontinued during stay. 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 Problem details: - liquid stool noted during stay (likely 2/2 missing home medications during somnolence) - restarted home medications on 12/01 (probiotic/morphine/loperamide/psyllium/diphenoxylate-atropine); still having liquid stool on d/c but volume decreasing (12) Low body weight due to inadequate caloric intake: Status: Acute Problem details: - severe protein-calorie malnutrition as evidenced by BMI 17, poor BG control, electrolyte abnormalities DS: Summary Hospital Course Hospital Course: Shira is a patient with multiple medical comorbidities as noted above, who presented to the hospital for somnolence. She was found to have hyperkalemia and hyponatremia, likely related to her RTA and history of primary adrenocortical insufficiency. No evidence of bacterial infection noted. She was treated with high-dose IV steroids x 24 hours + electrolyte replacement, and improved to baseline during stay. On hospital day 1, home medications were restarted. She was noted to have mildly elevated output from her ostomy (likely related to NPO status for 1 day given somnolence); after restarting home medications, her ostomy output was noted to decrease upon discharge. Shira was awake and alert and at baseline physically on hospital day 2, requesting discharge home to [facility]. Repeat BMP later this week Status at Discharge Overall status at discharge: patient is progressing back to baseline Time Spent with Patient Time attestation: Total time spent providing and/or coordinating discharge services: Time spent: Greater than 30 minutes Specific discharge activities: Medication reconciliation, review of results and plan of care Exam Narrative: Exam Narrative: GEN: Alert and sitting comfortably in bedside chair, just finishing breakfast when I see her HEENT: EOMIs bilaterally, no scleral icterus CV: RRR, No concerning murmurs R: LCTA bilaterally without concerning wheezing, air movement adequate Ext: thin Skin: Scattered bruising on extremities, unchanged Psych: Baseline Const: Vital Signs, click to edit/add: Vital Signs - 24 hr 12/01/23 11:00 12/01/23 15:00 12/01/23 15:00 Temperature 98.3 F 97.6 F Pulse Rate 85 Pulse Rate [Apical ] Pulse Rate [Pulse Oximeter] 97 89 Respiratory Rate 20 20 Blood Pressure [Le ft Arm] 99/64 Blood Pressure [Ri ght Arm] 109/55 L 105/59 L Pulse Oximetry 93 94 Oxygen Delivery Me thod Room Air Room Air 12/01/23 15:00 12/01/23 19:00 12/01/23 23:00 Temperature 99.0 F Pulse Rate Pulse Rate [Apical ] Pulse Rate [Pulse Oximeter] 89 85 68 Respiratory Rate 20 16 16 Blood Pressure [Le ft Arm] 99/64 Blood Pressure [Ri ght Arm] 95/59 L Pulse Oximetry 92 Oxygen Delivery Me thod Room Air 12/01/23 23:00 12/01/23 23:26 12/02/23 03:00 Temperature 97.6 F 98.1 F Pulse Rate 77 Pulse Rate [Apical ] 64 Pulse Rate [Pulse Oximeter] 68 64 Respiratory Rate 16 16 Blood Pressure [Le ft Arm] Blood Pressure [Ri ght Arm] 103/55 L 108/62 Pulse Oximetry [address] thod Room Air Room Air 12/02/23 07:00 12/02/23 07:00 12/02/23 07:00 Temperature 98.3 F Pulse Rate 67 Pulse Rate [Apical ] Pulse Rate [Pulse Oximeter] 72 72 Respiratory Rate 18 18 Blood Pressure [Le ft Arm] Blood Pressure [Ri ght Arm] 127/91 H Pulse Oximetry [address] thod Room Air DS: Data Data Completed and Pending Completed studies during hospitalization: Procedures Drainage of Stomach with Drainage Device, Via Natural or Artificial Opening (05/02/22) Insertion of Infusion Device into Left Internal Jugular Vein, Percutaneous Approach (05/02/22) Labs on day of discharge: Labs from last 24 hours 12/02/23 12/01/23 06:15 16:19 WBC 7.84 RBC 3.74 L Hgb 11.1 L Hct 33.6 MCV 90 MCH 30 MCHC 33 Plt Count 209 Sodium 130 L 131 L Potassium 4.7 4.8 Chloride 107 104 Carbon Dioxide 17 L 18 L Anion Gap 6 L 9 BUN 36 H 36 H Creatinine 0.9 1.1 Estimated Creat Clear 27.52 25.02 Estimated GFR 62 49 Glucose 173 H 246 H Lactate 3.9 H Calcium 8.4 8.4 Preliminary micro results at discharge 11/30/23 17:24 Blood Culture - Preliminary Blood NO GROWTH AFTER 24 HOURS 11/30/23 13:10 Blood Culture - Preliminary Blood NO GROWTH AFTER 24 HOURS Discharge Plan Discharge Disposition: Xfer [facility] Date of Admission: 11/30/23 06:44 Attending Provider on Discharge: Kelly Payne Primary Care Provider: Onur Schreiber Condition: Stable Anticipated Discharge Date/Time: 12/02/23 13:00 Discharge Medications: Continued acetaminophen 500 mg capsule 1,000 mg PO TID PRN ondansetron HCl 4 mg tablet 4 mg PO Q6H PRN simethicone 80 mg tablet,chewable 80 mg PO TID loperamide 2 mg Capsule 4 mg PO BID PRN sodium chloride 1,000 mg Tablet,Soluble 1,000 mg PO TIDWM 30 Days Qty: 90 0RF hydrocortisone 5 mg tablet 10 - 15 mg PO BID Rx Instructions: 15 MG IN AM 10 MG PM levothyroxine 75 mcg tablet 75 mcg PO DAILY estradiol 0.01 % (0.1 mg/gram) cream 1 appful VAGINAL .MOTH@HS Rx Instructions: MON, coenzyme Q10 100 mg capsule 100 mg PO HS olopatadine 0.2 % drops 1 drp ophthalmic (eye) DAILY cholecalciferol (vitamin D3) 50 mcg (2,000 unit) tablet 4,000 unit PO HS Women's One Daily 18 mg iron-400 mcg-500 mg Ca tablet 1 tab PO DAILY vitamin B complex [Vitamins B Complex] Capsule 1 cap PO DAILY Probiotic 3 billion cell capsule 3,000 mmu cells PO DAILY Rx Instructions: administer with a meal sertraline 50 mg tablet 50 mg PO DAILY glucose [Dex4 Glucose] 4 gram tablet,chewable 4 g PO Q15M PRN aspirin 81 mg tablet,chewable 81 mg PO HS Glucagon Emergency Kit (human) 1 mg recon soln 1 mg IM ONCE PRN insulin aspart U-100 100 unit/mL (3 mL) insulin pen 7 - 10 unit subcut TIDWM Rx Instructions: 10 UNITS IN AM 7 UNIT AT LUNCH 8 UNIT SUPPER insulin aspart U-100 100 unit/mL (3 mL) insulin pen 5 sliding scale dose subcut USEASDIRECTD Rx Instructions: 0-5 UNITS PER SLIDING SCALE nitroglycerin 0.4 mg tablet, sublingual 0.4 mg sublingual Q5M PRN Metamucil (with sugar) 3.4 gram Powder In Packet 1 tbsp PO TIDWM Qty: 1045 0RF fludrocortisone 0.1 mg Tablet 0.2 mg PO DAILY Qty: 60 0RF diphenoxylate-atropine 2.5-0.025 mg Tablet 2 tab PO QID Qty: 240 0RF sodium bicarbonate 650 mg Tablet 1,300 mg PO TIDWM Qty: 180 0RF morphine 15 mg tablet extended release 15 mg PO TID insulin glargine [Lantus Solostar U-100 Insulin] 100 unit/mL (3 mL) insulin pen 6 unit SUBCUT HS Discharge Orders: Discharge Order (Routine); Ordered 12/02/23 Ordered By: Kelly Payne Additional Instructions: No changes to home medications, Resume previous care Activity Level: No Restrictions and Other Discharge Diet: Regular and Other Diet Detail: DM1 Follow Up Appointments: Onur Schreiber MD [Primary Care Provider] - Forms: [facility] Info Instructions Admit to: SNF Discharge Potential: Poor Length of Stay: >90 days Can use facility standing orders?: Yes Code Status: DNR/DNI Rehab Potential: Fair Oxygen: No Urinary Catheter: No Lab Orders: BMP on , 12/04 please Orders are good >30 days: Yes Signature: Kelly Payne MD
--- NOTE | 2023-12-02 10:29 | PC.SOCIAL ---
Discharge planning: Called [facility] and left message for Matilda in admissions confirming pt os ready for discharge back to [facility] today. Called son, Torey, who is aware and agrees with this plan. Son states pt usually travels by non-emergency ambulance and requested this transportation be arranged at discharge. Pt has Medical Assistance which typically covers transportation charge at discharge from a hospital.
--- NOTE | 2023-12-02 11:13 | PC.NURSE ---
Discharge nursing note: Pt A&O to self this morning, disoriented to place & situation. VSS and afebrile. Ax1 with 2ww and gait belt for transfers and ambulation. Reports some lightheadedness with ambulation but pt states she ?feels much better?. PIV in right wrist SL and C/D/I, notable bruising around insertion site. RUQ ostomy C/D/I with clear/cloudy green output. AM blood sugar: 193; received 2 units SS and scheduled 10 units Novolog. Pt denies any pain, dyspnea or nausea. TELE reads NSR rate in the 60s-70s bpm. ? Nurse-nurse report provided to Tika at [facility]. Pt discharged via non-emergent EMS transfer at 1105. ?
== END 2023-12-02 11:05 | DRG 425 ==
LOC: ED 04:32 → MEDSURG 04:53
PROVIDERS: Family Medicine; Physician Assistant; Admitting Provider Internal Medicine; Emergency Provider Internal Medicine; PCP Family Medicine; Visit Provider Internal Medicine
DX: E87.5 Hyperkalemia (principal); N25.89 Other disorders resulting from impaired renal tubular function; R41.82 Altered mental status, unspecified; E87.1 Hypo-osmolality and hyponatremia; R62.7 Adult failure to thrive; Z68.1 Body mass index [BMI] 19.9 or less, adult; R54 Age-related physical debility; E27.1 Primary adrenocortical insufficiency; E03.9 Hypothyroidism, unspecified; Z78.9 Other specified health status; R19.8 Other specified symptoms and signs involving the digestive system and abdomen; Z93.2 Ileostomy status; E78.5 Hyperlipidemia, unspecified; N18.31 Chronic kidney disease, stage 3a; F41.9 Anxiety disorder, unspecified; E10.22 Type 1 diabetes mellitus with diabetic chronic kidney disease; I12.9 Hypertensive chronic kidney disease with stage 1 through stage 4 chronic kidney disease, or unspecified chronic kidney disease; I25.10 Atherosclerotic heart disease of native coronary artery without angina pectoris; K21.9 Gastro-esophageal reflux disease without esophagitis; K57.32 Diverticulitis of large intestine without perforation or abscess without bleeding; G89.29 Other chronic pain; I48.91 Unspecified atrial fibrillation; G93.49 Other encephalopathy; Z79.4 Long term (current) use of insulin; J45.909 Unspecified asthma, uncomplicated; M81.0 Age-related osteoporosis without current pathological fracture; Z79.899 Other long term (current) drug therapy; E43 Unspecified severe protein-calorie malnutrition
CPT/HCPCS: 36415; 70450; 72125; 80048; 80053; 81003; 81015; 82140; 82803; 82962; 83036; 83605; 83735; 84132; 84295; 84443; 84484; 85025; 85027; 87040; 87081; 87086; 97110; 97116; 97161; 97165; 97530; 97535; 99283; 99285; A9270; J0696; J1650; J1720; J2405; J7030; J7131

== ENCOUNTER 2023-12-02 11:01 | Outpatient (CLI) | payer BC, SELFPAY | END 2023-12-02 11:02 | disposition home or self-care (01) | LOC: AMB 12-03 11:42 | PROVIDERS: PCP Family Medicine; Visit Provider Emergency Medicine Emergency Medical Services | DX: E87.5 Hyperkalemia (principal); N25.89 Other disorders resulting from impaired renal tubular function; E87.1 Hypo-osmolality and hyponatremia; G93.40 Encephalopathy, unspecified | CPT/HCPCS: A0425; A0428 ==

== ENCOUNTER 2023-12-05 14:07 | Outpatient (REF) | payer BC, SELFPAY ==
[2023-12-05 14:32] LABS: Chloride* 103 mmol/L (96-114)
[2023-12-05 14:33] LABS: Potassium* 4.7 mmol/L (3.6-5.1); Sodium* 132 mmol/L (135-149)
[2023-12-05 14:35] LABS: Estimated Glomerular Filt Rate 55 ml/min
[2023-12-05 14:36] LABS: Anion Gap 9 mEq/L (7-15); Blood Urea Nitrogen* 28 mg/dL (7-30); Carbon Dioxide* 20 mmol/L (20-32); Glucose* 156 mg/dL (60-115)
== END 2023-12-05 14:08 | disposition home or self-care (01) ==
LOC: NPINS 14:07
PROVIDERS: PCP Family Medicine; Visit Provider Family Medicine
DX: E27.1 Primary adrenocortical insufficiency (principal)
CPT/HCPCS: 80048

== ENCOUNTER 2023-12-09 13:21 | Outpatient (REF) | payer BC, SELFPAY ==
[2023-12-09 14:12] LABS: Basophils Absolute Auto 0.03 K/uL (0.00-0.30); Basophils Percent Auto 0.3 % (0.0-3.0); Eosinophils Absolute Auto 0.05 K/uL (0.00-0.50); Eosinophils Percent Auto 0.6 % (0.0-7.0); Hematocrit 42.4 % (33.0-51.0); Hemoglobin* 13.8 gm/dL (12.0-16.0); Immature Granulocytes Abs Auto 0.04 K/uL (0.00-0.30); Immature Granulocytes Pct Auto 0.4 %; Lymphocytes Percent Auto 11.2 % (20-44); Mean Corpuscular HGB Conc 33 gm/dL (32-36); Mean Corpuscular Hemoglobin 29 pg (26-34); Mean Corpuscular Volume 90 fL (80-100); Monocytes Percent Auto 5.4 % (0.0-11.0); Neutrophils Percent Auto 82.1 % (42.0-72.0); Platelet Count* 292 K/uL (140-440); RDW Coefficient of Variation % 14.4 % (11.5-15.5); Red Blood Count 4.73 m/uL (4.00-5.20); White Blood Count* 9.09 K/uL (4.50-11.00)
[2023-12-09 14:18] LABS: Slide Review Reflex No
[2023-12-10 02:48] LABS: Chloride* 95 mmol/L (96-114); Sodium* 127 mmol/L (135-149)
[2023-12-10 02:49] LABS: Potassium* 5.2 mmol/L (3.6-5.1)
[2023-12-10 02:51] LABS: Creatinine* 1.4 mg/dL (0.5-1.5); Estimated Glomerular Filt Rate 37 ml/min
[2023-12-10 02:52] LABS: Anion Gap 13 mEq/L (7-15); Blood Urea Nitrogen* 30 mg/dL (7-30); Calcium* 9.3 mg/dL (8.4-10.6); Carbon Dioxide* 19 mmol/L (20-32)
[2023-12-10 03:13] LABS: Glucose* 445 mg/dL (60-115)
== END 2023-12-09 13:22 | disposition home or self-care (01) ==
LOC: NPINS 13:21
PROVIDERS: PCP Family Medicine; Visit Provider Nurse Practitioner Adult Health
DX: E27.1 Primary adrenocortical insufficiency (principal)
CPT/HCPCS: 80048; 85025

== ENCOUNTER 2023-12-12 17:17 | Outpatient (CLI) | payer BC, SELFPAY | END 2023-12-12 17:18 | disposition home or self-care (01) | LOC: AMB 12-15 10:30 | PROVIDERS: PCP Family Medicine; Visit Provider Family Medicine | DX: R53.81 Other malaise (principal); R79.89 Other specified abnormal findings of blood chemistry | CPT/HCPCS: A0425; A0429 ==

== ENCOUNTER 2023-12-12 17:37 | Emergency (ER) | payer BC, SELFPAY ==
[2023-12-12] VITALS (7 sets, daily range): BP systolic 122–146; BP diastolic 73–92; PULSE 79–84; RESP 14–16; TEMP 36.6; O2SAT 96–99; BMI 22.3
--- NOTE | 2023-12-12 18:08 | ED_ITS ---
HPI - General Adult General Chief complaint: Altered Mental Status Stated complaint: abnormal lab values Time Seen by Provider: 12/12/23 17:43 Source: patient Mode of arrival: EMS Limitations: no limitations History of Present Illness HPI narrative: Patient is an 88-year-old female, well-known to this facility, presenting today with hyponatremia. Nursing staff at [facility] where the patient resides calms called 911 because the patient's sodium was 124 today. Patient tells me that she feels fine. She has no increased confusion, lethargy, nausea, or vomiting. She tells me that she does not sleep well which is not abnormal for her, she tells me that she has been eating well. Patient tells me that she is surprised that lung was called as she is feeling just fine. Patient is a very complex medical history which was reviewed today. She does have chronic hyponatremia. She usually runs in the upper 120s to low 130s. Patient was hospitalized at the end of November with hyponatremia, hyperkalemia M, acute encephalopathy-she was started on supplemental sodium tablets on 12/01. Of note, her potassium was slightly elevated also at 5.5. Related Data Home Medications Medication Instructions Recorded Confirmed cholecalciferol (vitamin D3) 50 4,000 unit PO HS 05/02/22 11/30/23 mcg (2,000 unit) tablet coenzyme Q10 100 mg capsule 100 mg PO HS 05/02/22 11/30/23 estradiol 0.01% (0.1 mg/gram) 1 appful vaginal .MOTH@HS 05/02/22 11/30/23 vaginal cream hydrocortisone 5 mg tablet 10 - 15 mg PO BID 05/02/22 11/30/23 lactobacillus combination no.4 3 3,000 mmu cells PO DAILY 05/02/22 11/30/23 billion cell capsule (Probiotic) levothyroxine 75 mcg tablet 75 mcg PO DAILY 05/02/22 11/30/23 multivit-iron 18 mg-folic acid 400 1 tab PO DAILY 05/02/22 11/30/23 mcg-calcium 500 mg-minerals tablet (Women's One Daily) olopatadine 0.2 % eye drops 1 drp ophthalmic (eye) DAILY 05/02/22 11/30/23 vitamin B complex (Vitamins B 1 cap PO DAILY 05/02/22 11/30/23 Complex capsule) acetaminophen 500 mg capsule 1,000 mg PO TID PRN 05/28/22 11/30/23 ondansetron HCl 4 mg tablet 4 mg PO Q6H PRN 05/28/22 11/30/23 simethicone 80 mg chewable tablet 80 mg PO TID 05/28/22 11/30/23 aspirin 81 mg chewable tablet 81 mg PO HS 03/03/23 11/30/23 glucose 4 gram chewable tablet 4 g PO Q15M PRN 03/03/23 11/30/23 (Dex4 Glucose) sertraline 50 mg tablet 50 mg PO DAILY 03/03/23 11/30/23 loperamide 2 mg capsule 4 mg PO BID PRN 03/27/23 11/30/23 glucagon 1 mg solution for 1 mg IM ONCE PRN 09/19/23 11/30/23 injection (Glucagon Emergency Kit) insulin aspart U-100 100 unit/mL 5 sliding scale dose subcut 09/19/23 11/30/23 (3 mL) subcutaneous pen USEASDIRECTD insulin aspart U-100 100 unit/mL 7 - 10 unit subcut TIDWM 09/19/23 11/30/23 (3 mL) subcutaneous pen nitroglycerin 0.4 mg sublingual 0.4 mg sublingual Q5M PRN 09/19/23 11/30/23 tablet insulin glargine 100 unit/mL (3 6 unit subcut 11/30/23 11/30/23 mL) subcutaneous pen (Lantus Solostar U-100 Insulin) morphine 15 mg tablet,extended 15 mg PO TID 11/30/23 11/30/23 release Previous Rx's Medication Instructions Recorded sodium chloride 1,000 mg soluble 1,000 mg PO TIDWM 30 days #90 tabs 04/02/23 tablet diphenoxylate-atropine 2.5 2 tab PO QID #240 tabs 09/30/23 mg-0.025 mg tablet fludrocortisone 0.1 mg tablet 0.2 mg (2 x 0.1 mg) PO DAILY #60 09/30/23 tabs psyllium husk (with sugar) 3.4 1 tbsp PO TIDWM #1,045 grams 09/30/23 gram oral powder packet (Metamucil (with sugar)) sodium bicarbonate 650 mg tablet 1,300 mg (2 x 650 mg) PO TIDWM 09/30/23 #180 tabs Allergies Allergy/AdvReac Type Severity Reaction Status Date / Time adhesive tape Allergy Mild Rash Verified 11/30/23 03:03 diclofenac Allergy Unknown Verified 11/30/23 03:03 aspartame Allergy Verified 11/30/23 03:03 beclomethasone Allergy Verified 11/30/23 03:03 bisacodyl Allergy Verified 11/30/23 03:03 dexamethasone Allergy Verified 11/30/23 03:03 doxycycline Allergy Verified 11/30/23 03:03 erythromycin base Allergy Verified 11/30/23 03:03 gabapentin Allergy Verified 11/30/23 03:03 hydrochlorothiazide Allergy Verified 11/30/23 03:03 lactase [From Dairy Aid] Allergy Verified 11/30/23 03:03 meclizine Allergy Verified 11/30/23 03:03 metformin Allergy Verified 11/30/23 03:03 metoclopramide Allergy Verified 11/30/23 03:03 nabumetone [From Relafen] Allergy Verified 11/30/23 03:03 propranolol Allergy Verified 11/30/23 03:03 raloxifene Allergy Verified 11/30/23 03:03 ramipril Allergy Verified 11/30/23 03:03 tobramycin Allergy Verified 11/30/23 03:03 venlafaxine Allergy Verified 11/30/23 03:03 Review of Systems Status of ROS: Reports: 10 or more systems reviewed and unremarkable except as noted in History and below [facility] Medical History Acute cystitis without hematuria ?N30.00 - Acute cystitis without hematuria (ICD-10) Frailty syndrome in geriatric patient ?R54 - Age-related physical debility (ICD-10) Physical deconditioning ?R53.81 - Other malaise (ICD-10) Chronic hyponatremia ?E87.1 - Hypo-osmolality and hyponatremia (ICD-10) Low body weight due to inadequate caloric intake ?R63.6 - Underweight (ICD-10) Adult failure to thrive ?R62.7 - Adult failure to thrive (ICD-10) Weakness ?R53.1 - Weakness (ICD-10) Chronic pain ?G89.29 - Other chronic pain (ICD-10) Altered mental status ?R41.82 - Altered mental status, unspecified (ICD-10) Atrial fibrillation ?I48.91 - Unspecified atrial fibrillation (ICD-10) Diabetes mellitus type 1 (12/22/11) ?E10.9 - Type 1 diabetes mellitus without complications (ICD-10) Renal tubular acidosis, type 4 ?N25.89 - Other disorders resulting from impaired renal tubular function (ICD-10) Ileostomy in place ?Z93.2 - Ileostomy status (ICD-10) Unsteady gait ?R26.81 - Unsteadiness on feet (ICD-10) Polypharmacy ?Z79.899 - Other watermelon inspector (current) drug therapy (ICD-10) Osteoporosis ?M81.0 - Age-related osteoporosis without current pathological fracture (ICD- 10) Ketoacidosis due to diabetes mellitus (08/03/13) ?E11.10 - Type 2 diabetes mellitus with ketoacidosis without coma (ICD-10) Irritable bowel syndrome ?K58.9 - Irritable bowel syndrome without diarrhea (ICD-10) Falls (03/31/12) ?W19.XXXA - Unspecified fall, initial encounter (ICD-10) Epistaxis ?R04.0 - Epistaxis (ICD-10) Diverticulitis of large intestine ?K57.32 - Diverticulitis of large intestine without perforation or abscess without bleeding (ICD-10) Diabetic gastroparesis (08/03/13) ?E11.43 - Type 2 diabetes mellitus with diabetic autonomic (poly)neuropathy (ICD-10) ?K31.84 - Gastroparesis (ICD-10) Coronary artery disease ?I25.10 - Atherosclerotic heart disease of [place] coronary artery without angina pectoris (ICD-10) Concussion (03/29/12) ?S06.0XAA - Concussion with loss of consciousness status unknown, initial encounter (ICD-10) Compression fracture of L2 vertebra with delayed healing ?S32.020G - Wedge compression fracture of second lumbar vertebra, subsequent encounter for fracture with delayed healing (ICD-10) Closed head injury ?S09.90XA - Unspecified injury of head, initial encounter (ICD-10) Closed fracture of superior ramus of right pubis ?S32.511A - Fracture of superior rim of right pubis, initial encounter for closed fracture (ICD-10) Closed fracture of left side of symphysis pubis ?S32.592A - Other specified fracture of left pubis, initial encounter for closed fracture (ICD-10) Closed fracture of left inferior pubic ramus ?S32.592A - Other specified fracture of left pubis, initial encounter for closed fracture (ICD-10) Chronic constipation (07/02/13) ?K59.09 - Other constipation (ICD-10) Anxiety disorder ?F41.9 - Anxiety disorder, unspecified (ICD-10) 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 (ICD-10) Seizure ?R56.9 - Unspecified convulsions (ICD-10) Hypothyroidism ?E03.9 - Hypothyroidism, unspecified (ICD-10) Hyponatremia (12/22/11) ?E87.1 - Hypo-osmolality and hyponatremia (ICD-10) Hyperkalemia (12/22/11) ?E87.5 - Hyperkalemia (ICD-10) Gastroesophageal reflux disease ?K21.9 - Gastro-esophageal reflux disease without esophagitis (ICD-10) Chronic pain ?G89.29 - Other chronic pain (ICD-10) Asthma ?J45.909 - Unspecified asthma, uncomplicated (ICD-10) Acute adrenal crisis ?E27.2 - Addisonian crisis (ICD-10) POLST (Physician Orders for Life-Sustaining Treatment) ?Z78.9 - Other specified health status (ICD-10) Health care directive on file ?Z78.9 - Other specified health status (ICD-10) High output ileostomy ?R19.8 - Other specified symptoms and signs involving the digestive system and abdomen (ICD-10) ?Z93.2 - Ileostomy status (ICD-10) Hyperkalemia ?E87.5 - Hyperkalemia (ICD-10) Abnormal liver enzymes ?R74.8 - Abnormal levels of other serum enzymes (ICD-10) Dementia ?F03.90 - Unspecified dementia without behavioral disturbance (ICD-10) Cataract ?H26.9 - Unspecified cataract (ICD-10) Dorsalgia ?M54.9 - Dorsalgia, unspecified (ICD-10) Hyperlipidemia ?E78.5 - Hyperlipidemia, unspecified (ICD-10) Unspecified dementia without behavioral disturbance ?F03.90 - Unspecified dementia without behavioral disturbance (ICD-10) Postmenopausal atrophic vaginitis ?N95.2 - Postmenopausal atrophic vaginitis (ICD-10) Convulsions ?R56.9 - Unspecified convulsions (ICD-10) Pressure ulcer of sacral region, unstageable ?L89.150 - Pressure ulcer of sacral region, unstageable (ICD-10) Constipation ?K59.00 - Constipation, unspecified (ICD-10) Primary hypertension ?I10 - Essential (primary) hypertension (ICD-10) Vertebral fracture Osteoarthritis ?M19.90 - Unspecified osteoarthritis, unspecified site (ICD-10) Chronic kidney disease (CKD) stage G3a/A1, moderately decreased glomerular filtration rate (GFR) between 45-59 mL/min/1.73 square meter and albuminuria creatinine ratio less than 30 mg/g ?N18.31 - Chronic kidney disease, stage 3a (ICD-10) 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 - Atherosclerotic heart disease of [place] coronary artery without angina pectoris (ICD-10) GERD (gastroesophageal reflux disease) ?K21.9 - Gastro-esophageal reflux disease without esophagitis (ICD-10) Anxiety ?F41.9 - Anxiety disorder, unspecified (ICD-10) Pelvic fracture ?S32.9XXA - Fracture of unspecified parts of lumbosacral spine and pelvis, initial encounter for closed fracture (ICD-10) Primary adrenocortical insufficiency ?E27.1 - Primary adrenocortical insufficiency (ICD-10) Diabetes mellitus type 1 ?E10.9 - Type 1 diabetes mellitus without complications (ICD-10) Surgical History S/P small bowel resection ?Z90.49 - Acquired absence of other specified parts of digestive tract (ICD- 10) H/O angioplasty ?Z98.62 - Peripheral vascular angioplasty status (ICD-10) H/O mastoidectomy ?Z90.89 - Acquired absence of other organs (ICD-10) S/P laparoscopic cholecystectomy ?Z90.49 - Acquired absence of other specified parts of digestive tract (ICD- 10) S/P appendectomy ?Z90.49 - Acquired absence of other specified parts of digestive tract (ICD- 10) No significant past surgical history Social History Narrative: [facility]. Code status DNR DNI What is your current living situation?: I presently have a place to live Problems where you live: no known problems In the past 12 months, utilities in danger of being shut off: no In past 12 months, lack of transportation kept you from medical appts, meetings, work, or getting things needed for daily living: no In the past 12 mos, have been you worried that your food would run out before you had money to buy more?: never true In the past 12 mos, the food you bought just didn't last and you didn't have money to buy more?: never true Highest level of school completed/degree received: Master's degree Smoking Status: Never smoker Do you use any of these nicotine containing products: None Nicotine containing products detail: fang not current pt unable to respond appropriately Second hand tobacco smoke exposure: No How often do you have a drink containing alcohol: never How often do you have six or more drinks on one occasion: Never AUDIT-C Alcohol total score: 0 Non-prescribed substance use: other Non-prescribed substance use details: pt unable to answer Caffeine: Yes (diet coke) How often does anyone, including family, friends and others, physically hurt you : never How often does anyone, including family, friends and others, insult or talk down to you: never How often does anyone, including family, friends and others, threaten you with harm: never How often does anyone, including family, friends and others, scream or curse at you: never service: No Exam Narrative: Exam Narrative: Thin, frail elderly patient in no acute distress. Alert and oriented. Answers questions appropriately, she is cooperative. Mood and affect are appropriate. Patient speaks in full sentences without needing to catch her breath. She does not appear ill or toxic. HEENT: Normocephalic atraumatic. Pupils are equally round reactive to light. Extraocular muscles are intact. Conjunctivae are moist without any icterus noted. Moist mucous membranes. Cardiovascular: Heart is regular rate and rhythm S1 and S2 are present without any murmurs. Lungs: Clear to auscultation bilaterally no wheezes rhonchi or rales are appreciated. Patient takes deep breaths without any discomfort. Abdomen: Soft, nontender and nondistended. Extremities: Bilateral lower extremities are without edema. Skin: Well perfused without any obvious rashes. Scattered ecchymosis. Const: Vital Signs, click to edit/add: Vital Signs - 24 hr 12/12/23 17:39 Temperature 97.8 F Pulse Rate [Pulse Oximeter] 80 Respiratory Rate 14 Blood Pressure [Le ft Upper Arm] 146/84 H Pulse Oximetry 99 Oxygen Delivery Me thod Room Air Course Course ED Course: EKG, read by me, shows normal sinus rhythm with a pulse of 87. There are no concerning ST changes. Patient's past medical history was reviewed at length. Given that she is currently completely asymptomatic we opted to give her 500 mL of normal saline at this time along with 1 dose of Lokelma. Given that she is hemodynamically stable without any hypotension, do not think that she is having an adrenal crisis. However, I do recommend that she double her steroid dose for the next 2 days. she was [facility] the jail. Vital Signs Vital signs: Initial Vital Signs Temperature 97.8 F 12/12/23 17:39 Temperature Source Temporal Artery Scan 12/12/23 17:39 Pulse Rate 80 12/12/23 17:39 Pulse Rhythm Regular 12/12/23 17:39 Respiratory Rate 14 12/12/23 17:39 Blood Pressure 146/84 H 12/12/23 17:39 Blood Pressure Mean 104 12/12/23 17:39 Blood Pressure Position Supine 12/12/23 17:39 Pulse Oximetry 99 12/12/23 17:39 Oxygen Delivery Method Room Air 12/12/23 17:39 Vital Signs Temperature 97.8 F 12/12/23 17:39 Pulse Rate 80 12/12/23 17:39 Respiratory Rate 14 12/12/23 17:39 Blood Pressure 146/84 H 12/12/23 17:39 Pulse Oximetry 99 12/12/23 17:39 Oxygen Delivery Method Room Air 12/12/23 17:39 Temperature 97.8 F 12/12/23 17:39 Pulse Rate 80 12/12/23 17:39 Respiratory Rate 14 12/12/23 17:39 Blood Pressure 146/84 H 12/12/23 17:39 Pulse Oximetry 99 12/12/23 17:39 Oxygen Delivery Method Room Air 12/12/23 17:39 Medications Administered Medications: Generic Name Dose Route Start Last Admin Trade Name Freq PRN Reason Stop Dose Admin Sodium Chloride 500 mls @ 500 mls/hr 12/12/23 18:02 12/12/23 18:09 0.9 % Sodium Chloride 500 Ml IV 12/12/23 19:01 500 mls/hr .Q1H ONE Administration Medical Decision Making MDM Narrative Medical decision making narrative: Hyponatremia of 124 in the setting of chronic hyponatremia, hyperkalemia. Treatment per above Medical Records Medical records reviewed: Yes I reviewed the patient's medical records Lab Data Lab results reviewed: Yes I reviewed the patient's lab results ECG Data Attestation: I personally reviewed and interpreted this ECG as follows: Discharge Plan Discharge Clinical Impression: Hyponatremia, Hyperkalemia Patient Disposition: Home w/ Parent or Adult Condition: Stable Additional Instructions: Recommend repeating electrolytes in the morning. Make sure patient is receiving insulin as prescribed. Double the dose of hydrocortisone for the next 2 days. Prescriptions: No Action acetaminophen 500 mg capsule 1,000 mg PO TID PRN ondansetron HCl 4 mg tablet 4 mg PO Q6H PRN simethicone 80 mg tablet,chewable 80 mg PO TID loperamide 2 mg Capsule 4 mg PO BID PRN sodium chloride 1,000 mg Tablet,Soluble 1,000 mg PO TIDWM 30 Days Qty: 90 0RF hydrocortisone 5 mg tablet 10 - 15 mg PO BID Rx Instructions: 15 MG IN AM 10 MG PM levothyroxine 75 mcg tablet 75 mcg PO DAILY estradiol 0.01 % (0.1 mg/gram) cream 1 appful VAGINAL .MOTH@HS Rx Instructions: MON, TH coenzyme Q10 100 mg capsule 100 mg PO HS olopatadine 0.2 % drops 1 drp ophthalmic (eye) DAILY cholecalciferol (vitamin D3) 50 mcg (2,000 unit) tablet 4,000 unit PO HS Women's One Daily 18 mg iron-400 mcg-500 mg Ca tablet 1 tab PO DAILY vitamin B complex [Vitamins B Complex] Capsule 1 cap PO DAILY Probiotic 3 billion cell capsule 3,000 mmu cells PO DAILY Rx Instructions: administer with a meal sertraline 50 mg tablet 50 mg PO DAILY glucose [Dex4 Glucose] 4 gram tablet,chewable 4 g PO Q15M PRN aspirin 81 mg tablet,chewable 81 mg PO HS Glucagon Emergency Kit (human) 1 mg recon soln 1 mg IM ONCE PRN insulin aspart U-100 100 unit/mL (3 mL) insulin pen 7 - 10 unit subcut TIDWM Rx Instructions: 10 UNITS IN AM 7 UNIT AT LUNCH 8 UNIT SUPPER insulin aspart U-100 100 unit/mL (3 mL) insulin pen 5 sliding scale dose subcut USEASDIRECTD Rx Instructions: 0-5 UNITS PER SLIDING SCALE nitroglycerin 0.4 mg tablet, sublingual 0.4 mg sublingual Q5M PRN Metamucil (with sugar) 3.4 gram Powder In Packet 1 tbsp PO TIDWM Qty: 1045 0RF fludrocortisone 0.1 mg Tablet 0.2 mg PO DAILY Qty: 60 0RF diphenoxylate-atropine 2.5-0.025 mg Tablet 2 tab PO QID Qty: 240 0RF sodium bicarbonate 650 mg Tablet 1,300 mg PO TIDWM Qty: 180 0RF morphine 15 mg tablet extended release 15 mg PO TID insulin glargine [Lantus Solostar U-100 Insulin] 100 unit/mL (3 mL) insulin pen 6 unit SUBCUT HS Follow Up/Referrals: Onur Schreiber MD [Primary Care Provider] - Stand [facility]one [facility]
[2023-12-12] MEDS: 0.9 % SODIUM CHLORIDE 500 ML 500 ML IV (18:09)
[2023-12-12] MEDS: SODIUM ZIRCONIUM CYCLOSILICATE 10 GM PO (18:39)
== END 2023-12-12 19:53 | disposition home or self-care (01) ==
PROVIDERS: Emergency Provider Family Medicine; PCP Family Medicine
DX: E87.1 Hypo-osmolality and hyponatremia (principal); E87.5 Hyperkalemia
CPT/HCPCS: 93005; 99284; J7030

== ENCOUNTER 2023-12-12 19:49 | Outpatient (CLI) | payer BC, SELFPAY | END 2023-12-12 19:50 | disposition home or self-care (01) | LOC: AMB 12-15 11:11 | PROVIDERS: PCP Family Medicine; Visit Provider Family Medicine | DX: F03.90 Unspecified dementia, unspecified severity, without behavioral disturbance, psychotic disturbance, mood disturbance, and anxiety (principal) | CPT/HCPCS: A0425; A0428 ==

== ENCOUNTER 2023-12-15 11:00 | Outpatient (REF) | payer BC, SELFPAY ==
[2023-12-15 11:28] LABS: Chloride* 98 mmol/L (96-114); Potassium* 4.9 mmol/L (3.6-5.1); Sodium* 129 mmol/L (135-149)
[2023-12-15 11:31] LABS: Anion Gap 9 mEq/L (7-15); Blood Urea Nitrogen* 31 mg/dL (7-30); Carbon Dioxide* 22 mmol/L (20-32); Creatinine* 1.2 mg/dL (0.5-1.5); Estimated Glomerular Filt Rate 44 ml/min
[2023-12-15 11:32] LABS: Calcium* 9.1 mg/dL (8.4-10.6); Glucose* 251 mg/dL (60-115)
== END 2023-12-15 11:01 | disposition home or self-care (01) ==
LOC: NPINS 11:00
PROVIDERS: PCP Family Medicine; Visit Provider Nurse Practitioner Adult Health
DX: E87.1 Hypo-osmolality and hyponatremia (principal)
CPT/HCPCS: 80048

== ENCOUNTER 2024-01-15 09:20 | Outpatient (REF) | payer BC, SELFPAY ==
[2024-01-15 10:10] LABS: Chloride* 97 mmol/L (96-114); Sodium* 126 mmol/L (135-149)
[2024-01-15 10:11] LABS: Potassium* 5.2 mmol/L (3.6-5.1)
[2024-01-15 10:13] LABS: Anion Gap 3 mEq/L (7-15); Blood Urea Nitrogen* 32 mg/dL (7-30); Carbon Dioxide* 26 mmol/L (20-32); Estimated Glomerular Filt Rate 55 ml/min
[2024-01-15 10:14] LABS: Calcium* 9.3 mg/dL (8.4-10.6)
[2024-01-15 10:24] LABS: Glucose* 377 mg/dL (60-115)
== END 2024-01-15 09:21 | disposition home or self-care (01) ==
LOC: NPINS 09:20
PROVIDERS: PCP Family Medicine; Visit Provider Nurse Practitioner Adult Health
DX: E87.1 Hypo-osmolality and hyponatremia (principal)
CPT/HCPCS: 80048

== ENCOUNTER 2024-02-23 01:36 | Outpatient (CLI) | payer BC, SELFPAY ==
--- OUTSIDE RECORDS SUMMARY | 2024-03-01 16:02 | XMS_ITS | Referral Summary ---
Author Name Unknown Organization [facility] Address [address] [place] [address] Care Team Providers Care Sign Language Instructor Name Role Phone Unavailable Primary Care Provider Unavailabl e Source Comments Patient records contain information from all sites at [facility]. For routine questions regarding patient records, call [phone] during business hours, M-F 8:00 AM - 5:00 PM Central Time. Record requests for emergency care only can be directed to [phone] at any time.[facility] Allergies Active Allergy Reactions Criticality Noted Date [...] Order 1 Unspecified 11 2 Active multivitamin-iron -LP-Hq-nuqvygqj (THERAPEUTIC-M) 400 mcg (folic acid) per tablet [...] Disease 05/02/2022 Atherosclerotic Heart Diseas e Of [place] Coronary Artery Without Angina Pectoris 05/02/2022 Hyperlipidemia [...] METABOLIC PANEL, S/P Routine 01/06/2024 7:36 AM MANAGER EMPLOYEE RELATIONS HEMOGLOBIN A1C, B STAT 03/03/2023 6:2 8 [...] Siddhartha Mata M.D., M.B.A. LAB BLOOD ADD-ON [facility] [address] [place] [address], [place] DTL [facility] [address] [place] [address] from Last 3 Months or Most Recently Relevant to Health Maintenance Advance Directives For more information, please contact: [phone] Documents on File Type Date Recorded Patient Cash Application Clerk Expl anation Advance Directives 03/10/2023 10:42 AM [...]
--- OUTSIDE RECORDS SUMMARY | 2024-03-01 16:02 | XMS_ITS | Clinical Summary ---
Author Name Unknown Organization [facility] Address [address] [place] [address] Care Team Providers Care Furnace Converter Name Role Phone Unavailable Primary Care Provider Unavailabl e Source Comments Patient records contain information from all sites at [facility]. For routine questions regarding patient records, call [phone] during business hours, M-F 8:00 AM - 5:00 PM Central Time. Record requests for emergency care only can be directed to [phone] at any time.[facility] Allergies Active Allergy Reactions Criticality Noted Date [...] Order 1 Unspecified 11 2 Active multivitamin-iron -RY-Lh-lhbsdmsw (THERAPEUTIC-M) 400 mcg (folic acid) per tablet [...] Disease 05/02/2022 Atherosclerotic Heart Diseas e Of [place] Coronary Artery Without Angina Pectoris 05/02/2022 Hyperlipidemia [...] METABOLIC PANEL, S/P Routine 01/06/2024 7:36 AM TRAFFIC CONTROL SUPERVISOR HEMOGLOBIN A1C, B STAT 03/03/2023 6:2 8 [...] Siddhartha Mata M.D., M.B.A. LAB BLOOD ADD-ON [facility] [address] [place] [address], [place] D[place] [facility] [address] [place] [address] from Last 3 Months or Most Recently Relevant to Health Maintenance Advance Directives For more information, please contact: [phone] Documents on File Type Date Recorded Patient Desktop Support Engineer Expl anation Advance Directives 03/10/2023 10:42 AM [...]
--- OUTSIDE RECORDS SUMMARY | 2024-03-01 16:02 | XMS_ITS | Clinical Summary ---
Author Name Unknown Organization [facility] Address [place], [place] [address] Care Team Providers Care National Account Representative Name Role Phone Mercedes, Miladis Zavala RN Unavailable [phone] Perla Corrigan RN Unavailable [phone] Onur Schreiber MD Primary Care Provider [...] taking differently: 2 mg Oral QID, Informant: Longterm [facility], Reported on 08/31/2023 Zupcmlxoihxmj-Qxw-K A-Ginkgo (ONE DAILY WOMEN 50 PLUS) 400-120 mcg-mg tabIndications:Oste oporosis, unspecified osteoporosis type, unspecified pathological fracture presence Take by mouth. 90 tablet 2 0 Active Additional Information Patient taking differently: 1 TabletOralDAILY, Informant: Longterm [facility], Reported on 08/31/2023 nitroglycerin (NITROSTAT) 0.4 mg sublingual tabletIndications:C AD in [place]ling[place] artery Place 1 tablet under the tongue [...] enteric coated tabletIndications:C oronary artery disease involving [place] coronary artery of [place] heart with unstable angina pectoris (HC) TAKE ONE TABLET DAILY WITH A MEAL AT 8PM 90 tablet 2 0 Active Additional Information Patient taking differently: 81 mgOralDAILY EVENING, Informant: Longterm [facility], Reported on 08/31/2023 coenzyme q10 100 mg capIndications:Athe rosclerosis of [place] coronary artery of [place] heart without angina pectoris Take 1 capsule by mouth once daily. Take 1 capsule by mouth daily at 8am 90 capsule 3 1 Active cholecalciferol, Vitamin D3, 2,000 unit tabletIndications:C ompression fracture of L1 lumbar vertebra, sequela TAKE TWO TABLETS DAILY AT 8PM 180 tablet 3 1 Active Additional Information Patient taking differently: 4,000 unitOralDAILY EVENING, Informant: Longterm MAR, Reported on 08/31/2023 levothyroxine (SYNTHROID) 75 mcg tabletIndications:A cquired hypothyroidism TAKE ONE TABLET DAILY BEFORE BREAKFAST AT 8AM 90 tablet 1 Active Additional Information Patient taking differently: 75 mcgOralBEFORE BREAKFAST, Informant: Longterm [facility], Reported on 08/31/2023 estradioL (ESTRACE) [...] 25 mg tabletIndications:C oronary artery disease involving [place] coronary artery of [place] heart with unstable angina pectoris (HC) Take 0.5 Tablets (12.5 mg) by mouth two times daily. 0 3 Active fludrocortisone (FLORINEF) 0.1 mg tabletIndications:A drenal insufficiency (Irving's disease) (HC) Take 3 Tablets (0.3 mg) [...] predniSONE 5 mg/5 mL solutionIndications :Adrenal insufficiency (Irving's disease) (HC) Take 8 mL (8 mg) by mouth once daily with a meal. 240 mL 1 4 Active hydrocortisone (CORTEF) 5 mg tabletIndications:A drenal insufficiency (Irving's disease) (HC) Hydrocortisone 20 mg in the [...] up to donate her body to the [facility]. Call [phone] right after to donate. Essential hypertension 02/19/2017 Type 1 diabetes mellitus with complication 02/19 Overview: She developed Diabetes in 1997. She was diagnosed with Type [address] Rodriguez in 07/2013 per Becca Hypothyroidism 11/20/2016 Chronic pain syndrome 08/14/2016 Atherosclerosis of [place] co ronary artery of [place] heart without angina pectoris 04/24/2016 Overview: Dr. Zee of Cardiology informed her in 03/2017 that there was no evidence to keep her on the Plavix. She told him she wanted to stay on this and Dr. Zee okayed this. Hyponatremia 01/21/2016 Anxiety state, unspecified 07/26/2015 Arthritis 01/05/2014 Diabetic gastroparesis 08/04/2013 Pain medication agreement 10/21/2012 Last Assessment & Plan: Signed and scanned 09/2012. 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, type 4 [...] Encounters Date Type Department Care Team Description 02/27/2024 Telephone [facility] [address] [facility] [address] [place] [place] [phone] Vivian Newman MD Medication Management (predniSONE 5 mg/5 mL solution) 02/20/2024 Lab Requisition [facility] [phone] Onur Schreiber MD 02/19/2024 Telephone [facility], [facility] [address] [place] [phone] Vivian Newman MD Medication Management (predniSONE 5 mg/5 mL solution ) 02/09/2024 Lab Requisition [facility] [phone] Onur Schreiber MD 02/09/2024 Telephone Don, [facility] [address] [place] [address] Vivian Newman MD Results 01/28/2024 Telephone Don, [facility] [address] [place] [phone] Vivian Newman MD Diabetes (Blood Sugar Log, Lab Results, and MAR) 01/26/2024 Lab Requisition [facility] [phone] Clarissa Grimes, SEAM STEAMER 01/19/2024 Telephone Don, [facility] [address] [place] [phone] Vivian Newman MD Medication Management 01/19/2024 Telephone Don, [facility] [address] [place] [phone] Vivian Newman MD Diabetes 01/15/2024 Orders Only [facility] Scanner 1 scan: (1-Ord) [facility], MULTIPLE LAB RESULTS, 01/15/2024 01/15/2024 Orders Only [facility] Scanner 1 scan: (1-Ord) [facility], MULTIPLE LABS, 01/15/2024 01/15/2024 Telephone [facility], [facility] [address] [place] [phone] Vivian Newman MD Results 01/14/2024 2:00 PM CDT Phone Office Visit [facility] [address] [place] [phone] Vivian Newman MD Phone Visit; Follow Up 01/14/2024 Lab Requisition [facility] [phone] Onur Schreiber MD 01/06/2024 Telephone [facility] [address] [place] [phone] Vivian Newman MD Results 01/05/2024 Lab Requisition [facility] [phone] Clarissa Grimes, SEAM STEAMER 12/29/2023 Lab Requisition [facility] [phone] Clarissa Grimes, SEAM STEAMER 12/18/2023 Lab Requisition [facility] [phone] Onur Schreiber MD 12/16/2023 Telephone [facility] [address] [place] [phone] Vivian Newman MD Consult 12/15/2023 2:30 PM INVESTIGATOR CLAIMS Office Visit [facility] [address] [place] [phone] Vivian Newman MD Consult (Type 1 DM, Irving Disease/Referred by Onur Schreiber MD) 12/15/2023 Orders Only [facility] Scanner 1 scan: (1-Ord) [facility], MULTIPLE LABS, 12/15/2023 12/15/2023 Travel 12/15/2023 Telephone [facility] [address] [place] [phone] Vivian Newman MD Appointment 12/12/2023 Orders Only [facility] Scanner 1 scan: (1-Ord) [facility], SODIUM, 12/12/2023 12/09/2023 Orders Only [facility] Scanner 1 scan: (1-Ord) [facility], RESULTS, 12/09/2023 12/09/2023 Orders Only [facility] Scanner 1 scan: (1-Ord) [facility], MULTIPLE LABS, 12/09/2023 from Last 3 Months Immunizations Name Administration [...] Disease Father heart attack d ied of [place] at 62 Other Maternal Grandmother at 99.5 [...] Comments Blood Pressure 115/60 12/15/2023 2:20 PM INVESTIGATOR CLAIMS Pulse 84 12/15/2023 2:20 PM INVESTIGATOR CLAIMS Temperature 36.9 ??C (98.5 ??F) 09/04/2023 1:15 AM CD T Respiratory Rate 14 09/04/2023 1:15 AM CDT Oxygen Saturation 95% 09/04/2023 1:15 AM CDT Inhaled Oxygen Concentration - - Weight 46.2 kg (101 lb 12.8 oz) 12/15/2023 2:20 PM INVESTIGATOR CLAIMS Height 157.5 cm (5' 2) 08/31/2023 2:35 AM CDT Body Mass Index 18.62 08/31/2023 2:35 AM CDT Plan of Treatment Upcoming Encounters Date Type Department Care Team (Late st Contact Info) Description 04/01/2024 3:00 PM CDT Office Visit [facility] [address] [place] [phone] Vivian Newman MD [address] [place] [address] [place] [place] [address] Health Maintenance [...] BASIC METABOLIC PANEL Routine 01/06/2024 7:36 AM INVESTIGATOR CLAIMS Primary adrenocortical insufficiency (HC) BASIC METABOLIC PANEL Routine 12/30/2023 7:39 AM INVESTIGATOR CLAIMS Hypo-osmolality and hyponatremia ELECTROLYTE PANEL Routine 12/23/2023 7:2 2 AM INVESTIGATOR CLAIMS Addisonian crisis (HC) SCAN-LABORATORY REPORT 12/15/2023 12:00 AM INVESTIGATOR CLAIMS SCAN-LABORATORY REPORT 12/12/2023 12:00 AM INVESTIGATOR CLAIMS SCAN-LABORATORY REPORT 12/09/2023 12:00 AM INVESTIGATOR CLAIMS SCAN-LABORATORY REPORT 12/09/2023 12:00 AM INVESTIGATOR CLAIMS from Last 3 Months Results * (ABNORMAL) BASIC METABOLIC PANEL (02/10/2024 7:44 AM CDT) Only the most recent of4 resultswithin the time period is included. SODIUM 130(L) 136 - 145 mmol/L 02/10/2024 9:36 AM [facility] POTASSIUM 5.4(H) 3.5 - 5.1 mmol/L 02/10/2024 9:36 AM [facility] CHLORIDE 97(L) 98 - 107 mmol/L 02/10/2024 9:36 AM [facility] CO2,TOTAL 24 22 - 29 mmol/L 02/10/2024 9:36 AM [facility] ANION GAP 9 5 - 18 02/10/2024 9:36 AM [facility] GLUCOSE 232(H) 70 - 99 mg/dL 02/10/2024 9:36 AM [facility] CALCIUM 9.8 8.8 - 10.2 mg/dL 02/10/2024 9:36 AM [facility] BUN 28(H) 8 - 23 mg/dL 02/10/2024 9:36 AM [facility] CREATININE 1.16(H) 0.50 - 0.90 mg/dL 02/10/2024 9:36 AM [facility] BUN/CREAT RATIO 24(H) 10 - 20 9:36 AM [facility] eGFR 46(L) >90 mL/min/1.7 3m2 02/10/2024 9:36 AM [facility] Comment:As of 2022, eG [...] Onur Schreiber MD CHEMISTRY Performing Organization Address [facility] Co de Phone Number [facility] [address] [place] [address] * SCAN-LABORATORY REPORT (01/15/2024 12:00 AM CDT) Only the most recent of6 resultswithin the time period is included. Scanner OTHER * (ABNORMAL) ELECTROLYTE PANEL (12/23/2023 7:22 AM INVESTIGATOR CLAIMS) SODIUM 130(L) 136 - 145 mmol/L 12/23/2023 8:37 AM [facility] POTASSIUM 5.2(H) 3.5 - 5.1 mmol/L 12/23/2023 8:37 AM [facility] CHLORIDE 96(L) 98 - 107 mmol/L 12/23/2023 8:37 AM [facility] CO2,TOTAL 23 22 - 29 mmol/L 12/23/2023 8:37 AM [facility] ANION GAP 11 5 - 18 12/23/2023 8:37 AM [facility] Blood BLOOD SPECIMEN / Unknown Butterfly / Unknown 12/23/2023 7:22 AM INVESTIGATOR CLAIMS 12/23/2023 8:11 AM INVESTIGATOR CLAIMS Onur Schreiber MD CHEMISTRY Performing Organization Address City/[facility]/ZIP Co de Phone Number [facility] [address] [place] [address] from Last 3 Months Advance Directives Documents on File Type Date Recorded Patient System Administration Manager Expl anation POLST 01/05/2018 11:42 AM TRISTEN YODER, 01/02/18 Healthcare Directive 06/02/2017 9:37 AM AN ATOMMoreno RUSSELLQUEST, [facility] [place] 05/28/2017 POLST 07/12/2014 2:25 PM TRISTEN MONSALVE, 07/12/2014 POLST 08/19/2012 3:55 PM POLST, AM Farhat CYR, 08/11/12 Healthcare Directive 04/30/2012 3:38 PM HO ME DNR REQUEST FORM, [facility], 04/16/12 * DNR (Latest Code Status on [...] Code Status Discussion: Not Discussed Care Teams National Account Representative Relationship Specialty Start Date End Date Onur Schreiber MD [address] [place] [address] PCP - General Family Practice 04/17/22 Miladis Long, RN [address] [address] Corrosion Control Fitter - [facility] [place] Registered Nurse 08/27/21 Perla Corrigan RN [address] [address] Corrosion Control Fitter - [facility] [place] Registered Nurse 08/27/21
--- OUTSIDE RECORDS SUMMARY | 2024-03-01 16:02 | XMS_ITS ---
Author Name Unknown Organization [facility] Address [address] [place] [address] Care Team Providers Care Radiation Control Technician Name Role Phone Unavailable Unavailable Unavailable Surgery Details Not on file Complications Check Surgery Details section. Procedure Estimated Blood Loss Check Surgery Details section. Procedure Findings Check Surgery Details section. Procedure Specimens Taken Check Surgery Details section.
== END 2024-02-23 01:37 | disposition home or self-care (01) ==
LOC: AMB 03-01 16:00
PROVIDERS: PCP Family Medicine; Visit Provider Family Medicine
DX: E11.65 Type 2 diabetes mellitus with hyperglycemia (principal); R11.2 Nausea with vomiting, unspecified
CPT/HCPCS: A0425; A0427

== ENCOUNTER 2024-02-23 02:02 | Inpatient (IN) | payer BC, SELFPAY ==
[2024-02-23] VITALS (8 sets, daily range): BP systolic 97–141; BP diastolic 48–71; PULSE 82–115; RESP 18–24; TEMP 36.3–37.6; O2SAT 90–95; BMI 19.5; BMI 20.2
--- OUTSIDE RECORDS SUMMARY | 2024-02-23 02:04 | XMS_ITS | Referral Summary ---
Author Name Unknown Organization [facility] Address [address] [place] [address] Care Team Providers Care Perl Programmer Name Role Phone Unavailable Primary Care Provider Unavailabl e Source Comments Patient records contain information from all sites at [facility]. For routine questions regarding patient records, call [phone] during business hours, M-F 8:00 AM - 5:00 PM Central Time. Record requests for emergency care only can be directed to [phone] at any time.[facility] Allergies Active Allergy Reactions Criticality Noted Date Comments Adhesive Tape-Silicones Other (see comments) Beclomethasone Other (see comments) 01/24/2010 Dicyclomine Shortness of breath (Reselect Reaction) 06/29/2013 Shortness of breath, abdominal pain and malaise noted. Doxycycline Other (see comments) 04/23/2006 Duloxetine GI intolerance 09/09/2012 Heart pain Erythromycin Other (see comments) 04/23/2006 Harper Cough 05/07/2022 Gabapentin Other (see comments) 04/23/2006 Latex Hives (Reselect Reaction) 01/21/2016 Pt states swelling, difficulty breathing, hives. Meclizine Other (see comments) 04/23/2006 Metformin Other (see comments) 04/23/2006 Metoclopramide Other (see comments) 04/23/2006 Nalbuphine Other (see comments) 04/23/2006 Nortriptyline Other (see comments) 11/10/2020 Extreme thirst. Omeprazole Nausea Only 04/19/2013 Prasterone (Dhea) Myalgia 02/18/2013 Propranolol Other (see comments) 04/23/2006 Raloxifene Other (see comments) 04/23/2006 Ramipril Other (see comments) 04/23/2006 Sulfa (Sulfonamide Antibiotics) Rash 12/30/2011 Tobramycin-Dexamethason e Other (see comments) 09/14/2010 Full body yeast infection Venlafaxine Analogues Other (see comments) 04/04 Medications Medication Sig Dispensed Refills Start Date End Date Status aspirin 81 mg chewable tablet Take 81 mg by mouth daily. 0 Active cholecalciferol (VITAMIN D3) 50 mcg (2,000 Unit) tablet Take 2 tablets by mouth at bedtime. 1 Active hydrocortisone (CORTEF) 5 mg tablet Take three tablets (15 mg) at 8 AM and 1.5 tablets (7.5 mg) at 5 PM. 1 Active Lactobacillus rhamnosus GG (CULTURELLE) 15 billion cell sprinkle capsule Take 1 capsule by mouth daily. Active levothyroxine (SYNTHROID, LEVOTHROID) 75 mcg tablet Take 1 tablet by mouth every morning before breakfast. 1 Active morphine (MS CONTIN) 15 mg ER tablet Take 1 tablet by mouth 3 (three) times a day. 6 AM, 2PM, 10 PM 1 Active co-enzyme Q-10 (CO Q-10) 100 mg capsule Take 100 mg by mouth daily. 1 Active VITAMIN B COMPLEX ORAL Take 1 tablet by mouth daily. 4 Active estradioL (ESTRACE) 0.1 mg/g (0.01%) vaginal cream Insert 2 g into the vagina 2 (two) times a week. On Fri/ Active olopatadine (PATADAY) 0.2 % ophthalmic solution Administer 1 drop into both eyes daily. Active oxyCODONE (ROXICODONE) 5 mg immediate release tablet Take 5 mg by mouth every 6 (six) hours as needed for pain. Active DME Ostomy suppliesIndicatio ns:Severe Sepsis With Septic Shock (HCC) DME Order 1 Unspecified 11 2 Active multivitamin-iron -XM-Ri-mtcesblt (THERAPEUTIC-M) 400 mcg (folic acid) per tablet Take 1 tablet by mouth daily. 30 tablet 2 Active sodium bicarbonate 650 mg tablet Take 650 mg by mouth 3 (three) times a day. Active simethicone (MYLICON) 80 mg chewable tablet Chew 80 mg 2 (two) times a day. Takes scheduled BID and PRN for gas Active ondansetron (ZOFRAN) 4 mg tablet Take 4 mg by mouth every 6 (six) hours as needed for nausea or vomiting. Active saliva stimulant (BIOTENE MOISTURIZING MOUTH) spray Apply 1 Application to the mouth or throat as needed (dry mouth). Active methylcellulose, with sugar, oral powder Take 1 Dose by mouth daily. Active fludrocortisone (FLORINEF) 0.1 mg tablet Take 0.1 mg by mouth daily. Active glucose 4 gram chewable tablet Chew 4 g as needed for low blood sugar. Active sertraline (ZOLOFT) 50 mg tablet Take 50 mg by mouth daily. Active insulin aspart U-100 (NovoLOG FlexPen) 100 unit/mL (3 mL) injection Inject 5-12 Units under the skin 3 (three) times a day with meals. Inject 5 units three times daily with meals plus: 180-219 mg/dL add 2 units, 220-259 mg/dL take 3 units, 260-299 mg/dL take 4 units, 300-339 mg/dL take 5 units, 340-379 mg/dL take 6 units, 380-399 mg/dL take 7 units, over 400 mg/dL call your healthcare provider. Dose may need to be adjusted. 15 mL 3 Active insulin glargine 100 unit/mL (3 mL) injection Inject 12 Units under the skin every evening. DO NOT HOLD LANTUS. PATIENT HAS TYPE 1 DIABETES. Dose may need to be adjusted. 15 mL 3 Active furosemide (LASIX) 20 mg tablet Take 0.5 tablets (10 mg total) by mouth daily. Hold until PCP follow up 3 Active acetaminophen (TYLENOL) 500 mg tablet Take 2 tablets (1,000 mg total) by mouth 4 (four) times a day as needed for mild pain or score 1-3 of 10. 3 Active loperamide (IMODIUM A-D) 1 mg/7.5 mL liquid Take 30 mL (4 mg total) by mouth 4 (four) times a day. 3 Active metoprolol tartrate (LOPRESSOR) 25 mg tablet Take 0.5 tablets (12.5 mg total) by mouth 2 (two) times a day. 3 Active psyllium, with aspartame, (METAMUCIL) 3.4 gram packet Take 1 packet by mouth 3 (three) times a day. 3 Active amLODIPine (NORVASC) 2.5 mg tablet Take 2.5 mg by mouth daily. 1 05/13/20 22 Discontinued lisinopriL (PRINIVIL,ZESTRIL ) 5 mg tablet Take 1 tablet by mouth daily. 0 05/13/20 22 Discontinued Active Problems Problem Noted Date Diagnosed Date Malnutrition Protein-Calorie Unspecified 023 Ileostomy Status 03/03/2023 Hyponatremia 03/03/2023 Retention Urinary 05/13/2022 Anemia Posthemorrhagic Acute (Blood Loss Anemia) 05/13/2022 Gastroesophageal Reflux Disease 05/13/2022 Gastroparesis 05/13/2022 Fracture Pelvis Closed Initial 05/02/2022 Diabetes Mellitus Type 1 Wit h Diabetic Chronic Kidney Disease 05/02/2022 Atherosclerotic Heart Diseas e Of [place] Coronary Artery Without Angina Pectoris 05/02/2022 Hyperlipidemia 05/02/2022 Hypothyroidism On Replacement 05/02/2022 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 Appendectomy Status Post 05/02/2022 Cholecystectomy Status Post 05/02/2022 Constipation 05/02/2022 Resolved Problems Problem Noted Date Diagnosed Date Resolved Date Hypovolemic Shock 03/04/2023 03/06/2023 Hyperkalemia 03/03/2023 03/05/2023 Failure Renal Acute (Acute Kidney Injury) 03/03/2023 03/06/2023 Diabetes Mellitus Type 1 Wit h Ketoacidosis Without Coma 03/03/2023 03/04/2023 Hypomagnesemia 05/13/2022 03/06/2023 Severe Sepsis With Septic Shock 05/02/2022 03/03/2023 Obstruction Intestinal 05/02/202203/03 Social History Tobacco Use Types Packs/Day Years Used Date Smoking Tobacco: Never Smokeless Tobacco: Never Nutrition Answer Date Recorded Nutrition: EVOO Fat Source Unknown 05/02 Nutrition: Servings of Fruits/Vegetables per Day Not on file 05/02/2022 Dental Answer Date Recorded Dental: Regular Dentist Unknown 05/02/20 22 Sex and Gender Information Value Date Recorded Sex Assigned at Not on file Gender Identity Not on file Sexual Orientation Not on file Last Filed Vital Signs Vital Sign Reading Time Taken Comments Blood Pressure 134/39 03/17/2023 1:33 PM CDT Pulse 97 03/17/2023 1:33 PM CDT Temperature 36.8 ??C (98.2 ??F) 03/17/2023 1:33 PM CD T Respiratory Rate 15 03/17/2023 1:33 PM CDT Oxygen Saturation 97% 03/17/2023 1:33 PM CDT Inhaled Oxygen Concentration - - Weight 47.1 kg (103 lb 13.4 oz) 023 12:01 AM CDT Height 151 cm (4' 11.45) 03/05/2023 1:34 PM CDT Body Mass Index 20.66 03/05/2023 1:34 PM CDT Plan of Treatment Not on file Procedures Procedure Name Priority Date/Time Associated Diagnosis Comments EXTI BASIC METABOLIC PANEL, S/P Routine 01/06/2024 7:36 AM RFID TECHNICIAN HEMOGLOBIN A1C, B STAT 03/03/2023 6:2 8 PM CDT from Last 3 Months or Most Recently Relevant to Health Maintenance Results * (ABNORMAL) Hemoglobin A1c (03/03/2023 6:28 PM CDT) Hemoglobin A1c, B 10.5(H) 4.0 - 5.6 % 03/03/2023 7:00 PM CDT DTL Comment: Hemoglobin A1c values greater than or equal to 6.5 percent are diagnostic for diabetes mellitus. ??Diagnosis should be confirmed by repeat testing. ??In diabetic patients, HbA1c goals should be discussed with healthcare provider. Blood (Blood, Venous) 03/03/2023 6:28 PM CDT 03/03/2023 6:49 PM CDT Siddhartha Mata M.D., M.B.A. LAB BLOOD ADD-ON [facility] [address] [place] [address], [place] DTL [facility] [address] [place] [address] from Last 3 Months or Most Recently Relevant to Health Maintenance Advance Directives For more information, please contact: [phone] Documents on File Type Date Recorded Patient Senior Oracle Database Administrator Expl anation Advance Directives 03/10/2023 10:42 AM Gianna cortez HCPOA/ADVOCATE/AGENT/REPR ESENTATIVE/SURROGATE Advance Directives 03/03/2023 11:01 PM POLS T/MOLST * DNR/DNI (Latest Code Status on File) Date Activated Date Inactivated Comments 03/03/2023 7:22 PM 03/17/2023 4:10 PM * DNR Date Activated Date Inactivated Comments 03/03/2023 5:44 PM 03/03/2023 7:22 PM * Full Code Date Activated Date Inactivated Comments 03/03/2023 5:24 PM 03/03/2023 5:44 PM Question Answer Comments Full Code: Not Discussed Due to: Patient does not have the capaci ty * Full Code Date Activated Date Inactivated Comments 05/03/2022 2:22 AM 05/13/2022 4:01 PM Question Answer Comments Full Code: Not Discussed Due to: Patient does not have the capaci ty * Full Code Date Activated Date Inactivated Comments 05/03/2022 12:01 AM 05/03/2022 2:22 AM Question Answer Comments Full Code: Discussed during surgery Healthcare Agents on File Name Relationship Healthcare Agent Relationship Communication Gianna [place] Daughter Health Care Agent
--- OUTSIDE RECORDS SUMMARY | 2024-02-23 02:04 | XMS_ITS ---
Author Name Unknown Organization [facility] Address [address] [place] [address] Care Team Providers Care Binder Lockstitch Name Role Phone Unavailable Unavailable Unavailable Surgery Details Not on file Complications Check Surgery Details section. Procedure Estimated Blood Loss Check Surgery Details section. Procedure Findings Check Surgery Details section. Procedure Specimens Taken Check Surgery Details section.
--- OUTSIDE RECORDS SUMMARY | 2024-02-23 02:04 | XMS_ITS | Clinical Summary ---
Author Name Unknown Organization [facility] Address [address] [place] [address] Care Team Providers Care Melangeur Operator Name Role Phone Unavailable Primary Care Provider Unavailabl e Source Comments Patient records contain information from all sites at [facility]. For routine questions regarding patient records, call [phone] during business hours, M-F 8:00 AM - 5:00 PM Central Time. Record requests for emergency care only can be directed to [phone] at any time.[facility] Allergies Active Allergy Reactions Criticality Noted Date [...] Order 1 Unspecified 11 2 Active multivitamin-iron -[id number]-Nq-tbczapzz (THERAPEUTIC-M) 400 mcg (folic acid) per tablet [...] Disease 05/02/2022 Atherosclerotic Heart Diseas e Of [place] Coronary Artery Without Angina Pectoris 05/02/2022 Hyperlipidemia [...] 03/05/2023 1:34 PM CDT Plan of Treatment Health Maintenance Due Date Last Done Comments Diabetic Office Visit with F oot Exam 1937 Dilated Eye Exam 1937 Generalized Anxiety (LUCIANA-7) 1937 Urine Albumin 1937 Zoster Vaccines (1 of 2) 1987 Controlled Substance Agreement 05/03/2022 Controlled Substance Monitor ing (PHQ-9) 05/03/2022 Opioid Risk Tool (ORT) 05/03/2022 PEG assessment for Opioid therapy 05/03/2022 Opioid Use Disorder (OUD) Screening 05/03/2023 Hemoglobin A1C 06/03/2023 03/03/2023, 05/02/2022 Depression Screening (Annual PHQ-2) 11/03/2023 Fall Risk Screen (Annual) 11/03/2023 COVID-19 Vaccine (2022-12 4 season) 2023 08/26/2023, 06/11/2023, 08/30/2022, Additional history exists Controlled Substance Monitoring 03/03/2024 Creatinine Level (Kidney Fun ction Test) 01/05/2025 01/06/2024, 12/30/2023, 11/04/2023, Additional history exists Potassium Level 01/05/2025 01/06/2024, 12/05, 12/23/2023, Additional history exists Sodium Level 01/05/2025 01/06/2024, 12/05, 12/23/2023, Additional history exists DTaP,Tdap,and Td Vaccines (2 - Td or Tdap) 06/01/2031 06/01/2021, 05/11/2010 Pneumococcal vaccine (65+ years) Completed 11/01/2015, 10/23/2007, 09/03/1999 Influenza Vaccine Completed 08/26/2023, , 08/03/2021, Additional history exists Procedures Procedure Name Priority Date/Time Associated Diagnosis Comments EXTI BASIC METABOLIC PANEL, S/P Routine 01/06/2024 7:36 AM AIR CREW OFFICER HEMOGLOBIN A1C, B STAT 03/03/2023 6:2 8 [...] Siddhartha Mata M.D., M.B.A. LAB BLOOD ADD-ON [facility] [address] [place] [address], [place] DTL [facility] [address] [place] [address] from Last 3 Months or Most Recently Relevant to Health Maintenance Advance Directives For more information, please contact: [phone] Documents on File Type Date Recorded Patient Reject Opener And Filler Expl anation Advance Directives 03/10/2023 10:42 AM [...]
--- OUTSIDE RECORDS SUMMARY | 2024-02-23 02:05 | XMS_ITS | Clinical Summary ---
Author Name Unknown Organization [facility] Address [place], [place] [address] Care Team Providers Care Data Analyst Name Role Phone Mercedes, Miladis Zavala RN Unavailable Perla Corrigan RN Unavailable [phone] Onur Schreiber MD Primary Care Provider Narcisa appiah Allergies Active Allergy Reactions Criticality Noted Date Comments Adhesive Tape-Silicones *Unknown 10/30/2018 Beclomethasone Hypoglycemia 01/24/2010 Dicyclomine Dyspnea 06/29/2013 Shortness of breath, abdominal pain and malaise noted. Bisacodyl 04/23/2006 Duloxetine Vomiting 09/09/2012 Heart pain Lactase *Unknown 10/30/2018 Prasterone (Dhea) Arthralgia 02/18/2013 Diclofenac 04/23/2006 Doxycycline 04/23/2006 Erythromycin 04/23/2006 Gabapentin 04/23/2006 Latex Hives 01/21/2016 Pt states swelling, difficulty breathing, hives. Meclizine 04/23/2006 Metformin 04/23/2006 Metoclopramide 04/23/2006 Nalbuphine 04/23/2006 Nortriptyline Other - Describe In Comment Field 11/10/2020 Extreme thirst. Omeprazole Nausea Only 04/19/2013 Propranolol Syncope 04/23/2006 Raloxifene 04/23/2006 Ramipril 04/23/2006 Nabumetone *Unknown 10/30/2018 Sulfa (Sulfonamide Antibiotics) Rash 12/30/2011 Tobramycin-Dexamethason e 09/14/2010 Full body yeast infection Sulfamethoxazole-Trimet hoprim Rash 12/30/2011 Venlafaxine Analogues 04/23/2006 Medications Medication Sig Dispensed Refills Start Date End Date Status Lactobacillus rhamnosus GG (CULTURELLE) 15 billion cell capsule Take 1 capsule by mouth once daily at 8am Active ASSURE MARTI 28 gauge miscIndications:Typ e 1 diabetes mellitus with hypoglycemia and without coma (HC) USE THREE TIMES A DAY DIRECTED 300 Each 2 9 Active loperamide (IMODIUM) 2 mg capsuleIndications: Irritable bowel syndrome, unspecified type TAKE ONE CAPSULE BY MOUTH TWICE DAILY IF NEEDED FOR DIARRHEA 180 capsule 9 Active Additional Information Patient taking differently: 2 mg Oral QID, Informant: [facility], Reported on 08/31/2023 Kionicfcacwfr-Ocr-N A-Ginkgo (ONE DAILY WOMEN 50 PLUS) 400-120 mcg-mg tabIndications:Oste oporosis, unspecified osteoporosis type, unspecified pathological fracture presence Take by mouth. 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 25 tablet 2 0 Active glucose 4 gram chewable tabletIndications:T ype 1 diabetes mellitus with hypoglycemia and without coma (HC) Take 1 tablet by mouth each time if needed for Blood Gluc < Specify. Wait until they call for this. 150 tablet 6 0 Active blood sugar diagnostic (GLUCOCARD VITAL SENSOR) stripIndications:Ty pe 1 diabetes mellitus with hypoglycemia and without coma (HC) Dispense item covered by pt ins. E10.65 IDDM type I, uncontrolled - Test 3 times/day.TEST THREE TIMES A DAY 300 Strip 3 0 Active miscellaneous medical supply miscIndications:Com pression fracture of L2 vertebra with delayed healing As directed. New mattress for her hospital bed. Current mattress is from 2013 and is worn out. 1 Units 0 Active ULTICARE PEN NEEDLE 29 gauge x 1/2Indications:Typ e 1 diabetes mellitus with hypoglycemia and without coma (HC) USE 3-5 TIMES DAILY PER MD INSTRUCTIONS 500 Each 3 0 Active aspirin (ECOTRIN) 81 mg enteric coated tabletIndications:C oronary artery disease involving benton coronary artery of benton heart with unstable angina pectoris (HC) TAKE ONE TABLET DAILY WITH A MEAL AT 8PM 90 tablet 2 0 Active Additional Information Patient taking differently: 81 mgOralDAILY EVENING, Informant: Shelter [facility], Reported on 08/31/2023 coenzyme q10 100 mg capIndications:Athe rosclerosis of benton coronary artery of benton heart without angina pectoris Take 1 capsule by mouth once daily. Take 1 capsule by mouth daily at 8am 90 capsule 3 1 Active cholecalciferol, Vitamin D3, 2,000 unit tabletIndications:C ompression fracture of L1 lumbar vertebra, sequela TAKE TWO TABLETS DAILY AT 8PM 180 tablet 3 1 Active Additional Information Patient taking differently: 4,000 unitOralDAILY EVENING, Informant: Shelter [facility], Reported on 08/31/2023 levothyroxine (SYNTHROID) 75 mcg tabletIndications:A cquired hypothyroidism TAKE ONE TABLET DAILY BEFORE BREAKFAST AT 8AM 90 tablet 1 Active Additional Information Patient taking differently: 75 mcgOralBEFORE BREAKFAST, Informant: Shelter [facility], Reported on 08/31/2023 estradioL (ESTRACE) 0.01% (0.1 mg/g) vaginal creamIndications:Va ginal atrophy 1 gm intravaginally every Friday and 3 Active olopatadine (PATADAY) 0.2 % ophthalmic solutionIndications :Environmental allergies Place 1 drop into both eyes once daily at 8am 0 3 Active ondansetron (ZOFRAN) 4 mg tabletIndications:N ausea Take 1 Tablet (4 mg) by mouth every 4 hours if needed for Nausea/Vomiting. 3 Active psyllium 0.52 gram capsuleIndications: High output ileostomy (HC) Take 4 Capsules by mouth three times daily. 0 3 Active simethicone chewable (MYLANTA GAS RELIEF; GAS X) 80 mg chewable tabletIndications:H igh output ileostomy (HC) Max dose: 500 mg per 24 hrs 0 3 Active sodium chloride 1,000 mg soluble tabletIndications:H yponatremia Take 1,000 mg by mouth three times daily 3 Active vitamin B complex (B Complex 1) tabletIndications:P reventive measure Take 1 Tablet by mouth once daily. 0 3 Active sodium bicarbonate 650 mg tabletIndications:R enal tubular acidosis, type 4 Take 1 Tablet (650 mg) by mouth three times daily. 0 3 Active metoprolol tartrate (LOPRESSOR) 25 mg tabletIndications:C oronary artery disease involving benton coronary artery of benton heart with unstable angina pectoris (HC) Take 0.5 Tablets (12.5 mg) by mouth two times daily. 0 3 Active fludrocortisone (FLORINEF) 0.1 mg tabletIndications:A drenal insufficiency (Patillas's disease) (HC) Take 3 Tablets (0.3 mg) by mouth once daily. 90 Tablet 2 4 Active Glucagon Emergency Kit, human, 1 mg injection 3 Active loperamide (IMODIUM) 2 mg capsule Take 4 mg by mouth each time if needed. Active acetaminophen (TYLENOL) 325 mg tablet Take 1,000 mg by mouth each time if needed. Active diphenoxylate-atrop ine, 2.5-0.025 mg, (LOMOTIL) 2.5-0.025 mg tablet Take 2 Tablets by mouth four times daily. 4 Active sertraline (ZOLOFT) 50 mg tabletIndications:A nxiety state Take 1 Tablet (50 mg) by mouth once daily. 4 Active insulin glargine, U-100, 100 unit/mL (3 mL) penIndications:Type 1 diabetes mellitus with complication (HC) 4 units QAM and 5 units qPM 4 Active insulin aspart, U-100, (NovoLOG Flexpen U-100 Insulin) 100 unit/mL (3 mL) penIndications:Type 1 diabetes mellitus with complication (HC) 11 units with breakfast, 7 units with lunch and 7 units with evening meal. Plus sliding scale based upon pre-meal blood sugar. Blood sugar 201 - 300 give 2 units . Blood sugar 301 - 400 give 3 units. Blood sugar 401 - 500 give 4 units. Blood sugar 501 or more give 5 units 4 Active predniSONE 5 mg/5 mL solutionIndications :Adrenal insufficiency (Patillas's disease) (HC) Take 8 mL (8 mg) by mouth once daily with a meal. 240 mL 1 4 Active hydrocortisone (CORTEF) 5 mg tabletIndications:A drenal insufficiency (Patillas's disease) (HC) Hydrocortisone 20 mg in the morning and 15 mg in the afternoon 210 Tablet 2 4 02/19/20 24 Discontinu ed(*Medica tion adjustment ) insulin aspart, U-100, (NovoLOG Flexpen U-100 Insulin) 100 unit/mL (3 mL) penIndications:Type 1 diabetes mellitus with complication (HC) 10 units with breakfast, 7 units with lunch and 7 units with evening meal. Plus sliding scale based upon pre-meal blood sugar. Blood sugar 201 - 300 give 2 units . Blood sugar 301 - 400 give 3 units. Blood sugar 401 - 500 give 4 units. Blood sugar 501 or more give 5 units 15 mL 4 02/19/20 24 Discontinu ed(*Medica tion adjustment ) insulin glargine, U-100, 100 unit/mL (3 mL) penIndications:Type 1 diabetes mellitus with complication (HC) Inject 9 units subcutaneous every morning. 4 01/29/20 24 Discontinu ed(*Medica tion adjustment ) insulin glargine, U-100, 100 unit/mL (3 mL) penIndications:Type 1 diabetes mellitus with complication (HC) Inject 4 units subcutaneous two times daily. 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 Call [phone] right after to donate. Essential hypertension 02/19/2017 Type 1 diabetes mellitus with complication 02/19 Overview: She developed Diabetes in 1997. She was diagnosed with Type [address] 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 Zee of Cardiology informed her in 03/2017 that there was no evidence to keep her on the Plavix. She told him she wanted to stay on this and Dr. Zee okayed this. Hyponatremia 01/21/2016 Anxiety state, unspecified 07/26/2015 Arthritis 01/05/2014 Diabetic gastroparesis 08/04/2013 Pain medication agreement 10/21/2012 Last Assessment & Plan: Signed and scanned 09/2012. GIULIA JEFFN, RN 2:01 PM 10/25/2014 Compression fracture of L1 & L3 lumbar vertebra 05/1406/19/2012 Adrenal insufficiency (Patillas's disease) 2011 Renal tubular acidosis, type 4 12/22/2011 Collapse of external ear canal 02/15/2009 Irritable bowel syndrome 02/05/2008 Osteoporosis 02/16/2007 Overview: Patient has been on Evista but she would not tolerate it. She does not want to go on Aledronate. Patient reports that Dr. So thought she would not tolerate Prolia but he would prescribe it if she wanted to try it. Patient looked into this and the side effects and does not want to take this. Discussed Reclast infusions with her today 10/06/2020 and she refused. Cortical senile cataract 02/16/2007 Unspecified tinnitus 02/16/2007 HYPERCHOLESTEROLEMIA Asthma Resolved Problems Problem Noted Date Diagnosed Date Resolved Date HTN (hypertension) 07/08/2014 7 Hyposmolality and/or hyponatremia 12/20/2011 03/25/2012 Hyperkalemia 12/20/2011 03/25/2012 Hypertension 09/13/2008 05/11/2010 Encounters Date Type Department Care Team Description 02/20/2024 Lab Requisition [facility] [phone] Onur Schreiber MD 02/19/2024 Telephone [facility] [address] [place] [phone] Vivian Newman MD Medication Management (predniSONE 5 mg/5 mL solution ) 02/09/2024 Lab Requisition [facility] [phone] Onur Schreiber MD 02/09/2024 Telephone [facility] [address] [place] [address] Vivian Newman MD Results 01/28/2024 Telephone [facility] [address] [place] [address] Vivian Newman MD Diabetes (Blood Sugar Log, Lab Results, and MAR) 01/26/2024 Lab Requisition [facility] [phone] Clarissa Grimes PEST CONTROL SERVICE REPRESENTATIVE 01/19/2024 Telephone [facility] [address] [place] [phone] Vivian Newman MD Medication Management 01/19/2024 Telephone [facility], [facility] [address] [place], [place] [phone] Vivian Newman MD Diabetes 01/15/2024 Orders Only [facility] Scanner 1 scan: (1-Ord) [facility], MULTIPLE LAB RESULTS, 01/15/2024 01/15/2024 Orders Only [facility] Scanner 1 scan: (1-Ord) [facility], MULTIPLE LABS, 01/15/2024 01/15/2024 Telephone [facility], [facility] [address] [place] [phone] Vivian Newman MD Results 01/14/2024 2:00 PM CDT Phone Office Visit [facility] [address] [place] [phone] Vivian Newman MD Phone Visit; Follow Up 01/14/2024 Lab Requisition [facility] [phone] Onur Schreiber MD 01/06/2024 Telephone [facility] [address] [place] [phone] Vivian Newman MD Results 01/05/2024 Lab Requisition [facility] [phone] Clarissa Grimes, PEST CONTROL SERVICE REPRESENTATIVE 12/29/2023 Lab Requisition [facility] [phone] Clarissa Grimes, PEST CONTROL SERVICE REPRESENTATIVE 12/18/2023 Lab Requisition [facility] [phone] Onur Schreiber MD 12/16/2023 Telephone [facility] [address] [place] [phone] Vivian Newman MD Consult 12/15/2023 2:30 PM MANAGER INCOME TAX Office Visit [facility] [address] [place] [phone] Vivian Newman MD Consult (Type 1 DM, Patillas Disease/Referred by Onur Schreiber MD) 12/15/2023 Orders Only [facility] Scanner 1 scan: (1-Ord) [facility], MULTIPLE LABS, 12/15/2023 12/15/2023 Travel 12/15/2023 Telephone [facility] [address] [place] [phone] Vivian Newman MD Appointment 12/12/2023 Orders Only [facility] Scanner 1 scan: (1-Ord) [facility], SODIUM, 12/12/2023 12/09/2023 Orders Only [facility] Scanner 1 scan: (1-Ord) [facility], RESULTS, 12/09/2023 12/09/2023 Orders Only [facility] Scanner 1 scan: (1-Ord) [facility], MULTIPLE LABS, 12/09/2023 11/26/2023 Lab Requisition [facility] [phone] Onur Schreiber MD from Last 3 Months Immunizations Name Administration Dates Next Due COVID-19 vaccine (Moderna 100mcg/0.5mL) PF, MDV 12/14/2020,11/16/2020 Influenza, High-dose Inactivated 018,08/25/2017,08/23/2016,2014,09/01/2014 Influenza, High-dose Quadriv alent Inactivated 08/26/2023,08/24/2020 Influenza, IIV3 (Age 6-35 mos) 08/07/2011 Influenza, IIV3 (Age >=3 years) 08/23/20 13,08/04/2012,08/07/2011,2009,08/31/2009,08/30/2008,08/13/2007,1 Influenza, IIV4 (=>6mos) MDV 08/25/2014 Influenza, Inactivated IIV3 (Age 65+ Years) Preserv Free 08/06/2019 Influenza, Injectable, Mdck, Quadrivalent, W/preservative 07/24/2022,08/03/2021 Pneumococcal Poly,23-Valent (Pneumovax) 10/23/2007,09/03/1999 Pneumococcal conj 13-Valent (Prevnar 13) 11/01/2015 Td (Age >=7 Years) 07/03/2000 Td, Preservative Free (age > = 7 Years) 05/11/2010 Tdap 06/01/2021 Family History Medical History Relation Name Comments Alcohol/Drug Father Heart Disease Father heart attack d ied of OR at 62 Other Maternal Grandmother at 99.5 after a hip fracture Stroke Mother at 94 afte r a stroke with a hip fx Cancer-breast Other niece Stroke Sister Relation Name Status Comments Father Maternal Grandmother Mother Other Sister Social History Tobacco Use Types Packs/Day Years Used Date Smoking Tobacco: Never Smokeless Tobacco: Never Tobacco Cessation:Counseling Given: Yes Alcohol Use Standard Drinks/Week Comments No 0 (1 standard drink = 0.6 oz pur e alcohol) PHQ-2 Answer Date Recorded PHQ-2 TOTAL SCORE 0 07/03/2020 Social Connections Answer Date Recorded Frequency of Communication with Friends and Fami ly 0 08/31/2023 Financial Resource Strain Answer Date R ecorded Difficulty of Paying Living Expenses 3 08/31/2023 Difficulty of Paying Living Expenses Not on file 08/31/2023 Food Insecurity Answer Date Recorded Worried About Running Out of Food in the Last Ye ar 1 08/31/2023 Transportation Needs Answer Date Record ed Lack of Transportation (Medical) 1 08/31/2023 Housing Stability Answer Date Recorded Unable to Pay for Housing in the Last Year 1 08/31/2023 Sex and Gender Information Value Date Recorded Sex Assigned at Not on file Gender Identity Not on file Sexual Orientation Not on file Obstetrics History Last Filed Vital Signs Vital Sign Reading Time Taken Comments Blood Pressure 115/60 12/15/2023 2:20 PM MANAGER INCOME TAX Pulse 84 12/15/2023 2:20 PM MANAGER INCOME TAX Temperature 36.9 ??C (98.5 ??F) 09/04/2023 1:15 AM CD T Respiratory Rate 14 09/04/2023 1:15 AM CDT Oxygen Saturation 95% 09/04/2023 1:15 AM CDT Inhaled Oxygen Concentration - - Weight 46.2 kg (101 lb 12.8 oz) 12/15/2023 2:20 PM MANAGER INCOME TAX Height 157.5 cm (5' 2) 08/31/2023 2:35 AM CDT Body Mass Index 18.62 08/31/2023 2:35 AM CDT Plan of Treatment Upcoming Encounters Date Type Department Care Team (Late st Contact Info) Description 04/01/2024 3:00 PM CDT Office Visit [facility] [address] [place] [phone] Vivian Newman MD [address] [place] [address] Health Maintenance Due Date Last Done Comments Zoster (shingles) series for age 50+ (1 of 2) 1987 Medicare Wellness for age 65+ 01/09/2014 01/08/2013 Depression screening for age 12+ 07/07/2021 07/07/2020, 07/04/2020, 07/03/2020, Additional history exists BMI (ht and wt on same day) for age 18+ 06/07/2022 06/07/2021, 11/10/2020, 10/06/2020, Additional history exists Influenza for age 65+ 07/04/2024 08/26/2023 , 07/24/2022, 08/03/2021, Additional history exists Tetanus booster 06/01/2031 06/01/2021, 07/0 07/2010, 07/03/2000 DEXA/DXA scan for age 65+ Addressed 03/12/2012 (Dec lined) Overridden with the intention of not completing the topic Pneumococcal series for age 65+ Completed 11/01/2015, 10/23/2007, 09/03/1999 Tdap Completed 06/01/2021 COVID-19 vaccine series Completed 08/26/20, 06/11/2023, 08/30/2022, Additional history exists Procedures Procedure Name Priority Date/Time Associated Diagnosis Comments BASIC METABOLIC PANEL Routine 02/10/2024 7:44 AM CDT Hyperkalemia Hypo-osmolality and hyponatremia BASIC METABOLIC PANEL Routine 01/27/2024 7:50 AM CDT Hypo-osmolality and hyponatremia SCAN-LABORATORY REPORT 01/15/2024 12:00 AM CDT SCAN-LABORATORY REPORT 01/15/2024 12:00 AM CDT BASIC METABOLIC PANEL Routine 01/06/2024 7:36 AM MANAGER INCOME TAX Primary adrenocortical insufficiency (HC) BASIC METABOLIC PANEL Routine 12/30/2023 7:39 AM MANAGER INCOME TAX Hypo-osmolality and hyponatremia ELECTROLYTE PANEL Routine 12/23/2023 7:2 2 AM MANAGER INCOME TAX Addisonian crisis (HC) SCAN-LABORATORY REPORT 12/15/2023 12:00 AM MANAGER INCOME TAX SCAN-LABORATORY REPORT 12/12/2023 12:00 AM MANAGER INCOME TAX SCAN-LABORATORY REPORT 12/09/2023 12:00 AM MANAGER INCOME TAX SCAN-LABORATORY REPORT 12/09/2023 12:00 AM MANAGER INCOME TAX from Last 3 Months Results * (ABNORMAL) BASIC METABOLIC PANEL (02/10/2024 7:44 AM CDT) Only the most recent of4 resultswithin the time period is included. SODIUM 130(L) 136 - 145 mmol/L 02/10/2024 9:36 AM [facility] POTASSIUM 5.4(H) 3.5 - 5.1 mmol/L 02/10/2024 9:36 AM [facility] CHLORIDE 97(L) 98 - 107 mmol/L 02/10/2024 9:36 AM [facility] CO2,TOTAL 24 22 - 29 mmol/L 02/10/2024 9:36 AM [facility] ANION GAP 9 5 - 18 02/10/2024 9:36 AM [facility] GLUCOSE 232(H) 70 - 99 mg/dL 02/10/2024 9:36 AM [facility] CALCIUM 9.8 8.8 - 10.2 mg/dL 02/10/2024 9:36 AM [facility] BUN 28(H) 8 - 23 mg/dL 02/10/2024 9:36 AM [facility] CREATININE 1.16(H) 0.50 - 0.90 mg/dL 02/10/2024 9:36 AM [facility] BUN/CREAT RATIO 24(H) 10 - 20 9:36 AM [facility] eGFR 46(L) >90 mL/min/1.7 3m2 02/10/2024 9:36 AM [facility] Comment:As of 2022, eG FR is calculated by the CKD-EPI creatinine equation without race adjustment. ??eGFR can be influenced by muscle mass, exercise, and diet. ??The reported eGFR is an estimation only and is only applicable if the renal function is stable. Blood BLOOD SPECIMEN / Unknown Butterfly / Unknown 02/10/2024 7:44 AM CDT 02/10/2024 9:01 AM CDT Onur Schreiber MD CHEMISTRY Performing Organization Address [facility] de Phone Number [facility] [address] [place] [address] * SCAN-LABORATORY REPORT (01/15/2024 12:00 AM CDT) Only the most recent of6 resultswithin the time period is included. Scanner OTHER * (ABNORMAL) ELECTROLYTE PANEL (12/23/2023 7:22 AM MANAGER INCOME TAX) SODIUM 130(L) 136 - 145 mmol/L 12/23/2023 8:37 AM [facility] POTASSIUM 5.2(H) 3.5 - 5.1 mmol/L 12/23/2023 8:37 AM [facility] CHLORIDE 96(L) 98 - 107 mmol/L 12/23/2023 8:37 AM [facility] CO2,TOTAL 23 22 - 29 mmol/L 12/23/2023 8:37 AM [facility] WITH [facility] ANION GAP 11 5 - 18 12/23/2023 8:37 AM [facility] Blood BLOOD SPECIMEN / Unknown Butterfly / Unknown 12/23/2023 7:22 AM MANAGER INCOME TAX 12/23/2023 8:11 AM MANAGER INCOME TAX Onur Schreiber MD CHEMISTRY Performing Organization Address [facility] de Phone Number [facility] [address] [place] [address] from Last 3 Months Advance Directives Documents on File Type Date Recorded Patient Geophysical Support Specialist Expl anation POLST 01/05/2018 11:42 AM TRISTEN DIAZD, 01/02/18 Healthcare Directive 06/02/2017 9:37 AM AN YVES CHENG 05/28/2017 POLST 07/12/2014 2:25 PM TRISTEN MONSALVE, 07/12/2014 POLST 08/19/2012 3:55 PM POLST, TOOTIE CYR, 08/11/12 Healthcare Directive 04/30/2012 3:38 PM HO DNR REQUEST FORM, [facility], 04/16/12 * DNR (Latest Code Status on File) Date Activated Date Inactivated Comments 08/31/2023 2:39 AM 09/04/2023 12:43 PM POLST revi ewed Question Answer Comments Code Status Discussion: Reviewed Preferences * Full Code Date Activated Date Inactivated Comments 01/21/2016 5:19 PM 01/22/2016 5:23 PM Patient is n ormally DNR/DNI, but she wants to be full code just this hospitalization. Question Answer Comments Code Status Discussion: Discussed * Full Code Date Activated Date Inactivated Comments 01/21/2016 4:35 PM 01/21/2016 5:19 PM Question Answer Comments Code Status Discussion: Not Discussed Care Teams Data Analyst Relationship Specialty Start Date End Date Onur Schreiber MD [address] [place] [place] [id number] PCP - General Family Practice 04/17/22 Miladis Long, RN [address] [id number] Shipper/Receiver - [facility] Registered Nurse 08/27/21 Perla Corrigan RN [address] [address] Shipper/Receiver - [facility] Registered Nurse 08/27/21
--- NOTE | 2024-02-23 02:30 | ED.GENADULT ---
HPI - General Adult General Chief complaint: Nausea/Vomiting Stated complaint: hyperglycemia Time Seen by Provider: 02/23/24 02:07 Source: patient and EMS Limitations: other (Dementia) History of Present Illness HPI narrative: 88-year-old female with type 1 diabetes, adrenal insufficiency and history of dementia presents to the emergency department for evaluation of nausea and vomiting. Patient is a poor historian. EMS reports that the vomiting started earlier today. Blood sugar reading high at [facility]. She states that she has not been given her insulin but she contradicts herself many times in my initial interview and does have a history of dementia, would not consider this necessarily reliable. I am not sure if she has had her typical steroids today or not either. She denies trying any anti nausea medicine or other interventions or her vomiting today. Denies fevers, denies abdominal pain. Denies chest pain or respiratory distress. Denies any new falls or injury or urinary changes. Accompanying paperwork shows that she lives at [facility] with, seems like it is the [facility]. She is uncertain what her blood sugar was this morning, unsure when she had her last insulin dosage. Past medical history notable for dementia, diabetes, adrenal insufficiency, chronic pain disorder, chronic diarrhea, gastroparesis, among others. Extensive medicine list reviewed. ROS notable for the GI symptoms and chronic issues as described above. I would not consider her particularly reliable as she contradicts herself several times in the interview. Review of systems attempted times 12 systems. Related Data Home Medications Medication Instructions Recorded Confirmed cholecalciferol (vitamin D3) 50 4,000 unit PO HS 05/02/22 11/30/23 mcg (2,000 unit) tablet coenzyme Q10 100 mg capsule 100 mg PO HS 05/02/22 11/30/23 estradiol 0.01% (0.1 mg/gram) 1 appful vaginal .MOTH@HS 05/02/22 11/30/23 vaginal cream hydrocortisone 5 mg tablet 10 - 15 mg PO BID 05/02/22 11/30/23 lactobacillus combination no.4 3 3,000 mmu cells PO DAILY 05/02/22 11/30/23 billion cell capsule (Probiotic) levothyroxine 75 mcg tablet 75 mcg PO DAILY 05/02/22 11/30/23 multivit-iron 18 mg-folic acid 400 1 tab PO DAILY 05/02/22 11/30/23 mcg-calcium 500 mg-minerals tablet (Women's One Daily) olopatadine 0.2 % eye drops 1 drp ophthalmic (eye) DAILY 05/02/22 11/30/23 vitamin B complex (Vitamins B 1 cap PO DAILY 05/02/22 11/30/23 Complex capsule) acetaminophen 500 mg capsule 1,000 mg PO TID PRN 05/28/22 11/30/23 ondansetron HCl 4 mg tablet 4 mg PO Q6H PRN 05/28/22 11/30/23 simethicone 80 mg chewable tablet 80 mg PO TID 05/28/22 11/30/23 aspirin 81 mg chewable tablet 81 mg PO HS 03/03/23 11/30/23 glucose 4 gram chewable tablet 4 g PO Q15M PRN 03/03/23 11/30/23 (Dex4 Glucose) sertraline 50 mg tablet 50 mg PO DAILY 03/03/23 11/30/23 loperamide 2 mg capsule 4 mg PO BID PRN 03/27/23 11/30/23 glucagon 1 mg solution for 1 mg IM ONCE PRN 09/19/23 11/30/23 injection (Glucagon Emergency Kit) insulin aspart U-100 100 unit/mL 5 sliding scale dose subcut 09/19/23 11/30/23 (3 mL) subcutaneous pen USEASDIRECTD insulin aspart U-100 100 unit/mL 7 - 10 unit subcut TIDWM 09/19/23 11/30/23 (3 mL) subcutaneous pen nitroglycerin 0.4 mg sublingual 0.4 mg sublingual Q5M PRN 09/19/23 11/30/23 tablet insulin glargine 100 unit/mL (3 6 unit subcut 11/30/23 11/30/23 mL) subcutaneous pen (Lantus Solostar U-100 Insulin) morphine 15 mg tablet,extended 15 mg PO TID 11/30/23 11/30/23 release Previous Rx's Medication Instructions Recorded sodium chloride 1,000 mg soluble 1,000 mg PO TIDWM 30 days #90 tabs 04/02/23 tablet diphenoxylate-atropine 2.5 2 tab PO QID #240 tabs 09/30/23 mg-0.025 mg tablet fludrocortisone 0.1 mg tablet 0.2 mg (2 x 0.1 mg) PO DAILY #60 09/30/23 tabs psyllium husk (with sugar) 3.4 1 tbsp PO TIDWM #1,045 grams 09/30/23 gram oral powder packet (Metamucil (with sugar)) sodium bicarbonate 650 mg tablet 1,300 mg (2 x 650 mg) PO TIDWM 09/30/23 #180 tabs Allergies Allergy/AdvReac Type Severity Reaction Status Date / Time adhesive tape Allergy Mild Rash Verified 11/30/23 03:03 diclofenac Allergy Unknown Verified 11/30/23 03:03 aspartame Allergy Verified 11/30/23 03:03 beclomethasone Allergy Verified 11/30/23 03:03 bisacodyl Allergy Verified 11/30/23 03:03 dexamethasone Allergy Verified 11/30/23 03:03 doxycycline Allergy Verified 11/30/23 03:03 erythromycin base Allergy Verified 11/30/23 03:03 gabapentin Allergy Verified 11/30/23 03:03 hydrochlorothiazide Allergy Verified 11/30/23 03:03 lactase [From Dairy Aid] Allergy Verified 11/30/23 03:03 meclizine Allergy Verified 11/30/23 03:03 metformin Allergy Verified 11/30/23 03:03 metoclopramide Allergy Verified 11/30/23 03:03 nabumetone [From Relafen] Allergy Verified 11/30/23 03:03 propranolol Allergy Verified 11/30/23 03:03 raloxifene Allergy Verified 11/30/23 03:03 ramipril Allergy Verified 11/30/23 03:03 tobramycin Allergy Verified 11/30/23 03:03 venlafaxine Allergy Verified 11/30/23 03:03 [facility] Medical History Acute cystitis without hematuria ?N30.00 - Acute cystitis without hematuria (ICD-10) Frailty syndrome in geriatric patient ?R54 - Age-related physical debility (ICD-10) Physical deconditioning ?R53.81 - Other malaise (ICD-10) Chronic hyponatremia ?E87.1 - Hypo-osmolality and hyponatremia (ICD-10) Low body weight due to inadequate caloric intake ?R63.6 - Underweight (ICD-10) Adult failure to thrive ?R62.7 - Adult failure to thrive (ICD-10) Weakness ?R53.1 - Weakness (ICD-10) Chronic pain ?G89.29 - Other chronic pain (ICD-10) Altered mental status ?R41.82 - Altered mental status, unspecified (ICD-10) Atrial fibrillation ?I48.91 - Unspecified atrial fibrillation (ICD-10) Diabetes mellitus type 1 (12/22/11) ?E10.9 - Type 1 diabetes mellitus without complications (ICD-10) Renal tubular acidosis, type 4 ?N25.89 - Other disorders resulting from impaired renal tubular function (ICD-10) Ileostomy in place ?Z93.2 - Ileostomy status (ICD-10) Unsteady gait ?R26.81 - Unsteadiness on feet (ICD-10) Polypharmacy ?Z79.899 - Other pile driving setter (current) drug therapy (ICD-10) Osteoporosis ?M81.0 - Age-related osteoporosis without current pathological fracture (ICD-10) Ketoacidosis due to diabetes mellitus (08/03/13) ?E11.10 - Type 2 diabetes mellitus with ketoacidosis without coma (ICD-10) Irritable bowel syndrome ?K58.9 - Irritable bowel syndrome without diarrhea (ICD-10) Falls (03/31/12) ?W19.XXXA - Unspecified fall, initial encounter (ICD-10) Epistaxis ?R04.0 - Epistaxis (ICD-10) Diverticulitis of large intestine ?K57.32 - Diverticulitis of large intestine without perforation or abscess without bleeding (ICD-10) Diabetic gastroparesis (08/03/13) ?E11.43 - Type 2 diabetes mellitus with diabetic autonomic (poly)neuropathy (ICD-10) ?K31.84 - Gastroparesis (ICD-10) Coronary artery disease ?I25.10 - Atherosclerotic heart disease of [place] coronary artery without angina pectoris (ICD-10) Concussion (03/29/12) ?S06.0XAA - Concussion with loss of consciousness status unknown, initial encounter (ICD-10) Compression fracture of L2 vertebra with delayed healing ?S32.020G - Wedge compression fracture of second lumbar vertebra, subsequent encounter for fracture with delayed healing (ICD-10) Closed head injury ?S09.90XA - Unspecified injury of head, initial encounter (ICD-10) Closed fracture of superior ramus of right pubis ?S32.511A - Fracture of superior rim of right pubis, initial encounter for closed fracture (ICD-10) Closed fracture of left side of symphysis pubis ?S32.592A - Other specified fracture of left pubis, initial encounter for closed fracture (ICD-10) Closed fracture of left inferior pubic ramus ?S32.592A - Other specified fracture of left pubis, initial encounter for closed fracture (ICD-10) Chronic constipation (07/02/13) ?K59.09 - Other constipation (ICD-10) Anxiety disorder ?F41.9 - Anxiety disorder, unspecified (ICD-10) [place]'s disease ?E27.1 - Primary adrenocortical insufficiency (ICD-10) Seizure ?R56.9 - Unspecified convulsions (ICD-10) Hypothyroidism ?E03.9 - Hypothyroidism, unspecified (ICD-10) Hyponatremia (12/22/11) ?E87.1 - Hypo-osmolality and hyponatremia (ICD-10) Hyperkalemia (12/22/11) ?E87.5 - Hyperkalemia (ICD-10) Gastroesophageal reflux disease ?K21.9 - Gastro-esophageal reflux disease without esophagitis (ICD-10) Chronic pain ?G89.29 - Other chronic pain (ICD-10) Asthma ?J45.909 - Unspecified asthma, uncomplicated (ICD-10) Acute adrenal crisis ?E27.2 - Addisonian crisis (ICD-10) POLST (Physician Orders for Life-Sustaining Treatment) ?Z78.9 - Other specified health status (ICD-10) Health care directive on file ?Z78.9 - Other specified health status (ICD-10) High output ileostomy ?R19.8 - Other specified symptoms and signs involving the digestive system and abdomen (ICD-10) ?Z93.2 - Ileostomy status (ICD-10) Hyperkalemia ?E87.5 - Hyperkalemia (ICD-10) Abnormal liver enzymes ?R74.8 - Abnormal levels of other serum enzymes (ICD-10) Dementia ?F03.90 - Unspecified dementia without behavioral disturbance (ICD-10) Cataract ?H26.9 - Unspecified cataract (ICD-10) Dorsalgia ?M54.9 - Dorsalgia, unspecified (ICD-10) Hyperlipidemia ?E78.5 - Hyperlipidemia, unspecified (ICD-10) Unspecified dementia without behavioral disturbance ?F03.90 - Unspecified dementia without behavioral disturbance (ICD-10) Postmenopausal atrophic vaginitis ?N95.2 - Postmenopausal atrophic vaginitis (ICD-10) Convulsions ?R56.9 - Unspecified convulsions (ICD-10) Pressure ulcer of sacral region, unstageable ?L89.150 - Pressure ulcer of sacral region, unstageable (ICD-10) Constipation ?K59.00 - Constipation, unspecified (ICD-10) Primary hypertension ?I10 - Essential (primary) hypertension (ICD-10) Vertebral fracture Osteoarthritis ?M19.90 - Unspecified osteoarthritis, unspecified site (ICD-10) Chronic kidney disease (CKD) stage G3a/A1, moderately decreased glomerular filtration rate (GFR) between 45-59 mL/min/1.73 square meter and albuminuria creatinine ratio less than 30 mg/g ?N18.31 - Chronic kidney disease, stage 3a (ICD-10) 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 - Atherosclerotic heart disease of [place] coronary artery without angina pectoris (ICD-10) GERD (gastroesophageal reflux disease) ?K21.9 - Gastro-esophageal reflux disease without esophagitis (ICD-10) Anxiety ?F41.9 - Anxiety disorder, unspecified (ICD-10) Pelvic fracture ?S32.9XXA - Fracture of unspecified parts of lumbosacral spine and pelvis, initial encounter for closed fracture (ICD-10) Primary adrenocortical insufficiency ?E27.1 - Primary adrenocortical insufficiency (ICD-10) Diabetes mellitus type 1 ?E10.9 - Type 1 diabetes mellitus without complications (ICD-10) Surgical History S/P small bowel resection ?Z90.49 - Acquired absence of other specified parts of digestive tract (ICD-10) H/O angioplasty ?Z98.62 - Peripheral vascular angioplasty status (ICD-10) H/O mastoidectomy ?Z90.89 - Acquired absence of other organs (ICD-10) S/P laparoscopic cholecystectomy ?Z90.49 - Acquired absence of other specified parts of digestive tract (ICD-10) S/P appendectomy ?Z90.49 - Acquired absence of other specified parts of digestive tract (ICD-10) No significant past surgical history Social History Narrative: [facility] a [facility]. Code status DNR DNI What is your current living situation?: I presently have a place to live Problems where you live: no known problems In the past 12 months, utilities in danger of being shut off: no In past 12 months, lack of transportation kept you from medical appts, meetings, work, or getting things needed for daily living: no In the past 12 mos, have been you worried that your food would run out before you had money to buy more?: never true In the past 12 mos, the food you bought just didn't last and you didn't have money to buy more?: never true Highest level of school completed/degree received: Master's degree Smoking Status: Never smoker Do you use any of these nicotine containing products: None Nicotine containing products detail: fang not current pt unable to respond appropriately Second hand tobacco smoke exposure: No How often do you have a drink containing alcohol: never How often do you have six or more drinks on one occasion: Never AUDIT-C Alcohol total score: 0 Non-prescribed substance use: denies use and other Non-prescribed substance use details: pt unable to answer Caffeine: Yes (diet coke) How often does anyone, including family, friends and others, physically hurt you: never How often does anyone, including family, friends and others, insult or talk down to you: never How often does anyone, including family, friends and others, threaten you with harm: never How often does anyone, including family, friends and others, scream or curse at you: never service: No Exam Const: Vital Signs, click to edit/add: Vital Signs - 24 hr 02/23/24 02:13 Temperature 98.0 F Pulse Rate [Pulse Oximeter] 106 H Respiratory Rate 24 Blood Pressure [Le ft Upper Arm] 141/65 H Pulse Oximetry 92 Oxygen Delivery Me thod Room Air Oxygen Flow Rate 2 Documenting provider has reviewed patient's vital signs: yes Other: Appears frail, poor historian. Difficult to tell if this is delirium on top of ongoing dementia. Drowsy but will arouse to voice and attempt to answer questions, makes good eye contact and tracks me visually around the room HENMT: Common normals: normocephalic Head and scalp: normocephalic Face and sinus: normal facial exam Mouth: oral and palatal mucosa normal Throat: posterior oropharynx normal Eye: Common normals: conjunctivae normal General eye: normal appearance of both eyes Conjunctiva: conjunctiva(e) normal Neck & C-Spine: Common normals: no lymphadenopathy General: normal visual inspection Resp: Common normals: normal respiratory effort and no use of accessory muscles Other: Decreased breath sounds at the bases bilaterally but no obvious crackle or wheeze. Cardio: Common normals: regular rate, regular rhythm, S1 normal heart sound, S2 normal heart sound and no murmurs Rate: regular rate Rhythm: regular rhythm Heart sounds: S1 normal and S2 normal Other: Heart sounds are distant but I do not hear any obvious murmur today. GI: Common normals: Normal to inspection, nondistended, normoactive bowel sounds present, soft to palpation, no hepatosplenomegaly and no masses Palpation: soft and no hepatosplenomegaly Other: Ostomy in place with pasty green stool. No watery or bloody diarrhea. Bruising to the left mid abdomen, perfectly linear likely fell into an object or furniture. Subacute. Extremity: Other: Capillary refill right around 2 seconds. No obvious joint deformities or swelling. Neuro: Other: Drowsy but answers questions. Can move her extremities on command but appears generally weak. Unsure if she has is assist devices at baseline. Psych: Activity/motor behavior: appropriate eye contact Insight: limited Judgement: limited Skin: Narrative: Bruise to left mid abdomen, no obvious open sores or other signs of trauma. Course Course ED Course: Elevated blood sugar in woman with history of type 1 diabetes and adrenal insufficiency. Chronic hyponatremia and baseline dementia. Nausea and vomiting likely secondary to acute gastroenteritis versus diabetic ketoacidosis, less likely bowel obstruction or other metabolic derangement. Multiple diagnoses considered additionally. Plan 1. IV fluids, 1 L of normal saline over 2 hours, typical labs, blood sugar. If she is acidotic, would favor an insulin drip over subQ insulin. Will likely require hospitalization. Reevaluation(s) Time of Reevaluation #1: 04:13 Reevaluation #1: Labs reviewed, spoke with hospitalist. She is really not acidotic enough to justify starting a insulin drip. Hyperglycemia noted. Also concern for addisonian crisis. She is very weak. Will give stress dose steroids with hydrocortisone IV x1 and 6 units of Levemir with 5 units of regular rather than ultra short-acting insulin. Will start maintenance fluid at 100 mL/hour. I think she needs to be admitted for observation to manage the hyperglycemia, watch to see how this nausea and vomiting evolve, if not improving, would recommend abdominal imaging. There is just not enough evidence to support it at this time. Suspect gastroenteritis but would have a low threshold for getting a CT if her symptoms are not improving or she starts to have pain. Her kidney function is at her baseline, has not had further episodes of vomiting while here in the ED. hospitalist accepts observation admission. Vital Signs Vital signs: Initial Vital Signs Temperature 98.0 F 02/23/24 02:13 Temperature Source Temporal Artery Scan 02/23/24 02:13 Pulse Rate 106 H 02/23/24 02:13 Respiratory Rate 24 02/23/24 02:13 Blood Pressure 141/65 H 02/23/24 02:13 Blood Pressure Mean 90 02/23/24 02:13 Blood Pressure Position Supine 02/23/24 02:13 Pulse Oximetry 92 02/23/24 02:13 Oxygen Delivery Method Room Air 02/23/24 02:13 Oxygen Flow Rate 2 02/23/24 02:13 Vital Signs Temperature 98.0 F 02/23/24 02:13 Pulse Rate 106 H 02/23/24 02:13 Respiratory Rate 24 02/23/24 02:13 Blood Pressure 141/65 H 02/23/24 02:13 Pulse Oximetry 92 02/23/24 02:13 Oxygen Delivery Method Room Air 02/23/24 02:13 Oxygen Flow Rate 2 02/23/24 02:13 Temperature 98.0 F 02/23/24 02:13 Pulse Rate 106 H 02/23/24 02:13 Respiratory Rate 24 02/23/24 02:13 Blood Pressure 141/65 H 02/23/24 02:13 Pulse Oximetry 92 02/23/24 02:13 Oxygen Delivery Method Room Air 02/23/24 02:13 Oxygen Flow Rate 2 02/23/24 02:13 Medications Administered Medications: Generic Name Dose Route Start Last Admin Trade Name Freq PRN Reason Stop Dose Admin Sodium Chloride 1,000 mls @ 500 mls/hr 02/23/24 02:28 02/23/24 03:00 0.9 % Sodium Chloride 1000 Ml IV 02/23/24 04:27 500 mls/hr .Q2H KRANTHI Administration Discontinued Medications Generic Name Dose Route Start Last Admin Trade Name Eric PRN Reason Stop Dose Admin Ondansetron HCl 4 mg 02/23/24 02:28 02/23/24 03:15 Ondansetron 2 Mg/Ml Inj IVP 02/23/24 02:29 4 mg ONCE ONE Administration Medical Decision Making Lab Data Lab results reviewed: Yes I reviewed the patient's lab results Lab results narrative: Mild leukocytosis, hyperglycemic with no real and and gap. Her pH is only 7 point three. Overall not consistent with diabetic ketoacidosis. The hyponatremia is chronic and at her baseline. The hyperkalemia is likely artifact, suspect hemolysis. It was a very difficult lab draw. Labs: Lab Results 02/23/24 02/23/24 Range/Units 02:50 03:10 WBC 11.10 H (4.50-11.00) K/uL RBC 4.78 (4.00-5.20) m/uL Hgb 14.3 (12.0-16.0) gm/dL Hct 44.4 (33.0-51.0) % MCV 93 (80-100) fL MCH 30 (26-34) pg MCHC 32 (32-36) gm/dL RDW Coeff of Sharmaine 14.5 (11.5-15.5) % Plt Count 213 (140-440) K/uL Neut % (Auto) 69.9 (42.0-72.0) % Lymph % (Auto) 20.3 (20-44) % [place] % (Auto) 7.7 (0.0-11.0) % Eos % (Auto) 1.2 (0.0-7.0) % Baso % (Auto) 0.5 (0.0-3.0) % Neut # (Auto) 7.80 H (1.7-7.0) K/uL Lymph # (Auto) 2.30 (0.90-2.90) K/uL [place] # (Auto) 0.90 (0.00-0.90) K/UL Eos # (Auto) 0.10 (0.00-0.50) K/uL Baso # (Auto) 0.10 (0.00-0.30) K/uL Abs Immat Gran (auto) 0.00 (0.00-0.30) K/uL Imm/Tot Granulo (auto) 0.4 % VBG pH 7.304 L (7.32-7.43) VBG pCO2 49 (40-50) mmHG VBG pO2 < 30.1 (25-47) mmHG VBG HCO3 24 (21-28) mmol/L Sodium 126 L (135-149) mmol/L Potassium 5.7 H (3.6-5.1) mmol/L Chloride 97 (96-114) mmol/L Carbon Dioxide 22 (20-32) mmol/L Anion Gap 7 (7-15) mEq/L BUN 34 H (7-30) mg/dL Creatinine 1.3 (0.5-1.5) mg/dL Estimated Creat Clear 22.24 Estimated GFR 40 ml/min Glucose 475 H* (60-115) mg/dL Lactate 2.7 H (0.5-1.9) mmol/L Calcium 9.6 (8.4-10.6) mg/dL Total Bilirubin 2.8 H (0.1-1.5) mg/dL AST 40 H (12-35) U/L ALT 60 H (4-35) U/L Alkaline Phosphatase 131 (40-150) U/L C-Reactive Protein 4.9 H (0.5-1.0) mg/dL Total Protein 6.8 (6.0-8.3) g/dL Albumin 4.1 (3.3-5.0) g/dL Urine Color Yellow (Yellow) Urine Appearance Clear (Clear) Urine pH 5.0 (5.0-8.5) Ur Specific [place] 1.020 (1.000-1.030) Urine Protein Trace A (Negative) Urine Glucose (UA) 3+ A (Negative) Urine Ketones 1+ A (Negative) Urine Blood Trace-lysed A (Negative) Urine Nitrite Negative (Negative) Urine Bilirubin Negative (Negative) Urine Urobilinogen 0.2 (0.2-1.0) Ur Leukocyte Esterase Trace A (Negative) Urine RBC 0-2 (0-2) Urine WBC 2-5 (0-5) Ur Squamous Epith Cells Few (None-Few) Urine Bacteria Moderate A (None) Urine Yeast Few A (None) ECG Data Attestation: I personally reviewed and interpreted this ECG as follows: Prior ECG tracings: available for review Interpretation: Sinus tachycardia rate of 110. Interval and axis actually do look normal. Other than the tachycardia unchanged from previous EKGs. No ischemic changes or acute ST or T-wave abnormalities compared to baseline. Discharge Plan Discharge Clinical Impression: Acute hyperglycemia, Delirium, Vomiting, Addisonian crisis Patient Disposition: Admitted As Observation
--- OUTSIDE RECORDS SUMMARY | 2024-02-23 02:43 | XMS_ITS | Clinical Summary ---
Author Name Unknown Organization [facility] Address [address] [place] [address] Care Team Providers Care Joint Cleaning Machine Operator Name Role Phone Unavailable Primary Care Provider Unavailabl e Source Comments Patient records contain information from all sites at [facility]. For routine questions regarding patient records, call [phone] during business hours, M-F 8:00 AM - 5:00 PM Central Time. Record requests for emergency care only can be directed to [phone] at any time.[facility] Allergies Active Allergy Reactions Criticality Noted [...] Order 1 Unspecified 11 2 Active multivitamin-iron -[id number] (THERAPEUTIC-M) 400 mcg (folic acid) per tablet [...] Disease 05/02/2022 Atherosclerotic Heart Diseas e Of [place] Coronary Artery Without Angina Pectoris 05/02/2022 [...] METABOLIC PANEL, S/P Routine 01/06/2024 7:36 AM SAP CRM DEVELOPER HEMOGLOBIN A1C, B STAT 03/03/2023 6:2 8 [...] Siddhartha Mata M.D., M.B.A. LAB BLOOD ADD-ON [facility] [address] [place] [address], [place] DTL [facility] [address] [place] [address] from Last 3 Months or Most Recently Relevant to Health Maintenance Advance Directives For more information, please contact: [phone] Documents on File Type Date Recorded Patient Electric Distribution Checker Expl anation Advance Directives 03/10/2023 10:42 AM [...]
--- OUTSIDE RECORDS SUMMARY | 2024-02-23 02:43 | XMS_ITS | Clinical Summary ---
Author Name Unknown Organization [employer] [facility] Address [place], [place] [address] Care Team Providers Care Croze Machine Operator Name Role Phone Mercedes, Miladis Zavala RN Unavailable [phone] Perla Corrigan RN Unavailable [phone] Onur Schreiber MD Primary Care Provider [...] taking differently: 2 mg Oral QID, Informant: Mcc [facility], Reported on 08/31/2023 Bonmmmpzcxuco-Jjn-K A-Ginkgo (ONE DAILY WOMEN 50 PLUS) 400-120 mcg-mg tabIndications:Oste oporosis, unspecified osteoporosis type, unspecified pathological fracture presence Take by mouth. 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 Take 1 capsule by mouth daily at 8am 90 capsule 3 1 Active cholecalciferol, Vitamin D3, 2,000 unit tabletIndications:C ompression fracture of L1 lumbar vertebra, sequela TAKE TWO TABLETS DAILY AT 8PM 180 tablet 3 1 Active Additional Information Patient taking differently: 4,000 unitOralDAILY EVENING, Informant: Mcc [facility], Reported on 08/31/2023 levothyroxine (SYNTHROID) 75 mcg tabletIndications:A cquired hypothyroidism TAKE ONE TABLET DAILY BEFORE BREAKFAST AT 8AM 90 tablet 1 Active Additional Information Patient taking differently: 75 mcgOralBEFORE BREAKFAST, Informant: Mcc [facility], Reported on 08/31/2023 estradioL (ESTRACE) 0.01% [...] 25 mg tabletIndications: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 0 3 Active fludrocortisone (FLORINEF) 0.1 mg tabletIndications:A drenal insufficiency (Cookson's disease) (HC) Take 3 Tablets (0.3 mg) [...] predniSONE 5 mg/5 mL solutionIndications :Adrenal insufficiency (Cookson's disease) (HC) Take 8 mL (8 mg) by mouth once daily with a meal. 240 mL 1 4 Active hydrocortisone (CORTEF) 5 mg tabletIndications:A drenal insufficiency (Cookson's disease) (HC) Hydrocortisone 20 mg in the [...] up to [facility] her [facility]. Call [phone] right after to donate. Essential hypertension 02/19/2017 Type 1 diabetes mellitus with complication 02/19 Overview: She developed Diabetes in 1997. She was diagnosed with Type [address] 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 [...] & L3 lumbar vertebra 05/1406/19/2012 Adrenal insufficiency (Cookson's disease) 2011 Renal tubular acidosis, type 4 [...] Description 02/20/2024 Lab Requisition [facility] [phone] Onur Schreiber MD 02/19/2024 Telephone [facility] [address] [place] [phone] Vivian Newman MD Medication Management (predniSONE 5 mg/5 mL solution ) 02/09/2024 Lab Requisition [facility] [phone] Onur Schreiber MD 02/09/2024 Telephone [facility] [address] [place] [address] Vivian Newman MD Results 01/28/2024 Telephone [facility], [facility] [address] [place] [address] Vivian Newman MD Diabetes (Blood Sugar Log, Lab Results, and MAR) 01/26/2024 Lab Requisition [facility] [phone] Clarissa Grimes DONKEY ENGINE FIRER/FIREMAN 01/19/2024 Telephone [facility], [facility] [address] [place] [phone] Vivian Newman MD Medication Management 01/19/2024 Telephone [facility], [facility] [address] [place], [place] [phone] Vivian Newman MD Diabetes 01/15/2024 Orders Only [facility] Scanner 1 scan: (1-Ord) [facility], MULTIPLE LAB RESULTS, 01/15/2024 01/15/2024 Orders Only [facility] Scanner 1 scan: (1-Ord) [place], MULTIPLE LABS, 01/15/2024 01/15/2024 Telephone [facility], [facility] [address] [place] [phone] Vivian Newman MD Results 01/14/2024 2:00 PM CDT Phone Office Visit [facility] [address] [place] [phone] Vivian Newman MD Phone Visit; Follow Up 01/14/2024 Lab Requisition [facility] [phone] Onur Schreiber MD 01/06/2024 Telephone [facility] [address] [place] [phone] Vivian Newman MD Results 01/05/2024 Lab Requisition [facility] [phone] Clarissa Grimes, DONKEY ENGINE FIRER/FIREMAN 12/29/2023 Lab Requisition [facility] [phone] Clarissa Grimes, DONKEY ENGINE FIRER/FIREMAN 12/18/2023 Lab Requisition [facility] [phone] Onur Schreiber MD 12/16/2023 Telephone [facility] [address] [place] [phone] Vivian Newman MD Consult 12/15/2023 2:30 PM LAUNDROMAT MANAGER Office Visit [facility] [address] [place] [phone] Vivian Newman MD Consult (Type 1 DM, Cookson Disease/Referred by Onur Schreiber MD) 12/15/2023 Orders Only [facility] Scanner 1 scan: (1-Ord) [facility], MULTIPLE LABS, 12/15/2023 12/15/2023 Travel 12/15/2023 Telephone [facility] [address] [place] [phone] Vivian Newman MD Appointment 12/12/2023 Orders Only [facility] Scanner 1 scan: (1-Ord) [facility], SODIUM, 12/12/2023 12/09/2023 Orders Only [facility] Scanner 1 scan: (1-Ord) [facility], RESULTS, 12/09/2023 12/09/2023 Orders Only [facility] Scanner 1 scan: (1-Ord) [place], MULTIPLE LABS, 12/09/2023 11/26/2023 Lab Requisition [facility] [phone] Onur Schreiber MD from Last 3 Months [...] Disease Father heart attack d ied of [place] at 62 Other Maternal Grandmother at 99.5 [...] Comments Blood Pressure 115/60 12/15/2023 2:20 PM LAUNDROMAT MANAGER Pulse 84 12/15/2023 2:20 PM LAUNDROMAT MANAGER Temperature 36.9 ??C (98.5 ??F) 09/04/2023 1:15 AM CD T Respiratory Rate 14 09/04/2023 1:15 AM CDT Oxygen Saturation 95% 09/04/2023 1:15 AM CDT Inhaled Oxygen Concentration - - Weight 46.2 kg (101 lb 12.8 oz) 12/15/2023 2:20 PM LAUNDROMAT MANAGER Height 157.5 cm (5' 2) 08/31/2023 2:35 AM CDT Body Mass Index 18.62 08/31/2023 2:35 AM CDT Plan of Treatment Upcoming Encounters Date Type Department Care Team (Late st Contact Info) Description 04/01/2024 3:00 PM CDT Office Visit [facility] [address] [place] [phone] Vivian Newman MD [address] [place] [address] [...] BASIC METABOLIC PANEL Routine 01/06/2024 7:36 AM LAUNDROMAT MANAGER Primary adrenocortical insufficiency (HC) BASIC METABOLIC PANEL Routine 12/30/2023 7:39 AM LAUNDROMAT MANAGER Hypo-osmolality and hyponatremia ELECTROLYTE PANEL Routine 12/23/2023 7:2 2 AM LAUNDROMAT MANAGER Addisonian crisis (HC) SCAN-LABORATORY REPORT 12/15/2023 12:00 AM LAUNDROMAT MANAGER SCAN-LABORATORY REPORT 12/12/2023 12:00 AM LAUNDROMAT MANAGER SCAN-LABORATORY REPORT 12/09/2023 12:00 AM LAUNDROMAT MANAGER SCAN-LABORATORY REPORT 12/09/2023 12:00 AM LAUNDROMAT MANAGER from Last 3 Months Results * (ABNORMAL) BASIC METABOLIC PANEL (02/10/2024 7:44 AM CDT) Only the most recent of4 resultswithin the time period is included. SODIUM 130(L) 136 - 145 mmol/L 02/10/2024 9:36 AM [facility] POTASSIUM 5.4(H) 3.5 - 5.1 mmol/L 02/10/2024 9:36 AM [facility] CHLORIDE 97(L) 98 - 107 mmol/L 02/10/2024 9:36 AM [facility] CO2,TOTAL 24 22 - 29 mmol/L 02/10/2024 9:36 AM [facility] ANION GAP 9 5 - 18 02/10/2024 9:36 AM [facility] GLUCOSE 232(H) 70 - 99 mg/dL 02/10/2024 9:36 AM [facility] CALCIUM 9.8 8.8 - 10.2 mg/dL 02/10/2024 9:36 AM [facility] BUN 28(H) 8 - 23 mg/dL 02/10/2024 9:36 AM [facility] CREATININE 1.16(H) 0.50 - 0.90 mg/dL 02/10/2024 9:36 AM [facility] BUN/CREAT RATIO 24(H) 10 - 20 9:36 AM [facility] eGFR 46(L) >90 mL/min/1.7 3m2 02/10/2024 9:36 AM [facility] Comment:As of 2022, eG FR is [...] Onur Schreiber MD CHEMISTRY Performing Organization Address [facility] de Phone Number [facility] [address] [place] [address] * SCAN-LABORATORY REPORT (01/15/2024 12:00 AM CDT) Only the most recent of6 resultswithin the time period is included. Scanner OTHER * (ABNORMAL) ELECTROLYTE PANEL (12/23/2023 7:22 AM LAUNDROMAT MANAGER) SODIUM 130(L) 136 - 145 mmol/L 12/23/2023 8:[address] [facility] POTASSIUM 5.2(H) 3.5 - 5.1 mmol/L 12/23/2023 8:[address] [facility] CHLORIDE 96(L) 98 - 107 mmol/L 12/23/2023 8:[address] [facility] CO2,TOTAL 23 22 - 29 mmol/L 12/23/2023 8:[address] [facility] ANION GAP 11 5 - 18 12/23/2023 8:[address] [facility] Blood BLOOD SPECIMEN / Unknown Butterfly / Unknown 12/23/2023 7:22 AM LAUNDROMAT MANAGER 12/23/2023 8:11 AM LAUNDROMAT MANAGER Onur Schreiber MD CHEMISTRY Performing Organization Address [facility] de Phone Number [facility] [address] [place] [address] from Last 3 Months Advance Directives Documents on File Type Date Recorded Patient Skidder Runner Expl anation POLST 01/05/2018 11:42 AM TRISTEN DIAZD, 01/02/18 Healthcare Directive 06/02/2017 9:37 AM AN YVES CHENG 05/28/2017 POLST 07/12/2014 2:25 PM TRISTEN MONSALVE, 07/12/2014 POLST 08/19/2012 3:55 PM POLST, TOOTIE CYR, 08/11/12 Healthcare Directive 04/30/2012 3:38 PM HO DNR REQUEST FORM, [facility], 04/16/12 * DNR (Latest Code Status on [...] Code Status Discussion: Not Discussed Care Teams Croze Machine Operator Relationship Specialty Start Date End Date Onur Schreiber MD [address] [place] [id number] PCP - General Family Practice 04/17/22 Miladis Long, RN [address] [id number] Lan Engineer - [facility] Registered Nurse 08/27/21 Perla Corrigan RN [address] [address] Lan Engineer - [facility] Registered Nurse 08/27/21
--- OUTSIDE RECORDS SUMMARY | 2024-02-23 02:43 | XMS_ITS ---
Author Name Unknown Organization [facility] Address [address] [place] [address] Care Team Providers Care Roll Grinder Name Role Phone Unavailable Unavailable Unavailable Surgery Details Not on file Complications Check Surgery Details section. Procedure Estimated Blood Loss Check Surgery Details section. Procedure Findings Check Surgery Details section. Procedure Specimens Taken Check Surgery Details section.
--- OUTSIDE RECORDS SUMMARY | 2024-02-23 02:43 | XMS_ITS | Referral Summary ---
Author Name Unknown Organization [facility] Address [address] [place] [address] Care Team Providers Care Boilermaker Fitter Name Role Phone Unavailable Primary Care Provider Unavailabl e Source Comments Patient records contain information from all sites at [facility]. For routine questions regarding patient records, call [phone] during business hours, M-F 8:00 AM - 5:00 PM Central Time. Record requests for emergency care only can be directed to [phone] at any time.[facility] Allergies Active Allergy Reactions Criticality Noted [...] Order 1 Unspecified 11 2 Active multivitamin-iron -[id number] (THERAPEUTIC-M) 400 mcg (folic acid) per tablet [...] Disease 05/02/2022 Atherosclerotic Heart Diseas e Of [place] Coronary Artery Without Angina Pectoris 05/02/2022 Hyperlipidemia [...] METABOLIC PANEL, S/P Routine 01/06/2024 7:36 AM CREDENTIALS SPECIALIST HEMOGLOBIN A1C, B STAT 03/03/2023 6:2 8 [...] Siddhartha Mata M.D., M.B.A. LAB BLOOD ADD-ON [facility] [address] [place] [address], [place] DTL [facility] [address] [place] [address] from Last 3 Months or Most Recently Relevant to Health Maintenance Advance Directives For more information, please contact: [phone] Documents on File Type Date Recorded Patient Liquor Bridge Operator Helper Expl anation Advance Directives 03/10/2023 10:42 AM [...]
[2024-02-23] MEDS: 0.9 % SODIUM CHLORIDE 1000 ml 1,000 ML 500 ML IV (03:00)
[2024-02-23] MEDS: ONDANSETRON 2 MG/ML inj 4 MG IVP (03:15)
[2024-02-23 03:21] LABS: HCO3 VBG 24 mmol/L (21-28); Lactate* 2.7 mmol/L (0.5-1.9); PCO2 VBG 49 mmHG (40-50); PO2 VBG < 30.1 mmHG (25-47); pH VBG 7.304 (7.32-7.43)
[2024-02-23 03:24] LABS: Basophils Percent Auto 0.5 % (0.0-3.0); Eosinophils Percent Auto 1.2 % (0.0-7.0); Hematocrit 44.4 % (33.0-51.0); Hemoglobin* 14.3 gm/dL (12.0-16.0); Immature Granulocytes Pct Auto 0.4 %; Lymphocytes Percent Auto 20.3 % (20-44); Mean Corpuscular HGB Conc 32 gm/dL (32-36); Mean Corpuscular Hemoglobin 30 pg (26-34); Mean Corpuscular Volume 93 fL (80-100); Monocytes Percent Auto 7.7 % (0.0-11.0); Neutrophils Percent Auto 69.9 % (42.0-72.0); Platelet Count* 213 K/uL (140-440); RDW Coefficient of Variation % 14.5 % (11.5-15.5); Red Blood Count 4.78 m/uL (4.00-5.20)
[2024-02-23 03:26] LABS: Appearance Urine Clear (Clear); Bilirubin Urine Negative (Negative); Blood Urine Trace-lysed (Negative); Color Urine Yellow (Yellow); Glucose Urine 3+ (Negative); Ketones Urine 1+ (Negative); Leukocyte Esterase Urine Trace (Negative); Nitrite Urine Negative (Negative); Protein Urine Trace (Negative); Urobilinogen Urine 0.2 (0.2-1.0)
[2024-02-23 03:30] LABS: Slide Review Reflex No
[2024-02-23 03:33] LABS: Bacteria Urine Moderate; RBC Urine 0-2 (0-2); Squamous Epithelial Cell Urine Few (None-Few)
[2024-02-23 03:38] LABS: Albumin* 4.1 g/dL (3.3-5.0); Chloride* 97 mmol/L (96-114); Sodium* 126 mmol/L (135-149)
[2024-02-23 03:39] LABS: Potassium* 5.7 mmol/L (3.6-5.1)
[2024-02-23 03:41] LABS: Alanine Aminotransferase* 60 U/L (4-35); Alkaline Phosphatase* 131 U/L (40-150); Anion Gap 7 mEq/L (7-15); Aspartate Amino Transferase* 40 U/L (12-35); Bilirubin Total* 2.8 mg/dL (0.1-1.5); Blood Urea Nitrogen* 34 mg/dL (7-30); Carbon Dioxide* 22 mmol/L (20-32); Creatinine* 1.3 mg/dL (0.5-1.5); Est. Creatinine Clearance* 22.24; Estimated Glomerular Filt Rate 40 ml/min; Total Protein* 6.8 g/dL (6.0-8.3)
[2024-02-23 03:42] LABS: Calcium* 9.6 mg/dL (8.4-10.6)
[2024-02-23 03:44] LABS: C Reactive Protein* 4.9 mg/dL (0.5-1.0)
[2024-02-23 03:48] LABS: Glucose* 475 mg/dL (60-115)
[2024-02-23] MEDS: HYDROCORTISONE SOD SUCCINATE 50 MG/ML inj 100 MG IVP ×4 (04:34→17:55)
--- NOTE | 2024-02-23 04:42 | PC.NURSE ---
report to chief nuclear medicine technologist, pt transferred to [facility] via cart.
--- NOTE | 2024-02-23 05:34 | W.PM.THH&P_ITS ---
Telehealth- H&P: HPI History of Present Illness Date Seen: 02/23/24 Chief complaint: hyperglycemia Narrative: Shira Stauffer is seen as an Interactive Telehealth visit. Shira Stauffer is a 88 year old male who is Seen in her hospital room at [facility] with the assistance of nursing staff. She has been admitted through the emergency room. She is a markedly poor historian. She is not very interactive she answer some questions. She is unable to tell me why she is in the hospital. She just tells me she does not feel good. But when I ask her if she is hungry she tells me that she is. She denies having any pain. She denies being short of breath but I am really not able to get additional history. She apparently lives in a [facility] has a history of type 1 diabetes, adrenal insufficiency along with dementia. She per reports has had nausea and vomiting. She was brought into the emergency room to be evaluated. Workup in the emergency room did not show any acute findings other than an elevated glucose. She did not have an anion gap it was not felt to be DKA. Patient was not eating and drinking well it was felt that she needed to be hydrated and tell her she eating and drinking improved she has now been admitted to the medical floor. I am really unable to get any additional history from her. Review of Systems Narrative: A complete review of systems was performed positive pertinent and negatives in the history of present illness. [facility] Medical History (Updated 02/23/24 @ 05:45 by Winston Koehler DO) Hyperkalemia (12/22/11) ?E87.5 - Hyperkalemia (ICD-10) Acute cystitis without hematuria ?N30.00 - Acute cystitis without hematuria (ICD-10) Frailty syndrome in geriatric patient ?R54 - Age-related physical debility (ICD-10) Physical deconditioning ?R53.81 - Other malaise (ICD-10) Chronic hyponatremia ?E87.1 - Hypo-osmolality and hyponatremia (ICD-10) Low body weight due to inadequate caloric intake ?R63.6 - Underweight (ICD-10) Adult failure to thrive ?R62.7 - Adult failure to thrive (ICD-10) Weakness ?R53.1 - Weakness (ICD-10) Chronic pain ?G89.29 - Other chronic pain (ICD-10) Altered mental status ?R41.82 - Altered mental status, unspecified (ICD-10) Atrial fibrillation ?I48.91 - Unspecified atrial fibrillation (ICD-10) Diabetes mellitus type 1 (12/22/11) ?E10.9 - Type 1 diabetes mellitus without complications (ICD-10) Renal tubular acidosis, type 4 ?N25.89 - Other disorders resulting from impaired renal tubular function (ICD-10) Ileostomy in place ?Z93.2 - Ileostomy status (ICD-10) Unsteady gait ?R26.81 - Unsteadiness on feet (ICD-10) Polypharmacy ?Z79.899 - Other nursing home (current) drug therapy (ICD-10) Osteoporosis ?M81.0 - Age-related osteoporosis without current pathological fracture (ICD- 10) Ketoacidosis due to diabetes mellitus (08/03/13) ?E11.10 - Type 2 diabetes mellitus with ketoacidosis without coma (ICD-10) Irritable bowel syndrome ?K58.9 - Irritable bowel syndrome without diarrhea (ICD-10) Falls (03/31/12) ?W19.XXXA - Unspecified fall, initial encounter (ICD-10) Epistaxis ?R04.0 - Epistaxis (ICD-10) Diverticulitis of large intestine ?K57.32 - Diverticulitis of large intestine without perforation or abscess without bleeding (ICD-10) Diabetic gastroparesis (08/03/13) ?E11.43 - Type 2 diabetes mellitus with diabetic autonomic (poly)neuropathy (ICD-10) ?K31.84 - Gastroparesis (ICD-10) Coronary artery disease ?I25.10 - Atherosclerotic heart disease of [place] coronary artery without angina pectoris (ICD-10) Concussion (03/29/12) ?S06.0XAA - Concussion with loss of consciousness status unknown, initial encounter (ICD-10) Compression fracture of L2 vertebra with delayed healing ?S32.020G - Wedge compression fracture of second lumbar vertebra, subsequent encounter for fracture with delayed healing (ICD-10) Closed head injury ?S09.90XA - Unspecified injury of head, initial encounter (ICD-10) Closed fracture of superior ramus of right pubis ?S32.511A - Fracture of superior rim of right pubis, initial encounter for closed fracture (ICD-10) Closed fracture of left side of symphysis pubis ?S32.592A - Other specified fracture of left pubis, initial encounter for closed fracture (ICD-10) Closed fracture of left inferior pubic ramus ?S32.592A - Other specified fracture of left pubis, initial encounter for closed fracture (ICD-10) Chronic constipation (07/02/13) ?K59.09 - Other constipation (ICD-10) Anxiety disorder ?F41.9 - Anxiety disorder, unspecified (ICD-10) 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 (ICD-10) Seizure ?R56.9 - Unspecified convulsions (ICD-10) Hypothyroidism ?E03.9 - Hypothyroidism, unspecified (ICD-10) Hyponatremia (12/22/11) ?E87.1 - Hypo-osmolality and hyponatremia (ICD-10) Gastroesophageal reflux disease ?K21.9 - Gastro-esophageal reflux disease without esophagitis (ICD-10) Chronic pain ?G89.29 - Other chronic pain (ICD-10) Asthma ?J45.909 - Unspecified asthma, uncomplicated (ICD-10) Acute adrenal crisis ?E27.2 - Addisonian crisis (ICD-10) POLST (Physician Orders for Life-Sustaining Treatment) ?Z78.9 - Other specified health status (ICD-10) Health care directive on file ?Z78.9 - Other specified health status (ICD-10) High output ileostomy ?R19.8 - Other specified symptoms and signs involving the digestive system and abdomen (ICD-10) ?Z93.2 - Ileostomy status (ICD-10) Hyperkalemia ?E87.5 - Hyperkalemia (ICD-10) Abnormal liver enzymes ?R74.8 - Abnormal levels of other serum enzymes (ICD-10) Dementia ?F03.90 - Unspecified dementia without behavioral disturbance (ICD-10) Cataract ?H26.9 - Unspecified cataract (ICD-10) Dorsalgia ?M54.9 - Dorsalgia, unspecified (ICD-10) Hyperlipidemia ?E78.5 - Hyperlipidemia, unspecified (ICD-10) Unspecified dementia without behavioral disturbance ?F03.90 - Unspecified dementia without behavioral disturbance (ICD-10) Postmenopausal atrophic vaginitis ?N95.2 - Postmenopausal atrophic vaginitis (ICD-10) Convulsions ?R56.9 - Unspecified convulsions (ICD-10) Pressure ulcer of sacral region, unstageable ?L89.150 - Pressure ulcer of sacral region, unstageable (ICD-10) Constipation ?K59.00 - Constipation, unspecified (ICD-10) Primary hypertension ?I10 - Essential (primary) hypertension (ICD-10) Vertebral fracture Osteoarthritis ?M19.90 - Unspecified osteoarthritis, unspecified site (ICD-10) Chronic kidney disease (CKD) stage G3a/A1, moderately decreased glomerular filtration rate (GFR) between 45-59 mL/min/1.73 square meter and albuminuria creatinine ratio less than 30 mg/g ?N18.31 - Chronic kidney disease, stage 3a (ICD-10) 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 - Atherosclerotic heart disease of [place] coronary artery without angina pectoris (ICD-10) GERD (gastroesophageal reflux disease) ?K21.9 - Gastro-esophageal reflux disease without esophagitis (ICD-10) Anxiety ?F41.9 - Anxiety disorder, unspecified (ICD-10) Pelvic fracture ?S32.9XXA - Fracture of unspecified parts of lumbosacral spine and pelvis, initial encounter for closed fracture (ICD-10) Primary adrenocortical insufficiency ?E27.1 - Primary adrenocortical insufficiency (ICD-10) Diabetes mellitus type 1 ?E10.9 - Type 1 diabetes mellitus without complications (ICD-10) Surgical History S/P small bowel resection ?Z90.49 - Acquired absence of other specified parts of digestive tract (ICD- 10) H/O angioplasty ?Z98.62 - Peripheral vascular angioplasty status (ICD-10) H/O mastoidectomy ?Z90.89 - Acquired absence of other organs (ICD-10) S/P laparoscopic cholecystectomy ?Z90.49 - Acquired absence of other specified parts of digestive tract (ICD- 10) S/P appendectomy ?Z90.49 - Acquired absence of other specified parts of digestive tract (ICD- 10) No significant past surgical history Social History Narrative: [facility] Code status DNR DNI What is your current living situation?: I presently have a place to live Problems where you live: no known problems In the past 12 months, utilities in danger of being shut off: no In past 12 months, lack of transportation kept you from medical appts, meetings, work, or getting things needed for daily living: no In the past 12 mos, have been you worried that your food would run out before you had money to buy more?: never true In the past 12 mos, the food you bought just didn't last and you didn't have money to buy more?: never true Highest level of school completed/degree received: Master's degree Smoking Status: Never smoker Do you use any of these nicotine containing products: None Nicotine containing products detail: fang not current pt unable to respond appropriately Second hand tobacco smoke exposure: No How often do you have a drink containing alcohol: never How often do you have six or more drinks on one occasion: Never AUDIT-C Alcohol total score: 0 Non-prescribed substance use: denies use and other Non-prescribed substance use details: pt unable to answer Caffeine: Yes (diet coke) How often does anyone, including family, friends and others, physically hurt you : never How often does anyone, including family, friends and others, insult or talk down to you: never How often does anyone, including family, friends and others, threaten you with harm: never How often does anyone, including family, friends and others, scream or curse at you: never service: No Meds Home Medications and Allergies Home Medications Medication Instructions Recorded Confirmed Type cholecalciferol (vitamin D3) 50 4,000 unit PO HS 05/02/22 11/30/23 History mcg (2,000 unit) tablet coenzyme Q10 100 mg capsule 100 mg PO HS 05/02/22 11/30/23 History estradiol 0.01% (0.1 mg/gram) 1 appful vaginal .MOTH@HS 05/02/22 11/30/23 History vaginal cream hydrocortisone 5 mg tablet 10 - 15 mg PO BID 05/02/22 11/30/23 History lactobacillus combination no.4 3 3,000 mmu cells PO DAILY 05/02/22 11/30/23 History billion cell capsule (Probiotic) levothyroxine 75 mcg tablet 75 mcg PO DAILY 05/02/22 11/30/23 History multivit-iron 18 mg-folic acid 400 1 tab PO DAILY 05/02/22 11/30/23 History mcg-calcium 500 mg-minerals tablet (Women's One Daily) olopatadine 0.2 % eye drops 1 drp ophthalmic (eye) DAILY 05/02/22 11/30/23 History vitamin B complex (Vitamins B 1 cap PO DAILY 05/02/22 11/30/23 History Complex capsule) acetaminophen 500 mg capsule 1,000 mg PO TID PRN 05/28/22 11/30/23 History ondansetron HCl 4 mg tablet 4 mg PO Q6H PRN 05/28/22 11/30/23 History simethicone 80 mg chewable tablet 80 mg PO TID 05/28/22 11/30/23 History aspirin 81 mg chewable tablet 81 mg PO HS 03/03/23 11/30/23 History glucose 4 gram chewable tablet 4 g PO Q15M PRN 03/03/23 11/30/23 History (Dex4 Glucose) sertraline 50 mg tablet 50 mg PO DAILY 03/03/23 11/30/23 History loperamide 2 mg capsule 4 mg PO BID PRN 03/27/23 11/30/23 History glucagon 1 mg solution for 1 mg IM ONCE PRN 09/19/23 11/30/23 History injection (Glucagon Emergency Kit) insulin aspart U-100 100 unit/mL 5 sliding scale dose subcut 09/19/23 11/30/23 History (3 mL) subcutaneous pen USEASDIRECTD insulin aspart U-100 100 unit/mL 7 - 10 unit subcut TIDWM 09/19/23 11/30/23 History (3 mL) subcutaneous pen nitroglycerin 0.4 mg sublingual 0.4 mg sublingual Q5M PRN 09/19/23 11/30/23 History tablet insulin glargine 100 unit/mL (3 6 unit subcut HS 11/30/23 11/30/23 History mL) subcutaneous pen (Lantus Solostar U-100 Insulin) morphine 15 mg tablet,extended 15 mg PO TID 11/30/23 11/30/23 History release Allergies Allergy/AdvReac Type Severity Reaction Status Date / Time adhesive tape Allergy Mild Rash Verified 11/30/23 03:03 diclofenac Allergy Unknown Verified 11/30/23 03:03 aspartame Allergy Verified 11/30/23 03:03 beclomethasone Allergy Verified 11/30/23 03:03 bisacodyl Allergy Verified 11/30/23 03:03 dexamethasone Allergy Verified 11/30/23 03:03 doxycycline Allergy Verified 11/30/23 03:03 erythromycin base Allergy Verified 11/30/23 03:03 gabapentin Allergy Verified 11/30/23 03:03 hydrochlorothiazide Allergy Verified 11/30/23 03:03 lactase [From Dairy Aid] Allergy Verified 11/30/23 03:03 meclizine Allergy Verified 11/30/23 03:03 metformin Allergy Verified 11/30/23 03:03 metoclopramide Allergy Verified 11/30/23 03:03 nabumetone [From Relafen] Allergy Verified 11/30/23 03:03 propranolol Allergy Verified 11/30/23 03:03 raloxifene Allergy Verified 11/30/23 03:03 ramipril Allergy Verified 11/30/23 03:03 tobramycin Allergy Verified 11/30/23 03:03 venlafaxine Allergy Verified 11/30/23 03:03 Exam Narrative Exam Narrative: Physical Exam GENERAL: ?vital signs reviewed, well developed and nourished, in no distress HEENT: pupils are equal round and reactive to light, extraocular movements are grossly within normal limits and oral mucosa is Dryt. NECK: Supple without lymphadenopathy or thyromegaly according to nursing staff examination observation HEART: Regular rate and rhythm without any rub harsh murmur LUNGS: Clear to auscultation bilaterally with good air movement throughout ABDOMEN: Observation from nurse assisted exam, abdomen appears soft, nontender, and nondistended with Positive bowel sounds noted. colostomy bag appears to be functioning. EXTREMITIES: Strength and sensation is observed to be grossly within normal limits in the upper and lower extremities.? No focal strength deficit is observed. SKIN:? Observed warm and dry with color normal Const Vital Signs, click to edit/add: Vital Signs - 24 hr 02/23/24 02:13 02/23/24 04:23 Temperature 98.0 F 97.5 F L Pulse Rate [Pulse Oximeter] 106 H 115 H Respiratory Rate 24 20 Blood Pressure [Left Upper Arm] 141/65 H 125/48 L Pulse Oximetry 92 94 Oxygen Delivery Method Room Air Nasal Cannula Oxygen Flow Rate 2 2 Hospitalist - H&P: Result Labs Labs: Short CBC 02/23/24 Range/Units 03:10 WBC 11.10 H (4.50-11.00) K/uL Hgb 14.3 (12.0-16.0) gm/dL Hct 44.4 (33.0-51.0) % Plt Count 213 (140-440) K/uL BMP 02/23/24 03:10 Sodium 126 L Potassium 5.7 H Chloride 97 Carbon Dioxide 22 BUN 34 H Creatinine 1.3 Glucose 475 H* Calcium 9.6 Liver Function 02/23/24 Range/Units 03:10 Total Bilirubin 2.8 H (0.1-1.5) mg/dL AST 40 H (12-35) U/L ALT 60 H (4-35) U/L Alkaline Phosphatase 131 (40-150) U/L Albumin 4.1 (3.3-5.0) g/dL Urine 02/23/24 Range/Units 02:50 Urine Color Yellow (Yellow) Urine Appearance Clear (Clear) Urine pH 5.0 (5.0-8.5) Ur Specific [place] 1.020 (1.000-1.030) Urine Protein Trace A (Negative) Urine Glucose (UA) 3+ A (Negative) Assessment and Plan Assessment and plan (1) Vomiting: Status: Acute (2) Diabetes: Status: Acute (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 She tells me she is currently hungry and feeling okay. Has not vomited down in the ER after discussion with the emergency room physician unclear if this is gastroparesis gastroenteritis bowel obstruction etc. For now her abdomen seems soft bowel sounds are present at the will continue to observe will hydrate her with IV fluids at normal saline at 100 an hour. If patient continues to vomit CT scan of the abdomen should be considered. Diabetes?patient is a type I diabetic will need to clarify her home dose of insulin but I do believe she received 5 units of short acting insulin in the ER and 6 units of NovoLog after discussion with the ER physician. This should bring down her sugars. She does not appear to be in DKA there is no anion gap she is not acidotic. I do not think improved drip with necessary. Horry's disease?patient under stress. Will give stress dose steroids will need to clarify her home medications. But for now we will give 100 mg hydr ocortisone every 6 hours. Delirium?? Unclear if this is delirium or underlying dementia infection.. Patient denies any other significant symptoms but again difficult historian. Patient does have a mildly elevated white count we will add on a chest x-ray in the morning to make sure she does not have an aspiration pneumonia or other pneumonia leading to her vomiting and possible delirium Elevated LFTs significance unclear she is not tender to touch this should probably be rechecked in the next 24 to 48 hours if still elevated may require right upper quadrant ultrasound. If patient continues to vomit right upper quadrant ultrasound may be appropriate to look for stones. Hyperkalemia thought to be a type IV RTA in the past. Will see if she can tolerate Lokelma. will also give her 1 dose of calcium gluconate IV. She is already received insulin in the emergency room which should also help shift her potassium. Her potassium is currently 5.7 it has certainly been higher in the past without difficulty. Patient is a DNR/DNI. Will not place a phototypesetting equipment monitor. Dementia?at this point patient confused poor historian. She is at risk for in hospital deterioration and confusion. Numerous other medical problems. Her home medications are not clear. These will need to be clarified in the morning. DVT prophylaxis will hold off on starting DVT prophylaxis if she remains hosp italized more than 24 hours that should be considered. CODE STATUS was reviewed from paperwork from [facility] appears to be a DNR/DNI. Will continue to respect this. Winston Koehler DO, Pharm. D. Telehealth: Statement Statement Telehealth Visit: Today's History and Physical is provided via interactive telehealth by Winston Koehler DO.? Patient is located at [facility].? Provider is located at [facility].? Nursing staff assisted with the patient's exam. The visit being done today meets criteria for a telehealth visit and the patient or patient?s parent/guardian is aware the visit is a telehealth visit. Camera Start Time: 05:07 Camera End Time: 05:20
[2024-02-23] MEDS: CALCIUM GLUC 1,000MG/50 ML 1,000 MG/50 ML BAG 100 MG IVPB (06:24)
[2024-02-23] MEDS: 0.9 % SODIUM CHLORIDE 1000 ml 1,000 ML 100 ML IV ×2 (06:24→15:46)
--- NOTE | 2024-02-23 07:35 | PC.NURSE ---
pt to floor at 0445. Pt is very fatigued; it was difficult to get much of a response during initial assessment. Pt remains on 1L O2. Green liquid ostomy output.
--- NOTE | 2024-02-23 08:00 | XR_ITS ---
Patient: BELTRAN SOMMERS Facility:?[facility] Patient ID:?[id number] Site Patient ID:?[id number]. Site :?[id number] Study:?XRay-Chest 1 VIEW PORTABLE-02/23/2024 8:40:40 AM Ordering Physician:JAZ Final Report: INDICATION: Delirium. Leukocytosis. COMPARISON: 04/20/2023 TECHNIQUE: 1 view. FINDINGS: The patient is rotated leftward. Medical Devices: None. Lung Volumes: Adequate inspiration. No significant atelectasis. Lungs: Left basilar opacity consistent with atelectasis. Pleura and Pleural spaces: Small left pleural effusion. No pneumothorax. Mediastinum: Normal cardiomediastinal silhouette. Bony Thorax and Soft Tissues: Expansile lucent lesion of the right posterior 9th rib. IMPRESSION: 1. Expansile lucent lesion of the right posterior 9th rib. Differential diagnostic considerations include multiple myeloma and metastatic disease. Clinical re-evaluation is recommended. Consider further imaging characterization (CT), as clinically appropriate. 2. Small left pleural effusion. Associated left basilar atelectasis. Pneumonia is not excluded. Clinical correlation is recommended. Dictated by Grant Lynch MD @ 02/23/2024 8:51:24 AM ----- ADDENDUM ----- ADDENDUM: Report received by DR ROCA at 9:08 a.m. BOILER COVERER. Dictated by Grant Lynch MD @ Feb 23 2024 9:14AM Signed by:?Grant Lynch MD @02/23/2024 8:51:24 AM (Electronic Signature)
[2024-02-23 08:43] LABS: Lactate* 1.7 mmol/L (0.5-1.9)
[2024-02-23 09:00] LABS: Albumin* 3.3 g/dL (3.3-5.0)
[2024-02-23 09:01] LABS: Chloride* 106 mmol/L (96-114); Potassium* 4.6 mmol/L (3.6-5.1); Sodium* 130 mmol/L (135-149)
[2024-02-23 09:03] LABS: Alanine Aminotransferase* 47 U/L (4-35); Alkaline Phosphatase* 102 U/L (40-150); Anion Gap 1 mEq/L (7-15); Aspartate Amino Transferase* 33 U/L (12-35); Blood Urea Nitrogen* 33 mg/dL (7-30); Carbon Dioxide* 23 mmol/L (20-32); Creatinine* 1.4 mg/dL (0.5-1.5); Est. Creatinine Clearance* 20.72; Estimated Glomerular Filt Rate 37 ml/min; Glucose* 254 mg/dL (60-115); Total Protein* 5.8 g/dL (6.0-8.3)
[2024-02-23 09:04] LABS: Calcium* 9.5 mg/dL (8.4-10.6); Magnesium* 1.7 mg/dL (1.5-2.6); Phosphorus* 3.6 mg/dL (2.5-4.5)
[2024-02-23 09:15] LABS: Troponin I* 0.03 ng/mL (0.01-0.04)
--- NOTE | 2024-02-23 10:40 | P.IMPN_ITS ---
Progress Note: A&P Assessment and plan (1) Addisonian crisis: Problem details: - Patient presented with hyperkalemia, hyponatremia and vomiting consistent with addisonian or adrenal insufficiency crisis. Cause for this is uncertain. Differential diagnosis for this includes continued high output from her ostomy, gastroenteritis, - Continue with fludrocortisone 0.1 mg daily. - initially treat with stress doses of hydrocortisone. Resume 15 mg oral hydrocortisone every morning and 10 mg every evening when appropriate Status: Acute (2) Primary adrenocortical insufficiency: Problem details: -administering stress dose steroids, hydrocortisone 100 mg IV q.6 hours Status: Chronic (3) Vomiting: Problem details: - unclear if nausea and vomiting occurred 1st or subsequent to the addisonian crisis. Much improved now. 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 - consider Lokelma (can take TID for 48 hours) * per POL, indicates only basic interventions that would make her more comfortable and no aggressive life-sustaining interventions Status: Acute (5) Chronic hyponatremia: Problem details: - Primarily due to adrenal insufficiency. History of high ostomy output. Baseline Na low 130s - normal saline IV at 100 mL/hour, and consider restart supplemental sodium tabs Status: Acute (6) Diabetes: Problem details: - continue with scheduled low-dose long-acting insulin and institute sliding scale aspart insulin at this time. Status: Acute (7) Hyperglycemia due to diabetes mellitus: Problem details: - monitor and adjust insulin as warranted Status: Acute (8) Elevated LFTs: Problem details: - monitor. Status: Acute (9) Dementia: Problem details: - continue with supportive efforts Status: Acute (10) Diabetic gastroparesis: Problem details: -Monitor oral intake Status: Chronic (11) Abnormality of rib determined by X-ray: Problem details: - chest x-ray 02/23/2024 demonstrates expansile lucent lesion of right posterior 9th rib, possibility of multiple myeloma versus metastatic disease. - called and discussed abnormal finding with her son, Torey, . Plan for now is to treat underlying condition as specified for current hospital presentation and consider whether not to do any additional studies about the abnormal rib x-ray finding in the future. Status: Acute (12) Acute hyperglycemia: Status: Acute Plan 1. Unable to review impression and plans with patient. I did call and discuss my impression and plan with her son, Torey, [phone]. 2. Torey reiterates goal of care for comfort focus measures and not very aggressive interventions. He is agreeable with treating the addisonian crisis, dehydration, hyperglycemia. 3. Torey may call 24 hours a day for questions. He invited us to update him as needed 24 hours a day as well. Time Spent With Patient Total time spent: 60 minute Subjective Date Seen: 02/23/24 Interval history: Admission history of present illness: ... 88 year old... admitted through the emergency room. She is a markedly poor historian. She is not very interactive she answer some questions. She is unable to tell me why she is in the hospital. She just tells me she does not feel good. But when I ask her if she is hungry she tells me that she is. She denies having any pain. She denies being short of breath but I am really not able to get additional history. She apparently lives in a correction has a history of type 1 diabetes, adrenal insufficiency along with dementia. She per reports has had nausea and vomiting. She was brought into the emergency room to be evaluated. Workup in the emergency room did not show any acute findings other than an elevated glucose. She did not have an anion gap it was not felt to be DKA. Patient was not eating and drinking well, it was felt that she need ed to be hydrated [until] her eating and drinking improved, and so she has now been admitted to the medical floor. Unable to get any additional history from her. She is sleepy this morning. Upon calling her name and touching her hand she is arousable, briefly by opening her eyes, but not interacting. Appears comfortable. Receiving normal saline at 100 mL/hour. Exam Narrative: Exam Narrative: Sleepy. Arousable by call of name and touch of hand. Opens eyes and then closes eyes. Pupils equally round and reactive to light and accommodation. Conjugate gaze. Cranial nerves 3-12 otherwise grossly normal. No focal motor neurologic deficits. Lungs are clear to auscultation. Heart tones with regular rhythm. Abdomen with active bowel sounds, soft, nontender. Extremities without edema. No obvious cellulitis. Capillary refill less than 3 seconds in upper extremities. No cyanosis. Const: Vital Signs, click to edit/add: Vital Signs - 24 hr 02/23/24 02:13 02/23/24 04:23 02/23/24 05:00 Temperature 98.0 F 97.5 F L 99.7 F H Pulse Rate Pulse Rate [Pulse Oximeter] 106 H 115 H Respiratory Rate 24 20 24 Blood Pressure Blood Pressure [Le ft Upper Arm] 141/65 H 125/48 L Blood Pressure [Ri ght Arm] 128/61 Pulse Oximetry 92 94 94 Oxygen Delivery Me thod Room Air Nasal Cannula Nasal Cannula Oxygen Flow Rate 2 2 2 02/23/24 05:56 02/23/24 07:35 02/23/24 10:35 Temperature 97.3 F L 97.3 F L Pulse Rate 105 H 95 Pulse Rate [Pulse Oximeter] Respiratory Rate 24 20 20 Blood Pressure 97/50 L 111/71 Blood Pressure [Le ft Upper Arm] Blood Pressure [Ri ght Arm] Pulse Oximetry 90 93 95 Oxygen Delivery Me thod Nasal Cannula Nasal Cannula Nasal Cannula Oxygen Flow Rate 2 1 1 Labs Labs: Laboratory Results - last 24 hr 02/23/24 02/23/24 02/23/24 02:50 03:10 08:36 WBC 11.10 H RBC 4.78 Hgb 14.3 Hct 44.4 MCV 93 MCH 30 MCHC 32 RDW Coeff of Sharmaine 14.5 Plt Count 213 Neut % (Auto) 69.9 Lymph % (Auto) 20.3 [place] % (Auto) 7.7 Eos % (Auto) 1.2 Baso % (Auto) 0.5 Neut # (Auto) 7.80 H Lymph # (Auto) 2.30 [place] # (Auto) 0.90 Eos # (Auto) 0.10 Baso # (Auto) 0.10 Abs Immat Gran (auto) 0.00 Imm/Tot Granulo (auto) 0.4 VBG pH 7.304 L VBG pCO2 49 VBG pO2 < 30.1 VBG HCO3 24 Sodium 126 L 130 L Potassium 5.7 H 4.6 Chloride 97 106 Carbon Dioxide 22 23 Anion Gap 7 1 L BUN 34 H 33 H Creatinine 1.3 1.4 Estimated Creat Clear 22.24 20.72 Estimated GFR 40 37 Glucose 475 H* 254 H Lactate 2.7 H 1.7 Calcium 9.6 9.5 Phosphorus 3.6 Magnesium 1.7 Total Bilirubin 2.8 H 2.0 H Direct Bilirubin 0.0 AST 40 H 33 ALT 60 H 47 H Alkaline Phosphatase 131 102 Troponin I 0.03 C-Reactive Protein 4.9 H Total Protein 6.8 5.8 L Albumin 4.1 3.3 Urine Color Yellow Urine Appearance Clear Urine pH 5.0 Ur Specific [place] 1.020 Urine Protein Trace A Urine Glucose (UA) 3+ A Urine Ketones 1+ A Urine Blood Trace-lysed A Urine Nitrite Negative Urine Bilirubin Negative Urine Urobilinogen 0.2 Ur Leukocyte Esterase Trace A Urine RBC 0-2 Urine WBC 2-5 Ur Squamous Epith Cells Few Urine Bacteria Moderate A Urine Yeast Few A
--- NOTE | 2024-02-23 11:52 | PC.SOCIAL ---
Discharge planning: Called [facility] pt is on a bed hold in their custodial unit. [facility] is expecting pt to return at discharge. spice room worker to follow up as needed.
--- NOTE | 2024-02-23 13:38 | REH.OT ---
OT: Limited eval due to pt sleepy this am. Anticipating pt will return to SNF with 24 hour care with prior level of services at discharge. Patient unable to provide specifics with level of support she receives, she may benefit from therapies when returns if pt still below baseline with ADLs and mobility.
--- NOTE | 2024-02-23 14:02 | REH.PT ---
Unable to arouse pt for PT Eval this am and pm. Will Reattempt Eval tomorrow.
--- NOTE | 2024-02-23 18:46 | PC.NURSE ---
Pt slept during shift (05-21). Pt would wake up momentarily to name/ and or light shake. Pt was repositioned Q2. Pt?s blood sugars as follows- 7am :264; 11am: 204, 17: 201-No insulin given due to Pt not eating. Pt was bladder scanned around 1545 and max volume was 40 mL. Pt had a void before end of shift. Pt would wake up momentarily during repositioning through out the day.?
[2024-02-23] MEDS: SODIUM CHLORIDE 0.9 % (FLUSH) 10 ML SYRINGE 5 ML IVF (21:02)
[2024-02-23] MEDS: INSULIN ASPART 100 UNIT/ML SUBCUT (21:30)
[2024-02-24] VITALS (7 sets, daily range): BP systolic 99–119; BP diastolic 44–67; PULSE 84–92; RESP 16–20; TEMP 36.2–37.2; O2SAT 92–98
[2024-02-24] MEDS: HYDROCORTISONE SOD SUCCINATE 50 MG/ML inj 100 MG IVP ×3 (00:42→11:00)
[2024-02-24] MEDS: 0.9 % SODIUM CHLORIDE 1000 ml 1,000 ML 100 ML IV ×3 (02:54→22:24)
[2024-02-24 06:11] LABS: HCO3 VBG 19 mmol/L (21-28); Lactate* 1.4 mmol/L (0.5-1.9); PCO2 VBG 34 mmHG (40-50); PO2 VBG 54.2 mmHG (25-47); pH VBG 7.356 (7.32-7.43)
[2024-02-24 06:21] LABS: Basophils Percent Auto 0.1 % (0.0-3.0); Hemoglobin* 10.8 gm/dL (12.0-16.0); Immature Granulocytes Pct Auto 0.3 %; Lymphocytes Percent Auto 4.5 % (20-44); Mean Corpuscular HGB Conc 33 gm/dL (32-36); Mean Corpuscular Hemoglobin 30 pg (26-34); Mean Corpuscular Volume 93 fL (80-100); Monocytes Percent Auto 2.4 % (0.0-11.0); Neutrophils Percent Auto 92.7 % (42.0-72.0); Platelet Count* 187 K/uL (140-440); RDW Coefficient of Variation % 14.5 % (11.5-15.5); Red Blood Count 3.56 m/uL (4.00-5.20); White Blood Count* 14.08 K/uL (4.50-11.00)
[2024-02-24 06:23] LABS: Slide Review Reflex No
[2024-02-24 06:34] LABS: Chloride* 107 mmol/L (96-114); Potassium* 5.1 mmol/L (3.6-5.1); Sodium* 131 mmol/L (135-149)
[2024-02-24 06:37] LABS: Anion Gap 8 mEq/L (7-15); Blood Urea Nitrogen* 36 mg/dL (7-30); Carbon Dioxide* 16 mmol/L (20-32); Creatinine* 1.1 mg/dL (0.5-1.5); Est. Creatinine Clearance* 26.37; Estimated Glomerular Filt Rate 49 ml/min; Glucose* 313 mg/dL (60-115); Phosphorus* 4.4 mg/dL (2.5-4.5)
[2024-02-24 06:38] LABS: Calcium* 8.4 mg/dL (8.4-10.6); Magnesium* 1.7 mg/dL (1.5-2.6)
--- NOTE | 2024-02-24 07:02 | PC.NURSE ---
END OF SHIFT NOTE: PT PLEASANT AND COOPERATIVE. A&O TO SELF. DENIED CP, SOB, N/V. PT WAS NOT AMBULATED THIS SHIFT. TURNED AND REPOSITIONED FOR COMFORT AND OFFLOADING WEIGHT. SOFT BP?S 108/66, 99/49, 99/44. O2 SATS STABLE ON RA; AFEBRILE. NEW IV START TO RIGHT FOOT WITH NS@100. BS 211 AND 294. OSTOMY WITH DARK GREEN OUTPUT. GOWN CHANGED X2 D/T LEAKING OSTOMY. OSTOMY REENFORCED WITH TEGADERM. BED ALARM ON AND CALL LIGHT WITHIN PT?S REACH.
[2024-02-24] MEDS: INSULIN ASPART 100 UNIT/ML SUBCUT ×6 (09:01→20:46)
[2024-02-24] MEDS: HYDROCORTISONE 10 MG TABLET 15 MG PO (09:02)
[2024-02-24] MEDS: FLUDROCORTISONE ACETATE 0.1 MG TABLET 0.2 MG PO (09:02)
[2024-02-24] MEDS: LEVOTHYROXINE 75 MCG TABLET PO (11:00)
[2024-02-24] MEDS: DIPHENOXYLATE-ATROP 2.5-0.025 TABLET 2 TAB PO ×3 (12:06→20:45)
[2024-02-24] MEDS: SODIUM BICARBONATE 650 MG TABLET 1300 MG PO ×2 (12:07→17:23)
[2024-02-24] MEDS: SODIUM CHLORIDE 1 GM TABLET PO ×2 (12:07→17:23)
[2024-02-24] MEDS: PSYLLIUM HUSK (WITH SUGAR) 12 GM PACKET PO ×2 (12:07→17:23)
[2024-02-24] MEDS: SIMETHICONE 80 MG TAB.CHEW PO ×2 (13:54→20:45)
--- NOTE | 2024-02-24 15:12 | PC.SOCIAL ---
Pt has a [employer] Lean Engineer, Delmy Austin, and her phone number is [phone]. Call with updates as needed.
--- NOTE | 2024-02-24 16:02 | P.IMPN_ITS ---
Progress Note: A&P Assessment and plan (1) Addisonian crisis: Problem details: - Patient presented with hyperkalemia, hyponatremia and vomiting consistent with addisonian or adrenal insufficiency crisis. Cause for this is uncertain. Differential diagnosis for this includes continued high output from her ostomy, gastroenteritis, - Continue with fludrocortisone 0.1 mg daily. - initially treat with stress doses of hydrocortisone. Resume 15 mg oral hydrocortisone every morning and 10 mg every evening when appropriate Status: Acute (2) Primary adrenocortical insufficiency: Problem details: -administering stress dose steroids, hydrocortisone 100 mg IV q.6 hours. Will change to oral regimen. Status: Chronic (3) Vomiting: Problem details: - unclear if nausea and vomiting occurred 1st or subsequent to the addisonian crisis. Resolved. 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 - consider Lokelma (can take TID for 48 hours) * per POLST, indicates only basic interventions that would make her more comfortable and no aggressive life-sustaining interventions Status: Acute (5) Chronic hyponatremia: Problem details: - Primarily due to adrenal insufficiency. History of high ostomy output. Baseline Na low 130s - normal saline IV at 100 mL/hour, and consider restart supplemental sodium tabs Status: Acute (6) Diabetes: Problem details: - continue with scheduled low-dose long-acting insulin and institute sliding scale aspart insulin at this time. - add more insulin. Status: Acute (7) Hyperglycemia due to diabetes mellitus: Problem details: - monitor and adjust insulin as warranted Status: Acute (8) Elevated LFTs: Problem details: - monitor. Status: Acute (9) Dementia: Problem details: - continue with supportive efforts Status: Acute (10) Diabetic gastroparesis: Problem details: -Monitor oral intake Status: Chronic (11) Abnormality of rib determined by X-ray: Problem details: - chest x-ray 02/23/2024 demonstrates expansile lucent lesion of right posterior 9th rib, possibility of multiple myeloma versus metastatic disease. - called and discussed abnormal finding with her son, Torey, . Plan for now is to treat underlying condition as specified for current hospital presentation and consider whether not to do any additional studies about the abnormal rib x-ray finding in the future. Status: Acute (12) Acute hyperglycemia: Status: Acute Plan 1. Reviewed impression with the patient's son via telephone again. 2. Answered his questions 3. He is agreeable to above stated plans and recommendations Time Spent With Patient Total time spent: 40 minutes Subjective Date Seen: 02/24/24 Interval history: Admission history of present illness: ... 88 year old... admitted through the emergency room. She is a markedly poor historian. She is not very interactive she answer some questions. She is unable to tell me why she is in the hospital. She just tells me she does not feel good. But when I ask her if she is hungry she tells me that she is. She denies having any pain. She denies being short of breath but I am really not able to get additional history. She apparently lives in a senior care has a history of type 1 diabetes, adrenal insufficiency along with dementia. She per reports has had nausea and vomiting. She was brought into the emergency room to be evaluated. Workup in the emergency room did not show any acute findings other than an elevated glucose. She did not have an anion gap it was not felt to be DKA. Patient was not eating and drinking well, it was felt that she needed to be hydrated [until] her eating and drinking improved, and so she has now been admitted to the medical floor. Unable to get any additional history from her. Hospital day 2. Patient remains sleepy today. Arouses enough to drink nutritional supplement and water. Interacts. Answer some questions. Exam Narrative: Exam Narrative: I examined patient in her hospital room. No acute distress. Sleepy, arousable by talking with her and holding her hand. Opens her eyes. Informs me she feels well. Denies any pain, dyspnea, chest heaviness or pressure, aches, or pain. When awake is alert and oriented to self, not place or time yet. Dry mouth. Lungs are clear to auscultation. Heart tones with regular rhythm. Abdomen is soft, thin, nontender. Extremities without edema. No focal motor neurologic deficits. Able to follow simple 1 step commands. Const: Vital Signs, click to edit/add: Vital Signs - 24 hr 02/23/24 20:45 02/23/24 20:45 02/24/24 00:40 Temperature 97.5 F L 97.5 F L Pulse Rate [Pulse Oximeter] 82 82 87 Respiratory Rate 22 22 18 Blood Pressure [Ri ght Arm] 108/66 99/49 L Pulse Oximetry 94 94 Oxygen Delivery Me thod Room Air Room Air 02/24/24 03:00 02/24/24 07:59 02/24/24 11:01 Temperature 97.4 F L 97.2 F L 98.9 F Pulse Rate [Pulse Oximeter] 89 90 92 Respiratory Rate 20 18 16 Blood Pressure [Wv ght Arm] 99/44 L 117/67 119/58 L Pulse Oximetry 94 92 92 Oxygen Delivery Me thod Room Air Room Air Room Air 02/24/24 14:56 Temperature 98.2 F Pulse Rate [Pulse Oximeter] 91 Respiratory Rate 16 [facility] 119/64 Pulse Oximetry 98 Oxygen Delivery Me thod Room Air Labs Labs: Laboratory Results - last 24 hr 02/24/24 06:00 WBC 14.08 H RBC 3.56 L Hgb 10.8 L Hct 33.0 MCV 93 MCH 30 MCHC 33 RDW Coeff of Sharmaine 14.5 Plt Count 187 Neut % (Auto) 92.7 H Lymph % (Auto) 4.5 L [place] % (Auto) 2.4 Eos % (Auto) 0.0 Baso % (Auto) 0.1 Neut # (Auto) 13.10 H Lymph # (Auto) 0.60 L [place] # (Auto) 0.30 Eos # (Auto) 0.00 Baso # (Auto) 0.00 Abs Immat Gran (auto) 0.00 Imm/Tot Granulo (auto) 0.3 VBG pH 7.356 VBG pCO2 34 L VBG pO2 54.2 H VBG HCO3 19 L Sodium 131 L Potassium 5.1 Chloride 107 Carbon Dioxide 16 L Anion Gap 8 BUN 36 H Creatinine 1.1 Estimated Creat Clear 26.37 Estimated GFR 49 Glucose 313 H Lactate 1.4 Calcium 8.4 Phosphorus 4.4 Magnesium 1.7
--- NOTE | 2024-02-24 19:25 | PC.NURSE ---
Pt slept during the morning. Pt started to be more awake late morning-early afternoon. Pt was repositioned Q2.?Pt was able to tolerate taking oral intake and medications. Pt ate lunch in early afternoon. Pt up to chair with PT.? Pt?s blood sugars as follows- 7am :277; 11am: 434,- notified; see EMAR for intervention. 13: 433 and 14: 417- MD notified and did not want any additional insulin administered. 17: 364; see EMAR for insulin administration. Pt?s ostomy changed around 1430.?
[2024-02-24] MEDS: HYDROCORTISONE 10 MG TABLET PO (20:45)
[2024-02-25] VITALS (7 sets, daily range): BP systolic 110–134; BP diastolic 60–82; PULSE 71–94; RESP 16–20; TEMP 36.6–37.1; O2SAT 94–98
[2024-02-25] MEDS: ACETAMINOPHEN 325 MG TABLET 650 MG PO (00:15)
--- NOTE | 2024-02-25 06:20 | PC.NURSE ---
End of shift [id number]: Alert to self. Pleasant and cooperative. VSS w/ sats >90% on RA. Turn and repo while in bed. Inc of urine. Ostomy checked often and emptied. Pt reporting left leg pain overnight. PRN Tylenol given. Pt sleeping on reassessment. Blood sugar overnight was 97. Levemir held. Bed alarm in place.
[2024-02-25] MEDS: LEVOTHYROXINE 75 MCG TABLET PO (06:36)
[2024-02-25] MEDS: 0.9 % SODIUM CHLORIDE 1000 ml 1,000 ML 100 ML IV (08:24)
[2024-02-25 08:48] LABS: HCO3 VBG 19 mmol/L (21-28); Hematocrit 31.3 % (33.0-51.0); Hemoglobin* 10.3 gm/dL (12.0-16.0); Mean Corpuscular HGB Conc 33 gm/dL (32-36); Mean Corpuscular Hemoglobin 31 pg (26-34); Mean Corpuscular Volume 94 fL (80-100); PCO2 VBG 34 mmHG (40-50); Platelet Count* 177 K/uL (140-440); Red Blood Count 3.33 m/uL (4.00-5.20); White Blood Count* 11.17 K/uL (4.50-11.00); pH VBG 7.353 (7.32-7.43)
[2024-02-25 08:50] LABS: Slide Review Reflex No
[2024-02-25 09:04] LABS: Albumin* 2.9 g/dL (3.3-5.0); Chloride* 112 mmol/L (96-114); Sodium* 134 mmol/L (135-149)
[2024-02-25 09:06] LABS: Anion Gap 5 mEq/L (7-15); Carbon Dioxide* 17 mmol/L (20-32); Est. Creatinine Clearance* 29.01; Estimated Glomerular Filt Rate 55 ml/min
[2024-02-25 09:07] LABS: Blood Urea Nitrogen* 38 mg/dL (7-30); Calcium* 8.5 mg/dL (8.4-10.6); Glucose* 123 mg/dL (60-115); Phosphorus* 2.8 mg/dL (2.5-4.5)
[2024-02-25] MEDS: HYDROCORTISONE 10 MG TABLET 15 MG PO (09:09)
[2024-02-25] MEDS: DIPHENOXYLATE-ATROP 2.5-0.025 TABLET 2 TAB PO ×4 (09:10→21:23)
[2024-02-25] MEDS: SIMETHICONE 80 MG TAB.CHEW PO ×3 (09:11→21:23)
[2024-02-25] MEDS: SODIUM BICARBONATE 650 MG TABLET 1300 MG PO ×3 (09:11→17:45)
[2024-02-25] MEDS: SERTRALINE 50 MG TABLET PO (09:11)
[2024-02-25] MEDS: FLUDROCORTISONE ACETATE 0.1 MG TABLET 0.2 MG PO (09:12)
[2024-02-25] MEDS: PSYLLIUM HUSK (WITH SUGAR) 12 GM PACKET PO ×3 (09:21→17:47)
[2024-02-25] MEDS: INSULIN ASPART 100 UNIT/ML SUBCUT ×4 (10:46→17:44)
[2024-02-25] MEDS: SODIUM CHLORIDE 1 GM TABLET PO ×3 (10:57→17:45)
--- NOTE | 2024-02-25 15:13 | PC.NURSE ---
shift note: pt up 1/walker to recliner & BSC. Pt had periods of being sleepy and needing to be awoke to name with slight touch. ls clr. pt afeb. colostomy intact. 100cc soft stool emptied from bag. bag emptied gas x3. IV to foot intact.
--- NOTE | 2024-02-25 15:19 | PC.NURSE ---
shift note: update given to Gianan LANDRY @ [employer] this a.m by phone. Dr. 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
--- NOTE | 2024-02-25 15:32 | P.IMPN_ITS ---
Progress Note: A&P Assessment and plan (1) Addisonian crisis: Problem details: - Patient presented with hyperkalemia, hyponatremia and vomiting consistent with addisonian or adrenal insufficiency crisis. Cause for this is uncertain. Differential diagnosis for this includes continued high output from her ostomy, gastroenteritis, - Continue with fludrocortisone 0.1 mg daily. - initially treat with stress doses of hydrocortisone. Resume 15 mg oral hydrocortisone every morning and 10 mg every evening when appropriate Status: Acute (2) Primary adrenocortical insufficiency: Problem details: -administering stress dose steroids, hydrocortisone 100 mg IV q.6 hours. Tolerating oral regimen now. Status: Chronic (3) Vomiting: Problem details: - unclear if nausea and vomiting occurred 1st or subsequent to the addisonian crisis. Resolved. 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 - consider Lokelma (can take TID for 48 hours) if needed, though presently is a non issue * per POLST, indicates only basic interventions that would make her more comfortable and no aggressive life-sustaining interventions Status: Acute (5) Chronic hyponatremia: Problem details: - Primarily due to adrenal insufficiency. History of high ostomy output. Bas marbella Na low 130s - change normal saline IV to 75 mL/hour, and restart supplemental sodium tabs tomorrow Status: Acute (6) Diabetes: Problem details: - continue with scheduled low-dose long-acting insulin and institute sliding scale aspart insulin at this time. - continue to monitor and adjust insulin as warranted Status: Acute (7) Hyperglycemia due to diabetes mellitus: Problem details: - monitor and adjust insulin as warranted Status: Acute (8) Elevated LFTs: Problem details: - monitor. Status: Acute (9) Dementia: Problem details: - continue with supportive efforts Status: Acute (10) Diabetic gastroparesis: Problem details: -Monitor oral intake Status: Chronic (11) Abnormality of rib determined by X-ray: Problem details: - chest x-ray 02/23/2024 demonstrates expansile lucent lesion of right posterior 9th rib, possibility of multiple myeloma versus metastatic disease. - called and discussed abnormal finding with her son, Torey, . Plan for now is to treat underlying condition as specified for current hospital presentation and consider whether not to do any additional studies about the abnormal rib x-ray finding in the future. Status: Acute (12) Acute hyperglycemia: Status: Acute Plan 1. Attempted calling her son a couple of times today with no answer 2. Will continue to try to work closely with her son 3. Generally speaking patient is making slow and steady progress and improvement. Continue with current efforts. Time Spent With Patient Total time spent: 40 minutes Subjective Date Seen: 02/25/24 Interval history: Admission history of present illness: ... 88 year old... admitted through the emergency room. She is a markedly poor historian. She is not very interactive she answer some questions. She is unable to tell me why she is in the hospital. She just tells me she does not feel good. But when I ask her if she is hungry she tells me that she is. She denies having any pain. She denies being short of breath but I am really not able to get additional history. She apparently lives in a alf has a history of type 1 diabetes, adrenal insufficiency along with dementia. She per reports has had nausea and vomiting. She was brought into the emergency room to be evaluated. Workup in the emergency room did not show any acute findings other than an elevated glucose. She did not have an anion gap it was not felt to be DKA. Patient was not eating and drinking well, it was felt that she needed to be hydrated [until] her eating and drinking improved, and so she has now been admitted to the medical floor. Unable to get any additional history from her. Hospital day 3. While the patient remains sleepy, she is arousing for longer periods of time, interacting more appropriately, actually able to feed herself, assisting in transfers. Gradual improvement. Denies pain. Expresses gratitude. Exam Narrative: Exam Narrative: Examined in her in her room. Appears comfortable. Sleepy but easily arousable with call of name and touch of hand. Oriented to self. When awake is alert and cooperative. Lungs are clear to auscultation. Heart tones with regular rhythm. Abdomen with active bowel sounds, soft, nontender. Starting to have more output from her ostomy than previously. Weight today 49.9 kg, yesterday 48.9 kg, day prior was 46.9 kg. Input and output demonstrate net positive balance since she has been in hospital. Const: Vital Signs, click to edit/add: Vital Signs - 24 hr 02/24/24 20:00 02/24/24 23:04 02/25/24 03:46 Temperature 98.1 F Pulse Rate [Pulse Oximeter] 84 86 77 Respiratory Rate 18 16 18 [facility] 105/60 104/51 L 110/60 Pulse Oximetry 94 97 98 Oxygen Delivery Me thod Room Air Room Air Room Air Oxygen Flow Rate 02/25/24 08:28 02/25/24 10:59 02/25/24 11:00 Temperature 97.8 F 97.8 F 97.8 F Pulse Rate [Pulse Oximeter] 71 94 94 Respiratory Rate 16 18 18 Blood Pressure [[facility]] 113/60 117/82 115/78 Pulse Oximetry 96 94 94 Oxygen Delivery Me thod Room Air Room Air Room Air Oxygen Flow Rate 0 Labs Labs: Laboratory Results - last 24 hr 02/25/24 08:42 WBC 11.17 H RBC 3.33 L Hgb 10.3 L Hct 31.3 L MCV 94 MCH 31 MCHC 33 Plt Count 177 VBG pH 7.353 VBG pCO2 34 L VBG pO2 41.0 VBG HCO3 19 L Sodium 134 L Potassium 4.0 Chloride 112 Carbon Dioxide 17 L Anion Gap 5 L BUN 38 H Creatinine 1.0 Estimated Creat Clear 29.01 Estimated GFR 55 Glucose 123 H Calcium 8.5 Phosphorus 2.8 Albumin 2.9 L
[2024-02-25] MEDS: HYDROCORTISONE 10 MG TABLET PO (21:23)
[2024-02-26 02:52] VITALS: BP 137/72; PULSE 84; RESP 22; TEMP 36.8; O2SAT 92
[2024-02-26] MEDS: LEVOTHYROXINE 75 MCG TABLET PO (06:13)
[2024-02-26 06:32] LABS: HCO3 VBG 18 mmol/L (21-28); PCO2 VBG 31 mmHG (40-50); PO2 VBG 60.6 mmHG (25-47); pH VBG 7.366 (7.32-7.43)
[2024-02-26 06:40] LABS: Hematocrit 31.7 % (33.0-51.0); Hemoglobin* 10.3 gm/dL (12.0-16.0); Mean Corpuscular HGB Conc 33 gm/dL (32-36); Mean Corpuscular Hemoglobin 31 pg (26-34); Mean Corpuscular Volume 94 fL (80-100); Platelet Count* 188 K/uL (140-440); Red Blood Count 3.36 m/uL (4.00-5.20); White Blood Count* 9.47 K/uL (4.50-11.00)
--- NOTE | 2024-02-26 06:44 | PC.NURSE ---
End of shift report [id number]: Pleasant and cooperative with cares. Denies any pain this shift. Blood glucose at 2100 MD Suzanna updated and verbal to hold Detemir 6units for low blood sugar. BG 361 at 0430. Colostomy bag continues to have high output, at 0000 bag was leaking to the right lateral side, appliance change completed. Transfers with min assist x 1 with gait belt and walker. Iv patent to right ankle.
[2024-02-26 06:45] LABS: Slide Review Reflex No
[2024-02-26 07:02] LABS: Albumin* 2.7 g/dL (3.3-5.0); Chloride* 110 mmol/L (96-114); Sodium* 132 mmol/L (135-149)
[2024-02-26 07:03] LABS: Potassium* 3.9 mmol/L (3.6-5.1)
[2024-02-26 07:05] LABS: Alanine Aminotransferase* 34 U/L (4-35); Alkaline Phosphatase* 76 U/L (40-150); Anion Gap 3 mEq/L (7-15); Aspartate Amino Transferase* 39 U/L (12-35); Bilirubin Total* 0.7 mg/dL (0.1-1.5); Blood Urea Nitrogen* 27 mg/dL (7-30); Calcium* 8.1 mg/dL (8.4-10.6); Carbon Dioxide* 19 mmol/L (20-32); Creatinine* 0.8 mg/dL (0.5-1.5); Est. Creatinine Clearance* 29.01; Estimated Glomerular Filt Rate 72 ml/min
[2024-02-26 07:16] LABS: Glucose* 361 mg/dL (60-115)
[2024-02-26 07:36] VITALS: BP 134/74; PULSE 77; RESP 14; TEMP 36.6; O2SAT 97
[2024-02-26] MEDS: PSYLLIUM HUSK (WITH SUGAR) 12 GM PACKET PO ×3 (08:59→17:33)
[2024-02-26] MEDS: INSULIN ASPART 100 UNIT/ML SUBCUT ×4 (09:00→12:54)
[2024-02-26] MEDS: DIPHENOXYLATE-ATROP 2.5-0.025 TABLET 2 TAB PO ×4 (09:01→21:20)
[2024-02-26] MEDS: FLUDROCORTISONE ACETATE 0.1 MG TABLET 0.2 MG PO (09:01)
[2024-02-26] MEDS: SERTRALINE 50 MG TABLET PO (09:01)
[2024-02-26] MEDS: SODIUM CHLORIDE 1 GM TABLET PO ×3 (09:01→17:33)
[2024-02-26] MEDS: HYDROCORTISONE 10 MG TABLET 15 MG PO (09:01)
[2024-02-26] MEDS: SODIUM BICARBONATE 650 MG TABLET 1300 MG PO ×3 (09:01→17:33)
[2024-02-26] MEDS: SIMETHICONE 80 MG TAB.CHEW PO ×3 (09:01→21:20)
[2024-02-26 11:16] VITALS: BP 132/69; PULSE 95; RESP 16; TEMP 36.4; O2SAT 97
--- NOTE | 2024-02-26 13:32 | PM.IMPN1 ---
Progress Note: A&P Assessment and plan (1) Addisonian crisis: Problem details: - Patient presented with hyperkalemia, hyponatremia and vomiting consistent with addisonian or adrenal insufficiency crisis. Cause for this is uncertain. Differential diagnosis for this includes continued high output from her ostomy, gastroenteritis, - Continue with fludrocortisone 0.1 mg daily. - initially treat with stress doses of hydrocortisone. Resume 15 mg oral hydrocortisone every morning and 10 mg every evening when appropriate - 02/25: Back to her baseline level of alertness and orientation today. Status: Acute (2) Primary adrenocortical insufficiency: Problem details: -administered stress dose steroids, hydrocortisone 100 mg IV q.6 hours x 6 doses. Tolerating usual oral regimen now, 15 mg of hydrocortisone every morning and 10 mg every evening. Status: Chronic (3) Vomiting: Problem details: - unclear if nausea and vomiting occurred 1st or subsequent to the addisonian crisis. Resolved. 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 - consider Lokelma (can take TID for 48 hours) if needed, though presently is a non issue * per POLST, indicates only basic interventions that would make her more comfortable and no aggressive life-sustaining interventions Status: Acute (5) Chronic hyponatremia: Problem details: - Primarily due to adrenal insufficiency. History of high ostomy output. Baseline Na low 130s - saline lock IV. Status: Acute (6) Diabetes: Problem details: - continue with scheduled low-dose long-acting insulin and institute sliding scale aspart insulin at this time. - continue to monitor and adjust insulin as warranted Status: Acute (7) Hyperglycemia due to diabetes mellitus: Problem details: - monitor and adjust insulin as warranted Status: Acute (8) Elevated LFTs: Problem details: - monitor. Status: Acute (9) Dementia: Problem details: - continue with supportive efforts Status: Acute (10) Diabetic gastroparesis: Problem details: -Monitor oral intake Status: Chronic (11) Abnormality of rib determined by X-ray: Problem details: - chest x-ray 02/23/2024 demonstrates expansile lucent lesion of right posterior 9th rib, possibility of multiple myeloma versus metastatic disease. - called and discussed abnormal finding with her son, Torey, . Plan for now is to treat underlying condition as specified for current hospital presentation and consider whether not to do any additional studies about the abnormal rib x-ray finding in the future. Status: Acute (12) Acute hyperglycemia: Status: Acute Plan 1. Reviewed impression with patient 2. I called and discuss the patient's condition with her son, Torey, this morning. I answered his questions. He apologize for not being available for me to reach yesterday. 3. Will continue with current level of care for patient to see how she does without any support, including no IV fluids, with anticipation of possibly discharging back to the [address] [place] [address] as early as tomorrow if she does well overnight. 4. Patient and son are agreeable with above stated plans and recommendations. Time Spent With Patient Total time spent: 45 minute Subjective Date Seen: 02/26/24 Interval history: Admission history of present illness: ... 88 year old... admitted through the emergency room. She is a markedly poor historian. She is not very interactive she answer some questions. She is unable to tell me why she is in the hospital. She just tells me she does not feel good. But when I ask her if she is hungry she tells me that she is. She denies having any pain. She denies being short of breath but I am really not able to get additional history. [facility] has a history of type 1 diabetes, adrenal insufficiency along with dementia. She per reports has had nausea and vomiting. She was brought into the emergency room to be evaluated. Workup in the emergency room did not show any acute findings other than an elevated glucose. She did not have an anion gap it was not felt to be DKA. Patient was not eating and drinking well, it was felt that she needed to be hydrated [until] her eating and drinking improved, and so she has now been admitted to the medical floor. Unable to get any additional history from her. Hospital day 4. Patient is awake today. Interactive. Alert and oriented to self and place, not to time or situation. Appears to be back to her baseline level of alertness and awareness and ability to express herself. As I speak with her about her son, Torey, she is able to tell me about him. Denies aches or pains. Acknowledges being hungry. No other concerns. Exam Narrative: Exam Narrative: Examine the patient in her hospital room. Appears comfortable and in no acute distress. Vision and hearing are adequate. Alert and oriented to self and place, but not to time or situation. Appears to be back to her baseline level of alertness and orientation. Gracious in her demeanor and grateful. Articulate and cooperative. Lungs are clear to auscultation. Heart tones with regular rhythm. Abdomen with active bowel sounds, soft, nontender. Extremities without edema. No focal motor neurologic deficits. Const: Vital Signs, click to edit/add: Vital Signs - 24 hr 02/25/24 16:03 02/25/24 19:00 02/25/24 23:00 Temperature 98.7 F 98.4 F Pulse Rate [Pulse Oximeter] 85 79 74 Respiratory Rate 16 18 20 Blood Pressure [Ri ght Arm] 134/71 113/60 Pulse Oximetry 95 97 Oxygen Delivery Me thod Room Air Room Air Oxygen Flow Rate 02/25/24 23:00 02/26/24 02:52 02/26/24 07:36 Temperature 98.4 F 98.3 F 97.8 F Pulse Rate [Pulse Oximeter] 74 84 77 Respiratory Rate 20 22 14 Blood Pressure [Ri ght Arm] 110/62 137/72 134/74 Pulse Oximetry 95 92 97 Oxygen Delivery Me thod Room Air Room Air Room Air Oxygen Flow Rate 0 02/26/24 11:16 Temperature 97.5 F L Pulse Rate [Pulse Oximeter] 95 Respiratory Rate 16 Blood Pressure [Ri ght Arm] 132/69 Pulse Oximetry 97 Oxygen Delivery Me thod Room Air Oxygen Flow Rate Documenting provider has reviewed patient's vital signs: yes Labs Labs: Laboratory Results - last 24 hr 02/26/24 06:10 WBC 9.47 RBC 3.36 L Hgb 10.3 L Hct 31.7 L MCV 94 MCH 31 MCHC 33 Plt Count 188 VBG pH 7.366 VBG pCO2 31 L VBG pO2 60.6 H VBG HCO3 18 L Sodium 132 L Potassium 3.9 Chloride 110 Carbon Dioxide 19 L Anion Gap 3 L BUN 27 Creatinine 0.8 Estimated Creat Clear 29.01 Estimated GFR 72 Glucose 361 H* Calcium 8.1 L Total Bilirubin 0.7 Direct Bilirubin 0.0 AST 39 H ALT 34 Alkaline Phosphatase 76 Total Protein 5.0 L Albumin 2.7 L
[2024-02-26 14:32] VITALS: BP 165/87; PULSE 97; RESP 16; TEMP 36.5; O2SAT 96
--- NOTE | 2024-02-26 15:42 | P.DS_ITS ---
DS: Providers Provider Date Seen: 02/26/24 Date of admission: 02/23/24 08:57 Primary care physician: Onur Schreiber MD Admitting Clinician: Winston Koehler DO Consults: 02/23/24 06:14 Consult to Occupational Therapy [CONS] Routine Comment: Reason(s) for OT Consult:: Difficulty Managing ADLs Any Restrictions?:: No Restrictions Consult to Physical Therapy [CONS] Routine Comment: Reason(s) for PT Consult:: Weakness Any Restrictions?:: No Restrictions Attending Physician on discharge: Sriram Parsons MD Date of Discharge: 02/27/24 DS: Diagnosis Discharge Diagnosis (1) Addisonian crisis: Status: Acute Problem details: -unclear why she had seizure; I started her empirically on high dose hydrocortisone while we sort out the seizures. She has presented before in adrenal crisis albiet usually with electrolyte abnl. -monitor blood sugars (2) Primary adrenocortical insufficiency: Status: Chronic Problem details: -administered stress dose steroids, hydrocortisone 100 mg IV q8 -hold home dose fludrocortisone 0.3mg qd, hydrocortisone 20mg bid for now -remains obtunded from Ativan; continue NPO and monitoring seizure status (3) Covington's disease: Status: Acute Problem details: -supported with stress dose steroids (4) Hyperglycemia due to diabetes mellitus: Status: Inactive Problem details: - monitor and adjust insulin as warranted (5) Diabetic gastroparesis: Status: Inactive Problem details: Tolerating p.o. 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 - consider Lokelma (can take TID for 48 hours) if needed, though presently is a non issue * per POL, indicates only basic interventions that would make her more comfortable and no aggressive life-sustaining interventions (8) Chronic hyponatremia: Status: Acute Problem details: - Primarily due to adrenal insufficiency. History of high ostomy output. Baseline Na low 130s (9) Acute hyperglycemia: Status: Inactive (10) Diabetes: Status: Acute Problem details: -glucose normal in the ED (151), will order q4h accuchecks and SSI. A1C 8.9 -home meds - lantus 6 units daily, aspart 5 units with meals + sliding scale - restart home meds once awake and eating -Patient is quite brittle with her diabetes. She has type 1 diabetes so requires regular insulin dosing but also requires regular p.o. food and fluid. Due to alterations in mental status, variations in oral intake and ostomy output managing her nutrition, blood sugar, insulin has been difficult. (11) Elevated LFTs: Status: Inactive Problem details: - monitor. (12) Chronic pain: Status: Acute Problem details: Currently on morphine 15mg tid (UDS opiates positive). This has been used for chronic pain in her back from compression fractures as well as generalized pain. It may also have benefits for her high output ostomy. (13) Elevated liver transaminase level: Status: Inactive Problem details: History of cholecystectomy. Cause of elevated LFTs is unknown. Not having obvious symptoms. (14) Dementia: Status: Acute Problem details: - continue with supportive efforts (15) Abnormality of rib determined by X-ray: Status: Acute Problem details: - no hypoxia upon admission. will let day team decide about imaging chest. - chest x-ray 02/23/2024 demonstrates expansile lucent lesion of right posterior 9th rib, possibility of multiple myeloma versus metastatic disease. - called and discussed abnormal finding with her son, Torey, . Plan for now is to treat underlying condition as specified for current hospital presentation and consider whether not to do any additional studies about the abnormal rib x-ray finding in the future. 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 88 year old... admitted through the emergency room. She is a markedly poor historian. She is not very interactive she answer some questions. She is unable to tell me why she is in the hospital. She just tells me she does not feel good. But when I ask her if she is hungry she tells me that she is. She denies having any pain. She denies being short of breath but I am really not able to get additional history. She apparently lives in a custodial has a history of type 1 diabetes, adrenal insufficiency along with dementia. She per reports has had nausea and vomiting. She was brought into the emergency room to be evaluated. Workup in the emergency room did not show any acute findings other than an elevated glucose. She did not have an anion gap it was not felt to be DKA. Patient was not eating and drinking well, it was felt that she needed to be hydrated [until] her eating and drinking improved, and so she has now been admitted to the medical floor. Unable to get any additional history from her. In-hospital she was treated for addisonian crisis with stress doses of hydrocortisone, normal saline IV fluids, and NPO status until such time as she was more awake, alert, and able to demonstrate that she is able to swallow safely. Eventually we transitioned her to her oral medications, including her usual doses of hydrocortisone and fludrocortisone, and then stop the IV saline. She continued to do well thereafter. For details of her various problems that were addressed while in the hospital please see the above summary statements. Noteworthy is that a chest x-ray obt ained on hospital admissions suggests the possibility of patient having either multiple myeloma or metastatic neoplasm with the abnormality noted on the right posterior 9th rib. The plan to address this for now is for the patient family to consider. Options discussed with her son, Torey, include additional testing verses doing nothing in addition to what we have already done to simply identify that this problem is present and treat palliatively. Status at Discharge Functional status at discharge: uses cane/walker Overall status at discharge: patient is progressing back to baseline Time Spent with Patient Time attestation: Total time spent providing and/or coordinating discharge services: Exam Narrative: Exam Narrative: Examine the patient in her hospital room. Appears comfortable and in no acute distress. Vision and hearing are adequate. Alert and oriented to self and place, but not to time or situation. Appears to be back to her baseline level of alertness and orientation. Gracious in her demeanor and grateful. Articulate and cooperative. Lungs are clear to auscultation. Heart tones with regular rhythm. Abdomen with active bowel sounds, soft, nontender. Extremities without edema. No focal motor neurologic deficits. Const: Vital Signs, click to edit/add: Vital Signs - 24 hr 02/25/24 16:03 02/25/24 19:00 02/25/24 23:00 Temperature 98.7 F 98.4 F Pulse Rate [Pulse Oximeter] 85 79 74 Respiratory Rate 16 18 20 Blood Pressure [Ri ght Arm] 134/71 113/60 Pulse Oximetry 95 97 Oxygen Delivery Me thod Room Air Room Air Oxygen Flow Rate 02/25/24 23:00 02/26/24 02:52 02/26/24 07:36 Temperature 98.4 F 98.3 F 97.8 F Pulse Rate [Pulse Oximeter] 74 84 77 Respiratory Rate 20 22 14 Blood Pressure [Ri ght Arm] 110/62 137/72 134/74 Pulse Oximetry 95 92 97 Oxygen Delivery Me thod Room Air Room Air Room Air Oxygen Flow Rate 0 02/26/24 11:16 02/26/24 14:32 Temperature 97.5 F L 97.7 F Pulse Rate [Pulse Oximeter] 95 97 Respiratory Rate 16 16 Blood Pressure [Ri ght Arm] 132/69 165/87 H Pulse Oximetry 97 96 Oxygen Delivery Me thod Room Air Room Air Oxygen Flow Rate Documenting provider has reviewed patient's vital signs: yes DS: Data Data Completed and Pending Completed studies during hospitalization: Procedures Drainage of Stomach with Drainage Device, Via Natural or Artificial Opening (05/02/22) Insertion of Infusion Device into Left Internal Jugular Vein, Percutaneous Approach (05/02/22) Labs on day of discharge: Labs from last 24 hours 02/26/24 06:10 WBC 9.47 RBC 3.36 L Hgb 10.3 L Hct 31.7 L MCV 94 MCH 31 MCHC 33 Plt Count 188 VBG pH 7.366 VBG pCO2 31 L VBG pO2 60.6 H VBG HCO3 18 L Sodium 132 L Potassium 3.9 Chloride 110 Carbon Dioxide 19 L Anion Gap 3 L BUN 27 Creatinine 0.8 Estimated Creat Clear 29.01 Estimated GFR 72 Glucose 361 H* Calcium 8.1 L Total Bilirubin 0.7 Direct Bilirubin 0.0 AST 39 H ALT 34 Alkaline Phosphatase 76 Total Protein 5.0 L Albumin 2.7 L Imaging Chest x-ray: Attestation: I have reviewed the pertinent imaging results. Radiologist's impression: IMPRESSION: 1. Expansile lucent lesion of the right posterior 9th rib. Differential diagnostic considerations include multiple myeloma and metastatic disease. Clinical re-evaluation is recommended. Consider further imaging characterization (CT), as clinically appropriate. 2. Small left pleural effusion. Associated left basilar atelectasis. Pneumonia is not excluded. Clinical correlation is recommended. Discharge Plan Discharge Disposition: er [facility] Date of Admission: 02/23/24 08:57 Attending Provider on Discharge: Sriram Parsons Consulting Providers: Sriram Parsons Primary Care Provider: Onur Schreiber Anticipated Discharge Date/Time: 02/27/24 11:00 Discharge Medications: Continued acetaminophen 500 mg capsule 1,000 mg PO TID PRN ondansetron HCl 4 mg tablet 4 mg PO Q6H PRN simethicone 80 mg tablet,chewable 80 mg PO TID loperamide 2 mg Capsule 4 mg PO BID PRN sodium chloride 1,000 mg Tablet,Soluble 1,000 mg PO TIDWM 30 Days Qty: 90 0RF hydrocortisone 5 mg tablet 20 mg PO BID levothyroxine 75 mcg tablet 75 mcg PO DAILY estradiol 0.01 % (0.1 mg/gram) cream 1 appful VAGINAL .MOTH@HS Rx Instructions: FRI, coenzyme Q10 100 mg capsule 100 mg PO HS olopatadine 0.2 % drops 1 drp ophthalmic (eye) DAILY cholecalciferol (vitamin D3) 50 mcg (2,000 unit) tablet 4,000 unit PO HS Women's One Daily 18 mg iron-400 mcg-500 mg Ca tablet 1 tab PO DAILY vitamin B complex [Vitamins B Complex] Capsule 1 cap PO DAILY Probiotic 3 billion cell capsule 3,000 mmu cells PO DAILY Rx Instructions: administer with a meal sertraline 50 mg tablet 50 mg PO DAILY glucose [Dex4 Glucose] 4 gram tablet,chewable 4 g PO Q15M PRN aspirin 81 mg tablet,chewable 81 mg PO HS Glucagon Emergency Kit (human) 1 mg recon soln 1 mg IM ONCE PRN insulin aspart U-100 100 unit/mL (3 mL) insulin pen 7 - 10 unit subcut TIDWM Rx Instructions: 10 UNITS IN AM 7 UNIT AT LUNCH 8 UNIT SUPPER insulin aspart U-100 100 unit/mL (3 mL) insulin pen 5 sliding scale dose subcut USEASDIRECTD Rx Instructions: 0-5 UNITS PER SLIDING SCALE nitroglycerin 0.4 mg tablet, sublingual 0.4 mg sublingual Q5M PRN Metamucil (with sugar) 3.4 gram Powder In Packet 1 tbsp PO TIDWM Qty: 1045 0RF diphenoxylate-atropine 2.5-0.025 mg Tablet 2 tab PO QID Qty: 240 0RF sodium bicarbonate 650 mg Tablet 1,300 mg PO TIDWM Qty: 180 0RF morphine 15 mg tablet extended release 15 mg PO TID Changed insulin glargine [Lantus Solostar U-100 Insulin] 100 unit/mL (3 mL) insulin pen 6 unit SUBCUT DAILY Qty: 15 0RF No Action fludrocortisone 0.1 mg Tablet 0.3 mg PO DAILY Discharge Orders: Discharge Order (Routine); Ordered 02/27/24 Ordered By: Adriel Rodriguez Additional Instructions: 1. Primary care physician to consider establishing a plan to deal with Addisonian Crisis prevention and treatment in the SNF. Activity Level: Activity as Tolerated, Up with assist and Use Walker Discharge Diet: Regular Follow Up Appointments: Onur Schreiber MD [Primary Care Provider] - Forms: [facility] Info Instructions Admit to: SNF Discharge Potential: Poor Length of Stay: >90 days Can use facility standing orders?: Yes Code Status: DNR/DNI Rehab Potential: Fair Therapy: Physical Therapy and Occupational Therapy Therapy Orders: Evaluate and Treat Oxygen: No Urinary Catheter: No Glucose Checks: before meals and at bedtime Lab Orders: Basic metabolic panel in 3-5 days Orders are good >30 days: Yes Signature: Sriram Parsons
[2024-02-26 19:00] VITALS: BP 117/68; PULSE 93; RESP 16; TEMP 37.1; O2SAT 93
--- NOTE | 2024-02-26 19:01 | PC.NURSE ---
Pt alert to self. Pt had no complaints of pain. Pt up in chair for part of shift. Pt is a 1-SBA with walker and gait belt. Pt napped on and off throughout the shift. Pt?s evening blood glucose 84 sliding scale and scheduled insulin held. Pt to discharge back to [facility] Tomorrow.?
[2024-02-26] MEDS: HYDROCORTISONE 10 MG TABLET PO (21:20)
[2024-02-26] MEDS: SODIUM CHLORIDE 0.9 % (FLUSH) 10 ML SYRINGE 5 ML IVF (21:25)
[2024-02-26 23:00] VITALS: BP 131/82; PULSE 83; RESP 16; TEMP 37.1; O2SAT 97
[2024-02-27 03:00] VITALS: BP 142/87; PULSE 94; RESP 18; TEMP 36.8; O2SAT 95
--- NOTE | 2024-02-27 05:24 | PC.NURSE ---
[id number] Pt slept well during the night, pleasant and cooperative. denies pain, ambulating to BR with walker/sba. watery output from ostomy, emptied 4 times during this shift. denies pain, N/V and tolerating po intake.
[2024-02-27 05:59] LABS: HCO3 VBG 22 mmol/L (21-28); PCO2 VBG 33 mmHG (40-50); PO2 VBG 61.3 mmHG (25-47); pH VBG 7.428 (7.32-7.43)
[2024-02-27 06:06] LABS: Hematocrit 33.9 % (33.0-51.0); Hemoglobin* 11.4 gm/dL (12.0-16.0); Mean Corpuscular HGB Conc 34 gm/dL (32-36); Mean Corpuscular Hemoglobin 31 pg (26-34); Mean Corpuscular Volume 91 fL (80-100); Platelet Count* 210 K/uL (140-440); Red Blood Count 3.72 m/uL (4.00-5.20); White Blood Count* 8.13 K/uL (4.50-11.00)
[2024-02-27 06:07] LABS: Slide Review Reflex No
[2024-02-27 06:20] LABS: Chloride* 110 mmol/L (96-114); Sodium* 136 mmol/L (135-149)
[2024-02-27 06:22] LABS: Creatinine* 0.8 mg/dL (0.5-1.5); Est. Creatinine Clearance* 29.01; Estimated Glomerular Filt Rate 72 ml/min
[2024-02-27 06:23] LABS: Anion Gap 3 mEq/L (7-15); Blood Urea Nitrogen* 19 mg/dL (7-30); Calcium* 8.7 mg/dL (8.4-10.6); Carbon Dioxide* 23 mmol/L (20-32); Glucose* 75 mg/dL (60-115)
[2024-02-27] MEDS: LEVOTHYROXINE 75 MCG TABLET PO (06:25)
[2024-02-27 07:30] VITALS: BP 127/75; PULSE 92; RESP 16; TEMP 36.6; O2SAT 96
[2024-02-27] MEDS: PSYLLIUM HUSK (WITH SUGAR) 12 GM PACKET PO (08:42)
[2024-02-27] MEDS: POTASSIUM BICARB 25 MEQ EFFERVESCENT TAB 50 MEQ PO (08:42)
[2024-02-27] MEDS: SERTRALINE 50 MG TABLET PO (08:43)
[2024-02-27] MEDS: FLUDROCORTISONE ACETATE 0.1 MG TABLET 0.2 MG PO (08:43)
[2024-02-27] MEDS: HYDROCORTISONE 10 MG TABLET 15 MG PO (08:43)
[2024-02-27] MEDS: SODIUM CHLORIDE 1 GM TABLET PO (08:43)
[2024-02-27] MEDS: SODIUM BICARBONATE 650 MG TABLET 1300 MG PO (08:43)
[2024-02-27] MEDS: DIPHENOXYLATE-ATROP 2.5-0.025 TABLET 2 TAB PO (08:43)
[2024-02-27] MEDS: SIMETHICONE 80 MG TAB.CHEW PO (08:43)
[2024-02-27] MEDS: SODIUM CHLORIDE 0.9 % (FLUSH) 10 ML SYRINGE 5 ML IVF (08:44)
--- NOTE | 2024-02-27 10:33 | PC.SOCIAL ---
Addendum entered by HARIS Granados 02/27/24 10:47: Discharge planning: ball worker gave pt The Important Message from Medicare form. Pt was sleepy when this worker was explaining, so this worker also explained the form to her son, Torey, over the phone. Social work to follow-up as needed. Original Note: Discharge planning: Pt will discharge today back to [facility] where they were holding her bed. ball worker informed pt's son, Torey. Pt will transport back to [facility] via non-emergent EMS, which was set-up by nursing. ball worker informed Matilda at [facility] of pt's return today and estimated arrival time. Nursing sent the discharge summary and notes to Matilda. Social work to follow-up as needed.
--- NOTE | 2024-02-27 11:02 | PC.NURSE ---
Patient discharged to [facility] via EMS. Patient stable at DC, vitals WNL. Discharge packet and belongings given to EMS personnel.
--- NOTE | 2024-02-27 11:25 | P.IMPN_ITS ---
Progress Note: A&P Assessment and plan (1) Primary adrenocortical insufficiency: Problem details: -administered stress dose steroids, hydrocortisone 100 mg IV q.6 hours x 6 doses. Tolerating usual oral regimen now, 15 mg of hydrocortisone every morning and 10 mg every evening. Status: Chronic (2) Addisonian crisis: Problem details: Consider outpatient stress dose steroids for acute illness, triple the steroid dose for 3 days with acute illness. Status: Acute (3) Vomiting: Problem details: - unclear if nausea and vomiting occurred 1st or subsequent to the addisonian crisis. Resolved. 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 - consider Lokelma (can take TID for 48 hours) if needed, though presently is a non issue * per POLST, indicates only basic interventions that would make her more comfortable and no aggressive life-sustaining interventions Status: Acute (5) Acute hyperglycemia: Status: Acute (6) Diabetic gastroparesis: Problem details: Tolerating p.o. fluid at discharge Status: Chronic (7) Diabetes: Problem details: Patient is quite brittle with her diabetes. She has type 1 diabetes so requires regular insulin dosing but also requires regular p.o. food and fluid. Due to alterations in mental status, variations in oral intake and ostomy output managing her nutrition, blood sugar, insulin has been difficult. Status: Acute (8) Dementia: Problem details: - continue with supportive efforts Status: Acute (9) Ileostomy in place: Problem details: History of high output from ileostomy. She still has moderate amount of liquid stool in her output. This appears to be back to baseline. Status: Acute (10) Frailty syndrome in geriatric patient: Problem details: - [facility] in [facility]. [facility]charge back [facility] today Status: Acute Time Spent With Patient Total time spent: Total time spent today is 40 minutes, 30 minutes in coordination of care and di scussing with other providers ongoing evaluation management of diabetes, adrenal insufficiency, ileostomy, dementia Subjective Date Seen: 02/27/24 Interval history: 88-year-old female with type 1 diabetes, adrenal insufficiency, high output ileostomy admitted to the hospital with altered mental status, vomiting, acute kidney injury, acute adrenal insufficiency, hyperglycemia, hyperkalemia. The precise cause of this series of events is uncertain. At the time of admission there was thought to be acute adrenal insufficiency possibly due to unable to take care her normal hydrocortisone. She was given stress dose steroids for this. With fluid resuscitation her hyperkalemia and acute kidney injury resolved. Vomiting resolved and she was able to take in normal oral diet. She had significant output from ostomy which is been an ongoing problem for her. Hyperglycemia resolved and this morning she actually was hypoglycemic. This was thought to be due to adjustments in her insulin from Lantus to Levemir. Overall she feels like she is back to normal. Exam Narrative: Exam Narrative: She is alert and appears in no distress. Cognition is slow today but she is pleasant and cooperative. She is able to eat a normal diet for breakfast. Respirations are clear to auscultation. Cardiovascular: S1, S2, regular rate and rhythm. Abdomen is soft without tenderness or mass. No edema. Const: Vital Signs, click to edit/add: Vital Signs - 24 hr 02/26/24 14:32 02/26/24 19:00 02/26/24 23:00 Temperature 97.7 F 98.7 F 98.7 F Pulse Rate [Pulse Oximeter] 97 93 83 Respiratory Rate 16 16 16 Blood Pressure [Ri ght Arm] 165/87 H 117/68 131/82 Pulse Oximetry 96 93 97 Oxygen Delivery Me thod Room Air Room Air Room Air Oxygen Flow Rate 0 0 02/27/24 03:00 02/27/24 07:30 02/27/24 07:30 Temperature 98.2 F 97.8 F Pulse Rate [Pulse Oximeter] 94 92 92 Respiratory Rate 18 16 16 Blood Pressure [Ri ght Arm] 142/87 H 127/75 Pulse Oximetry 95 96 Oxygen Delivery Me thod Room Air Room Air Oxygen Flow Rate Documenting provider has reviewed patient's vital signs: yes Labs Labs: Laboratory Results - last 24 hr 02/27/24 05:40 WBC 8.13 RBC 3.72 L Hgb 11.4 L Hct 33.9 MCV 91 MCH 31 MCHC 34 Plt Count 210 VBG pH 7.428 VBG pCO2 33 L VBG pO2 61.3 H VBG HCO3 22 Sodium 136 Potassium 3.0 L Chloride 110 Carbon Dioxide 23 Anion Gap 3 L BUN 19 Creatinine 0.8 Estimated Creat Clear 29.01 Estimated GFR 72 Glucose 75 Calcium 8.7
== END 2024-02-27 10:50 | DRG 424 ==
LOC: ED 04:16 → MEDSURG 04:42
PROVIDERS: Internal Medicine; Admitting Provider Internal Medicine; Emergency Provider Family Medicine; PCP Family Medicine; Visit Provider Internal Medicine
DX: E27.2 Addisonian crisis (principal); E27.1 Primary adrenocortical insufficiency; E10.65 Type 1 diabetes mellitus with hyperglycemia; E87.5 Hyperkalemia; E87.1 Hypo-osmolality and hyponatremia; Z93.2 Ileostomy status; Z79.899 Other long term (current) drug therapy; M81.0 Age-related osteoporosis without current pathological fracture; K58.9 Irritable bowel syndrome, unspecified; I25.10 Atherosclerotic heart disease of native coronary artery without angina pectoris; E03.9 Hypothyroidism, unspecified; K21.9 Gastro-esophageal reflux disease without esophagitis; F03.90 Unspecified dementia, unspecified severity, without behavioral disturbance, psychotic disturbance, mood disturbance, and anxiety; E10.22 Type 1 diabetes mellitus with diabetic chronic kidney disease; I12.9 Hypertensive chronic kidney disease with stage 1 through stage 4 chronic kidney disease, or unspecified chronic kidney disease; N18.31 Chronic kidney disease, stage 3a; Z79.4 Long term (current) use of insulin; R74.8 Abnormal levels of other serum enzymes; R11.2 Nausea with vomiting, unspecified; M89.9 Disorder of bone, unspecified; M99.88 Other biomechanical lesions of rib cage; E10.43 Type 1 diabetes mellitus with diabetic autonomic (poly)neuropathy; K31.84 Gastroparesis
CPT/HCPCS: 36415; 71045; 80048; 80053; 80069; 80076; 81001; 81003; 82565; 82803; 82962; 83605; 83735; 84100; 84132; 84295; 84484; 85025; 85027; 86140; 87086; 94761; 97116; 97161; 97166; 97530; 97535; 99284; 99285; A9270; G0378; J0613; J1720; J2405; J7030

== ENCOUNTER 2024-02-27 10:38 | Outpatient (CLI) | payer BC, SELFPAY ==
--- OUTSIDE RECORDS SUMMARY | 2024-03-06 15:21 | XMS_ITS ---
Author Name Unknown Organization [facility] Address [address] [place] [address] Care Team Providers Care Concrete Block Plant Supervisor Name Role Phone Unavailable Unavailable Unavailable Surgery Details Not on file Complications Check Surgery Details section. Procedure Estimated Blood Loss Check Surgery Details section. Procedure Findings Check Surgery Details section. Procedure Specimens Taken Check Surgery Details section.
--- OUTSIDE RECORDS SUMMARY | 2024-03-06 15:21 | XMS_ITS | Clinical Summary ---
Author Name Unknown Organization [facility] Address [address] [place] [address] Care Team Providers Care Conservation Educator Name Role Phone Unavailable Primary Care Provider Unavailabl e Source Comments Patient records contain information from all sites at [facility]. For routine questions regarding patient records, call [phone] during business hours, M-F 8:00 AM - 5:00 PM Central Time. Record requests for emergency care only can be directed to [phone] at any time.[facility] Allergies Active Allergy Reactions Criticality Noted [...] Order 1 Unspecified 11 2 Active multivitamin-iron -YS-Ay-hbtmjpnw (THERAPEUTIC-M) 400 mcg (folic acid) per tablet [...] Disease 05/02/2022 Atherosclerotic Heart Diseas e Of [place] Coronary Artery Without Angina Pectoris 05/02/2022 Hyperlipidemia [...] METABOLIC PANEL, S/P Routine 01/06/2024 7:36 AM CREDIT BALANCE SPECIALIST HEMOGLOBIN A1C, B STAT 03/03/2023 6:2 [...] M.D., M.B.A. LAB BLOOD ADD-ON [facility] [address] [place] [address], [place] D[place] [facility] [address] [place] [address] from Last 3 Months or Most Recently Relevant to Health Maintenance Advance Directives For more information, please contact: [phone] Documents on File Type Date Recorded Patient Sergeant At Arms Expl anation Advance Directives 03/10/2023 10:42 AM [...]
--- OUTSIDE RECORDS SUMMARY | 2024-03-06 15:21 | XMS_ITS | Referral Summary ---
Author Name Unknown Organization [facility] Address [address] [place] [address] Care Team Providers Care Tattoo Artist Name Role Phone Unavailable Primary Care Provider Unavailabl e Source Comments Patient records contain information from all sites at [facility]. For routine questions regarding patient records, call [phone] during business hours, M-F 8:00 AM - 5:00 PM Central Time. Record requests for emergency care only can be directed to [phone] at any time.[facility] Allergies Active Allergy Reactions Criticality Noted [...] Order 1 Unspecified 11 2 Active multivitamin-iron -WP-Jj-zpitqhpk (THERAPEUTIC-M) 400 mcg (folic acid) per tablet [...] Disease 05/02/2022 Atherosclerotic Heart Diseas e Of [place] Coronary Artery Without Angina Pectoris 05/02/2022 Hyperlipidemia [...] METABOLIC PANEL, S/P Routine 01/06/2024 7:36 AM CORE JAVA SOFTWARE ENGINEER HEMOGLOBIN A1C, B STAT 03/03/2023 6:2 8 [...] Siddhartha Mata M.D., M.B.A. LAB BLOOD ADD-ON [facility] [address] [place] [address], [place] D[place] [facility] [address] [place] [address] from Last 3 Months or Most Recently Relevant to Health Maintenance Advance Directives For more information, please contact: [phone] Documents on File Type Date Recorded Patient Core Blower Operator Expl anation Advance Directives 03/10/2023 10:42 AM [...]
--- OUTSIDE RECORDS SUMMARY | 2024-03-06 15:21 | XMS_ITS | Clinical Summary ---
Author Name Unknown Organization [facility] Address [place], [place] [address] Care Team Providers Care Front Office Assistant Name Role Phone Mercedes, Miladis Lucas RN Unavailable Perla Corrigan RN Unavailable [phone] Onur Schreiber MD Primary Care Provider Vivian Caruso MD Unavailable [phone] Allergies Active Allergy Reactions Criticality Noted Date [...] taking differently: 2 mg Oral QID, Informant: [facility]-Way [facility], Reported on 08/31/2023 Xinnopolsrbpo-Ewl-P A-Ginkgo (ONE DAILY WOMEN 50 PLUS) 400-120 mcg-mg tabIndications:Oste oporosis, unspecified osteoporosis type, unspecified pathological fracture presence Take by mouth. 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 Take 1 capsule by mouth daily at 8am 90 capsule 3 1 Active cholecalciferol, Vitamin D3, 2,000 unit tabletIndications:C ompression fracture of L1 lumbar vertebra, sequela TAKE TWO TABLETS DAILY AT 8PM 180 tablet 3 1 Active Additional Information Patient taking differently: 4,000 unitOralDAILY EVENING, Informant: [facility], Reported on 08/31/2023 levothyroxine (SYNTHROID) 75 mcg tabletIndications:A cquired hypothyroidism TAKE ONE TABLET DAILY BEFORE BREAKFAST AT 8AM 90 tablet 1 Active Additional Information Patient taking differently: 75 mcgOralBEFORE BREAKFAST, Informant: [facility]Way [facility], Reported on 08/31/2023 estradioL (ESTRACE) 0.01% (0.1 [...] 25 mg tabletIndications:C oronary 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 0 3 Active fludrocortisone (FLORINEF) 0.1 mg tabletIndications:A drenal insufficiency (René's disease) (HC) Take 3 Tablets (0.3 mg) [...] predniSONE 5 mg/5 mL solutionIndications :Adrenal insufficiency (Grayson's disease) (HC) Take 8 mL (8 mg) by mouth once daily with a meal. 240 mL 1 4 Active hydrocortisone (CORTEF) 5 mg tabletIndications:A drenal insufficiency (René's disease) (HC) Hydrocortisone 20 mg in the [...] up to donate her body to the [facility]. Call [phone] right after to donate. Essential hypertension 02/19/2017 Type 1 diabetes mellitus with complication 02/19 Overview: She developed Diabetes in 1997. She was diagnosed with Type [address] Rodriguez in 07/2013 per Becca Hypothyroidism 11/20/2016 Chronic pain syndrome 08/14/2016 Atherosclerosis of pamunkey co ronary artery of pamunkey heart without angina pectoris 04/24/2016 Overview: Dr. [...] & L3 lumbar vertebra 05/1406/19/2012 Adrenal insufficiency (René's disease) 2011 Renal tubular acidosis, type 4 [...] Encounters Date Type Department Care Team Description 03/01/2024 Lab Requisition [facility] [phone] Onur Schreiber MD 02/27/2024 Telephone [facility] [address] [place] [phone] Vivian Newman MD Medication Management (predniSONE 5 mg/5 mL solution) 02/20/2024 Lab Requisition [facility] [phone] Onur Schreiber MD 02/19/2024 Telephone [facility] [address] [place] [phone] Vivian Newman MD Medication Management (predniSONE 5 mg/5 mL solution ) 02/09/2024 Lab Requisition [facility] [phone] Onur Schreiber MD 02/09/2024 Telephone [facility] [address] [place] [phone] Vivian Newman MD Results 01/28/2024 Telephone [facility] [address] [place] [phone] Vivian Newman MD Diabetes (Blood Sugar Log, Lab Results, and MAR) 01/26/2024 Lab Requisition [facility] [phone] Clarissa Grimes, REAL TIME OPERATOR 01/19/2024 Telephone [facility], [facility] [address] [place] [phone] Vivian Newman MD Medication Management 01/19/2024 Telephone [facility], [facility] [address] [place] [phone] Vivian Newman MD Diabetes 01/15/2024 Orders Only [facility] Scanner 1 scan: (1-Ord) [facility], MULTIPLE LAB RESULTS, 01/15/2024 01/15/2024 Orders Only [facility] Scanner 1 scan: (1-Ord) [facility], MULTIPLE LABS, 01/15/2024 01/15/2024 Telephone [facility] [address] [place] [phone] Vivian Newman MD Results 01/14/2024 2:00 PM CDT Phone Office Visit [facility] [address] [place] [phone] Vivian Newman MD Phone Visit; Follow Up 01/14/2024 Lab Requisition [facility] [phone] Onur Schreiber MD 01/06/2024 Telephone [facility] [address] [place] [phone] Vivian Newman MD Results 01/05/2024 Lab Requisition [facility] [phone] Clarissa Grimes, REAL TIME OPERATOR 12/29/2023 Lab Requisition [facility] [phone] Clarissa Grimes, REAL TIME OPERATOR 12/18/2023 Lab Requisition [facility] [phone] Onur Schreiber MD 12/16/2023 Telephone [facility] [address] [place] [phone] Vivian Newman MD Consult 12/15/2023 2:30 PM [employer] Office Visit [facility] [address] [place] [phone] Vivian Newman MD Consult (Type 1 DM, Grayson Disease/Referred by Onur Schreiber MD) 12/15/2023 Orders Only [facility] Scanner 1 scan: (1-Ord) [facility], MULTIPLE LABS, 12/15/2023 12/15/2023 Travel 12/15/2023 Telephone [facility] [address] [place] [phone] Vivian Newman MD Appointment 12/12/2023 Orders Only [facility] Scanner 1 scan: (1-Ord) [facility], SODIUM, 12/12/2023 12/09/2023 Orders Only [facility] Scanner 1 scan: (1-Ord) [facility], RESULTS, 12/09/2023 12/09/2023 Orders Only [facility] Scanner 1 scan: (1-Ord) [facility], MULTIPLE LABS, 12/09/2023 from Last 3 Months [...] Disease Father heart attack d ied of [place] at 62 Other Maternal Grandmother at 99.5 [...] Comments Blood Pressure 115/60 12/15/2023 2:20 PM [employer] Pulse 84 12/15/2023 2:20 PM [employer] Temperature 36.9 ??C (98.5 ??F) 09/04/2023 1:15 AM CD T Respiratory Rate 14 09/04/2023 1:15 AM CDT Oxygen Saturation 95% 09/04/2023 1:15 AM CDT Inhaled Oxygen Concentration - - Weight 46.2 kg (101 lb 12.8 oz) 12/15/2023 2:20 PM [employer] Height 157.5 cm (5' 2) 08/31/2023 2:35 AM CDT Body Mass Index 18.62 08/31/2023 2:35 AM CDT Plan of Treatment Upcoming Encounters Date Type Department Care Team (Late st Contact Info) Description 04/01/2024 3:00 PM CDT Office Visit [facility] [address] [place] [phone] Vivian Newman MD [address] [place] [phone] Health Maintenance Due Date Last Done Comments [...] Additional history exists Tetanus booster 06/01/2031 06/01/2021, 07/2010, 07/03/2000 DEXA/DXA scan for age 65+ Addressed 03/12/2012 (Dec lined) Overridden with the intention of not completing the topic Pneumococcal series for age 65+ Completed 11/01/2015, 10/23/2007, 09/03/1999 Tdap Completed 06/01/2021 COVID-19 vaccine series Completed 08/26/20 23, 06/11/2023, 08/30/2022, Additional history exists Procedures Procedure Name Priority Date/Time Associated Diagnosis Comments BASIC METABOLIC PANEL Routine 03/02/2024 8:32 AM CDT Essential (primary) hypertension Primary adrenocortical insufficiency (HC) BASIC METABOLIC PANEL Routine 02/10/2024 7:44 AM CDT Hyperkalemia Hypo-osmolality and hyponatremia BASIC METABOLIC PANEL Routine 01/27/2024 7:50 AM CDT Hypo-osmolality and hyponatremia SCAN-LABORATORY REPORT 01/15/2024 12:00 AM CDT SCAN-LABORATORY REPORT 01/15/2024 12:00 AM CDT BASIC METABOLIC PANEL Routine 01/06/2024 7:36 AM [employer] Primary adrenocortical insufficiency (HC) BASIC METABOLIC PANEL Routine 12/30/2023 7:39 AM [employer] Hypo-osmolality and hyponatremia ELECTROLYTE PANEL Routine 12/23/2023 7:2 2 AM [employer] Addisonian crisis (HC) SCAN-LABORATORY REPORT 12/15/2023 12:00 AM [employer] SCAN-LABORATORY REPORT 12/12/2023 12:00 AM [employer] SCAN-LABORATORY REPORT 12/09/2023 12:00 AM [employer] SCAN-LABORATORY REPORT 12/09/2023 12:00 AM [employer] from Last 3 Months Results * (ABNORMAL) BASIC METABOLIC PANEL (03/02/2024 8:32 AM CDT) Only the most recent of5 resultswithin the time period is included. SODIUM 136 136 - 145 mmol/L 03/02/2024 9:57 AM [facility] POTASSIUM 3.9 3.5 - 5.1 mmol/L 03/02/2024 9:57 AM [facility] CHLORIDE 97(L) 98 - 107 mmol/L 03/02/2024 9:57 AM [facility] CO2,TOTAL 22 22 - 29 mmol/L 03/02/2024 9:57 AM [facility] ANION GAP 17 5 - 18 03/02/2024 9:57 AM [facility] GLUCOSE 314(H) 70 - 99 mg/dL 03/02/2024 9:57 AM [facility] CALCIUM 9.6 8.8 - 10.2 mg/dL 03/02/2024 9:57 AM [facility] BUN 18 8 - 23 mg/dL 03/02/2024 9:57 AM [facility] CREATININE 1.15(H) 0.50 - 0.90 mg/dL 03/02/2024 9:57 AM [facility] BUN/CREAT RATIO 16 10 - 20 9:57 AM [facility] eGFR 46(L) >90 mL/min/1.7 3m2 03/02/2024 9:57 AM T [facility] Comment:As of 2022, eG FR is calculated by the CKD-EPI creatinine equation without race adjustment. ??eGFR can be influenced by muscle mass, exercise, and diet. ??The reported eGFR is an estimation only and is only applicable if the renal function is stable. Blood BLOOD SPECIMEN / Unknown Butterfly / Unknown 03/02/2024 8:32 AM CDT 03/02/2024 9:27 AM CDT Onur Schreiber MD CHEMISTRY Performing Organization Address [facility] Co de Phone Number [facility] [address] [place] [phone] * SCAN-LABORATORY REPORT (01/15/2024 12:00 AM CDT) Only the most recent of6 resultswithin the time period is included. Scanner OTHER * (ABNORMAL) ELECTROLYTE PANEL (12/23/2023 7:22 AM WR[employer]PER [employer] SPR[employer]ER) SODIUM 130(L) 136 - 145 mmol/L 12/23/2023 8:37 AM [facility] POTASSIUM 5.2(H) 3.5 - 5.1 mmol/L 12/23/2023 8:37 AM [facility] CHLORIDE 96(L) 98 - 107 mmol/L 12/23/2023 8:37 AM [facility] CO2,TOTAL 23 22 - 29 mmol/L 12/23/2023 8:37 AM [facility] ANION GAP 11 5 - 18 12/23/2023 8:37 AM [facility] Blood BLOOD SPECIMEN / Unknown Butterfly / Unknown 12/23/2023 7:22 AM [employer] 12/23/2023 8:11 AM [employer] Onur Schreiber MD CHEMISTRY Performing Organization Address City/[facility]/ZIP Co de Phone Number [facility] [address] [place] [address] from Last 3 Months Advance Directives Documents on File Type Date Recorded Patient Earth Observations Chief Scientist Expl anation POLST 01/05/2018 11:42 AM TRISTEN DIAZD, 01/02/18 Healthcare Directive 06/02/2017 9:37 AM AN ATOMMoreno BEQUEST, [facility] 05/28/2017 POLST 07/12/2014 2:25 PM TRISTEN MONSALVE, 07/12/2014 POLST 08/19/2012 3:55 PM POLST, TOOTIE CYR, 08/11/12 Healthcare Directive 04/30/2012 3:38 PM HO ME DNR REQUEST FORM, [facility], 04/16/12 * DNR (Latest Code Status on [...] Code Status Discussion: Not Discussed Care Teams Front Office Assistant Relationship Specialty Start Date End Date Onur Schreiber MD [address] [place] [address] PCP - General Family Practice 04/17/22 Miladis Long, RN [address] [address] [employer] - [facility] Registered Nurse 08/27/21 Perla Corrigan, GRIS [facility] [address] [employer] - [facility] [place] Registered Nurse 08/27/21 Vivian Newman MD [address] [facility] [address] [place] [address] Endocrinology 03/03/24
== END 2024-02-27 10:39 | disposition home or self-care (01) ==
LOC: AMB 03-06 15:19
PROVIDERS: PCP Family Medicine; Visit Provider Emergency Medicine Emergency Medical Services
DX: R53.1 Weakness (principal); Z99.3 Dependence on wheelchair
CPT/HCPCS: A0425; A0428

== ENCOUNTER 2024-03-21 19:51 | Outpatient (CLI) | payer BC, SELFPAY ==
--- OUTSIDE RECORDS SUMMARY | 2024-03-25 10:43 | XMS_ITS ---
Author Organization [facility] Address [address] [place] [address] Care Team Providers Care Bander And Cellophaner Machine Name Role Phone Unavailable Unavailable Unavailable Surgery Details Not on file Complications Check Surgery Details section. Procedure Estimated Blood Loss Check Surgery Details section. Procedure Findings Check Surgery Details section. Procedure Specimens Taken Check Surgery Details section.
--- OUTSIDE RECORDS SUMMARY | 2024-03-25 10:43 | XMS_ITS | Clinical Summary ---
Author Organization [facility] Address [address] [place] [address] Care Team Providers Care Rn Medical Inpatient Services Name Role Phone Unavailable Primary Care Provider Unavailabl e Source Comments Patient records contain information from all sites at [facility]. For routine questions regarding patient records, call [phone] during business hours, M-F 8:00 AM - 5:00 PM Central Time. Record requests for emergency care only can be directed to [phone] at any time.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
--- OUTSIDE RECORDS SUMMARY | 2024-03-25 10:43 | XMS_ITS | Referral Summary ---
Author Organization [facility] Address [address] [place] [address] Care Team Providers Care Admittance Attendant Name Role Phone Unavailable Primary Care Provider Unavailabl e Source Comments Patient records contain information from all sites at [facility]. For routine questions regarding patient records, call [phone] during business hours, M-F 8:00 AM - 5:00 PM Central Time. 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
--- OUTSIDE RECORDS SUMMARY | 2024-03-25 10:44 | XMS_ITS | Clinical Summary ---
Author Organization [facility] Address [place], [place] [address] Care Team Providers Care Pot Fireman Name Role Phone Miladis Long Lucas RN Unavailable Perla Corrigan RN Unavailable [phone] Onur Schreiber MD Primary Care Provider Vivian Caruso MD Unavailable [phone] Allergies Active Allergy Reactions Criticality Noted Date [...] capsule by mouth once daily at 8am 024 Discontinued( Duplicate therapy (E-cancel not sent)) ASSURE MARTI 28 gauge miscIndications:Ty pe 1 diabetes mellitus with hypoglycemia and without coma (HC) USE THREE TIMES A DAY DIRECTED 300 Each 2 12/04/19 19 Suspended Additional Information loperamide (IMODIUM) 2 mg capsuleIndications :Irritable bowel syndrome, unspecified type TAKE ONE CAPSULE BY MOUTH TWICE DAILY IF NEEDED FOR DIARRHEA 180 capsule 06/23/20 19 024 Discontinued( Pharmacist change per medication history (E-cancel not sent)) Multivitamins-Min- FA-Ginkgo (ONE DAILY WOMEN 50 PLUS) 400-120 mcg-mg tabIndications:Ost eoporosis, unspecified osteoporosis type, unspecified pathological fracture presence Take by mouth. 90 tablet 2 12/03/19 20 024 Discontinued( Pharmacist change per medication history (E-cancel not sent)) nitroglycerin (NITROSTAT) 0.4 mg sublingual tabletIndications: CAD in [place] artery Place 1 tablet under the tongue every 5 minutes if needed for Chest Pain. 25 tablet 2 12/03/19 20 Suspended Additional Information glucose 4 gram chewable tabletIndications: Type 1 diabetes mellitus with hypoglycemia and without coma (HC) Take 1 tablet by mouth each time if needed for Blood Gluc < Specify. Wait until they call for this. 150 tablet 6 12/03/19 20 Suspended Additional Information blood sugar diagnostic (GLUCOCARD VITAL SENSOR) stripIndications:T ype 1 diabetes mellitus with hypoglycemia and without coma (HC) Dispense item covered by pt ins. E10.65 IDDM type I, uncontrolled - Test 3 times/day.TEST THREE TIMES A DAY 300 Strip 3 12/03/19 20 Suspended Additional Information miscellaneous medical supply miscIndications:Co mpression fracture of L2 vertebra with delayed healing As directed. New mattress for her hospital bed. Current mattress is from 2013 and is worn out. 1 Units 05/03/20 20 024 Discontinued( Other - add note to specify (E-cancel not sent)) ULTICARE PEN NEEDLE 29 gauge x 1/2Indications:Ty pe 1 diabetes mellitus with hypoglycemia and without coma (HC) USE 3-5 TIMES DAILY PER MD INSTRUCTIONS 500 Each 3 07/24/20 20 Suspended Additional Information aspirin (ECOTRIN) 81 mg enteric coated tabletIndications: Coronary artery disease involving [place] coronary artery of [place] heart with unstable angina pectoris (HC) TAKE ONE TABLET DAILY WITH A MEAL AT 8PM 90 tablet 2 10/02/20 20 Suspended Additional Information Patient taking differently: 81 mgOralDAILY EVENING, Informant: [facility], Reported on 08/31/2023 coenzyme q10 100 mg capIndications:Ath erosclerosis of [place] coronary artery of [place] heart without angina pectoris Take 1 capsule by mouth once daily. Take 1 capsule by mouth daily at 8am 90 capsule 3 11/10/19 21 024 Discontinued( Reorder (E-cancel not sent)) cholecalciferol, Vitamin D3, 2,000 unit tabletIndications: Compression fracture of L1 lumbar vertebra, sequela TAKE TWO TABLETS DAILY AT 8PM 180 tablet 3 11/30/19 Suspended Additional Information Patient taking differently: 4,000 unitOralDAILY EVENING, Informant: [facility], Reported on 08/31/2023 levothyroxine (SYNTHROID) 75 mcg tabletIndications: Acquired hypothyroidism TAKE ONE TABLET DAILY BEFORE BREAKFAST AT 8AM 90 tablet 11/30/19 21 Suspended Additional Information Patient taking differently: 75 mcgOralBEFORE BREAKFAST, Informant: [facility], Reported on 08/31/2023 estradioL (ESTRACE) 0.01% (0.1 mg/g) vaginal creamIndications:V aginal atrophy 1 gm intravaginally every Friday and 09/03/20 Suspended Additional Information olopatadine (PATADAY) 0.2 % ophthalmic solutionIndication s:Environmental allergies Place 1 drop into both eyes once daily at 8am 0 09/03/20 23 Suspended Additional Information ondansetron (ZOFRAN) 4 mg tabletIndications: Nausea Take 1 Tablet (4 mg) by mouth every 4 hours if needed for Nausea/Vomiting. 09/03/20 23 024 Discontinued( Pharmacist change per medication history (E-cancel not sent)) psyllium 0.52 gram capsuleIndications :High output ileostomy (HC) Take 4 Capsules by mouth three times daily. 0 09/03/20 23 024 Discontinued( Pharmacist change per medication history (E-cancel not sent)) simethicone chewable (MYLANTA GAS RELIEF; GAS X) 80 mg chewable tabletIndications: High output ileostomy (HC) Max dose: 500 mg per 24 hrs 0 09/03/20 23 024 Discontinued( Pharmacist change per medication history (E-cancel not sent)) sodium chloride 1,000 mg soluble tabletIndications: Hyponatremia Take 1,000 mg by mouth three times daily 09/03/20 Suspended Additional Information vitamin B complex (B Complex 1) tabletIndications: Preventive measure Take 1 Tablet by mouth once daily. 0 09/03/20 Suspended Additional Information sodium bicarbonate 650 mg tabletIndications: Renal tubular acidosis, type 4 Take 1 Tablet (650 mg) by mouth three times daily. 0 09/03/20 23 024 Discontinued( Pharmacist change per medication history (E-cancel not sent)) metoprolol tartrate (LOPRESSOR) 25 mg tabletIndications: Coronary artery disease involving [place] coronary artery of [place] heart with unstable angina pectoris (HC) Take 0.5 Tablets (12.5 mg) by mouth two times daily. 0 09/03/20 23 024 Discontinued( Pharmacist change per medication history (E-cancel not sent)) fludrocortisone (FLORINEF) 0.1 mg tabletIndications: Adrenal insufficiency ([facility] disease) (HC) Take 3 Tablets (0.3 mg) by mouth once daily. 90 Tablet 2 12/15/19 Suspended Additional Information Glucagon Emergency Kit, human, 1 mg injection Inject 1 mg intramuscular each time if needed. 09/05/20 Suspended loperamide (IMODIUM) 2 mg capsule Take 4 mg by mouth each time if needed. 024 Discontinued( Pharmacist change per medication history (E-cancel not sent)) acetaminophen (TYLENOL) 325 mg tablet Take 1,000 mg by mouth each time if needed. 024 Discontinued( Pharmacist change per medication history (E-cancel not sent)) diphenoxylate-atro pine, 2.5-0.025 mg, (LOMOTIL) 2.5-0.025 mg tablet Take 2 Tablets by mouth four times daily. 11/27/19 24 Suspended sertraline (ZOLOFT) 50 mg tabletIndications: Anxiety state Take 1 Tablet (50 mg) by mouth once daily. 12/15/19 24 Suspended insulin glargine, U-100, 100 unit/mL (3 mL) penIndications:Typ e 1 diabetes mellitus with complication (HC) 4 units QAM and 5 units qPM 02/09/20 24 024 Discontinued( Pharmacist change per medication history (E-cancel not sent)) insulin aspart, U-100, (NovoLOG Flexpen U-100 Insulin) 100 unit/mL (3 mL) penIndications:Typ e 1 diabetes mellitus with complication (HC) 11 units with breakfast, 7 units with lunch and 7 units with evening meal. Plus sliding scale based upon pre-meal blood sugar. Blood sugar 201 - 300 give 2 units . Blood sugar 301 - 400 give 3 units. Blood sugar 401 - 500 give 4 units. Blood sugar 501 or more give 5 units 02/19/20 24 024 Discontinued( Pharmacist change per medication history (E-cancel not sent)) predniSONE 5 mg/5 mL solutionIndication s:Adrenal insufficiency (René's disease) (HC) Take 8 mL (8 mg) by mouth once daily with a meal. 240 mL 1 02/19/20 24 024 Discontinued( Pharmacist change per medication history (E-cancel not sent)) acetaminophen (Tylenol Extra Strength) 500 mg tablet Take 1,000 mg by mouth 3 times daily if needed. Max acetaminophen dose: 4000mg in 24 hrs. Suspended ondansetron (ZOFRAN) 4 mg tablet Take 4 mg by mouth every 6 hours if needed for Nausea/Vomiting. Suspended simethicone chewable (MYLANTA GAS RELIEF; GAS X) 80 mg chewable tablet Chew 80 mg by mouth three times daily. 024 Discontinued( Pharmacist change per medication history (E-cancel not sent)) SACCHAROMYCES BOULARDII ORAL Take by mouth once daily. Suspended hydrocortisone (CORTEF) 20 mg tablet Take 20 mg by mouth two times daily. Suspended psyllium husk, with sugar, (Metamucil, with sugar,) 3.4 gram packet Mix 1 Packet in liquid then take by mouth three times daily. Suspended morphine CONTROLLED-RELEASE (MS CONTIN) 15 mg tablet Take 15 mg by mouth three times daily. Suspended coenzyme q10 (Co Q-10) 100 mg cap Take 100 mg by mouth once daily in the evening. Suspended insulin aspart, U-100, (NOVOLOG FLEXPEN) 100 unit/mL (3 mL) pen 10 units with breakfast, 7 units with lunch, and 8 units with evening meal Suspended insulin aspart, U-100, (NOVOLOG FLEXPEN) 100 unit/mL (3 mL) pen Sliding Scale based upon pre-meal blood glucose. Blood glucose 201 - 300 give 2 units, 301 - 400 give 3 units, 401 - 500 give 4 units, 501 or more give 5 units Suspended insulin glargine, U-100, 100 unit/mL (3 mL) pen Inject 6 units subcutaneous before bedtime. Suspended loperamide (IMODIUM) 2 mg capsule Take 4 mg by mouth 2 times daily if needed for Diarrhea. Suspended Multivitamins-Min- FA-Ginkgo (One Daily Women 50 Plus) 400-120 mcg-mg tab Take 1 Tablet by mouth once daily. Suspended sodium bicarbonate 650 mg tablet Take 1,300 mg by mouth three times daily. 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 Call [phone] right after to donate. Essential hypertension 02/19/2017 Type 1 diabetes mellitus with complication 02/19 Overview: She developed Diabetes in 1997. She was diagnosed with Type [address] Rodriguez in 07/2013 per Becca Hypothyroidism 11/20/2016 Chronic pain syndrome 08/14/2016 Atherosclerosis of [place] co ronary artery of [place] heart without angina pectoris 04/24/2016 Overview: Dr. 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 Collapse of external ear canal 02/15/2009 Constipation 02/05/2008 Osteoporosis 02/16/2007 Overview: Patient has been [...] Encounters Date Type Department Care Team Description 03/22/2024 9:44 PM CDT - Present Hospital Encounter [facility] [address] [place] [address] [facility], MD Maryanne Reese, MD Linnea Greene Ashfaq, MD 03/16/2024 Telephone [facility] [address] [place] [address] Vivain Newman MD Medication Management 03/15/2024 Lab Requisition [facility] [phone] Linda Cuevas NP 03/08/2024 Telephone [facility] [address] [place] [address] Vivian Newman MD Medication Management (Questions) 03/01/2024 Lab Requisition [facility] [phone] Onur Schreiber MD 02/27/2024 Telephone [facility] [address] [place] [address] Vivian Newman MD Medication Management (predniSONE 5 mg/5 mL solution) 02/20/2024 Lab Requisition [facility] [phone] Onur Schreiber MD 02/19/2024 Telephone [facility] [address] [place] [address] Vivian Newman MD Medication Management (predniSONE 5 mg/5 mL solution ) 02/09/2024 Lab Requisition [facility] [phone] Onur Schreiber MD 02/09/2024 Telephone [facility] [address] [place] [address] Vivian Newman MD Results 01/28/2024 Telephone [facility] [address] [place] [address] Vivian Newman MD Diabetes (Blood Sugar Log, Lab Results, and MAR) 01/26/2024 Lab Requisition [facility] [phone] Clarissa Grimes, SEE WHEELER 01/19/2024 Telephone [facility] [address] [place] [phone] Vivian Newman MD Medication Management 01/19/2024 Telephone [facility] [address] [place] [phone] Vivian Newman MD Diabetes 01/15/2024 Orders Only [facility] Scanner 1 scan: (1-Ord) [facility], MULTIPLE LAB RESULTS, 01/15/2024 01/15/2024 Orders Only [facility] Scanner 1 scan: (1-Ord) [facility], MULTIPLE LABS, 01/15/2024 01/15/2024 Telephone [facility] [address] [place] [phone] Vivian Newman MD Results 01/14/2024 2:00 PM CDT Phone Office Visit [facility] [address] [place] [phone] Vivian Newman MD Phone Visit; Follow Up 01/14/2024 Lab Requisition [facility] [phone] Onur Schreiber MD 01/06/2024 Telephone [facility] [address] [place] [phone] Vivian Newman MD Results 01/05/2024 Lab Requisition [facility] [phone] Clarissa Grimes, HIEN 12/29/2023 Lab Requisition [facility] [phone] Clarissa Grimes, SEE WHEELER from Last 3 Months Immunizations Name Administration Dates Next Due COVID-19 vaccine (Moderna 100mcg/0.5mL) OZZY VELÁSQUEZ 12/14/2020,11/16/2020 Influenza, High-dose Inactivated 018,08/25/2017,08/23/2016,2014,09/01/2014 Influenza, High-dose [...] Disease Father heart attack d ied of ID at 62 Other Maternal Grandmother at 99.5 [...] Sign Reading Time Taken Comments Blood Pressure 132/93 03/25/2024 8:24 AM CDT Pulse 72 03/25/2024 8:24 AM CDT Temperature 36.5 ??C (97.7 ??F) 03/25/2024 1 2:00 AM CDT Respiratory Rate 18 03/25/2024 8:24 AM CDT Oxygen Saturation 94% 03/25/2024 8:24 AM CDT Inhaled Oxygen Concentration - - Weight 46.2 kg (101 lb 12.8 oz) 12/15/2023 2:20 PM HANDS HANGER Height 157.5 cm (5' 2) 08/31/2023 2:35 AM CDT Body Mass Index 18.62 08/31/2023 2:35 AM CDT Plan of Treatment Upcoming Encounters Date Type Department Care Team (Late st Contact Info) Description 04/01/2024 3:00 PM CDT Office Visit [facility] [address] [place] [phone] Vivian Newman MD [address] [place] [address] [...] 08/26/20, 06/11/2023, 08/30/2022, Additional history exists Procedures The patient is currently admitted. The information in this section might not be complete until the patient is discharged. Procedure Name Priority Date/Time Associated Diagnosis Comments GLUCOSE METER Timed 03/25/2024 6:46 AM CDT GLUCOSE METER Timed 03/24/2024 10:13 PM CDT GLUCOSE METER Timed 03/24/2024 4:54 PM CDT SCAN CORRESP-LABORATORY RESULTS 03/24/2024 12:28 PM CDT SCAN CORRESP-IMAGING 03/24/2024 12:28 PM CDT SCAN CORRESP-IMAGING 03/24/2024 12:28 PM CDT SCAN CORRESP-EKG RESULTS 03/24/2024 12:21 PM CDT SCAN CORRESP-EKG RESULTS 03/24/2024 12:21 PM CDT GLUCOSE METER Timed 03/24/2024 12:04 PM CDT BASIC METABOLIC PANEL Early AM 03/24/2024 7:56 AM CDT GLUCOSE METER Timed 03/24/2024 7:42 AM CDT GLUCOSE METER Timed 03/23/2024 10:01 PM CDT GLUCOSE METER Timed 03/23/2024 4:29 PM CDT GLUCOSE METER Timed 03/23/2024 12:20 PM CDT CONTINUOUS VIDEO EEG MONITORING Routine 03/23/2024 9:43 AM CDT GLUCOSE METER Timed 03/23/2024 8:10 AM CDT SCAN-CARDIAC STRIP 03/23/2024 12 :52 AM CDT PHOSPHORUS MAREN 03/22/2024 11:09 PM CDT AMMONIA MAREN 03/22/2024 11:09 PM CDT LACTATE VENOUS MAREN 03/22/2024 11:09 PM CDT BASIC METABOLIC PANEL MAREN 03/22/2024 11:09 PM CDT BASIC METABOLIC PANEL Routine 03/16/2024 7:37 AM [...] BASIC METABOLIC PANEL Routine 01/06/2024 7:36 AM HANDS HANGER Primary adrenocortical insufficiency (HC) BASIC METABOLIC PANEL Routine 12/30/2023 7:39 AM HANDS HANGER Hypo-osmolality and hyponatremia from 3 Months Results * GLUCOSE METER (03/25/2024 6:46 AM CDT) Only the most recent of9 resultswithin the time period is included. GLUCOSE METER 92 65 - 100 mg/dL 03/25/2024 6:47 AM CDT [facility] Blood BLOOD SPECIMEN / Unknown 03/25/2024 6:46 AM CDT 03/25/2024 6:47 AM CDT Andrae Yarbrough MD CHEMISTRY [facility] [address] [place] [address], * SCAN CORRESP-LABORATORY RESULTS (03/24/2024 12:28 PM CDT) Narrative 03/24/2024 12:28 PM CDT Ordered by an unspecified provider. Other Clinical Staff OTHER * SCAN CORRESP-IMAGING (03/24/2024 12:28 PM CDT) Only the most recent of2 resultswithin the time period is included. Anatomical Region Laterality Modality Other Narrative 03/24/2024 12:28 PM CDT Ordered by an unspecified provider. Other Clinical Staff OTHER * SCAN CORRESP-EKG RESULTS (03/24/2024 12:21 PM CDT) Only the most recent of2 resultswithin the time period is included. Narrative 03/24/2024 12:21 PM CDT Ordered by an unspecified provider. Other Clinical Staff OTHER * (ABNORMAL) Basic metabolic panel AM (03/24/2024 7:56 AM CDT) Only the most recent of8 resultswithin the time period is included. SODIUM 138 136 - 145 mmol/L 03/24/2024 8:47 AM CDT [facility] POTASSIUM 3.2(L) 3.5 - 5.1 mmol/L 03/24/2024 8:47 AM CDT [facility] CHLORIDE 107 98 - 107 mmol/L 03/24/2024 8:47 AM CDT [facility] CO2,TOTAL 22 22 - 29 mmol/L 03/24/2024 8:47 AM CDT [facility] ANION GAP 9 5 - 18 03/24/2024 8:47 AM T [facility] GLUCOSE 96 70 - 99 mg/dL 03/24/2024 8:47 AM T [facility] CALCIUM 8.3(L) 8.8 - 10.2 mg/dL 03/24/2024 8:47 AM T [facility] BUN 15 8 - 23 mg/dL 03/24/2024 8:47 AM T [facility] CREATININE 0.96(H) 0.50 - 0.90 mg/dL 03/24/2024 8:47 AM T [facility] BUN/CREAT RATIO 16 10 - 20 8:47 AM T [facility] eGFR 58(L) >90 mL/min/1.7 3m2 03/24/2024 8:47 AM T [facility] Comment:As of 2022, eG FR is calculated by the CKD-EPI creatinine equation without race adjustment. ??eGFR can be influenced by muscle mass, exercise, and diet. ??The reported eGFR is an estimation only and is only applicable if the renal function is stable. Blood BLOOD SPECIMEN / Unknown Non-Lab Venipuncture / Unknown 03/24/2024 7:56 AM CDT 03/24/2024 8:12 AM CDT Óscar Madden MD CHEMISTRY [facility] [address] [place] [address], * Continuos video EEG (veeg) monitoring (03/23/2024 9:43 AM CDT) Narrative Lanny Abraham MBBS - 03/23/2024 9:43 AM CDT Lanny Abraham MBBS ? 03/23/2024 ??9:48 AM [facility], [facility] bridge saw operator monitoring/ video EEG report Name: Shira Stauffer Test Number: ??See below Test date: 03/23/24 ?? : 1935 Referring Service: ??@SERVDEPT@ Age: 88 y.o. Referring Physician: Lucille Cecille [facility] Procedure: videoEEG/ LTM Interpreting Physician: Lanny Abraham MD Introduction: ??The patient is a 88 y.o. old female with a history of dementia, altered mental state. This video EEGmonitoring study was done in order to monitor for seizures. ??The patient is currently on following neuroactive medications. Levetiracetam Procedural details: This is a 21-channel digital EEG performed using the international 10-20 system of electrode placement. Multiple reformatable montages were used in review. Video recording was available for review. Physician access to data was throughout the recording period. A daily report, as below, was generated and updated and signed at least once every 24 hour period from the start of the EEG monitoring. Day 1 report - (Study date: 03/23/2024,Study duration:6h 30m, Study# [id number]) Indication: Unchanged, as detailed above. Procedural details: Unchanged, as detailed above. Interictal EEG Samples: During the restful/nonstimulated state, the background demonstrated generalized polymorphic theta range frequencies of 5-7 Hz. Superimposed symmetric beta range frequencies. At times, bilaterally symmetrical sleep spindles architecture could also be identified. During stimulated/active state, the background demonstrated generalized rhythmic 1-1.5 Hz delta activity, at times triphasic in morphology. Underlying and intermixed polymorphic theta range frequencies continued to be seen. Ictal Recordings: During this period the patient had none of their typical events. Summary: During this day of recording no events were recorded. ?? Monitoring was discontinued after patient pulled off the recording electrodes. Clinical Correlation: This day EEG recording is an abnormal awake and asleep EEG. ??The background is consistent with mild-moderate degree of encephalopathy. No seizures, epileptiform discharges, or typical events were recorded. Monitoring was discontinued after the patient pulled off the recording electrodes. Lanny Abraham MD, FAAN, FAES Continuous video EEG study completed 03/23/2024, with a total recording time of (6Hours: 30 Minutes) Rajan Tracey DO NEUROLOGY ORD * SCAN-CARDIAC STRIP (03/23/2024 12:52 AM CDT) Scanner OTHER * LACTATE VENOUS (03/22/2024 11:09 PM CDT) LACTATE,VENOUS 1.3 0.5 - 2.0 mmol/L 03/23/2024 12:27 AM CDT [facility] Blood BLOOD SPECIMEN / Unknown Venipuncture / Unknown 03/22/2024 11:09 PM CDT 03/22/2024 11:35 PM CDT Rajan Tracey DO CHEMISTRY Performing Organization Address City/[facility] Co de Phone Number [facility] [address] * Phosphorus (03/22/2024 11:09 PM CDT) PHOSPHORUS 3.1 2.5 - 4.5 mg/dL 03/23/2024 3:01 AM CDT [facility] Blood BLOOD SPECIMEN / Unknown Venipuncture / Unknown 03/22/2024 11:09 PM CDT 03/22/2024 11:34 PM CDT Rajan Tracey DO CHEMISTRY Performing Organization Address City/[facility]/ZIP Co de Phone Number [facility] [address] [place] [address], * Ammonia TODAY (03/22/2024 11:09 PM CDT) AMMONIA 25 16 - 60 umol/L 03/23/2024 12:27 AM CDT [facility] Blood BLOOD SPECIMEN / Unknown Venipuncture / Unknown 03/22/2024 11:09 PM CDT 03/22/2024 11:28 PM CDT Narrative [facility] - 03/23/2024 12:27 AM CDT 1. ??Sulfasalazine and its metabolite Sulfapyridine at therapeutic concentrations may lead to falsely low results. 2. ??Temozolomide and its metabolite MTIC may lead to falsely elevated results, and its metabolite AIC may lead to falsely low results. Rajan Tracey DO CHEMISTRY [facility] [address] [place] [address], * SCAN-LABORATORY REPORT (01/15/2024 12:00 AM CDT) Only the most recent of2 resultswithin the time period is included. Scanner OTHER from Last 3 Months Advance Directives Documents on File Type Date Recorded Patient Wire Fence Erector Expl anation POLST 01/05/2018 11:42 AM TRISTEN YODER, 01/02/18 Healthcare Directive 06/02/2017 9:37 AM AN Pamela CHENG OF [place] 05/28/2017 POLST 07/12/2014 2:25 PM TRISTEN MONSALVE, 07/12/2014 POLST 08/19/2012 3:55 PM TOOTIE HEADLEY, 08/11/12 Healthcare Directive 04/30/2012 3:38 PM HO ME DNR REQUEST FORM, [facility], 04/16/12 * DNR (Latest Code Status on File) Date Activated Date Inactivated Comments 03/23/2024 11:01 AM Question Answer Comments Code Status Discussion: Reviewed Preferences * DNR Date Activated Date Inactivated Comments 03/22/2024 10:36 PM 03/23/2024 11:01 AM Question Answer Comments Code Status Discussion: Unable to Assess Preferences, Provider to review later * DNR Date Activated Date Inactivated Comments 08/31/2023 2:39 [...] Code Status Discussion: Not Discussed Care Teams Pot Fireman Relationship Specialty Start Date End Date Onur Schreiber MD [address] [place] [address] PCP - General Family Practice 04/17/22 Miladis Long RN [address] [address] [employer] [place] [facility] [place] Registered Nurse 08/27/21 Perla Corrigan RN [facility] [address] [address] [employer] [place] [facility] [place] Registered Nurse 08/27/21 Vivian Newman MD 7600 [facility] [address] [place] [address] Endocrinology 03/03/24
== END 2024-03-21 19:52 | disposition home or self-care (01) ==
LOC: AMB 03-25 10:41
PROVIDERS: PCP Family Medicine; Visit Provider Family Medicine
DX: G40.909 Epilepsy, unspecified, not intractable, without status epilepticus (principal)
CPT/HCPCS: A0425; A0427

== ENCOUNTER 2024-03-21 20:29 | Observation (INO) | payer BC, SELFPAY ==
[2024-03-21] VITALS (16 sets, daily range): BP systolic 91–154; BP diastolic 57–87; PULSE 88–112; RESP 18; TEMP 37.1; O2SAT 89–97
--- NOTE | 2024-03-21 20:48 | ED.GENADULT ---
HPI - General Adult General Chief complaint: Seizure Stated complaint: seizure Time Seen by Provider: 03/21/24 20:40 History of Present Illness HPI narrative: Pt had witnessed 1 minute long tonic-colonic seizure. Took approximatley 10-15 minutes for pt to become alert again. Normally A/O x 3. Hx of dementia. Comes from [facility]. No recent illnesses. No known injuries from seizure. Not on thinners . Pt alert in triage, not verbal currently. 88-year-old woman presenting to the emergency department via EMS with concern of seizure. Staff at residence apparently witnessed a minute long described tonic-clonic seizure. Known seizure disorder. Uncertain last seizure however. 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 On arrival here as I am arriving to assess begins having another seizure. Stiffens up looking up to the left. Does bite her tongue. Did not need oxygen support. Resolved in about a minute and was given a mg of Ativan IV. Prior to this had been in usual state of health. Underlying history of dementia. No recent fevers reported. History of diabetes. Blood sugar per EMS I understand was around 160. No new medication changes reported. Related Data Home Medications ?Medication ?Instructions ?Recorded ?Confirmed cholecalciferol (vitamin D3) 50 4,000 unit PO HS 05/02/22 03/22/24 mcg (2,000 unit) tablet coenzyme Q10 100 mg capsule 100 mg PO HS 05/02/22 03/22/24 estradiol 0.01% (0.1 mg/gram) 1 appful vaginal .MOTH@HS 05/02/22 03/22/24 vaginal cream hydrocortisone 5 mg tablet 20 mg PO BID 05/02/22 03/22/24 lactobacillus combination no.4 3 3,000 mmu cells PO DAILY 05/02/22 03/22/24 billion cell capsule (Probiotic) levothyroxine 75 mcg tablet 75 mcg PO DAILY 05/02/22 03/22/24 multivit-iron 18 mg-folic acid 400 1 tab PO DAILY 05/02/22 03/22/24 mcg-calcium 500 mg-minerals tablet (Women's One Daily) olopatadine 0.2 % eye drops 1 drp ophthalmic (eye) DAILY 05/02/22 03/22/24 vitamin B complex (Vitamins B 1 cap PO DAILY 05/02/22 03/22/24 Complex capsule) acetaminophen 500 mg capsule 1,000 mg PO TID PRN 05/28/22 03/22/24 ondansetron HCl 4 mg tablet 4 mg PO Q6H PRN 05/28/22 03/22/24 simethicone 80 mg chewable tablet 80 mg PO TID 05/28/22 03/22/24 aspirin 81 mg chewable tablet 81 mg PO HS 03/03/23 03/22/24 glucose 4 gram chewable tablet 4 g PO Q15M PRN 03/03/23 03/22/24 (Dex4 Glucose) sertraline 50 mg tablet 50 mg PO DAILY 03/03/23 03/22/24 loperamide 2 mg capsule 4 mg PO BID PRN 03/27/23 03/22/24 glucagon 1 mg solution for 1 mg IM ONCE PRN 09/19/23 03/22/24 injection (Glucagon Emergency Kit) insulin aspart U-100 100 unit/mL 5 sliding scale dose subcut 09/19/23 03/22/24 (3 mL) subcutaneous pen USEASDIRECTD insulin aspart U-100 100 unit/mL 7 - 10 unit subcut TIDWM 09/19/23 03/22/24 (3 mL) subcutaneous pen nitroglycerin 0.4 mg sublingual 0.4 mg sublingual Q5M PRN 09/19/23 03/22/24 tablet morphine 15 mg tablet,extended 15 mg PO TID 11/30/23 03/22/24 release fludrocortisone 0.1 mg tablet 0.3 mg PO DAILY 03/22/24 03/22/24 Previous Rx's ?Medication ?Instructions ?Recorded sodium chloride 1,000 mg soluble 1,000 mg PO TIDWM 30 days #90 tabs 04/02/23 tablet diphenoxylate-atropine 2.5 2 tab PO QID #240 tabs 09/30/23 mg-0.025 mg tablet psyllium husk (with sugar) 3.4 1 tbsp PO TIDWM #1,045 grams 09/30/23 gram oral powder packet (Metamucil (with sugar)) sodium bicarbonate 650 mg tablet 1,300 mg (2 x 650 mg) PO TIDWM 09/30/23 #180 tabs insulin glargine 100 unit/mL (3 6 unit (0.06 mL) subcut DAILY #15 02/27/24 mL) subcutaneous pen (Lantus mL Solostar U-100 Insulin) Allergies Allergy/AdvReac Type Severity Reaction Status Date / Time adhesive tape Allergy Mild Rash Verified 03/21/24 20:43 diclofenac Allergy Unknown Verified 03/21/24 20:43 aspartame Allergy Verified 03/21/24 20:43 beclomethasone Allergy Verified 03/21/24 20:43 bisacodyl Allergy Verified 03/21/24 20:43 dexamethasone Allergy Verified 03/21/24 20:43 doxycycline Allergy Verified 03/21/24 20:43 erythromycin base Allergy Verified 03/21/24 20:43 gabapentin Allergy Verified 03/21/24 20:43 hydrochlorothiazide Allergy Verified 03/21/24 20:43 lactase [From Dairy Aid] Allergy Verified 03/21/24 20:43 meclizine Allergy Verified 03/21/24 20:43 metformin Allergy Verified 03/21/24 20:43 metoclopramide Allergy Verified 03/21/24 20:43 nabumetone [From Relafen] Allergy Verified 03/21/24 20:43 propranolol Allergy Verified 03/21/24 20:43 raloxifene Allergy Verified 03/21/24 20:43 ramipril Allergy Verified 03/21/24 20:43 tobramycin Allergy Verified 03/21/24 20:43 venlafaxine Allergy Verified 03/21/24 20:43 Review of Systems Status of ROS: Reports: unobtainable due to medical condition and unobtainable due to mental status [facility] Medical History POLST (Physician Orders for Life-Sustaining Treatment) ?Z78.9 - Other specified health status (ICD-10) Seizure ?R56.9 - Unspecified convulsions (ICD-10) Elevated liver transaminase level ?R74.01 - Elevation of levels of liver transaminase levels (ICD-10) Addisonian crisis ?E27.2 - Addisonian crisis (ICD-10) Acute hyperglycemia ?R73.9 - Hyperglycemia, unspecified (ICD-10) Ileostomy in place ?Z93.2 - Ileostomy status (ICD-10) Frailty syndrome in geriatric patient ?R54 - Age-related physical debility (ICD-10) Chronic hyponatremia ?E87.1 - Hypo-osmolality and hyponatremia (ICD-10) Hyperkalemia (12/22/11) ?E87.5 - Hyperkalemia (ICD-10) Acute cystitis without hematuria ?N30.00 - Acute cystitis without hematuria (ICD-10) Physical deconditioning ?R53.81 - Other malaise (ICD-10) Low body weight due to inadequate caloric intake ?R63.6 - Underweight (ICD-10) Adult failure to thrive ?R62.7 - Adult failure to thrive (ICD-10) Weakness ?R53.1 - Weakness (ICD-10) Chronic pain ?G89.29 - Other chronic pain (ICD-10) Altered mental status ?R41.82 - Altered mental status, unspecified (ICD-10) Atrial fibrillation ?I48.91 - Unspecified atrial fibrillation (ICD-10) Diabetes mellitus type 1 (12/22/11) ?E10.9 - Type 1 diabetes mellitus without complications (ICD-10) Renal tubular acidosis, type 4 ?N25.89 - Other disorders resulting from impaired renal tubular function (ICD-10) Polypharmacy ?Z79.899 - Other long term acute care registered nurse (current) drug therapy (ICD-10) Osteoporosis ?M81.0 - Age-related osteoporosis without current pathological fracture (ICD-10) Ketoacidosis due to diabetes mellitus (08/03/13) ?E11.10 - Type 2 diabetes mellitus with ketoacidosis without coma (ICD-10) Irritable bowel syndrome ?K58.9 - Irritable bowel syndrome without diarrhea (ICD-10) Falls (03/31/12) ?W19.XXXA - Unspecified fall, initial encounter (ICD-10) Epistaxis ?R04.0 - Epistaxis (ICD-10) Diverticulitis of large intestine ?K57.32 - Diverticulitis of large intestine without perforation or abscess without bleeding (ICD-10) Diabetic gastroparesis (08/03/13) ?E11.43 - Type 2 diabetes mellitus with diabetic autonomic (poly)neuropathy (ICD-10) ?K31.84 - Gastroparesis (ICD-10) Coronary artery disease ?I25.10 - Atherosclerotic heart disease of [place] coronary artery without angina pectoris (ICD-10) Concussion (03/29/12) ?S06.0XAA - Concussion with loss of consciousness status unknown, initial encounter (ICD-10) Compression fracture of L2 vertebra with delayed healing ?S32.020G - Wedge compression fracture of second lumbar vertebra, subsequent encounter for fracture with delayed healing (ICD-10) Closed head injury ?S09.90XA - Unspecified injury of head, initial encounter (ICD-10) Closed fracture of superior ramus of right pubis ?S32.511A - Fracture of superior rim of right pubis, initial encounter for closed fracture (ICD-10) Closed fracture of left side of symphysis pubis ?S32.592A - Other specified fracture of left pubis, initial encounter for closed fracture (ICD-10) Closed fracture of left inferior pubic ramus ?S32.592A - Other specified fracture of left pubis, initial encounter for closed fracture (ICD-10) Chronic constipation (07/02/13) ?K59.09 - Other constipation (ICD-10) Anxiety disorder ?F41.9 - Anxiety disorder, unspecified (ICD-10) 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 (ICD-10) Seizure ?R56.9 - Unspecified convulsions (ICD-10) Hypothyroidism ?E03.9 - Hypothyroidism, unspecified (ICD-10) Hyponatremia (12/22/11) ?E87.1 - Hypo-osmolality and hyponatremia (ICD-10) Gastroesophageal reflux disease ?K21.9 - Gastro-esophageal reflux disease without esophagitis (ICD-10) Chronic pain ?G89.29 - Other chronic pain (ICD-10) Asthma ?J45.909 - Unspecified asthma, uncomplicated (ICD-10) Acute adrenal crisis ?E27.2 - Addisonian crisis (ICD-10) POLST (Physician Orders for Life-Sustaining Treatment) ?Z78.9 - Other specified health status (ICD-10) Health care directive on file ?Z78.9 - Other specified health status (ICD-10) High output ileostomy ?R19.8 - Other specified symptoms and signs involving the digestive system and abdomen (ICD-10) ?Z93.2 - Ileostomy status (ICD-10) Hyperkalemia ?E87.5 - Hyperkalemia (ICD-10) Abnormal liver enzymes ?R74.8 - Abnormal levels of other serum enzymes (ICD-10) Dementia ?F03.90 - Unspecified dementia without behavioral disturbance (ICD-10) Cataract ?H26.9 - Unspecified cataract (ICD-10) Dorsalgia ?M54.9 - Dorsalgia, unspecified (ICD-10) Hyperlipidemia ?E78.5 - Hyperlipidemia, unspecified (ICD-10) Unspecified dementia without behavioral disturbance ?F03.90 - Unspecified dementia without behavioral disturbance (ICD-10) Postmenopausal atrophic vaginitis ?N95.2 - Postmenopausal atrophic vaginitis (ICD-10) Convulsions ?R56.9 - Unspecified convulsions (ICD-10) Pressure ulcer of sacral region, unstageable ?L89.150 - Pressure ulcer of sacral region, unstageable (ICD-10) Constipation ?K59.00 - Constipation, unspecified (ICD-10) Primary hypertension ?I10 - Essential (primary) hypertension (ICD-10) Vertebral fracture Osteoarthritis ?M19.90 - Unspecified osteoarthritis, unspecified site (ICD-10) Chronic kidney disease (CKD) stage G3a/A1, moderately decreased glomerular filtration rate (GFR) between 45-59 mL/min/1.73 square meter and albuminuria creatinine ratio less than 30 mg/g ?N18.31 - Chronic kidney disease, stage 3a (ICD-10) 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 - Atherosclerotic heart disease of [place] coronary artery without angina pectoris (ICD-10) GERD (gastroesophageal reflux disease) ?K21.9 - Gastro-esophageal reflux disease without esophagitis (ICD-10) Anxiety ?F41.9 - Anxiety disorder, unspecified (ICD-10) Pelvic fracture ?S32.9XXA - Fracture of unspecified parts of lumbosacral spine and pelvis, initial encounter for closed fracture (ICD-10) Primary adrenocortical insufficiency ?E27.1 - Primary adrenocortical insufficiency (ICD-10) Diabetes mellitus type 1 ?E10.9 - Type 1 diabetes mellitus without complications (ICD-10) Surgical History S/P small bowel resection ?Z90.49 - Acquired absence of other specified parts of digestive tract (ICD-10) H/O angioplasty ?Z98.62 - Peripheral vascular angioplasty status (ICD-10) H/O mastoidectomy ?Z90.89 - Acquired absence of other organs (ICD-10) S/P laparoscopic cholecystectomy ?Z90.49 - Acquired absence of other specified parts of digestive tract (ICD-10) S/P appendectomy ?Z90.49 - Acquired absence of other specified parts of digestive tract (ICD-10) No significant past surgical history Social History Narrative: Patient lives in a care home. Code status DNR DNI What is your current living situation?: I presently have a place to live Problems where you live: unable to answer Problems where you live details: [facility] In the past 12 months, utilities in danger of being shut off: unable to answer In past 12 months, lack of transportation kept you from medical appts, meetings, work, or getting things needed for daily living: unable to answer In the past 12 mos, have been you worried that your food would run out before you had money to buy more?: unable to answer In the past 12 mos, the food you bought just didn't last and you didn't have money to buy more?: unable to answer Smoking Status: Never smoker Nicotine containing products detail: hx not current pt unable to respond appropriately. Second hand tobacco smoke exposure: No How often do you have a drink containing alcohol: never AUDIT-C Alcohol total score: 0 Non-prescribed substance use: denies use and other Non-prescribed substance use details: no use per 3 [facility] ppwk How often does anyone, including family, friends and others, physically hurt you: unable to answer How often does anyone, including family, friends and others, insult or talk down to you: unable to answer How often does anyone, including family, friends and others, threaten you with harm: unable to answer How often does anyone, including family, friends and others, scream or curse at you: unable to answer service: No Exam Narrative: Exam Narrative: Quite pale. As noted seizing as I arrive to assess. Stiffening and looking up to her left. Pupils are dilated at 4 mm and equal. Bit left side of tongue. Not responding to communication or painful stimuli initially. Lungs appear to be clear on reauscultation. Heart is in a rapid rate and appears to be regular. Mild with right greater than left lower extremity dependent edema. Stoma with mixing machine attendant brown stool without evidence of blood. Postoperative scarring the abdomen. Const: Vital Signs, click to edit/add: Vital Signs - 24 hr 03/21/24 20:40 03/21/24 21:03 03/21/24 21:04 Temperature 98.7 F Pulse Rate 108 H 109 H Pulse Rate [Pulse Oximeter] 112 H Respiratory Rate 18 Blood Pressure 152/80 H Blood Pressure [Le ft Upper Arm] 154/87 H Pulse Oximetry 94 97 89 Oxygen Delivery Me thod Room Air 03/21/24 21:15 03/21/24 21:20 03/21/24 21:29 Temperature Pulse Rate 107 H 105 H Pulse Rate [Pulse Oximeter] Respiratory Rate Blood Pressure 132/77 Blood Pressure [Le ft Upper Arm] Pulse Oximetry 93 93 93 Oxygen Delivery Me thod 03/21/24 21:30 03/21/24 21:31 03/21/24 22:00 Temperature Pulse Rate 103 H 103 H 103 H Pulse Rate [Pulse Oximeter] Respiratory Rate Blood Pressure 128/72 Blood Pressure [Le ft Upper Arm] Pulse Oximetry 93 93 95 Oxygen Delivery Me thod 03/21/24 22:01 03/21/24 22:15 Temperature Pulse Rate 97 93 Pulse Rate [Pulse Oximeter] Respiratory Rate Blood Pressure 141/81 H Blood Pressure [Le ft Upper Arm] Pulse Oximetry 94 94 Oxygen Delivery Me thod Documenting provider has reviewed patient's vital signs: yes Course Vital Signs Vital signs: Initial Vital Signs Temperature 98.7 F 03/21/24 20:40 Temperature Source Temporal Artery Scan 03/21/24 20:40 Pulse Rate 112 H 03/21/24 20:40 Respiratory Rate 18 03/21/24 20:40 Blood Pressure 154/87 H 03/21/24 20:40 Blood Pressure Mean 109 H 03/21/24 20:40 Blood Pressure Position Semi-Fowlers 03/21/24 20:40 Pulse Oximetry 94 03/21/24 20:40 Oxygen Delivery Method Room Air 03/21/24 20:40 Vital Signs Temperature 98.7 F 03/21/24 20:40 Pulse Rate 112 H 03/21/24 20:40 Respiratory Rate 18 03/21/24 20:40 Blood Pressure 154/87 H 03/21/24 20:40 Pulse Oximetry 94 03/21/24 20:40 Oxygen Delivery Method Room Air 03/21/24 20:40 Temperature 98.7 F 03/22/24 19:00 Pulse Rate 94 03/22/24 19:00 Respiratory Rate 20 03/22/24 19:00 Blood Pressure 136/70 03/22/24 19:00 Pulse Oximetry 94 03/22/24 19:00 Oxygen Delivery Method Room Air 03/22/24 19:00 Medications Administered Medications: Discontinued Medications Generic Name Dose Route Start Last Admin Trade Name Freq PRN Reason Stop Dose Admin Hydrocortisone Sodium Succinate 100 mg 03/21/24 21:36 03/21/24 22:06 Hydrocortisone Sod Succinate 50 Mg/Ml Inj IVP 03/21/24 21:37 100 mg ONCE ONE Administration Hydrocortisone Sodium Succinate 100 mg 03/22/24 06:00 03/22/24 14:10 Hydrocortisone Sod Succinate 50 Mg/Ml Inj IVP 100 mg Q8H KRANTHI Administration Sodium Chloride 500 mls @ 500 mls/hr 03/21/24 20:50 03/21/24 21:50 0.9 % Sodium Chloride 500 Ml IV 03/21/24 21:49 Infused .Q1H ONE Infusion Levetiracetam 1,500 mg/ Sodium 115 mls @ 480 mls/hr 03/21/24 21:40 03/21/24 22:24 Chloride IVPB 03/21/24 21:46 Infused ONCE ONE Infusion Dextrose/Sodium Chloride 1,000 mls @ 100 mls/hr 03/21/24 23:24 03/22/24 20:42 5 % Dextrose/0.9% Sod Chloride IV 100 mls/hr .Q10H KRANTHI Infusion Levetiracetam 1,500 mg/ Sodium 115 mls @ 460 mls/hr 03/22/24 10:00 03/22/24 10:11 Chloride IVPB 460 mls/hr Q12H KRANTHI Administration Sodium Chloride 1,000 mls @ 1,000 mls/hr 03/22/24 10:52 03/22/24 13:09 0.9 % Sodium Chloride 1000 Ml IV 03/22/24 11:51 Infused .Q1H KRANTHI Infusion Levetiracetam 750 mg/ Sodium 107.5 mls @ 460 mls/hr 03/22/24 19:00 03/22/24 20:42 Chloride IVPB Infused Q12H KRANTHI Infusion Insulin Aspart 0 unit 03/22/24 07:30 03/22/24 17:26 Insulin Aspart 100 Unit/Ml SUBCUT Not Given ACHS KRANTHI Protocol Lorazepam 1 mg 03/21/24 20:56 03/21/24 20:55 Lorazepam 2 Mg/Ml Inj IVP 03/21/24 20:57 1 mg ONCE ONE Administration Pantoprazole Sodium 40 mg 03/21/24 23:24 03/22/24 00:12 Pantoprazole Sodium 40 Mg Inj IVP 03/21/24 23:25 40 mg ONCE ONE Administration Sodium Chloride 5 ml 03/22/24 09:00 03/22/24 08:05 Sodium Chloride 0.9 % (Flush) 10 Ml Syringe IVF Not Given BID KRANTHI Sodium Chloride 250 ml 03/22/24 10:00 03/22/24 10:11 0.9 % Sodium Chloride 250 Ml IV 250 ml Q24H KRANTHI Administration Medical Decision Making MDM Narrative Medical decision making narrative: Considering living situation and recurrent seizure, we will need to be admitted here at a minimum. Will do further evaluation looking for evidence of infection or potential aspiration. Check electrolytes. Monitor for arrhythmia. CVA is in differential. MRI capability is not present here today. I have discussed with hospitalist for admission. Thankfully knows Shira well. Would dose already with hydrocortisone and will be imaging with head CT. Loading dose of levetiracetam. [place] placed. Urinalysis without significant evidence of infection. No further events during time in the emergency department. Labs reviewed with as expected elevated lactate of 5.[address] reviewed by me looks to be without acute abnormality. Medical Records Medical records reviewed: Yes I reviewed the patient's medical records Lab Data Lab results reviewed: Yes I reviewed the patient's lab results Labs: Lab Results 03/21/24 03/21/24 03/21/24 Range/Units 20:50 21:10 21:43 WBC 7.90 (4.50-11.00) K/uL RBC 4.30 (4.00-5.20) m/uL Hgb 13.2 (12.0-16.0) gm/dL Hct 41.1 (33.0-51.0) % MCV 96 (80-100) fL MCH 31 (26-34) pg MCHC 32 (32-36) gm/dL RDW Coeff of Sharmaine 14.5 (11.5-15.5) % Plt Count 209 (140-440) K/uL Neut % (Auto) 68.6 (42.0-72.0) % Lymph % (Auto) 22.5 (20-44) % Bibb % (Auto) 7.7 (0.0-11.0) % Eos % (Auto) 0.5 (0.0-7.0) % Baso % (Auto) 0.3 (0.0-3.0) % Neut # (Auto) 5.42 (1.7-7.0) K/uL Lymph # (Auto) 1.78 (0.90-2.90) K/uL Bibb # (Auto) 0.60 (0.00-0.90) K/UL Eos # (Auto) 0.04 (0.00-0.50) K/uL Baso # (Auto) 0.02 (0.00-0.30) K/uL Abs Immat Gran (auto) 0.03 (0.00-0.30) K/uL Imm/Tot Granulo (auto) 0.4 % VBG pH 7.327 (7.32-7.43) VBG pCO2 46 (40-50) mmHG VBG pO2 47.3 H (25-47) mmHG VBG HCO3 24 (21-28) mmol/L Sodium 133 L (135-149) mmol/L Potassium 4.4 (3.6-5.1) mmol/L Chloride 102 (96-114) mmol/L Carbon Dioxide 23 (20-32) mmol/L Anion Gap 8 (7-15) mEq/L BUN 25 (7-30) mg/dL Creatinine 1.0 (0.5-1.5) mg/dL Estimated GFR 55 ml/min Glucose 151 H (60-115) mg/dL Hemoglobin A1c 8.9 H (0-5.6) % Lactate 5.4 H* (0.5-1.9) mmol/L Calcium 9.3 (8.4-10.6) mg/dL Magnesium 2.2 (1.5-2.6) mg/dL TSH 7.050 H (0.270-4.20) uIU/mL Free T4 0.86 (0.70-1.85) ng/dL Urine Color Yellow (Yellow) Urine Appearance Clear (Clear) Urine pH 5.5 (5.0-8.5) Ur Specific [place] 1.020 (1.000-1.030) Urine Protein 1+ A (Negative) Urine Glucose (UA) Negative (Negative) Urine Ketones Negative (Negative) Urine Blood Trace-lysed A (Negative) Urine Nitrite Negative (Negative) Urine Bilirubin Negative (Negative) Urine Urobilinogen 0.2 (0.2-1.0) Ur Leukocyte Esterase Negative (Negative) Urine RBC 0-2 (0-2) Urine WBC 5-10 A (0-5) Ur Squamous Epith Cells Few (None-Few) Urine Bacteria Few A (None) Fine Granular Casts Few A (None) Urine Yeast Many A (None) Urine Opiates Screen POSITIVE A (Negative) Ur Oxycodone Screen Negative (Negative) Urine Methadone Screen Negative (Negative) Ur Barbiturates Screen Negative (Negative) U Tricyclic Antidepress Negative (Negative) Ur Phencyclidine Scrn Negative (Negative) Ur Amphetamines Screen Negative (Negative) U Methamphetamines Scrn Negative (Negative) U Benzodiazepines Scrn Negative (Negative) Urine Cocaine Screen Negative (Negative) U Marijuana (THC) Screen Negative (Negative) Ur Drug Screen Comment See Note Lab Acknowledgement Test Added ECG Data Attestation: I personally reviewed and interpreted this ECG as follows: (Sinus tachycardia at 108) Discharge Plan Discharge Clinical Impression: Seizure Patient Disposition: Admitted As Observation Condition: Stable
[2024-03-21] MEDS: 0.9 % SODIUM CHLORIDE 500 ML 500 ML IV (20:50)
[2024-03-21 20:55] LABS: Basophils Absolute Auto 0.02 K/uL (0.00-0.30); Basophils Percent Auto 0.3 % (0.0-3.0); Eosinophils Absolute Auto 0.04 K/uL (0.00-0.50); Eosinophils Percent Auto 0.5 % (0.0-7.0); Hematocrit 41.1 % (33.0-51.0); Hemoglobin* 13.2 gm/dL (12.0-16.0); Immature Granulocytes Abs Auto 0.03 K/uL (0.00-0.30); Immature Granulocytes Pct Auto 0.4 %; Lymphocytes Absolute Auto 1.78 K/uL (0.90-2.90); Lymphocytes Percent Auto 22.5 % (20-44); Mean Corpuscular HGB Conc 32 gm/dL (32-36); Mean Corpuscular Hemoglobin 31 pg (26-34); Mean Corpuscular Volume 96 fL (80-100); Monocytes Percent Auto 7.7 % (0.0-11.0); Neutrophils Absolute Auto 5.42 K/uL (1.7-7.0); Neutrophils Percent Auto 68.6 % (42.0-72.0); Platelet Count* 209 K/uL (140-440); RDW Coefficient of Variation % 14.5 % (11.5-15.5)
[2024-03-21] MEDS: LORazepam 2 MG/ML inj 1 MG IVP (20:55)
[2024-03-21 20:58] LABS: Lactate* 5.4 mmol/L (0.5-1.9)
[2024-03-21 20:59] LABS: Slide Review Reflex No
--- OUTSIDE RECORDS SUMMARY | 2024-03-21 21:10 | XMS_ITS | Clinical Summary ---
Author Name Unknown Organization [facility] Address [address] [place] [address] Care Team Providers Care Ham Rolling Machine Operator Name Role Phone Unavailable Primary Care Provider Unavailabl e Source Comments Patient records contain information from all sites at [facility]. For routine questions regarding patient records, call [phone] during business hours, M-F 8:00 AM - 5:00 PM Central Time. Record requests for emergency care only can be directed to [phone] at any time.[facility] Allergies Active Allergy Reactions Criticality Noted [...] Order 1 Unspecified 11 2 Active multivitamin-iron -[id number] (THERAPEUTIC-M) 400 mcg (folic acid) per tablet [...] Disease 05/02/2022 Atherosclerotic Heart Diseas e Of [place] Coronary Artery Without Angina Pectoris 05/02/2022 Hyperlipidemia [...] 05/03/2022 Opioid Use Disorder (OUD) Screening 05/03/2023 Depression Screening (Annual PHQ-2) 11/03/2023 Fall Risk [...] METABOLIC PANEL, S/P Routine 01/06/2024 7:36 AM 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
--- OUTSIDE RECORDS SUMMARY | 2024-03-21 21:10 | XMS_ITS | Clinical Summary ---
Author Name Unknown Organization [employer] [facility] Address [place], [place] [address] Care Team Providers Care Envelope Folding Machine Adjuster Name Role Phone Mercedes, Miladis Lucas RN Unavailable Perla Corrigan RN Unavailable [phone] Onur Schreiber MD Primary Care Provider Vivian Caruso MD Unavailable [phone] Allergies Active Allergy Reactions Criticality Noted Date [...] TIMES A DAY DIRECTED 300 Each 2 12/04/2018 Active loperamide (IMODIUM) 2 mg capsuleIndications: Irritable bowel syndrome, unspecified type TAKE ONE CAPSULE BY MOUTH TWICE DAILY IF NEEDED FOR DIARRHEA 180 capsule 06/23/2019 Active Additional Information Patient taking differently: 2 mg Oral QID, Informant: [facility], Reported on 08/31/2023 Wqpzkhmtdhndr-Lcq-T A-Ginkgo (ONE DAILY WOMEN 50 PLUS) 400-120 mcg-mg tabIndications:Oste oporosis, unspecified osteoporosis type, unspecified pathological fracture presence Take by mouth. 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 25 tablet 2 12/03/2019 Active glucose 4 gram chewable tabletIndications:T ype 1 diabetes mellitus with hypoglycemia and without coma (HC) Take 1 tablet by mouth each time if needed for Blood Gluc < Specify. Wait until they call for this. 150 tablet 6 12/03/2019 Active blood sugar diagnostic (GLUCOCARD VITAL SENSOR) stripIndications:Ty pe 1 diabetes mellitus with hypoglycemia and without coma (HC) Dispense item covered by pt ins. E10.65 IDDM type I, uncontrolled - Test 3 times/day.TEST THREE TIMES A DAY 300 Strip 3 12/03/2019 Active miscellaneous medical supply miscIndications:Com pression fracture of L2 vertebra with delayed healing As directed. New mattress for her hospital bed. Current mattress is from 2013 and is worn out. 1 Units 05/03/2020 Active ULTICARE PEN NEEDLE 29 gauge x 1/2Indications:Typ e 1 diabetes mellitus with hypoglycemia and without coma (HC) USE 3-5 TIMES DAILY PER MD INSTRUCTIONS 500 Each 3 07/24/2020 Active aspirin (ECOTRIN) 81 mg enteric coated tabletIndications:C oronary artery disease involving unga coronary artery of unga heart with unstable angina pectoris (HC) TAKE ONE TABLET DAILY WITH A MEAL AT 8PM 90 tablet 2 10/02/2020 Active Additional Information Patient taking differently: 81 mgOralDAILY EVENING, Informant: [facility], Reported on 08/31/2023 coenzyme q10 100 mg capIndications:Athe rosclerosis of unga coronary artery of unga heart without angina pectoris Take 1 capsule by mouth once daily. Take 1 capsule by mouth daily at 8am 90 capsule 3 11/10/2020 Active cholecalciferol, Vitamin D3, 2,000 unit tabletIndications:C ompression fracture of L1 lumbar vertebra, sequela TAKE TWO TABLETS DAILY AT 8PM 180 tablet 3 11/30/2020 Active Additional Information Patient taking differently: 4,000 unitOralDAILY EVENING, Informant: [facility], Reported on 08/31/2023 levothyroxine (SYNTHROID) 75 mcg tabletIndications:A cquired hypothyroidism TAKE ONE TABLET DAILY BEFORE BREAKFAST AT 8AM 90 tablet 11/30/2020 Active Additional Information Patient taking differently: 75 mcgOralBEFORE BREAKFAST, Informant: [facility], Reported on 08/31/2023 estradioL (ESTRACE) 0.01% (0.1 mg/g) vaginal creamIndications:Va ginal atrophy 1 gm intravaginally every Friday and 09/03/2023 Active olopatadine (PATADAY) 0.2 % ophthalmic solutionIndications :Environmental allergies Place 1 drop into both eyes once daily at 8am 0 09/03/2023 Active ondansetron (ZOFRAN) 4 mg tabletIndications:N ausea Take 1 Tablet (4 mg) by mouth every 4 hours if needed for Nausea/Vomiting. 09/03/2023 Active psyllium 0.52 gram capsuleIndications: High output ileostomy (HC) Take 4 Capsules by mouth three times daily. 0 09/03/2023 Active simethicone chewable (MYLANTA GAS RELIEF; GAS X) 80 mg chewable tabletIndications:H igh output ileostomy (HC) Max dose: 500 mg per 24 hrs 0 09/03/2023 Active sodium chloride 1,000 mg soluble tabletIndications:H yponatremia Take 1,000 mg by mouth three times daily 09/03/2023 Active vitamin B complex (B Complex 1) tabletIndications:P reventive measure Take 1 Tablet by mouth once daily. 0 09/03/2023 Active sodium bicarbonate 650 mg tabletIndications:R enal tubular acidosis, type 4 Take 1 Tablet (650 mg) by mouth three times daily. 0 09/03/2023 Active metoprolol tartrate (LOPRESSOR) 25 mg tabletIndications:C oronary artery disease involving unga coronary artery of unga heart with unstable angina pectoris (HC) Take 0.5 Tablets (12.5 mg) by mouth two times daily. 0 09/03/2023 Active fludrocortisone (FLORINEF) 0.1 mg tabletIndications:A drenal insufficiency (René's disease) (HC) Take 3 Tablets (0.3 mg) by mouth once daily. 90 Tablet 2 12/15/2023 Active Glucagon Emergency Kit, human, 1 mg injection 09/05/2023 Active loperamide (IMODIUM) 2 mg capsule Take 4 mg by mouth each time if needed. Active acetaminophen (TYLENOL) 325 mg tablet Take 1,000 mg by mouth each time if needed. Active diphenoxylate-atrop ine, 2.5-0.025 mg, (LOMOTIL) 2.5-0.025 mg tablet Take 2 Tablets by mouth four times daily. 11/27/2023 Active sertraline (ZOLOFT) 50 mg tabletIndications:A nxiety state Take 1 Tablet (50 mg) by mouth once daily. 12/15/2023 Active insulin glargine, U-100, 100 unit/mL (3 mL) penIndications:Type 1 diabetes mellitus with complication (HC) 4 units QAM and 5 units qPM 02/09/2024 Active insulin aspart, U-100, (NovoLOG Flexpen U-100 [...] sugar 501 or more give 5 units 02/19/2024 Active predniSONE 5 mg/5 mL solutionIndications :Adrenal insufficiency (Knob Noster's disease) (HC) Take 8 mL (8 mg) by mouth once daily with a meal. 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 Call [phone] right after to donate. Essential hypertension 02/19/2017 Type 1 diabetes mellitus with complication 02/19 Overview: She developed Diabetes in 1997. She was diagnosed with Type [address] 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 Zee of Cardiology informed her in 03/2017 that there was no evidence to keep her on the Plavix. She told him she wanted to stay on this and Dr. Zee okayed this. Hyponatremia 01/21/2016 Anxiety state, unspecified 07/26/2015 Arthritis 01/05/2014 Diabetic gastroparesis 08/04/2013 Pain medication agreement 10/21/2012 Last Assessment & Plan: Signed and scanned 09/2012. 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, type 4 [...] Encounters Date Type Department Care Team Description 03/16/2024 Telephone Don, [facility] [address] [place] [address] Vivian Newman MD Medication Management 03/15/2024 Lab Requisition [facility] [phone] Linda Cuevas NP 03/08/2024 Telephone [facility] [address] [place] [address] Vivian Newman MD Medication Management (Questions) 03/01/2024 Lab Requisition [facility] [phone] Onur Schreiber MD 02/27/2024 Telephone [facility] [address] [place] [address] Vivian Newman MD Medication Management (predniSONE 5 mg/5 mL solution) 02/20/2024 Lab Requisition [facility] [phone] Onur Schreiber MD 02/19/2024 Telephone DonDonisn, [facility] [address] [place] [phone] Vivian Newman MD Medication Management (predniSONE 5 mg/5 mL solution ) 02/09/2024 Lab Requisition [facility] [phone] Onur Schreiber MD 02/09/2024 Telephone Don, [facility] [address] [place] [phone] Vivian Newman MD Results 01/28/2024 Telephone DonJosh[facility]meka, [facility] [address] [place] [phone] Vivian Newman MD Diabetes (Blood Sugar Log, Lab Results, and MAR) 01/26/2024 Lab Requisition [facility] [phone] Clarissa Grimes NP 01/19/2024 Telephone Don, [facility] [address] [place] [phone] Vivian Newman MD Medication Management 01/19/2024 Telephone [facility], [facility] [address] [place], [place] [phone] Vivian Newman MD Diabetes 01/15/2024 Orders Only [facility] Scanner 1 scan: (1-Ord) [facility], MULTIPLE LAB RESULTS, 01/15/2024 01/15/2024 Orders Only [facility] Scanner 1 scan: (1-Ord) [facility]ULT[facility]LE LABS, 01/15/2024 01/15/2024 Telephone [facility] Don, [facility] [address] [place], [place] [phone] Vivian Newman MD Results 01/14/2024 2:00 PM CDT Phone Office Visit [facility] [address] [place] [phone] Vivian Newman MD Phone Visit; Follow Up 01/14/2024 Lab Requisition [facility] [phone] Onur Schreiber MD 01/06/2024 Telephone [facility] Don[facility] [address] [place] [phone] Vivian Newman MD Results 01/05/2024 Lab Requisition [facility] [phone] Clarissa Grimes, HI LIFT OPERATOR 12/29/2023 Lab Requisition [facility] [phone] Clarissa Grimes, HI LIFT OPERATOR 12/18/2023 Lab Requisition [facility] [phone] Onur Schreiber MD from Last 3 Months [...] Disease Father heart attack d ied of CT at 62 Other Maternal Grandmother at 99.5 [...] Comments Blood Pressure 115/60 12/15/2023 2:20 PM BILINGUAL CASE MANAGER Pulse 84 12/15/2023 2:20 PM BILINGUAL CASE MANAGER Temperature 36.9 ??C (98.5 ??F) 09/04/2023 1:15 AM CD T Respiratory Rate 14 09/04/2023 1:15 AM CDT Oxygen Saturation 95% 09/04/2023 1:15 AM CDT Inhaled Oxygen Concentration - - Weight 46.2 kg (101 lb 12.8 oz) 12/15/2023 2:20 PM BILINGUAL CASE MANAGER Height 157.5 cm (5' 2) 08/31/2023 2:35 AM CDT Body Mass Index 18.62 08/31/2023 2:35 AM CDT Plan of Treatment Upcoming Encounters Date Type Department Care Team (Late st Contact Info) Description 04/01/2024 3:00 PM CDT Office Visit [facility] [address] [place] [phone] Vivian Newman MD [address] [place] [phone] Health Maintenance Due Date Last Done Comments [...] Associated Diagnosis Comments BASIC METABOLIC PANEL Routine 03/16/2024 7:37 AM CDT Primary adrenocortical insufficiency (HC) BASIC METABOLIC PANEL Routine 03/02/2024 8:32 AM CDT Essential (primary) hypertension Primary adrenocortical insufficiency (HC) BASIC METABOLIC PANEL Routine 02/10/2024 7:44 AM CDT Hyperkalemia Hypo-osmolality and hyponatremia BASIC METABOLIC PANEL Routine 01/27/2024 7:50 AM CDT Hypo-osmolality and hyponatremia SCAN-LABORATORY REPORT 01/15/2024 12:00 AM CDT SCAN-LABORATORY REPORT 01/15/2024 12:00 AM CDT BASIC METABOLIC PANEL Routine 01/06/2024 7:36 AM BILINGUAL CASE MANAGER Primary adrenocortical insufficiency (HC) BASIC METABOLIC PANEL Routine 12/30/2023 7:39 AM BILINGUAL CASE MANAGER Hypo-osmolality and hyponatremia ELECTROLYTE PANEL Routine 12/23/2023 7:2 2 AM BILINGUAL CASE MANAGER Addisonian crisis (HC) from Last 3 Months Results * (ABNORMAL) BASIC METABOLIC PANEL (03/16/2024 7:37 AM CDT) Only the most recent of6 resultswithin the time period is included. SODIUM 134(L) 136 - 145 mmol/L 03/16/2024 8:39 AM [facility] POTASSIUM 5.0 3.5 - 5.1 mmol/L 03/16/2024 8:39 AM [facility] CHLORIDE 97(L) 98 - 107 mmol/L 03/16/2024 8:39 AM [facility] CO2,TOTAL 27 22 - 29 mmol/L 03/16/2024 8:39 AM [facility] ANION GAP 10 5 - 18 03/16/2024 8:39 AM [facility] GLUCOSE 255(H) 70 - 99 mg/dL 03/16/2024 8:39 AM [facility] CALCIUM 9.0 8.8 - 10.2 mg/dL 03/16/2024 8:39 AM [facility] BUN 19 8 - 23 mg/dL 03/16/2024 8:39 AM [facility] CREATININE 1.07(H) 0.50 - 0.90 mg/dL 03/16/2024 8:39 AM [facility] BUN/CREAT RATIO 18 10 - 20 8:39 AM [facility] eGFR 51(L) >90 mL/min/1.7 3m2 03/16/2024 8:[address] [facility] Comment:As of 2022, eG FR is calculated by the CKD-EPI creatinine equation without race adjustment. ??eGFR can be influenced by muscle mass, exercise, and diet. ??The reported eGFR is an estimation only and is only applicable if the renal function is stable. Blood BLOOD SPECIMEN / Unknown Butterfly / Unknown 03/16/2024 7:37 AM CDT 03/16/2024 8:16 AM CDT Linda Cuevas NP CHEMISTRY Performing Organization Address [facility]/ZIP Co de Phone Number [facility] [address] [place] [address] * SCAN-LABORATORY REPORT (01/15/2024 12:00 AM CDT) Only the most recent of2 resultswithin the time period is included. Scanner OTHER * (ABNORMAL) ELECTROLYTE PANEL (12/23/2023 7:22 AM BILINGUAL CASE MANAGER) SODIUM 130(L) 136 - 145 mmol/L 12/23/2023 8:37 AM [facility] POTASSIUM 5.2(H) 3.5 - 5.1 mmol/L 12/23/2023 8:37 AM [facility] CHLORIDE 96(L) 98 - 107 mmol/L 12/23/2023 8:37 AM [facility] CO2,TOTAL 23 22 - 29 mmol/L 12/23/2023 8:37 [address] BILINGUAL CASE [address]NAGER [facility] ANION GAP 11 5 - 18 12/23/2023 8:37 [address] BILINGUAL CASE [address]GER [facility] Blood BLOOD SPECIMEN / Unknown Butterfly / Unknown 12/23/2023 7:22 AM BILINGUAL CASE MANAGER 12/23/2023 8:11 AM BILINGUAL CASE MANAGER Onur Schreiber MD CHEMISTRY Performing Organization Address City/[facility]/ZIP Co de Phone Number [facility] [address] [place] [address] from Last 3 Months Advance Directives Documents on File Type Date Recorded Patient Telegraph Messenger Expl anation POLST 01/05/2018 11:42 AM TRISTEN YODER, 01/02/18 Healthcare Directive 06/02/2017 9:37 AM AN ATOMMoreno BEQUEST, [facility] [place] 05/28/2017 POLST 07/12/2014 2:25 PM TRISTEN MONSALVE, 07/12/2014 POLST 08/19/2012 3:55 PM POLST, TOOTIE CYR, 08/11/12 Healthcare Directive 04/30/2012 3:38 PM HO NE DNR REQUEST FORM, [facility], 04/16/12 * DNR (Latest Code Status on [...] Code Status Discussion: Not Discussed Care Teams Envelope Folding Machine Adjuster Relationship Specialty Start Date End Date Onur Schreiber MD [address] [place] [address] PCP - General Family Practice 04/17/22 Miladis Long, RN [facility] [address] [address] Conventional Mortgage Underwriter - [facility] Registered Nurse 08/27/21 Perla Corrigan RN [address] [place] [id number] Conventional Mortgage Underwriter - [facility] Registered Nurse 08/27/21 Vivian Newman MD [address] [address] [facility] 03/03/24
--- OUTSIDE RECORDS SUMMARY | 2024-03-21 21:10 | XMS_ITS | Referral Summary ---
Author Name Unknown Organization [facility] Address [address] [place] [address] Care Team Providers Care Wheel Alignment Technician Name Role Phone Unavailable Primary Care Provider Unavailabl e Source Comments Patient records contain information from all sites at [facility]. For routine questions regarding patient records, call [phone] during business hours, M-F 8:00 AM - 5:00 PM Central Time. Record requests for emergency care only can be directed to [phone] at any time.[facility] Allergies Active Allergy Reactions Criticality Noted [...] Order 1 Unspecified 11 2 Active multivitamin-iron -PB-Gr-gtukaixw (THERAPEUTIC-M) 400 mcg (folic acid) per tablet [...] Disease 05/02/2022 Atherosclerotic Heart Diseas e Of [place] Coronary Artery Without Angina Pectoris 05/02/2022 Hyperlipidemia [...] PANEL, S/P Routine 01/06/2024 7:36 AM MANAGER ORANGE from Last 3 Months or Most Recently Relevant to Health Maintenance Advance Directives For more information, please contact: [phone] Documents on File Type Date Recorded Patient [place] Carpenter Expl anation Advance Directives 03/10/2023 10:42 AM [...] Name Relationship Healthcare Agent Relationship Communication Gianna Shauncole [facility] Health Care Agent
--- OUTSIDE RECORDS SUMMARY | 2024-03-21 21:10 | XMS_ITS ---
Author Name Unknown Organization [facility] Address [address] [place] [address] Care Team Providers Care Transonic Engineer Name Role Phone Unavailable Unavailable Unavailable Surgery Details Not on file Complications Check Surgery Details section. Procedure Estimated Blood Loss Check Surgery Details section. Procedure Findings Check Surgery Details section. Procedure Specimens Taken Check Surgery Details section.
[2024-03-21 21:12] LABS: Chloride* 102 mmol/L (96-114); Potassium* 4.4 mmol/L (3.6-5.1); Sodium* 133 mmol/L (135-149)
[2024-03-21 21:15] LABS: Anion Gap 8 mEq/L (7-15); Blood Urea Nitrogen* 25 mg/dL (7-30); Carbon Dioxide* 23 mmol/L (20-32); Estimated Glomerular Filt Rate 55 ml/min; Glucose* 151 mg/dL (60-115)
[2024-03-21 21:16] LABS: Calcium* 9.3 mg/dL (8.4-10.6)
--- NOTE | 2024-03-21 21:32 | CT_ITS ---
Patient: BELTRAN SOMMERS Facility:?[facility] Patient ID:?[id number] Site Patient ID:?[id number]. Site :?[id number] Study:?CT-Head W/O-03/21/2024 9:53:30 PM Ordering Physician:FE Final Report: Indication: Seizure Technique: CT Head without IV contrast Comparison: None Findings: Brain Parenchyma: Mild global cortical involutional changes. No acute infarct, acute intracranial hemorrhage, mass effect, or midline shift. Periventricular and supraventricular white matter hypodensity, suggestive of chronic microvascular ischemic changes. Ventricles: No hydrocephalus. Mild ventricular enlargement, commensurate with the degree of cortical involutional changes and sulcal prominence. Extra-axial Spaces: No abnormal fluid collection. Paranasal sinuses: No significant mucosal thickening. Orbits: Unremarkable. Mastoid Sinuses: Unremarkable. Cranium: No acute fracture. Soft tissues: Unremarkable. Impression: No evidence of an acute intracranial process. Please note that all CT scans at this facility use dose modulation, iterative reconstruction, and/or weight-based dosing when appropriate to reduce radiation dose to as low as reasonably achievable. Dictated by Andrés Hill MD @ 03/21/2024 10:11:31 PM Signed by:?Andrés Hill MD @03/21/2024 10:11:31 PM (Electronic Signature)
[2024-03-21 21:36] LABS: Appearance Urine Clear (Clear); Bilirubin Urine Negative (Negative); Color Urine Yellow (Yellow); Glucose Urine Negative (Negative); Ketones Urine Negative (Negative)
[2024-03-21 21:37] LABS: Bacteria Urine Few; Blood Urine Trace-lysed (Negative); Leukocyte Esterase Urine Negative (Negative); Nitrite Urine Negative (Negative); Protein Urine 1+ (Negative); RBC Urine 0-2 (0-2); Squamous Epithelial Cell Urine Few (None-Few); Urobilinogen Urine 0.2 (0.2-1.0); pH Urine 5.5 (5.0-8.5)
[2024-03-21 21:38] LABS: Fine Granular Casts Urine Few
[2024-03-21] MEDS: HYDROCORTISONE SOD SUCCINATE 50 MG/ML inj 100 MG IVP (22:06)
--- NOTE | 2024-03-21 23:30 | PM.IMHP1 ---
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 She was noted to have an acute tonic clonic seizure in her care center this evening. This was witnessed as tonic clonic. EMS was summoned. She was brought to our ER where she had regained alertness but was not speaking and again seized for about 1 minute. She was given Ativan at about the same time her seizure stopped. She did have a small abrasion to her tongue during the 2nd seizure. There is no family or other caregiver information other than things were ?normal earlier today. There was some confusion regarding if Becca has a chronic seizure disorder. I can find in the chart she had a seizure in April of 2022 when she fell and had a fracture of her pelvis. She is not on ASM (anti seizure medications). ER COURSE: Loaded with Keppra and hydrocortisone, head CT, labs, gray cath placed. Hospital medicine team was asked for observation overnight. CODE STATUS: DNR/DNI EMERGENCY CONTACT PLAN: Torey Stauffer? Son?Rel to [facility]? [phone]?Cell Phone? -the ER contacted Torey and he is aware his mom has been admitted. I've updated the PFSH, medications and allergies in the Expanse tabs. INVESTIGATIONS: LABS/MICRO/ECG/IMAGING Head CT Impression: No evidence of an acute intracranial process. CBC is normal. With a hemoglobin of 13.2, I suspect she might be a little hemoconcentrated. Her chemistry panel is reassuring. She has chronic hyponatremia. She is at 133. tonight. Her blood sugar is 151. Her lactate is elevated at 5.4 TSH is 7.05 Urine is 1+ protein otherwise negative for evidence of infection. She does have a Gray catheter that was placed in the ER. Ordered as a lab add on: VBG, free T4, magnesium, A1c Ordered when she arrived on the floor: repeat lactate, blood culture. REVIEW OF SYSTEMS: Nearly impossible as patient is obtunded PHYSICAL EXAM: CONSTITUTIONAL: Becca is resting comfortably, no obvious facial asymmetry. Does not awake to her name or gentle touch appearing. Cachectic. VITAL SIGNS: see record. HEENT: Normocephalic. PERRL, conjunctivae pink, no scleral icterus. Ears and nose externally normal. Pharynx not examined. tongue has small abrasion that is hemostatic. NECK: No JVD. No carotid bruit, no thyromegaly, no adenopathy. CHEST: Clear to auscultation bilaterally HEART: S1 and S2 normal. No harsh murmurs. E MUSCULOSKELETAL: No gross joint deformity or swelling. NEURO: Obtunded without obvious asymmetry. SKIN: No rashes, petechiae, concerning changes PSYCHIATRIC: Obtunded. ADMIT TO MEDSURG: FLOOR CARE DVT: SCDs GI: IV PPI, NPO current Time spent: Today I spent 75 minutes seeing the patient, discussing the patient with ER staff, reviewing Expanse and EPIC notes/diagnostics, discussing the care plan with our care time that includes social work, PT/OT, pharmacy, RT, jail and documenting my impressions and plan in the medical record. [facility] Medical History (Updated 03/22/24 @ 00:17 by Leigh Ann Reaves MD) Seizure ?R56.9 - Unspecified convulsions (ICD-10) Elevated liver transaminase level ?R74.01 - Elevation of levels of liver transaminase levels (ICD-10) Addisonian crisis ?E27.2 - Addisonian crisis (ICD-10) Acute hyperglycemia ?R73.9 - Hyperglycemia, unspecified (ICD-10) Ileostomy in place ?Z93.2 - Ileostomy status (ICD-10) Frailty syndrome in geriatric patient ?R54 - Age-related physical debility (ICD-10) Chronic hyponatremia ?E87.1 - Hypo-osmolality and hyponatremia (ICD-10) Hyperkalemia (12/22/11) ?E87.5 - Hyperkalemia (ICD-10) Acute cystitis without hematuria ?N30.00 - Acute cystitis without hematuria (ICD-10) Physical deconditioning ?R53.81 - Other malaise (ICD-10) Low body weight due to inadequate caloric intake ?R63.6 - Underweight (ICD-10) Adult failure to thrive ?R62.7 - Adult failure to thrive (ICD-10) Weakness ?R53.1 - Weakness (ICD-10) Chronic pain ?G89.29 - Other chronic pain (ICD-10) Altered mental status ?R41.82 - Altered mental status, unspecified (ICD-10) Atrial fibrillation ?I48.91 - Unspecified atrial fibrillation (ICD-10) Diabetes mellitus type 1 (12/22/11) ?E10.9 - Type 1 diabetes mellitus without complications (ICD-10) Renal tubular acidosis, type 4 ?N25.89 - Other disorders resulting from impaired renal tubular function (ICD-10) Polypharmacy ?Z79.899 - Other correction (current) drug therapy (ICD-10) Osteoporosis ?M81.0 - Age-related osteoporosis without current pathological fracture (ICD-10) Ketoacidosis due to diabetes mellitus (08/03/13) ?E11.10 - Type 2 diabetes mellitus with ketoacidosis without coma (ICD-10) Irritable bowel syndrome ?K58.9 - Irritable bowel syndrome without diarrhea (ICD-10) Falls (03/31/12) ?W19.XXXA - Unspecified fall, initial encounter (ICD-10) Epistaxis ?R04.0 - Epistaxis (ICD-10) Diverticulitis of large intestine ?K57.32 - Diverticulitis of large intestine without perforation or abscess without bleeding (ICD-10) Diabetic gastroparesis (08/03/13) ?E11.43 - Type 2 diabetes mellitus with diabetic autonomic (poly)neuropathy (ICD-10) ?K31.84 - Gastroparesis (ICD-10) Coronary artery disease ?I25.10 - Atherosclerotic heart disease of [place] coronary artery without angina pectoris (ICD-10) Concussion (03/29/12) ?S06.0XAA - Concussion with loss of consciousness status unknown, initial encounter (ICD-10) Compression fracture of L2 vertebra with delayed healing ?S32.020G - Wedge compression fracture of second lumbar vertebra, subsequent encounter for fracture with delayed healing (ICD-10) Closed head injury ?S09.90XA - Unspecified injury of head, initial encounter (ICD-10) Closed fracture of superior ramus of right pubis ?S32.511A - Fracture of superior rim of right pubis, initial encounter for closed fracture (ICD-10) Closed fracture of left side of symphysis pubis ?S32.592A - Other specified fracture of left pubis, initial encounter for closed fracture (ICD-10) Closed fracture of left inferior pubic ramus ?S32.592A - Other specified fracture of left pubis, initial encounter for closed fracture (ICD-10) Chronic constipation (07/02/13) ?K59.09 - Other constipation (ICD-10) Anxiety disorder ?F41.9 - Anxiety disorder, unspecified (ICD-10) 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 (ICD-10) Seizure ?R56.9 - Unspecified convulsions (ICD-10) Hypothyroidism ?E03.9 - Hypothyroidism, unspecified (ICD-10) Hyponatremia (12/22/11) ?E87.1 - Hypo-osmolality and hyponatremia (ICD-10) Gastroesophageal reflux disease ?K21.9 - Gastro-esophageal reflux disease without esophagitis (ICD-10) Chronic pain ?G89.29 - Other chronic pain (ICD-10) Asthma ?J45.909 - Unspecified asthma, uncomplicated (ICD-10) Acute adrenal crisis ?E27.2 - Addisonian crisis (ICD-10) POLST (Physician Orders for Life-Sustaining Treatment) ?Z78.9 - Other specified health status (ICD-10) Health care directive on file ?Z78.9 - Other specified health status (ICD-10) High output ileostomy ?R19.8 - Other specified symptoms and signs involving the digestive system and abdomen (ICD-10) ?Z93.2 - Ileostomy status (ICD-10) Hyperkalemia ?E87.5 - Hyperkalemia (ICD-10) Abnormal liver enzymes ?R74.8 - Abnormal levels of other serum enzymes (ICD-10) Dementia ?F03.90 - Unspecified dementia without behavioral disturbance (ICD-10) Cataract ?H26.9 - Unspecified cataract (ICD-10) Dorsalgia ?M54.9 - Dorsalgia, unspecified (ICD-10) Hyperlipidemia ?E78.5 - Hyperlipidemia, unspecified (ICD-10) Unspecified dementia without behavioral disturbance ?F03.90 - Unspecified dementia without behavioral disturbance (ICD-10) Postmenopausal atrophic vaginitis ?N95.2 - Postmenopausal atrophic vaginitis (ICD-10) Convulsions ?R56.9 - Unspecified convulsions (ICD-10) Pressure ulcer of sacral region, unstageable ?L89.150 - Pressure ulcer of sacral region, unstageable (ICD-10) Constipation ?K59.00 - Constipation, unspecified (ICD-10) Primary hypertension ?I10 - Essential (primary) hypertension (ICD-10) Vertebral fracture Osteoarthritis ?M19.90 - Unspecified osteoarthritis, unspecified site (ICD-10) Chronic kidney disease (CKD) stage G3a/A1, moderately decreased glomerular filtration rate (GFR) between 45-59 mL/min/1.73 square meter and albuminuria creatinine ratio less than 30 mg/g ?N18.31 - Chronic kidney disease, stage 3a (ICD-10) 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 - Atherosclerotic heart disease of [place] coronary artery without angina pectoris (ICD-10) GERD (gastroesophageal reflux disease) ?K21.9 - Gastro-esophageal reflux disease without esophagitis (ICD-10) Anxiety ?F41.9 - Anxiety disorder, unspecified (ICD-10) Pelvic fracture ?S32.9XXA - Fracture of unspecified parts of lumbosacral spine and pelvis, initial encounter for closed fracture (ICD-10) Primary adrenocortical insufficiency ?E27.1 - Primary adrenocortical insufficiency (ICD-10) Diabetes mellitus type 1 ?E10.9 - Type 1 diabetes mellitus without complications (ICD-10) Surgical History S/P small bowel resection ?Z90.49 - Acquired absence of other specified parts of digestive tract (ICD-10) H/O angioplasty ?Z98.62 - Peripheral vascular angioplasty status (ICD-10) H/O mastoidectomy ?Z90.89 - Acquired absence of other organs (ICD-10) S/P laparoscopic cholecystectomy ?Z90.49 - Acquired absence of other specified parts of digestive tract (ICD-10) S/P appendectomy ?Z90.49 - Acquired absence of other specified parts of digestive tract (ICD-10) No significant past surgical history Social History Narrative: Patient lives in a senior living. Code status DNR DNI What is your current living situation?: I presently have a place to live Problems where you live: unable to answer Problems where you live details: [facility] In the past 12 months, utilities in danger of being shut off: unable to answer In past 12 months, lack of transportation kept you from medical appts, meetings, work, or getting things needed for daily living: unable to answer In the past 12 mos, have been you worried that your food would run out before you had money to buy more?: unable to answer In the past 12 mos, the food you bought just didn't last and you didn't have money to buy more?: unable to answer Smoking Status: Never smoker Nicotine containing products detail: hx not current pt unable to respond appropriately. Second hand tobacco smoke exposure: No How often do you have a drink containing alcohol: never AUDIT-C Alcohol total score: 0 Non-prescribed substance use: denies use and other Non-prescribed substance use details: no use per 3 links ppwk How often does anyone, including family, friends and others, physically hurt you: unable to answer How often does anyone, including family, friends and others, insult or talk down to you: unable to answer How often does anyone, including family, friends and others, threaten you with harm: unable to answer How often does anyone, including family, friends and others, scream or curse at you: unable to answer service: No Meds Home Medications and Allergies Home Medications Medication Instructions Recorded Confirmed Type cholecalciferol (vitamin D3) 50 4,000 unit PO HS 05/02/22 02/23/24 History mcg (2,000 unit) tablet coenzyme Q10 100 mg capsule 100 mg PO HS 05/02/22 02/23/24 History estradiol 0.01% (0.1 mg/gram) 1 appful vaginal .MOTH@HS 05/02/22 02/23/24 History vaginal cream hydrocortisone 5 mg tablet 10 - 15 mg PO BID 05/02/22 02/23/24 History lactobacillus combination no.4 3 3,000 mmu cells PO DAILY 05/02/22 02/23/24 History billion cell capsule (Probiotic) levothyroxine 75 mcg tablet 75 mcg PO DAILY 05/02/22 02/23/24 History multivit-iron 18 mg-folic acid 400 1 tab PO DAILY 05/02/22 02/23/24 History mcg-calcium 500 mg-minerals tablet (Women's One Daily) olopatadine 0.2 % eye drops 1 drp ophthalmic (eye) DAILY 05/02/22 02/23/24 History vitamin B complex (Vitamins B 1 cap PO DAILY 05/02/22 02/23/24 History Complex capsule) acetaminophen 500 mg capsule 1,000 mg PO TID PRN 05/28/22 02/23/24 History ondansetron HCl 4 mg tablet 4 mg PO Q6H PRN 05/28/22 02/23/24 History simethicone 80 mg chewable tablet 80 mg PO TID 05/28/22 02/23/24 History aspirin 81 mg chewable tablet 81 mg PO HS 03/03/23 02/23/24 History glucose 4 gram chewable tablet 4 g PO Q15M PRN 03/03/23 02/23/24 History (Dex4 Glucose) sertraline 50 mg tablet 50 mg PO DAILY 03/03/23 02/23/24 History loperamide 2 mg capsule 4 mg PO BID PRN 03/27/23 02/23/24 History glucagon 1 mg solution for 1 mg IM ONCE PRN 09/19/23 02/23/24 History injection (Glucagon Emergency Kit) insulin aspart U-100 100 unit/mL 5 sliding scale dose subcut 09/19/23 02/23/24 History (3 mL) subcutaneous pen USEASDIRECTD insulin aspart U-100 100 unit/mL 7 - 10 unit subcut TIDWM 09/19/23 02/23/24 History (3 mL) subcutaneous pen nitroglycerin 0.4 mg sublingual 0.4 mg sublingual Q5M PRN 09/19/23 02/23/24 History tablet morphine 15 mg tablet,extended 15 mg PO TID 11/30/23 02/23/24 History release Allergies Allergy/AdvReac Type Severity Reaction Status Date / Time adhesive tape Allergy Mild Rash Verified 03/21/24 20:43 diclofenac Allergy Unknown Verified 03/21/24 20:43 aspartame Allergy Verified 03/21/24 20:43 beclomethasone Allergy Verified 03/21/24 20:43 bisacodyl Allergy Verified 03/21/24 20:43 dexamethasone Allergy Verified 03/21/24 20:43 doxycycline Allergy Verified 03/21/24 20:43 erythromycin base Allergy Verified 03/21/24 20:43 gabapentin Allergy Verified 03/21/24 20:43 hydrochlorothiazide Allergy Verified 03/21/24 20:43 lactase [From Dairy Aid] Allergy Verified 03/21/24 20:43 meclizine Allergy Verified 03/21/24 20:43 metformin Allergy Verified 03/21/24 20:43 metoclopramide Allergy Verified 03/21/24 20:43 nabumetone [From Relafen] Allergy Verified 03/21/24 20:43 propranolol Allergy Verified 03/21/24 20:43 raloxifene Allergy Verified 03/21/24 20:43 ramipril Allergy Verified 03/21/24 20:43 tobramycin Allergy Verified 03/21/24 20:43 venlafaxine Allergy Verified 03/21/24 20:43 Exam Const: Vital Signs, click to edit/add: Vital Signs - 24 hr 03/21/24 20:40 03/21/24 21:03 03/21/24 21:04 Temperature 98.7 F Pulse Rate 108 H 109 H Pulse Rate [Pulse Oximeter] 112 H Respiratory Rate 18 Blood Pressure 152/80 H Blood Pressure [Le ft Upper Arm] 154/87 H Pulse Oximetry 94 97 89 Oxygen Delivery Me thod Room Air 03/21/24 21:15 03/21/24 21:20 03/21/24 21:29 Temperature Pulse Rate 107 H 105 H Pulse Rate [Pulse Oximeter] Respiratory Rate Blood Pressure 132/77 Blood Pressure [Le ft Upper Arm] Pulse Oximetry 93 93 93 Oxygen Delivery Me thod 03/21/24 21:30 03/21/24 21:31 03/21/24 22:00 Temperature Pulse Rate 103 H 103 H 103 H Pulse Rate [Pulse Oximeter] Respiratory Rate Blood Pressure 128/72 Blood Pressure [Le ft Upper Arm] Pulse Oximetry 93 93 95 Oxygen Delivery Me thod 03/21/24 22:01 03/21/24 22:15 03/21/24 22:30 Temperature Pulse Rate 97 93 92 Pulse Rate [Pulse Oximeter] Respiratory Rate Blood Pressure 141/81 H Blood Pressure [Le ft Upper Arm] Pulse Oximetry 94 94 94 Oxygen Delivery Me thod 03/21/24 22:32 03/21/24 22:45 03/21/24 23:00 Temperature Pulse Rate 93 91 88 Pulse Rate [Pulse Oximeter] Respiratory Rate Blood Pressure 97/57 L Blood Pressure [Le ft Upper Arm] Pulse Oximetry 94 95 95 Oxygen Delivery Me thod 03/21/24 23:01 Temperature Pulse Rate 89 Pulse Rate [Pulse Oximeter] Respiratory Rate Blood Pressure 91/58 L Blood Pressure [Le ft Upper Arm] Pulse Oximetry 95 Oxygen Delivery Il cristy Hospitalist - H&P: Result Labs Labs: Short CBC 03/21/24 Range/Units 20:50 WBC 7.90 (4.50-11.00) K/uL Hgb 13.2 (12.0-16.0) gm/dL Hct 41.1 (33.0-51.0) % Plt Count 209 (140-440) K/uL BMP 03/21/24 20:50 Sodium 133 L Potassium 4.4 Chloride 102 Carbon Dioxide 23 BUN 25 Creatinine 1.0 Glucose 151 H Calcium 9.3 Urine 03/21/24 Range/Units 21:10 Urine Color Yellow (Yellow) Urine Appearance Clear (Clear) Urine pH 5.5 (5.0-8.5) Ur Specific [place] 1.020 (1.000-1.030) Urine Protein 1+ A (Negative) Urine Glucose (UA) Negative (Negative) Assessment and Plan Assessment and plan (1) Seizure: Problem comment: 2 witnessed tonic clonic seizures evening of 03/21. 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 cause of seizure is undetermined. Blood sugar, electrolytes, hyperthyroidism ruled out. Not hypoxic. Not uremic. No obvious drug intoxication. No obvious head bleed or CVA. -alert between seizures -b/c of 2nd seizure we loaded with keppra (1500mg) and will repeat [id number] until day service will discuss with neuro -imaging her chest, f/u on blood culture, monitor clinical progress, monitor blood sugar all recommended and passed onto day team. Status: Acute (2) Elevated lactic acid level: Problem comment: -witnessed tonic clonic movements; given fluid bolus and recheck pending Status: Acute (3) Addisonian crisis: Problem comment: -unclear why she had seizure; I started her empirically on high dose hydrocortisone while we sort out the seizures. She has presented before in adrenal crisis albiet usually with electrolyte abnl. Status: Acute (4) Primary adrenocortical insufficiency: Problem comment: -administered stress dose steroids, hydrocortisone 100 mg IV q8 -obtunded from Ativan; continue NPO and monitoring seizure status. Status: Chronic (5) Diabetes: Problem comment: -glucose normal in the ED (151), will order q4h accuchecks and SSI. A1C pending. restart home meds once awake and eating. -Patient is quite brittle with her diabetes. She has type 1 diabetes so requires regular insulin dosing but also requires regular p.o. food and fluid. Due to alterations in mental status, variations in oral intake and ostomy output managing her nutrition, blood sugar, insulin has been difficult. Status: Acute (6) Ileostomy in place: Problem comment: History of high output from ileostomy. Status: Acute (7) Chronic hyponatremia: Problem comment: - Primarily due to adrenal insufficiency. History of high ostomy output. Baseline Na low 130s Status: Acute (8) Dementia: Problem comment: - continue with supportive efforts Status: Acute (9) Frailty syndrome in geriatric patient: Problem comment: - resides in [facility] facility. Discharge back to [facility] today Status: Acute (10) Polypharmacy: Problem comment: Multiple unstable medical problems receiving multiple treatments requiring close monitoring Status: Acute (11) Abnormality of rib determined by X-ray: Problem comment: - no hypoxia upon admission. will let day team decide about imaging chest. - chest x-ray 02/23/2024 demonstrates expansile lucent lesion of right posterior 9th rib, possibility of multiple myeloma versus metastatic disease. - called and discussed abnormal finding with her son, Torey, . Plan for now is to treat underlying condition as specified for current hospital presentation and consider whether not to do any additional studies about the abnormal rib x-ray finding in the future. Status: Acute (12) Chronic pain: Problem comment: She has been on morphine on and off. This is been used for chronic pain in her back from compression fractures as well as generalized pain. It may also have benefits for her high output ostomy. At discharge I have switched her to oral liquid morphine to see if this is more effectively absorbed than MS Contin due to her high output ostomy. Status: Acute (13) Coronary artery disease: Problem comment: - h/o stenting Status: Chronic
[2024-03-21 23:57] LABS: HCO3 VBG 24 mmol/L (21-28); PCO2 VBG 46 mmHG (40-50); PO2 VBG 47.3 mmHG (25-47); pH VBG 7.327 (7.32-7.43)
[2024-03-22] VITALS (11 sets, daily range): BP systolic 124–169; BP diastolic 57–98; PULSE 75–94; RESP 18–20; TEMP 35.9–37.1; O2SAT 94–99
[2024-03-22] MEDS: 5 % DEXTROSE/0.9% SOD CHLORIDE 1,000 ML 100 ML IV ×2 (00:11→10:10)
[2024-03-22] MEDS: PANTOPRAZOLE SODIUM 40 MG INJ IVP (00:12)
[2024-03-22 00:33] LABS: Lactate* 2.8 mmol/L (0.5-1.9)
[2024-03-22 00:57] LABS: Magnesium* 2.2 mg/dL (1.5-2.6)
[2024-03-22 00:58] LABS: Hemoglobin A1C* 8.9 % (0-5.6)
[2024-03-22 01:15] LABS: Free T4 Free Thyroxine* 0.86 ng/dL (0.70-1.85)
[2024-03-22] MEDS: HYDROCORTISONE SOD SUCCINATE 50 MG/ML inj 100 MG IVP ×2 (06:16→14:10)
--- NOTE | 2024-03-22 06:43 | PC.NURSE ---
Arrived to floor at 2330. Very sleepy but able to be aroused with movement. VSS sat >90% on RA. Turn and repo q2h. Ostomy producing liquid brown stool. [place] in place and draining.
[2024-03-22] MEDS: INSULIN ASPART 100 UNIT/ML SUBCUT ×2 (08:04→11:56)
--- NOTE | 2024-03-22 09:28 | P.IMPN_ITS ---
Progress Note: A&P Assessment and plan (1) Seizure: Problem details: 2 witnessed tonic clonic seizures evening of 03/21, 1 of those witnessed in the ED. 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 cause of seizure is undetermined, limited documentation on this. Blood sugar, electrolytes, hyperthyroidism ruled out. Not hypoxic. Not uremic. No obvious head bleed or CVA. -alert between seizures - this morning, 03/22, remains quite obtunded, protecting airway -b/c of 2nd seizure we loaded with keppra (1500mg) and will repeat [id number] - second dose given 03/22 at 1000am -UC pending, BC pending, MRSA pending. UDS ordered. CXR ordered -monitoring clinical progress, monitor blood sugar q4H with insulin sliding scale 03/22: Discussed with [facility], Dr. Flores, questioning if ongoing seizure activity. Requiring continuous EEG, transfer for further work up. Recommends MRI brain to rule out infectious process (ordered, likely need to defer to accepting hospital as no availability right now), based on weight, change Keppra to 750 mg q.12 hours. Spoke with [facility] transfer [place], 2 [address] available[address] Lawson, accepting at [facility] Status: Acute (2) Elevated lactic acid level: Problem details: -witnessed tonic clonic movements; given fluid bolus, lactate 5.4-2.8-5.5. Will give 2nd bolus Status: Acute (3) Addisonian crisis: Problem details: -unclear why she had seizure; I started her empirically on high dose hydrocortisone while we sort out the seizures. She has presented before in adrenal crisis [place] usually with electrolyte abnl. -monitor blood sugars Status: Acute (4) Primary adrenocortical insufficiency: Problem details: -administered stress dose steroids, hydrocortisone 100 mg IV q8 -hold home dose fludrocortisone 0.3mg qd, hydrocortisone 20mg bid for now -remains obtunded from Ativan; continue NPO and monitoring seizure status Status: Chronic (5) Diabetes: Problem details: -glucose normal in the ED (151), will order q4h accuchecks and SSI. A1C 8.9 -home meds - lantus 6 units daily, aspart 5 units with meals + sliding scale - restart home meds once awake and eating -Patient is quite brittle with her diabetes. She has type 1 diabetes so requires regular insulin dosing but also requires regular p.o. food and fluid. Due to alterations in mental status, variations in oral intake and ostomy output managing her nutrition, blood sugar, insulin has been difficult. Status: Acute (6) Ileostomy in place: Problem details: History of high output from ileostomy. Status: Acute (7) Chronic hyponatremia: Problem details: - Primarily due to adrenal insufficiency. History of high ostomy output. Baseline Na low 130s Status: Acute (8) Dementia: Problem details: - continue with supportive efforts Status: Acute (9) Frailty syndrome in geriatric patient: Problem details: - resides in [facility] nursing [facility] Status: Acute (10) Polypharmacy: Problem details: Multiple unstable medical problems receiving multiple treatments requiring close monitoring Status: Acute (11) Chronic pain: Problem details: Currently on morphine 15mg tid (UDS opiates positive). This has been used for chronic pain in her back from compression fractures as well as generalized pain. It may also have benefits for her high output ostomy. Status: Acute (12) Coronary artery disease: Problem details: - h/o stenting, continue ASA when able Status: Chronic Plan Patient will be transferred to neurology for further workup and management Time Spent With Patient Total time spent: Total time spent caring for the patient today was 75 minutes. This includes time spent for the visit reviewing the chart, time spent during the visit, time spent after the visit and documentation and planning in coordination of care. Subjective Date Seen: 03/22/24 Interval history: Patient is sleeping during rounds this morning. Difficult to wake. Staff report she has slept through vitals, repositioning though other staff have noted her to open her eyes and then close them again when being spoken to. She is well known to this department and has a history of not responding to staff. Unfortunately, complicating this hospitalization is reports of seizures having received Keppra, lorazepam which could be compounding sleepiness this morning. No events reported since admission to the floor. She remains vitally stable, afebrile. Exam Narrative: Exam Narrative: PHYSICAL EXAM General: Sleeping, sonorous, does not wake to voice or touch HEENT: Normocephalic. Report of biting tongue however I cannot examine this. Cardiovascular: RRR. No pitting edema Pulmonary: No dyspnea on room air, sonorous Neurological: Sleeping Extremities: No gross joint deformity or swelling Skin: Warm, dry. Const: Vital Signs, click to edit/add: Vital Signs - 24 hr 03/21/24 20:40 03/21/24 21:03 03/21/24 21:04 Temperature 98.7 F Pulse Rate 108 H 109 H Pulse Rate [Left P ulse Oximeter] Pulse Rate [Pulse Oximeter] 112 H Respiratory Rate 18 Blood Pressure 152/80 H Blood Pressure [Le ft Upper Arm] 154/87 H Blood Pressure [Ri ght Arm] Pulse Oximetry 94 97 89 [facility] 03/21/24 21:15 03/21/24 21:20 03/21/24 21:29 Temperature Pulse Rate 107 H 105 H Pulse Rate [Left P ulse Oximeter] Pulse Rate [Pulse Oximeter] Respiratory Rate Blood Pressure 132/77 Blood Pressure [Le ft Upper Arm] Blood Pressure [Ri ght Arm] Pulse Oximetry 93 93 93 Oxygen Delivery In thod 03/21/24 21:30 03/21/24 21:31 03/21/24 22:00 Temperature Pulse Rate 103 H 103 H 103 H Pulse Rate [Left P ulse Oximeter] Pulse Rate [Pulse Oximeter] Respiratory Rate Blood Pressure 128/72 Blood Pressure [Le ft Upper Arm] Blood Pressure [Ri ght Arm] Pulse Oximetry 93 93 95 [facility] 03/21/24 22:01 03/21/24 22:15 03/21/24 22:30 Temperature Pulse Rate 97 93 92 Pulse Rate [Left P ulse Oximeter] Pulse Rate [Pulse Oximeter] Respiratory Rate Blood Pressure 141/81 H Blood Pressure [Le ft Upper Arm] Blood Pressure [Ri ght Arm] Pulse Oximetry 94 94 94 [facility] 03/21/24 22:32 03/21/24 22:45 03/21/24 23:00 Temperature Pulse Rate 93 91 88 Pulse Rate [Left P ulse Oximeter] Pulse Rate [Pulse Oximeter] Respiratory Rate Blood Pressure 97/57 L Blood Pressure [Le ft Upper Arm] Blood Pressure [Ri ght Arm] Pulse Oximetry 94 95 95 [facility] 03/21/24 23:01 03/22/24 00:26 03/22/24 00:31 Temperature Pulse Rate 89 80 Pulse Rate [Left P ulse Oximeter] Pulse Rate [Pulse Oximeter] Respiratory Rate Blood Pressure 91/58 L Blood Pressure [Le ft Upper Arm] Blood Pressure [Ri ght Arm] Pulse Oximetry 95 96 Oxygen Delivery Me thod 03/22/24 00:31 03/22/24 00:34 03/22/24 00:53 Temperature 98.0 F Pulse Rate Pulse Rate [Left P ulse Oximeter] 92 Pulse Rate [Pulse Oximeter] Respiratory Rate 20 20 20 Blood Pressure Blood Pressure [Le ft Upper Arm] Blood Pressure [Ri ght Arm] 169/98 H Pulse Oximetry 96 99 97 Oxygen Delivery Me thod Room Air Room Air Room Air 03/22/24 03:15 03/22/24 07:41 03/22/24 08:22 Temperature 97.5 F L 96.7 F L Pulse Rate 83 Pulse Rate [Left P ulse Oximeter] 75 80 Pulse Rate [Pulse Oximeter] Respiratory Rate 18 20 Blood Pressure Blood Pressure [Le ft Upper Arm] Blood Pressure [Ri ght Arm] 140/72 H 133/57 L Pulse Oximetry 95 95 Oxygen Delivery Me thod Room Air Room Air Labs Labs: Laboratory Results - last 24 hr 03/21/24 03/21/24 03/21/24 20:50 21:10 21:43 WBC 7.90 RBC 4.30 Hgb 13.2 Hct 41.1 MCV 96 MCH 31 MCHC 32 RDW Coeff of Sharmaine 14.5 Plt Count 209 Neut % (Auto) 68.6 Lymph % (Auto) 22.5 [place] % (Auto) 7.7 Eos % (Auto) 0.5 Baso % (Auto) 0.3 Neut # (Auto) 5.42 Lymph # (Auto) 1.78 [place] # (Auto) 0.60 Eos # (Auto) 0.04 Baso # (Auto) 0.02 Abs Immat Gran (auto) 0.03 Imm/Tot Granulo (auto) 0.4 VBG pH 7.327 VBG pCO2 46 VBG pO2 47.3 H VBG HCO3 24 Sodium 133 L Potassium 4.4 Chloride 102 Carbon Dioxide 23 Anion Gap 8 BUN 25 Creatinine 1.0 Estimated GFR 55 Glucose 151 H Hemoglobin A1c 8.9 H Lactate 5.4 H* Calcium 9.3 Magnesium 2.2 TSH 7.050 H Free T4 0.86 Urine Color Yellow Urine Appearance Clear Urine pH 5.5 Ur Specific [place] 1.020 Urine Protein 1+ A Urine Glucose (UA) Negative Urine Ketones Negative Urine Blood Trace-lysed A Urine Nitrite Negative Urine Bilirubin Negative Urine Urobilinogen 0.2 Ur Leukocyte Esterase Negative Urine RBC 0-2 Urine WBC 5-10 A Ur Squamous Epith Cells Few Urine Bacteria Few A Fine Granular Casts Few A Urine Yeast Many A Lab Acknowledgement Test Added 03/21/24 03/22/24 23:38 00:30 WBC RBC Hgb Hct MCV MCH MCHC RDW Coeff of Sharmaine Plt Count Neut % (Auto) Lymph % (Auto) [place] % (Auto) Eos % (Auto) Baso % (Auto) Neut # (Auto) Lymph # (Auto) [place] # (Auto) Eos # (Auto) Baso # (Auto) Abs Immat Gran (auto) Imm/Tot Granulo (auto) VBG pH VBG pCO2 VBG pO2 VBG HCO3 Sodium Potassium Chloride Carbon Dioxide Anion Gap BUN Creatinine Estimated GFR Glucose Hemoglobin A1c Lactate 2.8 H Calcium Magnesium TSH Free T4 Urine Color Urine Appearance Urine pH Ur Specific [place] Urine Protein Urine Glucose (UA) Urine Ketones Urine Blood Urine Nitrite Urine Bilirubin Urine Urobilinogen Ur Leukocyte Esterase Urine RBC Urine WBC Ur Squamous Epith Cells Urine Bacteria Fine Granular Casts Urine Yeast Lab Acknowledgement Test Added
--- NOTE | 2024-03-22 09:37 | XR_ITS ---
Patient: BELTRAN SOMMERS Facility:?[facility] Patient ID:?[id number] Site Patient ID:?[id number]. Site :?[id number] Study:?XRay-Chest 1V PORTABLE-03/22/2024 10:13:05 AM Ordering Physician:AMOR Final Report: INDICATION: Seizures. COMPARISON: 02/23/2024 TECHNIQUE: 1 view. FINDINGS: The patient is slightly rotated rightward. Medical Devices: None. Lung Volumes: Shallow inspiration. No significant atelectasis. Lungs: Clear lungs. Pleura and Pleural spaces: No significant pleural effusion. No pneumothorax. Mediastinum: Normal cardiomediastinal silhouette. Bony Thorax and Soft Tissues: Expansile lucent lesion of the right posterior 9th rib is again demonstrated. Generally speaking, and the patient this age, osteolytic lesions of the ribs are suspicious for metastatic disease or myeloma. Consider CT for further characterization as suggested in the prior report. IMPRESSION: 1. No radiographic findings on this examination of the chest to explain seizures. 2. Shallow inspiration. 3. Lytic expansile lesion of the right posterior 9th rib demonstrated to better advantage on the recent prior study of 02/23/2024. Neoplastic disease is included in the differential for this finding. As suggested on the prior report, consider CT for further characterization. Dictated by Grant Lynch MD @ 03/22/2024 10:32:47 AM Signed by:?Grant Lynch MD @03/22/2024 10:32:47 AM (Electronic Signature)
[2024-03-22] MEDS: 0.9 % SODIUM CHLORIDE 250 ml IV (10:11)
[2024-03-22 10:28] LABS: Basophils Percent Auto 0.1 % (0.0-3.0); Hematocrit 36.6 % (33.0-51.0); Hemoglobin* 11.9 gm/dL (12.0-16.0); Immature Granulocytes Pct Auto 0.3 %; Lactate* 5.5 mmol/L (0.5-1.9); Lymphocytes Percent Auto 8.3 % (20-44); Mean Corpuscular HGB Conc 33 gm/dL (32-36); Mean Corpuscular Hemoglobin 31 pg (26-34); Mean Corpuscular Volume 96 fL (80-100); Neutrophils Percent Auto 87.3 % (42.0-72.0); Platelet Count* 193 K/uL (140-440); RDW Coefficient of Variation % 14.8 % (11.5-15.5); Red Blood Count 3.82 m/uL (4.00-5.20); White Blood Count* 11.73 K/uL (4.50-11.00)
[2024-03-22 10:36] LABS: Amphetamine Screen Urine Negative (Negative); Barbiturate Screen Urine Negative (Negative); Benzodiazepines Screen Urine Negative (Negative); Cannabinoid Screen Urine Negative (Negative); Cocaine Screen Urine Negative (Negative); Methadone Screen Urine Negative (Negative); Methamphetamines Screen Urine Negative (Negative); Opiate Screen Urine POSITIVE (Negative); Oxycodone Screen Urine Negative (Negative); Phencyclidine Screen Urine Negative (Negative); Tricyclic Antidepressant Urine Negative (Negative)
--- NOTE | 2024-03-22 10:36 | MR_ITS ---
Patient: BELTRAN SOMMERS Facility:?[facility] Patient ID:?[id number] Site Patient ID:?[id number]. Site :?[id number] Study:?MRI-Head WO/W DOTAREM 10ML-03/22/2024 7:06:40 PM Ordering Physician:EDELMIRA CHINCHILLA Final Report: Indication: Seizure activity, possible infectious process Technique: Multiplanar, multisequence MRI of the brain obtained without and with contrast. A total of 10 mL of Dotarem IV contrast was administered. Comparison: CT head 03/21/2024 Findings: Diffuse prominence of the ventricles and cortical sulci, compatible with generalized cerebral volume loss. No acute intracranial hemorrhage or abnormal extra-axial fluid collection, midline shift, hydrocephalus, or herniation. There are focal and small confluent areas of FLAIR hyperintensity throughout the supratentorial white matter and jere, typical of chronic microangiopathy. A small focus of mild FLAIR/DWI hyperintensity is noted at the left pontine tegmentum, with intermediate ADC signal, potentially representing tiny subacute infarct. The postcontrast sequences are markedly degraded by patient motion artifact. Given this limitation, no obvious pathologic intracranial enhancement identified. Solitary punctate focus of susceptibility at the right paramedian cerebellar vermis, suggestive of chronic microhemorrhage. Major intracranial vasculature is unremarkable for technique. Midline structures are within normal limits. Normal bone marrow signal. No paranasal sinus air-fluid level or significant mastoid effusion. Bilateral lens implants. Impression: 1. There is artifact from patient motion, degrading image quality and limiting evaluation. 2. A small focus of mild DWI/FLAIR hyperintensity at the left pontine tegmentum shows intermediate ADC signal, potentially representing a tiny subacute infarct versus artifact. 3. Otherwise, no acute intracranial abnormality identified. Moderate generalized cerebral volume loss and chronic microangiopathy changes. Dictated by Nadege Cesar MD @ 03/22/2024 7:43:53 PM Signed by:?Nadege Cesar MD @03/22/2024 7:43:53 PM (Electronic Signature)
[2024-03-22 10:52] LABS: Albumin* 3.7 g/dL (3.3-5.0); Chloride* 107 mmol/L (96-114); Potassium* 3.5 mmol/L (3.6-5.1); Sodium* 134 mmol/L (135-149)
[2024-03-22 10:54] LABS: Anion Gap 8 mEq/L (7-15); Aspartate Amino Transferase* 73 U/L (12-35); Carbon Dioxide* 19 mmol/L (20-32); Creatinine* 0.8 mg/dL (0.5-1.5); Estimated Glomerular Filt Rate 72 ml/min
[2024-03-22 10:55] LABS: Alanine Aminotransferase* 135 U/L (4-35); Alkaline Phosphatase* 101 U/L (40-150); Blood Urea Nitrogen* 21 mg/dL (7-30); Calcium* 8.1 mg/dL (8.4-10.6); Glucose* 288 mg/dL (60-115)
--- NOTE | 2024-03-22 10:57 | PM.DS1 ---
DS: Providers Provider Date Seen: 03/22/24 Date of admission: 03/21/24 23:15 Primary care physician: Onur Schreiber MD Admitting Clinician: Leigh Ann Reaves MD Consults: 03/21/24 23:24 Consult to Occupational Therapy [CONS] Routine Comment: Reason(s) for OT Consult:: Evaluate and Treat Any Restrictions?:: No Restrictions Consult to Physical Therapy [CONS] Routine Comment: Reason(s) for PT Consult:: Evaluate and Treat Any Restrictions?:: No Restrictions Consult to Sheet Metal Worker [CONS] Routine Comment: Reason for Consult:: Social Service Consult Attending Physician on discharge[facility] Mo[facility]: 03/22/24 DS: Diagnosis Discharge Diagnosis (1) Seizure: Status: Acute Problem details: 2 witnessed tonic clonic seizures evening of 03/21, 1 of those witnessed in the ED. 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 cause of seizure is undetermined, limited documentation on this. Blood sugar, electrolytes, hyperthyroidism ruled out. Not hypoxic. Not uremic. No obvious head bleed or CVA. -alert between seizures - this morning, 03/22, remains quite obtunded, protecting airway -b/c of 2nd seizure we loaded with keppra (1500mg) and will repeat [id number] - second dose given 03/22 at 1000am -UC pending, BC pending, MRSA pending. UDS ordered. CXR ordered -monitoring clinical progress, monitor blood sugar q4H with insulin sliding scale 03/22: Discussed with [facility], Dr. Flores, questioning if ongoing seizure activity. Requiring continuous EEG, transfer for further work up. Recommends MRI brain to rule out infectious process (ordered, likely need to defer to accepting hospital as no availability right now), based on weight, change Keppra to 750 mg q.12 hours. Spoke with [facility] [place], 2 beds available. Discuss[address] with Dr. Lawson, accepting at [facility] (2) Elevated lactic acid level: Status: Acute Problem details: -witnessed tonic clonic movements; given fluid bolus, lactate 5.4-2.8-5.5. Will give 2nd bolus (3) Addisonian crisis: Status: Acute Problem details: -unclear why she had seizure; I started her empirically on high dose hydrocortisone while we sort out the seizures. She has presented before in adrenal crisis albiet usually with electrolyte abnl. -monitor blood sugars (4) Primary adrenocortical insufficiency: Status: Chronic Problem details: -administered stress dose steroids, hydrocortisone 100 mg IV q8 -hold home dose fludrocortisone 0.3mg qd, hydrocortisone 20mg bid for now -remains obtunded from Ativan; continue NPO and monitoring seizure status (5) Diabetes: Status: Acute Problem details: -glucose normal in the ED (151), will order q4h accuchecks and SSI. A1C 8.9 -home meds - lantus 6 units daily, aspart 5 units with meals + sliding scale - restart home meds once awake and eating -Patient is quite brittle with her diabetes. She has type 1 diabetes so requires regular insulin dosing but also requires regular p.o. food and fluid. Due to alterations in mental status, variations in oral intake and ostomy output managing her nutrition, blood sugar, insulin has been difficult. (6) Ileostomy in place: Status: Acute Problem details: History of high output from ileostomy. (7) Chronic hyponatremia: Status: Acute Problem details: - Primarily due to adrenal insufficiency. History of high ostomy output. Baseline Na low 130s (8) Dementia: Status: Acute Problem details: - continue with supportive efforts (9) Frailty syndrome in geriatric patient: Status: Acute Problem details: - [facility] in [facility] (10) Polypharmacy: Status: Acute Problem details: Multiple unstable medical problems receiving multiple treatments requiring close monitoring (11) Chronic pain: Status: Acute Problem details: Currently on morphine 15mg tid (UDS opiates positive). This has been used for chronic pain in her back from compression fractures as well as generalized pain. It may also have benefits for her high output ostomy. (12) Coronary artery disease: Status: Chronic Problem details: - h/o stenting, continue ASA when able (13) Hyponatremia: Status: Acute Problem details: Sodium 134, baseline 132-136 DS: Summary Hospital Course Hospital Course: [age] year old female past medical history significant for poorly managed diabetes mellitus, primary adrenocortical insufficiency, chronic hyponatremia, dementia, chronic pain, CAD was admitted to the medical floor for further management acute seizure activity. Course of care and details as noted above. Discussed with [facility], Dr. Flores, recommended transfer for further evaluation, continuous EEG. Discussed with Dr. Lawson, accepting at [facility]. Remainder of chronic medical comorbidities were monitored and managed with home medications. Status at Discharge Overall status at discharge: patient is not back to baseline Time Spent with Patient Time attestation: Total time spent providing and/or coordinating discharge services: Time spent: Greater than 30 minutes Exam Narrative: Exam Narrative: PHYSICAL EXAM General: Obtunded, airway protected Cardiovascular: RRR Pulmonary: No dyspnea on room air, saturations >95% Neurological: Obtunded Skin: Warm, dry. Const: Vital Signs, click to edit/add: Vital Signs - 24 hr 03/21/24 20:40 03/21/24 21:03 03/21/24 21:04 Temperature 98.7 F Pulse Rate 108 H 109 H Pulse Rate [Left P ulse Oximeter] Pulse Rate [Pulse Oximeter] 112 H Respiratory Rate 18 Blood Pressure 152/80 H Blood Pressure [Le ft Upper Arm] 154/87 H Blood Pressure [Ri ght Arm] Pulse Oximetry 94 97 89 Oxygen Delivery Me thod Room Air 03/21/24 21:15 03/21/24 21:20 03/21/24 21:29 Temperature Pulse Rate 107 H 105 H Pulse Rate [Left P ulse Oximeter] Pulse Rate [Pulse Oximeter] Respiratory Rate Blood Pressure 132/77 Blood Pressure [Le ft Upper Arm] Blood Pressure [Ri ght Arm] Pulse Oximetry 93 93 93 Oxygen Delivery Me thod 03/21/24 21:30 03/21/24 21:31 03/21/24 22:00 Temperature Pulse Rate 103 H 103 H 103 H Pulse Rate [Left P ulse Oximeter] Pulse Rate [Pulse Oximeter] Respiratory Rate Blood Pressure 128/72 Blood Pressure [Le ft Upper Arm] Blood Pressure [Ri ght Arm] Pulse Oximetry 93 93 95 Oxygen Delivery Me thod 03/21/24 22:01 03/21/24 22:15 03/21/24 22:30 Temperature Pulse Rate 97 93 92 Pulse Rate [Left P ulse Oximeter] Pulse Rate [Pulse Oximeter] Respiratory Rate Blood Pressure 141/81 H Blood Pressure [Le ft Upper Arm] Blood Pressure [Ri ght Arm] Pulse Oximetry 94 94 94 Oxygen Delivery Me thod 03/21/24 22:32 03/21/24 22:45 03/21/24 23:00 Temperature Pulse Rate 93 91 88 Pulse Rate [Left P ulse Oximeter] Pulse Rate [Pulse Oximeter] Respiratory Rate Blood Pressure 97/57 L Blood Pressure [Le ft Upper Arm] Blood Pressure [Ri ght Arm] Pulse Oximetry 94 95 95 Oxygen Delivery Me thod 03/21/24 23:01 03/22/24 00:26 03/22/24 00:31 Temperature Pulse Rate 89 80 Pulse Rate [Left P ulse Oximeter] Pulse Rate [Pulse Oximeter] Respiratory Rate Blood Pressure 91/58 L Blood Pressure [Le ft Upper Arm] Blood Pressure [Ri ght Arm] Pulse Oximetry 95 96 Oxygen Delivery Me thod 03/22/24 00:31 03/22/24 00:34 03/22/24 00:53 Temperature 98.0 F Pulse Rate Pulse Rate [Left P ulse Oximeter] 92 Pulse Rate [Pulse Oximeter] Respiratory Rate 20 20 20 Blood Pressure Blood Pressure [Le ft Upper Arm] Blood Pressure [Ri ght Arm] 169/98 H Pulse Oximetry [address] [facility] Room [facility] Room Air 03/22/24 03:15 03/22/24 07:41 03/22/24 08:22 Temperature 97.5 F L 96.7 F L Pulse Rate 83 Pulse Rate [Left P ulse Oximeter] 75 80 Pulse Rate [Pulse Oximeter] Respiratory Rate 18 20 Blood Pressure Blood Pressure [Le ft Upper Arm] Blood Pressure [Ri ght Arm] 140/72 H 133/57 L Pulse Oximetry 95 95 Oxygen Delivery Nc thod Room Air Room Air DS: Data Data Completed and Pending Completed studies during hospitalization: Procedures Drainage of Stomach with Drainage Device, Via Natural or Artificial Opening (05/02/22) Insertion of Infusion Device into Left Internal Jugular Vein, Percutaneous Approach (05/02/22) Introduction of Other Therapeutic Substance into Respiratory Tract, Via Natural or Artificial Opening (02/23/24) Pending studies at discharge: CXR ordered, MRI ordered, BC, UC, MRSA pending Labs on day of discharge: Labs from last 24 hours 03/22/24 03/22/24 03/22/24 10:15 09:35 00:30 WBC Pending RBC Pending Hgb Pending Hct Pending MCV Pending MCH Pending MCHC Pending RDW Coeff of Sharmaine Plt Count Pending Neut % (Auto) Pending Lymph % (Auto) Pending [place] % (Auto) Pending Eos % (Auto) Pending Baso % (Auto) Pending Neut # (Auto) Pending Lymph # (Auto) Pending [place] # (Auto) Pending Eos # (Auto) Pending Baso # (Auto) Pending Abs Immat Gran (auto) Imm/Tot Granulo (auto) VBG pH VBG pCO2 VBG pO2 VBG HCO3 Sodium Pending Potassium Pending Chloride Pending Carbon Dioxide Pending Anion Gap Pending BUN Pending Creatinine Pending Estimated GFR Pending Glucose Pending Hemoglobin A1c Lactate 5.5 H* 2.8 H Calcium Pending Magnesium Total Bilirubin Pending AST Pending ALT Pending Alkaline Phosphatase Pending Total Protein Pending Albumin Pending TSH Free T4 Urine Color Urine Appearance Urine pH Ur Specific [place] Urine Protein Urine Glucose (UA) Urine Ketones Urine Blood Urine Nitrite Urine Bilirubin Urine Urobilinogen Ur Leukocyte Esterase Urine RBC Urine WBC Ur Squamous Epith Cells Urine Bacteria Fine Granular Casts Urine Yeast Urine Opiates Screen Ur Oxycodone Screen Urine Methadone Screen Ur Barbiturates Screen U Tricyclic Antidepress Ur Phencyclidine Scrn Ur Amphetamines Screen U Methamphetamines Scrn U Benzodiazepines Scrn Urine Cocaine Screen U Marijuana (THC) Screen Ur Drug Screen Comment Lab Acknowledgement Test Added 03/21/24 03/21/24 03/21/24 23:38 21:43 21:10 WBC RBC Hgb Hct MCV MCH MCHC RDW Coeff of Sharmaine Plt Count Neut % (Auto) Lymph % (Auto) [place] % (Auto) Eos % (Auto) Baso % (Auto) Neut # (Auto) Lymph # (Auto) [place] # (Auto) Eos # (Auto) Baso # (Auto) Abs Immat Gran (auto) Imm/Tot Granulo (auto) VBG pH VBG pCO2 VBG pO2 VBG HCO3 Sodium Potassium Chloride Carbon Dioxide Anion Gap BUN Creatinine Estimated GFR Glucose Hemoglobin A1c Lactate Calcium Magnesium Total Bilirubin AST ALT Alkaline Phosphatase Total Protein Albumin TSH Free T4 Urine Color Yellow Urine Appearance Clear Urine pH 5.5 Ur Specific [place] 1.020 Urine Protein 1+ A Urine Glucose (UA) Negative Urine Ketones Negative Urine Blood Trace-lysed A Urine Nitrite Negative Urine Bilirubin Negative Urine Urobilinogen 0.2 Ur Leukocyte Esterase Negative Urine RBC 0-2 Urine WBC 5-10 A Ur Squamous Epith Cells Few Urine Bacteria Few A Fine Granular Casts Few A Urine Yeast Many A Urine Opiates Screen POSITIVE A Ur Oxycodone Screen Negative Urine Methadone Screen Negative Ur Barbiturates Screen Negative U Tricyclic Antidepress Negative Ur Phencyclidine Scrn Negative Ur Amphetamines Screen Negative U Methamphetamines Scrn Negative U Benzodiazepines Scrn Negative Urine Cocaine Screen Negative U Marijuana (THC) Screen Negative Ur Drug Screen Comment See Note Lab Acknowledgement Test Added Test Added 03/21/24 20:50 WBC 7.90 RBC 4.30 Hgb 13.2 Hct 41.1 MCV 96 MCH 31 MCHC 32 RDW Coeff of Sharmaine 14.5 Plt Count 209 Neut % (Auto) 68.6 Lymph % (Auto) 22.5 [place] % (Auto) 7.7 Eos % (Auto) 0.5 Baso % (Auto) 0.3 Neut # (Auto) 5.42 Lymph # (Auto) 1.78 [place] # (Auto) 0.60 Eos # (Auto) 0.04 Baso # (Auto) 0.02 Abs Immat Gran (auto) 0.03 Imm/Tot Granulo (auto) 0.4 VBG pH 7.327 VBG pCO2 46 VBG pO2 47.3 H VBG HCO3 24 Sodium 133 L Potassium 4.4 Chloride 102 Carbon Dioxide 23 Anion Gap 8 BUN 25 Creatinine 1.0 Estimated GFR 55 Glucose 151 H Hemoglobin A1c 8.9 H Lactate 5.4 H* Calcium 9.3 Magnesium 2.2 Total Bilirubin AST ALT Alkaline Phosphatase Total Protein Albumin TSH 7.050 H Free T4 0.86 Urine Color Urine Appearance Urine pH Ur Specific [place] Urine Protein Urine Glucose (UA) Urine Ketones Urine Blood Urine Nitrite Urine Bilirubin Urine Urobilinogen Ur Leukocyte Esterase Urine RBC Urine WBC Ur Squamous Epith Cells Urine Bacteria Fine Granular Casts Urine Yeast Urine Opiates Screen Ur Oxycodone Screen Urine Methadone Screen Ur Barbiturates Screen U Tricyclic Antidepress Ur Phencyclidine Scrn Ur Amphetamines Screen U Methamphetamines Scrn U Benzodiazepines Scrn Urine Cocaine Screen U Marijuana (THC) Screen Ur Drug Screen Comment Lab Acknowledgement Preliminary micro results at discharge 03/21/24 21:10 Urine Culture - Preliminary Urine,Clean Catch Culture in Progress Imaging CT scan - head: Attestation: I have reviewed the pertinent imaging results. Radiologist's impression: Facility:?[facility] Patient ID:?[id number] Site Patient ID:?[id number]. Site :?[id number] Study:?CT-Head W/O-03/21/2024 9:53:30 PM Ordering Physician:FE Final Report: Indication: Seizure Technique: CT Head without IV contrast Comparison: None Findings: Brain Parenchyma: Mild global cortical involutional changes. No acute infarct, acute intracranial hemorrhage, mass effect, or midline shift. Periventricular and supraventricular white matter hypodensity, suggestive of chronic microvascular ischemic changes. Ventricles: No hydrocephalus. Mild ventricular enlargement, commensurate with the degree of cortical involutional changes and sulcal prominence. Extra-axial Spaces: No abnormal fluid collection. Paranasal sinuses: No significant mucosal thickening. Orbits: Unremarkable. Mastoid Sinuses: Unremarkable. Cranium: No acute fracture. Soft tissues: Unremarkable. Impression: No evidence of an acute intracranial process. Discharge Plan Discharge Disposition: [facility] Discharge Location: [facility] Date of Admission: 03/21/24 23:15 Attending Provider on Discharge: Lillie Stout Primary Care Provider: Onur Schreiber Condition: Stable Discharge Orders: Transfer of Care to Other Hospital (ORDER); Ordered 03/22/24 Ordered By: Lillie Stout Oxygen: No Services not available here: Neurology
--- NOTE | 2024-03-22 11:00 | REH.OT ---
OT: Order received, chart reviewed, attempted eval 2x and patient not awakening to voice, cool washcloth, tactile stim. When returned, nsg reports patient transferring to [place] and OT eval deferred.
[2024-03-22 11:14] LABS: Slide Review Reflex No
[2024-03-22] MEDS: 0.9 % SODIUM CHLORIDE 1000 ml 1,000 ML IV (12:03)
[2024-03-22] MEDS: LEVETIRACETAM IVPB (19:47)
[2024-03-22] MEDS: SODIUM CHLORIDE 0.9% IVPB (19:47)
--- NOTE | 2024-03-22 20:47 | PC.NURSE ---
2045 Pt left VIA EMS to [facility] updated, all belongings sent with pt.
--- NOTE | 2024-03-22 21:07 | PC.NURSE ---
End of shift [id number] - Pt appeared fatigued and sedate during shift. Unable to rouse with name and light shaking. Eyes observed to flutter open periodically, but pt did not appear to respond to verbal or physical stimuli. Turn and reposition Q2h as pt tolerated. Pt tolerated RA and NPO diet during shift.
== END 2024-03-22 20:46 | disposition short-term general hospital (02) ==
LOC: ED 22:40 → MEDSURG 23:16
PROVIDERS: Physician Assistant; Admitting Provider Family Medicine; Emergency Provider Family Medicine; PCP Family Medicine; Visit Provider Family Medicine
DX: R56.9 Unspecified convulsions (principal); R74.02 Elevation of levels of lactic acid dehydrogenase [LDH]; R79.89 Other specified abnormal findings of blood chemistry; E27.2 Addisonian crisis; E27.1 Primary adrenocortical insufficiency; G93.89 Other specified disorders of brain; E87.1 Hypo-osmolality and hyponatremia; F03.90 Unspecified dementia, unspecified severity, without behavioral disturbance, psychotic disturbance, mood disturbance, and anxiety; I12.9 Hypertensive chronic kidney disease with stage 1 through stage 4 chronic kidney disease, or unspecified chronic kidney disease; E11.22 Type 2 diabetes mellitus with diabetic chronic kidney disease; N18.31 Chronic kidney disease, stage 3a; I25.10 Atherosclerotic heart disease of native coronary artery without angina pectoris; E78.5 Hyperlipidemia, unspecified; M54.9 Dorsalgia, unspecified; G89.29 Other chronic pain; K21.9 Gastro-esophageal reflux disease without esophagitis; M81.0 Age-related osteoporosis without current pathological fracture; F41.9 Anxiety disorder, unspecified; Z79.899 Other long term (current) drug therapy; Q76.6 Other congenital malformations of ribs; Z79.4 Long term (current) use of insulin; Z98.62 Peripheral vascular angioplasty status; Z93.2 Ileostomy status; Z90.49 Acquired absence of other specified parts of digestive tract; Z90.89 Acquired absence of other organs; Z78.9 Other specified health status; Z66 Do not resuscitate
CPT/HCPCS: 36415; 70450; 70553; 71045; 80048; 80053; 80306; 81001; 82803; 82962; 83036; 83605; 83735; 84439; 84443; 85025; 87040; 87081; 87086; 93005; 94761; 96361; 96365; 96366; 96367; 96368; 96372; 96375; 99284; 99285; 99291; G0378; A9575; C9113; J1720; J1953; J2060; J7030; J7042; J7050

== ENCOUNTER 2024-03-22 20:33 | Outpatient (CLI) | payer BC, SELFPAY ==
--- OUTSIDE RECORDS SUMMARY | 2024-03-25 13:53 | XMS_ITS | Clinical Summary ---
Author Organization [facility] Address [address] [place] [address] Care Team Providers Care Toxics Program Officer Name Role Phone Unavailable Primary Care Provider Unavailabl e Source Comments Patient records contain information from all sites at [facility]. For routine questions regarding patient records, call [phone] during business hours, M-F 8:00 AM - 5:00 PM Central Time. Record requests for emergency care only can be directed to [phone] at any time.[facility] Allergies Active Allergy Reactions Criticality Noted [...] Order 1 Unspecified 11 2 Active multivitamin-iron -TN-Lm-rmurdbhf (THERAPEUTIC-M) 400 mcg (folic acid) per tablet [...] Disease 05/02/2022 Atherosclerotic Heart Diseas e Of [place] Coronary Artery Without Angina Pectoris 05/02/2022 Hyperlipidemia [...] METABOLIC PANEL, S/P Routine 01/06/2024 7:36 AM ANIMAL CONTROL OFFICER from Last 3 Months or Most Recently Relevant to Health Maintenance Advance Directives For more information, please contact: [phone] Documents on File Type Date Recorded Patient Airport Skilled Maintenance Supervisor Expl anation Advance Directives 03/10/2023 10:42 AM [...]
--- OUTSIDE RECORDS SUMMARY | 2024-03-25 13:53 | XMS_ITS | Referral Summary ---
Author Organization [facility] Address [address] [place] [address] Care Team Providers Care Asphalt Dauber Name Role Phone Unavailable Primary Care Provider Unavailabl e Source Comments Patient records contain information from all sites at [facility]. For routine questions regarding patient records, call [phone] during business hours, M-F 8:00 AM - 5:00 PM Central Time. Record requests for emergency care only can be directed to [phone] at any time.[facility] Allergies Active Allergy Reactions Criticality [...] Order 1 Unspecified 11 2 Active multivitamin-iron -AG-Im-gyldfjsp (THERAPEUTIC-M) 400 mcg (folic acid) per tablet [...] Disease 05/02/2022 Atherosclerotic Heart Diseas e Of [place] Coronary Artery Without Angina Pectoris 05/02/2022 Hyperlipidemia [...] METABOLIC PANEL, S/P Routine 01/06/2024 7:36 AM HOUSEKEEPER/LAUNDRY ASSISTANT from Last 3 Months or Most Recently Relevant to Health Maintenance Advance Directives For more information, please contact: [phone] Documents on File Type Date Recorded Patient Customer Marketing Assistant Expl anation Advance Directives 03/10/2023 10:42 AM [...]
--- OUTSIDE RECORDS SUMMARY | 2024-03-25 13:53 | XMS_ITS ---
Author Organization [facility] Address [address] [place] [address] Care Team Providers Care Comber Fixer Name Role Phone Unavailable Unavailable Unavailable Surgery Details Not on file Complications Check Surgery Details section. Procedure Estimated Blood Loss Check Surgery Details section. Procedure Findings Check Surgery Details section. Procedure Specimens Taken Check Surgery Details section.
--- OUTSIDE RECORDS SUMMARY | 2024-03-25 13:54 | XMS_ITS | Clinical Summary ---
Author Organization [facility] Address [place], [place] [address] Care Team Providers Care Equities Analyst Name Role Phone Miladis Long Lucas RN Unavailable Perla Corrigan RN Unavailable [phone] Onur Schreiber MD Primary Care Provider Vivian Caruso MD Unavailable [phone] Allergies Active Allergy Reactions Criticality Noted Date [...] (NITROSTAT) 0.4 mg sublingual tabletIndications: CAD in [place] artery Place 1 tablet under the tongue [...] enteric coated tabletIndications: Coronary artery disease involving [place] coronary artery of [place] heart with unstable angina pectoris (HC) TAKE ONE TABLET DAILY WITH A MEAL AT 8PM 90 tablet 2 10/02/20 20 Suspended Additional Information Patient taking differently: 81 mgOralDAILY EVENING, Informant: [facility], Reported on 08/31/2023 coenzyme q10 100 mg capIndications:Ath erosclerosis of [place] coronary artery of [place] heart without angina pectoris Take 1 capsule by mouth once daily. Take 1 capsule by mouth daily at 8am 90 capsule 3 11/10/19 21 024 Discontinued( Reorder (E-cancel not sent)) cholecalciferol, Vitamin D3, 2,000 unit tabletIndications: Compression fracture of L1 lumbar vertebra, sequela TAKE TWO TABLETS DAILY AT 8PM 180 tablet 3 11/30/19 Suspended Additional Information Patient taking differently: 4,000 unitOralDAILY EVENING, Informant: [facility], Reported on 08/31/2023 levothyroxine (SYNTHROID) 75 mcg tabletIndications: Acquired hypothyroidism TAKE ONE TABLET DAILY BEFORE BREAKFAST AT 8AM 90 tablet 11/30/19 21 Suspended Additional Information Patient taking differently: 75 mcgOralBEFORE BREAKFAST, Informant: [facility], Reported on 08/31/2023 estradioL (ESTRACE) [...] 25 mg tabletIndications: Coronary artery disease involving [place] coronary artery of [place] heart with unstable angina pectoris (HC) Take 0.5 Tablets (12.5 mg) by mouth two times daily. 0 09/03/20 23 024 Discontinued( Pharmacist change per medication history (E-cancel not sent)) fludrocortisone (FLORINEF) 0.1 mg tabletIndications: Adrenal insufficiency (Deltona's disease) (HC) Take 3 Tablets (0.3 mg) [...] up to donate her body to the [facility]. Call [phone] right after to donate. Essential hypertension 02/19/2017 Type 1 diabetes mellitus with complication 02/19 Overview: She developed Diabetes in 1997. She was diagnosed with Type [address] Rodriguez in 07/2013 per Becca Hypothyroidism 11/20/2016 Chronic pain syndrome 08/14/2016 Atherosclerosis of [place] co ronary artery of [place] heart without angina pectoris 04/24/2016 Overview: Dr. eZe of Cardiology informed her in 03/2017 that [...] & L3 lumbar vertebra 05/1406/19/2012 Adrenal insufficiency (Deltona's disease) 2011 Renal tubular acidosis, type 4 [...] 9:44 PM CDT - Present Hospital Encounter [facility] [address] [place] [address] [facility], MD Maryanne Reese, MD Linnea Greene Ashfaq, MD 03/16/2024 Telephone [facility] [address] [place] [address] Vivian Newman MD Medication Management 03/15/2024 Lab Requisition [facility] [phone] Linda Cuevas NP 03/08/2024 Telephone [facility] [address] [place] [address] Vivian Newman MD Medication Management (Questions) 03/01/2024 Lab Requisition [facility] [phone] Onur Schreiber MD 02/27/2024 Telephone [facility] [address] [place] [address] Vivian Newman MD Medication Management (predniSONE 5 mg/5 mL solution) 02/20/2024 Lab Requisition [facility] [phone] Onur Schreiber MD 02/19/2024 Telephone [facility] [address] [place] [address] Vivian Newman MD Medication Management (predniSONE 5 mg/5 mL solution ) 02/09/2024 Lab Requisition [facility] [phone] Onur Schreiber MD 02/09/2024 Telephone [facility] [address] [place] [address] Vivian Newman MD Results 01/28/2024 Telephone [facility] [address] [place] [address] Vivian Newman MD Diabetes (Blood Sugar Log, Lab Results, and MAR) 01/26/2024 Lab Requisition [facility] [phone] Clarissa Grimes, CLINICAL PRACTITIONER 01/19/2024 Telephone [facility] [address] [place] [phone] Vivian Newman MD Medication Management 01/19/2024 Telephone [facility] [address] [place] [phone] Vivian Newman MD Diabetes 01/15/2024 Orders Only [facility] Scanner 1 scan: (1-Ord) [facility], MULTIPLE LAB RESULTS, 01/15/2024 01/15/2024 Orders Only [facility] Scanner 1 scan: (1-Ord) [place], MULTIPLE LABS, 01/15/2024 01/15/2024 Telephone [facility] [address] [place] [phone] Vivian Newman MD Results 01/14/2024 2:00 PM CDT Phone Office Visit [facility] [address] [place] [phone] Vivian Newman MD Phone Visit; Follow Up 01/14/2024 Lab Requisition [facility] [phone] Onur Schreiber MD 01/06/2024 Telephone [facility] [address] [place] [phone] Vivian Newman MD Results 01/05/2024 Lab Requisition [facility] [phone] Clarissa Grimes, HIEN 12/29/2023 Lab Requisition [facility] [phone] Clarissa Grimes, CLINICAL PRACTITIONER from Last 3 Months Immunizations Name Administration [...] Disease Father heart attack d ied of [place] at 62 Other Maternal Grandmother at 99.5 [...] CDT Temperature 36.5 ??C (97.7 ??F) 03/25/2024 12:00 AM C DT Respiratory Rate 18 03/25/2024 8:24 AM CDT Oxygen Saturation 94% 03/25/2024 8:24 AM CDT Inhaled Oxygen Concentration - - Weight 49.9 kg (110 lb) 03/25/2024 10:57 AM CDT Height 157.5 cm (5' 2) 03/25/2024 10:57 AM CDT Body Mass Index 20.12 03/25/2024 10:57 AM CDT Plan of Treatment Upcoming Encounters Date Type Department Care Team (Late st Contact Info) Description 04/01/2024 3:00 PM CDT Office Visit [facility] [address] [place] [phone] Vivian Newman MD [address] [place] [phone] Health Maintenance Due Date Last Done Comments [...] Associated Diagnosis Comments GLUCOSE METER Timed 03/25/2024 11:41 AM CDT POTASSIUM Early AM 03/25/2024 10:54 AM CDT GLUCOSE METER Timed 03/25/2024 6:46 AM CDT [...] BASIC METABOLIC PANEL Routine 01/06/2024 7:36 AM MATERIAL SPECIALIST Primary adrenocortical insufficiency (HC) BASIC METABOLIC PANEL Routine 12/30/2023 7:39 AM MATERIAL SPECIALIST Hypo-osmolality and hyponatremia from Last 3 Months Results * (ABNORMAL) GLUCOSE METER (03/25/2024 11:41 AM CDT) Only the most recent of10 resultswithin the time period is included. GLUCOSE METER 132(H) 65 - 100 mg/dL 03/25/2024 11:47 AM CDT [facility] Blood BLOOD SPECIMEN / Unknown 03/25/2024 11:41 AM CDT 03/25/2024 11:47 AM CDT Andrae Yarbrough MD CHEMISTRY Performing Organization Address City/[facility]/ZIP Co de Phone Number [facility] [address] [place] [address], * POTASSIUM (03/25/2024 10:54 AM CDT) POTASSIUM 4.5 3.5 - 5.1 mmol/L 03/25/2024 11:55 AM CDT [facility] Blood BLOOD SPECIMEN / Unknown Capillary / Unknown 03/25/2024 10:54 AM CDT 03/25/2024 11:10 AM CDT Claudia Cardenas RN CHEMISTRY Performing Organization Address City/[facility]/ZIP Co de Phone Number [facility] [address] [place] [address], * SCAN CORRESP-LABORATORY RESULTS (03/24/2024 12:28 PM [...] - 145 mmol/L 03/24/2024 8:47 AM CDT [facility] POTASSIUM 3.2(L) 3.5 - 5.1 mmol/L 03/24/2024 8:47 AM CDT [facility] CHLORIDE 107 98 - 107 mmol/L 03/24/2024 8:47 AM T [facility] CO2,TOTAL 22 22 - 29 mmol/L 03/24/2024 8:47 AM CDT [facility] ANION GAP 9 5 - 18 03/24/2024 8:47 AM CDT [facility] GLUCOSE 96 70 - 99 mg/dL 03/24/2024 8:47 AM T [facility] CALCIUM 8.3(L) 8.8 - 10.2 mg/dL 03/24/2024 8:47 AM CDT [facility] BUN 15 8 - 23 mg/dL 03/24/2024 8:47 AM T [facility] CREATININE 0.96(H) 0.50 - 0.90 mg/dL 03/24/2024 8:47 AM CDT [facility] BUN/CREAT RATIO 16 10 - 20 8:47 AM T [facility] eGFR 58(L) >90 mL/min/1.7 3m2 03/24/2024 8:47 AM CDT [facility] Comment:As of 2022, eG FR [...] 8:12 AM CDT Óscar Madden MD CHEMISTRY [facility] [address] [place] [address], * Continuos video EEG (veeg) monitoring (03/23/2024 9:43 AM CDT) Narrative Lanny Abraham MBBS - 03/23/2024 9:43 AM CDT Lanny Abraham MBBS ? 03/23/2024 ??9:48 AM [facility] correction monitoring/ video EEG report Name: Shira Stauffer Test Number: ??See below Test date: 03/23/24 ?? : 1935 Referring Service: ??@SERVDEPT@ Age: 88 y.o. Referring Physician: [facility]oly Oden [facility] [place] Procedure: videoEEG/ LTM Interpreting Physician: Lanny Abraham [...] - (Study date: 03/23/2024,Study duration:6h 30m, Study# [id number]) Indication: Unchanged, as detailed above. Procedural details: [...] the recording electrodes. Lanny Abraham MD, FAAN, FAHUMA Continuous video EEG study completed 03/23/2024, with a total recording time of (6Hours: 30 Minutes) Rajan Tracey DO NEUROLOGY ORD * SCAN-CARDIAC STRIP (03/23/2024 12:52 AM CDT) Scanner OTHER * LACTATE VENOUS (03/22/2024 11:09 PM CDT) Pathologist [facility] LACTATE,VENOUS 1.3 0.5 - 2.0 mmol/L 03/23/2024 12:27 AM CDT [facility] Blood BLOOD SPECIMEN / Unknown Venipuncture / Unknown 03/22/2024 11:09 PM CDT 03/22/2024 11:35 PM CDT Rajan Tracey DO CHEMISTRY [facility] [address] [place] [address], * Phosphorus (03/22/2024 11:09 PM CDT) [facility] PHOSPHORUS 3.1 2.5 - 4.5 mg/dL 03/23/2024 3:01 AM CDT [facility] Blood BLOOD SPECIMEN / Unknown Venipuncture / Unknown 03/22/2024 11:09 PM CDT 03/22/2024 11:34 PM CDT Rajan Tracey DO CHEMISTRY Performing Organization Address [facility] Co de Phone Number [facility] [address] [address], [place] * Ammonia TODAY (03/22/2024 11:09 PM CDT) AMMONIA 25 16 - 60 umol/L 03/23/2024 12:27 AM CDT [facility] Blood BLOOD SPECIMEN / Unknown Venipuncture / Unknown 03/22/2024 11:09 PM CDT 03/22/2024 11:28 PM CDT Narrative [facility] - 03/23/2024 12:27 AM CDT 1. ??Sulfasalazine and its metabolite Sulfapyridine at therapeutic concentrations may lead to falsely low results. 2. ??Temozolomide and its metabolite MTIC may lead to falsely elevated results, and its metabolite AIC may lead to falsely low results. Rajan Rollinsluis fernando WELLS CHEMISTRY Performing Organization Address [facility] de Phone Number [facility] [address] [address], [place] * SCAN-LABORATORY REPORT (01/15/2024 12:00 AM CDT) Only the most recent of2 resultswithin the time period is included. Scanner OTHER from Last 3 Months Advance Directives Documents on File Type Date Recorded Patient Core Analyst Expl anatko POLST 01/05/2018 11:42 AM AH JORGE ALBERTO ELD, 01/02/18 Healthcare Directive 06/02/2017 9:37 AM AN ATOMY BEQUEST, [facility] [place] 05/28/2017 POLST 07/12/2014 2:25 PM AH KYLE BELLO, 07/12/2014 POLST 08/19/2012 3:55 PM POLST, AM C MARCELLUS, 08/11/12 Healthcare Directive 04/30/2012 3:38 PM HO ME DNR REQUEST FORM, [facility], 04/16/12 * DNR (Latest Code Status [...] Code Status Discussion: Not Discussed Care Teams Equities Analyst Relationship Specialty Start Date End Date Onur Schreiber MD [address] [place] [address] PCP - General Family Practice 04/17/22 Miladis Long, RN [address] [address] Metal Sprayer Protective Coating - [facility] Registered Nurse 08/27/21 Perla Corrigan, RN 3433 [facility] [address] [place] [address] Metal Sprayer Protective Coating - [facility] Registered Nurse 08/27/21 Vivian Newman MD 7600 [facility] [address] [place] [address] [facility] 03/03/24
== END 2024-03-22 20:34 | disposition home or self-care (01) ==
LOC: AMB 03-25 13:50
PROVIDERS: PCP Family Medicine; Visit Provider Emergency Medicine
DX: G40.909 Epilepsy, unspecified, not intractable, without status epilepticus (principal); R41.82 Altered mental status, unspecified
CPT/HCPCS: A0425; A0427

== ENCOUNTER 2024-04-01 10:33 | Outpatient (REF) | payer BC, SELFPAY ==
--- OUTSIDE RECORDS SUMMARY | 2024-04-01 10:36 | XMS_ITS | Clinical Summary ---
Author Organization [facility] Address [place], [place] [address] Care Team Providers Care Preschool Director Name Role Phone Miladis Long Lucas RN Unavailable Perla Corrigan RN Unavailable [phone] Onur Schreiber MD Primary Care Provider Vivian Caruso MD Unavailable [phone] Allergies Active Allergy Reactions Criticality Noted Date [...] Dispensed Refills Start Date End Date Status ASSURE MARTI 28 gauge miscIndications:Ty pe 1 diabetes mellitus with hypoglycemia and without coma (HC) USE THREE TIMES A DAY DIRECTED 300 Each 2 12/04/19 19 Active nitroglycerin (NITROSTAT) 0.4 mg sublingual tabletIndications: CAD in chenega artery Place 1 tablet under the tongue every 5 minutes if needed for Chest Pain. 25 tablet 2 12/03/19 20 Active glucose 4 gram chewable tabletIndications: Type 1 diabetes mellitus with hypoglycemia and without coma (HC) Take 1 tablet by mouth each time if needed for Blood Gluc < Specify. Wait until they call for this. 150 tablet 6 12/03/19 20 Active blood sugar diagnostic (GLUCOCARD VITAL SENSOR) stripIndications:T ype 1 diabetes mellitus with hypoglycemia and without coma (HC) Dispense item covered by pt ins. E10.65 IDDM type I, uncontrolled - Test 3 times/day.TEST THREE TIMES A DAY 300 Strip 3 12/03/19 20 Active ULTICARE PEN NEEDLE 29 gauge x 1/2Indications:Ty pe 1 diabetes mellitus with hypoglycemia and without coma (HC) USE 3-5 TIMES DAILY PER MD INSTRUCTIONS 500 Each 3 07/24/20 20 Active aspirin (ECOTRIN) 81 mg enteric coated tabletIndications: Coronary artery disease involving [place] coronary artery of [place] heart with unstable angina pectoris (HC) TAKE ONE TABLET DAILY WITH A MEAL AT 8PM 90 tablet 2 10/02/20 20 Active Additional Information Patient taking differently: 81 mgOralDAILY EVENING, Informant: [facility] MAR, Reported on 08/31/2023 cholecalciferol, Vitamin D3, 2,000 unit tabletIndications: Compression fracture of L1 lumbar vertebra, sequela TAKE TWO TABLETS DAILY AT 8PM 180 tablet 3 11/30/19 21 Active Additional Information Patient taking differently: 4,000 unitOralDAILY EVENING, Informant: [facility] MAR, Reported on 08/31/2023 levothyroxine (SYNTHROID) 75 mcg tabletIndications: Acquired hypothyroidism TAKE ONE TABLET DAILY BEFORE BREAKFAST AT 8AM 90 tablet 11/30/19 21 Active Additional Information Patient taking differently: 75 mcgOralBEFORE BREAKFAST, Informant: [facility] ARMANDO, Reported on 08/31/2023 estradioL (ESTRACE) 0.01% (0.1 mg/g) vaginal creamIndications:V aginal atrophy 1 gm intravaginally every Friday and 09/03/20 23 Active olopatadine (PATADAY) 0.2 % ophthalmic solutionIndication s:Environmental allergies Place 1 drop into both eyes once daily at 8am 0 09/03/20 23 Active sodium chloride 1,000 mg soluble tabletIndications: Hyponatremia Take 1,000 mg by mouth three times daily 09/03/20 23 Active vitamin B complex (B Complex 1) tabletIndications: Preventive measure Take 1 Tablet by mouth once daily. 0 09/03/20 23 Active fludrocortisone (FLORINEF) 0.1 mg tabletIndications: Adrenal insufficiency (Wilber's disease) (HC) Take 3 Tablets (0.3 mg) by mouth once daily. 90 Tablet 2 12/15/19 24 Active Glucagon Emergency Kit, human, 1 mg injection Inject 1 mg intramuscular each time if needed. 09/05/20 23 Active diphenoxylate-atro pine, 2.5-0.025 mg, (LOMOTIL) 2.5-0.025 mg tablet Take 2 Tablets by mouth four times daily. 11/27/19 24 Active sertraline (ZOLOFT) 50 mg tabletIndications: Anxiety state Take 1 Tablet (50 mg) by mouth once daily. 12/15/19 24 Active acetaminophen (Tylenol Extra Strength) 500 mg tablet Take 1,000 mg by mouth 3 times daily if needed. Max acetaminophen dose: 4000mg in 24 hrs. Active ondansetron (ZOFRAN) 4 mg tablet Take 4 mg by mouth every 6 hours if needed for Nausea/Vomiting. Active SACCHAROMYCES BOULARDII ORAL Take by mouth once daily. Active hydrocortisone (CORTEF) 20 mg tablet Take 20 mg by mouth two times daily. Active psyllium husk, with sugar, (Metamucil, with sugar,) 3.4 gram packet Mix 1 Packet in liquid then take by mouth three times daily. Active coenzyme q10 (Co Q-10) 100 mg cap Take 100 mg by mouth once daily in the evening. Active insulin aspart, U-100, (NOVOLOG FLEXPEN) 100 unit/mL (3 mL) pen 10 units with breakfast, 7 units with lunch, and 8 units with evening meal Active insulin aspart, U-100, (NOVOLOG FLEXPEN) 100 unit/mL (3 mL) pen Sliding Scale based upon pre-meal blood glucose. Blood glucose 201 - 300 give 2 units, 301 - 400 give 3 units, 401 - 500 give 4 units, 501 or more give 5 units Active insulin glargine, U-100, 100 unit/mL (3 mL) pen Inject 6 units subcutaneous before bedtime. Active loperamide (IMODIUM) 2 mg capsule Take 4 mg by mouth 2 times daily if needed for Diarrhea. Active Multivitamins-Min- FA-Ginkgo (One Daily Women 50 Plus) 400-120 mcg-mg tab Take 1 Tablet by mouth once daily. Active sodium bicarbonate 650 mg tablet Take 1,300 mg by mouth three times daily. Active levETIRAcetam (Keppra) 500 mg tabletIndications: Seizure (HC) Take 1 Tablet (500 mg) by mouth two times daily. 03/25/20 24 Active metoprolol tartrate (LOPRESSOR) 25 mg tabletIndications: Coronary artery disease involving chene[place] coronary artery of [place]ne[place] heart with unstable angina pectoris (HC) Take 0.5 Tablets (12.5 mg) by mouth two times daily. 03/26/20 24 Active Lactobacillus rhamnosus GG (CULTURELLE) 15 billion cell capsule Take 1 capsule by mouth once daily at 8am 024 Discontinued(Du plicate therapy (E-cancel not sent)) loperamide (IMODIUM) 2 mg capsuleIndications :Irritable bowel syndrome, unspecified type TAKE ONE CAPSULE BY MOUTH TWICE DAILY IF NEEDED FOR DIARRHEA 180 capsule 06/23/20 19 024 Discontinued(Ph armacist change per medication history (E-cancel not sent)) Multivitamins-Min- FA-Ginkgo (ONE DAILY WOMEN 50 PLUS) 400-120 mcg-mg tabIndications:Ost eoporosis, unspecified osteoporosis type, unspecified pathological fracture presence Take by mouth. 90 tablet 2 12/03/19 20 024 Discontinued(Ph armacist change per medication history (E-cancel not sent)) miscellaneous medical supply miscIndications:Co mpression fracture of L2 vertebra with delayed healing As directed. New mattress for her hospital bed. Current mattress is from 2013 and is worn out. 1 Units 05/03/20 20 024 Discontinued(Ot her - add note to specify (E-cancel not sent)) coenzyme q10 100 mg capIndications:Ath erosclerosis of chenega coronary artery of [place] heart without angina pectoris Take 1 capsule by mouth once daily. Take 1 capsule by mouth daily at 8am 90 capsule 3 11/10/19 21 024 Discontinued(Re order (E-cancel not sent)) ondansetron (ZOFRAN) 4 mg tabletIndications: Nausea Take 1 Tablet (4 mg) by mouth every 4 hours if needed for Nausea/Vomiting. 09/03/20 23 024 Discontinued(Ph armacist change per medication history (E-cancel not sent)) psyllium 0.52 gram capsuleIndications :High output ileostomy (HC) Take 4 Capsules by mouth three times daily. 0 09/03/20 23 024 Discontinued(Ph armacist change per medication history (E-cancel not sent)) simethicone chewable (MYLANTA GAS RELIEF; GAS X) 80 mg chewable tabletIndications: High output ileostomy (HC) Max dose: 500 mg per 24 hrs 0 09/03/20 23 024 Discontinued(Ph armacist change per medication history (E-cancel not sent)) sodium bicarbonate 650 mg tabletIndications: Renal tubular acidosis, type 4 Take 1 Tablet (650 mg) by mouth three times daily. 0 09/03/20 23 024 Discontinued(Ph armacist change per medication history (E-cancel not sent)) metoprolol tartrate (LOPRESSOR) 25 mg tabletIndications: Coronary artery disease involving [place] coronary artery of [place] heart with unstable angina pectoris (HC) Take 0.5 Tablets (12.5 mg) by mouth two times daily. 0 09/03/20 23 024 Discontinued(Ph armacist change per medication history (E-cancel not sent)) loperamide (IMODIUM) 2 mg capsule Take 4 mg by mouth each time if needed. 024 Discontinued(Ph armacist change per medication history (E-cancel not sent)) acetaminophen (TYLENOL) 325 mg tablet Take 1,000 mg by mouth each time if needed. 024 Discontinued(Ph armacist change per medication history (E-cancel not sent)) insulin glargine, U-100, 100 unit/mL (3 mL) penIndications:Typ e 1 diabetes mellitus with complication (HC) 4 units QAM and 5 units qPM 02/09/20 24 024 Discontinued(Ph armacist change per medication history (E-cancel not sent)) [...] more give 5 units 02/19/20 24 024 Discontinued(Ph armacist change per medication history (E-cancel not sent)) predniSONE 5 mg/5 mL solutionIndication s:Adrenal insufficiency (Wilber's disease) (HC) Take 8 mL (8 mg) by mouth once daily with a meal. 240 mL 1 02/19/20 24 024 Discontinued(Ph armacist change per medication history (E-cancel not sent)) simethicone chewable (MYLANTA GAS RELIEF; GAS X) 80 mg chewable tablet Chew 80 mg by mouth three times daily. 024 Discontinued(Ph armacist change per medication history (E-cancel not sent)) morphine CONTROLLED-RELEASE (MS CONTIN) 15 mg tablet Take 15 mg by mouth three times daily. 024 Discontinued morphine CONTROLLED-RELEASE (MS CONTIN) 15 mg tabletIndications: Chronic low back pain, unspecified back pain laterality, unspecified whether sciatica present Take 1 Tablet (15 mg) by mouth every 12 hours. 6 Tablet 03/25/20 24 024 Active Problems Problem Noted Date Diagnosed Date [...] her body to the [facility]. Call [phone] right after to donate. Essential hypertension 02/19/2017 Type 1 diabetes mellitus with complication 02/19 Overview: She developed Diabetes in 1997. She was diagnosed with Type [address] Rodriguez in 07/2013 per Becca Hypothyroidism 11/20/2016 Chronic pain syndrome 08/14/2016 Atherosclerosis of [place] co ronary artery of [place] heart without angina pectoris 04/24/2016 Overview: Dr. 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 (HC) Discharge Disposition: [facility] Facility 03/16/2024 Telephone [facility] [address] [place] [phone] Vivian Newman MD Medication Management 03/15/2024 Lab Requisition [facility] [phone] Linda Cuevas NP 03/08/2024 Telephone [facility] [address] [place] [phone] Vivian Newman MD Medication Management (Questions) 03/01/2024 Lab Requisition [facility] [phone] Onur Schreiber MD 02/27/2024 Telephone [facility] [address] [place] [phone] Vivian Newman MD Medication Management (predniSONE 5 mg/5 mL solution) 02/20/2024 Lab Requisition [facility] [phone] Onur Schreiber MD 02/19/2024 Telephone [facility] [address] [place] [phone] Vivian Newman MD Medication Management (predniSONE 5 mg/5 mL solution ) 02/09/2024 Lab Requisition [facility] [phone] Onur Schreiber MD 02/09/2024 Telephone [facility] [address] [place] [address] Vivian Newman MD Results 01/28/2024 Telephone [facility] [address] [place] [phone] Vivian Newman MD Diabetes (Blood Sugar Log, Lab Results, and MAR) 01/26/2024 Lab Requisition [facility] [phone] Clarissa Grimes, AIR CONDITIONING MECHANIC 01/19/2024 Telephone [facility], [facility] [address] [place] [phone] Vivian Newman MD Medication Management 01/19/2024 Telephone [facility], [facility] [address] [place] [phone] Vivian Newman MD Diabetes 01/15/2024 Orders Only [facility] Scanner 1 scan: (1-Ord) [facility], MULTIPLE LAB RESULTS, 01/15/2024 01/15/2024 Orders Only [facility] Scanner 1 scan: (1-Ord) [facility], MULTIPLE LABS, 01/15/2024 01/15/2024 Telephone [facility], [facility] [address] [place] [phone] Vivian Newman MD Results 01/14/2024 2:00 PM CDT Phone Office Visit [facility] [address] [place] [phone] Vivian Newman MD Phone Visit; Follow Up 01/14/2024 Lab Requisition [facility] [phone] Onur Schreiber MD 01/06/2024 Telephone [facility] [address] [place] [phone] Vivian Newman MD Results 01/05/2024 Lab Requisition [facility] [phone] Clarissa Grimes NP from Last 3 Months Immunizations Name Administration [...] Disease Father heart attack d ied of [place] at 62 Other Maternal Grandmother at 99.5 [...] Sign Reading Time Taken Comments Blood Pressure 133/68 03/26/2024 9:00 AM CDT Pulse 87 03/26/2024 9:00 AM CDT Temperature 36.9 ??C (98.5 ??F) 03/26/2024 9:00 AM CD T Respiratory Rate 17 03/26/2024 9:00 AM CDT Oxygen Saturation 97% 03/26/2024 9:00 AM CDT Inhaled Oxygen Concentration - - Weight 49.9 kg (110 lb) 03/25/2024 10:57 AM CDT Height 157.5 cm (5' 2) 03/25/2024 10:57 AM CDT Body Mass Index 20.12 03/25/2024 10:57 AM CDT Plan of Treatment Upcoming Encounters Date Type Department Care Team (Late st Contact Info) Description 04/01/2024 3:00 PM CDT Office Visit [facility] [address] [place] [phone] Vivian Newman MD [address] [place] [phone] Health Maintenance Due Date Last Done Comments [...] Date/Time Associated Diagnosis Comments GLUCOSE METER Timed 03/26/2024 6:32 AM CDT GLUCOSE METER Timed 03/25/2024 9:04 PM CDT GLUCOSE METER Timed 03/25/2024 5:25 PM CDT GLUCOSE METER Timed 03/25/2024 11:41 AM CDT [...] BASIC METABOLIC PANEL Routine 01/06/2024 7:36 AM DYE REEL OPERATOR Primary adrenocortical insufficiency (HC) from Last 3 Months Results * (ABNORMAL) GLUCOSE METER (03/26/2024 6:32 AM CDT) Only the most recent of13 resultswithin the time period is included. GLUCOSE METER 247(H) 65 - 100 mg/dL 03/26/2024 6:32 AM CDT [facility] Blood BLOOD SPECIMEN / Unknown 03/26/2024 6:32 AM CDT 03/26/2024 6:32 AM CDT Andrae Yarbrough MD [facility] [address] [place] [address], * POTASSIUM (03/25/2024 10:54 AM CDT) [facility] POTASSIUM 4.5 3.5 - 5.1 mmol/L 03/25/2024 11:55 AM CDT [facility] Blood BLOOD SPECIMEN / Unknown Capillary / Unknown 03/25/2024 10:54 AM CDT 03/25/2024 11:10 AM CDT Claudia Cardenas RN CHEMISTRY [facility] [address] [place] [address], * SCAN CORRESP-LABORATORY RESULTS (03/24/2024 12:28 PM [...] 7:56 AM CDT) Only the most recent of7 resultswithin the time period is included. Pathologist [facility] SODIUM 138 136 - 145 mmol/L 03/24/2024 8:47 AM CDT [facility] POTASSIUM 3.2(L) 3.5 - 5.1 mmol/L 03/24/2024 8:47 AM CDT [facility] CHLORIDE 107 98 - 107 mmol/L 03/24/2024 8:47 AM CDT [facility] CO2,TOTAL 22 22 - 29 mmol/L 03/24/2024 8:47 AM CDT [facility] ANION GAP 9 5 - 18 03/24/2024 8:47 AM CDT [facility] GLUCOSE 96 70 - 99 mg/dL 03/24/2024 8:47 AM CDT [facility] CALCIUM 8.3(L) 8.8 - 10.2 mg/dL 03/24/2024 8:47 AM CDT [facility] BUN 15 8 - 23 mg/dL 03/24/2024 8:47 AM CDT [facility] CREATININE 0.96(H) 0.50 - 0.90 mg/dL 03/24/2024 8:47 AM CDT [facility] BUN/CREAT RATIO 16 10 - 20 8:47 AM T [facility] eGFR 58(L) >90 mL/min/1.7 3m2 03/24/2024 8:47 AM T [facility] Comment:As of 2022, eG FR [...] 8:12 AM CDT Óscar Madden MD [facility] [address] [place] [address], * Continuos video EEG (veeg) monitoring (03/23/2024 9:43 AM CDT) Narrative Lanny Abraham MBBS - 03/23/2024 9:43 AM CDT Lanny Abraham MBBS ? 03/23/2024 ??9:48 AM [facility] alf monitoring/ video EEG report Name: Shira Carlisleneftali Test Number: ??See below Test date: 03/23/24 ?? : 1935 Referring Service: ??@SERVDEPT@ Age: 88 y.o. Referring Physician: Loly Oden [facility] Procedure: videoEEG/ LTM Interpreting Physician: Lanny Abraham [...] - (Study date: 03/23/2024,Study duration:6h 30m, Study# [id number]) Indication: Unchanged, as detailed above. Procedural details: [...] - 2.0 mmol/L 03/23/2024 12:27 AM CDT [facility] Blood BLOOD SPECIMEN / Unknown Venipuncture / Unknown 03/22/2024 11:09 PM CDT 03/22/2024 11:35 PM CDT Rajan Rollinser CHEMISTRY Performing Organization Address City/[facility]/ZIP Co de Phone Number [facility] [address] [place] [address], * Phosphorus (03/22/2024 11:09 PM CDT) Pathologist [facility] PHOSPHORUS 3.1 2.5 - 4.5 mg/dL 03/23/2024 3:01 AM CDT [facility] Blood BLOOD SPECIMEN / Unknown Venipuncture / Unknown 03/22/2024 11:09 PM CDT 03/22/2024 11:34 PM CDT Rajan Tracey DO CHEMISTRY Performing Organization Address City/[facility]/ZIP Co de Phone Number [facility] [address] [place] [address], * Ammonia TODAY (03/22/2024 11:09 PM CDT) Pathologist [facility] AMMONIA 25 16 - 60 umol/L 03/23/2024 12:27 AM CDT [facility] Blood BLOOD SPECIMEN / Unknown Venipuncture / Unknown 03/22/2024 11:09 PM CDT 03/22/2024 11:28 PM CDT Narrative [facility] - 03/23/2024 12:27 AM CDT 1. ??Sulfasalazine and its metabolite Sulfapyridine at therapeutic concentrations may lead to falsely low results. 2. ??Temozolomide and its metabolite MTIC may lead to falsely elevated results, and its metabolite AIC may lead to falsely low results. Rajan Tracey DO CHEMISTRY [facility] [address] [place] [address], * SCAN-LABORATORY REPORT (01/15/2024 12:00 AM CDT) Only the most recent of2 resultswithin the time period is included. Scanner OTHER from Last 3 Months Advance Directives Documents on File Type Date Recorded Patient Cut Filer Expl anation POLST 01/05/2018 11:42 AM TRISTEN YODER, 01/02/18 Healthcare Directive 06/02/2017 9:37 AM AN ATOMY BEQUEST, [facility] [place] 05/28/2017 POLST 07/12/2014 2:25 PM TRISTEN MONSALVE, 07/12/2014 POLST 08/19/2012 3:55 PM POLST, AM Farhat CYR, 08/11/12 Healthcare Directive 04/30/2012 3:38 PM HO ME DNR REQUEST FORM, [facility] KLAR[facility]SA, 04/16/12 * DNR (Latest Code Status on File) Date Activated Date Inactivated Comments 03/23/2024 11:01 AM 03/26/2024 11:44 AM Question Answer Comments Code Status Discussion: Reviewed Preferences * DNR Date Activated Date Inactivated Comments 03/22/2024 10:36 PM 03/23/2024 11:01 AM Question Answer Comments Code Status Discussion: Unable to Assess Preferences, Provider to review later * DNR Date Activated Date Inactivated Comments 08/31/2023 2:39 AM 09/04/2023 12:43 PM POLST garcia ewed Question Answer Comments Code Status Discussion: [...] Code Status Discussion: Not Discussed Care Teams Preschool Director Relationship Specialty Start Date End Date Onur Schreiber MD [address] [place] [address] PCP - General Family Practice 04/17/22 Miladis Long, RN [address] [address] Antisubmarine Weapons Officer - [facility] Registered Nurse 08/27/21 Perla Corrigan, RN [address] [id number] Antisubmarine Weapons Officer - [facility] Registered Nurse 08/27/21 Vivian Newman MD [address] [facility] [address] [place], [place] [phone] Endocrinology 03/03/24
--- OUTSIDE RECORDS SUMMARY | 2024-04-01 10:36 | XMS_ITS | Referral Summary ---
Author Organization [facility] Address [address] [place] [address] Care Team Providers Care Sales Development Executive Name Role Phone Unavailable Primary Care Provider Unavailabl e Source Comments Patient records contain information from all sites at [facility]. For routine questions regarding patient records, call [phone] during business hours, M-F 8:00 AM - 5:00 PM Central Time. Record requests for emergency care only can be directed to [phone] at any time.[facility] Allergies Active Allergy Reactions Criticality Noted [...] Order 1 Unspecified 11 2 Active multivitamin-iron -CJ-Jx-thcryvzg (THERAPEUTIC-M) 400 mcg (folic acid) per tablet [...] Disease 05/02/2022 Atherosclerotic Heart Diseas e Of [place] Coronary Artery Without Angina Pectoris 05/02/2022 Hyperlipidemia [...] METABOLIC PANEL, S/P Routine 01/06/2024 7:36 AM INTERPRETATIVE DANCER from Last 3 Months or Most Recently Relevant to Health Maintenance Advance Directives For more information, please contact: [phone] Documents on File Type Date Recorded Patient Dispatch Manager Expl anation Advance Directives 03/10/2023 10:42 AM [...]
--- OUTSIDE RECORDS SUMMARY | 2024-04-01 10:36 | XMS_ITS ---
Author Organization [facility] Address [address] [place] [address] Care Team Providers Care Aerospace Mechanic Name Role Phone Unavailable Unavailable Unavailable Surgery Details Not on file Complications Check Surgery Details section. Procedure Estimated Blood Loss Check Surgery Details section. Procedure Findings Check Surgery Details section. Procedure Specimens Taken Check Surgery Details section.
--- OUTSIDE RECORDS SUMMARY | 2024-04-01 10:36 | XMS_ITS | Clinical Summary ---
Author Organization [facility] Address [address] [place] [address] Care Team Providers Care Chop Saw Operator Name Role Phone Unavailable Primary Care Provider Unavailabl e Source Comments Patient records contain information from all sites at [facility]. For routine questions regarding patient records, call [phone] during business hours, M-F 8:00 AM - 5:00 PM Central Time. Record requests for emergency care only can be directed to [phone] at any time.[facility] Allergies Active Allergy Reactions Criticality Noted [...] Order 1 Unspecified 11 2 Active multivitamin-iron -GK-Rp-qljqfnxh (THERAPEUTIC-M) 400 mcg (folic acid) per tablet [...] Disease 05/02/2022 Atherosclerotic Heart Diseas e Of [place] Coronary Artery Without Angina Pectoris 05/02/2022 Hyperlipidemia [...] METABOLIC PANEL, S/P Routine 01/06/2024 7:36 AM NEON SIGN SERVICER from Last 3 Months or Most Recently Relevant to Health Maintenance Advance Directives For more information, please contact: [phone] Documents on File Type Date Recorded Patient Blasting Entry Specialist Expl anation Advance Directives 03/10/2023 10:42 AM [...]
[2024-04-01 11:12] LABS: Chloride* 99 mmol/L (96-114); Potassium* 3.9 mmol/L (3.6-5.1); Sodium* 132 mmol/L (135-149)
[2024-04-01 11:15] LABS: Anion Gap 10 mEq/L (7-15); Blood Urea Nitrogen* 27 mg/dL (7-30); Carbon Dioxide* 23 mmol/L (20-32); Estimated Glomerular Filt Rate 55 ml/min
[2024-04-01 11:16] LABS: Calcium* 9.6 mg/dL (8.4-10.6); Glucose* 350 mg/dL (60-115)
[2024-04-02 17:20] LABS: Keppra (Levetiracetam) 22 ug/mL (10-40)
== END 2024-04-01 10:34 | disposition home or self-care (01) ==
LOC: NPINS 10:33
PROVIDERS: PCP Family Medicine; Visit Provider Family Medicine
DX: R41.82 Altered mental status, unspecified (principal)
CPT/HCPCS: 80048; 80177

== ENCOUNTER 2024-04-05 11:28 | Outpatient (REF) | payer BC, SELFPAY ==
--- OUTSIDE RECORDS SUMMARY | 2024-04-05 11:31 | XMS_ITS | Referral Summary ---
Author Organization [facility] Address [address] [place] [address] Care Team Providers Care Subsurface Augmentee Operator Name Role Phone Unavailable Primary Care Provider Unavailabl e Source Comments Patient records contain information from all sites at [facility]. For routine questions regarding patient records, call [phone] during business hours, M-F 8:00 AM - 5:00 PM Central Time. Record requests for emergency care only can be directed to [phone] at any time.[facility] Allergies Active Allergy Reactions Criticality Noted Date [...] Order 1 Unspecified 11 2 Active multivitamin-iron -LC-Kj-xfnxjkpf (THERAPEUTIC-M) 400 mcg (folic acid) per tablet [...] Disease 05/02/2022 Atherosclerotic Heart Diseas e Of [place] Coronary Artery Without Angina Pectoris 05/02/2022 Hyperlipidemia [...] Name Priority Date/Time Associated Diagnosis Comments EXTI POTASSIUM, S/P Routine 03/25/2024 1 0:54 AM CDT EXTI BASIC METABOLIC PANEL, S/P Routine 03/24/2024 7:56 AM CDT from Last 3 Months or Most Recently Relevant to Health Maintenance Advance Directives For more information, please contact: [phone] Documents on File Type Date Recorded Patient Glass Blowing Instructor Expl anation Advance Directives 03/10/2023 10:42 AM [...]
--- OUTSIDE RECORDS SUMMARY | 2024-04-05 11:31 | XMS_ITS ---
Author Organization [facility] Address [address] [place] [address] Care Team Providers Care Cane Furniture Maker Name Role Phone Unavailable Unavailable Unavailable Surgery Details Not on file Complications Check Surgery Details section. Procedure Estimated Blood Loss Check Surgery Details section. Procedure Findings Check Surgery Details section. Procedure Specimens Taken Check Surgery Details section.
--- OUTSIDE RECORDS SUMMARY | 2024-04-05 11:31 | XMS_ITS | Clinical Summary ---
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) TAKE ONE TABLET DAILY WITH A MEAL AT 8PM 90 tablet 2 10/02/20 20 Active Additional Information Patient taking differently: 81 mgOralDAILY EVENING, Informant: Usp MAR, Reported on 08/31/2023 cholecalciferol, Vitamin D3, 2,000 unit tabletIndications: Compression fracture of L1 lumbar vertebra, sequela TAKE TWO TABLETS DAILY AT 8PM 180 tablet 3 11/30/19 21 Active Additional Information Patient taking differently: 4,000 unitOralDAILY EVENING, Informant: Usp MAR, Reported on 08/31/2023 levothyroxine (SYNTHROID) 75 mcg tabletIndications: Acquired hypothyroidism TAKE ONE TABLET DAILY BEFORE BREAKFAST AT 8AM 90 tablet 11/30/19 21 Active Additional Information Patient taking differently: 75 mcgOralBEFORE BREAKFAST, Informant: Usp ARMANDO, Reported on 08/31/2023 estradioL (ESTRACE) 0.01% [...] fludrocortisone (FLORINEF) 0.1 mg tabletIndications: Adrenal insufficiency (Lolo's disease) (HC) Take 3 Tablets (0.3 mg) [...] 25 mg tabletIndications: 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 Call [phone] right after to donate. Essential hypertension 02/19/2017 Type 1 diabetes mellitus with complication 02/19 Overview: She developed Diabetes in 1997. She was diagnosed with Type [address] Rodriguez in 07/2013 per Becca Hypothyroidism 11/20/2016 Chronic pain syndrome 08/14/2016 Atherosclerosis of [place] co ronary artery of [place] heart without angina pectoris 04/24/2016 Overview: Dr. [...] Encounters Date Type Department Care Team Description 04/05/2024 Telephone [facility] [address] [place] [phone] Vivian Newman MD Appointment 04/01/2024 Lab Requisition [facility] [phone] Onur Schreiber MD 03/22/2024 9:44 PM CDT - 03/26/2024 9:33 AM CDT Hospital Encounter [facility] [address] [place] [address] [facility], [facility] Hospitalists Of [facility], MD Maryanne Reese, MD Linnea Greene Ashfaq, MD Chronic low back pain, unspecified back pain laterality, unspecified whether sciatica present (Primary Dx); Seizure (HC); 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) Discharge Disposition: Retirement Facility 03/16/2024 Telephone [facility] [address] [place] [phone] Vivian Newman MD Medication Management 03/15/2024 Lab Requisition [facility] [phone] Linda Cuevas NP 03/08/2024 Telephone [facility] [address] [place] [phone] Vivian Newmna MD Medication Management (Questions) 03/01/2024 Lab Requisition [facility] [phone] Onur Schreiber MD 02/27/2024 Telephone Don, E[facility]ka[facility] [address] [place] [address] Vivian Newman MD Medication Management (predniSONE 5 mg/5 mL solution) 02/20/2024 Lab Requisition [facility] [phone] Onur Schreiber MD 02/19/2024 Telephone Odn, Emeka, [facility] [address] [place] [address] Vivian Newman MD Medication Management (predniSONE 5 mg/5 mL solution ) 02/09/2024 Lab Requisition [facility] [phone] Onur Schreiber MD 02/09/2024 Telephone Don, E[facility]ka[facility] [address] [place] [address] Vivian Newman MD Results 01/28/2024 Telephone Don, E[facility]ka, [facility] [address] [place] [address] Vivian Newman MD Diabetes (Blood Sugar Log, Lab Results, and MAR) 01/26/2024 Lab Requisition [facility] [phone] Clarissa Grimes NP 01/19/2024 Telephone Don, [facility]ka[facility] [address] [place] [address] Vivian Newman MD Medication Management 01/19/2024 Telephone Don, [facility]ka, [facility] [address] [place] [address] Vivian Newman MD Diabetes 01/15/2024 Orders Only [facility] Scanner 1 scan: (1-Ord) [facility], MULTIPLE LAB RESULTS, 01/15/2024 01/15/2024 Orders Only [facility] Scanner 1 scan: (1-Ord) [facility], 01/15/2024 01/15/2024 Telephone [facility]ka Don [facility] [address] [place] [phone] Vivian Newman MD Results 01/14/2024 2:00 PM CDT Phone Office Visit [facility] [address] [place] [phone] Vivian Newman MD Phone Visit; Follow Up 01/14/2024 Lab Requisition [facility] [phone] Onur Schreiber MD 01/06/2024 Telephone [facility] [address] [place] [phone] Vivian Newman MD Results 01/05/2024 Lab Requisition [facility] [phone] Clarissa Grimes, HIEN from Last 3 Months Immunizations Name Administration [...] Disease Father heart attack d ied of [place] at 62 Other Maternal Grandmother at 99.5 [...] Care Team (Late st Contact Info) Description 07/21/2024 11:30 AM CDT Phone Office Visit [facility] [address] [place] [phone] Vivian Newman MD [address] [place] [phone] Health Maintenance Due Date Last Done Comments [...] BASIC METABOLIC PANEL Routine 01/06/2024 7:36 AM MANDREL PULLER Primary adrenocortical insufficiency (HC) from Last 3 Months Results * (ABNORMAL) GLUCOSE METER (03/26/2024 6:32 AM CDT) Only the most recent of13 resultswithin the time period is included. [facility] Signature GLUCOSE METER 247(H) 65 - 100 mg/dL 03/26/2024 6:32 AM CDT [facility] Blood BLOOD SPECIMEN / Unknown 03/26/2024 6:32 AM CDT 03/26/2024 6:32 AM CDT Andrae Yarbrough MD CHEMISTRY [facility] [address] [place] [address], * POTASSIUM (03/25/2024 10:54 AM CDT) POTASSIUM 4.5 3.5 - 5.1 mmol/L 03/25/2024 11:55 AM CDT [facility] Blood BLOOD SPECIMEN / Unknown Capillary / Unknown 03/25/2024 10:54 AM CDT 03/25/2024 11:10 AM CDT Claudia Cardenas RN CHEMISTRY Performing Organization Address City/[facility]/ZIP Co de Phone Number [facility] [address] [address], * SCAN CORRESP-LABORATORY RESULTS (03/24/2024 12:28 PM [...] of7 resultswithin the time period is included. SODIUM 138 136 - 145 mmol/L 03/24/2024 8:47 AM CDT [facility] POTASSIUM 3.2(L) 3.5 - 5.1 mmol/L 03/24/2024 8:47 AM T [facility] CHLORIDE 107 98 - 107 mmol/L 03/24/2024 8:47 AM T [facility] CO2,TOTAL 22 22 - 29 mmol/L 03/24/2024 8:47 AM T [facility] ANION GAP 9 5 - 18 03/24/2024 8:47 AM T [facility] GLUCOSE 96 70 - 99 mg/dL 03/24/2024 8:47 AM T [facility] CALCIUM 8.3(L) 8.8 - 10.2 mg/dL 03/24/2024 8:47 AM T [facility] BUN 15 8 - 23 mg/dL 03/24/2024 8:47 AM [facility] CREATININE 0.96(H) 0.50 - 0.90 mg/dL 03/24/2024 8:47 AM T [facility] BUN/CREAT RATIO 16 10 - 20 8:47 AM T [facility] eGFR 58(L) >90 mL/min/1.7 3m2 03/24/2024 8:47 AM [facility] Comment:As of 2022, [...] 8:12 AM CDT Óscar Madden MD CHEMISTRY [facility] [address] [place] [address], * Continuos video EEG (veeg) monitoring (03/23/2024 9:43 AM CDT) Narrative Lanny Abraham MBBS - 03/23/2024 9:43 AM CDT Lanny Abraham MBBS ? 03/23/2024 ??9:48 AM [facility] [place] senior care monitoring/ video EEG report Name: Shira Stauffer Test Number: ??See below Test date: 03/23/24 ?? : 1935 Referring Service: ??@SERVDEPT@ Age: 88 y.o. Referring Physician: Loly Oden [facility] Procedure: videoEEG/ LTM Interpreting Physician: Lanny Abraham [...] - (Study date: 03/23/2024,Study duration:6h 30m, Study# [id number]) Indication: Unchanged, as detailed above. Procedural details: [...] - 2.0 mmol/L 03/23/2024 12:27 AM CDT [facility] Blood BLOOD SPECIMEN / Unknown Venipuncture / Unknown 03/22/2024 11:09 PM CDT 03/22/2024 11:35 PM CDT Rajan Tracey DO CHEMISTRY Performing Organization Address City/[facility]/ZIP Co de Phone Number [facility] [address] [place] [address], * Phosphorus (03/22/2024 11:09 PM CDT) Pathologist [facility] PHOSPHORUS 3.1 2.5 - 4.5 mg/dL 03/23/2024 3:01 AM CDT [facility] Blood BLOOD SPECIMEN / Unknown Venipuncture / Unknown 03/22/2024 11:09 PM CDT 03/22/2024 11:34 PM CDT Rajan Tracey DO CHEMISTRY [facility] [address] [place] [address], * Ammonia TODAY (03/22/2024 11:09 PM CDT) AMMONIA 25 16 - 60 umol/L 03/23/2024 12:27 AM CDT [facility] Blood BLOOD SPECIMEN / Unknown Venipuncture / Unknown 03/22/2024 11:09 PM CDT 03/22/2024 11:28 PM CDT Narrative [facility] - 03/23/2024 12:27 AM CDT 1. ??Sulfasalazine and its metabolite Sulfapyridine at therapeutic concentrations may lead to falsely low results. 2. ??Temozolomide and its metabolite MTIC may lead to falsely elevated results, and its metabolite AIC may lead to falsely low results. Rajan Tracey DO CHEMISTRY [facility] [address] [place] [address], [place] * SCAN-LABORATORY REPORT (01/15/2024 12:00 AM CDT) Only the most recent of2 resultswithin the time period is included. Scanner OTHER from Last 3 Months Advance Directives Documents on File Type Date Recorded Patient Quality Assurance Engineer Expl anation POLST 01/05/2018 11:42 AM TRISTEN YODER, 01/02/18 Healthcare Directive 06/02/2017 9:37 AM AN YVES CHENG 05/28/2017 POLST 07/12/2014 2:25 PM TRISTEN MONSALVE, 07/12/2014 POLST 08/19/2012 3:55 PM POL, TOOTIE CYR, 08/11/12 Healthcare Directive 04/30/2012 3:38 PM HO DNR REQUEST FORM, [facility], 04/16/12 * DNR (Latest Code Status on [...] Code Status Discussion: Not Discussed Care Teams Workers' Compensation Claims Supervisor Relationship Specialty Start Date End Date Onur Schreiber MD [address] [place] [address] PCP - General Family Practice 04/17/22 Miladis Long, RN [address] [place] [phone] Inbound Customer Service Agent - [facility] Registered Nurse 08/27/21 Perla Corrigan RN [address] [place] [phone] Inbound Customer Service Agent - [facility] Registered Nurse 08/27/21 Vivian Newman MD [address] [facility] [address] [place] [address] Endocrinology 03/03/24
--- OUTSIDE RECORDS SUMMARY | 2024-04-05 11:31 | XMS_ITS | Clinical Summary ---
Author Organization [facility] Address [address] [place] [address] Care Team Providers Care Dry Mop Maker Name Role Phone Unavailable Primary Care Provider Unavailabl e Source Comments Patient records contain information from all sites at [facility]. For routine questions regarding patient records, call [phone] during business hours, M-F 8:00 AM - 5:00 PM Central Time. Record requests for emergency care only can be directed to [phone] at any time.[facility] Allergies Active Allergy Reactions Criticality Noted Date [...] Order 1 Unspecified 11 2 Active multivitamin-iron -WE-Mj-xocodjwq (THERAPEUTIC-M) 400 mcg (folic acid) per tablet [...] Disease 05/02/2022 Atherosclerotic Heart Diseas e Of [place] Coronary Artery Without Angina Pectoris 05/02/2022 Hyperlipidemia [...] Date Recorded Dental: Regular Dentist Unknown 05/02/20 Sex and Gender Information Value Date Recorded [...] 03/03/2024 Creatinine Level (Kidney Fun ction Test) 03/24/2025 03/24/2024, 03/22/2024, 03/16/2024, Additional history exists Sodium Level 03/24/2025 03/24/2024, 03/04, 03/16/2024, Additional history exists Potassium Level 03/25/2025 03/25/2024, 03/04, 03/22/2024, Additional history exists DTaP,Tdap,and Td Vaccines (2 [...] Advance Directives For more information, please contact: [phone] Documents on File Type Date Recorded Patient Radio Installer Expl anation Advance Directives 03/10/2023 10:42 AM Gianna GEORGE/ADVOCATE/AGENT/REPR ESENTATIVE/SURROGATE Advance Directives 03/03/2023 11:01 PM POLS [...]
[2024-04-05 11:49] LABS: Appearance Urine Slightly Cloudy (Clear); Bilirubin Urine Negative (Negative); Blood Urine Negative (Negative); Color Urine Yellow (Yellow); Glucose Urine Negative (Negative); Ketones Urine Negative (Negative); Leukocyte Esterase Urine Negative (Negative); Nitrite Urine Negative (Negative); Protein Urine 1+ (Negative); Specific Gravity Urine 1.015 (1.000-1.030); Urobilinogen Urine 0.2 (0.2-1.0); pH Urine 5.5 (5.0-8.5)
[2024-04-05 11:59] LABS: Bacteria Urine Few; RBC Urine 0-2 (0-2); Squamous Epithelial Cell Urine Moderate (None-Few); WBC Urine 0-2 (0-5)
[2024-04-05 12:00] LABS: Fine Granular Casts Urine Few
== END 2024-04-05 11:29 | disposition home or self-care (01) ==
LOC: NPINS 11:28
PROVIDERS: PCP Family Medicine; Visit Provider Nurse Practitioner Gerontology
DX: R41.82 Altered mental status, unspecified (principal)
CPT/HCPCS: 81001; 81003; 87086; 87186

== ENCOUNTER 2024-05-13 19:44 | Outpatient (CLI) | payer BC, SELFPAY | END 2024-05-13 19:45 | disposition home or self-care (01) | LOC: AMB 05-19 19:29 | PROVIDERS: PCP Family Medicine; Visit Provider Emergency Medicine | DX: S09.90XA Unspecified injury of head, initial encounter (principal); R41.0 Disorientation, unspecified; W06.XXXA Fall from bed, initial encounter; Y92.032 Bedroom in apartment as the place of occurrence of the external cause | CPT/HCPCS: A0425; A0427 ==

== ENCOUNTER 2024-05-13 20:07 | Emergency (ER) | payer BC, SELFPAY ==
--- NOTE | 2024-05-13 20:08 | CRLHL7_ITS ---
For Patients: As a result of the Century Cures Act, medical imaging exams and procedure reports are released immediately into your electronic medical record. You may view this report before your referring provider. If you have questions, please contact your health care provider. INDICATION: Fall. TECHNIQUE: Noncontrast CT images of the cervical spine. COMPARISON: CT cervical spine 11/30/2023. FINDINGS: Diffuse osseous demineralization. Moderate leftward cervical curvature. No acute fracture or traumatic subluxation. Advanced multilevel disc height loss. Multilevel posterior disc osteophyte complexes contribute up to exex-ys-qbswptql spinal canal narrowing from C3-4 through C5-6. Multilevel uncinate spurring and facet arthropathy contributing up to moderately severe neural foraminal stenosis on the right at C5-6. No concerning opacities in the visualized lungs. IMPRESSION: 1. No acute fracture or traumatic subluxation. 2. Multilevel cervical spondylosis. Please note that all CT scans at this facility use dose modulation, iterative reconstruction, and/or weight-based dosing when appropriate to reduce radiation dose to as low as reasonably achievable. Dictated by Gregory Talavera MD @ 05/13/2024 9:31:09 PM (Electronically Signed)
--- NOTE | 2024-05-13 20:08 | CRLHL7_ITS ---
For Patients: As a result of the Century Cures Act, medical imaging exams and procedure reports are released immediately into your electronic medical record. You may view this report before your referring provider. If you have questions, please contact your health care provider. INDICATION: Fall. TECHNIQUE: Noncontrast CT images of the brain. COMPARISON: MRI brain 03/22/2024. FINDINGS: Uonf-zy-wrseixhv diffuse cerebral volume loss. No mass effect or midline shift. The [place]-white differentiation is maintained. No acute intracranial hemorrhage or pathologic extra-axial fluid collection. Suggested mild to moderate chronic microvascular ischemic changes. Intracranial atherosclerotic calcifications. Thinning of the ocular lenses. The calvarium is intact. The paranasal sinuses are clear. Postsurgical changes of left canal wall up mastoidectomy. The mastoid air cells are clear. IMPRESSION: No acute intracranial hemorrhage or mass effect. Please note that all CT scans at this facility use dose modulation, iterative reconstruction, and/or weight-based dosing when appropriate to reduce radiation dose to as low as reasonably achievable. Dictated by Gregory Talavera MD @ 05/13/2024 9:28:06 PM (Electronically Signed)
[2024-05-13 20:16] VITALS: BP 147/70; PULSE 103; RESP 16; TEMP 36; O2SAT 94
--- NOTE | 2024-05-13 20:23 | ED.GENADULT ---
HPI - General Adult General Chief complaint: Altered Mental Status Stated complaint: Fall/altered mental status Time Seen by Provider: 05/13/24 20:10 History of Present Illness HPI narrative: Patient is a 88-year-old woman coming from [place] who has fallen several times today. History is a somewhat limited however does appear that the patient fell again this evening and now has pain in the right posterior head. Patient is conversation with the GCS is 15. There is concern of head injury and the patient did present as a TT a. She has been in her usual state of health otherwise and denies any other recent symptoms. She states she has no other significant pain and has been eating and drinking normally. Again no further history available this time. Related Data Home Medications ?Medication ?Instructions ?Recorded ?Confirmed cholecalciferol (vitamin D3) 50 4,000 unit PO HS 05/02/22 03/22/24 mcg (2,000 unit) tablet coenzyme Q10 100 mg capsule 100 mg PO HS 05/02/22 03/22/24 estradiol 0.01% (0.1 mg/gram) 1 appful vaginal .MOTH@HS 05/02/22 03/22/24 vaginal cream hydrocortisone 5 mg tablet 20 mg PO BID 05/02/22 03/22/24 lactobacillus combination no.4 3 3,000 mmu cells PO DAILY 05/02/22 03/22/24 billion cell capsule (Probiotic) levothyroxine 75 mcg tablet 75 mcg PO DAILY 05/02/22 03/22/24 multivit-iron 18 mg-folic acid 400 1 tab PO DAILY 05/02/22 03/22/24 mcg-calcium 500 mg-minerals tablet (Women's One Daily) olopatadine 0.2 % eye drops 1 drp ophthalmic (eye) DAILY 05/02/22 03/22/24 vitamin B complex (Vitamins B 1 cap PO DAILY 05/02/22 03/22/24 Complex capsule) acetaminophen 500 mg capsule 1,000 mg PO TID PRN 05/28/22 03/22/24 ondansetron HCl 4 mg tablet 4 mg PO Q6H PRN 05/28/22 03/22/24 simethicone 80 mg chewable tablet 80 mg PO TID 05/28/22 03/22/24 aspirin 81 mg chewable tablet 81 mg PO HS 03/03/23 03/22/24 glucose 4 gram chewable tablet 4 g PO Q15M PRN 03/03/23 03/22/24 (Dex4 Glucose) sertraline 50 mg tablet 50 mg PO DAILY 03/03/23 03/22/24 loperamide 2 mg capsule 4 mg PO BID PRN 03/27/23 03/22/24 glucagon 1 mg solution for 1 mg IM ONCE PRN 09/19/23 03/22/24 injection (Glucagon Emergency Kit) insulin aspart U-100 100 unit/mL 5 sliding scale dose subcut 09/19/23 03/22/24 (3 mL) subcutaneous pen USEASDIRECTD insulin aspart U-100 100 unit/mL 7 - 10 unit subcut TIDWM 09/19/23 03/22/24 (3 mL) subcutaneous pen nitroglycerin 0.4 mg sublingual 0.4 mg sublingual Q5M PRN 09/19/23 03/22/24 tablet morphine 15 mg tablet,extended 15 mg PO TID 11/30/23 03/22/24 release fludrocortisone 0.1 mg tablet 0.3 mg PO DAILY 03/22/24 03/22/24 Previous Rx's ?Medication ?Instructions ?Recorded sodium chloride 1,000 mg soluble 1,000 mg PO TIDWM 30 days #90 tabs 04/02/23 tablet diphenoxylate-atropine 2.5 2 tab PO QID #240 tabs 09/30/23 mg-0.025 mg tablet psyllium husk (with sugar) 3.4 1 tbsp PO TIDWM #1,045 grams 09/30/23 gram oral powder packet (Metamucil (with sugar)) sodium bicarbonate 650 mg tablet 1,300 mg (2 x 650 mg) PO TIDWM 09/30/23 #180 tabs insulin glargine 100 unit/mL (3 6 unit (0.06 mL) subcut DAILY #15 02/27/24 mL) subcutaneous pen (Lantus mL Solostar U-100 Insulin) Allergies Allergy/AdvReac Type Severity Reaction Status Date / Time adhesive tape Allergy Mild Rash Verified 03/21/24 20:43 diclofenac Allergy Unknown Verified 03/21/24 20:43 aspartame Allergy Verified 03/21/24 20:43 beclomethasone Allergy Verified 03/21/24 20:43 bisacodyl Allergy Verified 03/21/24 20:43 dexamethasone Allergy Verified 03/21/24 20:43 doxycycline Allergy Verified 03/21/24 20:43 erythromycin base Allergy Verified 03/21/24 20:43 gabapentin Allergy Verified 03/21/24 20:43 hydrochlorothiazide Allergy Verified 03/21/24 20:43 lactase [From Dairy Aid] Allergy Verified 03/21/24 20:43 meclizine Allergy Verified 03/21/24 20:43 metformin Allergy Verified 03/21/24 20:43 metoclopramide Allergy Verified 03/21/24 20:43 nabumetone [From Relafen] Allergy Verified 03/21/24 20:43 propranolol Allergy Verified 03/21/24 20:43 raloxifene Allergy Verified 03/21/24 20:43 ramipril Allergy Verified 03/21/24 20:43 tobramycin Allergy Verified 03/21/24 20:43 venlafaxine Allergy Verified 03/21/24 20:43 Review of Systems Status of ROS: Reports: 10 or more systems reviewed and unremarkable except as noted in History and below [facility] Medical History POLST (Physician Orders for Life-Sustaining Treatment) ?Z78.9 - Other specified health status (ICD-10) Seizure ?R56.9 - Unspecified convulsions (ICD-10) Elevated liver transaminase level ?R74.01 - Elevation of levels of liver transaminase levels (ICD-10) Addisonian crisis ?E27.2 - Addisonian crisis (ICD-10) Acute hyperglycemia ?R73.9 - Hyperglycemia, unspecified (ICD-10) Ileostomy in place ?Z93.2 - Ileostomy status (ICD-10) Frailty syndrome in geriatric patient ?R54 - Age-related physical debility (ICD-10) Chronic hyponatremia ?E87.1 - Hypo-osmolality and hyponatremia (ICD-10) Hyperkalemia (12/22/11) ?E87.5 - Hyperkalemia (ICD-10) Acute cystitis without hematuria ?N30.00 - Acute cystitis without hematuria (ICD-10) Physical deconditioning ?R53.81 - Other malaise (ICD-10) Low body weight due to inadequate caloric intake ?R63.6 - Underweight (ICD-10) Adult failure to thrive ?R62.7 - Adult failure to thrive (ICD-10) Weakness ?R53.1 - Weakness (ICD-10) Chronic pain ?G89.29 - Other chronic pain (ICD-10) Altered mental status ?R41.82 - Altered mental status, unspecified (ICD-10) Atrial fibrillation ?I48.91 - Unspecified atrial fibrillation (ICD-10) Diabetes mellitus type 1 (12/22/11) ?E10.9 - Type 1 diabetes mellitus without complications (ICD-10) Renal tubular acidosis, type 4 ?N25.89 - Other disorders resulting from impaired renal tubular function (ICD-10) Polypharmacy ?Z79.899 - Other skilled nursing (current) drug therapy (ICD-10) Osteoporosis ?M81.0 - Age-related osteoporosis without current pathological fracture (ICD-10) Ketoacidosis due to diabetes mellitus (08/03/13) ?E11.10 - Type 2 diabetes mellitus with ketoacidosis without coma (ICD-10) Irritable bowel syndrome ?K58.9 - Irritable bowel syndrome without diarrhea (ICD-10) Falls (03/31/12) ?W19.XXXA - Unspecified fall, initial encounter (ICD-10) Epistaxis ?R04.0 - Epistaxis (ICD-10) Diverticulitis of large intestine ?K57.32 - Diverticulitis of large intestine without perforation or abscess without bleeding (ICD-10) Diabetic gastroparesis (08/03/13) ?E11.43 - Type 2 diabetes mellitus with diabetic autonomic (poly)neuropathy (ICD-10) ?K31.84 - Gastroparesis (ICD-10) Coronary artery disease ?I25.10 - Atherosclerotic heart disease of [place] coronary artery without angina pectoris (ICD-10) Concussion (03/29/12) ?S06.0XAA - Concussion with loss of consciousness status unknown, initial encounter (ICD-10) Compression fracture of L2 vertebra with delayed healing ?S32.020G - Wedge compression fracture of second lumbar vertebra, subsequent encounter for fracture with delayed healing (ICD-10) Closed head injury ?S09.90XA - Unspecified injury of head, initial encounter (ICD-10) Closed fracture of superior ramus of right pubis ?S32.511A - Fracture of superior rim of right pubis, initial encounter for closed fracture (ICD-10) Closed fracture of left side of symphysis pubis ?S32.592A - Other specified fracture of left pubis, initial encounter for closed fracture (ICD-10) Closed fracture of left inferior pubic ramus ?S32.592A - Other specified fracture of left pubis, initial encounter for closed fracture (ICD-10) Chronic constipation (07/02/13) ?K59.09 - Other constipation (ICD-10) Anxiety disorder ?F41.9 - Anxiety disorder, unspecified (ICD-10) 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 - Primary adrenocortical insufficiency (ICD-10) Seizure ?R56.9 - Unspecified convulsions (ICD-10) Hypothyroidism ?E03.9 - Hypothyroidism, unspecified (ICD-10) Hyponatremia (12/22/11) ?E87.1 - Hypo-osmolality and hyponatremia (ICD-10) Gastroesophageal reflux disease ?K21.9 - Gastro-esophageal reflux disease without esophagitis (ICD-10) Chronic pain ?G89.29 - Other chronic pain (ICD-10) Asthma ?J45.909 - Unspecified asthma, uncomplicated (ICD-10) Acute adrenal crisis ?E27.2 - Addisonian crisis (ICD-10) POLST (Physician Orders for Life-Sustaining Treatment) ?Z78.9 - Other specified health status (ICD-10) Health care directive on file ?Z78.9 - Other specified health status (ICD-10) High output ileostomy ?R19.8 - Other specified symptoms and signs involving the digestive system and abdomen (ICD-10) ?Z93.2 - Ileostomy status (ICD-10) Hyperkalemia ?E87.5 - Hyperkalemia (ICD-10) Abnormal liver enzymes ?R74.8 - Abnormal levels of other serum enzymes (ICD-10) Dementia ?F03.90 - Unspecified dementia without behavioral disturbance (ICD-10) Cataract ?H26.9 - Unspecified cataract (ICD-10) Dorsalgia ?M54.9 - Dorsalgia, unspecified (ICD-10) Hyperlipidemia ?E78.5 - Hyperlipidemia, unspecified (ICD-10) Unspecified dementia without behavioral disturbance ?F03.90 - Unspecified dementia without behavioral disturbance (ICD-10) Postmenopausal atrophic vaginitis ?N95.2 - Postmenopausal atrophic vaginitis (ICD-10) Convulsions ?R56.9 - Unspecified convulsions (ICD-10) Pressure ulcer of sacral region, unstageable ?L89.150 - Pressure ulcer of sacral region, unstageable (ICD-10) Constipation ?K59.00 - Constipation, unspecified (ICD-10) Primary hypertension ?I10 - Essential (primary) hypertension (ICD-10) Vertebral fracture Osteoarthritis ?M19.90 - Unspecified osteoarthritis, unspecified site (ICD-10) Chronic kidney disease (CKD) stage G3a/A1, moderately decreased glomerular filtration rate (GFR) between 45-59 mL/min/1.73 square meter and albuminuria creatinine ratio less than 30 mg/g ?N18.31 - Chronic kidney disease, stage 3a (ICD-10) 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 - Atherosclerotic heart disease of [place] coronary artery without angina pectoris (ICD-10) GERD (gastroesophageal reflux disease) ?K21.9 - Gastro-esophageal reflux disease without esophagitis (ICD-10) Anxiety ?F41.9 - Anxiety disorder, unspecified (ICD-10) Pelvic fracture ?S32.9XXA - Fracture of unspecified parts of lumbosacral spine and pelvis, initial encounter for closed fracture (ICD-10) Primary adrenocortical insufficiency ?E27.1 - Primary adrenocortical insufficiency (ICD-10) Diabetes mellitus type 1 ?E10.9 - Type 1 diabetes mellitus without complications (ICD-10) Surgical History S/P small bowel resection ?Z90.49 - Acquired absence of other specified parts of digestive tract (ICD-10) H/O angioplasty ?Z98.62 - Peripheral vascular angioplasty status (ICD-10) H/O mastoidectomy ?Z90.89 - Acquired absence of other organs (ICD-10) S/P laparoscopic cholecystectomy ?Z90.49 - Acquired absence of other specified parts of digestive tract (ICD-10) S/P appendectomy ?Z90.49 - Acquired absence of other specified parts of digestive tract (ICD-10) No significant past surgical history Social History Narrative: Patient lives in a long term. Code status DNR DNI What is your current living situation?: I presently have a place to live Problems where you live: unable to answer Problems where you live details: [place] In the past 12 months, utilities in danger of being shut off: unable to answer In past 12 months, lack of transportation kept you from medical appts, meetings, work, or getting things needed for daily living: unable to answer In the past 12 mos, have been you worried that your food would run out before you had money to buy more?: unable to answer In the past 12 mos, the food you bought just didn't last and you didn't have money to buy more?: unable to answer Smoking Status: Never smoker Nicotine containing products detail: hx not current pt unable to respond appropriately. Second hand tobacco smoke exposure: No How often do you have a drink containing alcohol: never AUDIT-C Alcohol total score: 0 Non-prescribed substance use: denies use and other Non-prescribed substance use details: no use per [facility] pp[facility] How often does anyone, including family, friends and others, physically hurt you: unable to answer How often does anyone, including family, friends and others, insult or talk down to you: unable to answer How often does anyone, including family, friends and others, threaten you with harm: unable to answer How often does anyone, including family, friends and others, scream or curse at you: unable to answer service: No Exam Narrative: Exam Narrative: EXAM GENERAL: Patient appears comfortable and well. EYES: No scleral icterus. ENT: Tympanic membranes and oropharynx normal. THYROID: no thyroid nodules or thyromegaly. LYMPH: No supraclavicular or cervical lymphadenopathy. SKIN: Visible skin seen during exam normal or with benign process only. EXT: No dependent lower extremity pedal edema. HEART: Regular rate and rhythm with no murmurs, rubs, or gallops. LUNGS: Clear to auscultation bilaterally with no crackles or wheezes. ABD: Soft, non tender, non distended. Ostomy noted. PSYCH: Good eye contact, speech is not pressured. Back exam is unremarkable GCS 15 Neurologic cranial nerves 2-12 grossly intact no focal defects No obvious signs of any trauma. Const: Vital Signs, click to edit/add: Vital Signs - 24 hr 05/13/24 20:16 Temperature 96.8 F L Pulse Rate [Pulse Oximeter] 103 H Respiratory Rate 16 Blood Pressure [Le ft Upper Arm] 147/70 H Pulse Oximetry 94 Oxygen Delivery Me thod Room Air Course Course ED Course: Patient arrived and was taken immediately to the CT scanner for CT head and neck. Vital Signs Vital signs: Initial Vital Signs Temperature 96.8 F L 05/13/24 20:16 Temperature Source Temporal Artery Scan 05/13/24 20:16 Pulse Rate 103 H 05/13/24 20:16 Respiratory Rate 16 05/13/24 20:16 Blood Pressure 147/70 H 05/13/24 20:16 Blood Pressure Mean 95 05/13/24 20:16 Blood Pressure Position Supine 05/13/24 20:16 Pulse Oximetry 94 05/13/24 20:16 Oxygen Delivery Method Room Air 05/13/24 20:16 Vital Signs Temperature 96.8 F L 05/13/24 20:16 Pulse Rate 103 H 05/13/24 20:16 Respiratory Rate 16 05/13/24 20:16 Blood Pressure 147/70 H 05/13/24 20:16 Pulse Oximetry 94 05/13/24 20:16 Oxygen Delivery Method Room Air 05/13/24 20:16 Temperature 96.8 F L 05/13/24 20:16 Pulse Rate 103 H 05/13/24 20:16 Respiratory Rate 16 05/13/24 20:16 Blood Pressure 147/70 H 05/13/24 20:16 Pulse Oximetry 94 05/13/24 20:16 Oxygen Delivery Method Room Air 05/13/24 20:16 Medical Decision Making MDM Narrative Medical decision making narrative: Patient is a 88-year-old woman who presents after frequent falls at the long term. CT of the head and neck were without abnormality. Laboratory studies were fine with the exception of a low glucose in the 40s. We did give her juice and she did come up 79. I did carefully review her Mar from the long term and I note that she is on glargine insulin daily. She is also on insulin with meals. At this time will discontinue her glargine insulin. She can have her mealtime insulins. She is otherwise back to her baseline he can safely be discharged back to home specially given that she is a DNR DNI. We did document that she has had her previous level of functioning. Make no other changes. Lab Data Labs: Lab Results 05/13/24 Range/Units 20:56 WBC 12.44 H (4.50-11.00) K/uL RBC 4.01 (4.00-5.20) m/uL Hgb 12.2 (12.0-16.0) gm/dL Hct 37.7 (33.0-51.0) % MCV 94 (80-100) fL MCH 30 (26-34) pg MCHC 32 (32-36) gm/dL RDW Coeff of Sharmaine 13.5 (11.5-15.5) % Plt Count 258 (140-440) K/uL Neut % (Auto) 71.3 (42.0-72.0) % Lymph % (Auto) 19.1 L (20-44) % Sierra % (Auto) 7.5 (0.0-11.0) % Eos % (Auto) 1.0 (0.0-7.0) % Baso % (Auto) 0.2 (0.0-3.0) % Neut # (Auto) 8.90 H (1.7-7.0) K/uL Lymph # (Auto) 2.40 (0.90-2.90) K/uL Sierra # (Auto) 0.90 (0.00-0.90) K/UL Eos # (Auto) 0.10 (0.00-0.50) K/uL Baso # (Auto) 0.00 (0.00-0.30) K/uL Abs Immat Gran (auto) 0.10 (0.00-0.30) K/uL Imm/Tot Granulo (auto) 0.9 % Sodium 136 (135-149) mmol/L Potassium 3.2 L (3.6-5.1) mmol/L Chloride 102 (96-114) mmol/L Carbon Dioxide 26 (20-32) mmol/L Anion Gap 8 (7-15) mEq/L BUN 26 (7-30) mg/dL Creatinine 0.9 (0.5-1.5) mg/dL Estimated GFR 62 ml/min Glucose 44 L* (60-115) mg/dL Calcium 9.7 (8.4-10.6) mg/dL Discharge Plan Discharge Clinical Impression: Hypoglycemia, Fall Patient Disposition: [facility] Condition: Stable Additional Instructions: Continue current care with the exception of discontinuing glargine insulin. Activity Level: No Restrictions Discharge Diet: Regular Prescriptions: No Action acetaminophen 500 mg capsule 1,000 mg PO TID PRN ondansetron HCl 4 mg tablet 4 mg PO Q6H PRN simethicone 80 mg tablet,chewable 80 mg PO TID loperamide 2 mg Capsule 4 mg PO BID PRN sodium chloride 1,000 mg Tablet,Soluble 1,000 mg PO TIDWM 30 Days Qty: 90 0RF hydrocortisone 5 mg tablet 20 mg PO BID levothyroxine 75 mcg tablet 75 mcg PO DAILY estradiol 0.01 % (0.1 mg/gram) cream 1 appful VAGINAL .MOTH@HS Rx Instructions: FRI, coenzyme Q10 100 mg capsule 100 mg PO HS olopatadine 0.2 % drops 1 drp ophthalmic (eye) DAILY cholecalciferol (vitamin D3) 50 mcg (2,000 unit) tablet 4,000 unit PO HS Women's One Daily 18 mg iron-400 mcg-500 mg Ca tablet 1 tab PO DAILY vitamin B complex [Vitamins B Complex] Capsule 1 cap PO DAILY Probiotic 3 billion cell capsule 3,000 mmu cells PO DAILY Rx Instructions: administer with a meal sertraline 50 mg tablet 50 mg PO DAILY glucose [Dex4 Glucose] 4 gram tablet,chewable 4 g PO Q15M PRN aspirin 81 mg tablet,chewable 81 mg PO HS Glucagon Emergency Kit (human) 1 mg recon soln 1 mg IM ONCE PRN insulin aspart U-100 100 unit/mL (3 mL) insulin pen 7 - 10 unit subcut TIDWM Rx Instructions: 10 UNITS IN AM 7 UNIT AT LUNCH 8 UNIT SUPPER insulin aspart U-100 100 unit/mL (3 mL) insulin pen 5 sliding scale dose subcut USEASDIRECTD Rx Instructions: 0-5 UNITS PER SLIDING SCALE nitroglycerin 0.4 mg tablet, sublingual 0.4 mg sublingual Q5M PRN Metamucil (with sugar) 3.4 gram Powder In Packet 1 tbsp PO TIDWM Qty: 1045 0RF diphenoxylate-atropine 2.5-0.025 mg Tablet 2 tab PO QID Qty: 240 0RF sodium bicarbonate 650 mg Tablet 1,300 mg PO TIDWM Qty: 180 0RF morphine 15 mg tablet extended release 15 mg PO TID insulin glargine [Lantus Solostar U-100 Insulin] 100 unit/mL (3 mL) insulin pen 6 unit SUBCUT DAILY Qty: 15 0RF fludrocortisone 0.1 mg Tablet 0.3 mg PO DAILY Follow Up/Referrals: Onur Schreiber MD [Primary Care Provider] - Stand Alone Forms: [email or web address] Info Instructions
--- OUTSIDE RECORDS SUMMARY | 2024-05-13 20:45 | XMS_ITS ---
Author Organization [facility] Address [address] [place] [address] Care Team Providers Care Yard Supervisor Cotton Gin Name Role Phone Unavailable Unavailable Unavailable Surgery Details Not on file Complications Check Surgery Details section. Procedure Estimated Blood Loss Check Surgery Details section. Procedure Findings Check Surgery Details section. Procedure Specimens Taken Check Surgery Details section.
--- OUTSIDE RECORDS SUMMARY | 2024-05-13 20:45 | XMS_ITS | Clinical Summary ---
Author Organization [facility] Address [place], [place] [address] Care Team Providers Care Paginator Name Role Phone Miladis Long Lucas RN Unavailable Perla Corrigan RN Unavailable [phone] Onur Schreiber MD Primary Care Provider Vivian Caruso MD Unavailable [phone] Allergies Active Allergy Reactions Criticality Noted Date [...] End Date Status ASSURE MARTI 28 gauge miscIndications:Typ e 1 diabetes mellitus with hypoglycemia and without coma (HC) USE THREE TIMES A DAY DIRECTED 300 Each 2 12/04/2018 Active nitroglycerin (NITROSTAT) 0.4 mg sublingual tabletIndications:C AD in zuni artery Place 1 tablet under the tongue [...] A DAY 300 Strip 3 12/03/2019 Active ULTICARE PEN NEEDLE 29 gauge x 1/2Indications:Typ e 1 diabetes mellitus with hypoglycemia and without coma (HC) USE 3-5 TIMES DAILY PER MD INSTRUCTIONS 500 Each 3 07/24/2020 Active aspirin (ECOTRIN) 81 mg enteric coated tabletIndications:C oronary artery disease involving zuni coronary artery of zuni heart with unstable angina pectoris (HC) TAKE ONE TABLET DAILY WITH A MEAL AT 8PM 90 tablet 2 10/02/2020 Active Additional Information Patient taking differently: 81 mgOralDAILY EVENING, Informant: Detention MAR, Reported on 08/31/2023 cholecalciferol, Vitamin D3, 2,000 unit tabletIndications:C ompression fracture of L1 lumbar vertebra, sequela TAKE TWO TABLETS DAILY AT 8PM 180 tablet 3 11/30/2020 Active Additional Information Patient taking differently: 4,000 unitOralDAILY EVENING, Informant: Detention MAR, Reported on 08/31/2023 levothyroxine (SYNTHROID) 75 mcg tabletIndications:A cquired hypothyroidism TAKE ONE TABLET DAILY BEFORE BREAKFAST AT 8AM 90 tablet 11/30/2020 Active Additional Information Patient taking differently: 75 mcgOralBEFORE BREAKFAST, Informant: Detention ARMANDO, Reported on 08/31/2023 estradioL (ESTRACE) 0.01% (0.1 mg/g) vaginal creamIndications:Va ginal atrophy 1 gm intravaginally every Friday and 09/03/2023 Active olopatadine (PATADAY) 0.2 % ophthalmic solutionIndications :Environmental allergies Place 1 drop into both eyes once daily at 8am 0 09/03/2023 Active sodium chloride 1,000 mg soluble tabletIndications:H yponatremia Take 1,000 mg by mouth three times daily 09/03/2023 Active vitamin B complex (B Complex 1) tabletIndications:P reventive measure Take 1 Tablet by mouth once daily. 0 09/03/2023 Active fludrocortisone (FLORINEF) 0.1 mg tabletIndications:A drenal insufficiency (Bon Homme's disease) (HC) Take 3 Tablets (0.3 mg) by mouth once daily. 90 Tablet 2 12/15/2023 Active Glucagon Emergency Kit, human, 1 mg injection Inject 1 mg intramuscular each time if needed. 09/05/2023 Active diphenoxylate-atrop ine, 2.5-0.025 mg, (LOMOTIL) 2.5-0.025 mg tablet Take 2 Tablets by mouth four times daily. 11/27/2023 Active sertraline (ZOLOFT) 50 mg tabletIndications:A nxiety state Take 1 Tablet (50 mg) by mouth once daily. 12/15/2023 Active acetaminophen (Tylenol Extra Strength) 500 mg [...] times daily if needed for Diarrhea. Active Pdgbaxwrzmrgs-Ssp-X A-Ginkgo (One Daily Women 50 Plus) 400-120 mcg-mg tab Take 1 Tablet by mouth once daily. Active sodium bicarbonate 650 mg tablet Take 1,300 mg by mouth three times daily. Active levETIRAcetam (Keppra) 500 mg tabletIndications:S eizure (HC) Take 1 Tablet (500 mg) by mouth two times daily. 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 03/26/2024 Active Active Problems Problem Noted Date Diagnosed [...] up to donate her [facility] to the [facility]. Call [phone] right after to donate. Essential hypertension 02/19/2017 Type 1 diabetes mellitus with complication 02/19 Overview: She developed Diabetes in 1997. She was diagnosed with Type [address] 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 [...] & L3 lumbar vertebra 05/1406/19/2012 Adrenal insufficiency (Bon Homme's disease) 2011 Renal tubular acidosis, type 4 [...] Encounters Date Type Department Care Team Description 05/12/2024 Telephone Don, [facility] [address] [place] [phone] Vivian Newman MD Results 05/05/2024 Lab Requisition [facility] [phone] Onur Schreiber MD 05/03/2024 Lab Requisition [facility] [phone] Linda Cuevas NP 04/28/2024 Telephone [facility] [address] [place] [phone] Vivian Newman MD Results 04/21/2024 Lab Requisition [facility] [phone] Onur Schreiber MD 04/20/2024 Telephone [facility] [address] [place] [phone] Vivian Newman MD Results 04/13/2024 Lab Requisition [facility] [phone] Onur Schreiber MD 04/13/2024 Lab Requisition [address] [address] Onur Schreiber MD 04/08/2024 3:30 PM CDT Phone Office Visit [facility] [address] [place] [phone] Vivian Newman MD Phone Visit; Follow Up 04/05/2024 Telephone [facility] [address] [place] [phone] Vivian Newman MD Appointment 04/01/2024 Lab Requisition [facility] [phone] Onur Schreiber MD 03/22/2024 9:44 PM CDT - 03/26/2024 9:33 AM CDT Hospital Encounter [facility] [address] [place] [address] [facility] Hospitalists [facility], MD Maryanne Reese, MD Linnea Greene Ashfaq, MD Chronic low back pain, unspecified back pain laterality, unspecified whether sciatica present (Primary Dx); Seizure (HC); 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 (HC) Discharge Disposition: [facility] Facility 03/16/2024 Telephone Don, [facility], [facility] [address] [place] [address] Vivian Newman MD Medication Management 03/15/2024 Lab Requisition [facility] [phone] Linda Cuevas NP 03/08/2024 Telephone Don, [facility], [facility] [address] [place] [address] Vivian Newman MD Medication Management (Questions) 03/01/2024 Lab Requisition [facility] [phone] Onur Schreiber MD 02/27/2024 Telephone Don, [facility], [facility] [address] [place] [address] Vivian Newman MD Medication Management (predniSONE 5 mg/5 mL solution) 02/20/2024 Lab Requisition [facility] [phone] Onur Schreiber MD 02/19/2024 Telephone Don [facility], [facility] [address] [place] [address] Vivian Newman MD Medication Management (predniSONE 5 mg/5 mL solution ) from Last 3 Months Immunizations Name Administration [...] Disease Father heart attack d ied of [place] at 62 Other Maternal Grandmother at 99.5 [...] 11:30 AM CDT Phone Office Visit [facility] [address] [place] [phone] Vivian Newman MD [address] [place] [address] Health Maintenance Due Date Last Done Comments Zoster (shingles) series for age 50+ (1 of 2) 1987 Medicare Wellness for age 65+ 01/09/2014 01/08/2013 Depression screening for age 12+ 07/07/2021 07/07/2020, 07/04/2020, 07/03/2020, Additional history exists BMI (ht and wt on same day) for age 18+ 06/07/2022 06/07/2021, 11/10/2020, 10/06/2020, Additional history exists COVID-19 vaccine series ( season) 2023 08/26/2023, 06/11/2023, 08/30/2022, Additional history exists Influenza for age 65+ 07/04/2024 08/26/2023 , 07/24/2022, 08/03/2021, Additional history exists Tetanus booster 06/01/2031 06/01/2021, 07/0 07/2010, 07/03/2000 DEXA/DXA scan for age 65+ Addressed 03/12/2012 (Dec lined) Overridden with the intention of not completing the topic Pneumococcal series for age 65+ Completed 11/01/2015, 10/23/2007, 09/03/1999 Tdap Completed 06/01/2021 Procedures Procedure Name Priority Date/Time Associated Diagnosis Comments ELECTROLYTE PANEL Routine 05/11/2024 7:0 8 AM CDT Primary adrenocortical insufficiency (HC) CBC WITH AUTO DIFFERENTIAL Routine 05/04/2024 7:20 AM CDT Primary adrenocortical insufficiency (HC) BASIC METABOLIC PANEL Routine 05/04/2024 7:20 AM CDT Primary adrenocortical insufficiency (HC) CBC WITH AUTO DIFFERENTIAL Routine 05/04/2024 7:20 AM CDT Primary adrenocortical insufficiency (HC) ELECTROLYTE PANEL Routine 04/27/2024 7:1 5 AM CDT Primary adrenocortical insufficiency (HC) Type 1 diabetes mellitus with diabetic peripheral angiopathy without gangrene (HC) BASIC METABOLIC PANEL Routine 04/13/2024 8:24 AM CDT Hyperkalemia Primary adrenocortical insufficiency (HC) PROTEIN ELP,SERUM Routine 04/06/2024 7:3 4 AM CDT Type 1 diabetes mellitus with other specified complication (HC) BASIC METABOLIC PANEL Routine 04/06/2024 7:34 AM CDT Type 1 diabetes mellitus with other specified complication (HC) HEMOGLOBIN A1C SCREENING Routine 04/06/2024 7:34 AM CDT Type 1 diabetes mellitus with other specified complication (HC) GLUCOSE METER Timed 03/26/2024 6:32 AM CDT [...] Essential (primary) hypertension Primary adrenocortical insufficiency (HC) from Last 3 Months Results * (ABNORMAL) ELECTROLYTE PANEL (05/11/2024 7:08 AM CDT) Only the most recent of2 resultswithin the time period is included. SODIUM 135(L) 136 - 145 mmol/L 05/11/2024 8:52 AM CDT [facility] POTASSIUM 4.0 3.5 - 5.1 mmol/L 05/11/2024 8:52 AM T [facility] CHLORIDE 98 98 - 107 mmol/L 05/11/2024 8:52 AM T [facility] CO2,TOTAL 26 22 - 29 mmol/L 05/11/2024 8:52 AM T [facility] ANION GAP 11 5 - 18 05/11/2024 8:52 AM T [facility] Blood BLOOD SPECIMEN / Unknown Butterfly / Unknown 05/11/2024 7:08 AM CDT 05/11/2024 8:23 AM CDT Onur Schreiber MD CHEMISTRY [facility] [address] [place] [address] * CBC WITH AUTO DIFFERENTIAL (05/04/2024 7:20 AM T) WHITE BLOOD COUNT 9.1 4.5 - 11.0 thou/cu mm 05/04/2024 8:29 AM [facility] RED BLOOD COUNT 4.04 4.00 - 5.20 mil/cu mm 05/04/2024 8:29 AM [facility] HEMOGLOBIN 12.8 12.0 - 16.0 g/dL 05/04/2024 8:29 AM [facility] HEMATOCRIT 39.3 33.0 - 51.0 % 05/04/2024 8:29 AM [facility] MCV 97 80 - 100 fL 05/04/2024 8:29 AM [facility] MCH 31.7 26.0 - 34.0 pg 05/04/2024 8:29 AM [facility] MCHC 32.6 32.0 - 36.0 g/dL 05/04/2024 8:29 AM [facility] RDW 14.2 11.5 - 15.5 % 05/04/2024 8:29 AM [facility] PLATELET COUNT 256 140 - 440 thou/cu mm 05/04/2024 8:29 AM [facility] MPV 9.7 6.5 - 11.0 fL 05/04/2024 8:29 AM [facility] % NEUT 71.9 % 05/04/2024 8:29 AM [facility] % LYMPH 19.3 % 05/04/2024 8:29 AM [facility] % MONO 7.4 % 05/04/2024 8:29 AM [facility] % EOS 1.1 % 05/04/2024 8:29 AM [facility] % BASO 0.3 % 05/04/2024 8:29 AM [facility] ABSOLUTE NEUTROPHILS 6.5 1.7 - 7.0 thou/cu mm 05/04/2024 8:29 AM [facility] ABSOLUTE LYMPHOCYTES 1.8 0.9 - 2.9 thou/cu mm 05/04/2024 8:29 AM [facility] ABSOLUTE MONOCYTES 0.7 <0.9 thou/cu mm 05/04/2024 8:29 AM [facility] ABSOLUTE EOSINOPHILS 0.1 <0.5 thou/cu mm 05/04/2024 8:29 AM [facility] ABSOLUTE BASOPHILS 0.0 <0.3 thou/cu mm 05/04/2024 8:29 AM [facility] Blood BLOOD SPECIMEN / Unknown Butterfly / Unknown 05/04/2024 7:20 AM CDT 05/04/2024 8:16 AM CDT Linda Cuevas NP HEMATOLOGY Performing Organization Address City/[facility]/ZIP Co de Phone Number [facility] [address] [place] [phone] * (ABNORMAL) BASIC METABOLIC PANEL (05/04/2024 7:20 AM CDT) Only the most recent of7 resultswithin the time period is included. SODIUM 138 136 - 145 mmol/L 05/04/2024 8:41 AM [facility] POTASSIUM 3.8 3.5 - 5.1 mmol/L 05/04/2024 8:41 AM [facility] CHLORIDE 101 98 - 107 mmol/L 05/04/2024 8:41 AM [facility] CO2,TOTAL 26 22 - 29 mmol/L 05/04/2024 8:41 AM [facility] ANION GAP 11 5 - 18 05/04/2024 8:41 AM [facility] GLUCOSE 334(H) 70 - 99 mg/dL 05/04/2024 8:41 AM [facility] CALCIUM 9.4 8.8 - 10.2 mg/dL 05/04/2024 8:41 AM [facility] BUN 26(H) 8 - 23 mg/dL 05/04/2024 8:41 AM CDT [facility] CREATININE 0.98(H) 0.50 - 0.90 mg/dL 05/04/2024 8:41 AM T [facility] BUN/CREAT RATIO 27(H) 10 - 20 8:41 AM CDT [facility] eGFR 56(L) >90 mL/min/1.7 3m2 05/04/2024 8:41 AM T [facility] Comment:As of 2022, eG FR is calculated by the CKD-EPI creatinine equation without race adjustment. ??eGFR can be influenced by muscle mass, exercise, and diet. ??The reported eGFR is an estimation only and is only applicable if the renal function is stable. Blood BLOOD SPECIMEN / Unknown Butterfly / Unknown 05/04/2024 7:20 AM CDT 05/04/2024 8:16 AM CDT Linda Cuevas NP CHEMISTRY [facility] [address] [place] [address] * (ABNORMAL) HEMOGLOBIN A1C SCREENING (04/06/2024 7:34 AM CDT) HEMOGLOBIN A1C SCREENING 9.0(H) <=6.4 % 04/06/2024 9:28 AM CDT [facility] Blood BLOOD SPECIMEN / Unknown Butterfly / Unknown 04/06/2024 7:34 AM CDT 04/06/2024 9:15 AM CDT Narrative [facility] - 04/06/2024 9:28 AM CDT ? (<5.7%) ?Normal ? (5.7% to 6.4%) ? Indicates prediabetes ? (>=6.5%) ? Confirms diabetes Falsely low levels may be seen with: Recent Transfusion, Recent Significant Blood Loss, Hemolytic Diseases, or Falsely elevated levels may be seen with: Untreated Anemias, Splenectomy Onur Schreiber MD CHEMISTRY [facility] [address] [place] [address] * (ABNORMAL) PROTEIN ELP,SERUM (04/06/2024 7:34 AM CDT) ELP,ALBUMIN 3.62 3.31 - 5.31 g/dL 04/08/2024 3:26 PM CDT [facility] ELP,ALPHA 1 0.28 0.19 - 0.42 g/dL 04/08/2024 3:26 PM CDT [facility] ELP,ALPHA 2 0.84 0.44 - 1.03 g/dL 04/08/2024 3:26 PM CDT [facility] ELP,GAMMA 0.43(L) 0.59 - 1.46 g/dL 04/08/2024 3:26 PM CDT [facility] ELP,BETA 0.74 0.52 - 1.05 g/dL 04/08/2024 3:26 PM CDT [facility] MONOCLONAL PEAK 1 0.06 <=0.00 g/dL 04/08/2024 3:26 PM CDT [facility] MONOCLONAL PEAK 2 0.05 <=0.00 g/dL 04/08/2024 3:26 PM CDT [facility] ELP INTERP,SERUM Possible monoclonal peaks in gamma region. Recommend Immunofixation to clarify nature of the peaks. Immunofixation ([id number]) could be performed on the current specimen if testing is ordered (as an ADD-ON) within 14 days of the date of collection. Interpreted and electronically signed by: Madison Vega MD 04/08/2024 3:26 PM CDT [facility] PROTEIN,TOTAL 5.9(L) 6.0 - 8.0 g/dL 04/08/2024 3:26 PM CDT [facility] Blood BLOOD SPECIMEN / Unknown Butterfly / Unknown 04/06/2024 7:34 AM CDT 04/06/2024 9:15 AM CDT Onur Schreiber MD CHEMISTRY Performing Organization Address [facility] Co de Phone Number [facility] [address] [place] [address], [place] * (ABNORMAL) GLUCOSE METER (03/26/2024 6:32 AM CDT) Only the most recent of13 resultswithin the time period is included. GLUCOSE METER 247(H) 65 - 100 mg/dL 03/26/2024 6:32 AM CDT [facility] Blood BLOOD SPECIMEN / Unknown 03/26/2024 6:32 AM CDT 03/26/2024 6:32 AM CDT Andrae Yarbrough MD CHEMISTRY Performing Organization Address [facility] de Phone Number [facility] [address] [place] [address], [place] * POTASSIUM (03/25/2024 10:54 AM CDT) POTASSIUM 4.5 3.5 - 5.1 mmol/L 03/25/2024 11:55 AM CDT [facility] Blood BLOOD SPECIMEN / Unknown Capillary / Unknown 03/25/2024 10:54 AM CDT 03/25/2024 11:10 AM CDT Claudia Cardenas RN CHEMISTRY Performing Organization Address [facility] Co de Phone Number [facility] [address] [place] [place] [id number], [place] * SCAN CORRESP-LABORATORY RESULTS (03/24/2024 12:28 PM [...] unspecified provider. Other Clinical Staff OTHER * Continuos video EEG (veeg) monitoring (03/23/2024 9:43 AM CDT) Narrative Lanny Abraham MBBS - 03/23/2024 9:43 AM CDT Lanny Abraham MBBS ? 03/23/2024 ??9:48 AM [facility] [place] residential monitoring/ video EEG report Name: Shira Stauffer Test Number: ??See below Test date: 03/23/24 ?? : 1935 Referring Service: ??@SERVDEPT@ Age: 88 y.o. Referring Physician: [place] [facility]: videoEEG/ LTM Interpreting Physician: Lanny Abraham [...] - (Study date: 03/23/2024,Study duration:6h 30m, Study# [id number]) Indication: Unchanged, as detailed above. Procedural details: [...] - 2.0 mmol/L 03/23/2024 12:27 AM CDT [facility] Blood BLOOD SPECIMEN / Unknown Venipuncture / Unknown 03/22/2024 11:09 PM CDT 03/22/2024 11:35 PM CDT Rajan Tracey DO CHEMISTRY [facility] [address] [place], [place] [address] * Phosphorus (03/22/2024 11:09 PM CDT) Pathologist [facility] PHOSPHORUS 3.1 2.5 - 4.5 mg/dL 03/23/2024 3:01 AM CDT [facility] Blood BLOOD SPECIMEN / Unknown Venipuncture / Unknown 03/22/2024 11:09 PM CDT 03/22/2024 11:34 PM CDT Rajan Tracey DO CHEMISTRY Performing Organization Address [facility] Co de Phone Number [facility] [address] [place] [phone], * Ammonia TODAY (03/22/2024 11:09 PM CDT) AMMONIA 25 16 - 60 umol/L 03/23/2024 12:27 AM CDT [facility] Blood BLOOD SPECIMEN / Unknown Venipuncture / Unknown 03/22/2024 11:09 PM CDT 03/22/2024 11:28 PM CDT Narrative [facility] - 03/23/2024 12:27 AM CDT 1. ??Sulfasalazine and its metabolite Sulfapyridine at therapeutic concentrations may lead to falsely low results. 2. ??Temozolomide and its metabolite MTIC may lead to falsely elevated results, and its metabolite AIC may lead to falsely low results. Rajan Tracey DO CHEMISTRY Performing Organization Address [facility] Co de Phone Number [facility] [address] [place] [address], from Last 3 Months Advance Directives Documents on File Type Date Recorded Patient River Captain Expl anation POLST 01/05/2018 11:42 AM TRISTEN YODER 01/02/18 Healthcare Directive 06/02/2017 9:37 AM AN LORE WHALEY, [facility] [place] 05/28/2017 POLST 07/12/2014 2:25 PM TRISTEN MONSALVE, 07/12/2014 POLST 08/19/2012 3:55 PM POLST, AM Farhat KLARISSA, 08/11/12 Healthcare Directive 04/30/2012 3:38 PM HO ME DNR REQUEST FORM, [facility] 04/16/12 * DNR (Latest Code Status on [...] Code Status Discussion: Not Discussed Care Teams Paginator Relationship Specialty Start Date End Date Onur Schreiber MD [address] [place] [address] PCP - General Family Practice 04/17/22 Miladis Long, RN [address] [id number] Evaporator Operator [place] [facility]istered Nurse 08/27/21 Perla Corrigan, RN [address] [address] Evaporator Operator [place] [facility]istered Nurse 08/27/21 Vivian Newman MD [address] [place] [address] Endocrinology 03/03/24
--- OUTSIDE RECORDS SUMMARY | 2024-05-13 20:45 | XMS_ITS | Clinical Summary ---
Author Organization [facility] Address [address] [place] [address] Care Team Providers Care Parts Finisher Name Role Phone Unavailable Primary Care Provider Unavailabl e Source Comments Patient records contain information from all sites at [facility]. For routine questions regarding patient records, call [phone] during business hours, M-F 8:00 AM - 5:00 PM Central Time. Record requests for emergency care only can be directed to [phone] at any time.[facility] Allergies Active Allergy Reactions Criticality Noted [...] Order 1 Unspecified 11 2 Active multivitamin-iron -[id number] (THERAPEUTIC-M) 400 mcg (folic acid) per tablet [...] Disease 05/02/2022 Atherosclerotic Heart Diseas e Of [place] Coronary Artery Without Angina Pectoris 05/02/2022 Hyperlipidemia [...] Fall Risk Screen (Annual) 11/03/2023 COVID-19 Vaccine (2022-2 4 season) 2023 08/26/2023, 06/11/2023, 08/30/2022, Additional history exists Controlled Substance Monitoring 03/03/2024 Influenza Vaccine (#1) 2024 3, 07/24/2022, 08/03/2021, Additional history exists Creatinine Level (Kidney Fun ction Test) 03/24/2025 03/24/2024, 03/22/2024, 03/16/2024, Additional history exists Sodium Level 03/24/2025 03/24/2024, 03/04, 03/16/2024, Additional history exists Potassium Level 03/25/2025 03/25/2024, 03/04, 03/22/2024, Additional history exists DTaP,Tdap,and Td Vaccines (2 - Td or Tdap) 06/01/2031 06/01/2021, 05/11/2010 Pneumococcal vaccine (65+ years) Completed 11/01/2015, 10/23/2007, 09/03/1999 Procedures Procedure Name Priority Date/Time Associated Diagnosis Comments EXTI POTASSIUM, S/P Routine 03/25/2024 1 0:54 AM CDT EXTI BASIC METABOLIC PANEL, S/P Routine 03/24/2024 7:56 AM CDT from Last 3 Months or Most Recently Relevant to Health Maintenance Advance Directives For more information, please contact: [phone] Documents on File Type Date Recorded Patient Planning Advisor Expl anation Advance Directives 03/10/2023 10:42 AM [...]
--- OUTSIDE RECORDS SUMMARY | 2024-05-13 20:45 | XMS_ITS | Referral Summary ---
Author Organization [facility] Address [address] [place] [address] Care Team Providers Care Retention Manager Name Role Phone Unavailable Primary Care Provider Unavailabl e Source Comments Patient records contain information from all sites at [facility]. For routine questions regarding patient records, call [phone] during business hours, M-F 8:00 AM - 5:00 PM Central Time. Record requests for emergency care only can be directed to [phone] at any time.[facility] Allergies Active Allergy Reactions Criticality Noted Date [...] Order 1 Unspecified 11 2 Active multivitamin-iron -[id number] (THERAPEUTIC-M) 400 mcg (folic acid) per tablet [...] Disease 05/02/2022 Atherosclerotic Heart Diseas e Of [place] Coronary Artery Without Angina Pectoris 05/02/2022 Hyperlipidemia [...] Advance Directives For more information, please contact: [phone] Documents on File Type Date Recorded Patient Kaiako Kura Tuarua Expl anation Advance Directives 03/10/2023 10:42 AM [...]
[2024-05-13 21:16] LABS: Basophils Percent Auto 0.2 % (0.0-3.0); Hematocrit 37.7 % (33.0-51.0); Hemoglobin* 12.2 gm/dL (12.0-16.0); Immature Granulocytes Pct Auto 0.9 %; Lymphocytes Percent Auto 19.1 % (20-44); Mean Corpuscular HGB Conc 32 gm/dL (32-36); Mean Corpuscular Hemoglobin 30 pg (26-34); Mean Corpuscular Volume 94 fL (80-100); Monocytes Percent Auto 7.5 % (0.0-11.0); Neutrophils Percent Auto 71.3 % (42.0-72.0); Platelet Count* 258 K/uL (140-440); RDW Coefficient of Variation % 13.5 % (11.5-15.5); Red Blood Count 4.01 m/uL (4.00-5.20); White Blood Count* 12.44 K/uL (4.50-11.00)
[2024-05-13 21:18] LABS: Slide Review Reflex No
[2024-05-13 21:25] LABS: Chloride* 102 mmol/L (96-114); Potassium* 3.2 mmol/L (3.6-5.1); Sodium* 136 mmol/L (135-149)
[2024-05-13 21:28] LABS: Anion Gap 8 mEq/L (7-15); Blood Urea Nitrogen* 26 mg/dL (7-30); Carbon Dioxide* 26 mmol/L (20-32); Creatinine* 0.9 mg/dL (0.5-1.5); Estimated Glomerular Filt Rate 62 ml/min
[2024-05-13 21:29] LABS: Calcium* 9.7 mg/dL (8.4-10.6)
[2024-05-13 21:32] LABS: Glucose* 44 mg/dL (60-115)
--- NOTE | 2024-05-13 21:32 | PC.NURSE ---
Lab called with critical blood sugar of 44. physican and RN already aware and treating.
--- NOTE | 2024-05-13 22:50 | ED.NURSE ---
RN to RN report given to [facility] detailing labs found today and medication change. Patient will require EMS transport back to facility.
--- NOTE | 2024-05-13 22:58 | PC.NURSE ---
Updated [facility] that pt's ostomy bag is leaking. attempted to clean/cover as we do not have the correct supplies to change out bag.
--- NOTE | 2024-05-14 00:04 | PC.NURSE ---
patient DC back to half-way. awake and alert at time of DC. DC instructions reviewed with SNF nurse via telephone.
== END 2024-05-14 00:04 ==
PROVIDERS: Emergency Provider Internal Medicine; PCP Family Medicine
DX: E16.2 Hypoglycemia, unspecified (principal); W19.XXXA Unspecified fall, initial encounter
CPT/HCPCS: 36415; 70450; 72125; 80048; 81003; 82962; 85025; 99283; 99285

== ENCOUNTER 2024-05-13 23:18 | Outpatient (CLI) | payer BC, SELFPAY ==
--- OUTSIDE RECORDS SUMMARY | 2024-05-19 19:15 | XMS_ITS ---
Author Organization [facility] Address [address] [place] [address] Care Team Providers Care Dough Brake Machine Operator Name Role Phone Unavailable Unavailable Unavailable Surgery Details Not on file Complications Check Surgery Details section. Procedure Estimated Blood Loss Check Surgery Details section. Procedure Findings Check Surgery Details section. Procedure Specimens Taken Check Surgery Details section.
--- OUTSIDE RECORDS SUMMARY | 2024-05-19 19:15 | XMS_ITS | Referral Summary ---
Author Organization [facility] Address [address] [place] [address] Care Team Providers Care Hot Strip Mill Supervisor Name Role Phone Unavailable Primary Care Provider Unavailabl e Source Comments Patient records contain information from all sites at [facility]. For routine questions regarding patient records, call [phone] during business hours, M-F 8:00 AM - 5:00 PM Central Time. Record requests for emergency care only can be directed to [phone] at any time.[facility] Allergies Active Allergy Reactions Criticality Noted Date [...] Order 1 Unspecified 11 2 Active multivitamin-iron -OY-Jx-teubnxqt (THERAPEUTIC-M) 400 mcg (folic acid) per tablet [...] Disease 05/02/2022 Atherosclerotic Heart Diseas e Of [place] Coronary Artery Without Angina Pectoris 05/02/2022 Hyperlipidemia [...] Advance Directives For more information, please contact: [phone] Documents on File Type Date Recorded Patient Hosiery Mater Expl anation Advance Directives 03/10/2023 10:42 AM [...]
--- OUTSIDE RECORDS SUMMARY | 2024-05-19 19:15 | XMS_ITS | Clinical Summary ---
Author Organization [facility] Address [address] [place] [address] Care Team Providers Care Dental Professional Name Role Phone Unavailable Primary Care Provider Unavailabl e Source Comments Patient records contain information from all sites at [facility]. For routine questions regarding patient records, call [phone] during business hours, M-F 8:00 AM - 5:00 PM Central Time. Record requests for emergency care only can be directed to [phone] at any time.[facility] Allergies Active Allergy Reactions Criticality [...] Order 1 Unspecified 11 2 Active multivitamin-iron -SK-Oo-qqurtkaa (THERAPEUTIC-M) 400 mcg (folic acid) per tablet [...] Disease 05/02/2022 Atherosclerotic Heart Diseas e Of [place] Coronary Artery Without Angina Pectoris 05/02/2022 Hyperlipidemia [...] Advance Directives For more information, please contact: [phone] Documents on File Type Date Recorded Patient Aerobics Instructor Expl anation Advance Directives 03/10/2023 10:42 [...]
--- OUTSIDE RECORDS SUMMARY | 2024-05-19 19:15 | XMS_ITS | Clinical Summary ---
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 (HC) TAKE ONE TABLET DAILY WITH A MEAL AT 8PM 90 tablet 2 10/02/2020 Active Additional Information Patient taking differently: 81 mgOralDAILY EVENING, Informant: [facility], Reported on 08/31/2023 cholecalciferol, Vitamin D3, 2,000 unit tabletIndications:C ompression fracture of L1 lumbar vertebra, sequela TAKE TWO TABLETS DAILY AT 8PM 180 tablet 3 11/30/2020 Active Additional Information Patient taking differently: 4,000 unitOralDAILY EVENING, Informant: [facility], Reported on 08/31/2023 levothyroxine (SYNTHROID) 75 mcg tabletIndications:A cquired hypothyroidism TAKE ONE TABLET DAILY BEFORE BREAKFAST AT 8AM 90 tablet 11/30/2020 Active Additional Information Patient taking differently: 75 mcgOralBEFORE BREAKFAST, Informant: [facility] ARMANDO, Reported on 08/31/2023 estradioL (ESTRACE) 0.01% [...] fludrocortisone (FLORINEF) 0.1 mg tabletIndications:A drenal insufficiency (Glacier's disease) (HC) Take 3 Tablets (0.3 mg) [...] times daily if needed for Diarrhea. Active Faatjknuxpync-Zea-E A-Ginkgo (One Daily Women 50 Plus) 400-120 mcg-mg tab Take 1 Tablet by mouth once daily. Active sodium bicarbonate 650 mg tablet Take 1,300 mg by mouth three times daily. Active levETIRAcetam (Keppra) 500 mg tabletIndications:S eizure (HC) Take 1 Tablet (500 mg) by mouth two times daily. 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 Call [phone] right after to donate. Essential hypertension 02/19/2017 Type 1 diabetes mellitus with complication 02/19 Overview: She developed Diabetes in 1997. She was diagnosed with Type [address] Rodriguez in 07/2013 per Becca Hypothyroidism 11/20/2016 Chronic pain syndrome 08/14/2016 Atherosclerosis of [place] co ronary artery of [place] heart without angina pectoris 04/24/2016 Overview: Dr. 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, type 4 [...] [address] [place] [phone] Vivian Newman MD Results 05/05/2024 Lab Requisition [facility] [phone] Onur Schreiber MD 05/03/2024 Lab Requisition [facility] [phone] Linda Cuevas NP 04/28/2024 Telephone [facility] [address] [place] [phone] Vivian Newman MD Results 04/21/2024 Lab Requisition [facility] [phone] Onur Schreiber MD 04/20/2024 Telephone [facility] [address] [place] [phone] Vivian Newman MD Results 04/13/2024 Lab Requisition [facility] [phone] Onur Schreiber MD 04/13/2024 Lab Requisition [address] [address] Onur Schreiber MD 04/08/2024 3:30 PM CDT Phone Office Visit [facility] [address] [place] [phone] Vivian Newman MD Phone Visit; Follow Up 04/05/2024 Telephone [facility] [address] [place] [phone] Vivian Newman MD Appointment 04/01/2024 Lab Requisition [facility] [phone] Onur Schreiber MD 03/22/2024 9:44 PM CDT - 03/26/2024 9:33 AM CDT Hospital Encounter [facility] [address] [place] [address] [facility], MD Maryanne Reese, MD Linnea Greene Ashfaq, MD Chronic low back pain, unspecified back pain laterality, unspecified whether sciatica present (Primary Dx); Seizure (HC); Coronary artery disease involving [place] coronary artery of [place] heart with unstable angina pectoris (HC) Discharge Disposition: Shelter Facility 03/16/2024 Telephone Don, [facility] [address] [place] [address] Vivian Newman MD Medication Management 03/15/2024 Lab [facility] [phone] Linda Cuevas NP 03/08/2024 Telephone [facility], [facility] [address] [place] [address] Vivian Newman MD Medication Management (Questions) 03/01/2024 Lab Re[facility] [phone] Onur Schreiber MD 02/27/2024 Telephone [facility], [facility] [address] [place] [address] Vivian Newman MD Medication Management (predniSONE 5 mg/5 mL solution) 02/20/2024 Lab Re[facility] [phone] Onur Schreiber MD 02/19/2024 Telephone Don [facility] [address] [place] [address] Vivian Newman MD Medication Management (predniSONE 5 [...] Office Visit [facility] [address] [place] [phone] Vivian Newman MD [address] [place] [address] [...] - 145 mmol/L 05/11/2024 8:52 AM CDT [facility] POTASSIUM 4.0 3.5 - 5.1 mmol/L 05/11/2024 8:52 AM T [facility] CHLORIDE 98 98 - 107 mmol/L 05/11/2024 8:52 AM T [facility] CO2,TOTAL 26 22 - 29 mmol/L 05/11/2024 8:52 AM T [facility] ANION GAP 11 5 - 18 05/11/2024 8:52 AM T [facility] Blood BLOOD SPECIMEN / Unknown Butterfly / Unknown 05/11/2024 7:08 AM CDT 05/11/2024 8:23 AM CDT Onur Schreiber MD CHEMISTRY [facility] [address] [place] [address] * CBC WITH AUTO DIFFERENTIAL (05/04/2024 7:20 AM T) WHITE BLOOD COUNT 9.1 4.5 - 11.0 thou/cu mm 05/04/2024 8:29 AM [facility] RED BLOOD COUNT 4.04 4.00 - 5.20 mil/cu mm 05/04/2024 8:29 AM [facility] HEMOGLOBIN 12.8 12.0 - 16.0 g/dL 05/04/2024 8:29 AM [facility] HEMATOCRIT 39.3 33.0 - 51.0 % 05/04/2024 8:29 AM [facility] MCV 97 80 - 100 fL 05/04/2024 8:29 AM [facility] MCH 31.7 26.0 - 34.0 pg 05/04/2024 8:29 AM [facility] MCHC 32.6 32.0 - 36.0 g/dL 05/04/2024 8:29 AM [facility] RDW 14.2 11.5 - 15.5 % 05/04/2024 8:29 AM [facility] PLATELET COUNT 256 140 - 440 thou/cu mm 05/04/2024 8:29 AM [facility] MPV 9.7 6.5 - 11.0 fL 05/04/2024 8:29 AM [facility] % NEUT 71.9 % 05/04/2024 8:29 AM [facility] % LYMPH 19.3 % 05/04/2024 8:29 AM [facility] % MONO 7.4 % 05/04/2024 8:29 AM [facility] % EOS 1.1 % 05/04/2024 8:29 AM [facility] % BASO 0.3 % 05/04/2024 8:29 AM [facility] ABSOLUTE NEUTROPHILS 6.5 1.7 - 7.0 thou/cu mm 05/04/2024 8:29 AM [facility] ABSOLUTE LYMPHOCYTES 1.8 0.9 - 2.9 thou/cu mm 05/04/2024 8:29 AM [facility] ABSOLUTE MONOCYTES 0.7 <0.9 thou/cu mm 05/04/2024 8:29 AM [facility] ABSOLUTE EOSINOPHILS 0.1 <0.5 thou/cu mm 05/04/2024 8:29 AM [facility] ABSOLUTE BASOPHILS 0.0 <0.3 thou/cu mm 05/04/2024 8:29 AM [facility] Blood BLOOD SPECIMEN / Unknown Butterfly / Unknown 05/04/2024 7:20 AM CDT 05/04/2024 8:16 AM CDT Linda Cuevas NP HEMATOLOGY Performing Organization Address City/[facility]/ZIP Co de Phone Number [facility] [address] [place] [address] * (ABNORMAL) BASIC METABOLIC PANEL (05/04/2024 7:20 AM CDT) Only the most recent of7 resultswithin the time period is included. SODIUM 138 136 - 145 mmol/L 05/04/2024 8:41 AM [facility] POTASSIUM 3.8 3.5 - 5.1 mmol/L 05/04/2024 8:41 AM [facility] CHLORIDE 101 98 - 107 mmol/L 05/04/2024 8:41 AM [facility] CO2,TOTAL 26 22 - 29 mmol/L 05/04/2024 8:41 AM [facility] ANION GAP 11 5 - 18 05/04/2024 8:41 AM [facility] GLUCOSE 334(H) 70 - 99 mg/dL 05/04/2024 8:41 AM [facility] CALCIUM 9.4 8.8 - 10.2 mg/dL 05/04/2024 8:41 AM [facility] BUN 26(H) 8 - 23 mg/dL 05/04/2024 8:41 AM CDT [facility] CREATININE 0.98(H) 0.50 - 0.90 mg/dL 05/04/2024 8:41 AM T [facility] BUN/CREAT RATIO 27(H) 10 - 20 8:41 AM CDT [facility] eGFR 56(L) >90 mL/min/1.7 3m2 05/04/2024 8:41 AM T [facility] Comment:As of 2022, [...] 8:16 AM CDT Linda Cuevas NP CHEMISTRY [facility] [address] [place] [address] * (ABNORMAL) HEMOGLOBIN A1C SCREENING (04/06/2024 7:34 AM CDT) HEMOGLOBIN A1C SCREENING 9.0(H) <=6.4 % 04/06/2024 9:28 AM CDT [facility] Blood BLOOD SPECIMEN / Unknown Butterfly / Unknown 04/06/2024 7:34 AM CDT 04/06/2024 9:15 AM CDT Narrative [facility] - 04/06/2024 9:28 AM CDT ? (<5.7%) ?Normal ? (5.7% to 6.4%) ? Indicates prediabetes ? (>=6.5%) ? Confirms diabetes Falsely low levels may be seen with: Recent Transfusion, Recent Significant Blood Loss, Hemolytic Diseases, or Falsely elevated levels may be seen with: Untreated Anemias, Splenectomy Onur Schreiber MD CHEMISTRY [facility] [address] [place] [address] * (ABNORMAL) PROTEIN ELP,SERUM (04/06/2024 7:34 AM CDT) ELP,ALBUMIN 3.62 3.31 - 5.31 g/dL 04/08/2024 3:26 PM CDT [facility] ELP,ALPHA 1 0.28 0.19 - 0.42 g/dL 04/08/2024 3:26 PM CDT [facility] ELP,ALPHA 2 0.84 0.44 - 1.03 g/dL 04/08/2024 3:26 PM CDT [facility] ELP,GAMMA 0.43(L) 0.59 - 1.46 g/dL 04/08/2024 3:26 PM CDT [facility] ELP,BETA 0.74 0.52 - 1.05 g/dL 04/08/2024 3:26 PM CDT [facility] MONOCLONAL PEAK 1 0.06 <=0.00 g/dL 04/08/2024 3:26 PM CDT [facility] MONOCLONAL PEAK 2 0.05 <=0.00 g/dL 04/08/2024 3:26 PM CDT [facility] ELP INTERP,SERUM Possible monoclonal peaks in gamma region. Recommend Immunofixation to clarify nature of the peaks. Immunofixation (FEE246/IFS) could be performed on the current specimen if testing is ordered (as an ADD-ON) within 14 days of the date of collection. Interpreted and electronically signed by: Madison Vgea MD 04/08/2024 3:26 PM CDT [facility] PROTEIN,TOTAL 5.9(L) 6.0 - 8.0 g/dL 04/08/2024 3:26 PM CDT [facility] Blood BLOOD SPECIMEN / Unknown Butterfly / Unknown 04/06/2024 7:34 AM CDT 04/06/2024 9:15 AM CDT Onur Schreiber MD CHEMISTRY Performing Organization Address [facility] Co de Phone Number [facility] [address] [place] [address], [place] * (ABNORMAL) GLUCOSE METER (03/26/2024 6:32 AM CDT) Only the most recent of13 resultswithin the time period is included. GLUCOSE METER 247(H) 65 - 100 mg/dL 03/26/2024 6:32 AM CDT [facility] Blood BLOOD SPECIMEN / Unknown 03/26/2024 6:32 AM CDT 03/26/2024 6:32 AM CDT Andrae Yarbrough MD CHEMISTRY Performing Organization Address [facility] de Phone Number [facility] [address] [place] [address], [place] * POTASSIUM (03/25/2024 10:54 AM CDT) POTASSIUM 4.5 3.5 - 5.1 mmol/L 03/25/2024 11:55 AM CDT [facility] Blood BLOOD SPECIMEN / Unknown Capillary / Unknown 03/25/2024 10:54 AM CDT 03/25/2024 11:10 AM CDT Claudia Cardenas RN CHEMISTRY Performing Organization Address [facility] Co de Phone Number [facility] [address] [phone], [place] * SCAN CORRESP-LABORATORY RESULTS (03/24/2024 12:28 [...] ? 03/23/2024 ??9:48 AM [facility], [place] custodial monitoring/ video EEG report Name: Shira Stauffer Test Number: ??See below Test date: 03/23/24 ?? : 1935 Referring Service: ??@[email or web address]@ Age: 88 y.o. Referring Physician: Loly Oden [facility] Procedure: videoEEG/ LTM Interpreting Physician: Lanny Abraham [...] - (Study date: 03/23/2024,Study duration:6h 30m, Study# [id number]) Indication: Unchanged, as detailed above. Procedural details: [...] - 2.0 mmol/L 03/23/2024 12:27 AM CDT [facility] Blood BLOOD SPECIMEN / Unknown Venipuncture / Unknown 03/22/2024 11:09 PM CDT 03/22/2024 11:35 PM CDT Rajan Tracey DO CHEMISTRY [facility] [address] [place], [place] [address] * Phosphorus (03/22/2024 11:09 PM CDT) Pathologist [facility] PHOSPHORUS 3.1 2.5 - 4.5 mg/dL 03/23/2024 3:01 AM CDT [facility] Blood BLOOD SPECIMEN / Unknown Venipuncture / Unknown 03/22/2024 11:09 PM CDT 03/22/2024 11:34 PM CDT Rajan Tracey DO CHEMISTRY Performing Organization Address [facility] Co de Phone Number [facility] [address] [place] [address], * Ammonia TODAY (03/22/2024 11:09 PM CDT) AMMONIA 25 16 - 60 umol/L 03/23/2024 12:27 AM CDT [facility] Blood BLOOD SPECIMEN / Unknown Venipuncture / Unknown 03/22/2024 11:09 PM CDT 03/22/2024 11:28 PM CDT Narrative [facility] - 03/23/2024 12:27 AM CDT 1. ??Sulfasalazine and its metabolite Sulfapyridine at therapeutic concentrations may lead to falsely low results. 2. ??Temozolomide and its metabolite MTIC may lead to falsely elevated results, and its metabolite AIC may lead to falsely low results. 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 Farming Coordinator Expl anation POLST 01/05/2018 11:42 AM TRISTEN YODER 01/02/18 Healthcare Directive 06/02/2017 9:37 AM AN LORE WHALEY, [facility] [place] 05/28/2017 POLST 07/12/2014 2:25 PM TRISTEN MONSALVE, 07/12/2014 POLST 08/19/2012 3:55 PM POLST, AM Farhat KLARISSA, 08/11/12 Healthcare Directive 04/30/2012 3:38 PM HO ME DNR REQUEST FORM, [facility], 04/16/12 * DNR (Latest Code [...] Code Status Discussion: Not Discussed Care Teams Crm Business Analyst Relationship Specialty Start Date End Date Onur Schreiber MD [address] [place] [address] PCP - General Family Practice 04/17/22 Miladis Long, RN [address] [id number] [facility] [place] [facility] Registered Nurse 08/27/21 Perla Corrigan, RN [address] [address] Meal Temperer [place] [facility] Registered Nurse 08/27/21 Vivian Newman MD [address] [place] [address] Endocrinology 03/03/24
== END 2024-05-13 23:19 | disposition home or self-care (01) ==
LOC: AMB 05-19 19:12
PROVIDERS: PCP Family Medicine; Visit Provider Internal Medicine
DX: E16.2 Hypoglycemia, unspecified (principal)
CPT/HCPCS: A0425; A0428